=== PATIENT | male | born 1950 | race Caucasian/White ===

== ENCOUNTER 2018-12-06 09:17 | Inpatient (IN) | payer MEDICARE, OTHER ==
[~2018-12-06] VITALS: Ht 172.7 cm; Wt 72.3 kg
[2018-12-06] MEDS ORDERED: NS IV 1000 ML 1,000 ML IV ONE (09:34)
[2018-12-06 09:42] LABS: BILIRUBIN,URINE NEGATIVE (NEGATIVE); CLARITY,URINE CLEAR; COLOR,URINE YELLOW; GLUCOSE, URINE (UA) NEGATIVE (NEGATIVE); KETONES,URINE NEGATIVE (NEGATIVE); LEUKOCYTE ESTERASE ,URINE NEGATIVE (NEGATIVE); NITRITE,URINE NEGATIVE (NEGATIVE); PH,URINE 7 (5-9); PROTEIN,URINE NEGATIVE (NEGATIVE); UROBILINOGEN,URINE 1 MG/DL (NORMAL)
[2018-12-06 09:43] LABS: BASOPHILS % (AUTO) 0 % (0-10); EOSINOPHILS % (AUTO) 0 % (0-10); HEMATOCRIT 44 % (40-54); HEMOGLOBIN 15.2 G/DL (13.3-17.7); LYMPHOCYTES # (AUTO) 0.8 X 10^3 (1.0-4.0); LYMPHOCYTES % (AUTO) 10 % (12-44); MEAN CORPUSCULAR HEMOGLOBIN 30 PG (25-34); MEAN CORPUSCULAR HGB CONC 35 G/DL (32-36); MEAN CORPUSCULAR VOLUME 88 FL (80-99); MEAN PLATELET VOLUME 9.2 FL (7.4-10.4); MONOCYTES # (AUTO) 1.3 X 10^3 (0.0-1.0); MONOCYTES % (AUTO) 16 % (0-12); NEUTROPHILS # (AUTO) 5.9 X 10^3 (1.8-7.8); NEUTROPHILS % (AUTO) 74 % (42-75); PLATELET COUNT 193 10^3/uL (130-400); RED CELL DISTRIBUTION WIDTH 12.7 % (10.0-14.5); WHITE BLOOD COUNT 7.9 10^3/uL (4.3-11.0)
[2018-12-06] MEDS ORDERED: RT-ALBUTEROL/IPRATROPIUM 3 ML (DUONEB) VIAL INH ONE (09:45)
[2018-12-06 09:51] LABS: BACTERIA,URINE NEGATIVE /HPF
[2018-12-06 09:54] LABS: ALANINE AMINOTRANSFERASE 20 U/L (0-55); ALKALINE PHOSPHATASE 96 U/L (40-136); BILIRUBIN,TOTAL 0.6 MG/DL (0.1-1.0); BUN/CREATININE RATIO 8; CALCIUM 9.6 MG/DL (8.5-10.1); CARBON DIOXIDE 26 MMOL/L (21-32); CHLORIDE 99 MMOL/L (98-107); CREATININE SERUM 1.18 MG/DL (0.60-1.30); GFR ESTIMATED > 60; GLUCOSE 98 MG/DL (70-105); MAGNESIUM 2.2 MG/DL (1.8-2.4); POTASSIUM 3.8 MMOL/L (3.6-5.0); SODIUM 136 MMOL/L (135-145)
[2018-12-06 09:56] LABS: AMPHETAMINE SCREEN, URINE NEGATIVE (NEGATIVE); BARBITURATE SCREEN URINE NEGATIVE (NEGATIVE); BENZODIAZEPINES SCREEN URINE NEGATIVE (NEGATIVE); CANNABINOID SCREEN, URINE NEGATIVE (NEGATIVE); COCAINE SCREEN URINE NEGATIVE (NEGATIVE); METHADONE STAT NEGATIVE (NEGATIVE); METHAMPHETAMINE SCREEN URINE S NEGATIVE (NEGATIVE); OPIATE SCREEN URINE NEGATIVE (NEGATIVE); OXYCODONE STAT NEGATIVE (NEGATIVE); PROPOXYPHENE STAT NEGATIVE (NEGATIVE); TRICYCLIC ANTIDEPRESSANTS SCRE NEGATIVE (NEGATIVE)
[2018-12-06 10:14] LABS: TSH (THYROID ANALYZER) 1.23 UIU/ML (0.35-4.94)
[2018-12-06] MEDS ORDERED: BSS 15 ML IR PRN (10:15)
--- NOTE | 2018-12-06 10:21 | Diagnostic Imaging Report ---
INDICATION: Altered level status. Comparison made with prior examination from 10/18/14. FINDINGS: The heart size, mediastinal configuration, and pulmonary vascularity are within normal limits. There is no pleural effusion, pneumothorax, or pneumonia. The osseous structures are unremarkable. IMPRESSION: No acute cardiopulmonary abnormality. Dictated by: Dictated on workstation # [id number]
[2018-12-06] MEDS ORDERED: RSP3T (10:56)
[2018-12-06] MEDS ORDERED: [UNRECOGNIZED DRUG - CODE] (10:56)
[2018-12-06] MEDS ORDERED: CLON1TAB13 PO (11:07)
[2018-12-06] MEDS ORDERED: BUPR200T2 PO (11:07)
[2018-12-06] MEDS ORDERED: BNZT1T (11:07)
[2018-12-06] MEDS ORDERED: CLOM25CA3 PO (11:07)
[2018-12-06] MEDS ORDERED: LACTATED RINGERS 1,000 ML IV ONE (11:13)
--- NOTE | 2018-12-06 13:57 | ED General ---
General Chief Complaint: Altered Mental Status Stated Complaint: AMS Nursing Triage Note: Pt to ED via EMS for altered mental status. Pt's sister reports pt has schizophrenia and dementia and is cared for by brother and sister. Sister reports pt began not feeling well a couple of days ago. Sister reports pt is hoarse and has had a cough. Sister reported pt was eating supper last night and then didn't want to smoke or have Dr. Pepper. Sister reports pt "went out" last night and then "came to" again. Sister also reports pt became immobile last night. Pt appears very dry, nose is crusty and eyes are matted shut. Nursing Sepsis Screen: No Definite Risk Source of Information: Patient Exam Limitations: No Limitations History of Present Illness Date Seen by Provider: Dec 06, 2018 Time Seen by Provider: 09:20 Initial Comments This 68-year-old gentleman presents to the emergency room via EMS with altered mental status and weakness. He is accompanied by his brother and sister with whom he lives. They assist with his care. He has paranoid schizophrenia and probably some early dementia. They report he complained of not feeling well over the past couple of days. They passed this off as part of his paranoia. However, they also noted he has sounded coarse and congested. Last night he developed a decreased level of alertness. He did not eat supper. Patient generally smokes and drinks Dr. Pepper throughout the day. He stopped doing both of these things last night and became increasingly somnolent. Mother and sister became more concerned today and activated EMS. Patient is responsive to voice but very somnolent upon arrival. He sounds congested and has mattering of both eyes which has caused his eyes to be sealed shut. He is afebrile. His primary care providers Dr. Vitale. His psychiatrist is Dr. De León in [place]. [facility] Allergies and Home Medications Allergies Coded Allergies: No Known Drug Allergies (Unverified , 12/06/18) Home Medications Clonazepam 1 Mg Tablet, 1 tablet twice a day, (Reported) Trifluoperazine Hcl 5 Mg Tab, 1 bid, (Reported) Patient Home Medication List Home Medication List Reviewed: Yes Review of Systems Review of Systems Constitutional: see HPI, weakness EENTM: see HPI Respiratory: see HPI Cardiovascular: no symptoms reported Gastrointestinal: see HPI Genitourinary: no symptoms reported Musculoskeletal: no symptoms reported Skin: no symptoms reported Psychiatric/Neurological: See HPI Hematologic/Lymphatic: No Symptoms Reported Immunological/Allergic: no symptoms reported Past Ksjaioc-Medkug-Wehpcr Hx Past Med/Social Hx: Reviewed Nursing Past Med/Soc Hx Patient Social History Alcohol Use: Denies Use Recreational Drug Use: No Smoking Status: Current Everyday Smoker Type Used: Cigarettes 2nd Hand Smoke Exposure: Yes Recent Foreign Travel: No Contact w/Someone Who Travel: No Recent Infectious Disease Expo: No Recent Hopitalizations: No Seasonal Allergies Seasonal Allergies: No Past Medical History Surgeries: Yes (esophageal surgery for acid reflux) Tonsillectomy Respiratory: No Cardiac: No Neurological: Yes Dementia Genitourinary: No Gastrointestinal: No Musculoskeletal: No Endocrine: No HEENT: No Cancer: No Psychosocial: Yes Schizophrenia Blood Disorders: No Physical Exam Vital Signs Vital Signs - First Documented 12/06/18 12/06/18 09:18 16:47 Temp 99.6 Pulse 91 Resp 20 B/P (MAP) 148/87 (107) Pulse Ox 93 O2 Delivery Room Air FiO2 21 Capillary Refill : Less Than 3 Seconds Height, Weight, BMI Height: 5'7.00" Weight: 165lbs. oz. 74.057114bj; BMI Method:Stated General Appearance: No Apparent Distress, WD/WN, Other (Decreased level of alertness) HEENT: PERRL/EOMI, Other (Eyes were matted shut until cleaned. Thick mucus in the oropharynx. Portions of TM visualized and normal bilaterally.) Neck: Normal Inspection Respiratory: Lungs Clear, No Accessory Muscle Use, No Respiratory Distress, Decreased Breath Sounds, Other (Upper airway congestion) Cardiovascular: Regular Rate, Rhythm, No Edema, No Murmur Extremity: Normal Inspection, No Pedal Edema Neurologic/Psychiatric: No Motor/Sensory Deficits, Other (Follows commands, moves all extremities, sluggish but alert) Skin: Normal Color, Warm/Dry Focused Exam Lactate Level 12/06/18 13:55: Lactic Acid Level 1.57 Progress/Results/Core Measures Suspected Sepsis Recent Fever Within 48 Hours: No Infection Criteria Present: None New/Unexplained Altered Menta: No Sepsis Screen: No Definite Risk SIRS Temperature:99.6 Pulse: 91 Respiratory Rate: 20 Laboratory Tests 12/06/18 09:21: White Blood Count 7.9 Blood Pressure 148 /87 Mean: 107 12/06/18 13:55: Lactic Acid Level 1.57 Laboratory Tests 12/06/18 09:21: Creatinine 1.18, Platelet Count 193, Total Bilirubin 0.6 Results/Orders Lab Results Laboratory Tests Test 12/06/18 09:21 12/06/18 09:35 12/06/18 13:39 12/06/18 13:55 Range/Units White Blood Count 7.9 4.3-11.0 10^3/uL Red Blood Count 5.01 4.35-5.85 10^6/uL Hemoglobin 15.2 13.3-17.7 G/DL Hematocrit 44 40-54 % Mean Corpuscular Volume 88 80-99 FL Mean Corpuscular Hemoglobin 30 25-34 PG Mean Corpuscular Hemoglobin Concent 35 32-36 G/DL Red Cell Distribution Width 12.7 10.0-14.5 % Platelet Count 193 130-400 10^3/uL Mean Platelet Volume 9.2 7.4-10.4 FL Neutrophils (%) (Auto) 74 42-75 % Lymphocytes (%) (Auto) 10 L 12-44 % Monocytes (%) (Auto) 16 H 0-12 % Eosinophils (%) (Auto) 0 0-10 % Basophils (%) (Auto) 0 0-10 % Neutrophils # (Auto) 5.9 1.8-7.8 X 10^3 Lymphocytes # (Auto) 0.8 L 1.0-4.0 X 10^3 Monocytes # (Auto) 1.3 H 0.0-1.0 X 10^3 Eosinophils # (Auto) 0.0 0.0-0.3 10^3/uL Basophils # (Auto) 0.0 0.0-0.1 10^3/uL Sodium Level 136 135-145 MMOL/L Potassium Level 3.8 3.6-5.0 MMOL/L Chloride Level 99 98-107 MMOL/L Carbon Dioxide Level 26 21-32 MMOL/L Anion Gap 11 5-14 MMOL/L Blood Urea Nitrogen 10 7-18 MG/DL Creatinine 1.18 0.60-1.30 MG/DL Estimat Glomerular Filtration Rate > 60 BUN/Creatinine Ratio 8 Glucose Level 98 70-105 MG/DL Calcium Level 9.6 8.5-10.1 MG/DL Corrected Calcium 9.6 8.5-10.1 MG/DL Magnesium Level 2.2 1.8-2.4 MG/DL Total Bilirubin 0.6 0.1-1.0 MG/DL Aspartate Amino Transf (AST/SGOT) 32 5-34 U/L Alanine Aminotransferase (ALT/SGPT) 20 0-55 U/L Alkaline Phosphatase 96 40-136 U/L C-Reactive Protein High Sensitivity 12.28 H 0.00-0.50 MG/DL Total Protein 7.0 6.4-8.2 GM/DL Albumin 4.0 3.2-4.5 GM/DL TSH [place] Testing 1.23 0.35-4.94 UIU/ML Serum Alcohol < 10 <10 MG/DL Urine Color YELLOW Urine Clarity CLEAR Urine pH 7 5-9 Urine Specific [place] 1.010 L 1.016-1.022 Urine Protein NEGATIVE NEGATIVE Urine Glucose (UA) NEGATIVE NEGATIVE Urine Ketones NEGATIVE NEGATIVE Urine Nitrite NEGATIVE NEGATIVE Urine Bilirubin NEGATIVE NEGATIVE Urine Urobilinogen 1 NORMAL MG/DL Urine Leukocyte Esterase NEGATIVE NEGATIVE Urine RBC (Auto) NEGATIVE NEGATIVE Urine RBC NONE /HPF Urine WBC NONE /HPF Urine Squamous Epithelial Cells NONE /HPF Urine Crystals NONE /LPF Urine Bacteria NEGATIVE /HPF Urine Casts NONE /LPF Urine Mucus NEGATIVE /LPF Urine Culture Indicated NO Urine Opiates Screen NEGATIVE NEGATIVE Urine Oxycodone Screen NEGATIVE NEGATIVE Urine Methadone Screen NEGATIVE NEGATIVE Urine Propoxyphene Screen NEGATIVE NEGATIVE Urine Barbiturates Screen NEGATIVE NEGATIVE Ur Tricyclic Antidepressants Screen NEGATIVE NEGATIVE Urine Phencyclidine Screen NEGATIVE NEGATIVE Urine Amphetamines Screen NEGATIVE NEGATIVE Urine Methamphetamines Screen NEGATIVE NEGATIVE Urine Benzodiazepines Screen NEGATIVE NEGATIVE Urine Cocaine Screen NEGATIVE NEGATIVE Urine Cannabinoids Screen NEGATIVE NEGATIVE Total Creatine Kinase 804 H 30-200 U/L Lactic Acid Level 1.57 0.50-2.00 MMOL/L My Orders Orders - AXEL GRANADOS MD Alcohol (12/06/18 09:34) Cbc With Automated Diff (12/06/18 09:34) Comprehensive Metabolic Panel (12/06/18 09:34) Hs C Reactive Protein (12/06/18 09:34) Drug Screen Stat (Urine) (12/06/18 09:34) Magnesium (12/06/18 09:34) Thyroid Analyzer (12/06/18 09:34) Ua Culture If Indicated (12/06/18 09:34) Ed Iv/Invasive Line Start (12/06/18 09:34) Chest 1 View, Ap/Pa Only (12/06/18 09:34) Albuterol/Ipra Inhalation Soln (Duoneb I (12/06/18 09:45) Svn Small Volume Nebulizer (12/06/18 09:34) Ed Iv/Invasive Line Start (12/06/18 09:34) Ns Iv 1000 Ml (Sodium Chloride 0.9%) (12/06/18 09:34) Balanced Salt Irrigation Soln (Bss Irrig (12/06/18 10:15) Lactated Ringers (Lr 1000 Ml Iv Solution (12/06/18 11:13) Arterial Blood Gas (12/06/18 13:39) Creatine Kinase (12/06/18 13:39) Blood Culture (12/06/18 13:39) Lactic Acid Analyzer (12/06/18 13:39) Azithromycin Injection (Zithromax Inject (12/06/18 14:00) Medications Given in ED Current Medications Medications Dose Ordered Sig/Lisette Route Start Time Stop Time Status Last Admin Dose Admin Albuterol/ Ipratropium 3 ml ONCE ONCE INH 12/06/18 09:45 12/06/18 09:46 DC 12/06/18 09:47 3 ML Lactated Ringer's 1,000 ml @ 0 mls/hr Q0M ONCE IV 12/06/18 11:13 12/06/18 11:14 DC 12/06/18 11:25 1,000 MLS/HR Sodium Chloride 1,000 ml @ 0 mls/hr Q0M ONCE IV 12/06/18 09:34 12/06/18 09:37 DC 12/06/18 09:43 1,000 MLS/HR Vital Signs/I&O 12/06/18 12/06/18 12/06/18 12/06/18 09:18 09:47 15:32 16:00 Temp 99.6 99.6 100.0 Pulse 91 90 Resp 20 20 B/P (MAP) 148/87 (107) 134/76 (95) Pulse Ox 93 93 O2 Delivery Room Air Room Air Room Air 12/06/18 12/06/18 12/06/18 12/06/18 16:00 16:00 16:06 16:47 Pulse 94 91 91 Resp 17 B/P (MAP) 129/66 (87) Pulse Ox 95 94 95 O2 Delivery Room Air Room Air FiO2 21 12/06/18 19:09 Pulse Ox 97 O2 Delivery Room Air Capillary Refill : Less Than 3 Seconds Blood Pressure Mean: 107 Progress Note : Time: 13:54 Progress Note Patient received a DuoNeb treatment which helped loosen some of the secretions and improved aeration. He was hydrated with normal saline followed by LR. He received about 1500 mL before he asked removed his IV. Patient did gradually improve throughout his ER stay. He was able to talk in full sentences and eat some cookies. However, he still remained weak and rather somnolent. He was unable to sit up or stand independently. He was still more confused than baseline. Due to his cough and elevated CRP, blood cultures and lactic acid were obtained. Azithromycin was started empirically. The severe mattering of his eyes was cleared with warm moist cloth. He was then able to open his eyes independently and see normally. Patient's urine has been dark after placement of Silva catheter. I presume he has become dry and is not metabolizing his medications well which is contributing to his altered mental status. Diagnostic Imaging Diagonstic Imaging: Xray Plain Films/CT/US/NM/MRI: chest Comments Chest x-ray viewed by me and report reviewed. See report below: NAME: ALEYDA GUTIERREZ [facility] REC#: [id number] PT STATUS: REG ER : 1950 PHYSICIAN: AXEL GRANADOS MD ADMIT DATE: 12/06/18/ER Signed Date of Exam: 12/06/18 CHEST 1 VIEW, AP/PA ONLY INDICATION: Altered level status. Comparison made with prior examination from 10/18/14. FINDINGS: The heart size, mediastinal configuration, and pulmonary vascularity are within normal limits. There is no pleural effusion, pneumothorax, or pneumonia. The osseous structures are unremarkable. IMPRESSION: No acute cardiopulmonary abnormality. Dictated by: Dictated on workstation # [id number] Dict: 12/06/18 1000 Trans: 12/06/18 1044 Interpreted by: CHARITY SAMUEL MD Electronically signed by: CHARITY SAMUEL MD 12/06/18 1044 Departure Communication (Admissions) Time/Spoke to Admitting Phy: 13:40 Dr. James Impression Primary Impression: Altered mental status Qualified Codes: R41.82 - Altered mental status, unspecified Additional Impressions: Upper respiratory infection Qualified Codes: J06.9 - Acute upper respiratory infection, unspecified Hypovolemia Generalized weakness Schizophrenia Qualified Codes: F20.0 - Paranoid schizophrenia Disposition: 09 ADMITTED INPATIENT Condition: Improved Admissions Decision to Admit Reason: Admit from ER (General) Decision to Admit/Date: Dec 06, 2018 Time/Decision to Admit Time: 13:40 Departure-Patient Inst. Referrals: NO,LOCAL PHYSICIAN (PCP/Family) Primary Care Physician AXEL GRANADOS MD Dec 06, 2018 13:57
[2018-12-06] MEDS ORDERED: AZITHROMYCIN INJECTION 500 MG in NS (IVPB) 250 ML IV ONE (14:00)
--- NOTE | 2018-12-06 15:35 | NUR ---
see med list
[2018-12-06 16:00] VITALS: BP 129/66
[2018-12-06] MEDS ORDERED: ARTIFICAL TEARS 0.4 ML UNIT DOSE (REFRESH PLUS) OU PRN (16:00)
[2018-12-06] MEDS ORDERED: HALOPERIDOL 2 MG (HALDOL) TABLET PO PRN (16:00)
[2018-12-06] MEDS ORDERED: ACETAMINOPHEN 650 MG SUPP (TYLENOL) PR PRN (16:00)
[2018-12-06] MEDS ORDERED: ACETAMINOPHEN 500 MG TAB (TYLENOL) PO PRN ×2 (16:00→18:15)
[2018-12-06] MEDS ORDERED: ONDANSETRON 4 MG/2 ML (SDV) Z0FRAN IV PRN (16:15)
[2018-12-06] MEDS: D5 1/2 NS W/KCL 20 MEQ/L 1,000 ML IV SCH (16:24)
[2018-12-06 16:47] VITALS: BP 129/66
[2018-12-06] MEDS ORDERED: RT-ALBUTEROL/IPRATROPIUM 3 ML (DUONEB) VIAL INH PRN (17:00)
[2018-12-06] MEDS: HALOPERIDOL 0.5 MG (HALDOL) TAB PO PRN (17:54)
[2018-12-06] MEDS ORDERED: diphenhydrAMINE 25 MG TAB (BENADRYL) PO PRN (18:15)
[2018-12-06] MEDS ORDERED: ALPRAZolam 0.25 MG (XANAX) TAB PO PRN (18:15)
[2018-12-06] MEDS ORDERED: HYDROcodone/APAP 5 MG/325 MG (LORTAB) TAB PO PRN (18:15)
[2018-12-06] MEDS ORDERED: DOCUSATE SODIUM 100 MG (COLACE) CAP PO PRN (18:15)
[2018-12-06] MEDS ORDERED: fentaNYL INJECTION 100 MCG/2 ML AMP IVP PRN (18:15)
[2018-12-06] MEDS ORDERED: CALCIUM CARBONATE 500 MG (TUMS) TAB.CHEW PO PRN (18:15)
[2018-12-06] MEDS ORDERED: NICOTINE 21 MG (NICODERM) PATCH TD ONE (18:45)
[2018-12-06 19:00] VITALS: BP 125/63
[2018-12-06] MEDS ORDERED: NICOTINE 21 MG (NICODERM) PATCH ONE (19:32)
[2018-12-06 20:00] VITALS: BP 142/74
[2018-12-06] MEDS: SENNA W/DOCUSATE (SENOKOT S) TABLET PO SCH (20:57)
[2018-12-07] VITALS: BP 133/59
[2018-12-07] MEDS: D5 1/2 NS W/KCL 20 MEQ/L 1,000 ML IV SCH ×3 (01:42→21:31)
[2018-12-07] MEDS: HALOPERIDOL 5 MG/ML (HALDOL) AMP IM PRN ×2 (03:15→21:31)
[2018-12-07 04:00] VITALS: BP 149/75
[2018-12-07 04:15] LABS: BASOPHILS % (AUTO) 0 % (0-10); EOSINOPHILS % (AUTO) 0 % (0-10); HEMATOCRIT 40 % (40-54); HEMOGLOBIN 13.7 G/DL (13.3-17.7); LYMPHOCYTES % (AUTO) 15 % (12-44); MEAN CORPUSCULAR HEMOGLOBIN 30 PG (25-34); MEAN CORPUSCULAR HGB CONC 35 G/DL (32-36); MEAN CORPUSCULAR VOLUME 87 FL (80-99); MONOCYTES # (AUTO) 1.1 X 10^3 (0.0-1.0); MONOCYTES % (AUTO) 16 % (0-12); NEUTROPHILS # (AUTO) 4.6 X 10^3 (1.8-7.8); NEUTROPHILS % (AUTO) 68 % (42-75); PLATELET COUNT 195 10^3/uL (130-400); RED CELL DISTRIBUTION WIDTH 12.3 % (10.0-14.5); WHITE BLOOD COUNT 6.7 10^3/uL (4.3-11.0)
[2018-12-07 04:38] LABS: BUN/CREATININE RATIO 9; CALCIUM 8.8 MG/DL (8.5-10.1); CARBON DIOXIDE 22 MMOL/L (21-32); CHLORIDE 100 MMOL/L (98-107); CREATININE SERUM 0.85 MG/DL (0.60-1.30); GFR ESTIMATED > 60; GLUCOSE 111 MG/DL (70-105); POTASSIUM 3.5 MMOL/L (3.6-5.0); SODIUM 132 MMOL/L (135-145)
--- NOTE | 2018-12-07 06:43 | Diagnostic Imaging Report ---
Indication: Respiratory tract infection, cough. Comparison: 12/06/2018 Findings: Single view of the chest demonstrates minimal atelectasis in the left base. The right lung is clear. The heart is normal. There is no pneumothorax. Osseous structures normal. Impression: Minimal atelectasis left base, there is no significant change. Dictated by: Dictated on workstation # [id number]
--- NOTE | 2018-12-07 08:25 | History & Physicial ---
History of Present Illness History of Present Illness Reason for visit/HPI PT IS A 68 Y/O MALE WHO IS KNOWN TO ME FROM CLINIC. HE HAS HISTORY OF SCHIZOPHRENIA AND HAS BEEN WELL MAINTAINED ON HIS CURRENT REGIMEN. HE REPORTS - ALONG WITH THE HELP OF HIS BROTHER AND SISTER, THAT HE HAD BEEN FEEING POORLY FOR A FEW DAYS - THEY REPORT THAT WHEN THEY WENT TO HIS HOUSE YESTERDAY - HE HAD CRUSTING AND SWELLING OF HIS EYES, SIGNIFICANT WEAKNESS WITH THE INABILITY TO AMBULATE DUE TO THE PAIN AND WEAKNESS. THEY DO NOT REMEMBER ANY SPECIFIC INCITING EVENT - HE CANNOT APPROPRIATELY ANSWER QUESTIONS. Date of Admission Dec 06, 2018 at 13:40 Date Seen by a Provider: Dec 07, 2018 Time Seen by a Provider: 08:30 I consulted on this patient on 12/07/18 08:30 Attending Physician Fausto Vitale MD Admitting Physician FAUSTO VITALE MD Consult Allergies and Home Medications Allergies Coded Allergies: No Known Drug Allergies (Unverified , 12/06/18) Home Medications Benztropine Mesylate 1 Mg Tablet, 1 MG PO DAILY, (Reported) Benztropine Mesylate 1 Mg Tablet, 2 MG PO HS, (Reported) TAKES 2 (1MG) TABLETS Bupropion HCl 200 Mg Tablet.er, 200 MG PO DAILY, (Reported) Clomipramine HCl 25 Mg Capsule, 25 MG PO HS, (Reported) Clonazepam 1 Mg Tablet, 1 MG PO BID, (Reported) Risperidone 3 Mg Tablet, PO UD, (Reported) TAKES 3MG TWICE DAILY ON EVEN DAYS ALTERNATING EVERY OTHER DAY WITH 3MG AM AND 6MG PM ON ODD DAYS. Trifluoperazine HCl 5 Mg Tablet, 5 MG PO BID, (Reported) Patient Home Medication List Home Medication List Reviewed: Yes Past Epexddn-Hwdsky-Motjyg Hx Patient Social History Marrital Status: single Number of Children: 0 Number of living children: 0 Living Status: LIVES IN APARTMENT BY HIMSELF Employed/Student: unemployed Alcohol Use: Denies Use Recreational Drug Use: No Smoking Status: Current Everyday Smoker Type Used: Cigarettes 2nd Hand Smoke Exposure: Yes Physical Abuse Screen: No Sexual Abuse: No Recent Foreign Travel: No Contact w/other who traveled: No Recent Hopitalizations: No Recent Infectious Disease Expo: No Immunizations Up To Date Date of Pneumonia Vaccine: Dec 27, 2014 Seasonal Allergies Seasonal Allergies: No Surgeries Yes (esophageal surgery for acid reflux) Tonsillectomy Respiratory No Cardiovascular No Neurological Yes Dementia Reproductive System Hx Reproductive Disorders: No Sexually Transmitted Disease: No HIV/AIDS: No Genitourinary No Gastrointestinal No Musculoskeletal No Endocrine History of Endocrine Disorders: No HEENT History of HEENT Disorders: No Loss of Vision: Denies Hearing Impairment: Denies Cancer No Psychosocial History of Psychiatric Problem: Yes Behavioral Health Disorders: Schizophrenia Blood Transfusions History of Blood Disorders: No Reviewed Nursing Assessment Reviewed/Agree w Nursing PMH: Yes Family Medical History Significant Family History: Heart Disease, Cancer (OVARIAN CANCER - SISTER), Diabetes, Hypertension Review of Systems Constitutional: No chills, No fever; malaise, weakness EENTM: tearing (EYE DISCHARGE), other (SWELLING AROUND EYES); No throat pain Respiratory: No cough, No dyspnea on exertion, No short of breath, No wheezing Cardiovascular: No chest pain, No edema, No palpitations Gastrointestinal: No abdominal pain, No nausea, No vomiting Genitourinary: no symptoms reported Musculoskeletal: muscle pain; No muscle stiffness; muscle weakness Skin: lesions (DRYNESS AND IRRITATION ON LOWER LEGS, SCABBED) Psychiatric/Neurological: Anxiety, Depressed, Weakness All Other Systems Reviewed Negative Unless Noted: Yes Physical Exam Vital Signs Vital Signs - First Documented 12/06/18 12/06/18 09:18 16:47 Temp 99.6 Pulse 91 Resp 20 B/P (MAP) 148/87 (107) Pulse Ox 93 O2 Delivery Room Air FiO2 21 Capillary Refill : Less Than 3 Seconds Height, Weight, BMI Height: 5'8.00" Weight: 161lbs. 2.0oz. 73.479928yb; 24.2 BMI Method:Stated General Appearance: WD/WN, Mild Distress Eyes: Bilateral Eye PERRL, Bilateral Eye EOMI, Bilateral Eye Other (ERYTHEMA OF EYES, CRUSTING AND DISCHARGE - WORSE ON RIGHT THAN LEFT) HEENT: No Pharyngeal Erythema Neck: Full Range of Motion, Non Tender, Supple Respiratory: Chest Non Tender, Lungs Clear, Normal Breath Sounds, No Accessory Muscle Use, No Respiratory Distress Cardiovascular: Regular Rate, Rhythm, No Edema, Normal Peripheral Pulses Gastrointestinal: Normal Bowel Sounds, Non Tender, Soft Rectal: Deferred Back: Normal Inspection Extremity: Normal Capillary Refill, Non Tender, No Calf Tenderness, No Pedal Edema Neurologic/Psychiatric: Disoriented Skin: Warm/Dry, Other (SCRATCHES ON LOWER LEGS) Lymphatic: No Adenopathy Assessment/Plan Assessment and Plan ELEVATED CRP ELEVATED MYOGLOBIN SCHIZOPHRENIA HYPONATREMIA HYPOKALEMIA ELEVATED CRP WITH ELEVATED MYOGLOBIN - REPEAT LABS TOMORROW - CONTINUE WITH HYDRATION. SCHIZOPHRENIA - RESUME HOME REGIMEN - MONITOR SYMPTOMS - WE MAY HAVE TO ADJUST HIS MEDICATIONS DOWN SLIGHTLY SOME OF HIS MEDICATIONS MAY CAUSE HIS SYMPTOMS. HYPONATREMIA AND HYPOKALEMIA - CONTINUE WITH FLUIDS - REPEAT LABS - MAY NEED TO ADJUST MEDICATIONS FURTHER. PT WALKS OUT OF DOORS, DOES NOT DRIVE, AND DUE TO HIS CONFUSION, MENTAL STATUS CHANGES BEYOND HIS USUAL - WE WILL THEREFORE CHECK TICK PANEL AND CHECK WEST NILE VIRUS PANEL. Admission Diagnosis ELEVATED CRP ELEVATED MYOGLOBIN SCHIZOPHRENIA HYPONATREMIA HYPOKALEMIA CHECK TICK PANEL CHECK WEST NILE VIRUS PANEL. Admission Status: Inpatient Order (span 2 midnights) Reason for Inpatient Admission: ADMISSION TO HOSPITAL INPATIENT FOR SEVERE INFLAMMATION, WITH CRP OF 12 AND MYOGLOBIN OF 800, NEEDS FLUIDS AND CLOSE MONITORING Clinical Quality Measures DVT/VTE Risk/Contraindication: Risk Factor Score Per Nursin RFS Level Per Nursing on Admit: 4+=Very High FAUSTO VITALE MD Dec 07, 2018 08:25
[2018-12-07] MEDS: NICOTINE 21 MG (NICODERM) PATCH TD SCH (10:27)
[2018-12-07] MEDS: SENNA W/DOCUSATE (SENOKOT S) TABLET PO SCH ×2 (10:27→19:56)
[2018-12-07] MEDS: GENTAMICIN 0.3% OPHTH SOLN 5 ML OP SCH ×7 (10:28→21:29)
[2018-12-07] MEDS ORDERED: TRIF5TAB PO (11:05)
[2018-12-07] MEDS ORDERED: BENZ1TAB6 PO ×2 (11:05)
[2018-12-07] MEDS ORDERED: RISP3TAB3 PO (11:05)
--- NOTE | 2018-12-07 11:08 | NUR ---
FAMILY HAD A LIST OF MEDICATIONS WITH THEM IN THE ROOM. THEY VERIFIED HOW THEY GIVE THE PATIENT EACH MEDICATION. THE LIST STATES CLOMIPRAMINE DAILY HOWEVER THEY HAVE CHANGED TO TO HS. HE RECEIVES HIS MEDS THROUGH THE [facility] IN [place] SO I WAS UNABLE TO VERIFY THE LAST DATES FILLED BUT THEY STATE HE HAS BEEN ON THESE SAME MEDICATIONS FOR SOME TIME AND THE LIST IS UP TO DATE.
[2018-12-07 12:00] VITALS: BP 119/71
[2018-12-07] MEDS: AZITHROMYCIN 250 MG TAB (ZITHROMAX) PO SCH (15:06)
--- NOTE | 2018-12-07 15:22 | NUR ---
Pt is Latter-Day. Fire Regulator provided prayer and Communion.
[2018-12-07 16:00] VITALS: BP 162/85
[2018-12-07 19:45] VITALS: BP 173/94
[2018-12-07] MEDS: HALOPERIDOL 0.5 MG (HALDOL) TAB PO PRN (19:56)
[2018-12-07] MEDS: LORazepam INJ 2 MG/ML (ATIVAN) VIAL IV PRN (22:52)
--- NOTE | 2018-12-07 22:56 | NUR ---
Patient combative with staff, belligerent at this time. Attempting to climb out of bed. Ativan administered as per order. Bed rails up x 4. Bed exit alarm. Sister remains at the bedside.
[2018-12-07 23:15] VITALS: BP 126/94
[2018-12-07] MEDS ORDERED: WATER (STERILE) FOR INJECTION 10 ML ONE (23:56)
[2018-12-08] MEDS ORDERED: DIAZEPAM INJ 10 MG/2 ML (VALIUM) SYR IVP PRN
[2018-12-08] MEDS ORDERED: ZIPRASIDONE 20 MG INJ (GEODON) VIAL IM PRN
[2018-12-08] MEDS: GENTAMICIN 0.3% OPHTH SOLN 5 ML OP SCH ×12 (00:06→22:05)
--- NOTE | 2018-12-08 00:10 | NUR ---
[id number] patient continues to be combative and not cooperative with staff. Attempting to get out of the bed. Nurse Aide at the bedside. Call to Dr Vitale to update on patient condition. Order for Valium 2mg IV.
--- NOTE | 2018-12-08 00:13 | NUR ---
[id number] Vitale to inform that we do not have access to IV Valium at this time. Order for Lluvia received.
[2018-12-08 03:48] VITALS: BP 161/74
[2018-12-08 03:56] LABS: HEMOGLOBIN 14.9 G/DL (13.3-17.7); MEAN PLATELET VOLUME 9.3 FL (7.4-10.4); RED CELL DISTRIBUTION WIDTH 12.2 % (10.0-14.5); WHITE BLOOD COUNT 7.7 10^3/uL (4.3-11.0)
[2018-12-08 04:20] LABS: ALANINE AMINOTRANSFERASE 27 U/L (0-55); ALBUMIN 3.4 GM/DL (3.2-4.5); ALKALINE PHOSPHATASE 90 U/L (40-136); BILIRUBIN,TOTAL 0.4 MG/DL (0.1-1.0); BUN/CREATININE RATIO 10; CALCIUM 9.2 MG/DL (8.5-10.1); CARBON DIOXIDE 24 MMOL/L (21-32); CHLORIDE 104 MMOL/L (98-107); CREATININE SERUM 0.82 MG/DL (0.60-1.30); GFR ESTIMATED > 60; GLUCOSE 101 MG/DL (70-105); SODIUM 137 MMOL/L (135-145); TOTAL PROTEIN 6.1 GM/DL (6.4-8.2)
[2018-12-08 08:00] VITALS: BP 141/75
--- NOTE | 2018-12-08 08:43 | Progress Note ---
Focused Exam Lactate Level 12/06/18 13:55: Lactic Acid Level 1.57 Objective Exam Last Set of Vital Signs Vital Signs Date Time Temp Pulse Resp B/P (MAP) Pulse Ox O2 Delivery O2 Flow Rate FiO2 12/08/18 08:00 88 15 Room Air 12/08/18 08:00 98.4 12/08/18 03:40 95 12/06/18 16:47 21 Capillary Refill : Less Than 3 Seconds I&O Intake and Output 12/08/18 00:00 Intake Total 4595 ml Output Total 1700 ml Balance 2895 ml Intake Oral 1595 ml IV Total 3000 ml Output Urine Total 1700 ml # Voids 1 # Urine Diapers 5 Results Lab Laboratory Tests 12/07/18 10:31: Lyme Disease Screen IgG & IgM Ab 0.07, Lyme Antibody Interpretation Negative, [place] Antibody <1:20 12/07/18 21:50: Total Creatine Kinase 563H 12/08/18 03:45: White Blood Count 7.7, Red Blood Count 4.90, Hemoglobin 14.9, Hematocrit 42, Mean Corpuscular Volume 86, Mean Corpuscular Hemoglobin 30, Mean Corpuscular Hemoglobin Concent 35, Red Cell Distribution Width 12.2, Platelet Count 203, Mean Platelet Volume 9.3, Erythrocyte Sedimentation Rate 35H, Sodium Level 137, Potassium Level 4.0, Chloride Level 104, Carbon Dioxide Level 24, Anion Gap 9, Blood Urea Nitrogen 8, Creatinine 0.82, Estimat Glomerular Filtration Rate > 60, BUN/Creatinine Ratio 10, Glucose Level 101, Calcium Level 9.2, Corrected Calcium 9.7, Total Bilirubin 0.4, Aspartate Amino Transf (AST/SGOT) 40H, Alanine Aminotransferase (ALT/SGPT) 27, Alkaline Phosphatase 90, C-Reactive Protein High Sensitivity 10.74H, Total Protein 6.1L, Albumin 3.4 Microbiology 12/06/18 Blood Culture - Preliminary, Resulted No growth Clinical Quality Measures Admission Status Admission Dx ELEVATED CRP ELEVATED MYOGLOBIN SCHIZOPHRENIA HYPONATREMIA HYPOKALEMIA CHECK TICK PANEL CHECK WEST NILE VIRUS PANEL. DVT/VTE Risk/Contraindication: Risk Factor Score Per Nursin RFS Level Per Nursing on Admit: 4+=Very High FAUSTO BEACH MD Dec 08, 2018 08:43
[2018-12-08] MEDS: SENNA W/DOCUSATE (SENOKOT S) TABLET PO SCH ×2 (08:54→20:18)
[2018-12-08] MEDS: BENZTROPINE MESYLATE 1 MG (COGENTIN) TAB PO SCH ×2 (08:54→20:18)
[2018-12-08] MEDS: clonazePAM 1 MG (KlonoPIN) TAB PO SCH ×2 (08:54→20:18)
[2018-12-08] MEDS: NICOTINE 21 MG (NICODERM) PATCH TD SCH (08:55)
[2018-12-08] MEDS: buPROPion SR 100 MG (WELLBUTRIN SR) TAB PO SCH (08:55)
[2018-12-08] MEDS: D5 1/2 NS W/KCL 20 MEQ/L 1,000 ML IV SCH ×2 (08:55→17:47)
[2018-12-08] MEDS ORDERED: NON-FORMULARY MEDICATION 1 EA EA (Bupropion HCl (Wellbutrin Sr) 200 MG) PO SCH (09:00)
[2018-12-08] MEDS ORDERED: PATIENT MAY USE OWN MED,SINGLE MED PO SCH (09:00)
[2018-12-08] MEDS ORDERED: NON-FORMULARY MEDICATION 1 EA EA (Clonazepam 1 MG) PO SCH (09:00)
[2018-12-08] MEDS ORDERED: TRIFLUOPERAZINE 5 MG PO SCH (09:00)
[2018-12-08] MEDS ORDERED: NON-FORMULARY MEDICATION 1 EA EA (Benztropine Mesylate 1 MG) PO SCH (09:00)
--- NOTE | 2018-12-08 10:26 | NUR ---
Called report to LIANE Little on 4th floor. Pt to be transferred to room 414.
[2018-12-08] MEDS: TRIFLUOPERAZINE 5 MG PO SCH ×2 (10:36→20:20)
[2018-12-08] MEDS: risperiDONE 1 MG (RisperDAL) TAB PO SCH (10:37)
--- NOTE | 2018-12-08 10:45 | NUR ---
PATIENT TRANSFERRED TO ROOM 414 VIA RECLINER CHAIR. PATIENT'S BROTHER AND SISTER ACCOMPANIED PATIENT TO ROOM WITH PROJECT/PRODUCTION MANAGER IMAGING'S. PATIENT'S HOME MEDICATIONS LOCKED IN THE MEDICATION WEATHERIZATION OPERATIONS MANAGER THE ROOM. THE PATIENTS ASSIGNED SITTER PCCT BRYON ALSO ACCOMPANIED THE PATIENT FROM ICU. PATIENT AND FAMILY SETTLED IN THE ROOM AND DENY ANY CONCERNS OR NEEDS AT THIS TIME. WILL CONTINUE TO MONITOR
[2018-12-08 11:38] VITALS: BP 151/79
--- NOTE | 2018-12-08 12:24 | NUR ---
CM/SS, respond to consult for behavioral health evaluation. Staff had already made referral to [facility]. Chief Wheelage Clerk visited with patient and his two siblings Hetal Mccloud and Rubén Mccloud. They are established as patient's POAs for both healthcare and assets. There are just the three children and none ever or had children of their own. They shared that patient has had mental illness since adulthood but has been functional and managed well throughout his life. He did complete a Bachelor degree at [employer] in younger years. He was with the same psychiatrist, maribeth, from 1984 to about 2015. During that time, this psychiatrist moved from the area to [place] and then to [place]; Rubén and Hetal continued to take patient to those respective states twice a year to continue consistent care. All three believe he was the reason patient was able to remain stable and function at a maximum level of independence. Patient established in [address] Matt Pedraza at [facility]. Patient has an apartment on [address] where he resides independently. He does stay with Hetal in [place] when he is compromised in any way. Hetal and Rubén are with him for two meals a day and monitor his Rx, they both agree he is no problem regarding taking his Rx faithfully. He reportedly has a group of attorneys who have befriended him and take him to meals and special events in the community. He is concerned at this time that they may not know where he is, family plan to update them today. Rubén and Hetal describe they believe patient's mental health has not changed but that his illness is at the root of his current anxiousness and behaviors, the change in environment and people involved, everything just out of routine. [facility] came to visit patient and siblings as a follow through for referral. Inpatient admission to be determined, patient may do better with outpatient if being in his home environment and routine is more stabilizing. He has long-standing mental health care planning and the team that knows him best may be a better option. Continue to follow for new developments, assist as appropriate.
--- NOTE | 2018-12-08 13:53 | NUR ---
provided prayer and Communion.
--- NOTE | 2018-12-08 13:55 | Physical Therapy Evaluation ---
PT Evaluation-General Medical Diagnosis Admission Date Dec 06, 2018 at 13:40 Medical Diagnosis: AMS/URI/cough Onset Date: Dec 06, 2018 Therapy Diagnosis Therapy Diagnosis: generalized weakness/debility Height/Weight Height (Feet): 5 Height (Inches): 8.00 Weight (Pounds): 160 Weight (Ounces): 0.0 Precautions Precautions/Isolations: Fall Prevention, Standard Precautions Referral Physician: Iam Reason for Referral: Evaluation/Treatment Medical History Pertinent Medical History: Dementia, Smoking Additional Medical History schizophrenia Current History EMS secondary to decrease alertness Reviewed History: Yes Social History Home: Apartment Current Living Status: Alone (with close family assist) Entry Into Home: Level Entry Prior/Core FIM Prior Level of Function Therapy Code Descriptions/Definitions Functional [place] Measure: 0=Not Assessed/NA 4=Minimal Assistance 1=Total Assistance 5=Supervision or Setup 2=Maximal Assistance 6=Modified [place] 3=Moderate Assistance 7=Complete [place] Therapy Quality Codes: 6 Independent with activity with or without an assistive device 5 Patient requires set up or clean up by helper. Patient completes activity by themselves 4 Supervision or touching assist (CGA). [place] provide cues , steadying assist 3 The helper provides less than half the effort to complete the activity 2 The helper provides more than half the effort to complete the activity 1 Dependent. The helper does all the effort to complete an activity 7 Patient refused to complete or attempt activity 9 The patient did not perform the activity before the current illness or injury 88 Not attempted due to Medical conditions or safety concerns Functional Abilities and Goals: Independent: Patient completed the activities by him/herself, with or without an assistive device, with no assistance from a helper. Needed Some Help: Patient needed partial assistance from another person to complete activities. Dependent: A helper completed the activities for the patient. Unknown: Not Applicable: Bed Mobility: 6 Transfers (B,C,W/C) (FIM): 6 Gait: 6 Indoor Mobility (Ambulation): Independent Prior Devices Use: None PT Evaluation-Current Subjective Family states,"[place]." PT addressed patient and he smiled and agreed to PT. Pain Numeric Pain Scale: 0-No Pain Location: No Pain Reported Objective Patient Orientation: Confused Problem Solving: Fair Attachments: IV ROM/Strength ROM Lower Extremities bilateral LE WFL Strength Lower Extremities 4-/5 grossly bilaterally Integumentary/Posture Integumentary refer to nursing notes Bowel Incontinence: No Bladder Incontinence: Yes Posture slightly kyphotic Neuromuscular (Tone, Coordination, Reflexes) diminished coordination Sensory Vision: Functional Hearing: Impaired Sensation Right Lower Extremit: Impaired Sensation Left Lower Extremity: Impaired Transfers Therapy Code Descriptions/Definitions Functional [place] Measure: 0=Not Assessed/NA 4=Minimal Assistance 1=Total Assistance 5=Supervision or Setup 2=Maximal Assistance 6=Modified [place] 3=Moderate Assistance 7=Complete [place] Transfers (B, C, W/C) (FIM): 4 Scootin Supine to/from Sit: 5 Sit to/from Stand: 4 CGA for safety Gait Mode of Locomotion: Walk Anticipated Mode of Locomotion: Walk Gait (FIM): 4 Distance (FIM): 3=150 ft Distance: 225' Gait Level of Assist: 4 Gait Assistive Device: FWW Comments/Gait Description extended UE's with FWW use/NBOS with shuffle gait sequence Balance Sitting Static: Normal Sitting Dynamic: Normal Standing Static: Fair Standing Dynamic: Fair Assessment/Needs 68 y.o. male, will be seen short term by skilled PT to address functional mobility to ensure safe return to home with family at maximum LOF. Patient is very pleasant and cooperative with therapy on this date. Rehab Potential: Fair PT Short Term Goals Short Term Goals Time Frame: Dec 19, 2018 Transfers (B,C,W/C) (FIM): 5 Gait (FIM): 5 Distance (FIM): 3=150 ft Gait Distance Comment: 250' Gait Level of Assist: 5 Gait Assistive Device: None, FWW PT Plan Problem List Problem List: Balance, Gait Treatment/Plan Treatment Plan: Continue Plan of Care Treatment Plan: Education, Functional Activity José Manuel, Functional Strength, Gait, Safety, Therapeutic Exercise, Transfers Treatment Duration: Dec 19, 2018 Frequency: 6 times per week Estimated Hrs Per Day: .25 hour per day Patient and/or Family Agrees t: Yes Discharge Recommendations Therapy D/C Recommendations: Home w/ Family Support, Jail Placement Time/GCodes Time In: 1325 Time Out: 1340 Total Billed Treatment Time: 15 Total Billed Treatment 1 visit EVMod 15 min BRYANT SCHWARZ PT Dec 08, 2018 13:55
[2018-12-08] MEDS: AZITHROMYCIN 250 MG TAB (ZITHROMAX) PO SCH (15:41)
[2018-12-08 15:53] VITALS: BP 108/72
[2018-12-08 19:18] VITALS: BP 193/89
--- NOTE | 2018-12-08 19:54 | NUR ---
THIS RN CALLED DR BEACH IN REGARDS TO THE PT'S BLOOD PRESSURE BEING 193/89 WITH A HEART RATE OF 89 BPM. ORDERS RECEIVED FOR METOPROLOL TARTATE 25 PO BID START NOW. ORDERS READ BACK AND VERIFIED.
[2018-12-08] MEDS: meTOprolol TARTRATE 25 MG (LOPRESSOR) TABLET PO SCH ×2 (20:18→21:17)
[2018-12-08] MEDS: CLOMIPRAMINE HCL 25 MG PO SCH (20:20)
[2018-12-08] MEDS ORDERED: NON-FORMULARY MEDICATION 1 EA EA (Benztropine Mesylate 2 MG) PO SCH (21:00)
[2018-12-08] MEDS ORDERED: risperiDONE 1 MG (RisperDAL) TAB PO SCH (21:00)
[2018-12-09] MEDS: GENTAMICIN 0.3% OPHTH SOLN 5 ML OP SCH ×14 (00:11→23:39)
[2018-12-09 00:40] VITALS: BP 127/56
[2018-12-09] MEDS: LORazepam INJ 2 MG/ML (ATIVAN) VIAL IV PRN (01:47)
[2018-12-09] MEDS: D5 1/2 NS W/KCL 20 MEQ/L 1,000 ML IV SCH ×2 (04:27→14:32)
[2018-12-09 04:45] VITALS: BP 133/69
[2018-12-09 06:55] LABS: CREATINE KINASE MB 3.3 NG/ML (<6.6)
[2018-12-09 08:00] VITALS: BP 160/90
[2018-12-09] MEDS: NICOTINE 21 MG (NICODERM) PATCH TD SCH (08:50)
[2018-12-09] MEDS: BENZTROPINE MESYLATE 1 MG (COGENTIN) TAB PO SCH ×2 (08:50→21:02)
[2018-12-09] MEDS: meTOprolol TARTRATE 25 MG (LOPRESSOR) TABLET PO SCH ×2 (08:50→21:01)
[2018-12-09] MEDS: clonazePAM 1 MG (KlonoPIN) TAB PO SCH ×2 (08:50→21:01)
[2018-12-09] MEDS: TRIFLUOPERAZINE 5 MG PO SCH ×2 (08:50→21:01)
[2018-12-09] MEDS: buPROPion SR 100 MG (WELLBUTRIN SR) TAB PO SCH (08:50)
[2018-12-09] MEDS: SENNA W/DOCUSATE (SENOKOT S) TABLET PO SCH ×2 (08:50→21:01)
[2018-12-09] MEDS: risperiDONE 1 MG (RisperDAL) TAB PO SCH (09:00)
--- NOTE | 2018-12-09 09:32 | Progress Note ---
Focused Exam Lactate Level 12/06/18 13:55: Lactic Acid Level 1.57 Objective Exam Last Set of Vital Signs Vital Signs Date Time Temp Pulse Resp B/P (MAP) Pulse Ox O2 Delivery O2 Flow Rate FiO2 12/09/18 08:00 97.8 86 20 160/90 (113) 97 Room Air 12/09/18 07:01 21 Capillary Refill : Less Than 3 Seconds I&O Intake and Output 12/09/18 00:00 Intake Total 3465 ml Output Total 3150 ml Balance 315 ml Intake Oral 1465 ml IV Total 2000 ml Output Urine Total 3150 ml # Voids 2 Results Lab Laboratory Tests 12/09/18 06:20: Creatine Kinase MB 3.3, C-Reactive Protein High Sensitivity 7.58H Microbiology 12/06/18 Blood Culture - Preliminary, Resulted No growth Clinical Quality Measures Admission Status Admission Dx ELEVATED CRP ELEVATED MYOGLOBIN SCHIZOPHRENIA HYPONATREMIA HYPOKALEMIA CHECK TICK PANEL CHECK WEST NILE VIRUS PANEL. DVT/VTE Risk/Contraindication: Risk Factor Score Per Nursin RFS Level Per Nursing on Admit: 4+=Very High FAUSTO BEACH MD Dec 09, 2018 09:32
--- NOTE | 2018-12-09 09:59 | NUR ---
CM/SS, continued discharge planning. PLAN: HHC: RN and PT. Discussed agencies with siblings Brennon, they indicate preferred agency as [facility]. Referral initiated, anticipated discharge tomorrow. F/U PSYCHIATRY: Appointment scheduled with Dr. Randell Pedraza MD, [facility], for Friday, December 11, 899. Discussed with siblings, they have some reservation that patient may not be mobile enough. We will monitor him today and in a.m. for progress with PT and make a final decision tomorrow about keeping or rescheduling appointment. Contact should be Bonnie, direct line [phone]. Dr. Vitale updated.
[2018-12-09 11:51] VITALS: BP 115/66
--- NOTE | 2018-12-09 13:32 | Physical Therapy Daily Note ---
PT Daily Note-Current Subjective Pt. up in recliner fast asleep, family in room stating they hope pt, can recover some function so she can care for him at home. Pt. responds minimally when awakened. Pain Location: No Pain Reported Mental Status Patient Orientation: Confused, Eyes Open Attachments: IV Transfers Therapy Code Descriptions/Definitions Functional [place] Measure: 0=Not Assessed/NA 4=Minimal Assistance 1=Total Assistance 5=Supervision or Setup 2=Maximal Assistance 6=Modified [place] 3=Moderate Assistance 7=Complete [place] Therapy Quality Codes: 6 Independent with activity with or without an assistive device 5 Patient requires set up or clean up by helper. Patient completes activity by themselves 4 Supervision or touching assist (CGA). [place] provide cues , steadying assist 3 The helper provides less than half the effort to complete the activity 2 The helper provides more than half the effort to complete the activity 1 Dependent. The helper does all the effort to complete an activity 7 Patient refused to complete or attempt activity 9 The patient did not perform the activity before the current illness or injury 88 Not attempted due to Medical conditions or safety concerns sit to stand CGA to min Gait Training Gait Assistive Device: Handheld Assist pt. with flexed psoture, looks to floor, very narrow JED, feet sliding against each other , crossing ever 3 times reqiring mod assist to maintain balance. mod assist of 2 trialed FWW with no forward movement, [place] TESTER of 2 used to forward displace pt. to initiate gait which was awkward and laborious. pt. sometimes retropulsive, 60ft very slow Treatments up in recliner after rx Assessment Current Status: Fair Progress gait not functional at this Rx PT Short Term Goals Short Term Goals Time Frame: Dec 19, 2018 Transfers (B,C,W/C) (FIM): 5 Gait (FIM): 5 Distance (FIM): 3=150 ft Gait Distance Comment: 250' Gait Level of Assist: 5 Gait Assistive Device: None, FWW PT Plan Treatment/Plan Treatment Plan: Continue Plan of Care Treatment Plan: Education, Functional Activity José Manuel, Functional Strength, Gait, Safety, Therapeutic Exercise, Transfers Treatment Duration: Dec 19, 2018 Frequency: 6 times per week Estimated Hrs Per Day: .25 hour per day Patient and/or Family Agrees t: Yes Safety Risks/Education Patient Education: Gait Training, Transfer Techniques, Correct Positioning, Disease Process, Safety Issues Teaching Recipient: Patient Teaching Methods: Demonstration, Discussion Response to Teaching: Unable to Return Demonstration, Unable to Comprehend, Reinforcement Needed Time/GCodes Time In: 1310 Time Out: 1330 Total Billed Treatment Time: 20 Total Billed Treatment 1,GT20m G Codes Necessary: ZOILA Crockett STITCHING MACHINE SETTER Dec 09, 2018 13:32
--- NOTE | 2018-12-09 13:33 | NUR ---
provided prayer and Communion.
[2018-12-09] MEDS: AZITHROMYCIN 250 MG TAB (ZITHROMAX) PO SCH (16:00)
[2018-12-09 16:03] VITALS: BP 137/65
[2018-12-09 20:15] VITALS: BP 115/56
[2018-12-09] MEDS ORDERED: risperiDONE 1 MG (RisperDAL) TAB PO SCH (21:00)
[2018-12-09] MEDS: CLOMIPRAMINE HCL 25 MG PO SCH (21:01)
[2018-12-10 00:07] VITALS: BP 133/68
[2018-12-10] MEDS: D5 1/2 NS W/KCL 20 MEQ/L 1,000 ML IV SCH ×2 (00:40→11:02)
[2018-12-10] MEDS: GENTAMICIN 0.3% OPHTH SOLN 5 ML OP SCH ×7 (02:39→13:50)
[2018-12-10 04:02] VITALS: BP 140/69
[2018-12-10 08:00] VITALS: BP 148/79
[2018-12-10] MEDS: meTOprolol TARTRATE 25 MG (LOPRESSOR) TABLET PO SCH (08:18)
[2018-12-10] MEDS: clonazePAM 1 MG (KlonoPIN) TAB PO SCH (08:18)
[2018-12-10] MEDS: buPROPion SR 100 MG (WELLBUTRIN SR) TAB PO SCH (08:18)
[2018-12-10] MEDS: BENZTROPINE MESYLATE 1 MG (COGENTIN) TAB PO SCH (08:18)
[2018-12-10] MEDS: risperiDONE 1 MG (RisperDAL) TAB PO SCH (08:19)
[2018-12-10] MEDS: SENNA W/DOCUSATE (SENOKOT S) TABLET PO SCH (08:19)
[2018-12-10] MEDS: NICOTINE 21 MG (NICODERM) PATCH TD SCH (08:20)
[2018-12-10] MEDS: TRIFLUOPERAZINE 5 MG PO SCH (08:20)
--- NOTE | 2018-12-10 09:26 | Discharge Summary ---
Diagnosis/Chief Complaint Date of Admission Dec 06, 2018 at 13:40 Date of Discharge Reason Hospital Visit PT IS A 68 Y/O MALE WHO IS KNOWN TO ME FROM CLINIC. HE HAS HISTORY OF JEFFREY IZOPHRENIA AND HAS BEEN WELL MAINTAINED ON HIS CURRENT REGIMEN. HE REPORTS - ALONG WITH THE HELP OF HIS BROTHER AND SISTER, THAT HE HAD BEEN FEEING POORLY FOR A FEW DAYS - THEY REPORT THAT WHEN THEY WENT TO HIS HOUSE YESTERDAY - HE HAD CRUSTING AND SWELLING OF HIS EYES, SIGNIFICANT WEAKNESS WITH THE INABILITY TO AMBULATE DUE TO THE PAIN AND WEAKNESS. THEY DO NOT REMEMBER ANY SPECIFIC INCITING EVENT - HE CANNOT APPROPRIATELY ANSWER QUESTIONS. Discharge Summary Discharge Physical Examination Allergies: Coded Allergies: No Known Drug Allergies (Unverified , 12/06/18) Vitals & I&Os Vital Signs Date Time Temp Pulse Resp B/P (MAP) Pulse Ox O2 Delivery O2 Flow Rate FiO2 12/10/18 08:00 97.2 61 18 148/79 (102) 96 Room Air 12/09/18 07:01 21 Hospital Course Pending Labs Laboratory Tests 12/10/18 05:05: Total Creatine Kinase 120, C-Reactive Protein High Sensitivity 7.01 Discharge Instructions to patient/family Please see electronic discharge instructions given to patient. Discharge Medications Reviewed and agree with Discharge Medication list on patient's Discharge Instru ction sheet Clinical Quality Measures DVT/VTE Risk/Contraindication: Risk Factor Score Per Nursin RFS Level Per Nursing on Admit: 4+=Very High FAUSTO BEACH MD Dec 10, 2018 09:26
[2018-12-10] MEDS ORDERED: GENT5DRO30 OP (09:30)
[2018-12-10] MEDS ORDERED: METO-333 PO (09:30)
[2018-12-10] MEDS ORDERED: AZIT250T12 PO (09:30)
--- NOTE | 2018-12-10 09:34 | D/C HH Face to Face Order ---
D/C Face to Face Orders Instructions for Patient Via [facility], Patient Instructions/FollowUp: 1 week follow up Physician to follow Patient: umang Discharge Diet for Home: Regular Diet Patient Problems: schizophrenia hypertension generalized weakness rhabdomyolysis Goals for Patient: improved strength and ability to move back into his apartment Patient Data-Allergies,Ht & Wt Patient Allergies: Coded Allergies: No Known Drug Allergies (Unverified , 12/06/18) Height (Feet): 5 Height (Inches): 8.00 Weight (Pounds): 159 Weight (Ounces): 6.0 Home Health Need/Face to Face Date of Face to Face: Dec 10, 2018 Clinical Findings: Generalized weakness and fatigue, Muscle weakness, Unsteady gait I have seen Pt [id number]: Yes Discharged To: Other (living with sister during recovery period before safely moving back to his apartment independently) Diagnosis/Conditions: schizophrenia hypertension generalized weakness rhabdomyolysis Patient is Homebound due to: Kayla fall risk due to instabilty, Muscle weakness Homebound Status Due to the above stated illness, injury or surgical procedure (medical condition or diagnosis) and associated clinical findings, the patient is homebound because of his/her inability to leave home except with aid of a supportive device and/or person AND leaving the home requires a considerable and taxing effort or is medically contraindicated. Pt req the following assistanc: [facility] Nursing Orders Home Health Services Order: Nursing Services, Physical Therapy-Evaluate & Treat Home Health Infusion Therapy Line Start Date: Dec 06, 2018 Therapy Orders Therapy Orders: Physical Therapy, PT to assess for OT Therapy Specific Orders: Eval assistive deivces, Teach strategies/cognitive deficits, Teach enviro modifications/safety, Gait training, Increase strength/endurance Certify Stmt I certify that this patient is under my care and that I, a nurse practitioner or a physician; a litigation legal assistant working with me, had a face to face encounter that - meets the physician face to face encounter requirements with this patient as dated. FAUSTO BEACH MD Dec 10, 2018 09:34
--- NOTE | 2018-12-10 10:34 | NUR ---
CM/SS. Patient discharged today home with his sister,and brother staying to assist. HHC: Referral completed as discussed with [facility], for RN and PT. DME: Siblings stated they have a FWW at home for his use. Brother Rubén has cancelled the followup with Dr. Pedraza in [place] for Friday because they do not feel patient is strong enough for the outing. Family very responsible and will reschedule when patient better prepared to go. Rubén indicates physician recommended SNF but that Hetal wanted to attempt to care for patient at home. He will have the option to go from home to SNF if necessary, would qualify for Medicare skilled benefits.
--- NOTE | 2018-12-10 11:30 | NUR ---
Important Message from Medicare presented, reviewed, signed and placed in patient chart. Patient's brother, Rubén is Power of Plant Control Operator voiced no intention to appeal and deny any needs or further questions at this time.
[2018-12-10 14:09] VITALS: BP 148/79
[2018-12-10] MEDS ORDERED: risperiDONE 2 MG (RisperDAL) TAB PO SCH (21:00)
== END 2018-12-10 14:11 | disposition home health service (06) | DRG 558 ==
LOC: EDUNIT# 09:17 → ER 09:18 → ICU 13:40 → 4TH 12-08 10:51
PROVIDERS: ADMIT Internal Medicine; ATTEND Family Medicine
DX: M62.82 Rhabdomyolysis (principal); E87.1 Hypo-osmolality and hyponatremia; E86.1 Hypovolemia; F20.0 Paranoid schizophrenia; R53.1 Weakness; R79.82 Elevated C-reactive protein (CRP); R79.89 Other specified abnormal findings of blood chemistry; I10 Essential (primary) hypertension; Z66 Do not resuscitate; E87.6 Hypokalemia; J06.9 Acute upper respiratory infection, unspecified; F03.90 Unspecified dementia, unspecified severity, without behavioral disturbance, psychotic disturbance, mood disturbance, and anxiety; R40.0 Somnolence; F17.210 Nicotine dependence, cigarettes, uncomplicated; F41.9 Anxiety disorder, unspecified; F32.9 Major depressive disorder, single episode, unspecified; R26.81 Unsteadiness on feet; Z91.81 History of falling
CPT/HCPCS: 36415; 51702; 71045; 80048; 80053; 80306; 80320; 81000; 82550; 82553; 83605; 83735; 84443; 85025; 85027; 85652; 86141; 86618; 86666; 86668; 86757; 86788; 86789; 87040; 94640; 94664; 96361; 96365

== ENCOUNTER 2018-12-22 15:26 | Inpatient (IN) | payer MEDICARE, OTHER ==
[~2018-12-22] VITALS: Ht 152.4 cm; Wt 64.7 kg
[~2018-12-22 15:26] MED LIST: AZIT250T12 PO; BENZ1TAB6 PO; BNZT1T; BUPR200T2 PO; CLOM25CA3 PO; CLON1TAB13 PO; GENT5DRO30 OP; METO-333 PO; RISP3TAB3 PO; RSP3T; TRIF5TAB PO; [UNRECOGNIZED DRUG - CODE]
[2018-12-22] MEDS ORDERED: LACTATED RINGERS 1,000 ML IV ONE (15:31)
--- OUTSIDE RECORDS SUMMARY | 2018-12-22 15:34 | XMS REPORT | CCD ---
Author Author Loren Vitale MD, [facility] Address [address] [place] [address] Phone Care Team Providers Care Form Worker Name Role Phone PP Unavailable CCM Unavailable Summary Purpose Interface Exchange Insurance Providers Payer name Policy type / Coverage type Covered republican ID Effective Begin Date Effective End Date WPS Medicare Part B Medicare Part B [id number] Unknown [place] [employer] Medicare Part B [id number] Unknown Family history Sister Diagnosis Age At Onset No Family Disease Entered N/A First cousin Diagnosis Age At Onset No Family Disease Entered N/A Mother Diagnosis Age At Onset Dementia Unknown Social History Social History Element Codes Description Effective Dates Marital status Unknown Single 11/26/[address]: 34875727 Current every day smoker 2 packs daily 11/26/[address]: 771489450 Never drinks alcohol 11/26/2011 Has the patient ever used illegal drugs? Unknown Has never used illegal drugs 11/26/2011 Allergies, Adverse Reactions, Alerts Substance Reaction Codes Entered Date Inactivated Date Status * NO KNOWN FOOD ALLERGIES Unknown 11/26/2011 No Inactive Date Active * NO KNOWN DRUG ALLERGIES Unknown 11/26/2011 No Inactive Date Active Past Medical History Illness Codes Condition Status Onset Date Resolved Date Vitamin B12 deficiency anemia due to intrinsic factor deficiency ICD-9: 281.0 ICD-10: D51.0 Active 07/01/2016 Unknown Vitamin B12 deficiency anemia, unspecified ICD-9: 281.1 ICD-10: D51.9 Active 2015 Unknown Other vitamin B12 deficiency anemias ICD-9: 281.1 ICD-10: D51.8 Active 06/02/2016 Unknown Encounter for immunization ICD-9: V04.81 ICD-10: Z23 Active 2018 Unknown Vitamin B deficiency, unspecified ICD-9: 266.2 ICD-10: E53.9 Active 01/28/2016 Unknown Generalized anxiety disorder ICD-9: 300.00 ICD-10: F41.1 Active 11/05/2017 Unknown Major depressive disorder, single episode, unspecified ICD-9: 311 ICD-10: F32.9 Active 11/05/2017 Unknown Other schizophrenia ICD- 9: 295.90 ICD-10: F20.89 Active 11/05/2017 Unknown Encounter for immunization ICD-9: V03.9 ICD-10: Z23 Active 2017 Unknown Encounter for follow-up examination after completed treatment for conditions other than malignant neoplasm ICD-9: V67.9 ICD-10: Z09 Active 12/17/2015 Unknown Cellulitis of right lower limb ICD-9: 682.6 ICD-10: L03.115 Active 12/03/2015 Unknown Encounter for general adult medical examination without abnormal findings ICD-9: V70.0 ICD-10: Z00.00 Active 10/10/2015 Unknown Depression Unknown Active 01/16/2015 Unknown DEPRESSIVE DISORDER NEC ICD-9: 311 Active 01/15/2015 Unknown Leg pain ICD-9: 729.5 Active 01/15/2015 Unknown Medication dose changed ICD-9: V58.69 Active 11/26/2011 Unknown Schizophrenia ICD-9: 295.90 Active 01/15/2015 Unknown Dementia ICD-9: 294.20 Active 11/26/2011 Unknown Rash ICD-9: 782.1 Active 08/02/2014 Unknown B-COMPLEX DEFIC NEC ICD- 9: 266.2 Active 12/30/2013 Unknown VACCIN FOR INFLUENZA ICD- 9: V04.81 Active 05/04/2013 Unknown Myalgia ICD-9: 729.1 Active 12/17/2011 Unknown ALTERED MENTAL STATUS ICD- 9: 780.97 Active 12/10/2011 Unknown Hypokalemia ICD-9: 276.8 Active 12/10/2011 Unknown Orthostatic hypotension ICD-9: 458.0 Active 12/10/2011 Unknown schizophrenia Unknown Active 11/26/2011 Unknown Schizophrenia, chronic condition ICD-9: 295.92 Active 11/26/2011 Unknown Problems Condition Codes Effective Dates Condition Status Vitamin B12 deficiency anemia due to intrinsic factor deficiency ICD-9: 281.0 ICD-10: D51.0 07/01/2016 Active Vitamin B12 deficiency anemia, unspecified ICD-9: 281.1 ICD-10: D51.9 2015 Active Other vitamin B12 deficiency anemias ICD-9: 281.1 ICD-10: D51.8 06/02/2016 Active Encounter for immunization ICD-9: V04.81 ICD-10: Z23 2018 Active Vitamin B deficiency, unspecified ICD-9: 266.2 ICD-10: E53.9 01/28/2016 Active Generalized anxiety disorder ICD-9: 300.00 ICD-10: F41.1 11/05/2017 Active Major depressive disorder, single episode, unspecified ICD-9: 311 ICD-10: F32.9 11/05/2017 Active Other schizophrenia ICD- 9: 295.90 ICD-10: F20.89 11/05/2017 Active Encounter for immunization ICD-9: V03.9 ICD-10: Z23 2017 Active Encounter for follow-up examination after completed treatment for conditions other than malignant neoplasm ICD-9: V67.9 ICD-10: Z09 12/17/2015 Active Cellulitis of right lower limb ICD-9: 682.6 ICD-10: L03.115 12/03/2015 Active Encounter for general adult medical examination without abnormal findings ICD-9: V70.0 ICD-10: Z00.00 10/10/2015 Active Depression Unknown 01/16/2015 Active DEPRESSIVE DISORDER NEC ICD-9: 311 01/15/2015 Active Leg pain ICD-9: 729.5 01/15/2015 Active Medication dose changed ICD-9: V58.69 11/26/2011 Active Schizophrenia ICD-9: 295.90 01/15/2015 Active Dementia ICD-9: 294.20 11/26/2011 Active Rash ICD-9: 782.1 08/02/2014 Active B-COMPLEX DEFIC NEC ICD- 9: 266.2 12/30/2013 Active VACCIN FOR INFLUENZA ICD- 9: V04.81 05/04/2013 Active Myalgia ICD-9: 729.1 12/17/2011 Active ALTERED MENTAL STATUS ICD- 9: 780.97 12/10/2011 Active Hypokalemia ICD-9: 276.8 12/10/2011 Active Orthostatic hypotension ICD-9: 458.0 12/10/2011 Active schizophrenia Unknown 11/26/2011 Active Schizophrenia, chronic condition ICD-9: 295.92 11/26/2011 Active Medications Medication Codes Instructions Start Date Stop Date Status Fill Instructions cyanocobalamin (vit B-12) 1,000 mcg/mL injection solution RxNorm: 706530 Milliliter(s) Inj 11/30/2018 11/30/2018 Inactive cyanocobalamin (vit B-12) 1,000 mcg/mL injection solution RxNorm: 210574 Milliliter(s) Inj 11/02/2018 11/02/2018 Inactive cyanocobalamin (vit B-12) 1,000 mcg/mL injection solution RxNorm: 510588 Milliliter(s) Inj 09/28/2018 09/28/2018 Inactive Wellbutrin SR 100 mg tablet, 12 hr sustained-release RxNorm: 249530 Tablet(s) TAKE ONE TABLET BY MOUTH EVERY NIGHT AT BEDTIME 09/07/2018 03/05/2019 Active cyanocobalamin (vit B-12) 1,000 mcg/mL injection solution RxNorm: 708445 Milliliter(s) Inj 08/28/2018 08/28/2018 Inactive cyanocobalamin (vit B-12) 1,000 mcg/mL injection solution RxNorm: 836847 Milliliter(s) Inj 07/31/2018 07/31/2018 Inactive cyanocobalamin (vit B-12) 1,000 mcg/mL injection solution RxNorm: 938900 Milliliter(s) Inj 07/01/2018 07/01/2018 Inactive cyanocobalamin (vit B-12) 1,000 mcg/mL injection solution RxNorm: 302562 Milliliter(s) Inj 2018 2018 Inactive Wellbutrin SR 100 mg tablet, 12 hr sustained-release RxNorm: 413500 TAKE ONE TABLET BY MOUTH EVERY NIGHT AT BEDTIME 04/28/2018 10/23/2018 Inactive cyanocobalamin (vit B-12) 1,000 mcg/mL injection solution RxNorm: 648043 Milliliter(s) Inj 03/30/2018 03/30/2018 Inactive cyanocobalamin (vit B-12) 1,000 mcg/mL injection solution RxNorm: 575137 1 Milliliter(s) Inj 03/03/2018 03/03/2018 Inactive cyanocobalamin (vit B-12) 1,000 mcg/mL injection solution RxNorm: 479088 1 Milliliter(s) Inj 01/28/2018 01/28/2018 Inactive cyanocobalamin (vit B-12) 1,000 mcg/mL injection solution RxNorm: 274016 Milliliter(s) Inj 12/29/2017 12/29/2017 Inactive cyanocobalamin (vit B-12) 1,000 mcg/mL injection solution RxNorm: 944151 1 Milliliter(s) Inj 12/01/2017 12/01/2017 Inactive Wellbutrin SR 100 mg tablet, 12 hr sustained-release RxNorm: 426657 TAKE ONE TABLET BY MOUTH EVERY NIGHT AT BEDTIME 10/28/2017 04/25/2018 Inactive cyanocobalamin (vit B-12) 1,000 mcg/mL injection solution RxNorm: 514671 1 Milliliter(s) Inj 10/28/2017 10/28/2017 Inactive cyanocobalamin (vit B-12) 1,000 mcg/mL injection solution RxNorm: 163169 Milliliter(s) Inj 09/29/2017 09/29/2017 Inactive cyanocobalamin (vit B-12) 1,000 mcg/mL injection solution RxNorm: 560444 Milliliter(s) Inj 09/02/2017 09/02/2017 Inactive cyanocobalamin (vit B-12) 1,000 mcg/mL injection solution RxNorm: 869378 Milliliter(s) Inj 08/04/2017 08/04/2017 Inactive cyanocobalamin (vit B-12) 1,000 mcg/mL injection solution RxNorm: 810247 1 Milliliter(s) Inj 07/01/2017 07/01/2017 Inactive cyanocobalamin (vit B-12) 1,000 mcg/mL injection solution RxNorm: 346200 Milliliter(s) Inj 05/30/2017 05/30/2017 Inactive cyanocobalamin (vit B-12) 1,000 mcg/mL injection solution RxNorm: 842297 1 Milliliter(s) Inj 2017 2017 Inactive Wellbutrin SR 100 mg tablet, 12 hr sustained-release RxNorm: 184718 TAKE ONE TABLET BY MOUTH EVERY NIGHT AT BEDTIME 04/23/2017 10/19/2017 Inactive cyanocobalamin (vit B-12) 1,000 mcg/mL injection solution RxNorm: 416697 Milliliter(s) Inj 03/31/2017 03/31/2017 Inactive cyanocobalamin (vit B-12) 1,000 mcg/mL injection solution RxNorm: 287554 Milliliter(s) Inj 02/28/2017 02/28/2017 Inactive cyanocobalamin (vit B-12) 1,000 mcg/mL injection solution RxNorm: 848965 Milliliter(s) Inj 02/03/2017 02/03/2017 Inactive cyanocobalamin (vit B-12) 1,000 mcg/mL injection solution RxNorm: 930475 1 Milliliter(s) Inj 12/30/2016 12/30/2016 Inactive cyanocobalamin (vit B-12) 1,000 mcg/mL injection solution RxNorm: 402638 1 Milliliter(s) Inj 12/02/2016 12/02/2016 Inactive Wellbutrin SR 100 mg tablet, 12 hr sustained-release RxNorm: 959252 TAKE ONE TABLET BY MOUTH EVERY NIGHT AT BEDTIME 10/30/2016 04/22/2017 Inactive cyanocobalamin (vit B-12) 1,000 mcg/mL injection solution RxNorm: 652694 Milliliter(s) Inj 10/29/2016 10/29/2016 Inactive cyanocobalamin (vit B-12) 1,000 mcg/mL injection solution RxNorm: 027980 1 Milliliter(s) Inj 10/01/2016 10/01/2016 Inactive cyanocobalamin (vit B-12) 1,000 mcg/mL injection solution RxNorm: 242617 Milliliter(s) Inj 09/02/2016 09/02/2016 Inactive cyanocobalamin (vit B-12) 1,000 mcg/mL injection solution RxNorm: 451796 Milliliter(s) Inj 08/05/2016 08/05/2016 Inactive cyanocobalamin (vit B-12) 1,000 mcg/mL injection solution RxNorm: 421397 1 Milliliter(s) Inj 07/02/2016 07/02/2016 Inactive cyanocobalamin (vit B-12) 1,000 mcg/mL injection solution RxNorm: 819045 Milliliter(s) Inj 06/03/2016 06/03/2016 Inactive cyanocobalamin (vit B-12) 1,000 mcg/mL injection solution RxNorm: 665051 Milliliter(s) Inj 2016 2016 Inactive Wellbutrin SR 100 mg tablet,sustained-release RxNorm: 188831 1 Tablet(s) PO QHS 04/01/2016 10/27/2016 Inactive cyanocobalamin (vit B-12) 1,000 mcg/mL injection solution RxNorm: 457502 Milliliter(s) Inj 04/01/2016 04/01/2016 Inactive cyanocobalamin (vit B-12) 1,000 mcg/mL injection solution RxNorm: 096773 1 Milliliter(s) Inj 03/05/2016 03/05/2016 Inactive cyanocobalamin (vit B-12) 1,000 mcg/mL injection solution RxNorm: 307336 Milliliter(s) Inj 01/29/2016 01/29/2016 Inactive cyanocobalamin (vit B-12) 1,000 mcg/mL injection solution RxNorm: 771858 Milliliter(s) Inj 01/02/2016 01/02/2016 Inactive mupirocin 2 % topical ointment RxNorm: 702453 1 Application TOP BID 12/04/2015 No Stop Date Active doxycycline hyclate 100 mg capsule RxNorm: 1591851 1 Capsule(s) PO BID 12/04/2015 12/13/2015 Inactive cyanocobalamin (vit B-12) 1,000 mcg/mL injection solution RxNorm: 247709 Milliliter(s) Inj 10/30/2015 10/30/2015 Inactive cyanocobalamin (B12)-cobamamide 5,000 mcg-100 mcg sublingual tablet RxNorm: 220960 Tablet(s) SL 10/02/2015 10/02/2015 Inactive Wellbutrin SR 100 mg tablet,sustained-release RxNorm: 134258 1 Tablet(s) PO QHS 09/08/2015 03/31/2016 Inactive cyanocobalamin (vit B-12) 1,000 mcg/mL injection solution RxNorm: 713176 Milliliter(s) Inj 08/29/2015 08/29/2015 Inactive cyanocobalamin (vit B-12) 1,000 mcg/mL injection solution RxNorm: 618141 Milliliter(s) Inj 07/31/2015 07/31/2015 Inactive cyanocobalamin (vit B-12) 1,000 mcg/mL injection solution RxNorm: 262749 Milliliter(s) Inj 06/05/2015 06/05/2015 Inactive cyanocobalamin (vit B-12) 1,000 mcg/mL injection solution RxNorm: 207891 Milliliter(s) Inj 05/01/2015 05/01/2015 Inactive cyanocobalamin (vit B-12) 1,000 mcg/mL injection solution RxNorm: 143987 Milliliter(s) Inj 04/03/2015 04/03/2015 Inactive cyanocobalamin (vit B-12) 1,000 mcg/mL injection solution RxNorm: 751575 Milliliter(s) Inj 02/28/2015 02/28/2015 Inactive cyanocobalamin (vit B-12) 1,000 mcg/mL injection solution RxNorm: 424575 Milliliter(s) Inj 01/30/2015 01/30/2015 Inactive Wellbutrin SR 100 mg tablet,sustained-release RxNorm: 536926 1 Tablet(s) PO QHS 01/16/2015 08/13/2015 Inactive cyanocobalamin (vit B-12) 1,000 mcg/mL injection solution RxNorm: 364305 1 Milliliter(s) Inj 01/02/2015 01/02/2015 Inactive cyanocobalamin (vit B-12) 1,000 mcg/mL injection solution RxNorm: 377256 1 Milliliter(s) Inj 11/28/2014 11/28/2014 Inactive cyanocobalamin (vit B-12) 1,000 mcg/mL injection solution RxNorm: 943390 Milliliter(s) Inj 10/31/2014 10/31/2014 Inactive [SAVINGS FOR NON-COVERED DRUGS -- BIN:[id number], PCN: ASPROD1, Group: XXXXX, ID# [id number], Questions: . THIS IS NOT INSURANCE.] cyanocobalamin (vit B-12) 1,000 mcg/mL injection solution RxNorm: 001544 1 Milliliter(s) Inj daily 10/03/2014 10/03/2014 Inactive [SAVINGS FOR NON-COVERED DRUGS -- BIN:196772, PCN: ASPROD1, Group: XXXXX, ID# [id number], Questions: . THIS IS NOT INSURANCE.] cyanocobalamin (vit B-12) 1,000 mcg/mL injection solution RxNorm: 370569 Milliliter(s) Inj 08/30/2014 08/30/2014 Inactive [SAVINGS FOR NON-COVERED DRUGS -- BIN:880253, PCN: ASPROD1, Group: XXXXX, ID# [id number], Questions: . THIS IS NOT INSURANCE.] nystatin-triamcinolone 100,000 unit/g-0.1 % topical cream RxNorm: 9337892 1 Application TOP BID 08/02/2014 08/08/2014 Inactive [SAVINGS FOR UNINSURED PATIENTS -- BIN:870115, PCN: ASPROD1, Group: [id number], ID# [id number], Process claim through [employer], for questions: . THIS IS NOT INSURANCE.] cyanocobalamin (vit B-12) 1,000 mcg/mL injection solution RxNorm: 173336 Milliliter(s) Inj 08/02/2014 08/02/2014 Inactive [SAVINGS FOR UNINSURED PATIENTS -- BIN:144458, PCN: ASPROD1, Group: [id number], ID# [id number], Process claim through [employer], for questions: . THIS IS NOT INSURANCE.] cyanocobalamin (vit B-12) 1,000 mcg/mL injection kit RxNorm: 153731 Milliliter(s) Inj 07/04/2014 07/04/2014 Inactive [SAVINGS FOR UNINSURED PATIENTS -- BIN:649519, PCN: ASPROD1, Group: [id number], ID# [id number], Process claim through [employer], for questions: . THIS IS NOT INSURANCE.] cyanocobalamin (vit B-12) 1,000 mcg/mL injection solution RxNorm: 783496 Milliliter(s) Inj 05/30/2014 05/30/2014 Inactive cyanocobalamin (vit B-12) 1,000 mcg/mL injection solution RxNorm: 470544 Milliliter(s) Inj 05/02/2014 05/02/2014 Inactive cyanocobalamin (vit B-12) 1,000 mcg/mL injection solution RxNorm: 540714 Milliliter(s) Inj 04/05/2014 04/05/2014 Inactive cyanocobalamin (vit B-12) 1,000 mcg/mL injection solution RxNorm: 795692 Milliliter(s) Inj 03/07/2014 03/07/2014 Inactive cyanocobalamin (vit B-12) 1,000 mcg/mL injection solution RxNorm: 151633 1 Milliliter(s) Inj 02/01/2014 02/01/2014 Inactive cyanocobalamin (vit B-12) 1,000 mcg/mL injection solution RxNorm: 633003 1 Milliliter(s) Inj 12/30/2013 12/30/2013 Inactive [SAVINGS FOR UNINSURED PATIENTS -- BIN:813384, PCN: ASPROD1, Group: [facility], ID# [id number], Process claim through [employer]!, for questions: . THIS IS NOT INSURANCE.] cyanocobalamin (vit B-12) 1,000 mcg/mL injection solution RxNorm: 948654 Milliliter(s) Inj 11/30/2013 11/30/2013 Inactive cyanocobalamin (vit B-12) 1,000 mcg/mL injection solution RxNorm: 019814 1 Milliliter(s) Inj 11/02/2013 11/02/2013 Inactive Vitamin B-12 1,000 mcg/mL injection solution RxNorm: 984239 Milliliter(s) Inj 08/31/2013 08/31/2013 Inactive Vitamin B-12 1,000 mcg/mL injection solution RxNorm: 621342 1 Milliliter(s) Inj 08/04/2013 08/04/2013 Inactive Vitamin B-12 1,000 mcg/mL injection solution RxNorm: 736236 Milliliter(s) Inj 07/06/2013 07/06/2013 Inactive cyanocobalamin (vit B-12) 1,000 mcg/mL injection solution RxNorm: 947683 Milliliter(s) Inj 05/31/2013 05/31/2013 Inactive cyanocobalamin (vit B-12) 1,000 mcg/mL injection kit RxNorm: 752091 Milliliter(s) Inj 05/04/2013 05/04/2013 Inactive cyanocobalamin (vitamin B-12) 1,000 mcg/mL Injection RxNorm: 782213 Milliliter(s) Inj 03/30/2013 03/30/2013 Inactive cyanocobalamin (vitamin B-12) 1,000 mcg/mL Injection RxNorm: 904192 Milliliter(s) Inj 02/02/2013 02/02/2013 Inactive cyanocobalamin (vitamin B-12) 1,000 mcg/mL Injection RxNorm: 134163 Milliliter(s) Inj 12/29/2012 12/29/2012 Inactive cyanocobalamin (vitamin B-12) 1,000 mcg/mL Injection RxNorm: 636330 Milliliter(s) Inj 12/01/2012 12/01/2012 Inactive Vitamin B-12 1,000 mcg tablet RxNorm: 709066 Tablet(s) PO 11/03/2012 11/03/2012 Inactive Vitamin B-12 1,000 mcg/mL Injection RxNorm: 096867 1 Milliliter(s) Inj 09/30/2012 09/30/2012 Inactive triamcinolone acetonide 0.1 % Topical Cream RxNorm: 8230789 1 Application TOP BID 09/30/2012 10/13/2012 Inactive Vitamin B-12 1,000 mcg/mL Injection RxNorm: 682076 1 Milliliter(s) Inj 09/08/2012 09/08/2012 Inactive cyanocobalamin (vitamin B-12) 1,000 mcg/mL Injection RxNorm: 485808 1 Milliliter(s) Inj 08/25/2012 08/25/2012 Inactive cyanocobalamin (vitamin B-12) 1,000 mcg/mL Injection RxNorm: 421947 1 Milliliter(s) Inj 08/11/2012 08/11/2012 Inactive cyanocobalamin (vitamin B-12) 1,000 mcg/mL Injection RxNorm: 677350 1 Milliliter(s) Inj 07/21/2012 07/21/2012 Inactive Vitamin B-12 1,000 mcg/mL Injection RxNorm: 901214 Milliliter(s) Inj 07/07/2012 07/07/2012 Inactive cyanocobalamin (vitamin B-12) 1,000 mcg/mL Injection RxNorm: 364149 1 Milliliter(s) Inj 06/25/2012 06/25/2012 Inactive Vitamin B-12 1,000 mcg/mL Injection RxNorm: 278006 1 Milliliter(s) Inj 06/09/2012 06/09/2012 Inactive Vitamin B-12 1,000 mcg/mL Injection RxNorm: 745588 Milliliter(s) Inj 05/25/2012 05/25/2012 Inactive Vitamin B-12 1,000 mcg/mL Injection RxNorm: 418846 Milliliter(s) Inj 05/12/2012 05/12/2012 Inactive Vitamin B-12 1,000 mcg/mL Injection RxNorm: 869001 Milliliter(s) Inj 04/20/2012 04/20/2012 Inactive Vitamin B-12 1,000 mcg/mL Injection RxNorm: 295770 Milliliter(s) Inj 04/07/2012 04/07/2012 Inactive Vitamin B-12 1,000 mcg/mL Injection RxNorm: 526540 Milliliter(s) Inj 03/10/2012 03/10/2012 Inactive Vitamin B-12 1,000 mcg/mL Injection RxNorm: 844623 Milliliter(s) Inj 02/18/2012 02/18/2012 Inactive Vitamin B-12 1,000 mcg/mL Injection RxNorm: 157689 Milliliter(s) Inj 02/04/2012 02/04/2012 Inactive Vitamin B-12 1,000 mcg/mL Injection RxNorm: 085972 Milliliter(s) Inj 01/21/2012 01/21/2012 Inactive Vitamin B-12 1,000 mcg/mL Injection RxNorm: 757415 Milliliter(s) Inj 01/07/2012 01/07/2012 Inactive Vitamin B-12 1,000 mcg/mL Injection RxNorm: 921947 Milliliter(s) Inj 12/17/2011 12/17/2011 Inactive KCL 10 meq RxNorm: 1 PO daily 12/12/2011 12/16/2011 Inactive Vitamin B-12 1,000 mcg/mL Injection RxNorm: 026296 1 Milliliter(s) Inj monthly No Start Date Active Wellbutrin SR 200 mg Tab RxNorm: 217471 1 Tablet(s) PO daily No Start Date Active Anafranil 25 mg Cap RxNorm: 065985 1 Capsule(s) PO daily No Start Date Active Stelazine 5 mg Tab RxNorm: 998802 1 Tablet(s) PO BID No Start Date Active clonazepam 1 mg Tab RxNorm: 195517 1 Tablet(s) PO BID No Start Date Active risperidone 3 mg Tab RxNorm: 855716 Tablet(s) PO No Start Date Active 2 on even days 3 on odd days Cogentin 1 mg Tab RxNorm: 702063 1 Tablet(s) PO TID No Start Date Active Medication Administered Medication Codes Instructions Start Date Status cyanocobalamin (vit B-12) 1,000 mcg/mL injection solution RxNorm: 616666 Milliliter 11/30/2018 Active cyanocobalamin (vit B-12) 1,000 mcg/mL injection solution RxNorm: 231698 Milliliter 11/02/2018 No longer Active cyanocobalamin (vit B-12) 1,000 mcg/mL injection solution RxNorm: 968237 Milliliter 09/28/2018 No longer Active cyanocobalamin (vit B-12) 1,000 mcg/mL injection solution RxNorm: 314626 Milliliter 08/28/2018 No longer Active cyanocobalamin (vit B-12) 1,000 mcg/mL injection solution RxNorm: 965828 Milliliter 07/31/2018 No longer Active cyanocobalamin (vit B-12) 1,000 mcg/mL injection solution RxNorm: 257125 Milliliter 07/01/2018 No longer Active cyanocobalamin (vit B-12) 1,000 mcg/mL injection solution RxNorm: 375915 Milliliter 2018 No longer Active cyanocobalamin (vit B-12) 1,000 mcg/mL injection solution RxNorm: 142801 Milliliter 03/30/2018 No longer Active cyanocobalamin (vit B-12) 1,000 mcg/mL injection solution RxNorm: 237230 1Milliliter 03/03/2018 No longer Active cyanocobalamin (vit B-12) 1,000 mcg/mL injection solution RxNorm: 536486 1Milliliter 01/28/2018 No longer Active cyanocobalamin (vit B-12) 1,000 mcg/mL injection solution RxNorm: 078914 Milliliter 12/29/2017 No longer Active cyanocobalamin (vit B-12) 1,000 mcg/mL injection solution RxNorm: 005480 1Milliliter 12/01/2017 No longer Active cyanocobalamin (vit B-12) 1,000 mcg/mL injection solution RxNorm: 331443 1Milliliter 10/28/2017 No longer Active cyanocobalamin (vit B-12) 1,000 mcg/mL injection solution RxNorm: 915103 Milliliter 09/29/2017 No longer Active cyanocobalamin (vit B-12) 1,000 mcg/mL injection solution RxNorm: 634949 Milliliter 09/02/2017 No longer Active cyanocobalamin (vit B-12) 1,000 mcg/mL injection solution RxNorm: 132177 Milliliter 08/04/2017 No longer Active cyanocobalamin (vit B-12) 1,000 mcg/mL injection solution RxNorm: 331626 1Milliliter 07/01/2017 No longer Active cyanocobalamin (vit B-12) 1,000 mcg/mL injection solution RxNorm: 159727 Milliliter 05/30/2017 No longer Active cyanocobalamin (vit B-12) 1,000 mcg/mL injection solution RxNorm: 323356 1Milliliter 2017 No longer Active cyanocobalamin (vit B-12) 1,000 mcg/mL injection solution RxNorm: 657257 Milliliter 03/31/2017 No longer Active cyanocobalamin (vit B-12) 1,000 mcg/mL injection solution RxNorm: 450746 Milliliter 02/28/2017 No longer Active cyanocobalamin (vit B-12) 1,000 mcg/mL injection solution RxNorm: 942601 Milliliter 02/03/2017 No longer Active cyanocobalamin (vit B-12) 1,000 mcg/mL injection solution RxNorm: 505571 1Milliliter 12/30/2016 No longer Active cyanocobalamin (vit B-12) 1,000 mcg/mL injection solution RxNorm: 985723 1Milliliter 12/02/2016 No longer Active cyanocobalamin (vit B-12) 1,000 mcg/mL injection solution RxNorm: 504504 Milliliter 10/29/2016 No longer Active cyanocobalamin (vit B-12) 1,000 mcg/mL injection solution RxNorm: 240315 1Milliliter 10/01/2016 No longer Active cyanocobalamin (vit B-12) 1,000 mcg/mL injection solution RxNorm: 400429 Milliliter 09/02/2016 No longer Active cyanocobalamin (vit B-12) 1,000 mcg/mL injection solution RxNorm: 400217 Milliliter 08/05/2016 No longer Active cyanocobalamin (vit B-12) 1,000 mcg/mL injection solution RxNorm: 023309 1Milliliter 07/02/2016 No longer Active cyanocobalamin (vit B-12) 1,000 mcg/mL injection solution RxNorm: 853445 Milliliter 06/03/2016 No longer Active cyanocobalamin (vit B-12) 1,000 mcg/mL injection solution RxNorm: 423814 Milliliter 2016 No longer Active cyanocobalamin (vit B-12) 1,000 mcg/mL injection solution RxNorm: 877390 Milliliter 04/01/2016 No longer Active cyanocobalamin (vit B-12) 1,000 mcg/mL injection solution RxNorm: 093638 1Milliliter 03/05/2016 No longer Active cyanocobalamin (vit B-12) 1,000 mcg/mL injection solution RxNorm: 911694 Milliliter 01/29/2016 No longer Active cyanocobalamin (vit B-12) 1,000 mcg/mL injection solution RxNorm: 248230 Milliliter 01/02/2016 No longer Active cyanocobalamin (vit B-12) 1,000 mcg/mL injection solution RxNorm: 262423 Milliliter 10/30/2015 No longer Active cyanocobalamin (B12)-cobamamide 5,000 mcg-100 mcg sublingual tablet RxNorm: 188466 Tablet 10/02/2015 No longer Active cyanocobalamin (vit B-12) 1,000 mcg/mL injection solution RxNorm: 585357 Milliliter 08/29/2015 No longer Active cyanocobalamin (vit B-12) 1,000 mcg/mL injection solution RxNorm: 478676 Milliliter 07/31/2015 No longer Active cyanocobalamin (vit B-12) 1,000 mcg/mL injection solution RxNorm: 627718 Milliliter 06/05/2015 No longer Active cyanocobalamin (vit B-12) 1,000 mcg/mL injection solution RxNorm: 517008 Milliliter 05/01/2015 No longer Active cyanocobalamin (vit B-12) 1,000 mcg/mL injection solution RxNorm: 746237 Milliliter 04/03/2015 No longer Active cyanocobalamin (vit B-12) 1,000 mcg/mL injection solution RxNorm: 130318 Milliliter 02/28/2015 No longer Active cyanocobalamin (vit B-12) 1,000 mcg/mL injection solution RxNorm: 928094 Milliliter 01/30/2015 No longer Active cyanocobalamin (vit B-12) 1,000 mcg/mL injection solution RxNorm: 817828 1Milliliter 01/02/2015 No longer Active cyanocobalamin (vit B-12) 1,000 mcg/mL injection solution RxNorm: 337200 1Milliliter 11/28/2014 No longer Active cyanocobalamin (vit B-12) 1,000 mcg/mL injection solution RxNorm: 448265 Milliliter 10/31/2014 No longer Active cyanocobalamin (vit B-12) 1,000 mcg/mL injection solution RxNorm: 599026 1Milliliterdaily 10/03/2014 No longer Active cyanocobalamin (vit B-12) 1,000 mcg/mL injection solution RxNorm: 182650 Milliliter 08/30/2014 No longer Active cyanocobalamin (vit B-12) 1,000 mcg/mL injection solution RxNorm: 280945 Milliliter 08/02/2014 No longer Active cyanocobalamin (vit B-12) 1,000 mcg/mL injection kit RxNorm: 125276 Milliliter 07/04/2014 No longer Active cyanocobalamin (vit B-12) 1,000 mcg/mL injection solution RxNorm: 519075 Milliliter 05/30/2014 No longer Active cyanocobalamin (vit B-12) 1,000 mcg/mL injection solution RxNorm: 680525 Milliliter 05/02/2014 No longer Active cyanocobalamin (vit B-12) 1,000 mcg/mL injection solution RxNorm: 421352 Milliliter 04/05/2014 No longer Active cyanocobalamin (vit B-12) 1,000 mcg/mL injection solution RxNorm: 938623 Milliliter 03/07/2014 No longer Active cyanocobalamin (vit B-12) 1,000 mcg/mL injection solution RxNorm: 959739 1Milliliter 02/01/2014 No longer Active cyanocobalamin (vit B-12) 1,000 mcg/mL injection solution RxNorm: 701425 1Milliliter 12/30/2013 No longer Active cyanocobalamin (vit B-12) 1,000 mcg/mL injection solution RxNorm: 446683 Milliliter 11/30/2013 No longer Active cyanocobalamin (vit B-12) 1,000 mcg/mL injection solution RxNorm: 409915 1Milliliter 11/02/2013 No longer Active Vitamin B-12 1,000 mcg/mL injection solution RxNorm: 108081 Milliliter 08/31/2013 No longer Active Vitamin B-12 1,000 mcg/mL injection solution RxNorm: 192192 1Milliliter 08/04/2013 No longer Active Vitamin B-12 1,000 mcg/mL injection solution RxNorm: 824918 Milliliter 07/06/2013 No longer Active cyanocobalamin (vit B-12) 1,000 mcg/mL injection solution RxNorm: 216525 Milliliter 05/31/2013 No longer Active cyanocobalamin (vit B-12) 1,000 mcg/mL injection kit RxNorm: 767132 Milliliter 05/04/2013 No longer Active cyanocobalamin (vitamin B-12) 1,000 mcg/mL Injection RxNorm: 115665 Milliliter 03/30/2013 No longer Active cyanocobalamin (vitamin B-12) 1,000 mcg/mL Injection RxNorm: 739473 Milliliter 02/02/2013 No longer Active cyanocobalamin (vitamin B-12) 1,000 mcg/mL Injection RxNorm: 415789 Milliliter 12/29/2012 No longer Active cyanocobalamin (vitamin B-12) 1,000 mcg/mL Injection RxNorm: 688326 Milliliter 12/01/2012 No longer Active Vitamin B-12 1,000 mcg tablet RxNorm: 441927 Tablet 11/03/2012 No longer Active Vitamin B-12 1,000 mcg/mL Injection RxNorm: 046506 1Milliliter 09/30/2012 No longer Active Vitamin B-12 1,000 mcg/mL Injection RxNorm: 479404 1Milliliter 09/08/2012 No longer Active cyanocobalamin (vitamin B-12) 1,000 mcg/mL Injection RxNorm: 095224 1Milliliter 08/25/2012 No longer Active cyanocobalamin (vitamin B-12) 1,000 mcg/mL Injection RxNorm: 072349 1Milliliter 08/11/2012 No longer Active cyanocobalamin (vitamin B-12) 1,000 mcg/mL Injection RxNorm: 713111 1Milliliter 07/21/2012 No longer Active Vitamin B-12 1,000 mcg/mL Injection RxNorm: 847143 Milliliter 07/07/2012 No longer Active cyanocobalamin (vitamin B-12) 1,000 mcg/mL Injection RxNorm: 781347 1Milliliter 06/25/2012 No longer Active Vitamin B-12 1,000 mcg/mL Injection RxNorm: 496538 1Milliliter 06/09/2012 No longer Active Vitamin B-12 1,000 mcg/mL Injection RxNorm: 004187 Milliliter 05/25/2012 No longer Active Vitamin B-12 1,000 mcg/mL Injection RxNorm: 341204 Milliliter 05/12/2012 No longer Active Vitamin B-12 1,000 mcg/mL Injection RxNorm: 445515 Milliliter 04/20/2012 No longer Active Vitamin B-12 1,000 mcg/mL Injection RxNorm: 278985 Milliliter 04/07/2012 No longer Active Vitamin B-12 1,000 mcg/mL Injection RxNorm: 974533 Milliliter 03/10/2012 No longer Active Vitamin B-12 1,000 mcg/mL Injection RxNorm: 338997 Milliliter 02/18/2012 No longer Active Vitamin B-12 1,000 mcg/mL Injection RxNorm: 389592 Milliliter 02/04/2012 No longer Active Vitamin B-12 1,000 mcg/mL Injection RxNorm: 359419 Milliliter 01/21/2012 No longer Active Vitamin B-12 1,000 mcg/mL Injection RxNorm: 007534 Milliliter 01/07/2012 No longer Active Vitamin B-12 1,000 mcg/mL Injection RxNorm: 054051 Milliliter 12/17/2011 No longer Active Immunizations Vaccine Codes Date Status Influenza CVX: 141 2018 completed Influenza CVX: 141 2017 completed Influenza CVX: 141 05/01/2016 completed Pneumococcal CVX: 33 11/21/2015 completed PPD Unknown 07/31/2015 completed Influenza CVX: 141 05/04/2013 completed PPD Unknown 05/03/2013 completed Pneumococcal CVX: 33 11/04/2012 completed Tetanus/Diptheria CVX: 28 11/04/2012 completed Assessments Condition Codes Effective Dates Vitamin B12 deficiency anemia due to 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 11/30/2018 Vitamin B12 deficiency anemia, unspecified ICD-10: D51.9 ICD-9: 281.1 11/02/2018 Other vitamin B12 deficiency anemias ICD-10: D51.8 ICD-9: 281.1 09/28/2018 Encounter for immunization ICD-10: Z23 ICD-9: V04.81 2018 Vitamin B deficiency, unspecified ICD-10: E53.9 ICD-9: 266.2 12/29/2017 Major depressive disorder, single episode, moderate ICD-10: F32.1 ICD-9: 296.22 11/05/2017 Generalized anxiety disorder ICD-10: F41.1 ICD-9: 300.00 11/05/2017 Other schizophrenia ICD-10: F20.89 ICD-9: 295.90 11/05/2017 Encounter for immunization ICD-10: Z23 ICD-9: V03.9 2017 Encounter for follow-up examination after completed treatment for conditions other than malignant neoplasm ICD-10: Z09 ICD-9: V67.9 12/18/2015 Cellulitis of right lower limb ICD-10: L03.115 ICD-9: 682.6 12/04/2015 Encounter for general adult medical examination without abnormal findings ICD-10: Z00.00 ICD-9: V70.0 10/11/2015 Vitamin B 12 deficiency ICD-9: 266.2 02/28/2015 Leg pain ICD-9: 729.5 01/16/2015 Schizophrenia ICD-9: 295.90 01/16/2015 Medication dose changed ICD-9: V58.69 01/16/2015 DEPRESSIVE DISORDER NEC ICD-9: 311 01/16/2015 Dementia ICD-9: 294.20 01/02/2015 Rash ICD-9: 782.1 08/02/2014 VACCIN FOR INFLUENZA ICD-9: V04.81 05/04/2013 SCHIZO NOS, CHRN ICD-9: 295.92 05/03/2013 ALTERED MENTAL STATUS ICD-9: 780.97 12/17/2011 Myalgia ICD-9: 729.1 12/17/2011 Hypokalemia ICD-9: 276.8 12/10/2011 Orthostatic hypotension ICD-9: 458.0 12/10/2011 Reason For Visit Reason For Visit Effective Dates Notes vaccination against influenza 2018 depression 11/05/2017 vaccination against influenza 2017 sores 12/18/2015 sores 12/04/2015 Annual Medicare Wellness Exam 10/11/2015 leg pain/sciatica 01/16/2015 right side skin lesion 08/02/2014 vaccination against influenza 05/04/2013 psychosis 03/02/2013 rash 09/30/2012 memory loss 07/07/2012 memory loss 01/07/2012 memory loss 12/17/2011 mental status change 12/10/2011 memory loss 11/26/2011 Results Observation Observation Code Item Item Code Result Date B12 [id number] B12 637.00 pg/ml 07/31/2015 FOLIC ACID 7505138 FOLIC ACID >24.0 NG/ML 08/25/2012 VIT B 12 4519733 VIT B 12 1591 PG/ML 08/25/2012 HOMOCYS 3494351 HOMOCYS 6.8 UMOL/L 08/25/2012 TSH 9697791 TSH 1.386 uIU/ML 07/07/2012 CBC 5112065 WBC 6.4 10e9/L 07/07/2012 CBC 6402159 RBC 4.92 10e12/L 07/07/2012 CBC 3452059 HGB 15.0 g/dL 07/07/2012 CBC 7803452 HCT DET 43.3 % 07/07/2012 CBC 1228577 MCV 88.0 fL 07/07/2012 CBC 0804079 MCH 30.5 pg 07/07/2012 CBC 1062819 MCHC 34.6 g/dL 07/07/2012 CBC 4775937 PLT 180 10e9/L 07/07/2012 CBC 9254818 MPV 10.0 fL 07/07/2012 CBC 5455314 KENRICK % 59.0 % 07/07/2012 CBC 3565738 LY % 24.1 % 07/07/2012 CBC 5818690 MON % 12.5 % 07/07/2012 CBC 0801522 EOS % 4.1 % 07/07/2012 CBC 3214572 BASO % 0.3 % 07/07/2012 CBC 5564939 RDW 13.4 % 07/07/2012 CBC 6987684 ABS KENRICK 3.78 10e9/L 07/07/2012 CBC 0782548 ABS LYMPH 1.54 10e9/L 07/07/2012 CBC 2530405 ABS MONO 0.80 10e9/L 07/07/2012 CBC 1282824 ABS EOS 0.26 10e9/L 07/07/2012 CBC 5066102 ABS BASO 0.02 10e9/L 07/07/2012 CBC 0213822 RDW-SD 42.9 fL 07/07/2012 CHEM 14 2656607 AST 29 U/L 07/07/2012 CHEM 14 8620879 ALT 29 U/L 07/07/2012 CHEM 14 6794328 BUN 9 MG/DL 07/07/2012 CHEM 14 9143405 ALBUMIN 4.1 GM/DL 07/07/2012 CHEM 14 3363778 CHLORIDE 103 MMOL/L 07/07/2012 CHEM 14 3224105 BILI TOT 0.3 MG/DL 07/07/2012 CHEM 14 4503134 ALK PHOS 88 U/L 07/07/2012 CHEM 14 7045603 SODIUM 141 MMOL/L 07/07/2012 CHEM 14 8659277 CREATININE 1.38 MG/DL 07/07/2012 CHEM 14 1472843 CALCIUM 9.3 MG/DL 07/07/2012 CHEM 14 3560133 POTASSIUM 3.7 MMOL/L 07/07/2012 CHEM 14 9621371 PROT TOT 6.4 GM/DL 07/07/2012 CHEM 14 6880959 GLUCOSE 76 MG/DL 07/07/2012 CHEM 14 8521115 BICARB 28 MMOL/L 07/07/2012 CHEM 14 9626381 ANION GAP 10 MMOL/L 07/07/2012 GFR CALC 9857901 GFR AA >60 ML/MIN 07/07/2012 GFR CALC 7012068 GFR NON-AA 52.0L ML/MIN 07/07/2012 B12 FOLAT 6910390 VIT B 12 211 PG/ML 12/10/2011 B12 FOLAT 2245075 FOLIC ACID 3.9 NG/ML 12/10/2011 GFR CALC 8180019 GFR AA >60 ML/MIN 12/10/2011 GFR CALC 6854780 GFR NON-AA >60 ML/MIN 12/10/2011 CPK 5184601 CPK 135 U/L 12/10/2011 CHEM 14 2928904 AST 62 U/L 12/10/2011 CHEM 14 9631999 ALT 114 U/L 12/10/2011 CHEM 14 5214320 BUN 10 MG/DL 12/10/2011 CHEM 14 5061937 ALBUMIN 3.7 GM/DL 12/10/2011 CHEM 14 5976805 CHLORIDE 103 MMOL/L 12/10/2011 CHEM 14 5626213 BILI TOT 0.5 MG/DL 12/10/2011 CHEM 14 1144567 ALK PHOS 129 U/L 12/10/2011 CHEM 14 2072794 SODIUM 140 MMOL/L 12/10/2011 CHEM 14 2688811 CREATININE 1.17 MG/DL 12/10/2011 CHEM 14 0393090 CALCIUM 8.8 MG/DL 12/10/2011 CHEM 14 8141849 POTASSIUM 3.4 MMOL/L 12/10/2011 CHEM 14 5801245 PROT TOT 5.8 GM/DL 12/10/2011 CHEM 14 0654938 GLUCOSE 84 MG/DL 12/10/2011 CHEM 14 6265442 BICARB 26 MMOL/L 12/10/2011 CHEM 14 8305187 ANION GAP 11 MMOL/L 12/10/2011 URINALYSIS NONAUTO W/O SCOPE 86181 Specific [place] 1.005 DateTime(Free Text in Aprima) URINALYSIS NONAUTO W/O SCOPE 29400 PH 6 DateTime(Free Text in Aprima) URINALYSIS NONAUTO W/O SCOPE 04394 GLUCOSE neg DateTime(Free Text in Aprima) URINALYSIS NONAUTO W/O SCOPE 09291 Protein neg DateTime(Free Text in Aprima) URINALYSIS NONAUTO W/O SCOPE 24658 Blood neg DateTime(Free Text in Aprima) URINALYSIS NONAUTO W/O SCOPE 33743 Bilirubin neg DateTime(Free Text in Aprima) URINALYSIS NONAUTO W/O SCOPE 89789 Ketones neg DateTime(Free Text in Aprima) URINALYSIS NONAUTO W/O SCOPE 32843 Urobilinogen neg DateTime(Free Text in Aprima) URINALYSIS NONAUTO W/O SCOPE 93181 Nitrite neg DateTime(Free Text in Aprima) URINALYSIS NONAUTO W/O SCOPE 37517 Leukocytes neg DateTime(Free Text in Aprima) URINALYSIS NONAUTO W/O SCOPE 80821 Specific [place] 1.010 DateTime(Free Text in Aprima) URINALYSIS NONAUTO W/O SCOPE 75752 PH 6.5 DateTime(Free Text in Aprima) URINALYSIS NONAUTO W/O SCOPE 16545 GLUCOSE neg DateTime(Free Text in Aprima) URINALYSIS NONAUTO W/O SCOPE 46452 Protein neg DateTime(Free Text in Aprima) URINALYSIS NONAUTO W/O SCOPE 73679 Blood neg DateTime(Free Text in Aprima) URINALYSIS NONAUTO W/O SCOPE 91262 Bilirubin neg DateTime(Free Text in Aprima) URINALYSIS NONAUTO W/O SCOPE 47853 Ketones neg DateTime(Free Text in Aprima) URINALYSIS NONAUTO W/O SCOPE 95467 Urobilinogen neg DateTime(Free Text in Aprima) URINALYSIS NONAUTO W/O SCOPE 10697 Nitrite neg DateTime(Free Text in Aprima) URINALYSIS NONAUTO W/O SCOPE 08749 Leukocytes neg DateTime(Free Text in Aprima) Review of Systems System Result Effective Dates Constitutional No recent illness 11/05/2017 Constitutional No chills 11/05/2017 Constitutional No diaphoresis 11/05/2017 Constitutional No fever 11/05/2017 Eyes No eye discharge 11/05/2017 Eyes No eye erythema 11/05/2017 Cardiovascular No chest pain/pressure 11/05/2017 Respiratory No productive sputum 11/05/2017 Respiratory No chest congestion 11/05/2017 Gastrointestinal No abdominal pain 11/05/2017 Gastrointestinal No constipation 11/05/2017 Gastrointestinal No diarrhea 11/05/2017 Gastrointestinal No nausea 11/05/2017 Gastrointestinal No vomiting 11/05/2017 Dermatologic No rash 11/05/2017 Neurologic ataxia 11/05/2017 Neurologic No dizziness 11/05/2017 Neurologic gait abnormality 11/05/2017 Neurologic No headache 11/05/2017 Psychiatric anxiety 11/05/2017 Psychiatric depression 11/05/2017 Psychiatric No suicidality 11/05/2017 Ears/Nose/Throat/Neck No nasal allergies 11/05/2017 Neurologic No alteration of consciousness 11/05/2017 Constitutional No fever 12/18/2015 Eyes No eye discharge 12/18/2015 Eyes No eye erythema 12/18/2015 Respiratory No cough 12/18/2015 Dermatologic No scar 12/18/2015 Neurologic No alteration of consciousness 12/18/2015 Neurologic gait abnormality 12/18/2015 Neurologic memory loss 12/18/2015 Neurologic No mental status change 12/18/2015 Ears/Nose/Throat/Neck No nasal allergies 12/18/2015 Ears/Nose/Throat/Neck No nasal discharge 12/18/2015 Dermatologic No sores 12/18/2015 Eyes No eye discharge 12/04/2015 Eyes No eye erythema 12/04/2015 Dermatologic No scar 12/04/2015 Neurologic gait abnormality 12/04/2015 Neurologic No mental status change 12/04/2015 Constitutional No fever 12/04/2015 Ears/Nose/Throat/Neck No hoarseness 12/04/2015 Respiratory No cough 12/04/2015 Musculoskeletal arthralgia(s) 12/04/2015 Dermatologic sores 12/04/2015 Neurologic No alteration of consciousness 12/04/2015 Neurologic memory loss 12/04/2015 Constitutional No recent illness 10/11/2015 Constitutional No night sweats 10/11/2015 Constitutional No chills 10/11/2015 Constitutional No diaphoresis 10/11/2015 Constitutional No fever 10/11/2015 Eyes No eye discharge 10/11/2015 Eyes No eye erythema 10/11/2015 Ears/Nose/Throat/Neck No dizziness 10/11/2015 Ears/Nose/Throat/Neck No headache 10/11/2015 Ears/Nose/Throat/Neck No nasal allergies 10/11/2015 Ears/Nose/Throat/Neck No sore throat 10/11/2015 Cardiovascular No chest pain/pressure 10/11/2015 Respiratory No productive sputum 10/11/2015 Respiratory No chest congestion 10/11/2015 Gastrointestinal No abdominal pain 10/11/2015 Gastrointestinal No constipation 10/11/2015 Gastrointestinal No diarrhea 10/11/2015 Gastrointestinal No nausea 10/11/2015 Gastrointestinal No vomiting 10/11/2015 Genitourinary/Nephrology No dysuria 10/11/2015 Dermatologic No rash 10/11/2015 Dermatologic No scar 10/11/2015 Neurologic No dizziness 10/11/2015 Neurologic gait abnormality 10/11/2015 Neurologic No headache 10/11/2015 Psychiatric anxiety 10/11/2015 Psychiatric depression 10/11/2015 Psychiatric No suicidality 10/11/2015 Ears/Nose/Throat/Neck No nasal discharge 10/11/2015 Ears/Nose/Throat/Neck No otalgia 10/11/2015 Cardiovascular No dyspnea 10/11/2015 Cardiovascular No edema 10/11/2015 Gastrointestinal No gastroesophageal reflux 10/11/2015 Musculoskeletal arthralgia(s) 10/11/2015 Neurologic No mental status change 10/11/2015 Constitutional No recent illness 01/16/2015 Constitutional No night sweats 01/16/2015 Constitutional No chills 01/16/2015 Constitutional No diaphoresis 01/16/2015 Constitutional No fever 01/16/2015 Eyes No eye discharge 01/16/2015 Eyes No eye erythema 01/16/2015 Ears/Nose/Throat/Neck No dizziness 01/16/2015 Ears/Nose/Throat/Neck No headache 01/16/2015 Ears/Nose/Throat/Neck No nasal allergies 01/16/2015 Ears/Nose/Throat/Neck No sore throat 01/16/2015 Cardiovascular No chest pain/pressure 01/16/2015 Respiratory No productive sputum 01/16/2015 Respiratory No chest congestion 01/16/2015 Gastrointestinal No abdominal pain 01/16/2015 Gastrointestinal No constipation 01/16/2015 Gastrointestinal No diarrhea 01/16/2015 Gastrointestinal No nausea 01/16/2015 Gastrointestinal No vomiting 01/16/2015 Genitourinary/Nephrology No dysuria 01/16/2015 Neurologic alteration of consciousness 01/16/2015 Neurologic ataxia 01/16/2015 Neurologic No dizziness 01/16/2015 Neurologic gait abnormality 01/16/2015 Neurologic No headache 01/16/2015 Psychiatric No suicidality 01/16/2015 Musculoskeletal stiffness 01/16/2015 Musculoskeletal arthralgia(s) 01/16/2015 Musculoskeletal muscle weakness 01/16/2015 Musculoskeletal myalgias 01/16/2015 Dermatologic No rash 01/16/2015 Dermatologic No scar 01/16/2015 Psychiatric depression 01/16/2015 Psychiatric anxiety 01/16/2015 Constitutional No night sweats 08/02/2014 Constitutional No anorexia 08/02/2014 Constitutional No recent illness 08/02/2014 Constitutional No chills 08/02/2014 Constitutional No diaphoresis 08/02/2014 Constitutional No fatigue 08/02/2014 Constitutional No fever 08/02/2014 Constitutional No insomnia 08/02/2014 Constitutional No malaise 08/02/2014 Constitutional No weight loss 08/02/2014 Constitutional No weight gain 08/02/2014 Ears/Nose/Throat/Neck No nasal discharge 08/02/2014 Respiratory No cough 08/02/2014 Gastrointestinal No vomiting 08/02/2014 Gastrointestinal No nausea 08/02/2014 Neurologic ataxia 03/02/2013 Neurologic No dizziness 03/02/2013 Neurologic gait abnormality 03/02/2013 Neurologic No headache 03/02/2013 Psychiatric No suicidality 03/02/2013 Constitutional No recent illness 03/02/2013 Constitutional No night sweats 03/02/2013 Constitutional No chills 03/02/2013 Constitutional No diaphoresis 03/02/2013 Constitutional No fever 03/02/2013 Eyes No eye discharge 03/02/2013 Eyes No eye erythema 03/02/2013 Ears/Nose/Throat/Neck No dizziness 03/02/2013 Ears/Nose/Throat/Neck No headache 03/02/2013 Ears/Nose/Throat/Neck No nasal allergies 03/02/2013 Ears/Nose/Throat/Neck No sore throat 03/02/2013 Cardiovascular No chest pain/pressure 03/02/2013 Respiratory No productive sputum 03/02/2013 Respiratory No chest congestion 03/02/2013 Respiratory cough 03/02/2013 Gastrointestinal No abdominal pain 03/02/2013 Gastrointestinal No constipation 03/02/2013 Gastrointestinal No diarrhea 03/02/2013 Gastrointestinal No nausea 03/02/2013 Gastrointestinal No vomiting 03/02/2013 Genitourinary/Nephrology No dysuria 03/02/2013 Neurologic alteration of consciousness 03/02/2013 Constitutional No recent illness 09/30/2012 Constitutional No anorexia 09/30/2012 Constitutional No night sweats 09/30/2012 Constitutional No chills 09/30/2012 Constitutional No diaphoresis 09/30/2012 Constitutional No fatigue 09/30/2012 Constitutional No fever 09/30/2012 Constitutional No insomnia 09/30/2012 Constitutional No malaise 09/30/2012 Constitutional No recent illness 07/07/2012 Constitutional No night sweats 07/07/2012 Constitutional No chills 07/07/2012 Constitutional No diaphoresis 07/07/2012 Constitutional No fever 07/07/2012 Eyes No eye discharge 07/07/2012 Eyes No eye erythema 07/07/2012 Ears/Nose/Throat/Neck No dizziness 07/07/2012 Ears/Nose/Throat/Neck No headache 07/07/2012 Ears/Nose/Throat/Neck No nasal allergies 07/07/2012 Ears/Nose/Throat/Neck No sore throat 07/07/2012 Cardiovascular No chest pain/pressure 07/07/2012 Respiratory No productive sputum 07/07/2012 Respiratory No chest congestion 07/07/2012 Respiratory cough 07/07/2012 Gastrointestinal No abdominal pain 07/07/2012 Gastrointestinal No constipation 07/07/2012 Gastrointestinal No diarrhea 07/07/2012 Gastrointestinal No nausea 07/07/2012 Gastrointestinal No vomiting 07/07/2012 Genitourinary/Nephrology No dysuria 07/07/2012 Neurologic alteration of consciousness 07/07/2012 Neurologic ataxia 07/07/2012 Neurologic No dizziness 07/07/2012 Neurologic gait abnormality 07/07/2012 Neurologic No headache 07/07/2012 Psychiatric No suicidality 07/07/2012 Constitutional No recent illness 01/07/2012 Constitutional No night sweats 01/07/2012 Constitutional No chills 01/07/2012 Constitutional No diaphoresis 01/07/2012 Constitutional No fever 01/07/2012 Eyes No eye discharge 01/07/2012 Eyes No eye erythema 01/07/2012 Ears/Nose/Throat/Neck No dizziness 01/07/2012 Ears/Nose/Throat/Neck No headache 01/07/2012 Ears/Nose/Throat/Neck No nasal allergies 01/07/2012 Ears/Nose/Throat/Neck No sore throat 01/07/2012 Cardiovascular No chest pain/pressure 01/07/2012 Respiratory No productive sputum 01/07/2012 Respiratory No chest congestion 01/07/2012 Respiratory cough 01/07/2012 Gastrointestinal No abdominal pain 01/07/2012 Gastrointestinal No constipation 01/07/2012 Gastrointestinal No diarrhea 01/07/2012 Gastrointestinal No nausea 01/07/2012 Gastrointestinal No vomiting 01/07/2012 Genitourinary/Nephrology No dysuria 01/07/2012 Neurologic alteration of consciousness 01/07/2012 Neurologic ataxia 01/07/2012 Neurologic No dizziness 01/07/2012 Neurologic gait abnormality 01/07/2012 Neurologic No headache 01/07/2012 Psychiatric No suicidality 01/07/2012 Constitutional No recent illness 12/17/2011 Constitutional No night sweats 12/17/2011 Constitutional No chills 12/17/2011 Constitutional No diaphoresis 12/17/2011 Constitutional No fever 12/17/2011 Eyes No eye discharge 12/17/2011 Eyes No eye erythema 12/17/2011 Ears/Nose/Throat/Neck No dizziness 12/17/2011 Ears/Nose/Throat/Neck No headache 12/17/2011 Ears/Nose/Throat/Neck No nasal allergies 12/17/2011 Ears/Nose/Throat/Neck No sore throat 12/17/2011 Cardiovascular No chest pain/pressure 12/17/2011 Respiratory No productive sputum 12/17/2011 Respiratory No chest congestion 12/17/2011 Respiratory cough 12/17/2011 Gastrointestinal No abdominal pain 12/17/2011 Gastrointestinal No constipation 12/17/2011 Gastrointestinal No diarrhea 12/17/2011 Gastrointestinal No nausea 12/17/2011 Gastrointestinal No vomiting 12/17/2011 Genitourinary/Nephrology No dysuria 12/17/2011 Neurologic alteration of consciousness 12/17/2011 Neurologic ataxia 12/17/2011 Neurologic No dizziness 12/17/2011 Neurologic gait abnormality 12/17/2011 Neurologic No headache 12/17/2011 Psychiatric No suicidality 12/17/2011 Constitutional No recent illness 12/10/2011 Constitutional No night sweats 12/10/2011 Constitutional No chills 12/10/2011 Constitutional No diaphoresis 12/10/2011 Constitutional No fever 12/10/2011 Eyes No eye discharge 12/10/2011 Eyes No eye erythema 12/10/2011 Gastrointestinal No vomiting 12/10/2011 Gastrointestinal No nausea 12/10/2011 Gastrointestinal No abdominal pain 12/10/2011 Gastrointestinal No constipation 12/10/2011 Gastrointestinal No diarrhea 12/10/2011 Genitourinary/Nephrology No dysuria 12/10/2011 Respiratory No productive sputum 12/10/2011 Respiratory cough 12/10/2011 Respiratory No chest congestion 12/10/2011 Cardiovascular No chest pain/pressure 12/10/2011 Ears/Nose/Throat/Neck No dizziness 12/10/2011 Ears/Nose/Throat/Neck No sore throat 12/10/2011 Ears/Nose/Throat/Neck No nasal allergies 12/10/2011 Ears/Nose/Throat/Neck No headache 12/10/2011 Musculoskeletal No joint complaint 12/10/2011 Neurologic ataxia 12/10/2011 Neurologic No dizziness 12/10/2011 Neurologic gait abnormality 12/10/2011 Neurologic No headache 12/10/2011 Neurologic alteration of consciousness 12/10/2011 Psychiatric No suicidality 12/10/2011 Constitutional No recent illness 11/26/2011 Constitutional No anorexia 11/26/2011 Constitutional No night sweats 11/26/2011 Constitutional No fatigue 11/26/2011 Constitutional No fever 11/26/2011 Constitutional insomnia 11/26/2011 Eyes No blindness 11/26/2011 Eyes No vision change 11/26/2011 Ears/Nose/Throat/Neck No dizziness 11/26/2011 Ears/Nose/Throat/Neck No dysphagia 11/26/2011 Ears/Nose/Throat/Neck No headache 11/26/2011 Ears/Nose/Throat/Neck No hearing loss 11/26/2011 Cardiovascular No chest pain/pressure 11/26/2011 Cardiovascular No dyspnea 11/26/2011 Cardiovascular No edema 11/26/2011 Respiratory No cough 11/26/2011 Respiratory cigarette smoking 11/26/2011 Respiratory No chest congestion 11/26/2011 Gastrointestinal No abdominal pain 11/26/2011 Gastrointestinal No diarrhea 11/26/2011 Gastrointestinal No constipation 11/26/2011 Gastrointestinal No dyspepsia 11/26/2011 Genitourinary/Nephrology No dysuria 11/26/2011 Genitourinary/Nephrology No hematuria 11/26/2011 Genitourinary/Nephrology No nocturia 11/26/2011 Musculoskeletal No stiffness 11/26/2011 Musculoskeletal No arthralgia(s) 11/26/2011 Psychiatric anxiety 11/26/2011 Psychiatric disturbances of emotion 11/26/2011 Psychiatric disturbances of thinking 11/26/2011 Psychiatric psychosis 11/26/2011 Physical Exam Exam Name System Name Item Name Status Result Effective Dates Notes Full Exam - General 1994 Constitutional general appearance Overall: well developed 11/05/2017 None Full Exam - General 1994 Constitutional general appearance Overall: in no acute distress 11/05/2017 None Full Exam - General 1994 Constitutional general appearance Overall: well nourished 11/05/2017 None Full Exam - General 1994 Eyes conjunctiva/eyelids Overall: conjunctiva clear 11/05/2017 None Full Exam - General 1994 Eyes conjunctiva/eyelids Overall: cornea clear 11/05/2017 None Full Exam - General 1994 Eyes conjunctiva/eyelids Overall: eyelids normal 11/05/2017 None Full Exam - General 1994 Eyes pupils and irises Overall: pupils equal, round, reactive to light and accomodation 11/05/2017 None Full Exam - General 1994 Ears/Nose/Throat otoscopic exam Overall: external auditory canals clear 11/05/2017 None Full Exam - General 1994 Ears/Nose/Throat otoscopic exam Overall: tympanic membranes clear 11/05/2017 None Full Exam - General 1994 Ears/Nose/Throat oral cavity/pharynx/larynx Overall: oral mucosa clear 11/05/2017 None Full Exam - General 1994 Ears/Nose/Throat oral cavity/pharynx/larynx Overall: oropharyngeal mucosa clear 11/05/2017 None Full Exam - General 1994 Respiratory auscultation Overall: breath sounds clear bilaterally 11/05/2017 None Full Exam - General 1994 Respiratory respiratory effort/rhythm Overall: no retractions 11/05/2017 None Full Exam - General 1994 Respiratory respiratory effort/rhythm Overall: normal rate 11/05/2017 None Full Exam - General 1994 Cardiovascular extremities Overall: no clubbing 11/05/2017 None Full Exam - General 1994 Cardiovascular extremities Edema present: pitting 11/05/2017 None Full Exam - General 1994 Cardiovascular extremities Edema present: severity 1+ - 4+: _ 11/05/2017 None Full Exam - General 1994 Cardiovascular extremities Edema present: to knees 11/05/2017 None Full Exam - General 1994 Cardiovascular auscultation of heart Overall: regular rate 11/05/2017 None Full Exam - General 1994 Cardiovascular auscultation of heart Systolic murmur grade: II/ 11/05/2017 None Full Exam - General 1994 Abdomen abdominal exam Overall: no tenderness 11/05/2017 None Full Exam - General 1994 Abdomen abdominal exam Overall: normal bowel sounds 11/05/2017 None Full Exam - General 1994 Musculoskeletal spine, ribs and pelvis Posture: lordosis 11/05/2017 None Full Exam - General 1994 Musculoskeletal head and neck Overall: head atraumatic 11/05/2017 None Full Exam - General 1994 Neurologic gait Overall: no ataxia, no unsteadiness 11/05/2017 None Full Exam - General 1994 Neurologic cranial nerves Overall: crainial nerves 2 - 12 grossly intact 11/05/2017 None Full Exam - General 1994 Psychiatric orientation/consciousness Overall: oriented to person, place and time 11/05/2017 None Full Exam - General 1994 Psychiatric mood and affect Mood: happy 11/05/2017 None Full Exam - General 1994 Psychiatric mood and affect Affect: mood congruent 11/05/2017 None Full Exam - General 1994 Psychiatric cognition/memory Remote memory: poor recollection of past events 11/05/2017 None Full Exam - General 1994 Psychiatric cognition/memory Recent past memory: unable to recall recent news events 11/05/2017 None Full Exam - General 1994 Psychiatric cognition/memory Immediate memory: unable to repeat 6 digits 11/05/2017 None Full Exam - General 1994 Psychiatric cognition/memory Immediate memory: unable to recall three words at five minutes 11/05/2017 [facility] exam points Full Exam - General 1994 Ears/Nose/Throat lips/teeth/gingiva Overall: benign lips 11/05/2017 None Full Exam - General 1994 Constitutional general appearance Overall: well developed 12/18/2015 None Full Exam - General 1994 Constitutional general appearance Overall: in no acute distress 12/18/2015 None Full Exam - General 1994 Constitutional general appearance Overall: well nourished 12/18/2015 None Full Exam - General 1994 Eyes conjunctiva/eyelids Overall: conjunctiva clear 12/18/2015 None Full Exam - General 1994 Eyes conjunctiva/eyelids Overall: cornea clear 12/18/2015 None Full Exam - General 1994 Eyes conjunctiva/eyelids Overall: eyelids normal 12/18/2015 None Full Exam - General 1994 Ears/Nose/Throat lips/teeth/gingiva Overall: benign lips 12/18/2015 None Full Exam - General 1994 Respiratory respiratory effort/rhythm Overall: no retractions 12/18/2015 None Full Exam - General 1994 Respiratory respiratory effort/rhythm Overall: normal rate 12/18/2015 None Full Exam - General 1994 Musculoskeletal spine, ribs and pelvis Posture: lordosis 12/18/2015 None Full Exam - General 1994 Integument inspection of skin Location: right leg 12/18/2015 inner thigh - well healed Full Exam - General 1994 Neurologic cranial nerves Overall: crainial nerves 2 - 12 grossly intact 12/18/2015 None Full Exam - General 1994 Psychiatric orientation/consciousness Overall: oriented to person, place and time 12/18/2015 None Full Exam - General 1994 Psychiatric mood and affect Mood: flat 12/18/2015 None Full Exam - General 1994 Psychiatric mood and affect Affect: mood congruent 12/18/2015 None Full Exam - General 1994 Psychiatric appearance Grooming: well-groomed 12/18/2015 None Full Exam - General 1994 Constitutional general appearance Overall: well developed 12/04/2015 None Full Exam - General 1994 Constitutional general appearance Overall: in no acute distress 12/04/2015 None Full Exam - General 1994 Constitutional general appearance Overall: well nourished 12/04/2015 None Full Exam - General 1994 Eyes conjunctiva/eyelids Overall: conjunctiva clear 12/04/2015 None Full Exam - General 1994 Eyes conjunctiva/eyelids Overall: cornea clear 12/04/2015 None Full Exam - General 1994 Eyes conjunctiva/eyelids Overall: eyelids normal 12/04/2015 None Full Exam - General 1994 Respiratory respiratory effort/rhythm Overall: no retractions 12/04/2015 None Full Exam - General 1994 Respiratory respiratory effort/rhythm Overall: normal rate 12/04/2015 None Full Exam - General 1994 Musculoskeletal spine, ribs and pelvis Posture: lordosis 12/04/2015 None Full Exam - General 1994 Musculoskeletal head and neck Overall: head atraumatic 12/04/2015 None Full Exam - General 1994 Neurologic cranial nerves Overall: crainial nerves 2 - 12 grossly intact 12/04/2015 None Full Exam - General 1994 Psychiatric orientation/consciousness Overall: oriented to person, place and time 12/04/2015 None Full Exam - General 1994 Psychiatric mood and affect Mood: flat 12/04/2015 None Full Exam - General 1994 Psychiatric mood and affect Affect: mood congruent 12/04/2015 None Full Exam - General 1994 Psychiatric appearance Grooming: well-groomed 12/04/2015 None Full Exam - General 1994 Ears/Nose/Throat lips/teeth/gingiva Overall: benign lips 12/04/2015 None Full Exam - General 1994 Integument inspection of skin Location: right leg 12/04/2015 inner thigh Full Exam - General 1994 Integument inspection of skin Pigmentation: erythematous 12/04/2015 None Full Exam - General 1994 Integument inspection of skin Dermatitis: pustule 12/04/2015 approximately dime sized lesion, cap removed and minimal purulent drainage extruded - culture sent Full Exam - General 1994 Constitutional general appearance Overall: well developed 10/11/2015 None Full Exam - General 1994 Constitutional general appearance Overall: in no acute distress 10/11/2015 None Full Exam - General 1994 Constitutional general appearance Overall: well nourished 10/11/2015 None Full Exam - General 1994 Eyes conjunctiva/eyelids Overall: conjunctiva clear 10/11/2015 None Full Exam - General 1994 Eyes conjunctiva/eyelids Overall: cornea clear 10/11/2015 None Full Exam - General 1994 Eyes conjunctiva/eyelids Overall: eyelids normal 10/11/2015 None Full Exam - General 1994 Eyes pupils and irises Overall: pupils equal, round, reactive to light and accomodation 10/11/2015 None Full Exam - General 1994 Ears/Nose/Throat otoscopic exam Overall: external auditory canals clear 10/11/2015 None Full Exam - General 1994 Ears/Nose/Throat otoscopic exam Overall: tympanic membranes clear 10/11/2015 None Full Exam - General 1994 Ears/Nose/Throat oral cavity/pharynx/larynx Overall: oral mucosa clear 10/11/2015 None Full Exam - General 1994 Ears/Nose/Throat oral cavity/pharynx/larynx Overall: oropharyngeal mucosa clear 10/11/2015 None Full Exam - General 1994 Ears/Nose/Throat oral cavity/pharynx/larynx Overall: no masses 10/11/2015 None Full Exam - General 1994 Respiratory auscultation Overall: breath sounds clear bilaterally 10/11/2015 None Full Exam - General 1994 Respiratory respiratory effort/rhythm Overall: no retractions 10/11/2015 None Full Exam - General 1994 Respiratory respiratory effort/rhythm Overall: normal rate 10/11/2015 None Full Exam - General 1994 Cardiovascular extremities Overall: no clubbing 10/11/2015 None Full Exam - General 1994 Cardiovascular auscultation of heart Overall: regular rate 10/11/2015 None Full Exam - General 1994 Cardiovascular auscultation of heart Systolic murmur grade: II/ 10/11/2015 None Full Exam - General 1994 Abdomen abdominal exam Overall: no tenderness 10/11/2015 None Full Exam - General 1994 Abdomen abdominal exam Overall: normal bowel sounds 10/11/2015 None Full Exam - General 1994 Musculoskeletal spine, ribs and pelvis Posture: lordosis 10/11/2015 None Full Exam - General 1994 Musculoskeletal head and neck Overall: head atraumatic 10/11/2015 None Full Exam - General 1994 Musculoskeletal head and neck Overall: cervical spine benign 10/11/2015 None Full Exam - General 1994 Neurologic gait Overall: no ataxia, no unsteadiness 10/11/2015 None Full Exam - General 1994 Neurologic cranial nerves Overall: crainial nerves 2 - 12 grossly intact 10/11/2015 None Full Exam - General 1994 Psychiatric orientation/consciousness Overall: oriented to person, place and time 10/11/2015 None Full Exam - General 1994 Psychiatric mood and affect Affect: mood congruent 10/11/2015 None Full Exam - General 1994 Neurologic deep tendon reflexes Overall: deep tendon reflexes intact 10/11/2015 None Full Exam - General 1994 Psychiatric mood and affect Mood: flat 10/11/2015 None Full Exam - General 1994 Psychiatric appearance Grooming: well-groomed 10/11/2015 None Full Exam - General 1994 Constitutional general appearance Overall: well developed 01/16/2015 None Full Exam - General 1994 Constitutional general appearance Overall: in no acute distress 01/16/2015 None Full Exam - General 1994 Constitutional general appearance Overall: well nourished 01/16/2015 None Full Exam - General 1994 Eyes conjunctiva/eyelids Overall: conjunctiva clear 01/16/2015 None Full Exam - General 1994 Eyes conjunctiva/eyelids Overall: cornea clear 01/16/2015 None Full Exam - General 1994 Eyes conjunctiva/eyelids Overall: eyelids normal 01/16/2015 None Full Exam - General 1994 Eyes pupils and irises Overall: pupils equal, round, reactive to light and accomodation 01/16/2015 None Full Exam - General 1994 Ears/Nose/Throat otoscopic exam Overall: external auditory canals clear 01/16/2015 None Full Exam - General 1994 Ears/Nose/Throat otoscopic exam Overall: tympanic membranes clear 01/16/2015 None Full Exam - General 1994 Ears/Nose/Throat oral cavity/pharynx/larynx Overall: oral mucosa clear 01/16/2015 None Full Exam - General 1994 Ears/Nose/Throat oral cavity/pharynx/larynx Overall: oropharyngeal mucosa clear 01/16/2015 None Full Exam - General 1994 Ears/Nose/Throat oral cavity/pharynx/larynx Overall: no masses 01/16/2015 None Full Exam - General 1994 Respiratory auscultation Overall: breath sounds clear bilaterally 01/16/2015 None Full Exam - General 1994 Respiratory respiratory effort/rhythm Overall: no retractions 01/16/2015 None Full Exam - General 1994 Respiratory respiratory effort/rhythm Overall: normal rate 01/16/2015 None Full Exam - General 1994 Cardiovascular extremities Overall: no clubbing 01/16/2015 None Full Exam - General 1994 Cardiovascular extremities Edema present: pitting 01/16/2015 None Full Exam - General 1994 Cardiovascular extremities Edema present: severity 1+ - 4+: _ 01/16/2015 None Full Exam - General 1994 Cardiovascular extremities Edema present: to knees 01/16/2015 None Full Exam - General 1994 Cardiovascular auscultation of heart Overall: regular rate 01/16/2015 None Full Exam - General 1994 Cardiovascular auscultation of heart Systolic murmur grade: II/ 01/16/2015 None Full Exam - General 1994 Abdomen abdominal exam Overall: no tenderness 01/16/2015 None Full Exam - General 1994 Abdomen abdominal exam Overall: normal bowel sounds 01/16/2015 None Full Exam - General 1994 Abdomen liver and spleen exam Overall: no hepatosplenomegaly 01/16/2015 None Full Exam - General 1994 Abdomen liver and spleen exam Overall: no stigmata of chronic liver disease 01/16/2015 None Full Exam - General 1994 Musculoskeletal spine, ribs and pelvis Posture: lordosis 01/16/2015 None Full Exam - General 1994 Musculoskeletal head and neck Overall: head atraumatic 01/16/2015 None Full Exam - General 1994 Musculoskeletal head and neck Overall: cervical spine benign 01/16/2015 None Full Exam - General 1994 Neurologic deep tendon reflexes Overall: deep tendon reflexes intact 01/16/2015 None Full Exam - General 1994 Neurologic gait Overall: no ataxia, no unsteadiness 01/16/2015 None Full Exam - General 1994 Neurologic cranial nerves Overall: crainial nerves 2 - 12 grossly intact 01/16/2015 None Full Exam - General 1994 Psychiatric orientation/consciousness Overall: oriented to person, place and time 01/16/2015 None Full Exam - General 1994 Psychiatric mood and affect Mood: happy 01/16/2015 None Full Exam - General 1994 Psychiatric mood and affect Affect: mood congruent 01/16/2015 None Full Exam - General 1994 Psychiatric cognition/memory Remote memory: poor recollection of past events 01/16/2015 None Full Exam - General 1994 Psychiatric cognition/memory Recent past memory: unable to recall recent news events 01/16/2015 None Full Exam - General 1994 Psychiatric cognition/memory Immediate memory: unable to repeat 6 digits 01/16/2015 None Full Exam - General 1994 Psychiatric cognition/memory Immediate memory: unable to recall three words at five minutes 01/16/2015 [facility] exam points Full Exam - General 1995 Constitutional general appearance Overall: well developed 08/02/2014 None Full Exam - General 1994 Constitutional general appearance Overall: in no acute distress 08/02/2014 None Full Exam - General 1994 Constitutional general appearance Overall: well nourished 08/02/2014 None Full Exam - General 1994 Respiratory auscultation Overall: breath sounds clear bilaterally 08/02/2014 None Full Exam - General 1994 Cardiovascular auscultation of heart Overall: regular rate 08/02/2014 None Full Exam - General 1994 Cardiovascular auscultation of heart Systolic murmur grade: II/ 08/02/2014 None Full Exam - General 1994 Psychiatric orientation/consciousness Overall: oriented to person, place and time 08/02/2014 None Full Exam - General 1994 Integument inspection of skin Rash/Lesions: patch 08/02/2014 dry erythematous patch middle forehead Full Exam - General 1995 Ears/Nose/Throat otoscopic exam Overall: external auditory canals clear 03/02/2013 None Full Exam - General 1995 Ears/Nose/Throat otoscopic exam Overall: tympanic membranes clear 03/02/2013 None Full Exam - General 1995 Ears/Nose/Throat oral cavity/pharynx/larynx Overall: oral mucosa clear 03/02/2013 None Full Exam - General 1995 Ears/Nose/Throat oral cavity/pharynx/larynx Overall: oropharyngeal mucosa clear 03/02/2013 None Full Exam - General 1995 Ears/Nose/Throat oral cavity/pharynx/larynx Overall: no masses 03/02/2013 None Full Exam - General 1994 Respiratory auscultation Overall: breath sounds clear bilaterally 03/02/2013 None Full Exam - General 1994 Respiratory respiratory effort/rhythm Overall: no retractions 03/02/2013 None Full Exam - General 1994 Respiratory respiratory effort/rhythm Overall: normal rate 03/02/2013 None Full Exam - General 1994 Cardiovascular extremities Overall: no clubbing 03/02/2013 None Full Exam - General 1994 Cardiovascular extremities Edema present: pitting 03/02/2013 None Full Exam - General 1994 Cardiovascular extremities Edema present: severity 1+ - 4+: _ 03/02/2013 None Full Exam - General 1994 Cardiovascular extremities Edema present: to knees 03/02/2013 None Full Exam - General 1994 Cardiovascular auscultation of heart Overall: regular rate 03/02/2013 None Full Exam - General 1995 Constitutional general appearance Overall: well developed 03/02/2013 None Full Exam - General 1995 Constitutional general appearance Overall: in no acute distress 03/02/2013 None Full Exam - General 1995 Constitutional general appearance Overall: well nourished 03/02/2013 None Full Exam - General 1995 Eyes conjunctiva/eyelids Overall: conjunctiva clear 03/02/2013 None Full Exam - General 1995 Eyes conjunctiva/eyelids Overall: cornea clear 03/02/2013 None Full Exam - General 1995 Eyes conjunctiva/eyelids Overall: eyelids normal 03/02/2013 None Full Exam - General 1995 Eyes pupils and irises Overall: pupils equal, round, reactive to light and accomodation 03/02/2013 None Full Exam - General 1995 Cardiovascular auscultation of heart Systolic murmur grade: II/ 03/02/2013 None Full Exam - General 1995 Abdomen abdominal exam Overall: no tenderness 03/02/2013 None Full Exam - General 1995 Abdomen abdominal exam Overall: normal bowel sounds 03/02/2013 None Full Exam - General 1995 Abdomen liver and spleen exam Overall: no hepatosplenomegaly 03/02/2013 None Full Exam - General 1995 Abdomen liver and spleen exam Overall: no stigmata of chronic liver disease 03/02/2013 None Full Exam - General 1995 Musculoskeletal spine, ribs and pelvis Posture: lordosis 03/02/2013 None Full Exam - General 1995 Musculoskeletal head and neck Overall: head atraumatic 03/02/2013 None Full Exam - General 1995 Musculoskeletal head and neck Overall: cervical spine benign 03/02/2013 None Full Exam - General 1994 Neurologic deep tendon reflexes Overall: deep tendon reflexes intact 03/02/2013 None Full Exam - General 1994 Neurologic gait Overall: no ataxia, no unsteadiness 03/02/2013 None Full Exam - General 1995 Neurologic cranial nerves Overall: crainial nerves 2 - 12 grossly intact 03/02/2013 None Full Exam - General 1994 Psychiatric orientation/consciousness Overall: oriented to person, place and time 03/02/2013 None Full Exam - General 1995 Psychiatric mood and affect Mood: happy 03/02/2013 None Full Exam - General 1995 Psychiatric mood and affect Affect: mood congruent 03/02/2013 None Full Exam - General 1994 Psychiatric cognition/memory Remote memory: poor recollection of past events 03/02/2013 None Full Exam - General 1995 Psychiatric cognition/memory Recent past memory: unable to recall recent news events 03/02/2013 None Full Exam - General 1995 Psychiatric cognition/memory Immediate memory: unable to repeat 6 digits 03/02/2013 None Full Exam - General 1995 Psychiatric cognition/memory Immediate memory: unable to recall three words at five minutes 03/02/2013 [facility] exam points Full Exam - Dermatology Constitutional general appearance Overall: well nourished 09/30/2012 None Full Exam - Dermatology Constitutional general appearance Overall: well developed 09/30/2012 None Full Exam - Dermatology Constitutional general appearance Overall: in no acute distress 09/30/2012 None Full Exam - Dermatology Psychiatric orientation Overall: oriented to person, place and time 09/30/2012 None Full Exam - Dermatology Integument insp & palp - right lower extremity Distribution: localized 09/30/2012 None Full Exam - Dermatology Integument insp & palp - right lower extremity Location: on the knee 09/30/2012 behind right knee-erythematous scaly plaque Full Exam - Dermatology Integument insp & palp - right lower extremity Color: erythematous 09/30/2012 None Full Exam - Dermatology Integument insp & palp - right lower extremity Appearance: scaly 09/30/2012 None Full Exam - General 1994 Constitutional general appearance Overall: well developed 07/07/2012 None Full Exam - General 1994 Constitutional general appearance Overall: in no acute distress 07/07/2012 None Full Exam - General 1994 Constitutional general appearance Overall: well nourished 07/07/2012 None Full Exam - General 1994 Eyes conjunctiva/eyelids Overall: conjunctiva clear 07/07/2012 None Full Exam - General 1994 Eyes conjunctiva/eyelids Overall: cornea clear 07/07/2012 None Full Exam - General 1994 Eyes conjunctiva/eyelids Overall: eyelids normal 07/07/2012 None Full Exam - General 1994 Eyes pupils and irises Overall: pupils equal, round, reactive to light and accomodation 07/07/2012 None Full Exam - General 1994 Respiratory auscultation Overall: breath sounds clear bilaterally 07/07/2012 None Full Exam - General 1994 Respiratory respiratory effort/rhythm Overall: no retractions 07/07/2012 None Full Exam - General 1994 Respiratory respiratory effort/rhythm Overall: normal rate 07/07/2012 None Full Exam - General 1994 Cardiovascular extremities Overall: no clubbing 07/07/2012 None Full Exam - General 1995 Cardiovascular extremities Edema present: pitting 07/07/2012 None Full Exam - General 1995 Cardiovascular extremities Edema present: severity 1+ - 4+: _ 07/07/2012 None Full Exam - General 1995 Cardiovascular extremities Edema present: to knees 07/07/2012 None Full Exam - General 1995 Cardiovascular auscultation of heart Overall: regular rate 07/07/2012 None Full Exam - General 1995 Cardiovascular auscultation of heart Systolic murmur grade: II/ 07/07/2012 None Full Exam - General 1995 Abdomen abdominal exam Overall: no tenderness 07/07/2012 None Full Exam - General 1995 Abdomen abdominal exam Overall: normal bowel sounds 07/07/2012 None Full Exam - General 1995 Abdomen liver and spleen exam Overall: no hepatosplenomegaly 07/07/2012 None Full Exam - General 1995 Abdomen liver and spleen exam Overall: no stigmata of chronic liver disease 07/07/2012 None Full Exam - General 1995 Musculoskeletal spine, ribs and pelvis Posture: lordosis 07/07/2012 None Full Exam - General 1995 Musculoskeletal head and neck Overall: head atraumatic 07/07/2012 None Full Exam - General 1995 Musculoskeletal head and neck Overall: cervical spine benign 07/07/2012 None Full Exam - General 1995 Neurologic deep tendon reflexes Overall: deep tendon reflexes intact 07/07/2012 None Full Exam - General 1995 Neurologic gait Overall: no ataxia, no unsteadiness 07/07/2012 None Full Exam - General 1995 Neurologic cranial nerves Overall: crainial nerves 2 - 12 grossly intact 07/07/2012 None Full Exam - General 1994 Psychiatric orientation/consciousness Overall: oriented to person, place and time 07/07/2012 None Full Exam - General 1995 Psychiatric mood and affect Mood: happy 07/07/2012 None Full Exam - General 1995 Psychiatric mood and affect Affect: mood congruent 07/07/2012 None Full Exam - General 1995 Psychiatric cognition/memory Remote memory: poor recollection of past events 07/07/2012 None Full Exam - General 1995 Psychiatric cognition/memory Recent past memory: unable to recall recent news events 07/07/2012 None Full Exam - General 1995 Psychiatric cognition/memory Immediate memory: unable to repeat 6 digits 07/07/2012 None Full Exam - General 1995 Psychiatric cognition/memory Immediate memory: unable to recall three words at five minutes 07/07/2012 [facility] exam points Full Exam - General 1995 Ears/Nose/Throat otoscopic exam Overall: tympanic membranes clear 07/07/2012 None Full Exam - General 1995 Ears/Nose/Throat otoscopic exam Overall: external auditory canals clear 07/07/2012 None Full Exam - General 1995 Ears/Nose/Throat oral cavity/pharynx/larynx Overall: oropharyngeal mucosa clear 07/07/2012 None Full Exam - General 1995 Ears/Nose/Throat oral cavity/pharynx/larynx Overall: no masses 07/07/2012 None Full Exam - General 1995 Ears/Nose/Throat oral cavity/pharynx/larynx Overall: oral mucosa clear 07/07/2012 None Full Exam - General 1995 Constitutional general appearance Overall: well developed 01/07/2012 None Full Exam - General 1994 Constitutional general appearance Overall: in no acute distress 01/07/2012 None Full Exam - General 1994 Constitutional general appearance Overall: well nourished 01/07/2012 None Full Exam - General 1994 Eyes conjunctiva/eyelids Overall: conjunctiva clear 01/07/2012 None Full Exam - General 1994 Eyes conjunctiva/eyelids Overall: cornea clear 01/07/2012 None Full Exam - General 1994 Eyes conjunctiva/eyelids Overall: eyelids normal 01/07/2012 None Full Exam - General 1994 Eyes pupils and irises Overall: pupils equal, round, reactive to light and accomodation 01/07/2012 None Full Exam - General 1994 Respiratory auscultation Overall: breath sounds clear bilaterally 01/07/2012 None Full Exam - General 1994 Respiratory respiratory effort/rhythm Overall: no retractions 01/07/2012 None Full Exam - General 1994 Respiratory respiratory effort/rhythm Overall: normal rate 01/07/2012 None Full Exam - General 1994 Cardiovascular extremities Overall: no clubbing 01/07/2012 None Full Exam - General 1994 Cardiovascular extremities Edema present: pitting 01/07/2012 None Full Exam - General 1994 Cardiovascular extremities Edema present: severity 1+ - 4+: _ 01/07/2012 None Full Exam - General 1994 Cardiovascular extremities Edema present: to knees 01/07/2012 None Full Exam - General 1994 Cardiovascular auscultation of heart Overall: regular rate 01/07/2012 None Full Exam - General 1994 Cardiovascular auscultation of heart Systolic murmur grade: II/ 01/07/2012 None Full Exam - General 1994 Abdomen abdominal exam Overall: no tenderness 01/07/2012 None Full Exam - General 1995 Abdomen abdominal exam Overall: normal bowel sounds 01/07/2012 None Full Exam - General 1995 Abdomen liver and spleen exam Overall: no hepatosplenomegaly 01/07/2012 None Full Exam - General 1995 Abdomen liver and spleen exam Overall: no stigmata of chronic liver disease 01/07/2012 None Full Exam - General 1995 Musculoskeletal spine, ribs and pelvis Posture: lordosis 01/07/2012 None Full Exam - General 1995 Musculoskeletal head and neck Overall: head atraumatic 01/07/2012 None Full Exam - General 1995 Musculoskeletal head and neck Overall: cervical spine benign 01/07/2012 None Full Exam - General 1995 Neurologic deep tendon reflexes Overall: deep tendon reflexes intact 01/07/2012 None Full Exam - General 1995 Neurologic gait Overall: no ataxia, no unsteadiness 01/07/2012 None Full Exam - General 1995 Neurologic cranial nerves Overall: crainial nerves 2 - 12 grossly intact 01/07/2012 None Full Exam - General 1994 Psychiatric orientation/consciousness Overall: oriented to person, place and time 01/07/2012 None Full Exam - General 1994 Psychiatric mood and affect Mood: happy 01/07/2012 None Full Exam - General 1994 Psychiatric mood and affect Affect: mood congruent 01/07/2012 None Full Exam - General 1994 Psychiatric cognition/memory Remote memory: poor recollection of past events 01/07/2012 None Full Exam - General 1994 Psychiatric cognition/memory Recent past memory: unable to recall recent news events 01/07/2012 None Full Exam - General 1994 Psychiatric cognition/memory Immediate memory: unable to repeat 6 digits 01/07/2012 None Full Exam - General 1994 Psychiatric cognition/memory Immediate memory: unable to recall three words at five minutes 01/07/2012 [facility] exam points Full Exam - General 1994 Constitutional general appearance Overall: well developed 12/17/2011 None Full Exam - General 1994 Constitutional general appearance Overall: in no acute distress 12/17/2011 None Full Exam - General 1994 Constitutional general appearance Overall: well nourished 12/17/2011 None Full Exam - General 1994 Eyes conjunctiva/eyelids Overall: conjunctiva clear 12/17/2011 None Full Exam - General 1994 Eyes conjunctiva/eyelids Overall: cornea clear 12/17/2011 None Full Exam - General 1994 Eyes conjunctiva/eyelids Overall: eyelids normal 12/17/2011 None Full Exam - General 1994 Eyes pupils and irises Overall: pupils equal, round, reactive to light and accomodation 12/17/2011 None Full Exam - General 1994 Respiratory auscultation Overall: breath sounds clear bilaterally 12/17/2011 None Full Exam - General 1994 Respiratory respiratory effort/rhythm Overall: no retractions 12/17/2011 None Full Exam - General 1994 Respiratory respiratory effort/rhythm Overall: normal rate 12/17/2011 None Full Exam - General 1994 Cardiovascular extremities Overall: no clubbing 12/17/2011 None Full Exam - General 1994 Cardiovascular extremities Edema present: pitting 12/17/2011 None Full Exam - General 1994 Cardiovascular extremities Edema present: severity 1+ - 4+: 1 12/17/2011 None Full Exam - General 1994 Cardiovascular extremities Edema present: to knees 12/17/2011 None Full Exam - General 1994 Cardiovascular auscultation of heart Overall: regular rate 12/17/2011 None Full Exam - General 1994 Cardiovascular auscultation of heart Systolic murmur grade: II/ 12/17/2011 None Full Exam - General 1994 Abdomen abdominal exam Overall: no tenderness 12/17/2011 None Full Exam - General 1994 Abdomen abdominal exam Overall: normal bowel sounds 12/17/2011 None Full Exam - General 1994 Abdomen liver and spleen exam Overall: no hepatosplenomegaly 12/17/2011 None Full Exam - General 1994 Abdomen liver and spleen exam Overall: no stigmata of chronic liver disease 12/17/2011 None Full Exam - General 1994 Musculoskeletal spine, ribs and pelvis Posture: lordosis 12/17/2011 None Full Exam - General 1994 Musculoskeletal head and neck Overall: head atraumatic 12/17/2011 None Full Exam - General 1994 Musculoskeletal head and neck Overall: cervical spine benign 12/17/2011 None Full Exam - General 1994 Neurologic deep tendon reflexes Overall: deep tendon reflexes intact 12/17/2011 None Full Exam - General 1994 Neurologic gait Overall: no ataxia, no unsteadiness 12/17/2011 None Full Exam - General 1994 Neurologic cranial nerves Overall: crainial nerves 2 - 12 grossly intact 12/17/2011 None Full Exam - General 1994 Psychiatric orientation/consciousness Overall: oriented to person, place and time 12/17/2011 None Full Exam - General 1994 Psychiatric mood and affect Mood: happy 12/17/2011 None Full Exam - General 1994 Psychiatric mood and affect Affect: mood congruent 12/17/2011 None Full Exam - General 1994 Psychiatric cognition/memory Remote memory: poor recollection of past events 12/17/2011 None Full Exam - General 1994 Psychiatric cognition/memory Recent past memory: unable to recall recent news events 12/17/2011 None Full Exam - General 1994 Psychiatric cognition/memory Immediate memory: unable to repeat 6 digits 12/17/2011 None Full Exam - General 1994 Psychiatric cognition/memory Immediate memory: unable to recall three words at five minutes 12/17/2011 [facility] exam points Full Exam - General 1994 Constitutional general appearance Overall: well developed 12/10/2011 None Full Exam - General 1994 Constitutional general appearance Overall: in no acute distress 12/10/2011 None Full Exam - General 1994 Constitutional general appearance Overall: well nourished 12/10/2011 None Full Exam - General 1994 Eyes conjunctiva/eyelids Overall: conjunctiva clear 12/10/2011 None Full Exam - General 1994 Eyes conjunctiva/eyelids Overall: cornea clear 12/10/2011 None Full Exam - General 1994 Eyes conjunctiva/eyelids Overall: eyelids normal 12/10/2011 None Full Exam - General 1994 Eyes pupils and irises Overall: pupils equal, round, reactive to light and accomodation 12/10/2011 None Full Exam - General 1994 Ears/Nose/Throat otoscopic exam Overall: external auditory canals clear 12/10/2011 None Full Exam - General 1994 Ears/Nose/Throat otoscopic exam Overall: tympanic membranes clear 12/10/2011 None Full Exam - General 1994 Ears/Nose/Throat lips/teeth/gingiva Overall: benign lips 12/10/2011 None Full Exam - General 1994 Ears/Nose/Throat lips/teeth/gingiva Overall: normal dentition 12/10/2011 None Full Exam - General 1995 Ears/Nose/Throat lips/teeth/gingiva Overall: benign gingiva 12/10/2011 None Full Exam - General 1994 Ears/Nose/Throat lips/teeth/gingiva Overall: no masses 12/10/2011 None Full Exam - General 1994 Ears/Nose/Throat oral cavity/pharynx/larynx Overall: oral mucosa clear 12/10/2011 None Full Exam - General 1994 Ears/Nose/Throat oral cavity/pharynx/larynx Posterior Pharynx: a normal exam 12/10/2011 None Full Exam - General 1994 Ears/Nose/Throat oral cavity/pharynx/larynx Oral mucosa: moist 12/10/2011 None Full Exam - General 1994 Ears/Nose/Throat oral cavity/pharynx/larynx Mobile tongue: large 12/10/2011 None Full Exam - General 1994 Ears/Nose/Throat oral cavity/pharynx/larynx Hard palate: a normal exam 12/10/2011 None Full Exam - General 1994 Ears/Nose/Throat oral cavity/pharynx/larynx Hypopharynx: a normal exam 12/10/2011 None Full Exam - General 1994 Neck thyroid Overall: normal size 12/10/2011 None Full Exam - General 1994 Neck thyroid Overall: normal consistency 12/10/2011 None Full Exam - General 1994 Neck thyroid Overall: nontender 12/10/2011 None Full Exam - General 1994 Neck thyroid Overall: no mass lesions 12/10/2011 None Full Exam - General 1994 Respiratory auscultation Overall: breath sounds clear bilaterally 12/10/2011 None Full Exam - General 1994 Respiratory respiratory effort/rhythm Overall: no retractions 12/10/2011 None Full Exam - General 1994 Respiratory respiratory effort/rhythm Overall: normal rate 12/10/2011 None Full Exam - General 1994 Cardiovascular extremities Overall: no clubbing 12/10/2011 None Full Exam - General 1994 Cardiovascular extremities Edema present: pitting 12/10/2011 None Full Exam - General 1994 Cardiovascular extremities Edema present: severity 1+ - 4+: 1 12/10/2011 None Full Exam - General 1994 Cardiovascular extremities Edema present: to knees 12/10/2011 None Full Exam - General 1994 Cardiovascular auscultation of heart Overall: regular rate 12/10/2011 None Full Exam - General 1994 Cardiovascular auscultation of heart Systolic murmur grade: II/ 12/10/2011 None Full Exam - General 1994 Abdomen abdominal exam Overall: no tenderness 12/10/2011 None Full Exam - General 1994 Abdomen abdominal exam Overall: normal bowel sounds 12/10/2011 None Full Exam - General 1994 Abdomen liver and spleen exam Overall: no hepatosplenomegaly 12/10/2011 None Full Exam - General 1994 Abdomen liver and spleen exam Overall: no stigmata of chronic liver disease 12/10/2011 None Full Exam - General 1994 Lymphatic neck nodes Overall: posterior cervical chain benign 12/10/2011 None Full Exam - General 1994 Lymphatic neck nodes Anterior cervical chain: soft 12/10/2011 None Full Exam - General 1994 Lymphatic neck nodes Anterior cervical chain: non-tender 12/10/2011 None Full Exam - General 1995 Musculoskeletal spine, ribs and pelvis Posture: lordosis 12/10/2011 None Full Exam - General 1995 Musculoskeletal head and neck Overall: head atraumatic 12/10/2011 None Full Exam - General 1995 Musculoskeletal head and neck Overall: cervical spine benign 12/10/2011 None Full Exam - General 1995 Neurologic deep tendon reflexes Overall: deep tendon reflexes intact 12/10/2011 None Full Exam - General 1995 Neurologic gait Overall: no ataxia, no unsteadiness 12/10/2011 None Full Exam - General 1995 Neurologic cranial nerves Overall: crainial nerves 2 - 12 grossly intact 12/10/2011 None Full Exam - General 1995 Psychiatric orientation/consciousness Overall: oriented to person, place and time 12/10/2011 None Full Exam - General 1995 Psychiatric mood and affect Mood: happy 12/10/2011 None Full Exam - General 1994 Psychiatric mood and affect Affect: mood congruent 12/10/2011 None Full Exam - General 1995 Psychiatric cognition/memory Remote memory: poor recollection of past events 12/10/2011 None Full Exam - General 1994 Psychiatric cognition/memory Recent past memory: unable to recall recent news events 12/10/2011 None Full Exam - General 1994 Psychiatric cognition/memory Immediate memory: unable to repeat 6 digits 12/10/2011 None Full Exam - General 1994 Psychiatric cognition/memory Immediate memory: unable to recall three words at five minutes 12/10/2011 [facility] exam points Full Exam - General 1994 Integument inspection of skin Location: right leg 12/10/2011 abrasion right knee-approx 2cm x 2 cm Full Exam - General 1994 Constitutional general appearance Overall: well nourished 11/26/2011 None Full Exam - General 1994 Constitutional general appearance Overall: well developed 11/26/2011 None Full Exam - General 1994 Constitutional general appearance Overall: in no acute distress 11/26/2011 None Full Exam - General 1994 Eyes pupils and irises Overall: pupils equal, round, reactive to light and accomodation 11/26/2011 None Full Exam - General 1994 Eyes conjunctiva/eyelids Overall: conjunctiva clear 11/26/2011 None Full Exam - General 1994 Eyes conjunctiva/eyelids Overall: eyelids normal 11/26/2011 None Full Exam - General 1994 Eyes conjunctiva/eyelids Overall: cornea clear 11/26/2011 None Full Exam - General 1994 Ears/Nose/Throat otoscopic exam Overall: tympanic membranes clear 11/26/2011 None Full Exam - General 1994 Ears/Nose/Throat otoscopic exam Overall: external auditory canals clear 11/26/2011 None Full Exam - General 1994 Ears/Nose/Throat lips/teeth/gingiva Overall: benign gingiva 11/26/2011 None Full Exam - General 1995 Ears/Nose/Throat lips/teeth/gingiva Overall: no masses 11/26/2011 None Full Exam - General 1994 Ears/Nose/Throat lips/teeth/gingiva Overall: normal dentition 11/26/2011 None Full Exam - General 1995 Ears/Nose/Throat lips/teeth/gingiva Overall: benign lips 11/26/2011 None Full Exam - General 1995 Ears/Nose/Throat oral cavity/pharynx/larynx Overall: oral mucosa clear 11/26/2011 None Full Exam - General 1994 Ears/Nose/Throat oral cavity/pharynx/larynx Posterior Pharynx: a normal exam 11/26/2011 None Full Exam - General 1994 Ears/Nose/Throat oral cavity/pharynx/larynx Oral mucosa: moist 11/26/2011 None Full Exam - General 1994 Ears/Nose/Throat oral cavity/pharynx/larynx Mobile tongue: large 11/26/2011 None Full Exam - General 1994 Ears/Nose/Throat oral cavity/pharynx/larynx Hard palate: a normal exam 11/26/2011 None Full Exam - General 1995 Ears/Nose/Throat oral cavity/pharynx/larynx Hypopharynx: a normal exam 11/26/2011 None Full Exam - General 1994 Neck thyroid Overall: nontender 11/26/2011 None Full Exam - General 1994 Neck thyroid Overall: normal size 11/26/2011 None Full Exam - General 1994 Neck thyroid Overall: no mass lesions 11/26/2011 None Full Exam - General 1994 Neck thyroid Overall: normal consistency 11/26/2011 None Full Exam - General 1994 Respiratory auscultation Overall: breath sounds clear bilaterally 11/26/2011 None Full Exam - General 1994 Respiratory respiratory effort/rhythm Overall: normal rate 11/26/2011 None Full Exam - General 1994 Respiratory respiratory effort/rhythm Overall: no retractions 11/26/2011 None Full Exam - General 1994 Cardiovascular extremities Overall: no clubbing 11/26/2011 None Full Exam - General 1994 Cardiovascular extremities Edema present: pitting 11/26/2011 None Full Exam - General 1994 Cardiovascular extremities Edema present: severity 1+ - 4+: 1 11/26/2011 None Full Exam - General 1994 Cardiovascular extremities Edema present: to knees 11/26/2011 None Full Exam - General 1994 Cardiovascular auscultation of heart Overall: regular rate 11/26/2011 None Full Exam - General 1994 Cardiovascular auscultation of heart Systolic murmur grade: II/ 11/26/2011 None Full Exam - General 1994 Abdomen abdominal exam Overall: no tenderness 11/26/2011 None Full Exam - General 1994 Abdomen abdominal exam Overall: normal bowel sounds 11/26/2011 None Full Exam - General 1994 Abdomen liver and spleen exam Overall: no hepatosplenomegaly 11/26/2011 None Full Exam - General 1994 Abdomen liver and spleen exam Overall: no stigmata of chronic liver disease 11/26/2011 None Full Exam - General 1994 Lymphatic neck nodes Overall: posterior cervical chain benign 11/26/2011 None Full Exam - General 1994 Lymphatic neck nodes Anterior cervical chain: soft 11/26/2011 None Full Exam - General 1994 Lymphatic neck nodes Anterior cervical chain: non-tender 11/26/2011 None Full Exam - General 1994 Musculoskeletal spine, ribs and pelvis Posture: lordosis 11/26/2011 None Full Exam - General 1994 Musculoskeletal head and neck Overall: cervical spine benign 11/26/2011 None Full Exam - General 1994 Musculoskeletal head and neck Overall: head atraumatic 11/26/2011 None Full Exam - General 1994 Neurologic gait Overall: no ataxia, no unsteadiness 11/26/2011 None Full Exam - General 1994 Neurologic deep tendon reflexes Overall: deep tendon reflexes intact 11/26/2011 None Full Exam - General 1994 Neurologic cranial nerves Overall: crainial nerves 2 - 12 grossly intact 11/26/2011 None Full Exam - General 1994 Psychiatric orientation/consciousness Overall: oriented to person, place and time 11/26/2011 None Full Exam - General 1994 Psychiatric mood and affect Mood: happy 11/26/2011 None Full Exam - General 1994 Psychiatric mood and affect Affect: mood congruent 11/26/2011 None Full Exam - General 1994 Psychiatric cognition/memory Remote memory: poor recollection of past events 11/26/2011 None Full Exam - General 1994 Psychiatric cognition/memory Recent past memory: unable to recall recent news events 11/26/2011 None Full Exam - General 1994 Psychiatric cognition/memory Immediate memory: unable to repeat 6 digits 11/26/2011 None Full Exam - General 1994 Psychiatric cognition/memory Immediate memory: unable to recall three words at five minutes 11/26/2011 [facility] exam points Procedures Procedure Codes Date THER/PROPH/DIAG INJ SC/IM CPT-4: 14717 11/30/2018 VITAMIN B12 INJECTION CPT- 4: J3420 11/30/2018 THER/PROPH/DIAG INJ SC/IM CPT-4: 78763 11/02/2018 VITAMIN B12 INJECTION CPT- 4: J3420 11/02/2018 THER/PROPH/DIAG INJ SC/IM CPT-4: 42612 09/28/2018 VITAMIN B12 INJECTION CPT- 4: J3420 09/28/2018 THER/PROPH/DIAG INJ SC/IM CPT-4: 86330 08/28/2018 VITAMIN B12 INJECTION CPT- 4: J3420 08/28/2018 THER/PROPH/DIAG INJ SC/IM CPT-4: 45976 07/31/2018 VITAMIN B12 INJECTION CPT- 4: J3420 07/31/2018 THER/PROPH/DIAG INJ SC/IM CPT-4: 20807 07/01/2018 VITAMIN B12 INJECTION CPT- 4: J3420 07/01/2018 ADMIN INFLUENZA VIRUS VAC CPT-4: G0008 2018 FLU VACC PRSV FREE INC ANTIG CPT-4: 83916 2018 THER/PROPH/DIAG INJ SC/IM CPT-4: 68858 2018 VITAMIN B12 INJECTION CPT- 4: J3420 2018 THER/PROPH/DIAG INJ SC/IM CPT-4: 74030 03/30/2018 VITAMIN B12 INJECTION CPT- 4: J3420 03/30/2018 THER/PROPH/DIAG INJ SC/IM CPT-4: 22918 03/03/2018 VITAMIN B12 INJECTION CPT- 4: J3420 03/03/2018 THER/PROPH/DIAG INJ SC/IM CPT-4: 51746 01/28/2018 VITAMIN B12 INJECTION CPT- 4: J3420 01/28/2018 THER/PROPH/DIAG INJ SC/IM CPT-4: 86252 12/29/2017 VITAMIN B12 INJECTION CPT- 4: J3420 12/29/2017 THER/PROPH/DIAG INJ SC/IM CPT-4: 38956 12/01/2017 VITAMIN B12 INJECTION CPT- 4: J3420 12/01/2017 VITAMIN B12 INJECTION CPT- 4: J3420 10/28/2017 THER/PROPH/DIAG INJ SC/IM CPT-4: 09230 10/28/2017 THER/PROPH/DIAG INJ SC/IM CPT-4: 45753 09/29/2017 VITAMIN B12 INJECTION CPT- 4: J3420 09/29/2017 THER/PROPH/DIAG INJ SC/IM CPT-4: 31750 09/02/2017 VITAMIN B12 INJECTION CPT- 4: J3420 09/02/2017 THER/PROPH/DIAG INJ SC/IM CPT-4: 25720 08/04/2017 VITAMIN B12 INJECTION CPT- 4: J3420 08/04/2017 THER/PROPH/DIAG INJ SC/IM CPT-4: 77986 07/01/2017 VITAMIN B12 INJECTION CPT- 4: J3420 07/01/2017 THER/PROPH/DIAG INJ SC/IM CPT-4: 32276 05/30/2017 VITAMIN B12 INJECTION CPT- 4: J3420 05/30/2017 THER/PROPH/DIAG INJ SC/IM CPT-4: 77326 2017 ADMIN INFLUENZA VIRUS VAC CPT-4: G0008 2017 [employer]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 3-[address]: 970464188 CPT-4: G0436 2017 VITAMIN B12 INJECTION CPT- 4: J3420 2017 FLU VACC PRSV FREE INC ANTIG CPT-4: 46722 2017 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 3-[address]: 163652871 CPT-4: G0436 03/31/2017 VITAMIN B12 INJECTION CPT- 4: J3420 03/31/2017 THER/PROPH/DIAG INJ SC/IM CPT-4: 20549 02/28/2017 VITAMIN B12 INJECTION CPT- 4: J3420 02/28/2017 THER/PROPH/DIAG INJ SC/IM CPT-4: 62839 02/03/2017 VITAMIN B12 INJECTION CPT- 4: J3420 02/03/2017 [employer]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 3-[address]: 529318132 CPT-4: G0436 12/30/2016 THER/PROPH/DIAG INJ SC/IM CPT-4: 26574 12/30/2016 VITAMIN B12 INJECTION CPT- 4: J3420 12/30/2016 THER/PROPH/DIAG INJ SC/IM CPT-4: 81658 12/02/2016 VITAMIN B12 INJECTION CPT- 4: J3420 12/02/2016 THER/PROPH/DIAG INJ SC/IM CPT-4: 85890 10/29/2016 VITAMIN B12 INJECTION CPT- 4: J3420 10/29/2016 THER/PROPH/DIAG INJ SC/IM CPT-4: 72520 10/01/2016 VITAMIN B12 INJECTION CPT- 4: J3420 10/01/2016 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 3-[address]: 109266520 CPT-4: G0436 09/02/2016 VITAMIN B12 INJECTION CPT- 4: J3420 09/02/2016 THER/PROPH/DIAG INJ SC/IM CPT-4: 24813 09/02/2016 THER/PROPH/DIAG INJ SC/IM CPT-4: 86141 08/05/2016 VITAMIN B12 INJECTION CPT- 4: J3420 08/05/2016 THER/PROPH/DIAG INJ SC/IM CPT-4: 72741 07/02/2016 VITAMIN B12 INJECTION CPT- 4: J3420 07/02/2016 VITAMIN B12 INJECTION CPT- 4: J3420 06/03/2016 THER/PROPH/DIAG INJ SC/IM CPT-4: 02262 06/03/2016 THER/PROPH/DIAG INJ SC/IM CPT-4: 70281 2016 VITAMIN B12 INJECTION CPT- 4: J3420 2016 THER/PROPH/DIAG INJ SC/IM CPT-4: 32628 04/01/2016 VITAMIN B12 INJECTION CPT- 4: J3420 04/01/2016 VITAMIN B12 INJECTION CPT- 4: J3420 03/05/2016 THER/PROPH/DIAG INJ SC/IM CPT-4: 26528 03/05/2016 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 3-[address]: 350966208 CPT-4: G0436 01/29/2016 THER/PROPH/DIAG INJ SC/IM CPT-4: 23747 01/29/2016 VITAMIN B12 INJECTION CPT- 4: J3420 01/29/2016 THER/PROPH/DIAG INJ SC/IM CPT-4: 79503 01/02/2016 VITAMIN B12 INJECTION CPT- 4: J3420 01/02/2016 VITAMIN B12 INJECTION CPT- 4: J3420 12/04/2015 THER/PROPH/DIAG INJ SC/IM CPT-4: 96339 12/04/2015 THER/PROPH/DIAG INJ SC/IM CPT-4: 43613 10/30/2015 VITAMIN B12 INJECTION CPT- 4: J3420 10/30/2015 PPPS, SUBSEQ VISIT CPT- 4: G0439 10/11/2015 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 3-[address]: 744217879 CPT-4: G0436 10/11/2015 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 3-[address]: 878323173 CPT-4: G0436 10/02/2015 THER/PROPH/DIAG INJ SC/IM CPT-4: 65741 10/02/2015 VITAMIN B12 INJECTION CPT- 4: J3420 10/02/2015 THER/PROPH/DIAG INJ SC/IM CPT-4: 48517 08/29/2015 VITAMIN B12 INJECTION CPT- 4: J3420 08/29/2015 THER/PROPH/DIAG INJ SC/IM CPT-4: 58350 07/31/2015 VITAMIN B12 INJECTION CPT- 4: J3420 07/31/2015 THER/PROPH/DIAG INJ SC/IM CPT-4: 74067 07/03/2015 VITAMIN B12 INJECTION CPT- 4: J3420 07/03/2015 THER/PROPH/DIAG INJ SC/IM CPT-4: 38925 06/05/2015 VITAMIN B12 INJECTION CPT- 4: J3420 06/05/2015 VITAMIN B12 INJECTION CPT- 4: J3420 05/01/2015 THER/PROPH/DIAG INJ SC/IM CPT-4: 16132 05/01/2015 THER/PROPH/DIAG INJ SC/IM CPT-4: 69904 04/03/2015 VITAMIN B12 INJECTION CPT- 4: J3420 04/03/2015 THER/PROPH/DIAG INJ SC/IM CPT-4: 27349 02/28/2015 VITAMIN B12 INJECTION CPT- 4: J3420 02/28/2015 THER/PROPH/DIAG INJ SC/IM CPT-4: 26959 01/30/2015 VITAMIN B12 INJECTION CPT- 4: J3420 01/30/2015 VITAMIN B12 INJECTION CPT- 4: J3420 01/02/2015 THER/PROPH/DIAG INJ SC/IM CPT-4: 50034 01/02/2015 THER/PROPH/DIAG INJ SC/IM CPT-4: 11785 11/28/2014 VITAMIN B12 INJECTION CPT- 4: J3420 11/28/2014 THER/PROPH/DIAG INJ SC/IM CPT-4: 95908 10/31/2014 VITAMIN B12 INJECTION CPT- 4: J3420 10/31/2014 THER/PROPH/DIAG INJ SC/IM CPT-4: 70477 10/03/2014 VITAMIN B12 INJECTION CPT- 4: J3420 10/03/2014 THER/PROPH/DIAG INJ SC/IM CPT-4: 07452 08/30/2014 VITAMIN B12 INJECTION CPT- 4: J3420 08/30/2014 THER/PROPH/DIAG INJ SC/IM CPT-4: 65158 08/02/2014 VITAMIN B12 INJECTION CPT- 4: J3420 08/02/2014 THER/PROPH/DIAG INJ SC/IM CPT-4: 81530 07/04/2014 VITAMIN B12 INJECTION CPT- 4: J3420 07/04/2014 THER/PROPH/DIAG INJ SC/IM CPT-4: 08930 05/30/2014 VITAMIN B12 INJECTION CPT- 4: J3420 05/30/2014 THER/PROPH/DIAG INJ SC/IM CPT-4: 07484 05/02/2014 VITAMIN B12 INJECTION CPT- 4: J3420 05/02/2014 THER/PROPH/DIAG INJ SC/IM CPT-4: 77392 04/05/2014 THER/PROPH/DIAG INJ SC/IM CPT-4: 28598 03/07/2014 VITAMIN B12 INJECTION CPT- 4: J3420 03/07/2014 THER/PROPH/DIAG INJ SC/IM CPT-4: 22811 02/01/2014 VITAMIN B12 INJECTION CPT- 4: J3420 02/01/2014 VITAMIN B12 INJECTION CPT- 4: J3420 12/30/2013 THER/PROPH/DIAG INJ SC/IM CPT-4: 27453 12/30/2013 THER/PROPH/DIAG INJ SC/IM CPT-4: 80653 11/30/2013 VITAMIN B12 INJECTION CPT- 4: J3420 11/30/2013 THER/PROPH/DIAG INJ SC/IM CPT-4: 86740 11/02/2013 VITAMIN B12 INJECTION CPT- 4: J3420 11/02/2013 THER/PROPH/DIAG INJ SC/IM CPT-4: 40295 08/31/2013 VITAMIN B12 INJECTION CPT- 4: J3420 08/31/2013 THER/PROPH/DIAG INJ SC/IM CPT-4: 91690 08/04/2013 VITAMIN B12 INJECTION CPT- 4: J3420 08/04/2013 VITAMIN B12 INJECTION CPT- 4: J3420 07/06/2013 THER/PROPH/DIAG INJ SC/IM CPT-4: 87820 07/06/2013 THER/PROPH/DIAG INJ SC/IM CPT-4: 74986 05/31/2013 VITAMIN B12 INJECTION CPT- 4: J3420 05/31/2013 ADMIN INFLUENZA VIRUS VAC CPT-4: G0008 05/04/2013 FLULAVAL VACC, 3 YRS & >, IM CPT-4: Q2036 05/04/2013 THER/PROPH/DIAG INJ SC/IM CPT-4: 02050 05/04/2013 VITAMIN B12 INJECTION CPT- 4: J3420 05/04/2013 THER/PROPH/DIAG INJ SC/IM CPT-4: 17270 03/30/2013 VITAMIN B12 INJECTION CPT- 4: J3420 03/30/2013 THER/PROPH/DIAG INJ SC/IM CPT-4: 86302 03/02/2013 VITAMIN B12 INJECTION CPT- 4: J3420 03/02/2013 [id number] EST. PATIENT, LEVEL IV CPT-4: 74867 03/02/2013 THER/PROPH/DIAG INJ SC/IM CPT-4: 13641 02/02/2013 VITAMIN B12 INJECTION CPT- 4: J3420 02/02/2013 THER/PROPH/DIAG INJ SC/IM CPT-4: 03028 12/29/2012 VITAMIN B12 INJECTION CPT- 4: J3420 12/29/2012 TRIAMCINOLONE ACET INJ NOS CPT-4: J3301 12/01/2012 VITAMIN B12 INJECTION CPT- 4: J3420 12/01/2012 VITAMIN B12 INJECTION CPT- 4: J3420 11/03/2012 THER/PROPH/DIAG INJ SC/IM CPT-4: 55506 11/03/2012 THER/PROPH/DIAG INJ SC/IM CPT-4: 74520 09/30/2012 VITAMIN B12 INJECTION CPT- 4: J3420 09/30/2012 PRESCRIP TRANSMIT VIA ERX SY CPT-4: G8553 09/30/2012 VITAMIN B12 INJECTION CPT- 4: J3420 09/08/2012 THER/PROPH/DIAG INJ SC/IM CPT-4: 49693 09/08/2012 THER/PROPH/DIAG INJ SC/IM CPT-4: 40414 08/25/2012 ROUTINE VENIPUNCTURE CPT- 4: 18687 08/25/2012 VITAMIN B12 INJECTION CPT- 4: J3420 08/25/2012 THER/PROPH/DIAG INJ SC/IM CPT-4: 39394 08/11/2012 VITAMIN B12 INJECTION CPT- 4: J3420 08/11/2012 VITAMIN B12 INJECTION CPT- 4: J3420 07/21/2012 THER/PROPH/DIAG INJ SC/IM CPT-4: 90529 07/21/2012 THER/PROPH/DIAG INJ SC/IM CPT-4: 35561 07/07/2012 VITAMIN B12 INJECTION CPT- 4: J3420 07/07/2012 ROUTINE VENIPUNCTURE CPT- 4: 64628 07/07/2012 VITAMIN B12 INJECTION CPT- 4: J3420 06/25/2012 THER/PROPH/DIAG INJ SC/IM CPT-4: 97081 06/25/2012 VITAMIN B12 INJECTION CPT- 4: J3420 06/09/2012 THER/PROPH/DIAG INJ SC/IM CPT-4: 06153 06/09/2012 VITAMIN B12 INJECTION CPT- 4: J3420 05/25/2012 THER/PROPH/DIAG INJ SC/IM CPT-4: 55621 05/25/2012 VITAMIN B12 INJECTION CPT- 4: J3420 05/12/2012 THER/PROPH/DIAG INJ SC/IM CPT-4: 09094 05/12/2012 VITAMIN B12 INJECTION CPT- 4: J3420 04/20/2012 THER/PROPH/DIAG INJ SC/IM CPT-4: 92781 04/20/2012 THER/PROPH/DIAG INJ SC/IM CPT-4: 84675 04/07/2012 VITAMIN B12 INJECTION CPT- 4: J3420 04/07/2012 VITAMIN B12 INJECTION CPT- 4: J3420 03/10/2012 THER/PROPH/DIAG INJ SC/IM CPT-4: 58099 03/10/2012 VITAMIN B12 INJECTION CPT- 4: J3420 02/18/2012 THER/PROPH/DIAG INJ SC/IM CPT-4: 84297 02/18/2012 THER/PROPH/DIAG INJ SC/IM CPT-4: 31199 02/04/2012 VITAMIN B12 INJECTION CPT- 4: J3420 02/04/2012 THER/PROPH/DIAG INJ SC/IM CPT-4: 83890 01/21/2012 VITAMIN B12 INJECTION CPT- 4: J3420 01/21/2012 VITAMIN B12 INJECTION CPT- 4: J3420 01/07/2012 VITAMIN B12 INJECTION CPT- 4: J3420 12/17/2011 URINALYSIS NONAUTO W/O SCOPE CPT-4: 45128 12/10/2011 ROUTINE VENIPUNCTURE CPT- 4: 78510 12/10/2011 URINALYSIS NONAUTO W/O SCOPE CPT-4: 53146 11/26/2011 Vital Signs Date Vital 11/05/2017 Blood Pressure 1: 136/82 Code: 8480-6 BMI: 25.7 Code: 84519-4 Heart Rate 1: 78 bpm Height: 5'7" SpO2: 97% Weight: 164 lbs 10/28/2017 Height: 5'7" 12/18/2015 Blood Pressure 1: 140/68 Code: 8480-6 BMI: 25.7 Code: 51879-4 Heart Rate 1: 83 bpm Height: 5'7" SpO2: 95% Weight: 164 lbs 10/11/2015 Blood Pressure 1: 128/80 Code: 8480-6 BMI: 26.0 Code: 45725-1 Heart Rate 1: 80 bpm Height: 5'7" SpO2: 97% Waist Measure (cm): 89 cm Weight: 166 lbs 01/16/2015 Blood Pressure 1: 122/84 Code: 8480-6 BMI: 25.7 Code: 01835-6 Heart Rate 1: 68 bpm Height: 5'7" SpO2: 95% Weight: 164 lbs 08/02/2014 Blood Pressure 1: 140/86 Code: 8480-6 BMI: 25.1 Code: 40982-4 Heart Rate 1: 64 bpm Height: 5'7" Weight: 160 lbs 03/02/2013 Blood Pressure 1: 108/74 Code: 8480-6 BMI: 28.3 Code: 76006-3 Heart Rate 1: 80 bpm Height: 5'7" Weight: 181 lbs 09/30/2012 Blood Pressure 1: 126/74 Code: 8480-6 Heart Rate 1: 64 bpm Weight: 07/07/2012 Blood Pressure 1: 130/84 Code: 8480-6 BMI: 26.6 Code: 22549-2 Heart Rate 1: 80 bpm Height: 5'7" Weight: 170 lbs 01/07/2012 Blood Pressure 1: 100/62 Code: 8480-6 Heart Rate 1: 76 bpm Respiratory Rate: 18 bpm Weight: 166 lbs 12/17/2011 Blood Pressure 1: 94/58 Code: 8480-6 Heart Rate 1: 76 bpm Weight: 166 lbs 12/10/2011 Blood Pressure 1: 90/60 Code: 8480-6 Heart Rate 1: 80 bpm SpO2: 97% Weight: 163 lbs 11/26/2011 Blood Pressure 1: 110/68 Code: 8480-6 BMI: 25.7 Code: 21188-1 Heart Rate 1: 68 bpm Height: 5'7" Weight: 164 lbs Functional Status No Functional Status data History of Present Illness Symptom Name Status Result Effective Date Notes depression Quality worsening 11/05/2017 None depression Pertinent Findings depressed mood 11/05/2017 None vaccination against influenza Location deltoid- Lt 2017 None sores Quality acute 12/18/2015 None sores Quality new 12/18/2015 None sores Quality erythematous 12/18/2015 None sores Onset and Resolution sudden in onset 12/18/2015 None sores Onset of Symptom 2 weeks ago 12/18/2015 None sores Pertinent Findings Denies pain 12/18/2015 None sores Pertinent Findings Denies tenderness 12/18/2015 None sores Location-Major on the lower body 12/04/2015 None sores Location-Major on the legs 12/04/2015 None sores Location-Extremities on the right leg 12/04/2015 None sores Quality acute 12/04/2015 None sores Quality new 12/04/2015 None sores Quality erythematous 12/04/2015 None sores Color red 12/04/2015 None sores Onset and Resolution sudden in onset 12/04/2015 None sores Onset of Symptom 2 weeks ago 12/04/2015 None sores Pertinent Findings Denies pain 12/04/2015 None sores Pertinent Findings Denies tenderness 12/04/2015 None Annual Medicare Wellness Exam Alcohol Use does not drink any alcohol 10/11/2015 None Annual Medicare Wellness Exam Aspirin Use yes 10/11/2015 None Annual Medicare Wellness Exam Blood Glucose (self reported) desireable (below 100) 10/11/2015 None Annual Medicare Wellness Exam Blood Pressure (self reported) borderline (120/80 - 139/89) 10/11/2015 None Annual Medicare Wellness Exam Cholesterol (self reported) desireable (below 200) 10/11/2015 None Annual Medicare Wellness Exam Depression (last 6 months) some of the time 10/11/2015 None Annual Medicare Wellness Exam Depression or Hopelessness some of the time 10/11/2015 None Annual Medicare Wellness Exam Describe Your Health good 10/11/2015 None Annual Medicare Wellness Exam Exercise Habits exercises 7 days per week 10/11/2015 None Annual Medicare Wellness Exam Exercise Habits exercises 120 minutes per day 10/11/2015 None Annual Medicare Wellness Exam Handling Stress usually [place] effectively 10/11/2015 None Annual Medicare Wellness Exam Hemaglobin A-1C (self reported) don't know 10/11/2015 None Annual Medicare Wellness Exam Hours of Sleep 6 10/11/2015 None Annual Medicare Wellness Exam Interaction with Friends yes 10/11/2015 None Annual Medicare Wellness Exam Interests & Pleasure almost all of the time 10/11/2015 None Annual Medicare Wellness Exam Life Satisfaction satisfied 10/11/2015 None Annual Medicare Wellness Exam Motor Vehicle Safety always fastens seat belt: _ 10/11/2015 None Annual Medicare Wellness Exam Motor Vehicle Safety drives after drinking: n 10/11/2015 None Annual Medicare Wellness Exam Motor Vehicle Safety rides with someone who has been drinking: n 10/11/2015 None Annual Medicare Wellness Exam Nutrition servings of fried food / high fat foods per day: 2 10/11/2015 None Annual Medicare Wellness Exam Nutrition servings of high fiber / whole grain per day: 1 10/11/2015 None Annual Medicare Wellness Exam Nutrition servings of vegetables / fruit per day: 2 10/11/2015 None Annual Medicare Wellness Exam Smoking and Tobacco Use cigarette smoker 10/11/2015 None Annual Medicare Wellness Exam Social & Emotional Support always 10/11/2015 None Annual Medicare Wellness Exam Stress some of the time 10/11/2015 None Annual Medicare Wellness Exam Sun Exposure protects skin when outdoors: y 10/11/2015 None leg pain/sciatica Location right leg sciatica 01/16/2015 None leg pain/sciatica Quality intermittent 01/16/2015 None leg pain/sciatica Pertinent Findings male 01/16/2015 None depression Quality worsening 01/16/2015 None depression Pertinent Findings depressed mood 01/16/2015 None skin lesion Location on the forehead 08/02/2014 None skin lesion Onset of Symptom 2 weeks ago 08/02/2014 None skin lesion Pertinent Findings Denies fever 08/02/2014 None skin lesion Severity mild 08/02/2014 None skin lesion Frequency of Episodes unchanged 08/02/2014 None skin lesion Onset and Resolution ongoing 08/02/2014 None skin lesion Quality acute 08/02/2014 None skin lesion Triggers no known associated factors 08/02/2014 None skin lesion Alleviating Factors no alleviating factors 08/02/2014 None psychosis Quality chronic 03/02/2013 None psychosis Onset and Resolution ongoing 03/02/2013 None psychosis Onset of Symptom during adulthood 03/02/2013 None psychosis Pertinent Findings Denies dizziness 03/02/2013 None psychosis Pertinent Findings Denies weakness 03/02/2013 None psychosis Alleviating Factors medication 03/02/2013 None rash Location-Extremities on the left leg 09/30/2012 behind his knee rash Color red 09/30/2012 None rash Quality dry 09/30/2012 None rash Onset of Symptom as an adult 09/30/2012 unknown-brother noticed it last week when he was trying on clothes for a rash Severity mild 09/30/2012 None rash Prior Treatments previously untreated 09/30/2012 None rash Triggers no known triggers 09/30/2012 None rash Pertinent Findings Denies itching 09/30/2012 None memory loss Onset and Resolution sudden in onset 07/07/2012 None memory loss Onset of Symptom _ months ago 07/07/2012 None memory loss Onset of Symptom during adulthood 07/07/2012 None memory loss Limitation on Activities moderately limits activities 07/07/2012 None memory loss Frequency of Episodes daily 07/07/2012 None memory loss Significant Medical Conditions other neurologic symptoms 07/07/2012 None memory loss Triggers no known associated factors 07/07/2012 None memory loss Pertinent Findings ataxia 07/07/2012 None memory loss Pertinent Findings motor deficits 07/07/2012 None memory loss Pertinent Findings sensory deficits 07/07/2012 None memory loss Quality chronic 07/07/2012 None muscle weakness Location diffusely 07/07/2012 still having weak spells muscle weakness Onset and Resolution gradual in onset 07/07/2012 None muscle weakness Onset and Resolution worse during the day 07/07/2012 None muscle weakness Limitation on Activities moderately limits activities 07/07/2012 None muscle weakness Frequency of Episodes daily 07/07/2012 None muscle weakness Pertinent Findings anxiety 07/07/2012 None muscle weakness Pertinent Findings lethargy 07/07/2012 None muscle weakness Pertinent Findings Denies neck stiffness 07/07/2012 None muscle weakness Pertinent Findings Denies pain 07/07/2012 None muscle weakness Pertinent Findings Denies respiratory difficulties 07/07/2012 None muscle weakness Pertinent Findings Denies weight loss 07/07/2012 None memory loss Pertinent Findings motor deficits 01/07/2012 None memory loss Pertinent Findings sensory deficits 01/07/2012 None memory loss Quality chronic 01/07/2012 None muscle weakness Location diffusely 01/07/2012 still having weak spells muscle weakness Onset and Resolution gradual in onset 01/07/2012 None muscle weakness Onset and Resolution worse during the day 01/07/2012 None muscle weakness Limitation on Activities moderately limits activities 01/07/2012 None muscle weakness Frequency of Episodes daily 01/07/2012 None muscle weakness Pertinent Findings anxiety 01/07/2012 None muscle weakness Pertinent Findings lethargy 01/07/2012 None muscle weakness Pertinent Findings Denies neck stiffness 01/07/2012 None muscle weakness Pertinent Findings Denies pain 01/07/2012 None muscle weakness Pertinent Findings Denies respiratory difficulties 01/07/2012 None muscle weakness Pertinent Findings Denies weight loss 01/07/2012 None memory loss Onset and Resolution sudden in onset 01/07/2012 None memory loss Onset of Symptom _ months ago 01/07/2012 None memory loss Onset of Symptom during adulthood 01/07/2012 None memory loss Limitation on Activities moderately limits activities 01/07/2012 None memory loss Frequency of Episodes daily 01/07/2012 None memory loss Significant Medical Conditions other neurologic symptoms 01/07/2012 None memory loss Triggers no known associated factors 01/07/2012 None memory loss Pertinent Findings ataxia 01/07/2012 None memory loss Onset and Resolution sudden in onset 12/17/2011 None muscle weakness Location diffusely 12/17/2011 still having weak spells memory loss Limitation on Activities moderately limits activities 12/17/2011 None memory loss Onset of Symptom during adulthood 12/17/2011 None memory loss Onset of Symptom 2-3+ months ago 12/17/2011 None memory loss Frequency of Episodes daily 12/17/2011 None memory loss Significant Medical Conditions other neurologic symptoms 12/17/2011 None memory loss Triggers no known associated factors 12/17/2011 None memory loss Pertinent Findings ataxia 12/17/2011 None memory loss Pertinent Findings motor deficits 12/17/2011 None memory loss Pertinent Findings sensory deficits 12/17/2011 None memory loss Quality chronic 12/17/2011 None muscle weakness Onset and Resolution gradual in onset 12/17/2011 None muscle weakness Onset and Resolution worse during the day 12/17/2011 None muscle weakness Limitation on Activities moderately limits activities 12/17/2011 None muscle weakness Frequency of Episodes daily 12/17/2011 None muscle weakness Pertinent Findings anxiety 12/17/2011 None muscle weakness Pertinent Findings lethargy 12/17/2011 None muscle weakness Pertinent Findings Denies neck stiffness 12/17/2011 None muscle weakness Pertinent Findings Denies pain 12/17/2011 None muscle weakness Pertinent Findings Denies respiratory difficulties 12/17/2011 None muscle weakness Pertinent Findings Denies weight loss 12/17/2011 None mental status change Quality acute 12/10/2011 None mental status change Onset and Resolution sudden in onset 12/10/2011 brother states either he or the sister monitor his meds. they feel this is not a problem mental status change Quality confusion 12/10/2011 brother reports he is talking to people who have been for many years mental status change Quality disorientation 12/10/2011 mixing days up mental status change Quality lethargy 12/10/2011 sleeping a lot, not eating mental status change Onset of Symptom 1 weeks ago 12/10/2011 started falling, fell last night and brother reports speech has been slurred since then. States he has been falling for the past several weeks. mental status change Limitation on Activities moderately limits activities 12/10/2011 None mental status change Frequency of Episodes increasing 12/10/2011 None mental status change Significant Medical Conditions other neurologic symptoms 12/10/2011 None mental status change Triggers no known associated factors 12/10/2011 None memory loss Onset and Resolution gradual in onset 11/26/2011 None memory loss Onset of Symptom 1 years ago 11/26/2011 but more problems since june memory loss Limitation on Activities moderately limits activities 11/26/2011 None memory loss Frequency of Episodes daily 11/26/2011 None memory loss Significant Medical Conditions other neurologic symptoms 11/26/2011 None memory loss Triggers stress 11/26/2011 None memory loss Alleviating Factors rest 11/26/2011 None memory loss Pertinent Findings Denies ataxia 11/26/2011 None memory loss Pertinent Findings Denies hypersexuality 11/26/2011 None memory loss Pertinent Findings motor deficits 11/26/2011 None memory loss Pertinent Findings Denies personality changes 11/26/2011 None memory loss Quality chronic 11/26/2011 None memory loss Quality difficulty remembering names 11/26/2011 None memory loss Quality difficulty with calculations 11/26/2011 None memory loss Quality intermittent 11/26/2011 None Advance Directives No Advance Directive data Encounters Encounter Performer Location Codes Date 47747 EST. PATIENT, LEVEL III Diagnosis: Other schizophrenia[ICD10: F20.89] Diagnosis: Generalized anxiety disorder[ICD10: F41.1] Diagnosis: Major depressive disorder, single episode, moderate[ICD10: F32.1] Susan Vitale MD, [facility] CPT-4: 98624 11/05/2017 [id number] EST. PATIENT, LEVEL III Diagnosis: Encounter for follow-up examination after completed treatment for conditions other than malignant neoplasm[ICD10: Z09] Susan Vitale MD, [facility] CPT-4: 40107 12/18/2015 37409 EST. PATIENT, LEVEL IV Diagnosis: Cellulitis of right lower limb[ICD10: L03.115] Diagnosis: Vitamin B12 deficiency anemia due to intrinsic factor deficiency[ICD10: D51.0] Loren Vitale MD, [facility] CPT-4: 49220 12/04/2015 ([id number]) Miscellaneous no charge Diagnosis: Vitamin B deficiency, unspecified[ICD10: E53.9] Loren Vitale MD, [facility] CPT-4: 13641 07/31/2015 ([id number]) 15107 EST. PATIENT, LEVEL IV Diagnosis: Schizophrenia[ICD9: 295.90] Diagnosis: DEPRESSIVE DISORDER NEC[ICD9: 311] Diagnosis: Medication dose changed[ICD9: V58.69] Diagnosis: Leg pain[ICD9: 729.5] Loren Vitale MD, [facility] CPT-4: 67078 01/16/2015 ([id number]) 39512 EST. PATIENT, LEVEL III Diagnosis: Rash[ICD9: 782.1] Camille Vitale MD, [facility] CPT-4: 38481 08/02/2014 ([id number]) Miscellaneous no charge Diagnosis: SCHIZO NOS, CHRN[ICD9: 295.92] Loren Vitale MD, [facility] CPT-4: 64372 05/03/2013 ([id number]) 43425 EST. PATIENT, LEVEL III Diagnosis: Rash[ICD9: 782.1] Diagnosis: B-COMPLEX DEFIC NEC[ICD9: 266.2] Loren Vitale MD, [facility] CPT-4: 76392 09/30/2012 ([id number]) 76776 EST. PATIENT, LEVEL IV Diagnosis: SCHIZO NOS, CHRN[ICD9: 295.92] Diagnosis: DEMEN NOS W/O BEHV DSTRB[ICD9: 294.20] Loren Vitale MD, [facility] CPT-4: 95955 07/07/2012 ([id number]) 87472 EST. PATIENT, LEVEL IV Diagnosis: DEMEN NOS W/O BEHV DSTRB[ICD9: 294.20] Diagnosis: SCHIZO NOS, CHRN[ICD9: 295.92] Diagnosis: Vitamin B 12 deficiency[ICD9: 266.2] Loren Vitale MD, [facility] CPT- 4: 53872 01/07/2012 ([id number]) 40038 EST. PATIENT, LEVEL IV Diagnosis: DEMEN NOS W/O BEHV DSTRB[ICD9: 294.20] Diagnosis: ALTERED MENTAL STATUS[ICD9: 780.97] Diagnosis: Myalgia[ICD9: 729.1] Loren Vitale MD, [facility] CPT-4: 42099 12/17/2011 ([id number]) 28910 EST. PATIENT, LEVEL IV Diagnosis: Orthostatic hypotension[ICD9: 458.0] Diagnosis: Hypokalemia[ICD9: 276.8] Diagnosis: DEMEN NOS W/O BEHV DSTRB[ICD9: 294.20] Diagnosis: SCHIZO NOS, CHRN[ICD9: 295.92] Diagnosis: ALTERED MENTAL STATUS[ICD9: 780.97] Camille Vitale MD, [facility] CPT-4: 63241 12/10/2011 OFFICE/OUTPATIENT VISIT NEW Diagnosis: Schizophrenia, chronic condition[ICD9: 295.92] Diagnosis: Encounter for long-term (current) use of other high-risk medications[ICD9: V58.69] [facility] CPT-4: 47218 11/26/2011 Plan of Care Planned Activity Notes Codes Status Date Patient Education: Patient Medication Summary Completed 11/30/2018 Appointment: Injection 11/02/2018 Patient Education: Patient Medication Summary Completed 11/02/2018 Appointment: Injection 09/28/2018 Patient Education: Patient Medication Summary Completed 09/28/2018 Appointment: Injection 08/28/2018 Patient Education: Patient Medication Summary Completed 08/28/2018 Appointment: Injection 07/31/2018 Patient Education: Patient Medication Summary Completed 07/31/2018 Appointment: Injection 07/01/2018 Patient Education: Patient Medication Summary Completed 07/01/2018 Appointment: Injection 2018 Patient Education: Patient Medication Summary Completed 2018 Appointment: Injection 03/30/2018 Patient Education: Patient Medication Summary Completed 03/30/2018 Appointment: Injection 03/03/2018 Patient Education: Patient Medication Summary Completed 03/03/2018 Appointment: Injection 01/28/2018 Patient Education: Patient Medication Summary Completed 01/28/2018 Appointment: Injection 12/29/2017 Patient Education: Patient Medication Summary Completed 12/29/2017 Appointment: Injection 12/01/2017 Patient Education: Patient Medication Summary Completed 12/01/2017 Appointment: Injection 11/28/2017 Visit Plan: Schizophrenia - continue with chronic home medications - pt/brother is to notify clinic with any changes to current treatment plan. Chronic Depression and anxiety - the pt has symptoms of chronic anxiety and depression that have been fairly well controlled since the last office visit. The pt has expected periods of exacerbation with abatement of the symptoms with change in situational exposure. No change in current medications. 11/05/2017 App[facility]ment: [phone] [id number] [facility] 11/05/2017 Patient Education: Patient Medication Summary Completed 11/05/2017 Appointment: Injection 10/28/2017 Patient Education: Patient Medication Summary Completed 10/28/2017 Appointment: Injection 09/29/2017 Patient Education: Patient Medication Summary Completed 09/29/2017 Appointment: Injection 09/02/2017 Patient Education: Patient Medication Summary Completed 09/02/2017 Appointment: Injection 08/04/2017 Patient Education: Patient Medication Summary Completed 08/04/2017 Appointment: Injection 07/01/2017 Patient Education: Patient Medication Summary Completed 07/01/2017 Appointment: Injection 05/30/2017 Patient Education: Patient Medication Summary Completed 05/30/2017 Patient Education: Smoking and Tobacco Addiction Completed 05/30/2017 Appointment: Injection 2017 Patient Education: Patient Medication Summary Completed 2017 Patient Education: Smoking and Tobacco Addiction Completed 2017 Appointment: Injection 03/31/2017 Patient Education: Patient Medication Summary Completed 03/31/2017 Patient Education: Smoking and Tobacco Addiction Completed 03/31/2017 Appointment: Injection 02/28/2017 Patient Education: Patient Medication Summary Completed 02/28/2017 Patient Education: Smoking and Tobacco Addiction Completed 02/28/2017 Appointment: Injection 02/03/2017 Patient Education: Patient Medication Summary Completed 02/03/2017 Patient Education: Smoking and Tobacco Addiction Completed 02/03/2017 Appointment: Injection 12/30/2016 Patient Education: Patient Medication Summary Completed 12/30/2016 Patient Education: Smoking and Tobacco Addiction Completed 12/30/2016 Appointment: Injection 12/02/2016 Patient Education: Patient Medication Summary Completed 12/02/2016 Patient Education: Smoking and Tobacco Addiction Completed 12/02/2016 Appointment: Injection 10/29/2016 Patient Education: Patient Medication Summary Completed 10/29/2016 Patient Education: Smoking and Tobacco Addiction Completed 10/29/2016 Appointment: Injection 10/01/2016 Patient Education: Patient Medication Summary Completed 10/01/2016 Patient Education: Smoking and Tobacco Addiction Completed 10/01/2016 Appointment: Injection 09/02/2016 Patient Education: Patient Medication Summary Completed 09/02/2016 Patient Education: Smoking and Tobacco Addiction Completed 09/02/2016 Appointment: Injection 08/05/2016 Patient Education: Patient Medication Summary Completed 08/05/2016 Patient Education: Smoking and Tobacco Addiction Completed 08/05/2016 Appointment: Injection 07/02/2016 Patient Education: Patient Medication Summary Completed 07/02/2016 Patient Education: Smoking and Tobacco Addiction Completed 07/02/2016 Appointment: Injection 06/03/2016 Patient Education: Patient Medication Summary Completed 06/03/2016 Patient Education: Smoking and Tobacco Addiction Completed 06/03/2016 Appointment: Injection 2016 Patient Education: Patient Medication Summary Completed 2016 Patient Education: Smoking and Tobacco Addiction Completed 2016 Appointment: Injection 04/01/2016 Patient Education: Patient Medication Summary Completed 04/01/2016 Patient Education: Smoking and Tobacco Addiction Completed 04/01/2016 Appointment: Injection 03/05/2016 Patient Education: Patient Medication Summary Completed 03/05/2016 Patient Education: Smoking and Tobacco Addiction Completed 03/05/2016 Appointment: Injection 01/29/2016 Patient Education: Patient Medication Summary Completed 01/29/2016 Patient Education: Smoking and Tobacco Addiction Completed 01/29/2016 Appointment: Injection 01/02/2016 Patient Education: Patient Medication Summary Completed 01/02/2016 Patient Education: Smoking and Tobacco Addiction Completed 01/02/2016 Visit Plan: Abscess/Cellulitis - right inner thigh lesion resolved - The patient is to call for any change in symptoms, increase in size of the lesion, increase in pain. 12/18/2015 App[facility]ment: [phone] [id number] (30 min) [facility] 12/18/2015 Patient Education: Patient Medication Summary Completed 12/18/2015 Patient Education: Smoking and Tobacco Addiction Completed 12/18/2015 Visit Plan: Abscess/Cellulitis - The patient was instructed in appropriate wound care. The patient was instructed to use the antibiotic ointment as per RX. The patient is to call for any change in symptoms, increase in size of the lesion, increase in pain. 12/04/2015 Appointment: Susan Rudd [facility] [phone] [id number] [place] (10 min) Simple 12/04/2015 Patient Education: Patient Medication Summary Completed 12/04/2015 Patient Education: Smoking and Tobacco Addiction Completed 12/04/2015 Appointment: Injection 10/30/2015 Patient Education: Patient Medication Summary Completed 10/30/2015 Patient Education: Smoking and Tobacco Addiction Completed 10/30/2015 Visit Plan: Medicare Exam - today we discussed the patients past history, immunizations, preventative exams/evaluations - colonoscopy, fecal occult blood testing, routine labs for renal function, glucose, cholesterol, osteoporosis evaluations, cardiovascular testing and cancer screenings. We have also discussed mental health and the signs/symptoms of depression. The patient was advised of home safety evaluations and the need to make sure that as the aging process continues, we need to be aware of different ways to make the home a safer place to reside. The patient has also been counseled that exercise is necessary - and of utmost importance as we age to help decrease fall risk and to maintain independece in the home. Today we discussed the need for the patient to create paperwork for Advanced directives as well as for the patient to provide this office with a copy of her DOPA paperwork for health care surrogate. 10/11/2015 Appointment: [facility] - Annual Wellness Visit 10/11/2015 Patient Education: Patient Medication Summary Completed 10/11/2015 Patient Education: Smoking and Tobacco Addiction Completed 10/11/2015 Appointment: Injection 10/02/2015 Patient Education: Patient Medication Summary Completed 10/02/2015 Patient Education: Smoking and Tobacco Addiction Completed 10/02/2015 Appointment: Injection 08/29/2015 Patient Education: Patient Medication Summary Completed 08/29/2015 Appointment: Injection 07/31/2015 Patient Education: Patient Medication Summary Completed 07/31/2015 Patient Education: Patient Medication Summary Completed 07/31/2015 Appointment: Injection 07/03/2015 Patient Education: Patient Medication Summary Completed 07/03/2015 Appointment: Nurse Visit 06/05/2015 Patient Education: Patient Medication Summary Completed 06/05/2015 Appointment: Injection 05/01/2015 Patient Education: Patient Medication Summary Completed 05/01/2015 Patient Education: Patient Medication Summary Completed 04/03/2015 Patient Education: Patient Medication Summary Completed 02/28/2015 Patient Education: Patient Medication Summary Completed 01/30/2015 Visit Plan: Schizophrenia - continue with chronic home medications - the pt's anaframil, clonazepam, cogentin, rispherdone, stelazine. Depression - uncontrolled - recommended increase of Wellbutrin to 100mg at bedtime and 200mg in the morning. Leg pain - need to check labs. 01/16/2015 Appointment: Loren Vitale WPtel: [facility] (15 min) Moderate 01/16/2015 Patient Education: Patient Medication Summary Completed 01/16/2015 Appointment: Injection 01/02/2015 Patient Education: Patient Medication Summary Completed 01/02/2015 Patient Education: Patient Medication Summary Completed 11/28/2014 Patient Education: Patient Medication Summary Completed 10/31/2014 Patient Education: Patient Medication Summary Completed 10/03/2014 Patient Education: Patient Medication Summary Completed 08/30/2014 Visit Plan: Ulou-rmktnhqk-vuvbcdhepmava cream to affected area twice daily as directed-call if rash does not completely resolve B12 deficiency-B12 injection today in the office 08/02/2014 Appointment: [facility] [phone] [facility] [place] Sick 08/02/2014 Patient Education: Patient Medication Summary Completed 08/02/2014 Patient Education: Patient Medication Summary Completed 07/04/2014 Patient Education: Patient Medication Summary Completed 05/30/2014 Appointment: [facility]el[facility] [phone] [facility] [place] Injection 05/02/2014 Patient Education: Patient Medication Summary Completed 05/02/2014 Patient Education: Patient Medication Summary Completed 04/05/2014 Appointment: Camille Devi WPtel: [phone] [facility] [place] Injection 03/07/2014 Patient Education: Patient Medication Summary Completed 03/07/2014 Appointment: [facility]Ptel[facility] [phone] [facility] [place] Injection 02/01/2014 Patient Education: Patient Medication Summary Completed 02/01/2014 Appointment: [facility]Ptel[facility] [phone] [facility] [place] Injection 12/30/2013 Patient Education: Patient Medication Summary Completed 12/30/2013 Appointment: Loren [facility]ale [facility]Ptel: [phone] [facility] [place] Injection 11/30/2013 Patient Education: Patient Medication Summary Completed 11/30/2013 Appointment: Camille Devi WPtel: [phone] [facility] [place] Injection 11/02/2013 Patient Education: Patient Medication Summary Completed 11/02/2013 Appointment: [facility]Ptel[facility] [phone] [facility] [place] Injection 09/28/2013 Appointment: Loren [facility]ale [facility]Ptel[facility] [phone] [facility] [place] Injection 08/31/2013 Patient Education: Patient Medication Summary Completed 08/31/2013 Patient Education: Patient Medication Summary Completed 08/04/2013 Appointment: [facility]Ptel[facility] [phone] [facility] [place] Injection 08/03/2013 Appointment: Loren [facility]ale [facility]Ptel: [phone] [facility] [place] Injection 07/06/2013 Patient Education: Patient Medication Summary Completed 07/06/2013 Appointment: [phone] [facility] [place] Injection 05/31/2013 Patient Education: Patient Medication Summary Completed 05/31/2013 Appointment: [phone] [facility] [place] Injection 05/04/2013 Patient Education: Patient Medication Summary Completed 05/04/2013 Visit Plan: Discussed with Rubén that Juan does indeed need a new psychiatrist. From the list that Rubén has reviewed, he has requested that Dr. Randell Pedraza be contacted to see if there is room in Dr. Pedraza's practice for a new patient. Since Juan is extremely stable on his medications and is quite high functioning for a schizophrenic patient, I am hopeful that finding a new physician for Juan will not be a difficult task. We will call Rubén or his sister when Juan's appointment has been made with his new psychiatrist. 05/03/2013 Appointment: Loren Vitale [facility]Ptel: [phone] [facility] [place] Other 05/03/2013 Patient Education: Patient Medication Summary Completed 05/03/2013 Appointment: [facility] [phone] [facility] [place] Injection 03/30/2013 Patient Education: Patient Medication Summary Completed 03/30/2013 Visit Plan: Vascular Dementia - Pt with slowly progressive pattern. I have discussed with pt and family the prognosis of this disease state and the need for the family to anticipate further decline with behavior changes. Continue with current plan of treatment. Schizophrenia - pt to continue with his current medications. He is to see Dr. Trevi[facility] at [facility]. 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 03/02/2013 Appointment: Loren Vitale [facility]Ptel: [phone] [facility] Follow up 03/02/2013 Patient Education: Patient Medication Summary Completed 03/02/2013 Appointment: Loren Vitale [facility]Ptel: [phone] [facility] [place] Injection 02/02/2013 Patient Education: Patient Medication Summary Completed 02/02/2013 Patient Education: Patient Medication Summary Completed 12/29/2012 Appointment: Cam[facility]el[facility] [phone] [facility] [place] Injection 12/01/2012 Patient Education: Patient Medication Summary Completed 12/01/2012 Appointment: Loren Vitale [facility]Ptel: [phone] [facility] [place] Injection 11/03/2012 Patient Education: Patient Medication Summary Completed 11/03/2012 Visit Plan: Rash-discussed natural and expected course of this diagnosis and to alert me if symptoms do not follow expected course, or if any worse. RX sent to patient's pharmacy and instructed on use. B12 def-injection today in the office 09/30/2012 Appointment: Loren Vitale [facility]Ptel: [phone] [facility] [place] Other 09/30/2012 Patient Education: Patient Medication Summary Completed 09/30/2012 Patient Education: Patient Medication Summary Completed 09/08/2012 Appointment: [facility]el[facility] [phone] [facility] [place] Injection 08/25/2012 Patient Education: Patient Medication Summary Completed 08/25/2012 Appointment: Loren Vitale [facility]Ptel: [phone] [facility] [place] Injection 08/11/2012 Patient Education: Patient Medication Summary Completed 08/11/2012 Appointment: Loren Vitale [facility]Ptel: [phone] [facility] [place] Injection 07/21/2012 Patient Education: Patient Medication Summary Completed 07/21/2012 Visit Plan: Vascular Dementia - Pt with slowly progressive pattern. I have discussed with pt and family the prognosis of this disease state and the need for the family to anticipate further decline with behavior changes. Continue with current plan of treatment. Schizophrenia - pt to continue with his current medications. He is to see Dr. Trevi[facility] at [facility]. 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 07/07/2012 Appointment: Loren Vitale [facility]Ptel: [phone] [facility] [place] Follow up 07/07/2012 Patient Education: Patient Medication Summary Completed 07/07/2012 Patient Education: Patient Medication Summary Completed 06/25/2012 Patient Education: Patient Medication Summary Completed 06/09/2012 Patient Education: Patient Medication Summary Completed 05/25/2012 Appointment: Loren Vitale [facility]Ptel: [phone] [facility] [place] Injection 05/12/2012 Patient Education: Patient Medication Summary Completed 05/12/2012 Patient Education: Patient Medication Summary Completed 04/20/2012 Appointment: Camille Devi [facility]el[facility] [phone] [facility] [place] Injection 04/07/2012 Patient Education: Patient Medication Summary Completed 04/07/2012 Appointment: Cam[facility] Devi [facility]el[facility] [phone] [facility] [place] Injection 03/24/2012 Appointment: Camille Devi [facility]Ptel[facility] [phone] [phone] [place] Injection 03/10/2012 Patient Education: Patient Medication Summary Completed 03/10/2012 Appointment: Loren Vitale [facility]Ptel: [phone] [facility] [place] Injection 02/18/2012 Patient Education: Patient Medication Summary Completed 02/18/2012 Appointment: Iam Loren [facility]Ptel: [phone] [facility] [place] Injection 02/04/2012 Patient Education: Patient Medication Summary Completed 02/04/2012 Appointment: Veronica Vitaley [facility]Ptel: [phone] [facility] [place] Injection 01/21/2012 Patient Education: Patient Medication Summary Completed 01/21/2012 Visit Plan: Vascular Dementia - Pt with slowly progressive pattern. I have discussed with pt and family the prognosis of this disease state and the need for the family to anticipate further decline with behavior changes. Continue with current plan of treatment. Schisophrenia - pt to continue with his current medications. He is need of a new psychiatrist, his brother has been given information about different options in this region. B 12 deficiency and folate deficiency - pt is to continue with IM injections for another 2 months while taking oral supplementation, then will see if only oral supplementation will be enough for Juan, or if he will need the IM injections to keep his B12 levels at normal. 01/07/2012 Appointment: Loren Vitale [facility]Ptel: [phone] [facility] [place] Other 01/07/2012 Patient Education: Patient Medication Summary Completed 01/07/2012 Visit Plan: Pt's brother was explained to that his medications may be building up to levels that are causing Juan to have more muscle weakness, sleepiness, and cause him to fall more due to grogginess. I have rec ommended to not take his largest dose of the risperdone in the morning, but to take the largest dose in the evening. Vitamin B deficiency with peripheral neuropathy symptoms - I have recommended pt to start on oral b12, but to also start on b12 shots twice monthly. Memory loss - mri of the brain to be scheduled. I will attempt to get ahold of Juan's psychiatrist who is in [place], but he is apparently on vacation to the [facility] and may not respond until he gets back in December. I think that Juan's medications need adjusted and that is the largest part of his new symptoms. 12/17/2011 Appointment: Loren Vitale WPtel: [phone] [facility] [place] Other 12/17/2011 Patient Education: Patient Medication Summary Completed 12/17/2011 Visit Plan: Hypotension-discussed natural and expected course of this diagnosis and to alert me if symptoms do not follow expected course, or if any worse. Change positions slowly-pump legs for 1 minute before getting out of bed or a chair. Low potassium-check labs-if continues to be low, recommend potassium supplementation. Dementia with Behaviors-schizophrenia -altered mental status- I have discussed this patient's case with the pt and available family. The patient is on medication which appears to be controlling the worst of the symptoms. However, he is on several medications and is taking them all at one ti me per day-several of the medications are to be dosed 2 or 3 times daily-I suspect that part of his issues are that he is taking these medications inappropriately. I have discussed with his brother that he is to at a minimum, he is to take the medications in 2 divided doses. Plan to also check a B12 level and proceed as indicated. Discussed with patient's brother that patient needs some in home assistance to ensure that he is getting his medications twice daily and also to assist with other activities as needed. Instructed brother to call [employer] and speak with them about assistance. Doctor's eval of the patient - I, Dr. Vitale, personally evaluated the patient with the nurse practicioner. I have reviewed the patient's chart, I have reviewed the patient's past medical history, problem list, medication list, and personal history. I agree with the documentation by the nurse practicioner in the HPI, physical exam, and the assessment and plan. 12/10/2011 Visit Plan: Hypotension-discussed natural and expected course of this diagnosis and to alert me if symptoms do not follow expected course, or if any worse. Change positions slowly-pump legs for 1 minute before getting out of bed or a chair. Low potassium-check labs-if continues to be low, recommend potassium supplementation. Dementia with Behaviors-schizophrenia -altered mental status- I have discussed this patient's case with the pt and available family. The patient is on medication which appears to be controlling the worst of the symptoms. However, he is on several medications and is taking them all at one ti me per day-several of the medications are to be dosed 2 or 3 times daily-I suspect that part of his issues are that he is taking these medications inappropriately. I have discussed with his brother that he is to at a minimum, he is to take the medications in 2 divided doses. Plan to also check a B12 level and proceed as indicated. Discussed with patient's brother that patient needs some in home assistance to ensure that he is getting his medications twice daily and also to assist with other activities as needed. Instructed brother to call [employer] and speak with them about assistance. 12/10/2011 Appointment: Camille Devi [facility]Ptel[facility] [phone] [facility] [facility]-in 12/10/2011 Patient Education: Patient Medication Summary Completed 12/10/2011 Visit Plan: Dementia with Behaviors - I have discussed this patient's case with the pt and available family. The patient is on medication which appears to be controlling the worst of the symptoms. I have not recomm ended a change to the regimen at this time, but will continue to closely monitor the medications for effecitveness. Pt has Schixophrenia - he is on several medications for treatment of his problems. I have run an interaction tracker and NAMENDA does NOT interact with any of his psychiatric medications. I would therefore recommend starting on the namenda, with the understanding that this medication may initially cause some nightmares, but the current medications he is taking should hopefully prevent the nightmares. However, I would [facility] namenda. His UA was negative. Time based documentation -I spent over 60 minutes with the patient in discussion of the disease process, expected course, and overall prognosis for the patient's disease state. The patient/family expressed understanding. 11/26/2011 Appointment: Loren Vitale [facility]Ptel[facility] [phone] [facility] [facility] Patient 11/26/2011 Patient Education: Patient Medication Summary Completed 11/26/2011 Instructions Comment . Vascular Dementia - Pt with slowly progressive pattern. I have discussed with pt and family the prognosis of this disease state and the need for the family to anticipate further decline with behavior changes. Continue with current plan of treatment. Schizophrenia - pt to continue with his current medications. He is to see Dr. Trevi[facility] at [facility]. 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 . Dementia with Behaviors - I have discussed this patient's case with the pt and available family. The patient is on medication which appears to be controlling the worst of the symptoms. I have not recommended a change to the regimen at this time, but will continue to closely monitor the medications for effecitveness. Pt has Schixophrenia - he is on several medications for treatment of his problems. I have run an interaction tracker and NAMENDA does NOT interact with any of his psychiatric medications. I would therefore recommend starting on the namenda, with the understanding that this medication may initially cause some nightmares, but the current medications he is taking should hopefully prevent the nightmares. However, I would prefer to first [facility] to starting on the namenda. His UA was negative. Time based documentation -I spent over 60 minutes with the patient in discussion of the disease process, expected course, and overall prognosis for the patient's disease state. The patient/family expressed understanding. . Pt's brother was explained to that his medications may be building up to levels that are causing Juan to have more muscle weakness, sleepiness, and cause him to fall more due to grogginess. I have recommended to not take his largest dose of the risperdone in the morning, but to take the largest dose in the evening. Vitamin B deficiency with peripheral neuropathy symptoms - I have recommended pt to start on oral b12, but to also start on b12 shots twice monthly. Memory loss - mri of the brain to be scheduled. I will attempt to get rosa of Juan's psychiatrist who is in [place], but he is apparently on vacation to the [facility] and may not respond until he gets back in December. I think that Juan's medications need adjusted and that is the largest part of his new symptoms. . Urhu-bpbbuojq-iurqxtrnqckyt cream to affected area twice daily as directed-call if rash does not completely resolve B12 deficiency-B12 injection today in the office . Rash-discussed natural and expected course of this diagnosis and to alert me if symptoms do not follow expected course, or if any worse. RX sent to patient's pharmacy and instructed on use. B12 def-injection today in the office . Schizophrenia - continue with chronic home medications - pt/brother is to notify clinic with any changes to current treatment plan. Chronic Depression and anxiety - the pt has symptoms of chronic anxiety and depression that have been fairly well controlled since the last office visit. The pt has expected periods of exacerbation with abatement of the symptoms with change in situational exposure. No change in current medications. . Hypotension-discussed natural and expected course of this diagnosis and to alert me if symptoms do not follow expected course, or if any worse. Change positions slowly-pump legs for 1 minute before getting out of bed or a chair. Low potassium-check labs-if continues to be low, recommend potassium supplementation. Dementia with Behaviors-schizophrenia -altered mental status- I have discussed this patient's case with the pt and available family. The patient is on medication which appears to be controlling the worst of the symptoms. However, he is on several medications and is taking them all at one time per day-several of the medications are to be dosed 2 or 3 times daily-I suspect that part of his issues are that he is taking these medications inappropriately. I have discussed with his brother that he is to at a minimum, he is to take the medications in 2 divided doses. Plan to also check a B12 level and proceed as indicated. Discussed with patient's brother that patient needs some in home assistance to ensure that he is getting his medications twice daily and also to assist with other activities as needed. Instructed brother to call [employer] and speak with them about assistance. Doctor's eval of the patient - I, Dr. Vitale, personally evaluated the patient with the nurse practicioner. I have reviewed the patient's chart, I have reviewed the patient's past medical history, problem list, medication list, and personal history. I agree with the documentation by the nurse practicioner in the HPI, physical exam, and the assessment and plan. Recommend [employer] worker to assist with daily activities. Recommend taking medications at a minimal twice daily-it is unsafe to take all the medications at once. Potassium low in October-recheck labs-chem panel, cpk, b12 level. . Hypotension-discussed natural and expected course of this diagnosis and to alert me if symptoms do not follow expected course, or if any worse. Change positions slowly-pump legs for 1 minute before getting out of bed or a chair. Low potassium-check labs-if continues to be low, recommend potassium supplementation. Dementia with Behaviors-schizophrenia -altered mental status- I have discussed this patient's case with the pt and available family. The patient is on medication which appears to be controlling the worst of the symptoms. However, he is on several medications and is taking them all at one time per day-several of the medications are to be dosed 2 or 3 times daily-I suspect that part of his issues are that he is taking these medications inappropriately. I have discussed with his brother that he is to at a minimum, he is to take the medications in 2 divided doses. Plan to also check a B12 level and proceed as indicated. Discussed with patient's brother that patient needs some in home assistance to ensure that he is getting his medications twice daily and also to assist with other activities as needed. Instructed brother to call [employer] and speak with them about assistance. . Abscess/Cellulitis - right inner thigh lesion resolved - The patient is to call for any change in symptoms, increase in size of the lesion, increase in pain. . Vascular Dementia - Pt with slowly progressive pattern. I have discussed with pt and family the prognosis of this disease state and the need for the family to anticipate further decline with behavior changes. Continue with current plan of treatment. Schisophrenia - pt to continue with his current medications. He is need of a new psychiatrist, his brother has been given information about different options in this region. B 12 deficiency and folate deficiency - pt is to continue with IM injections for another 2 months while taking oral supplementation, then will see if only oral supplementation will be enough for Juan, or if he will need the IM injections to keep his B12 levels at normal. . Abscess/Cellulitis - The patient was instructed in appropriate wound care. The patient was instructed to use the antibiotic ointment as per RX. The patient is to call for any change in symptoms, increase in size of the lesion, increase in pain. . Vascular Dementia - Pt with slowly progressive pattern. I have discussed with pt and family the prognosis of this disease state and the need for the family to anticipate further decline with behavior changes. Continue with current plan of treatment. Schizophrenia - pt to continue with his current medications. He is to see Dr. Treviño at [facility]. 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 . Medicare Exam - today we discussed the patients past history, immunizations, preventative exams/evaluations - colonoscopy, fecal occult blood testing, routine labs for renal function, glucose, cholesterol, osteoporosis evaluations, cardiovascular testing and cancer screenings. We have also discussed mental health and the signs/symptoms of depression. The patient was advised of home safety evaluations and the need to make sure that as the aging process continues, we need to be aware of different ways to make the home a safer place to reside. The patient has also been counseled that exercise is necessary - and of utmost importance as we age to help decrease fall risk and to maintain independece in the home. Today we discussed the need for the patient to create paperwork for Advanced directives as well as for the patient to provide this office with a copy of her [employer] paperwork for health care surrogate. . Discussed with Rubén that Juan does indeed need a new psychiatrist. From the list that Rubén has reviewed, he has requested that Dr. Randell Pedraza be contacted to see if there is room in Dr. Pedraza's practice for a new patient. Since Juan is extremely stable on his medications and is quite high functioning for a schizophrenic patient, I am hopeful that finding a new physician for Juan will not be a difficult task. We will call Rubén or his sister when Juan's appointment has been made with his new psychiatrist. . Schizophrenia - continue with chronic home medications - the pt's anaframil, clonazepam, cogentin, rispherdone, stelazine. Depression - uncontrolled - recommended increase of Wellbutrin to 100mg at bedtime and 200mg in the morning. Leg pain - need to check labs.
--- OUTSIDE RECORDS SUMMARY | 2018-12-22 15:39 | XMS REPORT | CCD ---
Author Author Loren Vitale MD, [facility] Address [address] [place] [address] Phone Care Team Providers Care Complementary Health Therapists Name Role Phone PP Unavailable CCM Unavailable Summary Purpose Interface Exchange Insurance Providers Payer name Policy type / Coverage type Covered republican ID Effective Begin Date Effective End Date WPS Medicare Part B Medicare Part B [id number] Unknown [place] [employer] Medicare Part B [id number] Unknown Family history Sister Diagnosis Age At Onset No Family Disease Entered N/A First cousin Diagnosis Age At Onset No Family Disease Entered N/A Mother Diagnosis Age At Onset Dementia Unknown Social History Social History Element Codes Description Effective Dates Marital status Unknown Single 11/26/[address]: 95496233 Current every day smoker 2 packs daily 11/26/[address]: 150432930 Never drinks alcohol 11/26/2011 Has the patient [...] Onset Date Resolved Date Vitamin B12 deficiency anemia, unspecified ICD-9: 281.1 ICD-10: D51.9 Active 2015 Unknown Other vitamin B12 deficiency anemias ICD-9: 281.1 ICD-10: D51.8 Active 06/02/2016 Unknown Vitamin B12 deficiency anemia due to intrinsic factor deficiency ICD-9: 281.0 ICD-10: D51.0 Active 07/01/2016 Unknown Encounter for immunization ICD-9: V04.81 ICD-10: [...] Effective Dates Condition Status Vitamin B12 deficiency anemia, unspecified ICD-9: 281.1 ICD-10: D51.9 2015 Active Other vitamin B12 deficiency anemias ICD-9: 281.1 ICD-10: D51.8 06/02/2016 Active Vitamin B12 deficiency anemia due to intrinsic factor deficiency ICD-9: 281.0 ICD-10: D51.0 07/01/2016 Active Encounter for immunization ICD-9: V04.81 ICD-10: [...] (vit B-12) 1,000 mcg/mL injection solution RxNorm: 285612 Milliliter(s) Inj 11/02/2018 11/02/2018 Inactive cyanocobalamin (vit B-12) 1,000 mcg/mL injection solution RxNorm: 356041 Milliliter(s) Inj 09/28/2018 09/28/2018 Inactive Wellbutrin SR 100 mg tablet, 12 hr sustained-release RxNorm: 004531 Tablet(s) TAKE ONE TABLET BY MOUTH EVERY NIGHT AT BEDTIME 09/07/2018 03/05/2019 Active cyanocobalamin (vit B-12) 1,000 mcg/mL injection solution RxNorm: 220336 Milliliter(s) Inj 08/28/2018 08/28/2018 Inactive cyanocobalamin (vit B-12) 1,000 mcg/mL injection solution RxNorm: 578288 Milliliter(s) Inj 07/31/2018 07/31/2018 Inactive cyanocobalamin (vit B-12) 1,000 mcg/mL injection solution RxNorm: 785871 Milliliter(s) Inj 07/01/2018 07/01/2018 Inactive cyanocobalamin (vit B-12) 1,000 mcg/mL injection solution RxNorm: 340585 Milliliter(s) Inj 2018 2018 Inactive Wellbutrin SR 100 mg tablet, 12 hr sustained-release RxNorm: 828674 TAKE ONE TABLET BY MOUTH EVERY NIGHT AT BEDTIME 04/28/2018 10/23/2018 Inactive cyanocobalamin (vit B-12) 1,000 mcg/mL injection solution RxNorm: 566619 Milliliter(s) Inj 03/30/2018 03/30/2018 Inactive cyanocobalamin (vit B-12) 1,000 mcg/mL injection solution RxNorm: 254669 1 Milliliter(s) Inj 03/03/2018 03/03/2018 Inactive cyanocobalamin (vit B-12) 1,000 mcg/mL injection solution RxNorm: 681521 1 Milliliter(s) Inj 01/28/2018 01/28/2018 Inactive cyanocobalamin (vit B-12) 1,000 mcg/mL injection solution RxNorm: 279332 Milliliter(s) Inj 12/29/2017 12/29/2017 Inactive cyanocobalamin (vit B-12) 1,000 mcg/mL injection solution RxNorm: 299140 1 Milliliter(s) Inj 12/01/2017 12/01/2017 Inactive Wellbutrin SR 100 mg tablet, 12 hr sustained-release RxNorm: 204409 TAKE ONE TABLET BY MOUTH EVERY NIGHT AT BEDTIME 10/28/2017 04/25/2018 Inactive cyanocobalamin (vit B-12) 1,000 mcg/mL injection solution RxNorm: 898475 1 Milliliter(s) Inj 10/28/2017 10/28/2017 Inactive cyanocobalamin (vit B-12) 1,000 mcg/mL injection solution RxNorm: 285774 Milliliter(s) Inj 09/29/2017 09/29/2017 Inactive cyanocobalamin (vit B-12) 1,000 mcg/mL injection solution RxNorm: 280281 Milliliter(s) Inj 09/02/2017 09/02/2017 Inactive cyanocobalamin (vit B-12) 1,000 mcg/mL injection solution RxNorm: 557206 Milliliter(s) Inj 08/04/2017 08/04/2017 Inactive cyanocobalamin (vit B-12) 1,000 mcg/mL injection solution RxNorm: 666806 1 Milliliter(s) Inj 07/01/2017 07/01/2017 Inactive cyanocobalamin (vit B-12) 1,000 mcg/mL injection solution RxNorm: 292503 Milliliter(s) Inj 05/30/2017 05/30/2017 Inactive cyanocobalamin (vit B-12) 1,000 mcg/mL injection solution RxNorm: 375824 1 Milliliter(s) Inj 2017 2017 Inactive Wellbutrin SR 100 mg tablet, 12 hr sustained-release RxNorm: 248414 TAKE ONE TABLET BY MOUTH EVERY NIGHT AT BEDTIME 04/23/2017 10/19/2017 Inactive cyanocobalamin (vit B-12) 1,000 mcg/mL injection solution RxNorm: 607416 Milliliter(s) Inj 03/31/2017 03/31/2017 Inactive cyanocobalamin (vit B-12) 1,000 mcg/mL injection solution RxNorm: 119701 Milliliter(s) Inj 02/28/2017 02/28/2017 Inactive cyanocobalamin (vit B-12) 1,000 mcg/mL injection solution RxNorm: 115567 Milliliter(s) Inj 02/03/2017 02/03/2017 Inactive cyanocobalamin (vit B-12) 1,000 mcg/mL injection solution RxNorm: 673599 1 Milliliter(s) Inj 12/30/2016 12/30/2016 Inactive cyanocobalamin (vit B-12) 1,000 mcg/mL injection solution RxNorm: 245659 1 Milliliter(s) Inj 12/02/2016 12/02/2016 Inactive Wellbutrin SR 100 mg tablet, 12 hr sustained-release RxNorm: 742343 TAKE ONE TABLET BY MOUTH EVERY NIGHT AT BEDTIME 10/30/2016 04/22/2017 Inactive cyanocobalamin (vit B-12) 1,000 mcg/mL injection solution RxNorm: 433370 Milliliter(s) Inj 10/29/2016 10/29/2016 Inactive cyanocobalamin (vit B-12) 1,000 mcg/mL injection solution RxNorm: 819988 1 Milliliter(s) Inj 10/01/2016 10/01/2016 Inactive cyanocobalamin (vit B-12) 1,000 mcg/mL injection solution RxNorm: 128177 Milliliter(s) Inj 09/02/2016 09/02/2016 Inactive cyanocobalamin (vit B-12) 1,000 mcg/mL injection solution RxNorm: 327961 Milliliter(s) Inj 08/05/2016 08/05/2016 Inactive cyanocobalamin (vit B-12) 1,000 mcg/mL injection solution RxNorm: 056032 1 Milliliter(s) Inj 07/02/2016 07/02/2016 Inactive cyanocobalamin (vit B-12) 1,000 mcg/mL injection solution RxNorm: 844249 Milliliter(s) Inj 06/03/2016 06/03/2016 Inactive cyanocobalamin (vit B-12) 1,000 mcg/mL injection solution RxNorm: 091313 Milliliter(s) Inj 2016 2016 Inactive Wellbutrin SR 100 mg tablet,sustained-release RxNorm: 193727 1 Tablet(s) PO QHS 04/01/2016 10/27/2016 Inactive cyanocobalamin (vit B-12) 1,000 mcg/mL injection solution RxNorm: 685460 Milliliter(s) Inj 04/01/2016 04/01/2016 Inactive cyanocobalamin (vit B-12) 1,000 mcg/mL injection solution RxNorm: 907129 1 Milliliter(s) Inj 03/05/2016 03/05/2016 Inactive cyanocobalamin (vit B-12) 1,000 mcg/mL injection solution RxNorm: 033574 Milliliter(s) Inj 01/29/2016 01/29/2016 Inactive cyanocobalamin (vit B-12) 1,000 mcg/mL injection solution RxNorm: 450377 Milliliter(s) Inj 01/02/2016 01/02/2016 Inactive mupirocin 2 % topical ointment RxNorm: 784423 1 Application TOP BID 12/04/2015 No Stop Date Active doxycycline hyclate 100 mg capsule RxNorm: 0275939 1 Capsule(s) PO BID 12/04/2015 12/13/2015 Inactive cyanocobalamin (vit B-12) 1,000 mcg/mL injection solution RxNorm: 029110 Milliliter(s) Inj 10/30/2015 10/30/2015 Inactive cyanocobalamin (B12)-cobamamide 5,000 mcg-100 mcg sublingual tablet RxNorm: 454372 Tablet(s) SL 10/02/2015 10/02/2015 Inactive Wellbutrin SR 100 mg tablet,sustained-release RxNorm: 783205 1 Tablet(s) PO QHS 09/08/2015 03/31/2016 Inactive cyanocobalamin (vit B-12) 1,000 mcg/mL injection solution RxNorm: 089188 Milliliter(s) Inj 08/29/2015 08/29/2015 Inactive cyanocobalamin (vit B-12) 1,000 mcg/mL injection solution RxNorm: 700912 Milliliter(s) Inj 07/31/2015 07/31/2015 Inactive cyanocobalamin (vit B-12) 1,000 mcg/mL injection solution RxNorm: 508193 Milliliter(s) Inj 06/05/2015 06/05/2015 Inactive cyanocobalamin (vit B-12) 1,000 mcg/mL injection solution RxNorm: 303699 Milliliter(s) Inj 05/01/2015 05/01/2015 Inactive cyanocobalamin (vit B-12) 1,000 mcg/mL injection solution RxNorm: 732535 Milliliter(s) Inj 04/03/2015 04/03/2015 Inactive cyanocobalamin (vit B-12) 1,000 mcg/mL injection solution RxNorm: 485475 Milliliter(s) Inj 02/28/2015 02/28/2015 Inactive cyanocobalamin (vit B-12) 1,000 mcg/mL injection solution RxNorm: 608744 Milliliter(s) Inj 01/30/2015 01/30/2015 Inactive Wellbutrin SR 100 mg tablet,sustained-release RxNorm: 125916 1 Tablet(s) PO QHS 01/16/2015 08/13/2015 Inactive cyanocobalamin (vit B-12) 1,000 mcg/mL injection solution RxNorm: 365567 1 Milliliter(s) Inj 01/02/2015 01/02/2015 Inactive cyanocobalamin (vit B-12) 1,000 mcg/mL injection solution RxNorm: 043363 1 Milliliter(s) Inj 11/28/2014 11/28/2014 Inactive cyanocobalamin (vit B-12) 1,000 mcg/mL injection solution RxNorm: 171349 Milliliter(s) Inj 10/31/2014 10/31/2014 Inactive [SAVINGS FOR NON-COVERED DRUGS -- BIN:202547, PCN: [id number], Group: XXXXX, ID# [id number], Questions: . THIS IS NOT INSURANCE.] cyanocobalamin (vit B-12) 1,000 mcg/mL injection solution RxNorm: 609798 1 Milliliter(s) Inj daily 10/03/2014 10/03/2014 Inactive [SAVINGS FOR NON-COVERED DRUGS -- BIN:127892, PCN: ASPROD1, Group: XXXXX, ID# [id number], Questions: . THIS IS NOT INSURANCE.] cyanocobalamin (vit B-12) 1,000 mcg/mL injection solution RxNorm: 975695 Milliliter(s) Inj 08/30/2014 08/30/2014 Inactive [SAVINGS FOR NON-COVERED DRUGS -- BIN:523412, PCN: ASPROD1, Group: XXXXX, ID# [id number], Questions: . THIS IS NOT INSURANCE.] nystatin-triamcinolone 100,000 unit/g-0.1 % topical cream RxNorm: 0207267 1 Application TOP BID 08/02/2014 08/08/2014 Inactive [SAVINGS FOR UNINSURED PATIENTS -- BIN:160647, PCN: ASPROD1, Group: [id number], ID# [id number], Process claim through [employer], for questions: . THIS IS NOT INSURANCE.] cyanocobalamin (vit B-12) 1,000 mcg/mL injection solution RxNorm: 989767 Milliliter(s) Inj 08/02/2014 08/02/2014 Inactive [SAVINGS FOR UNINSURED PATIENTS -- BIN:087126, PCN: ASPROD1, Group: [id number], ID# [id number], Process claim through [employer], for questions: . THIS IS NOT INSURANCE.] cyanocobalamin (vit B-12) 1,000 mcg/mL injection kit RxNorm: 569892 Milliliter(s) Inj 07/04/2014 07/04/2014 Inactive [SAVINGS FOR UNINSURED PATIENTS -- BIN:588433, PCN: ASPROD1, Group: [id number], ID# [id number], Process claim through [employer], for questions: . THIS IS NOT INSURANCE.] cyanocobalamin (vit B-12) 1,000 mcg/mL injection solution RxNorm: 565806 Milliliter(s) Inj 05/30/2014 05/30/2014 Inactive cyanocobalamin (vit B-12) 1,000 mcg/mL injection solution RxNorm: 516398 Milliliter(s) Inj 05/02/2014 05/02/2014 Inactive cyanocobalamin (vit B-12) 1,000 mcg/mL injection solution RxNorm: 342215 Milliliter(s) Inj 04/05/2014 04/05/2014 Inactive cyanocobalamin (vit B-12) 1,000 mcg/mL injection solution RxNorm: 758359 Milliliter(s) Inj 03/07/2014 03/07/2014 Inactive cyanocobalamin (vit B-12) 1,000 mcg/mL injection solution RxNorm: 836857 1 Milliliter(s) Inj 02/01/2014 02/01/2014 Inactive cyanocobalamin (vit B-12) 1,000 mcg/mL injection solution RxNorm: 780055 1 Milliliter(s) Inj 12/30/2013 12/30/2013 Inactive [SAVINGS FOR UNINSURED PATIENTS -- BIN:501820, PCN: ASPROD1, Group: [id number], ID# [id number], Process claim through [employer] for questions: . THIS IS NOT INSURANCE.] cyanocobalamin (vit B-12) 1,000 mcg/mL injection solution RxNorm: 405861 Milliliter(s) Inj 11/30/2013 11/30/2013 Inactive cyanocobalamin (vit B-12) 1,000 mcg/mL injection solution RxNorm: 864904 1 Milliliter(s) Inj 11/02/2013 11/02/2013 Inactive Vitamin B-12 1,000 mcg/mL injection solution RxNorm: 013346 Milliliter(s) Inj 08/31/2013 08/31/2013 Inactive Vitamin B-12 1,000 mcg/mL injection solution RxNorm: 434235 1 Milliliter(s) Inj 08/04/2013 08/04/2013 Inactive Vitamin B-12 1,000 mcg/mL injection solution RxNorm: 912974 Milliliter(s) Inj 07/06/2013 07/06/2013 Inactive cyanocobalamin (vit B-12) 1,000 mcg/mL injection solution RxNorm: 879086 Milliliter(s) Inj 05/31/2013 05/31/2013 Inactive cyanocobalamin (vit B-12) 1,000 mcg/mL injection kit RxNorm: 967742 Milliliter(s) Inj 05/04/2013 05/04/2013 Inactive cyanocobalamin (vitamin B-12) 1,000 mcg/mL Injection RxNorm: 685905 Milliliter(s) Inj 03/30/2013 03/30/2013 Inactive cyanocobalamin (vitamin B-12) 1,000 mcg/mL Injection RxNorm: 320737 Milliliter(s) Inj 02/02/2013 02/02/2013 Inactive cyanocobalamin (vitamin B-12) 1,000 mcg/mL Injection RxNorm: 769421 Milliliter(s) Inj 12/29/2012 12/29/2012 Inactive cyanocobalamin (vitamin B-12) 1,000 mcg/mL Injection RxNorm: 807988 Milliliter(s) Inj 12/01/2012 12/01/2012 Inactive Vitamin B-12 1,000 mcg tablet RxNorm: 385170 Tablet(s) PO 11/03/2012 11/03/2012 Inactive Vitamin B-12 1,000 mcg/mL Injection RxNorm: 359459 1 Milliliter(s) Inj 09/30/2012 09/30/2012 Inactive triamcinolone acetonide 0.1 % Topical Cream RxNorm: 6538530 1 Application TOP BID 09/30/2012 10/13/2012 Inactive Vitamin B-12 1,000 mcg/mL Injection RxNorm: 038698 1 Milliliter(s) Inj 09/08/2012 09/08/2012 Inactive cyanocobalamin (vitamin B-12) 1,000 mcg/mL Injection RxNorm: 378708 1 Milliliter(s) Inj 08/25/2012 08/25/2012 Inactive cyanocobalamin (vitamin B-12) 1,000 mcg/mL Injection RxNorm: 543467 1 Milliliter(s) Inj 08/11/2012 08/11/2012 Inactive cyanocobalamin (vitamin B-12) 1,000 mcg/mL Injection RxNorm: 685305 1 Milliliter(s) Inj 07/21/2012 07/21/2012 Inactive Vitamin B-12 1,000 mcg/mL Injection RxNorm: 695394 Milliliter(s) Inj 07/07/2012 07/07/2012 Inactive cyanocobalamin (vitamin B-12) 1,000 mcg/mL Injection RxNorm: 922326 1 Milliliter(s) Inj 06/25/2012 06/25/2012 Inactive Vitamin B-12 1,000 mcg/mL Injection RxNorm: 453297 1 Milliliter(s) Inj 06/09/2012 06/09/2012 Inactive Vitamin B-12 1,000 mcg/mL Injection RxNorm: 107334 Milliliter(s) Inj 05/25/2012 05/25/2012 Inactive Vitamin B-12 1,000 mcg/mL Injection RxNorm: 426042 Milliliter(s) Inj 05/12/2012 05/12/2012 Inactive Vitamin B-12 1,000 mcg/mL Injection RxNorm: 719691 Milliliter(s) Inj 04/20/2012 04/20/2012 Inactive Vitamin B-12 1,000 mcg/mL Injection RxNorm: 333970 Milliliter(s) Inj 04/07/2012 04/07/2012 Inactive Vitamin B-12 1,000 mcg/mL Injection RxNorm: 857735 Milliliter(s) Inj 03/10/2012 03/10/2012 Inactive Vitamin B-12 1,000 mcg/mL Injection RxNorm: 307172 Milliliter(s) Inj 02/18/2012 02/18/2012 Inactive Vitamin B-12 1,000 mcg/mL Injection RxNorm: 788938 Milliliter(s) Inj 02/04/2012 02/04/2012 Inactive Vitamin B-12 1,000 mcg/mL Injection RxNorm: 085739 Milliliter(s) Inj 01/21/2012 01/21/2012 Inactive Vitamin B-12 1,000 mcg/mL Injection RxNorm: 505294 Milliliter(s) Inj 01/07/2012 01/07/2012 Inactive Vitamin B-12 1,000 mcg/mL Injection RxNorm: 365016 Milliliter(s) Inj 12/17/2011 12/17/2011 Inactive KCL 10 meq RxNorm: 1 PO daily 12/12/2011 12/16/2011 Inactive Vitamin B-12 1,000 mcg/mL Injection RxNorm: 111389 1 Milliliter(s) Inj monthly No Start Date Active Wellbutrin SR 200 mg Tab RxNorm: 859679 1 Tablet(s) PO daily No Start Date Active Anafranil 25 mg Cap RxNorm: 114219 1 Capsule(s) PO daily No Start Date Active Stelazine 5 mg Tab RxNorm: 779159 1 Tablet(s) PO BID No Start Date Active clonazepam 1 mg Tab RxNorm: 660542 1 Tablet(s) PO BID No Start Date Active risperidone 3 mg Tab RxNorm: 454016 Tablet(s) PO No Start Date Active 2 on even days 3 on odd days Cogentin 1 mg Tab RxNorm: 930376 1 Tablet(s) PO TID No Start Date Active Medication Administered Medication Codes Instructions Start Date Status cyanocobalamin (vit B-12) 1,000 mcg/mL injection solution RxNorm: 926647 Milliliter 11/02/2018 Active cyanocobalamin (vit B-12) 1,000 mcg/mL injection solution RxNorm: 027517 Milliliter 09/28/2018 No longer Active cyanocobalamin (vit B-12) 1,000 mcg/mL injection solution RxNorm: 351611 Milliliter 08/28/2018 No longer Active cyanocobalamin (vit B-12) 1,000 mcg/mL injection solution RxNorm: 918421 Milliliter 07/31/2018 No longer Active cyanocobalamin (vit B-12) 1,000 mcg/mL injection solution RxNorm: 594867 Milliliter 07/01/2018 No longer Active cyanocobalamin (vit B-12) 1,000 mcg/mL injection solution RxNorm: 926836 Milliliter 2018 No longer Active cyanocobalamin (vit B-12) 1,000 mcg/mL injection solution RxNorm: 766622 Milliliter 03/30/2018 No longer Active cyanocobalamin (vit B-12) 1,000 mcg/mL injection solution RxNorm: 496829 1Milliliter 03/03/2018 No longer Active cyanocobalamin (vit B-12) 1,000 mcg/mL injection solution RxNorm: 743113 1Milliliter 01/28/2018 No longer Active cyanocobalamin (vit B-12) 1,000 mcg/mL injection solution RxNorm: 672108 Milliliter 12/29/2017 No longer Active cyanocobalamin (vit B-12) 1,000 mcg/mL injection solution RxNorm: 648891 1Milliliter 12/01/2017 No longer Active cyanocobalamin (vit B-12) 1,000 mcg/mL injection solution RxNorm: 350250 1Milliliter 10/28/2017 No longer Active cyanocobalamin (vit B-12) 1,000 mcg/mL injection solution RxNorm: 913251 Milliliter 09/29/2017 No longer Active cyanocobalamin (vit B-12) 1,000 mcg/mL injection solution RxNorm: 185459 Milliliter 09/02/2017 No longer Active cyanocobalamin (vit B-12) 1,000 mcg/mL injection solution RxNorm: 235164 Milliliter 08/04/2017 No longer Active cyanocobalamin (vit B-12) 1,000 mcg/mL injection solution RxNorm: 743105 1Milliliter 07/01/2017 No longer Active cyanocobalamin (vit B-12) 1,000 mcg/mL injection solution RxNorm: 937515 Milliliter 05/30/2017 No longer Active cyanocobalamin (vit B-12) 1,000 mcg/mL injection solution RxNorm: 028523 1Milliliter 2017 No longer Active cyanocobalamin (vit B-12) 1,000 mcg/mL injection solution RxNorm: 392490 Milliliter 03/31/2017 No longer Active cyanocobalamin (vit B-12) 1,000 mcg/mL injection solution RxNorm: 672545 Milliliter 02/28/2017 No longer Active cyanocobalamin (vit B-12) 1,000 mcg/mL injection solution RxNorm: 380889 Milliliter 02/03/2017 No longer Active cyanocobalamin (vit B-12) 1,000 mcg/mL injection solution RxNorm: 742955 1Milliliter 12/30/2016 No longer Active cyanocobalamin (vit B-12) 1,000 mcg/mL injection solution RxNorm: 841041 1Milliliter 12/02/2016 No longer Active cyanocobalamin (vit B-12) 1,000 mcg/mL injection solution RxNorm: 552470 Milliliter 10/29/2016 No longer Active cyanocobalamin (vit B-12) 1,000 mcg/mL injection solution RxNorm: 848185 1Milliliter 10/01/2016 No longer Active cyanocobalamin (vit B-12) 1,000 mcg/mL injection solution RxNorm: 765968 Milliliter 09/02/2016 No longer Active cyanocobalamin (vit B-12) 1,000 mcg/mL injection solution RxNorm: 735215 Milliliter 08/05/2016 No longer Active cyanocobalamin (vit B-12) 1,000 mcg/mL injection solution RxNorm: 059157 1Milliliter 07/02/2016 No longer Active cyanocobalamin (vit B-12) 1,000 mcg/mL injection solution RxNorm: 146446 Milliliter 06/03/2016 No longer Active cyanocobalamin (vit B-12) 1,000 mcg/mL injection solution RxNorm: 777288 Milliliter 2016 No longer Active cyanocobalamin (vit B-12) 1,000 mcg/mL injection solution RxNorm: 362595 Milliliter 04/01/2016 No longer Active cyanocobalamin (vit B-12) 1,000 mcg/mL injection solution RxNorm: 992034 1Milliliter 03/05/2016 No longer Active cyanocobalamin (vit B-12) 1,000 mcg/mL injection solution RxNorm: 523619 Milliliter 01/29/2016 No longer Active cyanocobalamin (vit B-12) 1,000 mcg/mL injection solution RxNorm: 030834 Milliliter 01/02/2016 No longer Active cyanocobalamin (vit B-12) 1,000 mcg/mL injection solution RxNorm: 077179 Milliliter 10/30/2015 No longer Active cyanocobalamin (B12)-cobamamide 5,000 mcg-100 mcg sublingual tablet RxNorm: 648599 Tablet 10/02/2015 No longer Active cyanocobalamin (vit B-12) 1,000 mcg/mL injection solution RxNorm: 287484 Milliliter 08/29/2015 No longer Active cyanocobalamin (vit B-12) 1,000 mcg/mL injection solution RxNorm: 837113 Milliliter 07/31/2015 No longer Active cyanocobalamin (vit B-12) 1,000 mcg/mL injection solution RxNorm: 634475 Milliliter 06/05/2015 No longer Active cyanocobalamin (vit B-12) 1,000 mcg/mL injection solution RxNorm: 862406 Milliliter 05/01/2015 No longer Active cyanocobalamin (vit B-12) 1,000 mcg/mL injection solution RxNorm: 116334 Milliliter 04/03/2015 No longer Active cyanocobalamin (vit B-12) 1,000 mcg/mL injection solution RxNorm: 810131 Milliliter 02/28/2015 No longer Active cyanocobalamin (vit B-12) 1,000 mcg/mL injection solution RxNorm: 643711 Milliliter 01/30/2015 No longer Active cyanocobalamin (vit B-12) 1,000 mcg/mL injection solution RxNorm: 260255 1Milliliter 01/02/2015 No longer Active cyanocobalamin (vit B-12) 1,000 mcg/mL injection solution RxNorm: 468174 1Milliliter 11/28/2014 No longer Active cyanocobalamin (vit B-12) 1,000 mcg/mL injection solution RxNorm: 163599 Milliliter 10/31/2014 No longer Active cyanocobalamin (vit B-12) 1,000 mcg/mL injection solution RxNorm: 330001 1Milliliterdaily 10/03/2014 No longer Active cyanocobalamin (vit B-12) 1,000 mcg/mL injection solution RxNorm: 796272 Milliliter 08/30/2014 No longer Active cyanocobalamin (vit B-12) 1,000 mcg/mL injection solution RxNorm: 000627 Milliliter 08/02/2014 No longer Active cyanocobalamin (vit B-12) 1,000 mcg/mL injection kit RxNorm: 219932 Milliliter 07/04/2014 No longer Active cyanocobalamin (vit B-12) 1,000 mcg/mL injection solution RxNorm: 047945 Milliliter 05/30/2014 No longer Active cyanocobalamin (vit B-12) 1,000 mcg/mL injection solution RxNorm: 819872 Milliliter 05/02/2014 No longer Active cyanocobalamin (vit B-12) 1,000 mcg/mL injection solution RxNorm: 958005 Milliliter 04/05/2014 No longer Active cyanocobalamin (vit B-12) 1,000 mcg/mL injection solution RxNorm: 191847 Milliliter 03/07/2014 No longer Active cyanocobalamin (vit B-12) 1,000 mcg/mL injection solution RxNorm: 183524 1Milliliter 02/01/2014 No longer Active cyanocobalamin (vit B-12) 1,000 mcg/mL injection solution RxNorm: 712594 1Milliliter 12/30/2013 No longer Active cyanocobalamin (vit B-12) 1,000 mcg/mL injection solution RxNorm: 936276 Milliliter 11/30/2013 No longer Active cyanocobalamin (vit B-12) 1,000 mcg/mL injection solution RxNorm: 251100 1Milliliter 11/02/2013 No longer Active Vitamin B-12 1,000 mcg/mL injection solution RxNorm: 637877 Milliliter 08/31/2013 No longer Active Vitamin B-12 1,000 mcg/mL injection solution RxNorm: 800373 1Milliliter 08/04/2013 No longer Active Vitamin B-12 1,000 mcg/mL injection solution RxNorm: 035903 Milliliter 07/06/2013 No longer Active cyanocobalamin (vit B-12) 1,000 mcg/mL injection solution RxNorm: 296957 Milliliter 05/31/2013 No longer Active cyanocobalamin (vit B-12) 1,000 mcg/mL injection kit RxNorm: 520029 Milliliter 05/04/2013 No longer Active cyanocobalamin (vitamin B-12) 1,000 mcg/mL Injection RxNorm: 135886 Milliliter 03/30/2013 No longer Active cyanocobalamin (vitamin B-12) 1,000 mcg/mL Injection RxNorm: 888473 Milliliter 02/02/2013 No longer Active cyanocobalamin (vitamin B-12) 1,000 mcg/mL Injection RxNorm: 326477 Milliliter 12/29/2012 No longer Active cyanocobalamin (vitamin B-12) 1,000 mcg/mL Injection RxNorm: 207808 Milliliter 12/01/2012 No longer Active Vitamin B-12 1,000 mcg tablet RxNorm: 862078 Tablet 11/03/2012 No longer Active Vitamin B-12 1,000 mcg/mL Injection RxNorm: 319279 1Milliliter 09/30/2012 No longer Active Vitamin B-12 1,000 mcg/mL Injection RxNorm: 979429 1Milliliter 09/08/2012 No longer Active cyanocobalamin (vitamin B-12) 1,000 mcg/mL Injection RxNorm: 055166 1Milliliter 08/25/2012 No longer Active cyanocobalamin (vitamin B-12) 1,000 mcg/mL Injection RxNorm: 320547 1Milliliter 08/11/2012 No longer Active cyanocobalamin (vitamin B-12) 1,000 mcg/mL Injection RxNorm: 078889 1Milliliter 07/21/2012 No longer Active Vitamin B-12 1,000 mcg/mL Injection RxNorm: 881529 Milliliter 07/07/2012 No longer Active cyanocobalamin (vitamin B-12) 1,000 mcg/mL Injection RxNorm: 857260 1Milliliter 06/25/2012 No longer Active Vitamin B-12 1,000 mcg/mL Injection RxNorm: 924345 1Milliliter 06/09/2012 No longer Active Vitamin B-12 1,000 mcg/mL Injection RxNorm: 158839 Milliliter 05/25/2012 No longer Active Vitamin B-12 1,000 mcg/mL Injection RxNorm: 610109 Milliliter 05/12/2012 No longer Active Vitamin B-12 1,000 mcg/mL Injection RxNorm: 036042 [facility] 04/20/2012 No longer Active Vitamin B-12 1,000 mcg/mL Injection RxNorm: 165149 [facility] 04/07/2012 No longer Active Vitamin B-12 1,000 mcg/mL Injection RxNorm: 978257 [facility] 03/10/2012 No longer Active Vitamin B-12 1,000 mcg/mL Injection RxNorm: 069342 [facility] 02/18/2012 No longer Active Vitamin B-12 1,000 mcg/mL Injection RxNorm: 392466 [facility] 02/04/2012 No longer Active Vitamin B-12 1,000 mcg/mL Injection RxNorm: 729566 [facility] 01/21/2012 No longer Active Vitamin B-12 1,000 mcg/mL Injection RxNorm: 818204 [facility] 01/07/2012 No longer Active Vitamin B-12 1,000 mcg/mL Injection RxNorm: 270616 [facility] 12/17/2011 No longer Active Immunizations Vaccine Codes Date Status Influenza CVX: 141 2018 completed Influenza CVX: 141 2017 completed Influenza CVX: 141 05/01/2016 completed Pneumococcal CVX: 33 11/21/2015 completed PPD Unknown 07/31/2015 completed Influenza CVX: 141 05/04/2013 completed PPD Unknown 05/03/2013 completed Pneumococcal CVX: 33 11/04/2012 completed Tetanus/Diptheria CVX: 28 11/04/2012 completed Assessments Condition Codes Effective Dates Vitamin B12 deficiency anemia, unspecified ICD-10: D51.9 ICD-9: 281.1 11/02/2018 Other vitamin B12 deficiency anemias ICD-10: D51.8 ICD-9: 281.1 09/28/2018 Vitamin B12 deficiency anemia due to 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 07/31/2018 Encounter for immunization ICD-10: Z23 ICD-9: V04.81 [...] Code Item Item Code Result Date B12 [id number] B12 637.00 pg/ml 07/31/2015 FOLIC ACID 2750073 FOLIC ACID >24.0 NG/ML 08/25/2012 VIT B 12 0997121 VIT B 12 1591 PG/ML 08/25/2012 HOMOCYS 6129985 HOMOCYS 6.8 UMOL/L 08/25/2012 TSH 4787679 TSH 1.386 uIU/ML 07/07/2012 CBC 0598191 WBC 6.4 10e9/L 07/07/2012 CBC 7926821 RBC 4.92 10e12/L 07/07/2012 CBC 0808835 HGB 15.0 g/dL 07/07/2012 CBC 9643946 HCT DET 43.3 % 07/07/2012 CBC 8451064 MCV 88.0 fL 07/07/2012 CBC 4396012 MCH 30.5 pg 07/07/2012 CBC 3975111 MCHC 34.6 g/dL 07/07/2012 CBC 3967708 PLT 180 10e9/L 07/07/2012 CBC 1487385 MPV 10.0 fL 07/07/2012 CBC 9581614 KENRICK % 59.0 % 07/07/2012 CBC 4422035 LY % 24.1 % 07/07/2012 CBC 1173633 MON % 12.5 % 07/07/2012 CBC 6036199 EOS % 4.1 % 07/07/2012 CBC 9901799 BASO % 0.3 % 07/07/2012 CBC 5839824 RDW 13.4 % 07/07/2012 CBC 9465261 ABS KENRICK 3.78 10e9/L 07/07/2012 CBC 8253576 ABS LYMPH 1.54 10e9/L 07/07/2012 CBC 6396844 ABS MONO 0.80 10e9/L 07/07/2012 CBC 0205399 ABS EOS 0.26 10e9/L 07/07/2012 CBC 0863335 ABS BASO 0.02 10e9/L 07/07/2012 CBC 2753310 RDW-SD 42.9 fL 07/07/2012 CHEM 14 5872458 AST 29 U/L 07/07/2012 CHEM 14 1823407 ALT 29 U/L 07/07/2012 CHEM 14 8654970 BUN 9 MG/DL 07/07/2012 CHEM 14 6138868 ALBUMIN 4.1 GM/DL 07/07/2012 CHEM 14 3070699 CHLORIDE 103 MMOL/L 07/07/2012 CHEM 14 4829242 BILI TOT 0.3 MG/DL 07/07/2012 CHEM 14 7222159 ALK PHOS 88 U/L 07/07/2012 CHEM 14 8040832 SODIUM 141 MMOL/L 07/07/2012 CHEM 14 6664611 CREATININE 1.38 MG/DL 07/07/2012 CHEM 14 8910904 CALCIUM 9.3 MG/DL 07/07/2012 CHEM 14 9084435 POTASSIUM 3.7 MMOL/L 07/07/2012 CHEM 14 0004982 PROT TOT 6.4 GM/DL 07/07/2012 CHEM 14 2721493 GLUCOSE 76 MG/DL 07/07/2012 CHEM 14 7755382 BICARB 28 MMOL/L 07/07/2012 CHEM 14 1014677 ANION GAP 10 MMOL/L 07/07/2012 GFR CALC 3451067 GFR AA >60 ML/MIN 07/07/2012 GFR CALC 4337379 GFR NON-AA 52.0L ML/MIN 07/07/2012 B12 FOLAT 1598274 VIT B 12 211 PG/ML 12/10/2011 B12 FOLAT 5550714 FOLIC ACID 3.9 NG/ML 12/10/2011 GFR CALC 0668253 GFR AA >60 ML/MIN 12/10/2011 GFR CALC 3144860 GFR NON-AA >60 ML/MIN 12/10/2011 CPK 4466516 CPK 135 U/L 12/10/2011 CHEM 14 8837637 AST 62 U/L 12/10/2011 CHEM 14 5352394 ALT 114 U/L 12/10/2011 CHEM 14 7058032 BUN 10 MG/DL 12/10/2011 CHEM 14 7717848 ALBUMIN 3.7 GM/DL 12/10/2011 CHEM 14 1503276 CHLORIDE 103 MMOL/L 12/10/2011 CHEM 14 0322424 BILI TOT 0.5 MG/DL 12/10/2011 CHEM 14 2851286 ALK PHOS 129 U/L 12/10/2011 CHEM 14 5142966 SODIUM 140 MMOL/L 12/10/2011 CHEM 14 2978786 CREATININE 1.17 MG/DL 12/10/2011 CHEM 14 7964693 CALCIUM 8.8 MG/DL 12/10/2011 CHEM 14 2139221 POTASSIUM 3.4 MMOL/L 12/10/2011 CHEM 14 7197806 PROT TOT 5.8 GM/DL 12/10/2011 CHEM 14 0927596 GLUCOSE 84 MG/DL 12/10/2011 CHEM 14 0684464 BICARB 26 MMOL/L 12/10/2011 CHEM 14 8802985 ANION GAP 11 MMOL/L 12/10/2011 URINALYSIS NONAUTO W/O SCOPE 94011 Specific Dolphin 1.005 DateTime(Free Text in Aprima) URINALYSIS NONAUTO W/O SCOPE 30870 PH 6 DateTime(Free Text in Aprima) URINALYSIS NONAUTO W/O SCOPE 49753 GLUCOSE neg DateTime(Free Text in Aprima) URINALYSIS NONAUTO W/O SCOPE 10125 Protein neg DateTime(Free Text in Aprima) URINALYSIS NONAUTO W/O SCOPE 11827 Blood neg DateTime(Free Text in Aprima) URINALYSIS NONAUTO W/O SCOPE 83180 Bilirubin neg DateTime(Free Text in Aprima) URINALYSIS NONAUTO W/O SCOPE 64044 Ketones neg DateTime(Free Text in Aprima) URINALYSIS NONAUTO W/O SCOPE 84153 Urobilinogen neg DateTime(Free Text in Aprima) URINALYSIS NONAUTO W/O SCOPE 30151 Nitrite neg DateTime(Free Text in Aprima) URINALYSIS NONAUTO W/O SCOPE 16180 Leukocytes neg DateTime(Free Text in Aprima) URINALYSIS NONAUTO W/O SCOPE 56507 Specific Dolphin 1.010 DateTime(Free Text in Aprima) URINALYSIS NONAUTO W/O SCOPE 71295 PH 6.5 DateTime(Free Text in Aprima) URINALYSIS NONAUTO W/O SCOPE 59949 GLUCOSE neg DateTime(Free Text in Aprima) URINALYSIS NONAUTO W/O SCOPE 61063 Protein neg DateTime(Free Text in Aprima) URINALYSIS NONAUTO W/O SCOPE 66950 Blood neg DateTime(Free Text in Aprima) URINALYSIS NONAUTO W/O SCOPE 90284 Bilirubin neg DateTime(Free Text in Aprima) URINALYSIS NONAUTO W/O SCOPE 36489 Ketones neg DateTime(Free Text in Aprima) URINALYSIS NONAUTO W/O SCOPE 46783 Urobilinogen neg DateTime(Free Text in Aprima) URINALYSIS NONAUTO W/O SCOPE 17206 Nitrite neg DateTime(Free Text in Aprima) URINALYSIS NONAUTO W/O SCOPE 12852 Leukocytes neg DateTime(Free Text in Apr) Review of Systems System Result Effective Dates [...] recall three words at five minutes 11/05/[address] [facility] exam points Full Exam - General 1994 [...] recall three words at five minutes 01/16/[address] [facility] exam points Full Exam - General 1994 Constitutional general appearance Overall: well developed 08/02/2014 None Full Exam - General 1994 Constitutional general appearance Overall: in no acute distress 08/02/2014 None Full Exam - General 1994 Constitutional general appearance Overall: well nourished 08/02/2014 None Full Exam - General 1995 Respiratory auscultation Overall: breath sounds clear bilaterally 08/02/2014 None Full Exam - General 1995 Cardiovascular auscultation of heart Overall: regular rate 08/02/2014 None Full Exam - General 1995 Cardiovascular auscultation of heart Systolic murmur grade: II/ 08/02/2014 None Full Exam - General 1995 Psychiatric orientation/consciousness Overall: oriented to person, place and time 08/02/2014 None Full Exam - General 1995 Integument inspection of skin Rash/Lesions: patch 08/02/2014 [...] bilaterally 03/02/2013 None Full Exam - General 1995 Respiratory respiratory effort/rhythm Overall: no retractions 03/02/2013 None Full Exam - General 1995 Respiratory respiratory effort/rhythm Overall: normal rate 03/02/2013 [...] 03/02/2013 None Full Exam - General 1994 Constitutional general appearance Overall: well developed 03/02/2013 None Full Exam - General 1994 Constitutional general appearance Overall: in no acute distress 03/02/2013 None Full Exam - General 1994 Constitutional general appearance Overall: well nourished 03/02/2013 [...] disease 03/02/2013 None Full Exam - General 1994 Musculoskeletal spine, ribs and pelvis Posture: lordosis 03/02/2013 None Full Exam - General 1995 Musculoskeletal head and neck Overall: head atraumatic 03/02/2013 None Full Exam - General 1995 Musculoskeletal head and neck Overall: cervical spine benign 03/02/2013 None Full Exam - General 1995 Neurologic deep tendon reflexes Overall: deep tendon reflexes intact 03/02/2013 None Full Exam - General 1995 Neurologic gait Overall: no ataxia, no unsteadiness 03/02/2013 None Full Exam - General 1995 Neurologic cranial nerves Overall: crainial nerves 2 - 12 grossly intact 03/02/2013 None Full Exam - General 1994 Psychiatric orientation/consciousness Overall: oriented to person, place and time 03/02/2013 None Full Exam - General 1994 Psychiatric mood and affect Mood: happy 03/02/2013 None Full Exam - General 1994 [...] digits 03/02/2013 None Full Exam - General 1994 Psychiatric cognition/memory Immediate memory: unable to recall three words at five minutes 03/02/2013 [facility] exam points Full Exam - Dermatology [...] scaly 09/30/2012 None Full Exam - General 1995 Constitutional general appearance Overall: well developed 07/07/2012 [...] clubbing 07/07/2012 None Full Exam - General 1994 Cardiovascular extremities Edema present: pitting 07/07/2012 None Full Exam - General 1994 Cardiovascular extremities Edema present: severity 1+ - 4+: _ 07/07/2012 None Full Exam - General 1994 Cardiovascular extremities Edema present: to knees 07/07/2012 None Full Exam - General 1994 [...] events 07/07/2012 None Full Exam - General 1994 Psychiatric cognition/memory Recent past memory: unable to recall recent news events 07/07/2012 None Full Exam - General 1994 Psychiatric cognition/memory Immediate memory: unable to repeat 6 digits 07/07/2012 None Full Exam - General 1995 Psychiatric cognition/memory Immediate memory: unable to recall three words at five minutes 07/07/[address] [facility] exam points Full Exam - General 1995 [...] 1994 Constitutional general appearance Overall: well developed 01/07/2012 [...] tenderness 01/07/2012 None Full Exam - General 1994 Abdomen abdominal exam Overall: normal bowel sounds 01/07/2012 None Full Exam - General 1994 Abdomen liver and spleen exam Overall: no hepatosplenomegaly 01/07/2012 None Full Exam - General 1994 Abdomen liver and spleen exam Overall: no stigmata of chronic liver disease 01/07/2012 None Full Exam - General 1994 Musculoskeletal [...] recall three words at five minutes 01/07/[address] [facility] exam points Full Exam - General 1994 [...] rate 12/17/2011 None Full Exam - General 1995 Cardiovascular extremities Overall: no clubbing 12/17/2011 None Full Exam - General 1994 Cardiovascular extremities Edema present: pitting 12/17/2011 None Full Exam - General 1995 Cardiovascular extremities Edema present: severity 1+ - 4+: 1 12/17/2011 None Full Exam - General 1995 Cardiovascular extremities Edema present: to knees 12/17/2011 None Full Exam - General 1994 Cardiovascular auscultation of heart Overall: regular rate 12/17/2011 None Full Exam - General 1994 Cardiovascular auscultation of heart Systolic murmur grade: II/ 12/17/2011 None Full Exam - General 1995 Abdomen abdominal exam Overall: no tenderness 12/17/2011 [...] recall three words at five minutes 12/17/2011 [facility] exam points Full Exam - General [...] dentition 12/10/2011 None Full Exam - General 1994 Ears/Nose/Throat lips/teeth/gingiva Overall: benign gingiva 12/10/2011 None [...] non-tender 12/10/2011 None Full Exam - General 1994 Musculoskeletal spine, ribs and pelvis Posture: lordosis 12/10/2011 None Full Exam - General 1994 Musculoskeletal head and neck Overall: head atraumatic 12/10/2011 None Full Exam - General 1994 Musculoskeletal head and neck Overall: cervical spine benign 12/10/2011 None Full Exam - General 1994 Neurologic [...] happy 12/10/2011 None Full Exam - General 1995 Psychiatric mood and affect Affect: mood congruent 12/10/2011 None Full Exam - General 1995 Psychiatric cognition/memory Remote memory: poor recollection of past events 12/10/2011 None Full Exam - General 1995 Psychiatric cognition/memory Recent past memory: unable to recall recent news events 12/10/2011 None Full Exam - General 1995 Psychiatric cognition/memory Immediate memory: unable to repeat 6 digits 12/10/2011 None Full Exam - General 1994 Psychiatric cognition/memory Immediate memory: unable to recall three words at five minutes 12/10/[address] [facility] exam points Full Exam - General 1994 [...] clear 11/26/2011 None Full Exam - General 1995 Ears/Nose/Throat otoscopic exam Overall: external auditory canals clear 11/26/2011 None Full Exam - General 1995 Ears/Nose/Throat lips/teeth/gingiva Overall: benign gingiva 11/26/2011 None Full Exam - General 1995 Ears/Nose/Throat lips/teeth/gingiva Overall: no masses 11/26/2011 None Full Exam - General 1994 Ears/Nose/Throat lips/teeth/gingiva Overall: normal dentition 11/26/2011 None Full Exam - General 1995 Ears/Nose/Throat lips/teeth/gingiva Overall: benign lips 11/26/2011 None Full Exam - General 1995 Ears/Nose/Throat oral cavity/pharynx/larynx Overall: oral mucosa clear 11/26/2011 None Full Exam - General 1995 Ears/Nose/Throat oral cavity/pharynx/larynx Posterior Pharynx: a normal exam 11/26/2011 None Full Exam - General 1995 Ears/Nose/Throat oral cavity/pharynx/larynx Oral mucosa: moist 11/26/2011 None Full Exam - General 1995 Ears/Nose/Throat oral cavity/pharynx/larynx Mobile tongue: large 11/26/2011 [...] recall three words at five minutes 11/26/[address] [facility] exam points Procedures Procedure Codes Date THER/PROPH/DIAG INJ SC/IM CPT-4: 81545 11/02/2018 VITAMIN B12 INJECTION CPT- 4: J3420 11/02/2018 THER/PROPH/DIAG INJ SC/IM CPT-4: 18119 09/28/2018 VITAMIN B12 INJECTION CPT- 4: J3420 09/28/2018 THER/PROPH/DIAG INJ SC/IM CPT-4: 91195 08/28/2018 VITAMIN B12 INJECTION CPT- 4: J3420 08/28/2018 THER/PROPH/DIAG INJ SC/IM CPT-4: 88240 07/31/2018 VITAMIN B12 INJECTION CPT- 4: J3420 07/31/2018 THER/PROPH/DIAG INJ SC/IM CPT-4: 23131 07/01/2018 VITAMIN B12 INJECTION CPT- 4: J3420 07/01/2018 ADMIN INFLUENZA VIRUS VAC CPT-4: G0008 2018 FLU VACC PRSV FREE INC ANTIG CPT-4: 61557 2018 THER/PROPH/DIAG INJ SC/IM CPT-4: 40574 2018 VITAMIN B12 INJECTION CPT- 4: J3420 2018 THER/PROPH/DIAG INJ SC/IM CPT-4: 38483 03/30/2018 VITAMIN B12 INJECTION CPT- 4: J3420 03/30/2018 THER/PROPH/DIAG INJ SC/IM CPT-4: 83247 03/03/2018 VITAMIN B12 INJECTION CPT- 4: J3420 03/03/2018 THER/PROPH/DIAG INJ SC/IM CPT-4: 55044 01/28/2018 VITAMIN B12 INJECTION CPT- 4: J3420 01/28/2018 THER/PROPH/DIAG INJ SC/IM CPT-4: 75494 12/29/2017 VITAMIN B12 INJECTION CPT- 4: J3420 12/29/2017 THER/PROPH/DIAG INJ SC/IM CPT-4: 42550 12/01/2017 VITAMIN B12 INJECTION CPT- 4: J3420 12/01/2017 VITAMIN B12 INJECTION CPT- 4: J3420 10/28/2017 THER/PROPH/DIAG INJ SC/IM CPT-4: 87899 10/28/2017 THER/PROPH/DIAG INJ SC/IM CPT-4: 69441 09/29/2017 VITAMIN B12 INJECTION CPT- 4: J3420 09/29/2017 THER/PROPH/DIAG INJ SC/IM CPT-4: 89079 09/02/2017 VITAMIN B12 INJECTION CPT- 4: J3420 09/02/2017 THER/PROPH/DIAG INJ SC/IM CPT-4: 98682 08/04/2017 VITAMIN B12 INJECTION CPT- 4: J3420 08/04/2017 THER/PROPH/DIAG INJ SC/IM CPT-4: 25639 07/01/2017 VITAMIN B12 INJECTION CPT- 4: J3420 07/01/2017 THER/PROPH/DIAG INJ SC/IM CPT-4: 55775 05/30/2017 VITAMIN B12 INJECTION CPT- 4: J3420 05/30/2017 THER/PROPH/DIAG INJ SC/IM CPT-4: 29321 2017 ADMIN INFLUENZA VIRUS VAC CPT-4: G0008 2017 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-[address]: 813851385 CPT-4: G0436 2017 VITAMIN B12 INJECTION CPT- 4: J3420 2017 FLU VACC PRSV FREE INC ANTIG CPT-4: 50340 2017 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-[address]: 314535951 CPT-4: G0436 03/31/2017 VITAMIN B12 INJECTION CPT- 4: J3420 03/31/2017 THER/PROPH/DIAG INJ SC/IM CPT-4: 32548 02/28/2017 VITAMIN B12 INJECTION CPT- 4: J3420 02/28/2017 THER/PROPH/DIAG INJ SC/IM CPT-4: 94635 02/03/2017 VITAMIN B12 INJECTION CPT- 4: J3420 02/03/2017 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-[address]: 025113685 CPT-4: G0436 12/30/2016 THER/PROPH/DIAG INJ SC/IM CPT-4: 03319 12/30/2016 VITAMIN B12 INJECTION CPT- 4: J3420 12/30/2016 THER/PROPH/DIAG INJ SC/IM CPT-4: 07995 12/02/2016 VITAMIN B12 INJECTION CPT- 4: J3420 12/02/2016 THER/PROPH/DIAG INJ SC/IM CPT-4: 17564 10/29/2016 VITAMIN B12 INJECTION CPT- 4: J3420 10/29/2016 THER/PROPH/DIAG INJ SC/IM CPT-4: 80968 10/01/2016 VITAMIN B12 INJECTION CPT- 4: J3420 10/01/2016 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-[address]: 562659786 CPT-4: G0436 09/02/2016 VITAMIN B12 INJECTION CPT- 4: J3420 09/02/2016 THER/PROPH/DIAG INJ SC/IM CPT-4: 70136 09/02/2016 THER/PROPH/DIAG INJ SC/IM CPT-4: 60528 08/05/2016 VITAMIN B12 INJECTION CPT- 4: J3420 08/05/2016 THER/PROPH/DIAG INJ SC/IM CPT-4: 37923 07/02/2016 VITAMIN B12 INJECTION CPT- 4: J3420 07/02/2016 VITAMIN B12 INJECTION CPT- 4: J3420 06/03/2016 THER/PROPH/DIAG INJ SC/IM CPT-4: 88423 06/03/2016 THER/PROPH/DIAG INJ SC/IM CPT-4: 64329 2016 VITAMIN B12 INJECTION CPT- 4: J3420 2016 THER/PROPH/DIAG INJ SC/IM CPT-4: 37649 04/01/2016 VITAMIN B12 INJECTION CPT- 4: J3420 04/01/2016 VITAMIN B12 INJECTION CPT- 4: J3420 03/05/2016 THER/PROPH/DIAG INJ SC/IM CPT-4: 53383 03/05/2016 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-[address]: 478220993 CPT-4: G0436 01/29/2016 THER/PROPH/DIAG INJ SC/IM CPT-4: 12326 01/29/2016 VITAMIN B12 INJECTION CPT- 4: J3420 01/29/2016 THER/PROPH/DIAG INJ SC/IM CPT-4: 26073 01/02/2016 VITAMIN B12 INJECTION CPT- 4: J3420 01/02/2016 VITAMIN B12 INJECTION CPT- 4: J3420 12/04/2015 THER/PROPH/DIAG INJ SC/IM CPT-4: 21687 12/04/2015 THER/PROPH/DIAG INJ SC/IM CPT-4: 11642 10/30/2015 VITAMIN B12 INJECTION CPT- 4: J3420 10/30/2015 PPPS, SUBSEQ VISIT CPT- 4: G0439 10/11/2015 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-[address]: 535359036 CPT-4: G0436 10/11/2015 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-[address]: 339930453 CPT-4: G0436 10/02/2015 THER/PROPH/DIAG INJ SC/IM CPT-4: 95075 10/02/2015 VITAMIN B12 INJECTION CPT- 4: J3420 10/02/2015 THER/PROPH/DIAG INJ SC/IM CPT-4: 76987 08/29/2015 VITAMIN B12 INJECTION CPT- 4: J3420 08/29/2015 THER/PROPH/DIAG INJ SC/IM CPT-4: 46534 07/31/2015 VITAMIN B12 INJECTION CPT- 4: J3420 07/31/2015 THER/PROPH/DIAG INJ SC/IM CPT-4: 98362 07/03/2015 VITAMIN B12 INJECTION CPT- 4: J3420 07/03/2015 THER/PROPH/DIAG INJ SC/IM CPT-4: 83447 06/05/2015 VITAMIN B12 INJECTION CPT- 4: J3420 06/05/2015 VITAMIN B12 INJECTION CPT- 4: J3420 05/01/2015 THER/PROPH/DIAG INJ SC/IM CPT-4: 47800 05/01/2015 THER/PROPH/DIAG INJ SC/IM CPT-4: 02073 04/03/2015 VITAMIN B12 INJECTION CPT- 4: J3420 04/03/2015 THER/PROPH/DIAG INJ SC/IM CPT-4: 35499 02/28/2015 VITAMIN B12 INJECTION CPT- 4: J3420 02/28/2015 THER/PROPH/DIAG INJ SC/IM CPT-4: 42077 01/30/2015 VITAMIN B12 INJECTION CPT- 4: J3420 01/30/2015 VITAMIN B12 INJECTION CPT- 4: J3420 01/02/2015 THER/PROPH/DIAG INJ SC/IM CPT-4: 79050 01/02/2015 THER/PROPH/DIAG INJ SC/IM CPT-4: 07251 11/28/2014 VITAMIN B12 INJECTION CPT- 4: J3420 11/28/2014 THER/PROPH/DIAG INJ SC/IM CPT-4: 37895 10/31/2014 VITAMIN B12 INJECTION CPT- 4: J3420 10/31/2014 THER/PROPH/DIAG INJ SC/IM CPT-4: 45109 10/03/2014 VITAMIN B12 INJECTION CPT- 4: J3420 10/03/2014 THER/PROPH/DIAG INJ SC/IM CPT-4: 06935 08/30/2014 VITAMIN B12 INJECTION CPT- 4: J3420 08/30/2014 THER/PROPH/DIAG INJ SC/IM CPT-4: 83200 08/02/2014 VITAMIN B12 INJECTION CPT- 4: J3420 08/02/2014 THER/PROPH/DIAG INJ SC/IM CPT-4: 10723 07/04/2014 VITAMIN B12 INJECTION CPT- 4: J3420 07/04/2014 THER/PROPH/DIAG INJ SC/IM CPT-4: 34150 05/30/2014 VITAMIN B12 INJECTION CPT- 4: J3420 05/30/2014 THER/PROPH/DIAG INJ SC/IM CPT-4: 55871 05/02/2014 VITAMIN B12 INJECTION CPT- 4: J3420 05/02/2014 THER/PROPH/DIAG INJ SC/IM CPT-4: 44601 04/05/2014 THER/PROPH/DIAG INJ SC/IM CPT-4: 69824 03/07/2014 VITAMIN B12 INJECTION CPT- 4: J3420 03/07/2014 THER/PROPH/DIAG INJ SC/IM CPT-4: 04166 02/01/2014 VITAMIN B12 INJECTION CPT- 4: J3420 02/01/2014 VITAMIN B12 INJECTION CPT- 4: J3420 12/30/2013 THER/PROPH/DIAG INJ SC/IM CPT-4: 83282 12/30/2013 THER/PROPH/DIAG INJ SC/IM CPT-4: 31083 11/30/2013 VITAMIN B12 INJECTION CPT- 4: J3420 11/30/2013 THER/PROPH/DIAG INJ SC/IM CPT-4: 21897 11/02/2013 VITAMIN B12 INJECTION CPT- 4: J3420 11/02/2013 THER/PROPH/DIAG INJ SC/IM CPT-4: 56040 08/31/2013 VITAMIN B12 INJECTION CPT- 4: J3420 08/31/2013 THER/PROPH/DIAG INJ SC/IM CPT-4: 47957 08/04/2013 VITAMIN B12 INJECTION CPT- 4: J3420 08/04/2013 VITAMIN B12 INJECTION CPT- 4: J3420 07/06/2013 THER/PROPH/DIAG INJ SC/IM CPT-4: 72714 07/06/2013 THER/PROPH/DIAG INJ SC/IM CPT-4: 81413 05/31/2013 VITAMIN B12 INJECTION CPT- 4: J3420 05/31/2013 ADMIN INFLUENZA VIRUS VAC CPT-4: G0008 05/04/2013 FLULAVAL VACC, 3 YRS & >, IM CPT-4: Q2036 05/04/2013 THER/PROPH/DIAG INJ SC/IM CPT-4: 90489 05/04/2013 VITAMIN B12 INJECTION CPT- 4: J3420 05/04/2013 THER/PROPH/DIAG INJ SC/IM CPT-4: 33437 03/30/2013 VITAMIN B12 INJECTION CPT- 4: J3420 03/30/2013 THER/PROPH/DIAG INJ SC/IM CPT-4: 37188 03/02/2013 VITAMIN B12 INJECTION CPT- 4: J3420 03/02/2013 [id number] EST. PATIENT, LEVEL IV CPT-4: 97739 03/02/2013 THER/PROPH/DIAG INJ SC/IM CPT-4: 54619 02/02/2013 VITAMIN B12 INJECTION CPT- 4: J3420 02/02/2013 THER/PROPH/DIAG INJ SC/IM CPT-4: 10286 12/29/2012 VITAMIN B12 INJECTION CPT- 4: J3420 12/29/2012 TRIAMCINOLONE ACET INJ NOS CPT-4: J3301 12/01/2012 VITAMIN B12 INJECTION CPT- 4: J3420 12/01/2012 VITAMIN B12 INJECTION CPT- 4: J3420 11/03/2012 THER/PROPH/DIAG INJ SC/IM CPT-4: 14744 11/03/2012 THER/PROPH/DIAG INJ SC/IM CPT-4: 55524 09/30/2012 VITAMIN B12 INJECTION CPT- 4: J3420 09/30/2012 PRESCRIP TRANSMIT VIA ERX SY CPT-4: G8553 09/30/2012 VITAMIN B12 INJECTION CPT- 4: J3420 09/08/2012 THER/PROPH/DIAG INJ SC/IM CPT-4: 01804 09/08/2012 THER/PROPH/DIAG INJ SC/IM CPT-4: 11527 08/25/2012 ROUTINE VENIPUNCTURE CPT- 4: 96062 08/25/2012 VITAMIN B12 INJECTION CPT- 4: J3420 08/25/2012 THER/PROPH/DIAG INJ SC/IM CPT-4: 91294 08/11/2012 VITAMIN B12 INJECTION CPT- 4: J3420 08/11/2012 VITAMIN B12 INJECTION CPT- 4: J3420 07/21/2012 THER/PROPH/DIAG INJ SC/IM CPT-4: 78552 07/21/2012 THER/PROPH/DIAG INJ SC/IM CPT-4: 15593 07/07/2012 VITAMIN B12 INJECTION CPT- 4: J3420 07/07/2012 ROUTINE VENIPUNCTURE CPT- 4: 55497 07/07/2012 VITAMIN B12 INJECTION CPT- 4: J3420 06/25/2012 THER/PROPH/DIAG INJ SC/IM CPT-4: 12730 06/25/2012 VITAMIN B12 INJECTION CPT- 4: J3420 06/09/2012 THER/PROPH/DIAG INJ SC/IM CPT-4: 32620 06/09/2012 VITAMIN B12 INJECTION CPT- 4: J3420 05/25/2012 THER/PROPH/DIAG INJ SC/IM CPT-4: 84222 05/25/2012 VITAMIN B12 INJECTION CPT- 4: J3420 05/12/2012 THER/PROPH/DIAG INJ SC/IM CPT-4: 06421 05/12/2012 VITAMIN B12 INJECTION CPT- 4: J3420 04/20/2012 THER/PROPH/DIAG INJ SC/IM CPT-4: 82631 04/20/2012 THER/PROPH/DIAG INJ SC/IM CPT-4: 93246 04/07/2012 VITAMIN B12 INJECTION CPT- 4: J3420 04/07/2012 VITAMIN B12 INJECTION CPT- 4: J3420 03/10/2012 THER/PROPH/DIAG INJ SC/IM CPT-4: 68050 03/10/2012 VITAMIN B12 INJECTION CPT- 4: J3420 02/18/2012 THER/PROPH/DIAG INJ SC/IM CPT-4: 40936 02/18/2012 THER/PROPH/DIAG INJ SC/IM CPT-4: 13438 02/04/2012 VITAMIN B12 INJECTION CPT- 4: J3420 02/04/2012 THER/PROPH/DIAG INJ SC/IM CPT-4: 76064 01/21/2012 VITAMIN B12 INJECTION CPT- 4: J3420 01/21/2012 VITAMIN B12 INJECTION CPT- 4: J3420 01/07/2012 VITAMIN B12 INJECTION CPT- 4: J3420 12/17/2011 URINALYSIS NONAUTO W/O SCOPE CPT-4: 67026 12/10/2011 ROUTINE VENIPUNCTURE CPT- 4: 93255 12/10/2011 URINALYSIS NONAUTO W/O SCOPE CPT-4: 60465 11/26/2011 Vital Signs Date Vital 11/05/2017 Blood Pressure 1: 136/82 Code: 8480-6 BMI: 25.7 Code: 55508-6 Heart Rate 1: 78 bpm Height: 5'7" SpO2: 97% Weight: 164 lbs 10/28/2017 Height: 5'7" 12/18/2015 Blood Pressure 1: 140/68 Code: 8480-6 BMI: 25.7 Code: 35198-6 Heart Rate 1: 83 bpm Height: 5'7" SpO2: 95% Weight: 164 lbs 10/11/2015 Blood Pressure 1: 128/80 Code: 8480-6 BMI: 26.0 Code: 92838-3 Heart Rate 1: 80 bpm Height: 5'7" SpO2: 97% Waist Measure (cm): 89 cm Weight: 166 lbs 01/16/2015 Blood Pressure 1: 122/84 Code: 8480-6 BMI: 25.7 Code: 16232-1 Heart Rate 1: 68 bpm Height: 5'7" SpO2: 95% Weight: 164 lbs 08/02/2014 Blood Pressure 1: 140/86 Code: 8480-6 BMI: 25.1 Code: 44876-5 Heart Rate 1: 64 bpm Height: 5'7" Weight: 160 lbs 03/02/2013 Blood Pressure 1: 108/74 Code: 8480-6 BMI: 28.3 Code: 51696-6 Heart Rate 1: 80 bpm Height: 5'7" Weight: 181 lbs 09/30/2012 Blood Pressure 1: 126/74 Code: 8480-6 Heart Rate 1: 64 bpm Weight: 07/07/2012 Blood Pressure 1: 130/84 Code: 8480-6 BMI: 26.6 Code: 90819-6 Heart Rate 1: 80 bpm Height: 5'7" [...] 1: 110/68 Code: 8480-6 BMI: 25.7 Code: 40732-4 Heart Rate 1: 68 bpm Height: 5'7" [...] data Encounters Encounter Performer Location Codes Date [id number] EST. PATIENT, LEVEL III Diagnosis: Other schizophrenia[ICD10: F20.89] Diagnosis: Generalized anxiety disorder[ICD10: F41.1] Diagnosis: Major depressive disorder, single episode, moderate[ICD10: F32.1] Susan Vitale MD, [facility] CPT-4: 79487 11/05/2017 [id number] EST. PATIENT, LEVEL III Diagnosis: Encounter for follow-up examination after completed treatment for conditions other than malignant neoplasm[ICD10: Z09] Susan Vitale MD, [facility] CPT-4: 12118 12/18/2015 [id number] EST. PATIENT, LEVEL IV Diagnosis: Cellulitis of right lower limb[ICD10: L03.115] Diagnosis: Vitamin B12 deficiency anemia due to intrinsic factor deficiency[ICD10: D51.0] Loren Vitale MD, [facility] CPT-4: 12844 12/04/2015 ([id number]) Miscellaneous no charge Diagnosis: Vitamin B deficiency, unspecified[ICD10: E53.9] Loren Vitale MD, [facility] CPT-4: 85606 07/31/2015 ([id number]) 33854 EST. PATIENT, LEVEL IV Diagnosis: Schizophrenia[ICD9: 295.90] Diagnosis: DEPRESSIVE DISORDER NEC[ICD9: 311] Diagnosis: Medication dose changed[ICD9: V58.69] Diagnosis: Leg pain[ICD9: 729.5] Loren Vitale MD, [facility] CPT-4: 40396 01/16/2015 ([id number]) 23080 EST. PATIENT, LEVEL III Diagnosis: Rash[ICD9: 782.1] Camille Vitale MD, [facility] CPT-4: 84627 08/02/2014 ([id number]) Miscellaneous no charge Diagnosis: SCHIZO NOS, CHRN[ICD9: 295.92] Loren Vitale MD, [facility] CPT-4: 26160 05/03/2013 ([id number]) 97857 EST. PATIENT, LEVEL III Diagnosis: Rash[ICD9: 782.1] Diagnosis: B-COMPLEX DEFIC NEC[ICD9: 266.2] Loren Vitale MD, [facility] CPT-4: 10194 09/30/2012 [id number]) [id number] EST. PATIENT, LEVEL IV Diagnosis: SCHIZO NOS, CHRN[ICD9: 295.92] Diagnosis: DEMEN NOS W/O BEHV DSTRB[ICD9: 294.20] Loren Vitale MD, [facility] CPT-4: 85596 07/07/2012 [id number]) 17182 EST. PATIENT, LEVEL IV Diagnosis: DEMEN NOS W/O BEHV DSTRB[ICD9: 294.20] Diagnosis: SCHIZO NOS, CHRN[ICD9: 295.92] Diagnosis: Vitamin B 12 deficiency[ICD9: 266.2] Loren Vitale MD, [facility] CPT- 4: 52505 01/07/2012 ([id number]) 38059 EST. PATIENT, LEVEL IV Diagnosis: DEMEN NOS W/O BEHV DSTRB[ICD9: 294.20] Diagnosis: ALTERED MENTAL STATUS[ICD9: 780.97] Diagnosis: Myalgia[ICD9: 729.1] Loren Vitale MD, [facility] CPT-4: 89236 12/17/2011 [id number]) 57763 EST. PATIENT, LEVEL IV Diagnosis: Orthostatic hypotension[ICD9: 458.0] Diagnosis: Hypokalemia[ICD9: 276.8] Diagnosis: DEMEN NOS W/O BEHV DSTRB[ICD9: 294.20] Diagnosis: SCHIZO NOS, CHRN[ICD9: 295.92] Diagnosis: ALTERED MENTAL STATUS[ICD9: 780.97] Camille Vitale MD, [facility] CPT-4: 62233 12/10/2011 OFFICE/OUTPATIENT VISIT NEW Diagnosis: Schizophrenia, chronic condition[ICD9: 295.92] Diagnosis: Encounter for long-term (current) use of other high-risk medications[ICD9: V58.69] [facility] CPT-4: 89327 11/26/2011 Plan of Care Planned Activity Notes Codes Status Date Patient Education: Patient Medication Summary Completed 11/02/2018 [...] medications. 11/05/2017 [phone] [id number] ([facility] 11/05/2017 Patient Education: Patient Medication Summary Completed [...] pain. 12/18/2015 Appointment: [facility] [phone] [id number] ([facility] min) Complex 12/18/2015 Patient Education: Patient Medication Summary Completed [...] pain. 12/04/2015 Appointment: [facility] [phone] [id number] (10 min) Simple 12/04/2015 Patient Education: Patient [...] paperwork for health care surrogate. 10/11/2015 Appointment: [facility] - Annual Wellness Visit 10/11/2015 Patient [...] check labs. 01/16/2015 Appointment: Loren Vitale [facility]el[facility] ([facility] min) Moderate 01/16/2015 Patient Education: Patient Medication Summary Completed 01/16/2015 Appointment: Injection 01/02/2015 Patient Education: Patient Medication Summary Completed 01/02/2015 Patient Education: Patient Medication Summary Completed 11/28/2014 Patient Education: Patient Medication Summary Completed 10/31/2014 Patient Education: Patient Medication Summary Completed 10/03/2014 Patient Education: Patient Medication Summary Completed 08/30/2014 Visit Plan: Vzpk-rakecjac-gdxxddbajaqsq cream to affected area twice daily as directed-call if rash does not completely resolve B12 deficiency-B12 injection today in the office 08/02/2014 Appointment: [facility] [phone] [phone] [facility] 08/02/2014 Patient Education: Patient Medication Summary Completed 08/02/2014 Patient Education: Patient Medication Summary Completed 07/04/2014 Patient Education: Patient Medication Summary Completed 05/30/2014 Appointment: [facility] [phone] [id number] [place] Injection 05/02/2014 Patient Education: Patient Medication Summary Completed 05/02/2014 Patient Education: Patient Medication Summary Completed 04/05/2014 Appointment: [facility] [phone] [phone] [place] Injection 03/07/2014 Patient Education: Patient Medication Summary Completed 03/07/2014 Appointment: [facility] [phone] [id number] [place] [facility] 02/01/2014 Patient Education: Patient Medication Summary Completed 02/01/2014 Appointment: Loren Vitale WPtel: [id number] [place] 12/30/2013 Patient Education: Patient Medication Summary Completed 12/30/2013 Appointment: Loren Vitale WPtel: [id number] [place] 11/30/2013 Patient Education: Patient Medication Summary Completed 11/30/2013 Appointment: Camille Devi WPtel: [phone] [place] In[facility] 11/02/2013 Patient Education: Patient Medication Summary Completed 11/02/2013 Appointment: Loren Vitale WPtel: [id number] [place] 09/28/2013 Appointment: Loren Vitale WPtel: [id number] [place] 08/31/2013 Patient Education: Patient Medication Summary Completed 08/31/2013 Patient Education: Patient Medication Summary Completed 08/04/2013 Appointment: Loren Vitale WPtel: [id number] [place] 08/03/2013 Appointment: Loren Vitale WPtel: [id number] [place] 07/06/2013 Patient Education: Patient Medication Summary Completed 07/06/2013 Appointment: Cam[facility] Devi [facility] [phone] [phone] [place] Injection 05/31/2013 Patient Education: Patient Medication Summary Completed 05/31/2013 Appointment: [facility] [phone] [phone] [place] Injection 05/04/2013 Patient Education: Patient [...] psychiatrist. 05/03/2013 Appointment: [facility]el: [phone] [facility] [place] Other 05/03/2013 Patient Education: Patient Medication Summary Completed 05/03/2013 Appointment: [facility] [phone] [phone] [place] Injection 03/30/2013 Patient Education: Patient [...] is to see Dr. Treviño at [facility]. 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 03/02/2013 Appointment: Loren Vitale [facility]Ptel: [phone] [id number] [place] Follow up 03/02/2013 Patient Education: Patient Medication Summary Completed 03/02/2013 Appointment: [facility] Vitale [facility]Ptel: [phone] [id number] [place] Injection 02/02/2013 Patient Education: Patient Medication Summary Completed 02/02/2013 Patient Education: Patient Medication Summary Completed 12/29/2012 Appointment: [facility] [phone] [phone] [place] Injection 12/01/2012 Patient Education: Patient Medication Summary Completed 12/01/2012 Appointment: [facility]el: [phone] [id number] [place] [facility] 11/03/2012 Patient Education: Patient Medication Summary Completed 11/03/2012 Visit Plan: Rash-discussed natural and expected course of this diagnosis and to alert me if symptoms do not follow expected course, or if any worse. RX sent to patient's pharmacy and instructed on use. B12 def-injection today in the office 09/30/2012 Appointment: Loren Vitale [facility]Ptel: [phone] [id number] [place] Other 09/30/2012 Patient Education: Patient Medication Summary Completed 09/30/2012 Patient Education: Patient Medication Summary Completed 09/08/2012 Appointment: [facility] Dev[facility] [phone] [phone] [place] Injection 08/25/2012 Patient Education: Patient Medication Summary Completed 08/25/2012 Appointment: [facility] Vitale [facility]Ptel: [phone] [id number] [place] [facility] 08/11/2012 Patient Education: Patient Medication Summary Completed 08/11/2012 Appointment: Loren Vitale [facility]Ptel: [phone] [id number] [place] 07/21/2012 Patient Education: Patient Medication [...] is to see Dr. Treviño at [facility]. 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 07/07/2012 Appointment: Loren Vitale [facility]Ptel: [phone] [id number] [place] Follow up 07/07/2012 Patient Education: Patient Medication Summary Completed 07/07/2012 Patient Education: Patient Medication Summary Completed 06/25/2012 Patient Education: Patient Medication Summary Completed 06/09/2012 Patient Education: Patient Medication Summary Completed 05/25/2012 Appointment: Loren Vitale WPtel: [phone] [id number] [place] 05/12/2012 Patient Education: Patient Medication Summary Completed 05/12/2012 Patient Education: Patient Medication Summary Completed 04/20/2012 Appointment: Cam[facility] Devi [facility] [phone] [phone] [place] Injection 04/07/2012 Patient Education: Patient Medication Summary Completed 04/07/2012 Appointment: Cam[facility] Dev[facility] [phone] [phone] [place] Injection 03/24/2012 Appointment: Cam[facility] Devi [facility]el[facility] [phone] [phone] [place] Injection 03/10/2012 Patient Education: Patient Medication Summary Completed 03/10/2012 Appointment: Loren Vitale [facility]Ptel: [phone] [id number] [place] 02/18/2012 Patient Education: Patient Medication Summary Completed 02/18/2012 Appointment: Loren Vitale [facility]Ptel: [phone] [id number] [place] Injection 02/04/2012 Patient Education: Patient Medication Summary Completed 02/04/2012 Appointment: Loren Vitale [facility]Ptel: [phone] [id number] [place] 01/21/2012 Patient Education: Patient Medication [...] normal. 01/07/2012 Appointment: Loren Vitale WPtel: [phone] [facility] Other 01/07/2012 Patient Education: Patient Medication Summary [...] ahold of Juan's psychiatrist who is in [place], but he is apparently on vacation to the [facility] and may not respond until he gets back in December. I think that Juan's medications need adjusted and that is the largest part of his new symptoms. 12/17/2011 Appointment: [facility] Vit[facility]el[facility] [phone] [id number] [place] 12/17/2011 Patient Education: Patient Medication Summary [...] assistance. 12/10/2011 Appointment: [facility] [phone] [phone] [facility]-in 12/10/2011 Patient Education: Patient Medication [...] expressed understanding. 11/26/2011 Appointment: Loren Vitale [facility]Ptel: [phone] [id number] [place] New Patient 11/26/2011 Patient Education: Patient Medication Summary Completed 11/26/2011 Instructions Comment . Dementia with Behaviors - I have [...] disease state. The patient/family expressed understanding. . Vascular Dementia - Pt with slowly progressive pattern. I have discussed with pt and family the prognosis of this disease state and the need for the family to anticipate further decline with behavior changes. Continue with current plan of treatment. Schizophrenia - pt to continue with his current medications. He is to see Dr. Treviño at [facility]. 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 . Pt's brother was explained to that [...] ahold of Juan's psychiatrist who is in [place], but he is apparently on vacation to the [facility] and may not respond until he gets back in December. I think that Juan's medications need adjusted and that is the largest part of his new symptoms. . Lyhj-ngwagpmm-upinaqfxqvbre cream to affected area twice daily as directed-call if rash does not completely resolve B12 deficiency-B12 injection today in the office . Rash-discussed natural and expected course of this diagnosis and to alert me if symptoms do not follow expected course, or if any worse. RX sent to patient's pharmacy and instructed on use. B12 def-injection today in the office . Abscess/Cellulitis - right inner thigh lesion [...] keep his B12 levels at normal. . Schizophrenia - continue with chronic home [...] with them about assistance. . Abscess/Cellulitis - The patient was instructed [...] is to see Dr. Treviño at [facility]. 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 . Discussed with Rubén that Juan does [...] Leg pain - need to check labs. . Medicare Exam - today we discussed [...]
--- OUTSIDE RECORDS SUMMARY | 2018-12-22 15:42 | XMS REPORT | CCD ---
Author Author Loren Vitale MD, [facility] Address [address] [place] [address] Phone Care Team Providers Care Nib Inspector Name Role Phone PP Unavailable CCM Unavailable Summary Purpose Interface Exchange Insurance Providers Payer name Policy type / Coverage type Covered democrat ID Effective Begin Date Effective End Date WPS Medicare Part B Medicare Part B [id number] 2013 Unknown [place] [employer] Medicare Part B [id number] Unknown Family history Sister Diagnosis Age At Onset No Family Disease Entered N/A First cousin Diagnosis Age At Onset No Family Disease Entered N/A Mother Diagnosis Age At Onset Dementia Unknown Social History Social History Element Codes Description Effective Dates Marital status Unknown Single 11/26/[address]: 76529391 Current every day smoker 2 packs daily 11/26/[address]: 388473625 Never drinks alcohol 11/26/2011 Has the patient ever used illegal drugs? Unknown Has never used illegal drugs 11/26/2011 Allergies, Adverse Reactions, Alerts Allergies, Adverse Reactions, Alerts data not found Past Medical History Illness Codes Condition Status Onset Date Resolved Date Vitamin B deficiency, unspecified ICD-9: 266.2 ICD-10: E53.9 Active 01/28/2016 Unknown Vitamin B12 deficiency anemia due to intrinsic factor deficiency ICD-9: 281.0 ICD-10: D51.0 Active 07/01/2016 Unknown Other vitamin B12 deficiency anemias ICD-9: 281.1 ICD-10: D51.8 Active 06/02/2016 Unknown Encounter for follow-up examination after completed treatment for conditions other than malignant neoplasm ICD-9: V67.9 ICD-10: Z09 Active 12/17/2015 Unknown Cellulitis of right lower limb ICD-9: 682.6 ICD-10: L03.115 Active 12/03/2015 Unknown Encounter for general adult medical examination without abnormal findings ICD-9: V70.0 ICD-10: Z00.00 Active 10/10/2015 Unknown Vitamin B12 deficiency anemia, unspecified ICD-9: 281.1 ICD-10: D51.9 Active 2015 Unknown Depression Unknown Active 01/16/2015 Unknown DEPRESSIVE [...] Condition Codes Effective Dates Condition Status Vitamin B deficiency, unspecified ICD-9: 266.2 ICD-10: E53.9 01/28/2016 Active Vitamin B12 deficiency anemia due to intrinsic factor deficiency ICD-9: 281.0 ICD-10: D51.0 07/01/2016 Active Other vitamin B12 deficiency anemias ICD-9: 281.1 ICD-10: D51.8 06/02/2016 Active Encounter for follow-up examination after completed treatment for conditions other than malignant neoplasm ICD-9: V67.9 ICD-10: Z09 12/17/2015 Active Cellulitis of right lower limb ICD-9: 682.6 ICD-10: L03.115 12/03/2015 Active Encounter for general adult medical examination without abnormal findings ICD-9: V70.0 ICD-10: Z00.00 10/10/2015 Active Vitamin B12 deficiency anemia, unspecified ICD-9: 281.1 ICD-10: D51.9 2015 Active Depression Unknown 01/16/2015 Active DEPRESSIVE DISORDER [...] (vit B-12) 1,000 mcg/mL injection solution RxNorm: 320257 1 Milliliter(s) Inj 12/30/2016 12/30/2016 Inactive cyanocobalamin (vit B-12) 1,000 mcg/mL injection solution RxNorm: 550279 1 Milliliter(s) Inj 12/02/2016 12/02/2016 Inactive Wellbutrin SR 100 mg tablet,sustained-release RxNorm: 973923 TAKE ONE TABLET BY MOUTH EVERY NIGHT AT BEDTIME 10/30/2016 04/27/2017 Active cyanocobalamin (vit B-12) 1,000 mcg/mL injection solution RxNorm: 770323 Milliliter(s) Inj 10/29/2016 10/29/2016 Inactive cyanocobalamin (vit B-12) 1,000 mcg/mL injection solution RxNorm: 280905 1 Milliliter(s) Inj 10/01/2016 10/01/2016 Inactive cyanocobalamin (vit B-12) 1,000 mcg/mL injection solution RxNorm: 921159 Milliliter(s) Inj 09/02/2016 09/02/2016 Inactive cyanocobalamin (vit B-12) 1,000 mcg/mL injection solution RxNorm: 983770 Milliliter(s) Inj 08/05/2016 08/05/2016 Inactive cyanocobalamin (vit B-12) 1,000 mcg/mL injection solution RxNorm: 786804 1 Milliliter(s) Inj 07/02/2016 07/02/2016 Inactive cyanocobalamin (vit B-12) 1,000 mcg/mL injection solution RxNorm: 594002 Milliliter(s) Inj 06/03/2016 06/03/2016 Inactive cyanocobalamin (vit B-12) 1,000 mcg/mL injection solution RxNorm: 612539 Milliliter(s) Inj 2016 2016 Inactive Wellbutrin SR 100 mg tablet,sustained-release RxNorm: 548984 1 Tablet(s) PO QHS 04/01/2016 10/27/2016 Inactive cyanocobalamin (vit B-12) 1,000 mcg/mL injection solution RxNorm: 142530 Milliliter(s) Inj 04/01/2016 04/01/2016 Inactive cyanocobalamin (vit B-12) 1,000 mcg/mL injection solution RxNorm: 319514 1 Milliliter(s) Inj 03/05/2016 03/05/2016 Inactive cyanocobalamin (vit B-12) 1,000 mcg/mL injection solution RxNorm: 885590 Milliliter(s) Inj 01/29/2016 01/29/2016 Inactive cyanocobalamin (vit B-12) 1,000 mcg/mL injection solution RxNorm: 318057 Milliliter(s) Inj 01/02/2016 01/02/2016 Inactive mupirocin 2 % topical ointment RxNorm: 061721 1 Application TOP BID 12/04/2015 No Stop Date Active doxycycline hyclate 100 mg capsule RxNorm: 2872573 1 Capsule(s) PO BID 12/04/2015 12/13/2015 Inactive cyanocobalamin (vit B-12) 1,000 mcg/mL injection solution RxNorm: 017107 Milliliter(s) Inj 10/30/2015 10/30/2015 Inactive cyanocobalamin (B12)-cobamamide 5,000 mcg-100 mcg sublingual tablet RxNorm: 580294 Tablet(s) SL 10/02/2015 10/02/2015 Inactive Wellbutrin SR 100 mg tablet,sustained-release RxNorm: 296926 1 Tablet(s) PO QHS 09/08/2015 03/31/2016 Inactive cyanocobalamin (vit B-12) 1,000 mcg/mL injection solution RxNorm: 248223 Milliliter(s) Inj 08/29/2015 08/29/2015 Inactive cyanocobalamin (vit B-12) 1,000 mcg/mL injection solution RxNorm: 476726 Milliliter(s) Inj 07/31/2015 07/31/2015 Inactive cyanocobalamin (vit B-12) 1,000 mcg/mL injection solution RxNorm: 381371 Milliliter(s) Inj 06/05/2015 06/05/2015 Inactive cyanocobalamin (vit B-12) 1,000 mcg/mL injection solution RxNorm: 110794 Milliliter(s) Inj 05/01/2015 05/01/2015 Inactive cyanocobalamin (vit B-12) 1,000 mcg/mL injection solution RxNorm: 024627 Milliliter(s) Inj 04/03/2015 04/03/2015 Inactive cyanocobalamin (vit B-12) 1,000 mcg/mL injection solution RxNorm: 404730 Milliliter(s) Inj 02/28/2015 02/28/2015 Inactive cyanocobalamin (vit B-12) 1,000 mcg/mL injection solution RxNorm: 274358 Milliliter(s) Inj 01/30/2015 01/30/2015 Inactive Wellbutrin SR 100 mg tablet,sustained-release RxNorm: 212981 1 Tablet(s) PO QHS 01/16/2015 08/13/2015 Inactive cyanocobalamin (vit B-12) 1,000 mcg/mL injection solution RxNorm: 625525 1 Milliliter(s) Inj 01/02/2015 01/02/2015 Inactive cyanocobalamin (vit B-12) 1,000 mcg/mL injection solution RxNorm: 812712 1 Milliliter(s) Inj 11/28/2014 11/28/2014 Inactive cyanocobalamin (vit B-12) 1,000 mcg/mL injection solution RxNorm: 630953 Milliliter(s) Inj 10/31/2014 10/31/2014 Inactive [SAVINGS FOR NON-COVERED DRUGS -- BIN:618086, PCN: ASPROD1, Group: XXXXX, ID# [id number], Questions: . THIS IS NOT INSURANCE.] cyanocobalamin (vit B-12) 1,000 mcg/mL injection solution RxNorm: 311072 1 Milliliter(s) Inj daily 10/03/2014 10/03/2014 Inactive [SAVINGS FOR NON-COVERED DRUGS -- BIN:478367, PCN: ASPROD1, Group: XXXXX, ID# [id number], Questions: . THIS IS NOT INSURANCE.] cyanocobalamin (vit B-12) 1,000 mcg/mL injection solution RxNorm: 600678 Milliliter(s) Inj 08/30/2014 08/30/2014 Inactive [SAVINGS FOR NON-COVERED DRUGS -- BIN:386016, PCN: ASPROD1, Group: XXXXX, ID# [id number], Questions: . THIS IS NOT INSURANCE.] nystatin-triamcinolone 100,000 unit/g-0.1 % topical cream RxNorm: 8170638 1 Application TOP BID 08/02/2014 08/08/2014 Inactive [SAVINGS FOR UNINSURED PATIENTS -- BIN:801501, PCN: ASPROD1, Group: [id number], ID# [id number], Process claim through MedImpact, for questions: . THIS IS NOT INSURANCE.] cyanocobalamin (vit B-12) 1,000 mcg/mL injection solution RxNorm: 013868 Milliliter(s) Inj 08/02/2014 08/02/2014 Inactive [SAVINGS FOR UNINSURED PATIENTS -- BIN:417454, PCN: ASPROD1, Group: [id number], ID# [id number], Process claim through MedImp[employer], for questions: . THIS IS NOT INSURANCE.] cyanocobalamin (vit B-12) 1,000 mcg/mL injection kit RxNorm: 553633 Milliliter(s) Inj 07/04/2014 07/04/2014 Inactive [SAVINGS FOR UNINSURED PATIENTS -- BIN:199124, PCN: ASPROD1, Group: [id number], ID# [id number], Process claim through Foursquare, for questions: . THIS IS NOT INSURANCE.] cyanocobalamin (vit B-12) 1,000 mcg/mL injection solution RxNorm: 398585 Milliliter(s) Inj 05/30/2014 05/30/2014 Inactive cyanocobalamin (vit B-12) 1,000 mcg/mL injection solution RxNorm: 559160 Milliliter(s) Inj 05/02/2014 05/02/2014 Inactive cyanocobalamin (vit B-12) 1,000 mcg/mL injection solution RxNorm: 294889 Milliliter(s) Inj 04/05/2014 04/05/2014 Inactive cyanocobalamin (vit B-12) 1,000 mcg/mL injection solution RxNorm: 352480 Milliliter(s) Inj 03/07/2014 03/07/2014 Inactive cyanocobalamin (vit B-12) 1,000 mcg/mL injection solution RxNorm: 413923 1 Milliliter(s) Inj 02/01/2014 02/01/2014 Inactive cyanocobalamin (vit B-12) 1,000 mcg/mL injection solution RxNorm: 342123 1 Milliliter(s) Inj 12/30/2013 12/30/2013 Inactive [SAVINGS FOR UNINSURED PATIENTS -- BIN:287557, PCN: ASPROD1, Group: [id number], ID# [id number], Process claim through Foursquare, for questions: . THIS IS NOT INSURANCE.] cyanocobalamin (vit B-12) 1,000 mcg/mL injection solution RxNorm: 257574 Milliliter(s) Inj 11/30/2013 11/30/2013 Inactive cyanocobalamin (vit B-12) 1,000 mcg/mL injection solution RxNorm: 196508 1 Milliliter(s) Inj 11/02/2013 11/02/2013 Inactive Vitamin B-12 1,000 mcg/mL injection solution RxNorm: 679237 Milliliter(s) Inj 08/31/2013 08/31/2013 Inactive Vitamin B-12 1,000 mcg/mL injection solution RxNorm: 380359 1 Milliliter(s) Inj 08/04/2013 08/04/2013 Inactive Vitamin B-12 1,000 mcg/mL injection solution RxNorm: 056833 Milliliter(s) Inj 07/06/2013 07/06/2013 Inactive cyanocobalamin (vit B-12) 1,000 mcg/mL injection solution RxNorm: 604668 Milliliter(s) Inj 05/31/2013 05/31/2013 Inactive cyanocobalamin (vit B-12) 1,000 mcg/mL injection kit RxNorm: 098111 Milliliter(s) Inj 05/04/2013 05/04/2013 Inactive cyanocobalamin (vitamin B-12) 1,000 mcg/mL Injection RxNorm: 811765 Milliliter(s) Inj 03/30/2013 03/30/2013 Inactive cyanocobalamin (vitamin B-12) 1,000 mcg/mL Injection RxNorm: 550381 Milliliter(s) Inj 02/02/2013 02/02/2013 Inactive cyanocobalamin (vitamin B-12) 1,000 mcg/mL Injection RxNorm: 530997 Milliliter(s) Inj 12/29/2012 12/29/2012 Inactive cyanocobalamin (vitamin B-12) 1,000 mcg/mL Injection RxNorm: 062350 Milliliter(s) Inj 12/01/2012 12/01/2012 Inactive Vitamin B-12 1,000 mcg tablet RxNorm: 163383 Tablet(s) PO 11/03/2012 11/03/2012 Inactive Vitamin B-12 1,000 mcg/mL Injection RxNorm: 005607 1 Milliliter(s) Inj 09/30/2012 09/30/2012 Inactive triamcinolone acetonide 0.1 % Topical Cream RxNorm: 9356083 1 Application TOP BID 09/30/2012 10/13/2012 Inactive Vitamin B-12 1,000 mcg/mL Injection RxNorm: 028468 1 Milliliter(s) Inj 09/08/2012 09/08/2012 Inactive cyanocobalamin (vitamin B-12) 1,000 mcg/mL Injection RxNorm: 388431 1 Milliliter(s) Inj 08/25/2012 08/25/2012 Inactive cyanocobalamin (vitamin B-12) 1,000 mcg/mL Injection RxNorm: 482564 1 Milliliter(s) Inj 08/11/2012 08/11/2012 Inactive cyanocobalamin (vitamin B-12) 1,000 mcg/mL Injection RxNorm: 393723 1 Milliliter(s) Inj 07/21/2012 07/21/2012 Inactive Vitamin B-12 1,000 mcg/mL Injection RxNorm: 457162 Milliliter(s) Inj 07/07/2012 07/07/2012 Inactive cyanocobalamin (vitamin B-12) 1,000 mcg/mL Injection RxNorm: 446555 1 Milliliter(s) Inj 06/25/2012 06/25/2012 Inactive Vitamin B-12 1,000 mcg/mL Injection RxNorm: 107872 1 Milliliter(s) Inj 06/09/2012 06/09/2012 Inactive Vitamin B-12 1,000 mcg/mL Injection RxNorm: 272938 Milliliter(s) Inj 05/25/2012 05/25/2012 Inactive Vitamin B-12 1,000 mcg/mL Injection RxNorm: 411522 Milliliter(s) Inj 05/12/2012 05/12/2012 Inactive Vitamin B-12 1,000 mcg/mL Injection RxNorm: 901131 Milliliter(s) Inj 04/20/2012 04/20/2012 Inactive Vitamin B-12 1,000 mcg/mL Injection RxNorm: 083668 Milliliter(s) Inj 04/07/2012 04/07/2012 Inactive Vitamin B-12 1,000 mcg/mL Injection RxNorm: 573542 Milliliter(s) Inj 03/10/2012 03/10/2012 Inactive Vitamin B-12 1,000 mcg/mL Injection RxNorm: 009943 Milliliter(s) Inj 02/18/2012 02/18/2012 Inactive Vitamin B-12 1,000 mcg/mL Injection RxNorm: 066464 Milliliter(s) Inj 02/04/2012 02/04/2012 Inactive Vitamin B-12 1,000 mcg/mL Injection RxNorm: 206503 Milliliter(s) Inj 01/21/2012 01/21/2012 Inactive Vitamin B-12 1,000 mcg/mL Injection RxNorm: 660122 Milliliter(s) Inj 01/07/2012 01/07/2012 Inactive Vitamin B-12 1,000 mcg/mL Injection RxNorm: 922066 Milliliter(s) Inj 12/17/2011 12/17/2011 Inactive KCL 10 meq RxNorm: 1 PO daily 12/12/2011 12/16/2011 Inactive Vitamin B-12 1,000 mcg/mL Injection RxNorm: 784094 1 Milliliter(s) Inj monthly No Start Date Active Wellbutrin SR 200 mg Tab RxNorm: 910516 1 Tablet(s) PO daily No Start Date Active Anafranil 25 mg Cap RxNorm: 267770 1 Capsule(s) PO daily No Start Date Active Stelazine 5 mg Tab RxNorm: 050080 1 Tablet(s) PO BID No Start Date Active clonazepam 1 mg Tab RxNorm: 191604 1 Tablet(s) PO BID No Start Date Active risperidone 3 mg Tab RxNorm: 271446 Tablet(s) PO No Start Date Active 2 on even days 3 on odd days Cogentin 1 mg Tab RxNorm: 120557 1 Tablet(s) PO TID No Start Date Active Medication Administered Medication Codes Instructions Start Date Status cyanocobalamin (vit B-12) 1,000 mcg/mL injection solution RxNorm: 349534 1Milliliter 12/30/2016 Active cyanocobalamin (vit B-12) 1,000 mcg/mL injection solution RxNorm: 778887 1Milliliter 12/02/2016 No longer Active cyanocobalamin (vit B-12) 1,000 mcg/mL injection solution RxNorm: 150092 Milliliter 10/29/2016 No longer Active cyanocobalamin (vit B-12) 1,000 mcg/mL injection solution RxNorm: 797599 1Milliliter 10/01/2016 No longer Active cyanocobalamin (vit B-12) 1,000 mcg/mL injection solution RxNorm: 693382 Milliliter 09/02/2016 No longer Active cyanocobalamin (vit B-12) 1,000 mcg/mL injection solution RxNorm: 869080 Milliliter 08/05/2016 No longer Active cyanocobalamin (vit B-12) 1,000 mcg/mL injection solution RxNorm: 377952 1Milliliter 07/02/2016 No longer Active cyanocobalamin (vit B-12) 1,000 mcg/mL injection solution RxNorm: 024697 Milliliter 06/03/2016 No longer Active cyanocobalamin (vit B-12) 1,000 mcg/mL injection solution RxNorm: 688201 Milliliter 2016 No longer Active cyanocobalamin (vit B-12) 1,000 mcg/mL injection solution RxNorm: 841024 Milliliter 04/01/2016 No longer Active cyanocobalamin (vit B-12) 1,000 mcg/mL injection solution RxNorm: 142981 1Milliliter 03/05/2016 No longer Active cyanocobalamin (vit B-12) 1,000 mcg/mL injection solution RxNorm: 759513 Milliliter 01/29/2016 No longer Active cyanocobalamin (vit B-12) 1,000 mcg/mL injection solution RxNorm: 081678 Milliliter 01/02/2016 No longer Active cyanocobalamin (vit B-12) 1,000 mcg/mL injection solution RxNorm: 905705 Milliliter 10/30/2015 No longer Active cyanocobalamin (B12)-cobamamide 5,000 mcg-100 mcg sublingual tablet RxNorm: 199465 Tablet 10/02/2015 No longer Active cyanocobalamin (vit B-12) 1,000 mcg/mL injection solution RxNorm: 232636 Milliliter 08/29/2015 No longer Active cyanocobalamin (vit B-12) 1,000 mcg/mL injection solution RxNorm: 407770 Milliliter 07/31/2015 No longer Active cyanocobalamin (vit B-12) 1,000 mcg/mL injection solution RxNorm: 914774 Milliliter 06/05/2015 No longer Active cyanocobalamin (vit B-12) 1,000 mcg/mL injection solution RxNorm: 745211 Milliliter 05/01/2015 No longer Active cyanocobalamin (vit B-12) 1,000 mcg/mL injection solution RxNorm: 384526 Milliliter 04/03/2015 No longer Active cyanocobalamin (vit B-12) 1,000 mcg/mL injection solution RxNorm: 831657 Milliliter 02/28/2015 No longer Active cyanocobalamin (vit B-12) 1,000 mcg/mL injection solution RxNorm: 766596 Milliliter 01/30/2015 No longer Active cyanocobalamin (vit B-12) 1,000 mcg/mL injection solution RxNorm: 346576 1Milliliter 01/02/2015 No longer Active cyanocobalamin (vit B-12) 1,000 mcg/mL injection solution RxNorm: 779298 1Milliliter 11/28/2014 No longer Active cyanocobalamin (vit B-12) 1,000 mcg/mL injection solution RxNorm: 469457 Milliliter 10/31/2014 No longer Active cyanocobalamin (vit B-12) 1,000 mcg/mL injection solution RxNorm: 677340 1Milliliterdaily 10/03/2014 No longer Active cyanocobalamin (vit B-12) 1,000 mcg/mL injection solution RxNorm: 064690 Milliliter 08/30/2014 No longer Active cyanocobalamin (vit B-12) 1,000 mcg/mL injection solution RxNorm: 587355 Milliliter 08/02/2014 No longer Active cyanocobalamin (vit B-12) 1,000 mcg/mL injection kit RxNorm: 461478 Milliliter 07/04/2014 No longer Active cyanocobalamin (vit B-12) 1,000 mcg/mL injection solution RxNorm: 939140 Milliliter 05/30/2014 No longer Active cyanocobalamin (vit B-12) 1,000 mcg/mL injection solution RxNorm: 776206 Milliliter 05/02/2014 No longer Active cyanocobalamin (vit B-12) 1,000 mcg/mL injection solution RxNorm: 589323 Milliliter 04/05/2014 No longer Active cyanocobalamin (vit B-12) 1,000 mcg/mL injection solution RxNorm: 757172 Milliliter 03/07/2014 No longer Active cyanocobalamin (vit B-12) 1,000 mcg/mL injection solution RxNorm: 912797 1Milliliter 02/01/2014 No longer Active cyanocobalamin (vit B-12) 1,000 mcg/mL injection solution RxNorm: 025334 1Milliliter 12/30/2013 No longer Active cyanocobalamin (vit B-12) 1,000 mcg/mL injection solution RxNorm: 482260 Milliliter 11/30/2013 No longer Active cyanocobalamin (vit B-12) 1,000 mcg/mL injection solution RxNorm: 924554 1Milliliter 11/02/2013 No longer Active Vitamin B-12 1,000 mcg/mL injection solution RxNorm: 728940 Milliliter 08/31/2013 No longer Active Vitamin B-12 1,000 mcg/mL injection solution RxNorm: 756879 1Milliliter 08/04/2013 No longer Active Vitamin B-12 1,000 mcg/mL injection solution RxNorm: 389665 Milliliter 07/06/2013 No longer Active cyanocobalamin (vit B-12) 1,000 mcg/mL injection solution RxNorm: 711663 Milliliter 05/31/2013 No longer Active cyanocobalamin (vit B-12) 1,000 mcg/mL injection kit RxNorm: 351651 Milliliter 05/04/2013 No longer Active cyanocobalamin (vitamin B-12) 1,000 mcg/mL Injection RxNorm: 942403 Milliliter 03/30/2013 No longer Active cyanocobalamin (vitamin B-12) 1,000 mcg/mL Injection RxNorm: 264459 Milliliter 02/02/2013 No longer Active cyanocobalamin (vitamin B-12) 1,000 mcg/mL Injection RxNorm: 803707 Milliliter 12/29/2012 No longer Active cyanocobalamin (vitamin B-12) 1,000 mcg/mL Injection RxNorm: 774793 Milliliter 12/01/2012 No longer Active Vitamin B-12 1,000 mcg tablet RxNorm: 396611 Tablet 11/03/2012 No longer Active Vitamin B-12 1,000 mcg/mL Injection RxNorm: 216888 1Milliliter 09/30/2012 No longer Active Vitamin B-12 1,000 mcg/mL Injection RxNorm: 575489 1Milliliter 09/08/2012 No longer Active cyanocobalamin (vitamin B-12) 1,000 mcg/mL Injection RxNorm: 745345 1Milliliter 08/25/2012 No longer Active cyanocobalamin (vitamin B-12) 1,000 mcg/mL Injection RxNorm: 461900 1Milliliter 08/11/2012 No longer Active cyanocobalamin (vitamin B-12) 1,000 mcg/mL Injection RxNorm: 194728 1Milliliter 07/21/2012 No longer Active Vitamin B-12 1,000 mcg/mL Injection RxNorm: 536986 Milliliter 07/07/2012 No longer Active cyanocobalamin (vitamin B-12) 1,000 mcg/mL Injection RxNorm: 798726 1Milliliter 06/25/2012 No longer Active Vitamin B-12 1,000 mcg/mL Injection RxNorm: 313023 1Milliliter 06/09/2012 No longer Active Vitamin B-12 1,000 mcg/mL Injection RxNorm: 583938 Milliliter 05/25/2012 No longer Active Vitamin B-12 1,000 mcg/mL Injection RxNorm: 796553 Milliliter 05/12/2012 No longer Active Vitamin B-12 1,000 mcg/mL Injection RxNorm: 987739 Milliliter 04/20/2012 No longer Active Vitamin B-12 1,000 mcg/mL Injection RxNorm: 855673 Milliliter 04/07/2012 No longer Active Vitamin B-12 1,000 mcg/mL Injection RxNorm: 705942 Milliliter 03/10/2012 No longer Active Vitamin B-12 1,000 mcg/mL Injection RxNorm: 871048 Milliliter 02/18/2012 No longer Active Vitamin B-12 1,000 mcg/mL Injection RxNorm: 958319 Milliliter 02/04/2012 No longer Active Vitamin B-12 1,000 mcg/mL Injection RxNorm: 150975 Milliliter 01/21/2012 No longer Active Vitamin B-12 1,000 mcg/mL Injection RxNorm: 471908 Milliliter 01/07/2012 No longer Active Vitamin B-12 1,000 mcg/mL Injection RxNorm: 320903 Milliliter 12/17/2011 No longer Active Immunizations Vaccine Codes Date Status Influenza CVX: 141 05/01/2016 completed PPD Unknown 07/31/2015 completed Influenza CVX: 141 05/04/2013 completed PPD Unknown 05/03/2013 completed Pneumococcal CVX: 33 11/04/2012 completed Tetanus/Diptheria CVX: 28 11/04/2012 completed Assessments Condition Codes Effective Dates Vitamin B deficiency, unspecified ICD-10: E53.9 ICD-9: 266.2 12/30/2016 Vitamin B12 deficiency anemia due to 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 12/02/2016 Other vitamin B12 deficiency anemias ICD-10: D51.8 ICD-9: 281.1 09/02/2016 Encounter for follow-up examination after completed treatment for conditions other than malignant neoplasm ICD-10: Z09 ICD-9: V67.9 12/18/2015 Cellulitis of right lower limb ICD-10: L03.115 ICD-9: 682.6 12/04/2015 Encounter for general adult medical examination without abnormal findings ICD-10: Z00.00 ICD-9: V70.0 10/11/2015 Vitamin B12 deficiency anemia, unspecified ICD-10: D51.9 ICD-9: 281.1 05/01/2015 Vitamin B 12 deficiency ICD-9: 266.2 02/28/2015 [...] Visit Reason For Visit Effective Dates Notes sores 12/18/2015 sores 12/04/2015 Annual Medicare Wellness Exam 10/11/2015 leg pain/sciatica 01/16/2015 right side skin lesion 08/02/2014 vaccination against influenza 05/04/2013 psychosis 03/02/2013 rash 09/30/2012 memory loss 07/07/2012 memory loss 01/07/2012 memory loss 12/17/2011 mental status change 12/10/2011 memory loss 11/26/2011 Results Observation Observation Code Item Item Code Result Date B12 [id number] B12 637.00 pg/ml 07/31/2015 FOLIC ACID 5963056 FOLIC ACID >24.0 NG/ML 08/25/2012 VIT B 12 1673203 VIT B 12 1591 PG/ML 08/25/2012 HOMOCYS 3481626 HOMOCYS 6.8 UMOL/L 08/25/2012 TSH 2447621 TSH 1.386 uIU/ML 07/07/2012 CBC 2644393 WBC 6.4 10e9/L 07/07/2012 CBC 3963334 RBC 4.92 10e12/L 07/07/2012 CBC 0139971 HGB 15.0 g/dL 07/07/2012 CBC 9831994 HCT DET 43.3 % 07/07/2012 CBC 8913058 MCV 88.0 fL 07/07/2012 CBC 4387120 MCH 30.5 pg 07/07/2012 CBC 2545220 MCHC 34.6 g/dL 07/07/2012 CBC 7098962 PLT 180 10e9/L 07/07/2012 CBC 5070202 MPV 10.0 fL 07/07/2012 CBC 0876006 KENRICK % 59.0 % 07/07/2012 CBC 5981581 LY % 24.1 % 07/07/2012 CBC 5191401 MON % 12.5 % 07/07/2012 CBC 4038069 EOS % 4.1 % 07/07/2012 CBC 4778344 BASO % 0.3 % 07/07/2012 CBC 3715066 RDW 13.4 % 07/07/2012 CBC 2034618 ABS KENRICK 3.78 10e9/L 07/07/2012 CBC 8296445 ABS LYMPH 1.54 10e9/L 07/07/2012 CBC 7842151 ABS MONO 0.80 10e9/L 07/07/2012 CBC 4222305 ABS EOS 0.26 10e9/L 07/07/2012 CBC 4600841 ABS BASO 0.02 10e9/L 07/07/2012 CBC 1406883 RDW-SD 42.9 fL 07/07/2012 CHEM 14 2054685 AST 29 U/L 07/07/2012 CHEM 14 9844161 ALT 29 U/L 07/07/2012 CHEM 14 4099583 BUN 9 MG/DL 07/07/2012 CHEM 14 6438309 ALBUMIN 4.1 GM/DL 07/07/2012 CHEM 14 8867971 CHLORIDE 103 MMOL/L 07/07/2012 CHEM 14 4255881 BILI TOT 0.3 MG/DL 07/07/2012 CHEM 14 3741922 ALK PHOS 88 U/L 07/07/2012 CHEM 14 1123029 SODIUM 141 MMOL/L 07/07/2012 CHEM 14 5719691 CREATININE 1.38 MG/DL 07/07/2012 CHEM 14 1321323 CALCIUM 9.3 MG/DL 07/07/2012 CHEM 14 6805599 POTASSIUM 3.7 MMOL/L 07/07/2012 CHEM 14 9469338 PROT TOT 6.4 GM/DL 07/07/2012 CHEM 14 4265686 GLUCOSE 76 MG/DL 07/07/2012 CHEM 14 8574868 BICARB 28 MMOL/L 07/07/2012 CHEM 14 1771071 ANION GAP 10 MMOL/L 07/07/2012 GFR CALC 8387918 GFR AA >60 ML/MIN 07/07/2012 GFR CALC 9344908 GFR NON-AA 52.0L ML/MIN 07/07/2012 B12 FOLAT 3715572 VIT B 12 211 PG/ML 12/10/2011 B12 FOLAT 3836460 FOLIC ACID 3.9 NG/ML 12/10/2011 GFR CALC 7163728 GFR AA >60 ML/MIN 12/10/2011 GFR CALC 1331970 GFR NON-AA >60 ML/MIN 12/10/2011 CPK [id number] CPK 135 U/L 12/10/2011 CHEM 14 5579494 AST 62 U/L 12/10/2011 CHEM 14 6656657 ALT 114 U/L 12/10/2011 CHEM 14 6995259 BUN 10 MG/DL 12/10/2011 CHEM 14 2163536 ALBUMIN 3.7 GM/DL 12/10/2011 CHEM 14 7840566 CHLORIDE 103 MMOL/L 12/10/2011 CHEM 14 0877059 BILI TOT 0.5 MG/DL 12/10/2011 CHEM 14 4116148 ALK PHOS 129 U/L 12/10/2011 CHEM 14 3399319 SODIUM 140 MMOL/L 12/10/2011 CHEM 14 5109948 CREATININE 1.17 MG/DL 12/10/2011 CHEM 14 3186362 CALCIUM 8.8 MG/DL 12/10/2011 CHEM 14 0364269 POTASSIUM 3.4 MMOL/L 12/10/2011 CHEM 14 6941965 PROT TOT 5.8 GM/DL 12/10/2011 CHEM 14 1319676 GLUCOSE 84 MG/DL 12/10/2011 CHEM 14 9509465 BICARB 26 MMOL/L 12/10/2011 CHEM 14 [id number] ANION GAP 11 MMOL/L 12/10/2011 URINALYSIS NONAUTO W/O SCOPE 51877 Specific [place] 1.005 DateTime(Free Text in Aprima) URINALYSIS NONAUTO W/O SCOPE 27335 PH 6 DateTime(Free Text in Aprima) URINALYSIS NONAUTO W/O SCOPE 56491 GLUCOSE neg DateTime(Free Text in Aprima) URINALYSIS NONAUTO W/O SCOPE 53456 Protein neg DateTime(Free Text in Aprima) URINALYSIS NONAUTO W/O SCOPE 11409 Blood neg DateTime(Free Text in Aprima) URINALYSIS NONAUTO W/O SCOPE 66759 Bilirubin neg DateTime(Free Text in Aprima) URINALYSIS NONAUTO W/O SCOPE 13159 Ketones neg DateTime(Free Text in Aprima) URINALYSIS NONAUTO W/O SCOPE 72239 Urobilinogen neg DateTime(Free Text in Aprima) URINALYSIS NONAUTO W/O SCOPE 46745 Nitrite neg DateTime(Free Text in Aprima) URINALYSIS NONAUTO W/O SCOPE 70980 Leukocytes neg DateTime(Free Text in Aprima) URINALYSIS NONAUTO W/O SCOPE 97672 Specific [place] 1.010 DateTime(Free Text in Aprima) URINALYSIS NONAUTO W/O SCOPE 85148 PH 6.5 DateTime(Free Text in Aprima) URINALYSIS NONAUTO W/O SCOPE 93304 GLUCOSE neg DateTime(Free Text in Aprima) URINALYSIS NONAUTO W/O SCOPE 32556 Protein neg DateTime(Free Text in Aprima) URINALYSIS NONAUTO W/O SCOPE 26577 Blood neg DateTime(Free Text in Aprima) URINALYSIS NONAUTO W/O SCOPE 44346 Bilirubin neg DateTime(Free Text in Aprima) URINALYSIS NONAUTO W/O SCOPE 40333 Ketones neg DateTime(Free Text in Aprima) URINALYSIS NONAUTO W/O SCOPE 66258 Urobilinogen neg DateTime(Free Text in Aprima) URINALYSIS NONAUTO W/O SCOPE 40068 Nitrite neg DateTime(Free Text in Aprima) URINALYSIS NONAUTO W/O SCOPE 06305 Leukocytes neg DateTime(Free Text in Apr) Review of Systems System Result Effective Dates Constitutional No fever 12/18/2015 Eyes No eye [...] recall three words at five minutes 01/16/2015 [facility] exam points Full Exam - General 1994 [...] patch middle forehead Full Exam - General 1994 Ears/Nose/Throat otoscopic exam Overall: external auditory canals clear 03/02/2013 None Full Exam - General 1994 Ears/Nose/Throat otoscopic exam Overall: tympanic membranes clear 03/02/2013 None Full Exam - General 1995 Ears/Nose/Throat oral cavity/pharynx/larynx Overall: oral mucosa clear 03/02/2013 None Full Exam - General 1994 Ears/Nose/Throat oral cavity/pharynx/larynx Overall: oropharyngeal mucosa clear 03/02/2013 None Full Exam - General 1995 Ears/Nose/Throat oral cavity/pharynx/larynx Overall: no masses 03/02/2013 None Full Exam - General 1995 Respiratory auscultation Overall: breath sounds clear bilaterally 03/02/2013 None Full Exam - General 1995 Respiratory respiratory effort/rhythm Overall: no retractions 03/02/2013 None Full Exam - General 1995 Respiratory respiratory effort/rhythm Overall: normal rate 03/02/2013 None Full Exam - General 1995 Cardiovascular extremities Overall: no clubbing 03/02/2013 None Full Exam - General 1995 Cardiovascular extremities Edema present: pitting 03/02/2013 None Full Exam - General 1995 Cardiovascular extremities Edema present: severity 1+ - 4+: _ 03/02/2013 None Full Exam - General 1995 Cardiovascular extremities Edema present: to knees 03/02/2013 None Full Exam - General 1995 [...] accomodation 03/02/2013 None Full Exam - General 1994 [...] lordosis 03/02/2013 None Full Exam - General 1994 [...] unsteadiness 03/02/2013 None Full Exam - General 1994 [...] events 03/02/2013 None Full Exam - General 1994 Psychiatric cognition/memory Recent past memory: unable to recall recent news events 03/02/2013 None Full Exam - General 1994 Psychiatric cognition/memory Immediate memory: unable to repeat 6 digits 03/02/2013 None Full Exam - General 1994 Psychiatric cognition/memory Immediate memory: unable to recall three words at five minutes 03/02/2013 [facility] exam points Full Exam - Dermatology Constitutional [...] nourished 07/07/2012 None Full Exam - General 1995 Eyes conjunctiva/eyelids Overall: conjunctiva clear 07/07/2012 None Full Exam - General 1995 Eyes conjunctiva/eyelids Overall: cornea clear 07/07/2012 None Full Exam - General 1995 Eyes conjunctiva/eyelids Overall: eyelids normal 07/07/2012 None Full Exam - General 1995 Eyes pupils and irises Overall: pupils equal, round, reactive to light and accomodation 07/07/2012 None Full Exam - General 1995 Respiratory auscultation Overall: breath sounds clear bilaterally 07/07/2012 None Full Exam - General 1995 Respiratory respiratory effort/rhythm Overall: no retractions 07/07/2012 None Full Exam - General 1995 Respiratory respiratory effort/rhythm Overall: normal rate 07/07/2012 None Full Exam - General 1995 Cardiovascular extremities Overall: no clubbing 07/07/2012 None [...] II/ 07/07/2012 None Full Exam - General 1994 Abdomen abdominal exam Overall: no tenderness 07/07/2012 None Full Exam - General 1994 Abdomen abdominal exam Overall: normal bowel sounds 07/07/2012 None Full Exam - General 1994 Abdomen liver and spleen exam Overall: no hepatosplenomegaly 07/07/2012 None Full Exam - General 1994 Abdomen liver and spleen exam Overall: no stigmata of chronic liver disease 07/07/2012 None Full Exam - General 1994 Musculoskeletal spine, ribs and pelvis Posture: lordosis 07/07/2012 None Full Exam - General 1994 Musculoskeletal head and neck Overall: head atraumatic 07/07/2012 None Full Exam - General 1994 Musculoskeletal head and neck Overall: cervical spine benign 07/07/2012 None Full Exam - General 1994 Neurologic deep tendon reflexes Overall: deep tendon reflexes intact 07/07/2012 None Full Exam - General 1994 Neurologic gait Overall: no ataxia, no unsteadiness 07/07/2012 None Full Exam - General 1994 Neurologic [...] recall three words at five minutes 07/07/2012 [facility] exam points Full Exam - General 1995 [...] retractions 01/07/2012 None Full Exam - General 1995 Respiratory respiratory effort/rhythm Overall: normal rate 01/07/2012 None Full Exam - General 1995 Cardiovascular extremities Overall: no clubbing 01/07/2012 None Full Exam - General 1995 Cardiovascular extremities Edema present: pitting 01/07/2012 None Full Exam - General 1995 Cardiovascular extremities Edema present: severity 1+ - 4+: _ 01/07/2012 None Full Exam - General 1995 Cardiovascular extremities Edema present: to knees 01/07/2012 None Full Exam - General 1995 Cardiovascular auscultation of heart Overall: regular rate 01/07/2012 None Full Exam - General 1994 Cardiovascular auscultation of heart Systolic murmur grade: II/ 01/07/2012 None Full Exam - General 1995 Abdomen abdominal exam Overall: no tenderness 01/07/2012 [...] lordosis 01/07/2012 None Full Exam - General 1994 Musculoskeletal head and neck Overall: head atraumatic 01/07/2012 None Full Exam - General 1994 Musculoskeletal head and neck Overall: cervical spine benign 01/07/2012 None Full Exam - General 1994 Neurologic deep tendon reflexes Overall: deep tendon reflexes intact 01/07/2012 None Full Exam - General 1994 Neurologic gait Overall: no ataxia, no unsteadiness 01/07/2012 None Full Exam - General 1994 Neurologic [...] recall three words at five minutes 01/07/2012 [facility] exam points Full Exam - General 1994 [...] lordosis 12/17/2011 None Full Exam - General 1995 Musculoskeletal head and neck Overall: head atraumatic 12/17/2011 None Full Exam - General 1994 Musculoskeletal head and neck Overall: cervical spine benign 12/17/2011 None Full Exam - General 1994 Neurologic deep tendon reflexes Overall: deep tendon reflexes intact 12/17/2011 None Full Exam - General 1995 Neurologic gait Overall: no ataxia, no unsteadiness 12/17/2011 None Full Exam - General 1994 Neurologic cranial nerves Overall: crainial nerves 2 - 12 grossly intact 12/17/2011 None Full Exam - General 1994 Psychiatric orientation/consciousness Overall: oriented to person, place and time 12/17/2011 None Full Exam - General 1995 Psychiatric mood and affect Mood: happy 12/17/2011 [...] recall three words at five minutes 12/17/2011 [facility] exam points Full Exam - General 1994 [...] gingiva 12/10/2011 None Full Exam - General 1995 Ears/Nose/Throat lips/teeth/gingiva Overall: no masses 12/10/2011 None Full Exam - General 1994 Ears/Nose/Throat oral cavity/pharynx/larynx Overall: oral mucosa clear 12/10/2011 None Full Exam - General 1995 [...] rate 12/10/2011 None Full Exam - General 1995 Cardiovascular auscultation of heart Systolic murmur grade: II/ 12/10/2011 None Full Exam - General 1995 Abdomen abdominal exam Overall: no tenderness 12/10/2011 None Full Exam - General 1995 Abdomen abdominal exam Overall: normal bowel sounds 12/10/2011 None Full Exam - General 1995 Abdomen liver and spleen exam Overall: no hepatosplenomegaly 12/10/2011 None Full Exam - General 1995 Abdomen liver and spleen exam Overall: no stigmata of chronic liver disease 12/10/2011 None Full Exam - General 1995 Lymphatic neck nodes Overall: posterior cervical chain benign 12/10/2011 None Full Exam - General 1995 Lymphatic neck nodes Anterior cervical chain: soft 12/10/2011 None Full Exam - General 1995 Lymphatic neck nodes Anterior cervical chain: non-tender [...] intact 12/10/2011 None Full Exam - General 1994 Neurologic gait Overall: no ataxia, no unsteadiness 12/10/2011 None Full Exam - General 1995 Neurologic cranial nerves Overall: crainial nerves 2 - 12 grossly intact 12/10/2011 None Full Exam - General 1994 Psychiatric orientation/consciousness Overall: oriented to person, place and time 12/10/2011 None Full Exam - General 1994 Psychiatric mood and affect Mood: happy 12/10/2011 None Full Exam - General 1994 Psychiatric mood and affect Affect: mood congruent 12/10/2011 None Full Exam - General 1994 [...] recall three words at five minutes 12/10/2011 [facility] exam points Full Exam - General 1994 [...] gingiva 11/26/2011 None Full Exam - General 1994 Ears/Nose/Throat lips/teeth/gingiva Overall: no masses 11/26/2011 None Full Exam - General 1994 Ears/Nose/Throat lips/teeth/gingiva Overall: normal dentition 11/26/2011 None Full Exam - General 1994 Ears/Nose/Throat lips/teeth/gingiva Overall: benign lips 11/26/2011 None Full Exam - General 1994 [...] recall three words at five minutes 11/26/2011 [facility] exam points Procedures Procedure Codes Date TOBACCO-USE EMERGENCY MANAGEMENT COORDINATOR 3-[address]: 825675909 CPT-4: M7843Gxjpsek 12/30/2016 THER/PROPH/DIAG INJ SC/IM CPT-4: 59006Aozjdvg 12/30/2016 VITAMIN B12 INJECTION CPT-4: M9829Icafrij 12/30/2016 THER/PROPH/DIAG INJ SC/IM CPT-4: 95145Cdmpobr 12/02/2016 VITAMIN B12 INJECTION CPT-4: K2818Iwuprfh 12/02/2016 THER/PROPH/DIAG INJ SC/IM CPT-4: 06025Lpjovpp 10/29/2016 VITAMIN B12 INJECTION CPT-4: O8693Klytvwq 10/29/2016 THER/PROPH/DIAG INJ SC/IM CPT-4: 16270Baebxyp 10/01/2016 VITAMIN B12 INJECTION CPT-4: E2452Xrivogt 10/01/2016 TOBACCO-USE EMERGENCY MANAGEMENT COORDINATOR 3-[address]: 651565694 CPT-4: W7612Ohfmfkb 09/02/2016 VITAMIN B12 INJECTION CPT-4: K2058Hwrgccg 09/02/2016 THER/PROPH/DIAG INJ SC/IM CPT-4: 85906Gkhuhsq 09/02/2016 THER/PROPH/DIAG INJ SC/IM CPT-4: 40929Whiuucs 08/05/2016 VITAMIN B12 INJECTION CPT-4: O8498Edvjrsl 08/05/2016 THER/PROPH/DIAG INJ SC/IM CPT-4: 07080Tjcjsle 07/02/2016 VITAMIN B12 INJECTION CPT-4: T4059Iyhyloo 07/02/2016 VITAMIN B12 INJECTION CPT-4: F0254Zftjwag 06/03/2016 THER/PROPH/DIAG INJ SC/IM CPT-4: 58227Cidqbwx 06/03/2016 THER/PROPH/DIAG INJ SC/IM CPT-4: 92152Qcswhul 2016 VITAMIN B12 INJECTION CPT-4: A7959Xtapntr 2016 THER/PROPH/DIAG INJ SC/IM CPT-4: 52912Ukvkmuy 04/01/2016 VITAMIN B12 INJECTION CPT-4: Q4519Pgsvyqw 04/01/2016 VITAMIN B12 INJECTION CPT-4: A1534Lqlledp 03/05/2016 THER/PROPH/DIAG INJ SC/IM CPT-4: 24136Iktmdxd 03/05/2016 TOBACCO-USE EMERGENCY MANAGEMENT COORDINATOR 3-[address]: 087748111 CPT-4: W2512Geuxqzk 01/29/2016 THER/PROPH/DIAG INJ SC/IM CPT-4: 56958Hywmexy 01/29/2016 VITAMIN B12 INJECTION CPT-4: M8293Vpoctys 01/29/2016 THER/PROPH/DIAG INJ SC/IM CPT-4: 57074Mlxczlb 01/02/2016 VITAMIN B12 INJECTION CPT-4: B0621Agagpid 01/02/2016 VITAMIN B12 INJECTION CPT-4: Y5532Itzappd 12/04/2015 THER/PROPH/DIAG INJ SC/IM CPT-4: 31098Nxqpiot 12/04/2015 THER/PROPH/DIAG INJ SC/IM CPT-4: 76100Dgidqof 10/30/2015 VITAMIN B12 INJECTION CPT-4: S3637Qkluwii 10/30/2015 PPPS, SUBSEQ VISIT CPT-4: K4130Nmtorup 10/11/2015 TOBACCO-USE EMERGENCY MANAGEMENT COORDINATOR 3-[address]: 770047579 CPT-4: J5828Rnndciv 10/11/2015 TOBACCO-USE EMERGENCY MANAGEMENT COORDINATOR 3-[address]: 962186227 CPT-4: H2805Dpazrir 10/02/2015 THER/PROPH/DIAG INJ SC/IM CPT-4: 94482Osmhrqi 10/02/2015 VITAMIN B12 INJECTION CPT-4: W9180Ruudime 10/02/2015 THER/PROPH/DIAG INJ SC/IM CPT-4: 41968Achjmvg 08/29/2015 VITAMIN B12 INJECTION CPT-4: Q5413Yfqihjw 08/29/2015 THER/PROPH/DIAG INJ SC/IM CPT-4: 67551Pitunhe 07/31/2015 VITAMIN B12 INJECTION CPT-4: C2422Dnwfpfa 07/31/2015 THER/PROPH/DIAG INJ SC/IM CPT-4: 76239Ywjhepk 07/03/2015 VITAMIN B12 INJECTION CPT-4: D9836Sckuqio 07/03/2015 THER/PROPH/DIAG INJ SC/IM CPT-4: 54279Vowaasr 06/05/2015 VITAMIN B12 INJECTION CPT-4: N5344Htesbmw 06/05/2015 VITAMIN B12 INJECTION CPT-4: Y5757Wdpbawb 05/01/2015 THER/PROPH/DIAG INJ SC/IM CPT-4: 84280Qnmwvgj 05/01/2015 THER/PROPH/DIAG INJ SC/IM CPT-4: 68216Shnoexa 04/03/2015 VITAMIN B12 INJECTION CPT-4: U5707Sbuwtbl 04/03/2015 THER/PROPH/DIAG INJ SC/IM CPT-4: 01965Upuykuk 02/28/2015 VITAMIN B12 INJECTION CPT-4: M8082Ogisoxo 02/28/2015 THER/PROPH/DIAG INJ SC/IM CPT-4: 05968Bucddpg 01/30/2015 VITAMIN B12 INJECTION CPT-4: X7082Sdmpktm 01/30/2015 VITAMIN B12 INJECTION CPT-4: O3481Hoharwz 01/02/2015 THER/PROPH/DIAG INJ SC/IM CPT-4: 87751Rwycbag 01/02/2015 THER/PROPH/DIAG INJ SC/IM CPT-4: 93008Vylwcqo 11/28/2014 VITAMIN B12 INJECTION CPT-4: S4768Eedxrbm 11/28/2014 THER/PROPH/DIAG INJ SC/IM CPT-4: 06401Vcjtvto 10/31/2014 VITAMIN B12 INJECTION CPT-4: F3671Tqzgeue 10/31/2014 THER/PROPH/DIAG INJ SC/IM CPT-4: 63964Fhtidaw 10/03/2014 VITAMIN B12 INJECTION CPT-4: G4584Wqytbmr 10/03/2014 THER/PROPH/DIAG INJ SC/IM CPT-4: 64362Zjwhqwk 08/30/2014 VITAMIN B12 INJECTION CPT-4: H2126Wggwfrd 08/30/2014 THER/PROPH/DIAG INJ SC/IM CPT-4: 42871Ebdubvi 08/02/2014 VITAMIN B12 INJECTION CPT-4: Z2671Zghnqus 08/02/2014 THER/PROPH/DIAG INJ SC/IM CPT-4: 07521Fwytisp 07/04/2014 VITAMIN B12 INJECTION CPT-4: U9905Mcenuxy 07/04/2014 THER/PROPH/DIAG INJ SC/IM CPT-4: 01887Kxkvshr 05/30/2014 VITAMIN B12 INJECTION CPT-4: L1124Suwdcdq 05/30/2014 THER/PROPH/DIAG INJ SC/IM CPT-4: 29510Cirhnea 05/02/2014 VITAMIN B12 INJECTION CPT-4: R6470Mgskosp 05/02/2014 THER/PROPH/DIAG INJ SC/IM CPT-4: 36571Mcujpua 04/05/2014 THER/PROPH/DIAG INJ SC/IM CPT-4: 01980Zyriaha 03/07/2014 VITAMIN B12 INJECTION CPT-4: Q5456Cpmwutw 03/07/2014 THER/PROPH/DIAG INJ SC/IM CPT-4: 49100Ofhrfpy 02/01/2014 VITAMIN B12 INJECTION CPT-4: L9361Tojkojc 02/01/2014 VITAMIN B12 INJECTION CPT-4: U0695Bybheja 12/30/2013 THER/PROPH/DIAG INJ SC/IM CPT-4: 85748Rlynoab 12/30/2013 THER/PROPH/DIAG INJ SC/IM CPT-4: 55917Xjhlzuw 11/30/2013 VITAMIN B12 INJECTION CPT-4: R2628Lxuhbzs 11/30/2013 THER/PROPH/DIAG INJ SC/IM CPT-4: 55098Uztikmh 11/02/2013 VITAMIN B12 INJECTION CPT-4: J5157Tfhbzsr 11/02/2013 THER/PROPH/DIAG INJ SC/IM CPT-4: 00412Fbahwum 08/31/2013 VITAMIN B12 INJECTION CPT-4: A8095Bbiehlq 08/31/2013 THER/PROPH/DIAG INJ SC/IM CPT-4: 84924Fsvohbl 08/04/2013 VITAMIN B12 INJECTION CPT-4: J1822Usvdudt 08/04/2013 VITAMIN B12 INJECTION CPT-4: D6270Plltkze 07/06/2013 THER/PROPH/DIAG INJ SC/IM CPT-4: 50348Ymmlnxp 07/06/2013 THER/PROPH/DIAG INJ SC/IM CPT-4: 74454Spnpgit 05/31/2013 VITAMIN B12 INJECTION CPT-4: W5932Dpvqxss 05/31/2013 ADMIN INFLUENZA VIRUS VAC CPT-4: W2871Aluvwct 05/04/2013 FLULAVAL VACC, 3 YRS & >, IM CPT-4: X8642Pfhqbmv 05/04/2013 THER/PROPH/DIAG INJ SC/IM CPT-4: 26288Hpxawez 05/04/2013 VITAMIN B12 INJECTION CPT-4: J0583Dctciev 05/04/2013 THER/PROPH/DIAG INJ SC/IM CPT-4: 61448Nhdqyew 03/30/2013 VITAMIN B12 INJECTION CPT-4: A1216Ufghovn 03/30/2013 THER/PROPH/DIAG INJ SC/IM CPT-4: 71684Maezavm 03/02/2013 VITAMIN B12 INJECTION CPT-4: R5550Boxqbav 03/02/2013 [id number] EST. PATIENT, LEVEL IV CPT-4: 98055Blblgek 03/02/2013 THER/PROPH/DIAG INJ SC/IM CPT-4: 29269Lyicder 02/02/2013 VITAMIN B12 INJECTION CPT-4: C3486Zocryng 02/02/2013 THER/PROPH/DIAG INJ SC/IM CPT-4: 07320Nanaiua 12/29/2012 VITAMIN B12 INJECTION CPT-4: D9805Dgpzczo 12/29/2012 TRIAMCINOLONE ACET INJ NOS CPT-4: T0259Efprwbj 12/01/2012 VITAMIN B12 INJECTION CPT-4: G4150Askgpkg 12/01/2012 VITAMIN B12 INJECTION CPT-4: V4266Viqlaaw 11/03/2012 THER/PROPH/DIAG INJ SC/IM CPT-4: 15810Uqzfgma 11/03/2012 THER/PROPH/DIAG INJ SC/IM CPT-4: 57925Uxwnpmi 09/30/2012 VITAMIN B12 INJECTION CPT-4: J3737Svnjodt 09/30/2012 PRESCRIP TRANSMIT VIA ERX SY CPT-4: Z6624Deyeazs 09/30/2012 VITAMIN B12 INJECTION CPT-4: P2406Btftudx 09/08/2012 THER/PROPH/DIAG INJ SC/IM CPT-4: 54397Tbealdt 09/08/2012 THER/PROPH/DIAG INJ SC/IM CPT-4: 72248Sqxmnok 08/25/2012 ROUTINE VENIPUNCTURE CPT-4: 96174Hgyegip 08/25/2012 VITAMIN B12 INJECTION CPT-4: P5502Hkhjxrg 08/25/2012 THER/PROPH/DIAG INJ SC/IM CPT-4: 75281Jhosglo 08/11/2012 VITAMIN B12 INJECTION CPT-4: Q2001Zhjmgze 08/11/2012 VITAMIN B12 INJECTION CPT-4: Z1533Selecwz 07/21/2012 THER/PROPH/DIAG INJ SC/IM CPT-4: 10205Zzsierp 07/21/2012 THER/PROPH/DIAG INJ SC/IM CPT-4: 33397Zzvakqh 07/07/2012 VITAMIN B12 INJECTION CPT-4: Q2945Bnzgrnx 07/07/2012 ROUTINE VENIPUNCTURE CPT-4: 26230Ovltlas 07/07/2012 VITAMIN B12 INJECTION CPT-4: I6787Hqhuxbi 06/25/2012 THER/PROPH/DIAG INJ SC/IM CPT-4: 47642Tldklxu 06/25/2012 VITAMIN B12 INJECTION CPT-4: Y7476Sahrjtt 06/09/2012 THER/PROPH/DIAG INJ SC/IM CPT-4: 52126Jhsyrlj 06/09/2012 VITAMIN B12 INJECTION CPT-4: J7788Jhbrmms 05/25/2012 THER/PROPH/DIAG INJ SC/IM CPT-4: 07913Celruyx 05/25/2012 VITAMIN B12 INJECTION CPT-4: P6694Loqnlle 05/12/2012 THER/PROPH/DIAG INJ SC/IM CPT-4: 94737Kbqxlzb 05/12/2012 VITAMIN B12 INJECTION CPT-4: F6558Uknkapv 04/20/2012 THER/PROPH/DIAG INJ SC/IM CPT-4: 40880Xlepxnn 04/20/2012 THER/PROPH/DIAG INJ SC/IM CPT-4: 54837Truonzn 04/07/2012 VITAMIN B12 INJECTION CPT-4: S3587Jwibrlt 04/07/2012 VITAMIN B12 INJECTION CPT-4: R0448Yrhstod 03/10/2012 THER/PROPH/DIAG INJ SC/IM CPT-4: 15037Hkewomj 03/10/2012 VITAMIN B12 INJECTION CPT-4: T8598Xxkrtss 02/18/2012 THER/PROPH/DIAG INJ SC/IM CPT-4: 24698Tdsqwjl 02/18/2012 THER/PROPH/DIAG INJ SC/IM CPT-4: 64232Pojjzsh 02/04/2012 VITAMIN B12 INJECTION CPT-4: A3584Kfkvmtr 02/04/2012 THER/PROPH/DIAG INJ SC/IM CPT-4: 16878Zsozyuh 01/21/2012 VITAMIN B12 INJECTION CPT-4: B8019Rrvptkx 01/21/2012 VITAMIN B12 INJECTION CPT-4: B5051Zgpfzsy 01/07/2012 VITAMIN B12 INJECTION CPT-4: Y6786Ulwijhc 12/17/2011 URINALYSIS NONAUTO W/O SCOPE CPT-4: 03139Apaokoz 12/10/2011 ROUTINE VENIPUNCTURE CPT-4: 67852Fmqmdlz 12/10/2011 URINALYSIS NONAUTO W/O SCOPE CPT-4: 36809Zjibuih 11/26/2011 Vital Signs Date Vital 12/18/2015 Blood Pressure 1: 140/68 Code: 8480-6 BMI: 25.7 Code: 49997-8 Heart Rate 1: 83 bpm Height: 5'7" SpO2: 95% Weight: 164 lbs 10/11/2015 Blood Pressure 1: 128/80 Code: 8480-6 BMI: 26.0 Code: 96440-7 Heart Rate 1: 80 bpm Height: 5'7" SpO2: 97% Waist Measure (cm): 89 cm Weight: 166 lbs 01/16/2015 Blood Pressure 1: 122/84 Code: 8480-6 BMI: 25.7 Code: 07439-6 Heart Rate 1: 68 bpm Height: 5'7" SpO2: 95% Weight: 164 lbs 08/02/2014 Blood Pressure 1: 140/86 Code: 8480-6 BMI: 25.1 Code: 11612-9 Heart Rate 1: 64 bpm Height: 5'7" Weight: 160 lbs 03/02/2013 Blood Pressure 1: 108/74 Code: 8480-6 BMI: 28.3 Code: 90384-3 Heart Rate 1: 80 bpm Height: 5'7" Weight: 181 lbs 09/30/2012 Blood Pressure 1: 126/74 Code: 8480-6 Heart Rate 1: 64 bpm Weight: 07/07/2012 Blood Pressure 1: 130/84 Code: 8480-6 BMI: 26.6 Code: 09605-3 Heart Rate 1: 80 bpm Height: 5'7" [...] 1: 110/68 Code: 8480-6 BMI: 25.7 Code: 01125-6 Heart Rate 1: 68 bpm Height: 5'7" Weight: 164 lbs Functional Status No Functional Status data History of Present Illness Symptom Name Status Result Effective Date Notes sores Quality acute 12/18/2015 None sores Quality [...] data Encounters Encounter Performer Location Codes Date 31822 EST. PATIENT, LEVEL III Diagnosis: Encounter for follow-up examination after completed treatment for conditions other than malignant neoplasm[ICD10: Z09] [facility] CPT-4: 04187 12/18/2015 [id number] EST. PATIENT, LEVEL IV Diagnosis: Cellulitis of right lower limb[ICD10: L03.115] Diagnosis: Vitamin B12 deficiency anemia due to intrinsic factor deficiency[ICD10: D51.0] [facility] CPT-4: 90833 12/04/2015 ([id number]) Miscellaneous no charge Diagnosis: Vitamin B deficiency, unspecified[ICD10: E53.9] Loren Vitale MD, [facility] CPT-4: 71735 07/31/2015 ([id number]) 45396 EST. PATIENT, LEVEL IV Diagnosis: Schizophrenia[ICD9: 295.90] Diagnosis: DEPRESSIVE DISORDER NEC[ICD9: 311] Diagnosis: Medication dose changed[ICD9: V58.69] Diagnosis: Leg pain[ICD9: 729.5] Loren Vitale MD, [facility] CPT-4: 56872 01/16/2015 ([id number]) 66735 EST. PATIENT, LEVEL III Diagnosis: Rash[ICD9: 782.1] Camille Vitale MD, [facility] CPT-4: 76776 08/02/2014 ([id number]) Miscellaneous no charge Diagnosis: SCHIZO NOS, CHRN[ICD9: 295.92] Loren Vitale MD, [facility] CPT-4: 85086 05/03/2013 ([id number]) 88404 EST. PATIENT, LEVEL III Diagnosis: Rash[ICD9: 782.1] Diagnosis: B-COMPLEX DEFIC NEC[ICD9: 266.2] Loren Vitale MD, [facility] CPT-4: 56064 09/30/2012 ([id number]) 01626 EST. PATIENT, LEVEL IV Diagnosis: SCHIZO NOS, CHRN[ICD9: 295.92] Diagnosis: DEMEN NOS W/O BEHV DSTRB[ICD9: 294.20] Loren Vitale MD, [facility] CPT-4: 76482 07/07/2012 ([id number]) 59953 EST. PATIENT, LEVEL IV Diagnosis: DEMEN NOS W/O BEHV DSTRB[ICD9: 294.20] Diagnosis: SCHIZO NOS, CHRN[ICD9: 295.92] Diagnosis: Vitamin B 12 deficiency[ICD9: 266.2] Loren Vitale MD, [facility] CPT- 4: 34413 01/07/2012 ([id number]) 21579 EST. PATIENT, LEVEL IV Diagnosis: DEMEN NOS W/O BEHV DSTRB[ICD9: 294.20] Diagnosis: ALTERED MENTAL STATUS[ICD9: 780.97] Diagnosis: Myalgia[ICD9: 729.1] [facility] CPT-4: 83989 12/17/2011 ([id number]) [id number] EST. PATIENT, LEVEL IV Diagnosis: Orthostatic hypotension[ICD9: 458.0] Diagnosis: Hypokalemia[ICD9: 276.8] Diagnosis: DEMEN NOS W/O BEHV DSTRB[ICD9: 294.20] Diagnosis: SCHIZO NOS, CHRN[ICD9: 295.92] Diagnosis: ALTERED MENTAL STATUS[ICD9: 780.97] [facility] CPT-4: 62027 12/10/2011 OFFICE/OUTPATIENT VISIT NEW Diagnosis: Schizophrenia, chronic condition[ICD9: 295.92] Diagnosis: Encounter for long-term (current) use of other high-risk medications[ICD9: V58.69] [facility] CPT-4: 11269 11/26/2011 Plan of Care Planned Activity Notes Codes Status Date Patient Education: Patient Medication Summary Completed 12/30/2016 [...] pain. 12/18/2015 Appointment: [facility] [phone] [id number] (30 min) [facility] 12/18/2015 Patient Education: Patient Medication Summary [...] pain. 12/04/2015 Appointment: [facility]udd [phone] [facility] [id number] (10 min) Simple 12/04/2015 Patient Education: Patient [...] risk and to maintain independece in the home.Today we discussed the need for the patient to create paperwork for Advanced directives as well as for the patient to provide this office with a copy of her DOPA paperwork for health care surrogate. 10/11/2015 Appointment: [facility] - Annual Wellness Visit 10/11/2015 Patient [...] - the pt's anaframil, clonazepam, cogentin, rispherdone, stelazine.Depression - uncontrolled - recommended increase of Wellbutrin to 100mg at bedtime and 200mg in the morning. Leg pain - need to check labs. 01/16/2015 Appointment: Loren Vit[facility]el[id number] (15 min) Moderate 01/16/2015 Patient Education: Patient Medication Summary Completed 01/16/2015 Appointment: Injection 01/02/2015 Patient Education: Patient Medication Summary Completed 01/02/2015 Patient Education: Patient Medication Summary Completed 11/28/2014 Patient Education: Patient Medication Summary Completed 10/31/2014 Patient Education: Patient Medication Summary Completed 10/03/2014 Patient Education: Patient Medication Summary Completed 08/30/2014 Visit Plan: [id number] cream to affected area twice daily as directed- call if rash does not completely resolve B12 deficiency-B12 injection today in the office 08/02/2014 Appointment: [phone] [facility] [place] S[place] 08/02/2014 Patient Education: Patient Medication Summary Completed 08/02/2014 Patient Education: Patient Medication Summary Completed 07/04/2014 Patient Education: Patient Medication Summary Completed 05/30/2014 [facility]ment: [facility] [place] [facility] 05/02/2014 Patient Education: Patient Medication Summary Completed 05/02/2014 Patient Education: Patient Medication Summary Completed 04/05/2014 Appointment: [facility] [phone] [facility] [place] Injection 03/07/2014 Patient Education: Patient Medication Summary Completed 03/07/2014 [facility]ment: [phone] [facility] [place] [facility] 02/01/2014 Patient Education: Patient Medication Summary Completed 02/01/2014 [facility]ment: [phone] [facility] [place] [facility] 12/30/2013 Patient Education: Patient Medication Summary Completed 12/30/2013 [facility]ment: [phone] [facility] [place] [facility] 11/30/2013 Patient Education: Patient Medication Summary Completed 11/30/2013 Appointment: [facility] Dev[facility] [phone] [facility] [place] In[place] 11/02/2013 Patient Education: Patient Medication Summary Completed 11/02/2013 [facility]ment: [facility] [facility] [place] [facility] 09/28/2013 [facility]ment: [facility] [facility] [place] [facility] 08/31/2013 Patient Education: Patient Medication Summary Completed 08/31/2013 Patient Education: Patient Medication Summary Completed 08/04/2013 [facility]ment: [phone] [facility] [place] [facility] 08/03/2013 Appointment: [phone] [place] [facility] 07/06/2013 Patient Education: Patient Medication Summary Completed 07/06/2013 Appointment: [facility] [phone] [facility] [place] In[place] 05/31/2013 Patient Education: Patient Medication Summary Completed 05/31/2013 Appointment: [facility] [phone] [facility] [place] 05/04/2013 Patient Education: Patient Medication Summary Completed 05/04/2013 Visit Plan: Discussed with Rubén that Juan does indeed need a new psychiatrist. From the list that Rubén has reviewed, he has requested that Dr. Randell Pedraza be contacted to see if there is room in Dr. Pedraza's practice for a new patient.Since Juan is extremely stable on his medications and is quite high functioning for a schizophrenic patient, I am hopeful that finding a new physician for Juan will not be a difficult task. We will call Rubén or his sister when Juan's appointment has been made with his new psychiatrist. 05/03/2013 Appointment: [phone] [facility] [place] Other 05/03/2013 Patient Education: Patient Medication Summary Completed 05/03/2013 Appointment: [facility] [phone] [facility] [place] Injection 03/30/2013 Patient Education: Patient Medication Summary Completed 03/30/2013 Visit Plan: Vascular Dementia - Pt with slowly progressive pattern. I have discussed with pt and family the prognosis of this disease state and the need for the family to anticipate further decline with behavior changes. Continue with current plan of treatment.Schizophrenia - pt to continue with his current medications. He is to see Dr. Treviño at [facility].B 12 deficiency and folate deficiency - pt is to continue with IM injections for b12 deficiency. 03/02/2013 Appointment: [phone] [facility] [place] Follow up 03/02/2013 Patient Education: Patient Medication Summary Completed 03/02/2013 App[facility]ment: [phone] [facility] [place] [facility] 02/02/2013 Patient Education: Patient Medication Summary Completed 02/02/2013 Patient Education: Patient Medication Summary Completed 12/29/2012 Appointment: [facility] Dev[facility]el[facility] [phone] [facility] [place] In[place] 12/01/2012 Patient Education: Patient Medication Summary Completed 12/01/2012 Appointment: [phone] [facility] [place] [facility] 11/03/2012 Patient Education: Patient Medication Summary Completed 11/03/2012 Visit Plan: Rash-discussed natural and expected course of this diagnosis and to alert me if symptoms do not follow expected course, or if any worse. RX sent to patient's pharmacy and instructed on use. B12 def-injection today in the office 09/30/2012 Appointment: [phone] [facility] [place] Other 09/30/2012 Patient Education: Patient Medication Summary Completed 09/30/2012 Patient Education: Patient Medication Summary Completed 09/08/2012 Appointment: Cam[facility] Devi [facility]el[facility] [phone] [facility] [place] Injection 08/25/2012 Patient Education: Patient Medication Summary Completed 08/25/2012 Appointment: [facility] [address] [facility] [place] [facility] 08/11/2012 Patient Education: Patient Medication Summary Completed 08/11/2012 Appointment: [facility] [phone] [facility] [place] [facility] 07/21/2012 Patient Education: Patient Medication Summary Completed 07/21/2012 Visit Plan: Vascular Dementia - Pt with slowly progressive pattern. I have discussed with pt and family the prognosis of this disease state and the need for the family to anticipate further decline with behavior changes. Continue with current plan of treatment.Schizophrenia - pt to continue with his current medications. He is to see Dr. Treviño at [facility].B 12 deficiency and folate deficiency - pt is to continue with IM injections for b12 deficiency. 07/07/2012 Appointment: [phone] [facility] [place] [facility] 07/07/2012 Patient Education: Patient Medication Summary Completed 07/07/2012 Patient Education: Patient Medication Summary Completed 06/25/2012 Patient Education: Patient Medication Summary Completed 06/09/2012 Patient Education: Patient Medication Summary Completed 05/25/2012 Appointment: Loren Vitale WPtel: [address] [place], [place] [address] [place] Injection 05/12/2012 Patient Education: Patient Medication Summary Completed 05/12/2012 Patient Education: Patient Medication Summary Completed 04/20/2012 Appointment: Camille Devi WPtel: [facility] [place] Injection 04/07/2012 Patient Education: Patient Medication Summary Completed 04/07/2012 Appointment: Camille Devi [facility]Ptel: [phone] [facility] [place] In[place] 03/24/2012 Appointment: Camille Devi WPtel: [facility] [place] Injection 03/10/2012 Patient Education: Patient Medication Summary Completed 03/10/2012 Appointment: Loren Vitale WPtel: [address] [place] [address] [place]jection 02/18/2012 Patient Education: Patient Medication Summary Completed 02/18/2012 Appointment: [facility] [facility] [place] [facility] 02/04/2012 Patient Education: Patient Medication Summary Completed 02/04/2012 Appointment: Loren Vitale WPtel: [address] [facility] [place] Injection 01/21/2012 Patient Education: Patient Medication Summary Completed 01/21/2012 Visit Plan: Vascular Dementia - Pt with slowly progressive pattern. I have discussed with pt and family the prognosis of this disease state and the need for the family to anticipate further decline with behavior changes. Continue with current plan of treatment.Schisophrenia - pt to continue with his current medications. He is need of a new psychiatrist, his brother has been given information about different options in this region.B 12 deficiency and folate deficiency - pt is to continue with IM injections for another 2 months while taking oral supplementation, then will see if only oral supplementation will be enough for Juan, or if he will need the IM injections to keep his B12 levels at normal. 01/07/2012 Appointment: IamVeronicay [facility]el[facility] [facility] [place] Other 01/07/2012 Patient Education: Patient [...] to take the largest dose in the evening.Vitamin B deficiency with peripheral neuropathy symptoms - I have recommended pt to start on oral b12, but to also start on b12 shots twice monthly.Memory loss - mri of the brain to be scheduled.I will attempt to get ahold of Juan's psychiatrist who is in [place], but he is apparently on vacation to the [facility] and may not respond until he gets back in December. I think that Juan's medications need adjusted and that is the largest part of his new symptoms. 12/17/2011 Appointment: Loren Vitale WPtel[facility] [facility] 12/17/2011 Patient Education: Patient Medication Summary [...] assistance. 12/10/2011 Appointment: Camille Devi [facility]Ptel[facility] [address] [facility] [place]-in 12/10/2011 Patient Education: Patient Medication Summary Completed 12/10/2011 Visit Plan: Dementia with Behaviors - I have discussed this patient's case with the pt and available family. The patient is on medication which appears to be controlling the worst of the symptoms. I have not recommended a change to the regimen at this time, but will continue to closely monitor the medications for effecitveness.Pt has Schixophrenia - he is on several medications for treatment of his problems. I have run an interaction tracker and NAMENDA does NOT interact with any of his psychiatric medications. I would therefore recommend starting on the namenda, with the understanding that this medication may initially cause some nightmares, but the current medications he is taking should hopefully prevent the nightmares.However, I would [facility] namenda.His UA was negative. Time based documentation -I spent over 60 minutes with the patient in discussion of the disease process, expected course, and overall prognosis for the patient's disease state. The patient/family expressed understanding. 11/26/2011 Appointment: Loren Vit[facility] [facility] [place] [facility] 11/26/2011 Patient Education: Patient [...] He is to see Dr. Treviño at [facility]. B 12 deficiency and folate deficiency - [...] ahold of Juan's psychiatrist who is in [place], but he is apparently on vacation to the [facility] and may not respond until he gets back in December. I think that Juan's medications need adjusted and that is the largest part of his new symptoms. . Rnur-heqolidk-pseqhlfrqotoc cream to affected area twice daily as [...] keep his B12 levels at normal. . Hypotension-discussed natural and expected course of [...] He is to see Dr. Treviño at [facility]. B 12 deficiency and folate deficiency - [...]
--- OUTSIDE RECORDS SUMMARY | 2018-12-22 15:44 | XMS REPORT | CCD ---
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 Name Role Phone PP Unavailable CCM Unavailable Summary Purpose Interface Exchange Insurance Providers Payer name Policy type / Coverage type Covered libertarian ID Effective Begin Date Effective End Date WPS Medicare Part B Medicare Part B [id number] 2013 Unknown [place] [employer] Medicare Part B [id number] Unknown Family history Sister Diagnosis Age At Onset No Family Disease Entered N/A First cousin Diagnosis Age At Onset No Family Disease Entered N/A Mother Diagnosis Age At Onset Dementia Unknown Social History Social History Element Codes Description Effective Dates Marital status Unknown Single 11/26/[address]: 56524739 Current every day smoker 2 packs daily 11/26/[address]: 277581925 Never drinks alcohol 11/26/2011 Has the patient [...] (vit B-12) 1,000 mcg/mL injection solution RxNorm: 107514 1 Milliliter(s) Inj 12/30/2016 12/30/2016 Inactive cyanocobalamin (vit B-12) 1,000 mcg/mL injection solution RxNorm: 598880 1 Milliliter(s) Inj 12/02/2016 12/02/2016 Inactive Wellbutrin SR 100 mg tablet,sustained-release RxNorm: 866753 TAKE ONE TABLET BY MOUTH EVERY NIGHT AT BEDTIME 10/30/2016 04/27/2017 Active cyanocobalamin (vit B-12) 1,000 mcg/mL injection solution RxNorm: 712015 Milliliter(s) Inj 10/29/2016 10/29/2016 Inactive cyanocobalamin (vit B-12) 1,000 mcg/mL injection solution RxNorm: 786109 1 Milliliter(s) Inj 10/01/2016 10/01/2016 Inactive cyanocobalamin (vit B-12) 1,000 mcg/mL injection solution RxNorm: 789543 Milliliter(s) Inj 09/02/2016 09/02/2016 Inactive cyanocobalamin (vit B-12) 1,000 mcg/mL injection solution RxNorm: 279744 Milliliter(s) Inj 08/05/2016 08/05/2016 Inactive cyanocobalamin (vit B-12) 1,000 mcg/mL injection solution RxNorm: 713746 1 Milliliter(s) Inj 07/02/2016 07/02/2016 Inactive cyanocobalamin (vit B-12) 1,000 mcg/mL injection solution RxNorm: 233842 Milliliter(s) Inj 06/03/2016 06/03/2016 Inactive cyanocobalamin (vit B-12) 1,000 mcg/mL injection solution RxNorm: 610744 Milliliter(s) Inj 2016 2016 Inactive Wellbutrin SR 100 mg tablet,sustained-release RxNorm: 502718 1 Tablet(s) PO QHS 04/01/2016 10/27/2016 Inactive cyanocobalamin (vit B-12) 1,000 mcg/mL injection solution RxNorm: 919904 Milliliter(s) Inj 04/01/2016 04/01/2016 Inactive cyanocobalamin (vit B-12) 1,000 mcg/mL injection solution RxNorm: 000439 1 Milliliter(s) Inj 03/05/2016 03/05/2016 Inactive cyanocobalamin (vit B-12) 1,000 mcg/mL injection solution RxNorm: 171370 Milliliter(s) Inj 01/29/2016 01/29/2016 Inactive cyanocobalamin (vit B-12) 1,000 mcg/mL injection solution RxNorm: 907262 Milliliter(s) Inj 01/02/2016 01/02/2016 Inactive mupirocin 2 % topical ointment RxNorm: 670360 1 Application TOP BID 12/04/2015 No Stop Date Active doxycycline hyclate 100 mg capsule RxNorm: 5370498 1 Capsule(s) PO BID 12/04/2015 12/13/2015 Inactive cyanocobalamin (vit B-12) 1,000 mcg/mL injection solution RxNorm: 431990 Milliliter(s) Inj 10/30/2015 10/30/2015 Inactive cyanocobalamin (B12)-cobamamide 5,000 mcg-100 mcg sublingual tablet RxNorm: 713134 Tablet(s) SL 10/02/2015 10/02/2015 Inactive Wellbutrin SR 100 mg tablet,sustained-release RxNorm: 093931 1 Tablet(s) PO QHS 09/08/2015 03/31/2016 Inactive cyanocobalamin (vit B-12) 1,000 mcg/mL injection solution RxNorm: 579390 Milliliter(s) Inj 08/29/2015 08/29/2015 Inactive cyanocobalamin (vit B-12) 1,000 mcg/mL injection solution RxNorm: 879108 Milliliter(s) Inj 07/31/2015 07/31/2015 Inactive cyanocobalamin (vit B-12) 1,000 mcg/mL injection solution RxNorm: 611980 Milliliter(s) Inj 06/05/2015 06/05/2015 Inactive cyanocobalamin (vit B-12) 1,000 mcg/mL injection solution RxNorm: 871490 Milliliter(s) Inj 05/01/2015 05/01/2015 Inactive cyanocobalamin (vit B-12) 1,000 mcg/mL injection solution RxNorm: 741236 Milliliter(s) Inj 04/03/2015 04/03/2015 Inactive cyanocobalamin (vit B-12) 1,000 mcg/mL injection solution RxNorm: 052292 Milliliter(s) Inj 02/28/2015 02/28/2015 Inactive cyanocobalamin (vit B-12) 1,000 mcg/mL injection solution RxNorm: 366506 Milliliter(s) Inj 01/30/2015 01/30/2015 Inactive Wellbutrin SR 100 mg tablet,sustained-release RxNorm: 927225 1 Tablet(s) PO QHS 01/16/2015 08/13/2015 Inactive cyanocobalamin (vit B-12) 1,000 mcg/mL injection solution RxNorm: 482460 1 Milliliter(s) Inj 01/02/2015 01/02/2015 Inactive cyanocobalamin (vit B-12) 1,000 mcg/mL injection solution RxNorm: 684829 1 Milliliter(s) Inj 11/28/2014 11/28/2014 Inactive cyanocobalamin (vit B-12) 1,000 mcg/mL injection solution RxNorm: 865690 Milliliter(s) Inj 10/31/2014 10/31/2014 Inactive [SAVINGS FOR NON-COVERED DRUGS -- BIN:[id number], PCN: ASPROD1, Group: XXXXX, ID# [id number], Questions: . THIS IS NOT INSURANCE.] cyanocobalamin (vit B-12) 1,000 mcg/mL injection solution RxNorm: 381887 1 Milliliter(s) Inj daily 10/03/2014 10/03/2014 Inactive [SAVINGS FOR NON-COVERED DRUGS -- BIN:[id number], PCN: ASPROD1, Group: XXXXX, ID# [id number], Questions: . THIS IS NOT INSURANCE.] cyanocobalamin (vit B-12) 1,000 mcg/mL injection solution RxNorm: 611663 Milliliter(s) Inj 08/30/2014 08/30/2014 Inactive [SAVINGS FOR NON-COVERED DRUGS -- BIN:453641, PCN: ASPROD1, Group: XXXXX, ID# [id number], Questions: . THIS IS NOT INSURANCE.] nystatin-triamcinolone 100,000 unit/g-0.1 % topical cream RxNorm: 5141399 1 Application TOP BID 08/02/2014 08/08/2014 Inactive [SAVINGS FOR UNINSURED PATIENTS -- BIN:008799, PCN: ASPROD1, Group: [id number], ID# [id number], Process claim through [employer], for questions: . THIS IS NOT INSURANCE.] cyanocobalamin (vit B-12) 1,000 mcg/mL injection solution RxNorm: 306029 Milliliter(s) Inj 08/02/2014 08/02/2014 Inactive [SAVINGS FOR UNINSURED PATIENTS -- BIN:258936, PCN: ASPROD1, Group: [id number], ID# [id number], Process claim through [employer], for questions: . THIS IS NOT INSURANCE.] cyanocobalamin (vit B-12) 1,000 mcg/mL injection kit RxNorm: 748104 Milliliter(s) Inj 07/04/2014 07/04/2014 Inactive [SAVINGS FOR UNINSURED PATIENTS -- BIN:541785, PCN: ASPROD1, Group: [id number], ID# [id number], Process claim through [employer], for questions: . THIS IS NOT INSURANCE.] cyanocobalamin (vit B-12) 1,000 mcg/mL injection solution RxNorm: 264717 Milliliter(s) Inj 05/30/2014 05/30/2014 Inactive cyanocobalamin (vit B-12) 1,000 mcg/mL injection solution RxNorm: 284629 Milliliter(s) Inj 05/02/2014 05/02/2014 Inactive cyanocobalamin (vit B-12) 1,000 mcg/mL injection solution RxNorm: 770097 Milliliter(s) Inj 04/05/2014 04/05/2014 Inactive cyanocobalamin (vit B-12) 1,000 mcg/mL injection solution RxNorm: 094823 Milliliter(s) Inj 03/07/2014 03/07/2014 Inactive cyanocobalamin (vit B-12) 1,000 mcg/mL injection solution RxNorm: 991219 1 Milliliter(s) Inj 02/01/2014 02/01/2014 Inactive cyanocobalamin (vit B-12) 1,000 mcg/mL injection solution RxNorm: 378280 1 Milliliter(s) Inj 12/30/2013 12/30/2013 Inactive [SAVINGS FOR UNINSURED PATIENTS -- BIN:985017, PCN: ASPROD1, Group: [id number], ID# [id number], Process claim through [employer], for questions: . THIS IS NOT INSURANCE.] cyanocobalamin (vit B-12) 1,000 mcg/mL injection solution RxNorm: 858545 Milliliter(s) Inj 11/30/2013 11/30/2013 Inactive cyanocobalamin (vit B-12) 1,000 mcg/mL injection solution RxNorm: 066574 1 Milliliter(s) Inj 11/02/2013 11/02/2013 Inactive Vitamin B-12 1,000 mcg/mL injection solution RxNorm: 993031 Milliliter(s) Inj 08/31/2013 08/31/2013 Inactive Vitamin B-12 1,000 mcg/mL injection solution RxNorm: 861741 1 Milliliter(s) Inj 08/04/2013 08/04/2013 Inactive Vitamin B-12 1,000 mcg/mL injection solution RxNorm: 071757 Milliliter(s) Inj 07/06/2013 07/06/2013 Inactive cyanocobalamin (vit B-12) 1,000 mcg/mL injection solution RxNorm: 137204 Milliliter(s) Inj 05/31/2013 05/31/2013 Inactive cyanocobalamin (vit B-12) 1,000 mcg/mL injection kit RxNorm: 049693 Milliliter(s) Inj 05/04/2013 05/04/2013 Inactive cyanocobalamin (vitamin B-12) 1,000 mcg/mL Injection RxNorm: 597838 Milliliter(s) Inj 03/30/2013 03/30/2013 Inactive cyanocobalamin (vitamin B-12) 1,000 mcg/mL Injection RxNorm: 595037 Milliliter(s) Inj 02/02/2013 02/02/2013 Inactive cyanocobalamin (vitamin B-12) 1,000 mcg/mL Injection RxNorm: 590484 Milliliter(s) Inj 12/29/2012 12/29/2012 Inactive cyanocobalamin (vitamin B-12) 1,000 mcg/mL Injection RxNorm: 555216 Milliliter(s) Inj 12/01/2012 12/01/2012 Inactive Vitamin B-12 1,000 mcg tablet RxNorm: 800702 Tablet(s) PO 11/03/2012 11/03/2012 Inactive Vitamin B-12 1,000 mcg/mL Injection RxNorm: 442965 1 Milliliter(s) Inj 09/30/2012 09/30/2012 Inactive triamcinolone acetonide 0.1 % Topical Cream RxNorm: 3996881 1 Application TOP BID 09/30/2012 10/13/2012 Inactive Vitamin B-12 1,000 mcg/mL Injection RxNorm: 524187 1 Milliliter(s) Inj 09/08/2012 09/08/2012 Inactive cyanocobalamin (vitamin B-12) 1,000 mcg/mL Injection RxNorm: 006322 1 Milliliter(s) Inj 08/25/2012 08/25/2012 Inactive cyanocobalamin (vitamin B-12) 1,000 mcg/mL Injection RxNorm: 713460 1 Milliliter(s) Inj 08/11/2012 08/11/2012 Inactive cyanocobalamin (vitamin B-12) 1,000 mcg/mL Injection RxNorm: 957954 1 Milliliter(s) Inj 07/21/2012 07/21/2012 Inactive Vitamin B-12 1,000 mcg/mL Injection RxNorm: 728651 Milliliter(s) Inj 07/07/2012 07/07/2012 Inactive cyanocobalamin (vitamin B-12) 1,000 mcg/mL Injection RxNorm: 372751 1 Milliliter(s) Inj 06/25/2012 06/25/2012 Inactive Vitamin B-12 1,000 mcg/mL Injection RxNorm: 419338 1 Milliliter(s) Inj 06/09/2012 06/09/2012 Inactive Vitamin B-12 1,000 mcg/mL Injection RxNorm: 454516 Milliliter(s) Inj 05/25/2012 05/25/2012 Inactive Vitamin B-12 1,000 mcg/mL Injection RxNorm: 710926 Milliliter(s) Inj 05/12/2012 05/12/2012 Inactive Vitamin B-12 1,000 mcg/mL Injection RxNorm: 050853 Milliliter(s) Inj 04/20/2012 04/20/2012 Inactive Vitamin B-12 1,000 mcg/mL Injection RxNorm: 137563 Milliliter(s) Inj 04/07/2012 04/07/2012 Inactive Vitamin B-12 1,000 mcg/mL Injection RxNorm: 011948 Milliliter(s) Inj 03/10/2012 03/10/2012 Inactive Vitamin B-12 1,000 mcg/mL Injection RxNorm: 994282 Milliliter(s) Inj 02/18/2012 02/18/2012 Inactive Vitamin B-12 1,000 mcg/mL Injection RxNorm: 614085 Milliliter(s) Inj 02/04/2012 02/04/2012 Inactive Vitamin B-12 1,000 mcg/mL Injection RxNorm: 688465 Milliliter(s) Inj 01/21/2012 01/21/2012 Inactive Vitamin B-12 1,000 mcg/mL Injection RxNorm: 783709 Milliliter(s) Inj 01/07/2012 01/07/2012 Inactive Vitamin B-12 1,000 mcg/mL Injection RxNorm: 855304 Milliliter(s) Inj 12/17/2011 12/17/2011 Inactive KCL 10 meq RxNorm: 1 PO daily 12/12/2011 12/16/2011 Inactive Vitamin B-12 1,000 mcg/mL Injection RxNorm: 215244 1 Milliliter(s) Inj monthly No Start Date Active Wellbutrin SR 200 mg Tab RxNorm: 451344 1 Tablet(s) PO daily No Start Date Active Anafranil 25 mg Cap RxNorm: 517275 1 Capsule(s) PO daily No Start Date Active Stelazine 5 mg Tab RxNorm: 994090 1 Tablet(s) PO BID No Start Date Active clonazepam 1 mg Tab RxNorm: 506963 1 Tablet(s) PO BID No Start Date Active risperidone 3 mg Tab RxNorm: 140806 Tablet(s) PO No Start Date Active 2 on even days 3 on odd days Cogentin 1 mg Tab RxNorm: 989275 1 Tablet(s) PO TID No Start Date Active Medication Administered Medication Codes Instructions Start Date Status cyanocobalamin (vit B-12) 1,000 mcg/mL injection solution RxNorm: 592330 1Milliliter 12/30/2016 Active cyanocobalamin (vit B-12) 1,000 mcg/mL injection solution RxNorm: 732156 1Milliliter 12/02/2016 No longer Active cyanocobalamin (vit B-12) 1,000 mcg/mL injection solution RxNorm: 068827 Milliliter 10/29/2016 No longer Active cyanocobalamin (vit B-12) 1,000 mcg/mL injection solution RxNorm: 365402 1Milliliter 10/01/2016 No longer Active cyanocobalamin (vit B-12) 1,000 mcg/mL injection solution RxNorm: 248647 Milliliter 09/02/2016 No longer Active cyanocobalamin (vit B-12) 1,000 mcg/mL injection solution RxNorm: 746954 Milliliter 08/05/2016 No longer Active cyanocobalamin (vit B-12) 1,000 mcg/mL injection solution RxNorm: 084133 1Milliliter 07/02/2016 No longer Active cyanocobalamin (vit B-12) 1,000 mcg/mL injection solution RxNorm: 519180 Milliliter 06/03/2016 No longer Active cyanocobalamin (vit B-12) 1,000 mcg/mL injection solution RxNorm: 271457 Milliliter 2016 No longer Active cyanocobalamin (vit B-12) 1,000 mcg/mL injection solution RxNorm: 769176 Milliliter 04/01/2016 No longer Active cyanocobalamin (vit B-12) 1,000 mcg/mL injection solution RxNorm: 644119 1Milliliter 03/05/2016 No longer Active cyanocobalamin (vit B-12) 1,000 mcg/mL injection solution RxNorm: 230863 Milliliter 01/29/2016 No longer Active cyanocobalamin (vit B-12) 1,000 mcg/mL injection solution RxNorm: 385904 Milliliter 01/02/2016 No longer Active cyanocobalamin (vit B-12) 1,000 mcg/mL injection solution RxNorm: 172250 Milliliter 10/30/2015 No longer Active cyanocobalamin (B12)-cobamamide 5,000 mcg-100 mcg sublingual tablet RxNorm: 699912 Tablet 10/02/2015 No longer Active cyanocobalamin (vit B-12) 1,000 mcg/mL injection solution RxNorm: 491838 Milliliter 08/29/2015 No longer Active cyanocobalamin (vit B-12) 1,000 mcg/mL injection solution RxNorm: 929795 Milliliter 07/31/2015 No longer Active cyanocobalamin (vit B-12) 1,000 mcg/mL injection solution RxNorm: 386130 Milliliter 06/05/2015 No longer Active cyanocobalamin (vit B-12) 1,000 mcg/mL injection solution RxNorm: 443693 Milliliter 05/01/2015 No longer Active cyanocobalamin (vit B-12) 1,000 mcg/mL injection solution RxNorm: 831936 Milliliter 04/03/2015 No longer Active cyanocobalamin (vit B-12) 1,000 mcg/mL injection solution RxNorm: 843587 Milliliter 02/28/2015 No longer Active cyanocobalamin (vit B-12) 1,000 mcg/mL injection solution RxNorm: 598064 Milliliter 01/30/2015 No longer Active cyanocobalamin (vit B-12) 1,000 mcg/mL injection solution RxNorm: 283847 1Milliliter 01/02/2015 No longer Active cyanocobalamin (vit B-12) 1,000 mcg/mL injection solution RxNorm: 556326 1Milliliter 11/28/2014 No longer Active cyanocobalamin (vit B-12) 1,000 mcg/mL injection solution RxNorm: 499367 Milliliter 10/31/2014 No longer Active cyanocobalamin (vit B-12) 1,000 mcg/mL injection solution RxNorm: 114483 1Milliliterdaily 10/03/2014 No longer Active cyanocobalamin (vit B-12) 1,000 mcg/mL injection solution RxNorm: 534321 Milliliter 08/30/2014 No longer Active cyanocobalamin (vit B-12) 1,000 mcg/mL injection solution RxNorm: 756636 Milliliter 08/02/2014 No longer Active cyanocobalamin (vit B-12) 1,000 mcg/mL injection kit RxNorm: 870221 Milliliter 07/04/2014 No longer Active cyanocobalamin (vit B-12) 1,000 mcg/mL injection solution RxNorm: 443298 Milliliter 05/30/2014 No longer Active cyanocobalamin (vit B-12) 1,000 mcg/mL injection solution RxNorm: 888016 Milliliter 05/02/2014 No longer Active cyanocobalamin (vit B-12) 1,000 mcg/mL injection solution RxNorm: 605695 Milliliter 04/05/2014 No longer Active cyanocobalamin (vit B-12) 1,000 mcg/mL injection solution RxNorm: 536268 Milliliter 03/07/2014 No longer Active cyanocobalamin (vit B-12) 1,000 mcg/mL injection solution RxNorm: 009292 1Milliliter 02/01/2014 No longer Active cyanocobalamin (vit B-12) 1,000 mcg/mL injection solution RxNorm: 743843 1Milliliter 12/30/2013 No longer Active cyanocobalamin (vit B-12) 1,000 mcg/mL injection solution RxNorm: 822642 Milliliter 11/30/2013 No longer Active cyanocobalamin (vit B-12) 1,000 mcg/mL injection solution RxNorm: 602874 1Milliliter 11/02/2013 No longer Active Vitamin B-12 1,000 mcg/mL injection solution RxNorm: 784626 Milliliter 08/31/2013 No longer Active Vitamin B-12 1,000 mcg/mL injection solution RxNorm: 932218 1Milliliter 08/04/2013 No longer Active Vitamin B-12 1,000 mcg/mL injection solution RxNorm: 954264 Milliliter 07/06/2013 No longer Active cyanocobalamin (vit B-12) 1,000 mcg/mL injection solution RxNorm: 587429 Milliliter 05/31/2013 No longer Active cyanocobalamin (vit B-12) 1,000 mcg/mL injection kit RxNorm: 689401 Milliliter 05/04/2013 No longer Active cyanocobalamin (vitamin B-12) 1,000 mcg/mL Injection RxNorm: 905805 Milliliter 03/30/2013 No longer Active cyanocobalamin (vitamin B-12) 1,000 mcg/mL Injection RxNorm: 708750 Milliliter 02/02/2013 No longer Active cyanocobalamin (vitamin B-12) 1,000 mcg/mL Injection RxNorm: 926154 Milliliter 12/29/2012 No longer Active cyanocobalamin (vitamin B-12) 1,000 mcg/mL Injection RxNorm: 058335 Milliliter 12/01/2012 No longer Active Vitamin B-12 1,000 mcg tablet RxNorm: 869502 Tablet 11/03/2012 No longer Active Vitamin B-12 1,000 mcg/mL Injection RxNorm: 688094 1Milliliter 09/30/2012 No longer Active Vitamin B-12 1,000 mcg/mL Injection RxNorm: 826187 1Milliliter 09/08/2012 No longer Active cyanocobalamin (vitamin B-12) 1,000 mcg/mL Injection RxNorm: 566584 1Milliliter 08/25/2012 No longer Active cyanocobalamin (vitamin B-12) 1,000 mcg/mL Injection RxNorm: 861898 1Milliliter 08/11/2012 No longer Active cyanocobalamin (vitamin B-12) 1,000 mcg/mL Injection RxNorm: 927066 1Milliliter 07/21/2012 No longer Active Vitamin B-12 1,000 mcg/mL Injection RxNorm: 968095 Milliliter 07/07/2012 No longer Active cyanocobalamin (vitamin B-12) 1,000 mcg/mL Injection RxNorm: 596869 1Milliliter 06/25/2012 No longer Active Vitamin B-12 1,000 mcg/mL Injection RxNorm: 956612 1Milliliter 06/09/2012 No longer Active Vitamin B-12 1,000 mcg/mL Injection RxNorm: 516435 Milliliter 05/25/2012 No longer Active Vitamin B-12 1,000 mcg/mL Injection RxNorm: 937566 Milliliter 05/12/2012 No longer Active Vitamin B-12 1,000 mcg/mL Injection RxNorm: 390943 Milliliter 04/20/2012 No longer Active Vitamin B-12 1,000 mcg/mL Injection RxNorm: 922125 Milliliter 04/07/2012 No longer Active Vitamin B-12 1,000 mcg/mL Injection RxNorm: 644486 Milliliter 03/10/2012 No longer Active Vitamin B-12 1,000 mcg/mL Injection RxNorm: 610475 Milliliter 02/18/2012 No longer Active Vitamin B-12 1,000 mcg/mL Injection RxNorm: 869480 Milliliter 02/04/2012 No longer Active Vitamin B-12 1,000 mcg/mL Injection RxNorm: 300901 Milliliter 01/21/2012 No longer Active Vitamin B-12 1,000 mcg/mL Injection RxNorm: 795242 Milliliter 01/07/2012 No longer Active Vitamin B-12 1,000 mcg/mL Injection RxNorm: 126409 Milliliter 12/17/2011 No longer Active Immunizations Vaccine [...] Code Item Item Code Result Date B12 [id number] B12 637.00 pg/ml 07/31/2015 FOLIC ACID 6217196 FOLIC ACID >24.0 NG/ML 08/25/2012 VIT B 12 3385780 VIT B 12 1591 PG/ML 08/25/2012 HOMOCYS 2685857 HOMOCYS 6.8 UMOL/L 08/25/2012 TSH 5098276 TSH 1.386 uIU/ML 07/07/2012 CBC 5529664 WBC 6.4 10e9/L 07/07/2012 CBC 8021419 RBC 4.92 10e12/L 07/07/2012 CBC 7667483 HGB 15.0 g/dL 07/07/2012 CBC 4281674 HCT DET 43.3 % 07/07/2012 CBC 9411676 MCV 88.0 fL 07/07/2012 CBC 7249255 MCH 30.5 pg 07/07/2012 CBC 1678360 MCHC 34.6 g/dL 07/07/2012 CBC 3041149 PLT 180 10e9/L 07/07/2012 CBC 6771837 MPV 10.0 fL 07/07/2012 CBC 7403006 KENRICK % 59.0 % 07/07/2012 CBC 0669253 LY % 24.1 % 07/07/2012 CBC 4763945 MON % 12.5 % 07/07/2012 CBC 4326326 EOS % 4.1 % 07/07/2012 CBC 6232575 BASO % 0.3 % 07/07/2012 CBC 9674402 RDW 13.4 % 07/07/2012 CBC 1540857 ABS KENRICK 3.78 10e9/L 07/07/2012 CBC 0677927 ABS LYMPH 1.54 10e9/L 07/07/2012 CBC 4357422 ABS MONO 0.80 10e9/L 07/07/2012 CBC 5507496 ABS EOS 0.26 10e9/L 07/07/2012 CBC 6811054 ABS BASO 0.02 10e9/L 07/07/2012 CBC 6674678 RDW-SD 42.9 fL 07/07/2012 CHEM 14 9923048 AST 29 U/L 07/07/2012 CHEM 14 6938222 ALT 29 U/L 07/07/2012 CHEM 14 6854971 BUN 9 MG/DL 07/07/2012 CHEM 14 3966843 ALBUMIN 4.1 GM/DL 07/07/2012 CHEM 14 5519582 CHLORIDE 103 MMOL/L 07/07/2012 CHEM 14 0339622 BILI TOT 0.3 MG/DL 07/07/2012 CHEM 14 2696734 ALK PHOS 88 U/L 07/07/2012 CHEM 14 5710890 SODIUM 141 MMOL/L 07/07/2012 CHEM 14 6791623 CREATININE 1.38 MG/DL 07/07/2012 CHEM 14 2807200 CALCIUM 9.3 MG/DL 07/07/2012 CHEM 14 1956216 POTASSIUM 3.7 MMOL/L 07/07/2012 CHEM 14 7928613 PROT TOT 6.4 GM/DL 07/07/2012 CHEM 14 4256653 GLUCOSE 76 MG/DL 07/07/2012 CHEM 14 4814106 BICARB 28 MMOL/L 07/07/2012 CHEM 14 3616510 ANION GAP 10 MMOL/L 07/07/2012 GFR CALC 1428769 GFR AA >60 ML/MIN 07/07/2012 GFR CALC 0563783 GFR NON-AA 52.0L ML/MIN 07/07/2012 B12 FOLAT 2879816 VIT B 12 211 PG/ML 12/10/2011 B12 FOLAT 7723852 FOLIC ACID 3.9 NG/ML 12/10/2011 GFR CALC 2583421 GFR AA >60 ML/MIN 12/10/2011 GFR CALC 1415699 GFR NON-AA >60 ML/MIN 12/10/2011 CPK 7736991 CPK 135 U/L 12/10/2011 CHEM 14 5071925 AST 62 U/L 12/10/2011 CHEM 14 8746998 ALT 114 U/L 12/10/2011 CHEM 14 1365234 BUN 10 MG/DL 12/10/2011 CHEM 14 8892879 ALBUMIN 3.7 GM/DL 12/10/2011 CHEM 14 5684883 CHLORIDE 103 MMOL/L 12/10/2011 CHEM 14 7631265 BILI TOT 0.5 MG/DL 12/10/2011 CHEM 14 3024828 ALK PHOS 129 U/L 12/10/2011 CHEM 14 5284027 SODIUM 140 MMOL/L 12/10/2011 CHEM 14 1559726 CREATININE 1.17 MG/DL 12/10/2011 CHEM 14 3909667 CALCIUM 8.8 MG/DL 12/10/2011 CHEM 14 3144201 POTASSIUM 3.4 MMOL/L 12/10/2011 CHEM 14 3504017 PROT TOT 5.8 GM/DL 12/10/2011 CHEM 14 1869605 GLUCOSE 84 MG/DL 12/10/2011 CHEM 14 0006903 BICARB 26 MMOL/L 12/10/2011 CHEM 14 8682412 ANION GAP 11 MMOL/L 12/10/2011 URINALYSIS NONAUTO W/O SCOPE 06255 Specific [place] 1.005 DateTime(Free Text in Aprima) URINALYSIS NONAUTO W/O SCOPE 82353 PH 6 DateTime(Free Text in Aprima) URINALYSIS NONAUTO W/O SCOPE 38035 GLUCOSE neg DateTime(Free Text in Aprima) URINALYSIS NONAUTO W/O SCOPE 47370 Protein neg DateTime(Free Text in Aprima) URINALYSIS NONAUTO W/O SCOPE 06239 Blood neg DateTime(Free Text in Aprima) URINALYSIS NONAUTO W/O SCOPE 33082 Bilirubin neg DateTime(Free Text in Aprima) URINALYSIS NONAUTO W/O SCOPE 23263 Ketones neg DateTime(Free Text in Aprima) URINALYSIS NONAUTO W/O SCOPE 64054 Urobilinogen neg DateTime(Free Text in Aprima) URINALYSIS NONAUTO W/O SCOPE 82997 Nitrite neg DateTime(Free Text in Aprima) URINALYSIS NONAUTO W/O SCOPE 81782 Leukocytes neg DateTime(Free Text in Aprima) URINALYSIS NONAUTO W/O SCOPE 59084 Specific [place] 1.010 DateTime(Free Text in Aprima) URINALYSIS NONAUTO W/O SCOPE 13021 PH 6.5 DateTime(Free Text in Aprima) URINALYSIS NONAUTO W/O SCOPE 04820 GLUCOSE neg DateTime(Free Text in Aprima) URINALYSIS NONAUTO W/O SCOPE 88855 Protein neg DateTime(Free Text in Aprima) URINALYSIS NONAUTO W/O SCOPE 99511 Blood neg DateTime(Free Text in Aprima) URINALYSIS NONAUTO W/O SCOPE 68943 Bilirubin neg DateTime(Free Text in Aprima) URINALYSIS NONAUTO W/O SCOPE 72228 Ketones neg DateTime(Free Text in Aprima) URINALYSIS NONAUTO W/O SCOPE 54703 Urobilinogen neg DateTime(Free Text in Aprima) URINALYSIS NONAUTO W/O SCOPE 90648 Nitrite neg DateTime(Free Text in Aprima) URINALYSIS NONAUTO W/O SCOPE 39745 Leukocytes neg DateTime(Free Text in Apr) Review [...] recall three words at five minutes 01/16/2015 [facility] exam points Full Exam - [...] recall three words at five minutes 03/02/2013 [facility] exam points Full Exam - [...] recall three words at five minutes 07/07/2012 [facility] exam points Full Exam - [...] recall three words at five minutes 01/07/2012 [facility] exam points Full Exam - [...] recall three words at five minutes 12/17/2011 [facility] Sat exam points Full Exam - General [...] recall three words at five minutes 12/10/2011 [facility] exam points Full Exam - [...] recall three words at five minutes 11/26/2011 [facility] exam points Procedures Procedure Codes Date TOBACCO-USE RN TELEHEALTH 3-[address]: [id number] CPT-4: Z8545Zfrucye 12/30/2016 THER/PROPH/DIAG INJ SC/IM CPT-4: 75458Whpfbur 12/30/2016 VITAMIN B12 INJECTION CPT-4: E8603Qvnqaht 12/30/2016 THER/PROPH/DIAG INJ SC/IM CPT-4: 66205Joeegcp 12/02/2016 VITAMIN B12 INJECTION CPT-4: T5841Cbqtbwr 12/02/2016 THER/PROPH/DIAG INJ SC/IM CPT-4: 05913Cnzcmlt 10/29/2016 VITAMIN B12 INJECTION CPT-4: T6482Asnzpbz 10/29/2016 THER/PROPH/DIAG INJ SC/IM CPT-4: 85745Ecvoojk 10/01/2016 VITAMIN B12 INJECTION CPT-4: E7908Krzuupc 10/01/2016 TOBACCO-USE RN TELEHEALTH 3-[address]: [id number] CPT-4: Y4784Mwaakzv 09/02/2016 VITAMIN B12 INJECTION CPT-4: L8342Onoptje 09/02/2016 THER/PROPH/DIAG INJ SC/IM CPT-4: 12308Rdovoqi 09/02/2016 THER/PROPH/DIAG INJ SC/IM CPT-4: 30727Fftjmat 08/05/2016 VITAMIN B12 INJECTION CPT-4: N2402Qszsmxy 08/05/2016 THER/PROPH/DIAG INJ SC/IM CPT-4: 88104Ladrtut 07/02/2016 VITAMIN B12 INJECTION CPT-4: J9571Vupebno 07/02/2016 VITAMIN B12 INJECTION CPT-4: C2252Swplbve 06/03/2016 THER/PROPH/DIAG INJ SC/IM CPT-4: 78654Vdbcbwr 06/03/2016 THER/PROPH/DIAG INJ SC/IM CPT-4: 55094Jdnakov 2016 VITAMIN B12 INJECTION CPT-4: I1837Whrnkxj 2016 THER/PROPH/DIAG INJ SC/IM CPT-4: 97154Jgcxrzn 04/01/2016 VITAMIN B12 INJECTION CPT-4: T8982Xkjfvqf 04/01/2016 VITAMIN B12 INJECTION CPT-4: Y5772Vyohmin 03/05/2016 THER/PROPH/DIAG INJ SC/IM CPT-4: 95423Hxwrljc 03/05/2016 TOBACCO-USE RN TELEHEALTH 3-[address]: 520239165 CPT-4: C2839Ixlmwhn 01/29/2016 THER/PROPH/DIAG INJ SC/IM CPT-4: 96276Yoouunh 01/29/2016 VITAMIN B12 INJECTION CPT-4: L7962Enecbua 01/29/2016 THER/PROPH/DIAG INJ SC/IM CPT-4: 13738Ndozgad 01/02/2016 VITAMIN B12 INJECTION CPT-4: Q2224Pyegxfi 01/02/2016 VITAMIN B12 INJECTION CPT-4: K0346Dxzatrv 12/04/2015 THER/PROPH/DIAG INJ SC/IM CPT-4: 06950Jmqzlzs 12/04/2015 THER/PROPH/DIAG INJ SC/IM CPT-4: 22340Zvpxanw 10/30/2015 VITAMIN B12 INJECTION CPT-4: G6268Xqfcemi 10/30/2015 PPPS, SUBSEQ VISIT CPT-4: O3036Yiiigoc 10/11/2015 TOBACCO-USE RN TELEHEALTH 3-[address]: 502620843 CPT-4: Y3119Npnomwk 10/11/2015 TOBACCO-USE RN TELEHEALTH 3-[address]: 186319916 CPT-4: P6461Pjnzccf 10/02/2015 THER/PROPH/DIAG INJ SC/IM CPT-4: 32394Icsrvro 10/02/2015 VITAMIN B12 INJECTION CPT-4: Z1295Jwrbpcm 10/02/2015 THER/PROPH/DIAG INJ SC/IM CPT-4: 20294Gxtagoo 08/29/2015 VITAMIN B12 INJECTION CPT-4: I8373Gfpklkb 08/29/2015 THER/PROPH/DIAG INJ SC/IM CPT-4: 69196Hhaccpl 07/31/2015 VITAMIN B12 INJECTION CPT-4: M1292Miqqydk 07/31/2015 THER/PROPH/DIAG INJ SC/IM CPT-4: 18526Twjabcs 07/03/2015 VITAMIN B12 INJECTION CPT-4: H9590Bmqlpgh 07/03/2015 THER/PROPH/DIAG INJ SC/IM CPT-4: 68052Hubroeo 06/05/2015 VITAMIN B12 INJECTION CPT-4: S2318Afluwqi 06/05/2015 VITAMIN B12 INJECTION CPT-4: P0831Tvyfzth 05/01/2015 THER/PROPH/DIAG INJ SC/IM CPT-4: 57405Eyletvo 05/01/2015 THER/PROPH/DIAG INJ SC/IM CPT-4: 33661Isttgvt 04/03/2015 VITAMIN B12 INJECTION CPT-4: F1466Qqqknsn 04/03/2015 THER/PROPH/DIAG INJ SC/IM CPT-4: 77775Mlfrtdt 02/28/2015 VITAMIN B12 INJECTION CPT-4: E8962Zpngzqg 02/28/2015 THER/PROPH/DIAG INJ SC/IM CPT-4: 27390Sbagcjm 01/30/2015 VITAMIN B12 INJECTION CPT-4: D0588Ooatalu 01/30/2015 VITAMIN B12 INJECTION CPT-4: J7888Tfnsmbt 01/02/2015 THER/PROPH/DIAG INJ SC/IM CPT-4: 98358Arpdvpx 01/02/2015 THER/PROPH/DIAG INJ SC/IM CPT-4: 28015Lggzitm 11/28/2014 VITAMIN B12 INJECTION CPT-4: P0615Lflqqju 11/28/2014 THER/PROPH/DIAG INJ SC/IM CPT-4: 67732Ebwbfim 10/31/2014 VITAMIN B12 INJECTION CPT-4: F9574Gwdnqfn 10/31/2014 THER/PROPH/DIAG INJ SC/IM CPT-4: 33781Whwajhq 10/03/2014 VITAMIN B12 INJECTION CPT-4: N5300Ocigpuh 10/03/2014 THER/PROPH/DIAG INJ SC/IM CPT-4: 58478Xlejkgm 08/30/2014 VITAMIN B12 INJECTION CPT-4: T9205Rtuezfx 08/30/2014 THER/PROPH/DIAG INJ SC/IM CPT-4: 66058Hkqtqtg 08/02/2014 VITAMIN B12 INJECTION CPT-4: V4085Anujkhh 08/02/2014 THER/PROPH/DIAG INJ SC/IM CPT-4: 68615Fohhuet 07/04/2014 VITAMIN B12 INJECTION CPT-4: U5338Efmktki 07/04/2014 THER/PROPH/DIAG INJ SC/IM CPT-4: 78038Jihtkgi 05/30/2014 VITAMIN B12 INJECTION CPT-4: D3106Qdiddbc 05/30/2014 THER/PROPH/DIAG INJ SC/IM CPT-4: 70992Sqlwloe 05/02/2014 VITAMIN B12 INJECTION CPT-4: L7122Qtfnmgs 05/02/2014 THER/PROPH/DIAG INJ SC/IM CPT-4: 79785Ulfoujv 04/05/2014 THER/PROPH/DIAG INJ SC/IM CPT-4: 37713Qzcegtj 03/07/2014 VITAMIN B12 INJECTION CPT-4: Z9649Pcmzogy 03/07/2014 THER/PROPH/DIAG INJ SC/IM CPT-4: 87957Rougbng 02/01/2014 VITAMIN B12 INJECTION CPT-4: W5450Lnqdnrp 02/01/2014 VITAMIN B12 INJECTION CPT-4: J5721Rrfgxlh 12/30/2013 THER/PROPH/DIAG INJ SC/IM CPT-4: 28920Wgduegt 12/30/2013 THER/PROPH/DIAG INJ SC/IM CPT-4: 19735Tzzmxsc 11/30/2013 VITAMIN B12 INJECTION CPT-4: B6531Mqdoleg 11/30/2013 THER/PROPH/DIAG INJ SC/IM CPT-4: 69496Ctwpygz 11/02/2013 VITAMIN B12 INJECTION CPT-4: S2225Vsnunwx 11/02/2013 THER/PROPH/DIAG INJ SC/IM CPT-4: 13693Tamaelz 08/31/2013 VITAMIN B12 INJECTION CPT-4: P0760Txkjtqu 08/31/2013 THER/PROPH/DIAG INJ SC/IM CPT-4: 03823Jkwrtiy 08/04/2013 VITAMIN B12 INJECTION CPT-4: P5556Cofcwka 08/04/2013 VITAMIN B12 INJECTION CPT-4: O7446Qtmzomu 07/06/2013 THER/PROPH/DIAG INJ SC/IM CPT-4: 57862Qaclnfc 07/06/2013 THER/PROPH/DIAG INJ SC/IM CPT-4: 99852Dcnhafy 05/31/2013 VITAMIN B12 INJECTION CPT-4: W7904Mejpufe 05/31/2013 ADMIN INFLUENZA VIRUS VAC CPT-4: V9061Qyvaeiu 05/04/2013 FLULAVAL VACC, 3 YRS & >, IM CPT-4: K7723Vwaptrn 05/04/2013 THER/PROPH/DIAG INJ SC/IM CPT-4: 23236Vlvwqtu 05/04/2013 VITAMIN B12 INJECTION CPT-4: I4184Dxhjgtx 05/04/2013 THER/PROPH/DIAG INJ SC/IM CPT-4: 89154Cnaazhi 03/30/2013 VITAMIN B12 INJECTION CPT-4: M5963Ufxsgmu 03/30/2013 THER/PROPH/DIAG INJ SC/IM CPT-4: 33465Rqrekng 03/02/2013 VITAMIN B12 INJECTION CPT-4: X9642Tvqeoxl 03/02/2013 [id number] EST. PATIENT, LEVEL IV CPT-4: 44070Zftjafc 03/02/2013 THER/PROPH/DIAG INJ SC/IM CPT-4: 63257Fbzfspo 02/02/2013 VITAMIN B12 INJECTION CPT-4: J2053Dzzldko 02/02/2013 THER/PROPH/DIAG INJ SC/IM CPT-4: 64381Gaahbtt 12/29/2012 VITAMIN B12 INJECTION CPT-4: S5705Zyzatoa 12/29/2012 TRIAMCINOLONE ACET INJ NOS CPT-4: B8945Dnxmbwv 12/01/2012 VITAMIN B12 INJECTION CPT-4: L8521Zgdxjxe 12/01/2012 VITAMIN B12 INJECTION CPT-4: N0601Bfvkfyk 11/03/2012 THER/PROPH/DIAG INJ SC/IM CPT-4: 58273Clpjyjq 11/03/2012 THER/PROPH/DIAG INJ SC/IM CPT-4: 88554Bohgwdw 09/30/2012 VITAMIN B12 INJECTION CPT-4: H0468Jtwhoow 09/30/2012 PRESCRIP TRANSMIT VIA ERX SY CPT-4: S7773Ghicbtf 09/30/2012 VITAMIN B12 INJECTION CPT-4: W5649Jisollt 09/08/2012 THER/PROPH/DIAG INJ SC/IM CPT-4: 57246Eonyups 09/08/2012 THER/PROPH/DIAG INJ SC/IM CPT-4: 32210Nbmkqkq 08/25/2012 ROUTINE VENIPUNCTURE CPT-4: 69221Hlwvfda 08/25/2012 VITAMIN B12 INJECTION CPT-4: X9657Xssjnmj 08/25/2012 THER/PROPH/DIAG INJ SC/IM CPT-4: 90337Cuctssj 08/11/2012 VITAMIN B12 INJECTION CPT-4: T7660Enmmich 08/11/2012 VITAMIN B12 INJECTION CPT-4: G9806Whmjpzi 07/21/2012 THER/PROPH/DIAG INJ SC/IM CPT-4: 59636Extqvep 07/21/2012 THER/PROPH/DIAG INJ SC/IM CPT-4: 59581Imwmxbc 07/07/2012 VITAMIN B12 INJECTION CPT-4: H1918Vkzwgrd 07/07/2012 ROUTINE VENIPUNCTURE CPT-4: 43837Cgnvrjp 07/07/2012 VITAMIN B12 INJECTION CPT-4: W2633Taxvafh 06/25/2012 THER/PROPH/DIAG INJ SC/IM CPT-4: 01363Tdoljmc 06/25/2012 VITAMIN B12 INJECTION CPT-4: E6156Aruttrp 06/09/2012 THER/PROPH/DIAG INJ SC/IM CPT-4: 41805Gpejldw 06/09/2012 VITAMIN B12 INJECTION CPT-4: Z0456Hesluww 05/25/2012 THER/PROPH/DIAG INJ SC/IM CPT-4: 54389Iqswxdk 05/25/2012 VITAMIN B12 INJECTION CPT-4: I0771Cxjjeer 05/12/2012 THER/PROPH/DIAG INJ SC/IM CPT-4: 19712Htrmouu 05/12/2012 VITAMIN B12 INJECTION CPT-4: A9883Mdjhlvt 04/20/2012 THER/PROPH/DIAG INJ SC/IM CPT-4: 86650Gdxnhnp 04/20/2012 THER/PROPH/DIAG INJ SC/IM CPT-4: 29068Qmonagt 04/07/2012 VITAMIN B12 INJECTION CPT-4: J6074Yklcwcb 04/07/2012 VITAMIN B12 INJECTION CPT-4: A8090Bwzoruw 03/10/2012 THER/PROPH/DIAG INJ SC/IM CPT-4: 94398Tzsfzin 03/10/2012 VITAMIN B12 INJECTION CPT-4: D0253Xgaobht 02/18/2012 THER/PROPH/DIAG INJ SC/IM CPT-4: 61237Wolgjnb 02/18/2012 THER/PROPH/DIAG INJ SC/IM CPT-4: 31496Euidyba 02/04/2012 VITAMIN B12 INJECTION CPT-4: M9872Limnmja 02/04/2012 THER/PROPH/DIAG INJ SC/IM CPT-4: 02770Aanklvf 01/21/2012 VITAMIN B12 INJECTION CPT-4: J7688Bntrson 01/21/2012 VITAMIN B12 INJECTION CPT-4: U6843Pawvove 01/07/2012 VITAMIN B12 INJECTION CPT-4: Z3257Mabjwfe 12/17/2011 URINALYSIS NONAUTO W/O SCOPE CPT-4: 19132Fkbospf 12/10/2011 ROUTINE VENIPUNCTURE CPT-4: 34201Gvybwmm 12/10/2011 URINALYSIS NONAUTO W/O SCOPE CPT-4: 16083Kjjrgsv 11/26/2011 Vital Signs Date Vital 12/18/2015 Blood Pressure 1: 140/68 Code: 8480-6 BMI: 25.7 Code: 32290-3 Heart Rate 1: 83 bpm Height: 5'7" SpO2: 95% Weight: 164 lbs 10/11/2015 Blood Pressure 1: 128/80 Code: 8480-6 BMI: 26.0 Code: 89311-9 Heart Rate 1: 80 bpm Height: 5'7" SpO2: 97% Waist Measure (cm): 89 cm Weight: 166 lbs 01/16/2015 Blood Pressure 1: 122/84 Code: 8480-6 BMI: 25.7 Code: 32792-9 Heart Rate 1: 68 bpm Height: 5'7" SpO2: 95% Weight: 164 lbs 08/02/2014 Blood Pressure 1: 140/86 Code: 8480-6 BMI: 25.1 Code: 91372-2 Heart Rate 1: 64 bpm Height: 5'7" Weight: 160 lbs 03/02/2013 Blood Pressure 1: 108/74 Code: 8480-6 BMI: 28.3 Code: 75153-3 Heart Rate 1: 80 bpm Height: 5'7" Weight: 181 lbs 09/30/2012 Blood Pressure 1: 126/74 Code: 8480-6 Heart Rate 1: 64 bpm Weight: 07/07/2012 Blood Pressure 1: 130/84 Code: 8480-6 BMI: 26.6 Code: 46604-9 Heart Rate 1: 80 bpm Height: 5'7" [...] 1: 110/68 Code: 8480-6 BMI: 25.7 Code: 21438-3 Heart Rate 1: 68 bpm Height: 5'7" [...] data Encounters Encounter Performer Location Codes Date [id number] EST. PATIENT, LEVEL III Diagnosis: Encounter for follow-up examination after completed treatment for conditions other than malignant neoplasm[ICD10: Z09] [facility] CPT-4: 31885 12/18/2015 81611 EST. PATIENT, LEVEL IV Diagnosis: Cellulitis of right lower limb[ICD10: L03.115] Diagnosis: Vitamin B12 deficiency anemia due to intrinsic factor deficiency[ICD10: D51.0] [facility] CPT-4: 17352 12/04/2015 ([id number]) Miscellaneous no charge Diagnosis: Vitamin B deficiency, unspecified[ICD10: E53.9] Loren Vitale MD, [facility] CPT-4: 70438 07/31/2015 ([id number]) 53293 EST. PATIENT, LEVEL IV Diagnosis: Schizophrenia[ICD9: 295.90] Diagnosis: DEPRESSIVE DISORDER NEC[ICD9: 311] Diagnosis: Medication dose changed[ICD9: V58.69] Diagnosis: Leg pain[ICD9: 729.5] Loren Vitale MD, [facility] CPT-4: 48215 01/16/2015 ([id number]) 19311 EST. PATIENT, LEVEL III Diagnosis: Rash[ICD9: 782.1] Camille Vitale MD, [facility] CPT-4: 33504 08/02/2014 ([id number]) Miscellaneous no charge Diagnosis: SCHIZO NOS, CHRN[ICD9: 295.92] Loren Vitale MD, [facility] CPT-4: 70433 05/03/2013 ([id number]) 84400 EST. PATIENT, LEVEL III Diagnosis: Rash[ICD9: 782.1] Diagnosis: B-COMPLEX DEFIC NEC[ICD9: 266.2] Loren Vitale MD, [facility] CPT-4: 62876 09/30/2012 ([id number]) 05174 EST. PATIENT, LEVEL IV Diagnosis: SCHIZO NOS, CHRN[ICD9: 295.92] Diagnosis: DEMEN NOS W/O BEHV DSTRB[ICD9: 294.20] Loren Vitale MD, [facility] CPT-4: 85453 07/07/2012 ([id number]) 43418 EST. PATIENT, LEVEL IV Diagnosis: DEMEN NOS W/O BEHV DSTRB[ICD9: 294.20] Diagnosis: SCHIZO NOS, CHRN[ICD9: 295.92] Diagnosis: Vitamin B 12 deficiency[ICD9: 266.2] Loren Vitale MD, [facility] CPT- 4: 85101 01/07/2012 ([id number]) 35513 EST. PATIENT, LEVEL IV Diagnosis: DEMEN NOS W/O BEHV DSTRB[ICD9: 294.20] Diagnosis: ALTERED MENTAL STATUS[ICD9: 780.97] Diagnosis: Myalgia[ICD9: 729.1] [facility] CPT-4: 02064 12/17/2011 ([id number]) 23733 EST. PATIENT, LEVEL IV Diagnosis: Orthostatic hypotension[ICD9: 458.0] Diagnosis: Hypokalemia[ICD9: 276.8] Diagnosis: DEMEN NOS W/O BEHV DSTRB[ICD9: 294.20] Diagnosis: SCHIZO NOS, CHRN[ICD9: 295.92] Diagnosis: ALTERED MENTAL STATUS[ICD9: 780.97] [facility] CPT-4: 81106 12/10/2011 OFFICE/OUTPATIENT VISIT NEW Diagnosis: Schizophrenia, chronic condition[ICD9: 295.92] Diagnosis: Encounter for long-term (current) use of other high-risk medications[ICD9: V58.69] [facility] CPT-4: 64793 11/26/2011 Plan of Care Planned Activity Notes [...] pain. 12/18/2015 [facility] [phone] [facility] ([facility] 12/18/2015 Patient Education: Patient Medication Summary Completed [...] pain. 12/04/2015 [facility]ment: [facility] [phone] [facility] ([facility] min) Simple 12/04/2015 Patient Education: Patient [...] paperwork for health care surrogate. 10/11/2015 Appointment: [facility] - Annual Wellness Visit 10/11/2015 Patient [...] check labs. 01/16/2015 Appointment: Loren Vitale W[facility]el[facility] [address] [facility] (15 min) Moderate 01/16/2015 Patient Education: Patient Medication Summary Completed 01/16/2015 Appointment: Injection 01/02/2015 Patient Education: Patient Medication Summary Completed 01/02/2015 Patient Education: Patient Medication Summary Completed 11/28/2014 Patient Education: Patient Medication Summary Completed 10/31/2014 Patient Education: Patient Medication Summary Completed 10/03/2014 Patient Education: Patient Medication Summary Completed 08/30/2014 Visit Plan: Lfty-qyyjmujk-ecsmootytxynf cream to affected area twice daily as directed- call if rash does not completely resolve B12 deficiency-B12 injection today in the office 08/02/2014 [facility]: [facility] [phone] [phone] [place] Sick 08/02/2014 Patient Education: Patient Medication Summary Completed 08/02/2014 Patient Education: Patient Medication Summary Completed 07/04/2014 Patient Education: Patient Medication Summary Completed 05/30/2014 Appointment: [facility] [phone] [facility] [place] Injection 05/02/2014 Patient Education: Patient Medication Summary Completed 05/02/2014 Patient Education: Patient Medication Summary Completed 04/05/2014 [facility] [phone] [phone] [place] Injection 03/07/2014 Patient Education: Patient Medication Summary Completed 03/07/2014 Appointment: [facility] [phone] [facility] [place] In[facility] 02/01/2014 Patient Education: Patient Medication Summary Completed 02/01/2014 Appointment: [facility]el[facility] [phone] [facility] [place] Injection 12/30/2013 Patient Education: Patient Medication Summary Completed 12/30/2013 Appointment: [facility]Ptel[facility] [phone] [facility] [place] Injection 11/30/2013 Patient Education: Patient Medication Summary Completed 11/30/2013 [facility]ment: [facility] [phone] [phone] [place] Injection 11/02/2013 Patient Education: Patient Medication Summary Completed 11/02/2013 Appointment: [facility]el[facility] [phone] [facility] [place] In[facility] 09/28/2013 Appointment: Loren [facility]Ptel[facility] [phone] [facility] [place] Injection 08/31/2013 Patient Education: Patient Medication Summary Completed 08/31/2013 Patient Education: Patient Medication Summary Completed 08/04/2013 Appointment: Loren [facility]ale [facility]Ptel[facility] [phone] [facility] [place] Injection 08/03/2013 Appointment: Loren Vitale [facility]Ptel[facility] [phone] [facility] [place] Injection 07/06/2013 Patient Education: Patient Medication Summary Completed 07/06/2013 App[facility]ment: [facility] [phone] [phone] [place] Injection 05/31/2013 Patient Education: Patient Medication Summary Completed 05/31/2013 App[facility]ment: [facility] [phone] [phone] [place] Injection 05/04/2013 Patient Education: Patient Medication [...] psychiatrist. 05/03/2013 Appointment: [facility]Ptel[facility] [phone] [facility] [place] Other 05/03/2013 Patient Education: Patient Medication Summary Completed 05/03/2013 App[facility]ment: [facility] [phone] [phone] [place] Injection 03/30/2013 Patient Education: Patient Medication [...] He is to see Dr. Treviño at [facility].B 12 deficiency and folate deficiency - pt is to continue with IM injections for b12 deficiency. 03/02/2013 Appointment: Loren [facility]Ptel[facility] [phone] [facility] [place] Follow up 03/02/2013 Patient Education: Patient Medication Summary Completed 03/02/2013 Appointment: Loren Vitale WPtel[facility] [phone] [facility] [place] Injection 02/02/2013 Patient Education: Patient Medication Summary Completed 02/02/2013 Patient Education: Patient Medication Summary Completed 12/29/2012 App[facility]ment: [facility] [phone] [phone] [place] Injection 12/01/2012 Patient Education: Patient Medication Summary Completed 12/01/2012 Appointment: [facility]Ptel[facility] [phone] [facility] [place] Injection 11/03/2012 Patient Education: Patient Medication Summary Completed 11/03/2012 Visit Plan: Rash-discussed natural and expected course of this diagnosis and to alert me if symptoms do not follow expected course, or if any worse. RX sent to patient's pharmacy and instructed on use. B12 def-injection today in the office 09/30/2012 Appointment: Loren [facility]Ptel[facility] [phone] [facility] [place] Other 09/30/2012 Patient Education: Patient Medication Summary Completed 09/30/2012 Patient Education: Patient Medication Summary Completed 09/08/2012 App[facility]ment: [facility] [phone] [phone] [place] Injection 08/25/2012 Patient Education: Patient Medication Summary Completed 08/25/2012 Appointment: [facility]Ptel[facility] [phone] [facility] [place] Injection 08/11/2012 Patient Education: Patient Medication Summary Completed 08/11/2012 Appointment: [facility]Ptel[facility] [phone] [facility] [place] Injection 07/21/2012 Patient Education: Patient Medication [...] He is to see Dr. Treviño at [facility].B 12 deficiency and folate deficiency - pt is to continue with IM injections for b12 deficiency. 07/07/2012 Appointment: Loren [facility]Ptel[facility] [phone] [facility] [place] Follow up 07/07/2012 Patient Education: Patient Medication Summary Completed 07/07/2012 Patient Education: Patient Medication Summary Completed 06/25/2012 Patient Education: Patient Medication Summary Completed 06/09/2012 Patient Education: Patient Medication Summary Completed 05/25/2012 Appointment: Loren Vitale WPtel: [address] [place], [place] [id number] [place] Injection 05/12/2012 Patient Education: Patient Medication Summary Completed 05/12/2012 Patient Education: Patient Medication Summary Completed 04/20/2012 Appointment: Camille Devi WPtel[facility] [phone] [phone] [place] Injection 04/07/2012 Patient Education: Patient Medication Summary Completed 04/07/2012 Appointment: [facility] [phone] [phone] [place] Injection 03/24/2012 Appointment: Camille Devi WPtel[facility] [phone] [phone] [place] Injection 03/10/2012 Patient Education: Patient Medication Summary Completed 03/10/2012 Appointment: Loren Vitale WPtel: [address] [place] [address] [place] Injection 02/18/2012 Patient Education: Patient Medication Summary Completed 02/18/2012 Appointment: [facility]Ptel[facility] [phone] [facility] [place] Injection 02/04/2012 Patient Education: Patient Medication Summary Completed 02/04/2012 Appointment: Loren Vitale WPtel: [phone] [facility] [place] Injection 01/21/2012 Patient Education: Patient Medication [...] at normal. 01/07/2012 Appointment: IamVeronicay WPtel[facility] [phone] [facility] [place] Other 01/07/2012 Patient Education: Patient Medication [...] he is apparently on vacation to the [facility] and may not respond until he gets back in December. I think that Juan's medications need adjusted and that is the largest part of his new symptoms. 12/17/2011 Appointment: Loren Vitale WPtel: [facility] [address] [facility] Other 12/17/2011 Patient Education: Patient Medication Summary [...] assistance. 12/10/2011 App[facility]ment: [facility] [phone] [phone] [facility]-in 12/10/2011 Patient Education: Patient Medication Summary [...] understanding. 11/26/2011 Appointment: Loren Vit[facility]Ptel[facility] [phone] [facility] New Patient 11/26/2011 Patient Education: Patient Medication [...] He is to see Dr. Treviño at [facility]. B 12 deficiency and folate deficiency - [...] he is apparently on vacation to the [facility] and may not respond until he gets back in December. I think that Juan's medications need adjusted and that is the largest part of his new symptoms. . Udcw-rfweyzaq-yogxbilytfyaf cream to affected area twice daily as [...] He is to see Dr. Treviño at [facility]. B 12 deficiency and folate deficiency - [...]
--- OUTSIDE RECORDS SUMMARY | 2018-12-22 15:47 | XMS REPORT | CCD ---
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 Name Role Phone PP Unavailable CCM Unavailable Summary Purpose Interface Exchange Insurance Providers Payer name Policy type / Coverage type Covered democrat ID Effective Begin Date Effective End Date WPS Medicare Part B Medicare Part B [id number] 2013 Unknown [place] [employer] Medicare Part B [id number] Unknown Family history Sister Diagnosis Age At Onset No Family Disease Entered N/A First cousin Diagnosis Age At Onset No Family Disease Entered N/A Mother Diagnosis Age At Onset Dementia Unknown Social History Social History Element Codes Description Effective Dates Marital status Unknown Single 11/26/[address]: 75193244 Current every day smoker 2 packs daily 11/26/[address]: 573670984 Never drinks alcohol 11/26/2011 Has the patient [...] 281.1 ICD-10: D51.8 Active 06/02/2016 Unknown Vitamin B deficiency, unspecified ICD-9: 266.2 ICD-10: E53.9 Active 01/28/2016 Unknown Encounter for follow-up examination after completed [...] ICD-9: 281.1 ICD-10: D51.8 06/02/2016 Active Vitamin B deficiency, unspecified ICD-9: 266.2 ICD-10: E53.9 01/28/2016 Active Encounter for follow-up examination after completed [...] (vit B-12) 1,000 mcg/mL injection solution RxNorm: 886187 1 Milliliter(s) Inj 12/02/2016 12/02/2016 Inactive Wellbutrin SR 100 mg tablet,sustained-release RxNorm: 193545 TAKE ONE TABLET BY MOUTH EVERY NIGHT AT BEDTIME 10/30/2016 04/27/2017 Active cyanocobalamin (vit B-12) 1,000 mcg/mL injection solution RxNorm: 865820 Milliliter(s) Inj 10/29/2016 10/29/2016 Inactive cyanocobalamin (vit B-12) 1,000 mcg/mL injection solution RxNorm: 053407 1 Milliliter(s) Inj 10/01/2016 10/01/2016 Inactive cyanocobalamin (vit B-12) 1,000 mcg/mL injection solution RxNorm: 263656 Milliliter(s) Inj 09/02/2016 09/02/2016 Inactive cyanocobalamin (vit B-12) 1,000 mcg/mL injection solution RxNorm: 470474 Milliliter(s) Inj 08/05/2016 08/05/2016 Inactive cyanocobalamin (vit B-12) 1,000 mcg/mL injection solution RxNorm: 421720 1 Milliliter(s) Inj 07/02/2016 07/02/2016 Inactive cyanocobalamin (vit B-12) 1,000 mcg/mL injection solution RxNorm: 279301 Milliliter(s) Inj 06/03/2016 06/03/2016 Inactive cyanocobalamin (vit B-12) 1,000 mcg/mL injection solution RxNorm: 415017 Milliliter(s) Inj 2016 2016 Inactive Wellbutrin SR 100 mg tablet,sustained-release RxNorm: 270768 1 Tablet(s) PO QHS 04/01/2016 10/27/2016 Inactive cyanocobalamin (vit B-12) 1,000 mcg/mL injection solution RxNorm: 817671 Milliliter(s) Inj 04/01/2016 04/01/2016 Inactive cyanocobalamin (vit B-12) 1,000 mcg/mL injection solution RxNorm: 024631 1 Milliliter(s) Inj 03/05/2016 03/05/2016 Inactive cyanocobalamin (vit B-12) 1,000 mcg/mL injection solution RxNorm: 719681 Milliliter(s) Inj 01/29/2016 01/29/2016 Inactive cyanocobalamin (vit B-12) 1,000 mcg/mL injection solution RxNorm: 455599 Milliliter(s) Inj 01/02/2016 01/02/2016 Inactive mupirocin 2 % topical ointment RxNorm: 508087 1 Application TOP BID 12/04/2015 No Stop Date Active doxycycline hyclate 100 mg capsule RxNorm: 8548545 1 Capsule(s) PO BID 12/04/2015 12/13/2015 Inactive cyanocobalamin (vit B-12) 1,000 mcg/mL injection solution RxNorm: 155512 Milliliter(s) Inj 10/30/2015 10/30/2015 Inactive cyanocobalamin (B12)-cobamamide 5,000 mcg-100 mcg sublingual tablet RxNorm: 171461 Tablet(s) SL 10/02/2015 10/02/2015 Inactive Wellbutrin SR 100 mg tablet,sustained-release RxNorm: 410080 1 Tablet(s) PO QHS 09/08/2015 03/31/2016 Inactive cyanocobalamin (vit B-12) 1,000 mcg/mL injection solution RxNorm: 492420 Milliliter(s) Inj 08/29/2015 08/29/2015 Inactive cyanocobalamin (vit B-12) 1,000 mcg/mL injection solution RxNorm: 785206 Milliliter(s) Inj 07/31/2015 07/31/2015 Inactive cyanocobalamin (vit B-12) 1,000 mcg/mL injection solution RxNorm: 891034 Milliliter(s) Inj 06/05/2015 06/05/2015 Inactive cyanocobalamin (vit B-12) 1,000 mcg/mL injection solution RxNorm: 650549 Milliliter(s) Inj 05/01/2015 05/01/2015 Inactive cyanocobalamin (vit B-12) 1,000 mcg/mL injection solution RxNorm: 451266 Milliliter(s) Inj 04/03/2015 04/03/2015 Inactive cyanocobalamin (vit B-12) 1,000 mcg/mL injection solution RxNorm: 054608 Milliliter(s) Inj 02/28/2015 02/28/2015 Inactive cyanocobalamin (vit B-12) 1,000 mcg/mL injection solution RxNorm: 793954 Milliliter(s) Inj 01/30/2015 01/30/2015 Inactive Wellbutrin SR 100 mg tablet,sustained-release RxNorm: 609446 1 Tablet(s) PO QHS 01/16/2015 08/13/2015 Inactive cyanocobalamin (vit B-12) 1,000 mcg/mL injection solution RxNorm: 985208 1 Milliliter(s) Inj 01/02/2015 01/02/2015 Inactive cyanocobalamin (vit B-12) 1,000 mcg/mL injection solution RxNorm: 507982 1 Milliliter(s) Inj 11/28/2014 11/28/2014 Inactive cyanocobalamin (vit B-12) 1,000 mcg/mL injection solution RxNorm: 878600 Milliliter(s) Inj 10/31/2014 10/31/2014 Inactive [SAVINGS FOR NON-COVERED DRUGS -- BIN:300567, PCN: [id number], Group: XXXXX, ID# [id number], Questions: . THIS IS NOT INSURANCE.] cyanocobalamin (vit B-12) 1,000 mcg/mL injection solution RxNorm: 392822 1 Milliliter(s) Inj daily 10/03/2014 10/03/2014 Inactive [SAVINGS FOR NON-COVERED DRUGS -- BIN:394415, PCN: [id number], Group: XXXXX, ID# [id number], Questions: . THIS IS NOT INSURANCE.] cyanocobalamin (vit B-12) 1,000 mcg/mL injection solution RxNorm: 816254 Milliliter(s) Inj 08/30/2014 08/30/2014 Inactive [SAVINGS FOR NON-COVERED DRUGS -- BIN:033248, PCN: ASPROD1, Group: XXXXX, ID# [id number], Questions: . THIS IS NOT INSURANCE.] nystatin-triamcinolone 100,000 unit/g-0.1 % topical cream RxNorm: 9256129 1 Application TOP BID 08/02/2014 08/08/2014 Inactive [SAVINGS FOR UNINSURED PATIENTS -- BIN:737353, PCN: ASPROD1, Group: [id number], ID# [id number], Process claim through [employer], for questions: . THIS IS NOT INSURANCE.] cyanocobalamin (vit B-12) 1,000 mcg/mL injection solution RxNorm: 988915 Milliliter(s) Inj 08/02/2014 08/02/2014 Inactive [SAVINGS FOR UNINSURED PATIENTS -- BIN:881940, PCN: ASPROD1, Group: [id number], ID# [id number], Process claim through [employer], for questions: . THIS IS NOT INSURANCE.] cyanocobalamin (vit B-12) 1,000 mcg/mL injection kit RxNorm: 277375 Milliliter(s) Inj 07/04/2014 07/04/2014 Inactive [SAVINGS FOR UNINSURED PATIENTS -- BIN:878221, PCN: ASPROD1, Group: [id number], ID# [id number], Process claim through [employer], for questions: . THIS IS NOT INSURANCE.] cyanocobalamin (vit B-12) 1,000 mcg/mL injection solution RxNorm: 601367 Milliliter(s) Inj 05/30/2014 05/30/2014 Inactive cyanocobalamin (vit B-12) 1,000 mcg/mL injection solution RxNorm: 890759 Milliliter(s) Inj 05/02/2014 05/02/2014 Inactive cyanocobalamin (vit B-12) 1,000 mcg/mL injection solution RxNorm: 231931 Milliliter(s) Inj 04/05/2014 04/05/2014 Inactive cyanocobalamin (vit B-12) 1,000 mcg/mL injection solution RxNorm: 799533 Milliliter(s) Inj 03/07/2014 03/07/2014 Inactive cyanocobalamin (vit B-12) 1,000 mcg/mL injection solution RxNorm: 068090 1 Milliliter(s) Inj 02/01/2014 02/01/2014 Inactive cyanocobalamin (vit B-12) 1,000 mcg/mL injection solution RxNorm: 440216 1 Milliliter(s) Inj 12/30/2013 12/30/2013 Inactive [SAVINGS FOR UNINSURED PATIENTS -- BIN:901010, PCN: ASPROD1, Group: [id number], ID# [id number], Process claim through [employer], for questions: . THIS IS NOT INSURANCE.] cyanocobalamin (vit B-12) 1,000 mcg/mL injection solution RxNorm: 416689 Milliliter(s) Inj 11/30/2013 11/30/2013 Inactive cyanocobalamin (vit B-12) 1,000 mcg/mL injection solution RxNorm: 971744 1 Milliliter(s) Inj 11/02/2013 11/02/2013 Inactive Vitamin B-12 1,000 mcg/mL injection solution RxNorm: 573035 Milliliter(s) Inj 08/31/2013 08/31/2013 Inactive Vitamin B-12 1,000 mcg/mL injection solution RxNorm: 419406 1 Milliliter(s) Inj 08/04/2013 08/04/2013 Inactive Vitamin B-12 1,000 mcg/mL injection solution RxNorm: 548778 Milliliter(s) Inj 07/06/2013 07/06/2013 Inactive cyanocobalamin (vit B-12) 1,000 mcg/mL injection solution RxNorm: 692569 Milliliter(s) Inj 05/31/2013 05/31/2013 Inactive cyanocobalamin (vit B-12) 1,000 mcg/mL injection kit RxNorm: 332125 Milliliter(s) Inj 05/04/2013 05/04/2013 Inactive cyanocobalamin (vitamin B-12) 1,000 mcg/mL Injection RxNorm: 514259 Milliliter(s) Inj 03/30/2013 03/30/2013 Inactive cyanocobalamin (vitamin B-12) 1,000 mcg/mL Injection RxNorm: 433758 Milliliter(s) Inj 02/02/2013 02/02/2013 Inactive cyanocobalamin (vitamin B-12) 1,000 mcg/mL Injection RxNorm: 228270 Milliliter(s) Inj 12/29/2012 12/29/2012 Inactive cyanocobalamin (vitamin B-12) 1,000 mcg/mL Injection RxNorm: 928701 Milliliter(s) Inj 12/01/2012 12/01/2012 Inactive Vitamin B-12 1,000 mcg tablet RxNorm: 724881 Tablet(s) PO 11/03/2012 11/03/2012 Inactive Vitamin B-12 1,000 mcg/mL Injection RxNorm: 131369 1 Milliliter(s) Inj 09/30/2012 09/30/2012 Inactive triamcinolone acetonide 0.1 % Topical Cream RxNorm: 0813440 1 Application TOP BID 09/30/2012 10/13/2012 Inactive Vitamin B-12 1,000 mcg/mL Injection RxNorm: 620846 1 Milliliter(s) Inj 09/08/2012 09/08/2012 Inactive cyanocobalamin (vitamin B-12) 1,000 mcg/mL Injection RxNorm: 012283 1 Milliliter(s) Inj 08/25/2012 08/25/2012 Inactive cyanocobalamin (vitamin B-12) 1,000 mcg/mL Injection RxNorm: 244171 1 Milliliter(s) Inj 08/11/2012 08/11/2012 Inactive cyanocobalamin (vitamin B-12) 1,000 mcg/mL Injection RxNorm: 965644 1 Milliliter(s) Inj 07/21/2012 07/21/2012 Inactive Vitamin B-12 1,000 mcg/mL Injection RxNorm: 727779 Milliliter(s) Inj 07/07/2012 07/07/2012 Inactive cyanocobalamin (vitamin B-12) 1,000 mcg/mL Injection RxNorm: 488217 1 Milliliter(s) Inj 06/25/2012 06/25/2012 Inactive Vitamin B-12 1,000 mcg/mL Injection RxNorm: 818811 1 Milliliter(s) Inj 06/09/2012 06/09/2012 Inactive Vitamin B-12 1,000 mcg/mL Injection RxNorm: 833935 Milliliter(s) Inj 05/25/2012 05/25/2012 Inactive Vitamin B-12 1,000 mcg/mL Injection RxNorm: 178695 Milliliter(s) Inj 05/12/2012 05/12/2012 Inactive Vitamin B-12 1,000 mcg/mL Injection RxNorm: 199471 Milliliter(s) Inj 04/20/2012 04/20/2012 Inactive Vitamin B-12 1,000 mcg/mL Injection RxNorm: 221839 Milliliter(s) Inj 04/07/2012 04/07/2012 Inactive Vitamin B-12 1,000 mcg/mL Injection RxNorm: 668297 Milliliter(s) Inj 03/10/2012 03/10/2012 Inactive Vitamin B-12 1,000 mcg/mL Injection RxNorm: 387393 Milliliter(s) Inj 02/18/2012 02/18/2012 Inactive Vitamin B-12 1,000 mcg/mL Injection RxNorm: 386098 Milliliter(s) Inj 02/04/2012 02/04/2012 Inactive Vitamin B-12 1,000 mcg/mL Injection RxNorm: 627962 Milliliter(s) Inj 01/21/2012 01/21/2012 Inactive Vitamin B-12 1,000 mcg/mL Injection RxNorm: 624797 Milliliter(s) Inj 01/07/2012 01/07/2012 Inactive Vitamin B-12 1,000 mcg/mL Injection RxNorm: 297484 Milliliter(s) Inj 12/17/2011 12/17/2011 Inactive KCL 10 meq RxNorm: 1 PO daily 12/12/2011 12/16/2011 Inactive Vitamin B-12 1,000 mcg/mL Injection RxNorm: 533350 1 Milliliter(s) Inj monthly No Start Date Active Wellbutrin SR 200 mg Tab RxNorm: 888368 1 Tablet(s) PO daily No Start Date Active Anafranil 25 mg Cap RxNorm: 377859 1 Capsule(s) PO daily No Start Date Active Stelazine 5 mg Tab RxNorm: 975470 1 Tablet(s) PO BID No Start Date Active clonazepam 1 mg Tab RxNorm: 408404 1 Tablet(s) PO BID No Start Date Active risperidone 3 mg Tab RxNorm: 867080 Tablet(s) PO No Start Date Active 2 on even days 3 on odd days Cogentin 1 mg Tab RxNorm: 473879 1 Tablet(s) PO TID No Start Date Active Medication Administered Medication Codes Instructions Start Date Status cyanocobalamin (vit B-12) 1,000 mcg/mL injection solution RxNorm: 114599 1Milliliter 12/02/2016 No longer Active cyanocobalamin (vit B-12) 1,000 mcg/mL injection solution RxNorm: 372552 Milliliter 10/29/2016 No longer Active cyanocobalamin (vit B-12) 1,000 mcg/mL injection solution RxNorm: 138194 1Milliliter 10/01/2016 No longer Active cyanocobalamin (vit B-12) 1,000 mcg/mL injection solution RxNorm: 437509 Milliliter 09/02/2016 No longer Active cyanocobalamin (vit B-12) 1,000 mcg/mL injection solution RxNorm: 853395 Milliliter 08/05/2016 No longer Active cyanocobalamin (vit B-12) 1,000 mcg/mL injection solution RxNorm: 791394 1Milliliter 07/02/2016 No longer Active cyanocobalamin (vit B-12) 1,000 mcg/mL injection solution RxNorm: 973924 Milliliter 06/03/2016 No longer Active cyanocobalamin (vit B-12) 1,000 mcg/mL injection solution RxNorm: 502700 Milliliter 2016 No longer Active cyanocobalamin (vit B-12) 1,000 mcg/mL injection solution RxNorm: 823148 Milliliter 04/01/2016 No longer Active cyanocobalamin (vit B-12) 1,000 mcg/mL injection solution RxNorm: 627976 1Milliliter 03/05/2016 No longer Active cyanocobalamin (vit B-12) 1,000 mcg/mL injection solution RxNorm: 035832 Milliliter 01/29/2016 No longer Active cyanocobalamin (vit B-12) 1,000 mcg/mL injection solution RxNorm: 459742 Milliliter 01/02/2016 No longer Active cyanocobalamin (vit B-12) 1,000 mcg/mL injection solution RxNorm: 426471 Milliliter 10/30/2015 No longer Active cyanocobalamin (B12)-cobamamide 5,000 mcg-100 mcg sublingual tablet RxNorm: 964825 Tablet 10/02/2015 No longer Active cyanocobalamin (vit B-12) 1,000 mcg/mL injection solution RxNorm: 663341 Milliliter 08/29/2015 No longer Active cyanocobalamin (vit B-12) 1,000 mcg/mL injection solution RxNorm: 993965 Milliliter 07/31/2015 No longer Active cyanocobalamin (vit B-12) 1,000 mcg/mL injection solution RxNorm: 750282 Milliliter 06/05/2015 No longer Active cyanocobalamin (vit B-12) 1,000 mcg/mL injection solution RxNorm: 418521 Milliliter 05/01/2015 No longer Active cyanocobalamin (vit B-12) 1,000 mcg/mL injection solution RxNorm: 888210 Milliliter 04/03/2015 No longer Active cyanocobalamin (vit B-12) 1,000 mcg/mL injection solution RxNorm: 701192 Milliliter 02/28/2015 No longer Active cyanocobalamin (vit B-12) 1,000 mcg/mL injection solution RxNorm: 592856 Milliliter 01/30/2015 No longer Active cyanocobalamin (vit B-12) 1,000 mcg/mL injection solution RxNorm: 481655 1Milliliter 01/02/2015 No longer Active cyanocobalamin (vit B-12) 1,000 mcg/mL injection solution RxNorm: 837387 1Milliliter 11/28/2014 No longer Active cyanocobalamin (vit B-12) 1,000 mcg/mL injection solution RxNorm: 220408 Milliliter 10/31/2014 No longer Active cyanocobalamin (vit B-12) 1,000 mcg/mL injection solution RxNorm: 062159 1Milliliterdaily 10/03/2014 No longer Active cyanocobalamin (vit B-12) 1,000 mcg/mL injection solution RxNorm: 379737 Milliliter 08/30/2014 No longer Active cyanocobalamin (vit B-12) 1,000 mcg/mL injection solution RxNorm: 160811 Milliliter 08/02/2014 No longer Active cyanocobalamin (vit B-12) 1,000 mcg/mL injection kit RxNorm: 849880 Milliliter 07/04/2014 No longer Active cyanocobalamin (vit B-12) 1,000 mcg/mL injection solution RxNorm: 023018 Milliliter 05/30/2014 No longer Active cyanocobalamin (vit B-12) 1,000 mcg/mL injection solution RxNorm: 438607 Milliliter 05/02/2014 No longer Active cyanocobalamin (vit B-12) 1,000 mcg/mL injection solution RxNorm: 506206 Milliliter 04/05/2014 No longer Active cyanocobalamin (vit B-12) 1,000 mcg/mL injection solution RxNorm: 959836 Milliliter 03/07/2014 No longer Active cyanocobalamin (vit B-12) 1,000 mcg/mL injection solution RxNorm: 132971 1Milliliter 02/01/2014 No longer Active cyanocobalamin (vit B-12) 1,000 mcg/mL injection solution RxNorm: 960743 1Milliliter 12/30/2013 No longer Active cyanocobalamin (vit B-12) 1,000 mcg/mL injection solution RxNorm: 936812 Milliliter 11/30/2013 No longer Active cyanocobalamin (vit B-12) 1,000 mcg/mL injection solution RxNorm: 012634 1Milliliter 11/02/2013 No longer Active Vitamin B-12 1,000 mcg/mL injection solution RxNorm: 355960 Milliliter 08/31/2013 No longer Active Vitamin B-12 1,000 mcg/mL injection solution RxNorm: 749179 1Milliliter 08/04/2013 No longer Active Vitamin B-12 1,000 mcg/mL injection solution RxNorm: 347372 Milliliter 07/06/2013 No longer Active cyanocobalamin (vit B-12) 1,000 mcg/mL injection solution RxNorm: 244083 Milliliter 05/31/2013 No longer Active cyanocobalamin (vit B-12) 1,000 mcg/mL injection kit RxNorm: 075794 Milliliter 05/04/2013 No longer Active cyanocobalamin (vitamin B-12) 1,000 mcg/mL Injection RxNorm: 930576 Milliliter 03/30/2013 No longer Active cyanocobalamin (vitamin B-12) 1,000 mcg/mL Injection RxNorm: 550106 Milliliter 02/02/2013 No longer Active cyanocobalamin (vitamin B-12) 1,000 mcg/mL Injection RxNorm: 469368 Milliliter 12/29/2012 No longer Active cyanocobalamin (vitamin B-12) 1,000 mcg/mL Injection RxNorm: 541956 Milliliter 12/01/2012 No longer Active Vitamin B-12 1,000 mcg tablet RxNorm: 781116 Tablet 11/03/2012 No longer Active Vitamin B-12 1,000 mcg/mL Injection RxNorm: 749340 1Milliliter 09/30/2012 No longer Active Vitamin B-12 1,000 mcg/mL Injection RxNorm: 816285 1Milliliter 09/08/2012 No longer Active cyanocobalamin (vitamin B-12) 1,000 mcg/mL Injection RxNorm: 201480 1Milliliter 08/25/2012 No longer Active cyanocobalamin (vitamin B-12) 1,000 mcg/mL Injection RxNorm: 310700 1Milliliter 08/11/2012 No longer Active cyanocobalamin (vitamin B-12) 1,000 mcg/mL Injection RxNorm: 546207 1Milliliter 07/21/2012 No longer Active Vitamin B-12 1,000 mcg/mL Injection RxNorm: 617460 Milliliter 07/07/2012 No longer Active cyanocobalamin (vitamin B-12) 1,000 mcg/mL Injection RxNorm: 885331 1Milliliter 06/25/2012 No longer Active Vitamin B-12 1,000 mcg/mL Injection RxNorm: 678440 1Milliliter 06/09/2012 No longer Active Vitamin B-12 1,000 mcg/mL Injection RxNorm: 702628 Milliliter 05/25/2012 No longer Active Vitamin B-12 1,000 mcg/mL Injection RxNorm: 289676 Milliliter 05/12/2012 No longer Active Vitamin B-12 1,000 mcg/mL Injection RxNorm: 351582 Milliliter 04/20/2012 No longer Active Vitamin B-12 1,000 mcg/mL Injection RxNorm: 931622 Milliliter 04/07/2012 No longer Active Vitamin B-12 1,000 mcg/mL Injection RxNorm: 227479 Milliliter 03/10/2012 No longer Active Vitamin B-12 1,000 mcg/mL Injection RxNorm: 329052 Milliliter 02/18/2012 No longer Active Vitamin B-12 1,000 mcg/mL Injection RxNorm: 051872 Milliliter 02/04/2012 No longer Active Vitamin B-12 1,000 mcg/mL Injection RxNorm: 880795 Milliliter 01/21/2012 No longer Active Vitamin B-12 1,000 mcg/mL Injection RxNorm: 350605 Milliliter 01/07/2012 No longer Active Vitamin B-12 1,000 mcg/mL Injection RxNorm: 476140 Milliliter 12/17/2011 No longer Active Immunizations Vaccine [...] deficiency anemias ICD-10: D51.8 ICD-9: 281.1 09/02/2016 Vitamin B deficiency, unspecified ICD-10: E53.9 ICD-9: 266.2 01/29/2016 Encounter for follow-up examination after completed treatment [...] Code Item Item Code Result Date B12 Kdf329 B12 637.00 pg/ml 07/31/2015 FOLIC ACID 1598508 FOLIC ACID >24.0 NG/ML 08/25/2012 VIT B 12 6896923 VIT B 12 1591 PG/ML 08/25/2012 HOMOCYS 3759848 HOMOCYS 6.8 UMOL/L 08/25/2012 TSH 2070761 TSH 1.386 uIU/ML 07/07/2012 CBC 1484851 WBC 6.4 10e9/L 07/07/2012 CBC 1599094 RBC 4.92 10e12/L 07/07/2012 CBC 9947560 HGB 15.0 g/dL 07/07/2012 CBC 6900477 HCT DET 43.3 % 07/07/2012 CBC 9916725 MCV 88.0 fL 07/07/2012 CBC 8341449 MCH 30.5 pg 07/07/2012 CBC 5167081 MCHC 34.6 g/dL 07/07/2012 CBC 0607376 PLT 180 10e9/L 07/07/2012 CBC 3824299 MPV 10.0 fL 07/07/2012 CBC 9951752 KENRICK % 59.0 % 07/07/2012 CBC 7155748 LY % 24.1 % 07/07/2012 CBC 5979429 MON % 12.5 % 07/07/2012 CBC 7280411 EOS % 4.1 % 07/07/2012 CBC 7091820 BASO % 0.3 % 07/07/2012 CBC 3688091 RDW 13.4 % 07/07/2012 CBC 6170887 ABS KENRICK 3.78 10e9/L 07/07/2012 CBC 2510569 ABS LYMPH 1.54 10e9/L 07/07/2012 CBC 9760754 ABS MONO 0.80 10e9/L 07/07/2012 CBC 4030423 ABS EOS 0.26 10e9/L 07/07/2012 CBC 5308584 ABS BASO 0.02 10e9/L 07/07/2012 CBC 8711839 RDW-SD 42.9 fL 07/07/2012 CHEM 14 4472400 AST 29 U/L 07/07/2012 CHEM 14 8931473 ALT 29 U/L 07/07/2012 CHEM 14 8639887 BUN 9 MG/DL 07/07/2012 CHEM 14 7025507 ALBUMIN 4.1 GM/DL 07/07/2012 CHEM 14 4284979 CHLORIDE 103 MMOL/L 07/07/2012 CHEM 14 6741065 BILI TOT 0.3 MG/DL 07/07/2012 CHEM 14 0111263 ALK PHOS 88 U/L 07/07/2012 CHEM 14 1558255 SODIUM 141 MMOL/L 07/07/2012 CHEM 14 9246279 CREATININE 1.38 MG/DL 07/07/2012 CHEM 14 9116123 CALCIUM 9.3 MG/DL 07/07/2012 CHEM 14 4843611 POTASSIUM 3.7 MMOL/L 07/07/2012 CHEM 14 0130465 PROT TOT 6.4 GM/DL 07/07/2012 CHEM 14 3622591 GLUCOSE 76 MG/DL 07/07/2012 CHEM 14 2609390 BICARB 28 MMOL/L 07/07/2012 CHEM 14 6202352 ANION GAP 10 MMOL/L 07/07/2012 GFR CALC 7552032 GFR AA >60 ML/MIN 07/07/2012 GFR CALC 5711869 GFR NON-AA 52.0L ML/MIN 07/07/2012 B12 FOLAT 8701478 VIT B 12 211 PG/ML 12/10/2011 B12 FOLAT 7034097 FOLIC ACID 3.9 NG/ML 12/10/2011 GFR CALC 8529010 GFR AA >60 ML/MIN 12/10/2011 GFR CALC 3903086 GFR NON-AA >60 ML/MIN 12/10/2011 CPK 0952765 CPK 135 U/L 12/10/2011 CHEM 14 5856814 AST 62 U/L 12/10/2011 CHEM 14 9448737 ALT 114 U/L 12/10/2011 CHEM 14 1178854 BUN 10 MG/DL 12/10/2011 CHEM 14 2204610 ALBUMIN 3.7 GM/DL 12/10/2011 CHEM 14 1748563 CHLORIDE 103 MMOL/L 12/10/2011 CHEM 14 3651243 BILI TOT 0.5 MG/DL 12/10/2011 CHEM 14 7568465 ALK PHOS 129 U/L 12/10/2011 CHEM 14 9927551 SODIUM 140 MMOL/L 12/10/2011 CHEM 14 2892349 CREATININE 1.17 MG/DL 12/10/2011 CHEM 14 0968804 CALCIUM 8.8 MG/DL 12/10/2011 CHEM 14 6099082 POTASSIUM 3.4 MMOL/L 12/10/2011 CHEM 14 7788359 PROT TOT 5.8 GM/DL 12/10/2011 CHEM 14 6388620 GLUCOSE 84 MG/DL 12/10/2011 CHEM 14 2985397 BICARB 26 MMOL/L 12/10/2011 CHEM 14 5988031 ANION GAP 11 MMOL/L 12/10/2011 URINALYSIS NONAUTO W/O SCOPE 60816 Specific Gordon 1.005 DateTime(Free Text in Aprima) URINALYSIS NONAUTO W/O SCOPE 84515 PH 6 DateTime(Free Text in Aprima) URINALYSIS NONAUTO W/O SCOPE 47537 GLUCOSE neg DateTime(Free Text in Aprima) URINALYSIS NONAUTO W/O SCOPE 13788 Protein neg DateTime(Free Text in Aprima) URINALYSIS NONAUTO W/O SCOPE 19398 Blood neg DateTime(Free Text in Aprima) URINALYSIS NONAUTO W/O SCOPE 83512 Bilirubin neg DateTime(Free Text in Aprima) URINALYSIS NONAUTO W/O SCOPE 43438 Ketones neg DateTime(Free Text in Aprima) URINALYSIS NONAUTO W/O SCOPE 00174 Urobilinogen neg DateTime(Free Text in Aprima) URINALYSIS NONAUTO W/O SCOPE 15976 Nitrite neg DateTime(Free Text in Aprima) URINALYSIS NONAUTO W/O SCOPE 91076 Leukocytes neg DateTime(Free Text in Aprima) URINALYSIS NONAUTO W/O SCOPE 07797 Specific Gordon 1.010 DateTime(Free Text in Aprima) URINALYSIS NONAUTO W/O SCOPE 87463 PH 6.5 DateTime(Free Text in Aprima) URINALYSIS NONAUTO W/O SCOPE 34073 GLUCOSE neg DateTime(Free Text in Aprima) URINALYSIS NONAUTO W/O SCOPE 66701 Protein neg DateTime(Free Text in Aprima) URINALYSIS NONAUTO W/O SCOPE 97013 Blood neg DateTime(Free Text in Aprima) URINALYSIS NONAUTO W/O SCOPE 14146 Bilirubin neg DateTime(Free Text in Aprima) URINALYSIS NONAUTO W/O SCOPE 79284 Ketones neg DateTime(Free Text in Aprima) URINALYSIS NONAUTO W/O SCOPE 21399 Urobilinogen neg DateTime(Free Text in Aprima) URINALYSIS NONAUTO W/O SCOPE 12530 Nitrite neg DateTime(Free Text in Aprima) URINALYSIS NONAUTO W/O SCOPE 00676 Leukocytes neg DateTime(Free Text in Aprima) Review [...] recall three words at five minutes 01/16/2015 [facility] [place] exam points Full Exam - General [...] 1994 Ears/Nose/Throat oral cavity/pharynx/larynx Overall: no masses 03/02/2013 [...] 03/02/2013 None Full Exam - General 1994 Eyes conjunctiva/eyelids Overall: eyelids normal 03/02/2013 None Full Exam - General 1994 Eyes pupils and irises Overall: pupils equal, round, reactive to light and accomodation 03/02/2013 None Full Exam - General 1994 Cardiovascular auscultation of heart Systolic murmur grade: II/ 03/02/2013 None Full Exam - General 1994 Abdomen abdominal exam Overall: no tenderness 03/02/2013 None Full Exam - General 1994 Abdomen abdominal exam Overall: normal bowel sounds 03/02/2013 None Full Exam - General 1994 Abdomen liver and spleen exam Overall: no hepatosplenomegaly 03/02/2013 None Full Exam - General 1994 Abdomen liver and spleen exam Overall: no stigmata of chronic liver disease 03/02/2013 None Full Exam - General 1994 Musculoskeletal spine, ribs and pelvis Posture: lordosis 03/02/2013 None Full Exam - General 1994 Musculoskeletal head and neck Overall: head atraumatic 03/02/2013 None Full Exam - General 1994 [...] congruent 03/02/2013 None Full Exam - General 1995 [...] recall three words at five minutes 03/02/2013 [place] [facility] exam [facility] Full Exam - Dermatology Constitutional [...] time 07/07/2012 None Full Exam - General 1994 Psychiatric mood and affect Mood: happy 07/07/2012 None Full Exam - General 1994 Psychiatric mood and affect Affect: mood congruent 07/07/2012 None Full Exam - General 1994 [...] recall three words at five minutes 07/07/2012 [facility] exam points Full Exam - General [...] recall three words at five minutes 01/07/2012 [facility] exam points Full Exam - General [...] unsteadiness 12/17/2011 None Full Exam - General 1995 Neurologic cranial nerves Overall: crainial nerves 2 - 12 grossly intact 12/17/2011 None Full Exam - General 1994 Psychiatric orientation/consciousness Overall: oriented to person, place and time 12/17/2011 None Full Exam - General 1995 Psychiatric mood and affect Mood: happy 12/17/2011 None Full Exam - General 1995 Psychiatric mood and affect Affect: mood congruent 12/17/2011 None Full Exam - General 1995 Psychiatric cognition/memory Remote memory: poor recollection of past events 12/17/2011 None Full Exam - General 1995 Psychiatric cognition/memory Recent past memory: unable to recall recent news events 12/17/2011 None Full Exam - General 1995 Psychiatric cognition/memory Immediate memory: unable to repeat 6 digits 12/17/2011 None Full Exam - General 1995 Psychiatric cognition/memory Immediate memory: unable to recall three words at five minutes 12/17/2011 [facility] exam points Full Exam - General [...] General 1995 Ears/Nose/Throat lips/teeth/gingiva Overall: benign lips 12/10/2011 None Full Exam - General 1995 Ears/Nose/Throat lips/teeth/gingiva Overall: normal dentition 12/10/2011 None [...] unsteadiness 12/10/2011 None Full Exam - General 1994 [...] recall three words at five minutes 12/10/2011 [facility] Sat exam points Full Exam [...] recall three words at five minutes 11/26/2011 [facility] exam points Procedures Procedure Codes Date THER/PROPH/DIAG INJ SC/IM CPT-4: 14819Bmxcwkl 12/02/2016 VITAMIN B12 INJECTION CPT-4: U0911Hbsbmay 12/02/2016 THER/PROPH/DIAG INJ SC/IM CPT-4: 46206Fppuvlx 10/29/2016 VITAMIN B12 INJECTION CPT-4: Y9013Idobuzd 10/29/2016 THER/PROPH/DIAG INJ SC/IM CPT-4: 35153Purozcm 10/01/2016 VITAMIN B12 INJECTION CPT-4: W7582Sgydvle 10/01/2016 TOBACCO-USE HIGH RISK OB 3-[address]: 997056541 CPT-4: M6689Ocrxiks 09/02/2016 VITAMIN B12 INJECTION CPT-4: J2384Rqpueew 09/02/2016 THER/PROPH/DIAG INJ SC/IM CPT-4: 18427Zbowbnv 09/02/2016 THER/PROPH/DIAG INJ SC/IM CPT-4: 54194Tvruwqc 08/05/2016 VITAMIN B12 INJECTION CPT-4: E7554Cjpmilr 08/05/2016 THER/PROPH/DIAG INJ SC/IM CPT-4: 32495Zvmsmee 07/02/2016 VITAMIN B12 INJECTION CPT-4: K5910Bvcghes 07/02/2016 VITAMIN B12 INJECTION CPT-4: C3480Bkkabwp 06/03/2016 THER/PROPH/DIAG INJ SC/IM CPT-4: 34591Rkidbmv 06/03/2016 THER/PROPH/DIAG INJ SC/IM CPT-4: 80463Wbxtkyy 2016 VITAMIN B12 INJECTION CPT-4: L3557Neytnhn 2016 THER/PROPH/DIAG INJ SC/IM CPT-4: 14321Ycplhyh 04/01/2016 VITAMIN B12 INJECTION CPT-4: V6301Pqfzwgf 04/01/2016 VITAMIN B12 INJECTION CPT-4: Q3415Dnpgsqu 03/05/2016 THER/PROPH/DIAG INJ SC/IM CPT-4: 29830Nkwmtpt 03/05/2016 TOBACCO-USE HIGH RISK OB 3-[address]: 147325886 CPT-4: X2401Hqckuls 01/29/2016 THER/PROPH/DIAG INJ SC/IM CPT-4: 77754Zhkxvav 01/29/2016 VITAMIN B12 INJECTION CPT-4: D4041Ohmxmzt 01/29/2016 THER/PROPH/DIAG INJ SC/IM CPT-4: 66952Abchzzi 01/02/2016 VITAMIN B12 INJECTION CPT-4: W5635Bpmytzn 01/02/2016 VITAMIN B12 INJECTION CPT-4: R8113Ygpxdig 12/04/2015 THER/PROPH/DIAG INJ SC/IM CPT-4: 64104Estxhxq 12/04/2015 THER/PROPH/DIAG INJ SC/IM CPT-4: 95528Ubmsopg 10/30/2015 VITAMIN B12 INJECTION CPT-4: Y4046Ddvgiaq 10/30/2015 PPPS, SUBSEQ VISIT CPT-4: Z9394Gvfblgx 10/11/2015 TOBACCO-USE HIGH RISK OB 3-[address]: 376405846 CPT-4: A5084Lthinrr 10/11/2015 TOBACCO-USE HIGH RISK OB 3-[address]: 366378099 CPT-4: J3619Lkehkgk 10/02/2015 THER/PROPH/DIAG INJ SC/IM CPT-4: 45955Kksyuqb 10/02/2015 VITAMIN B12 INJECTION CPT-4: Y2579Jgjhqbq 10/02/2015 THER/PROPH/DIAG INJ SC/IM CPT-4: 43890Zwxpepf 08/29/2015 VITAMIN B12 INJECTION CPT-4: K0766Dfomrum 08/29/2015 THER/PROPH/DIAG INJ SC/IM CPT-4: 40123Rgpixen 07/31/2015 VITAMIN B12 INJECTION CPT-4: E4436Khgeuat 07/31/2015 THER/PROPH/DIAG INJ SC/IM CPT-4: 03212Nxbboex 07/03/2015 VITAMIN B12 INJECTION CPT-4: M2534Pdwdmcw 07/03/2015 THER/PROPH/DIAG INJ SC/IM CPT-4: 96063Bzbphyr 06/05/2015 VITAMIN B12 INJECTION CPT-4: R8793Sullfow 06/05/2015 VITAMIN B12 INJECTION CPT-4: E5302Zjkkdpu 05/01/2015 THER/PROPH/DIAG INJ SC/IM CPT-4: 34662Ekvvszx 05/01/2015 THER/PROPH/DIAG INJ SC/IM CPT-4: 64035Iblmosq 04/03/2015 VITAMIN B12 INJECTION CPT-4: S5325Fdrnslq 04/03/2015 THER/PROPH/DIAG INJ SC/IM CPT-4: 52187Bdqiuwl 02/28/2015 VITAMIN B12 INJECTION CPT-4: Z8292Hmwkopb 02/28/2015 THER/PROPH/DIAG INJ SC/IM CPT-4: 47599Lgtlfkl 01/30/2015 VITAMIN B12 INJECTION CPT-4: M0741Rphmuaf 01/30/2015 VITAMIN B12 INJECTION CPT-4: J9052Mmymcyh 01/02/2015 THER/PROPH/DIAG INJ SC/IM CPT-4: 72327Mgseczz 01/02/2015 THER/PROPH/DIAG INJ SC/IM CPT-4: 76920Vysllkl 11/28/2014 VITAMIN B12 INJECTION CPT-4: J5177Jawxhoc 11/28/2014 THER/PROPH/DIAG INJ SC/IM CPT-4: 03612Patftlu 10/31/2014 VITAMIN B12 INJECTION CPT-4: C3632Ievbath 10/31/2014 THER/PROPH/DIAG INJ SC/IM CPT-4: 91067Hblirxc 10/03/2014 VITAMIN B12 INJECTION CPT-4: I6940Yhatxab 10/03/2014 THER/PROPH/DIAG INJ SC/IM CPT-4: 10517Tygijhk 08/30/2014 VITAMIN B12 INJECTION CPT-4: S8549Qapwhnw 08/30/2014 THER/PROPH/DIAG INJ SC/IM CPT-4: 65882Dbrymoa 08/02/2014 VITAMIN B12 INJECTION CPT-4: P0949Tqknbvw 08/02/2014 THER/PROPH/DIAG INJ SC/IM CPT-4: 72904Hcyiizf 07/04/2014 VITAMIN B12 INJECTION CPT-4: B3374Djegdsc 07/04/2014 THER/PROPH/DIAG INJ SC/IM CPT-4: 08449Mkbkqou 05/30/2014 VITAMIN B12 INJECTION CPT-4: F6447Qkzvuvk 05/30/2014 THER/PROPH/DIAG INJ SC/IM CPT-4: 09759Efhvhmi 05/02/2014 VITAMIN B12 INJECTION CPT-4: M2060Vnxdals 05/02/2014 THER/PROPH/DIAG INJ SC/IM CPT-4: 10020Kyazqdf 04/05/2014 THER/PROPH/DIAG INJ SC/IM CPT-4: 95445Tusjoty 03/07/2014 VITAMIN B12 INJECTION CPT-4: K8527Kapbzoi 03/07/2014 THER/PROPH/DIAG INJ SC/IM CPT-4: 48931Vsetgzf 02/01/2014 VITAMIN B12 INJECTION CPT-4: X1320Sbfnctq 02/01/2014 VITAMIN B12 INJECTION CPT-4: F8280Yviydld 12/30/2013 THER/PROPH/DIAG INJ SC/IM CPT-4: 35301Llhjtpx 12/30/2013 THER/PROPH/DIAG INJ SC/IM CPT-4: 07640Jelcvjo 11/30/2013 VITAMIN B12 INJECTION CPT-4: H9973Gbatsqe 11/30/2013 THER/PROPH/DIAG INJ SC/IM CPT-4: 49046Kgrjxrk 11/02/2013 VITAMIN B12 INJECTION CPT-4: W9112Ajxlarn 11/02/2013 THER/PROPH/DIAG INJ SC/IM CPT-4: 92042Ojolboa 08/31/2013 VITAMIN B12 INJECTION CPT-4: I2534Jkvxast 08/31/2013 THER/PROPH/DIAG INJ SC/IM CPT-4: 11394Uvezams 08/04/2013 VITAMIN B12 INJECTION CPT-4: G8130Cdginak 08/04/2013 VITAMIN B12 INJECTION CPT-4: U6415Ljjfmqd 07/06/2013 THER/PROPH/DIAG INJ SC/IM CPT-4: 00387Vinferf 07/06/2013 THER/PROPH/DIAG INJ SC/IM CPT-4: 77549Mxfotal 05/31/2013 VITAMIN B12 INJECTION CPT-4: V0501Btspkqy 05/31/2013 ADMIN INFLUENZA VIRUS VAC CPT-4: Y1847Fmmwfsc 05/04/2013 FLULAVAL VACC, 3 YRS & >, IM CPT-4: T9322Fwhejcu 05/04/2013 THER/PROPH/DIAG INJ SC/IM CPT-4: 76418Icaryny 05/04/2013 VITAMIN B12 INJECTION CPT-4: G9326Ckctgjb 05/04/2013 THER/PROPH/DIAG INJ SC/IM CPT-4: 05047Oyimhmg 03/30/2013 VITAMIN B12 INJECTION CPT-4: N1431Vscmjns 03/30/2013 THER/PROPH/DIAG INJ SC/IM CPT-4: 75897Ionkppi 03/02/2013 VITAMIN B12 INJECTION CPT-4: K9141Aedbyrn 03/02/2013 07094 EST. PATIENT, LEVEL IV CPT-4: 31340Gzthzci 03/02/2013 THER/PROPH/DIAG INJ SC/IM CPT-4: 00719Plqzjgi 02/02/2013 VITAMIN B12 INJECTION CPT-4: F3760Wdrzywl 02/02/2013 THER/PROPH/DIAG INJ SC/IM CPT-4: 34452Ybcujpr 12/29/2012 VITAMIN B12 INJECTION CPT-4: T9731Juwprya 12/29/2012 TRIAMCINOLONE ACET INJ NOS CPT-4: G5668Ekmjywc 12/01/2012 VITAMIN B12 INJECTION CPT-4: R0424Gnnqsja 12/01/2012 VITAMIN B12 INJECTION CPT-4: D0778Ijzhctf 11/03/2012 THER/PROPH/DIAG INJ SC/IM CPT-4: 75025Cdnnegq 11/03/2012 THER/PROPH/DIAG INJ SC/IM CPT-4: 46957Apnqnpm 09/30/2012 VITAMIN B12 INJECTION CPT-4: P7562Fnxvvat 09/30/2012 PRESCRIP TRANSMIT VIA ERX SY CPT-4: G0687Lcwmxlq 09/30/2012 VITAMIN B12 INJECTION CPT-4: N2661Nzcjiwe 09/08/2012 THER/PROPH/DIAG INJ SC/IM CPT-4: 81938Gtajyan 09/08/2012 THER/PROPH/DIAG INJ SC/IM CPT-4: 38737Vinhelf 08/25/2012 ROUTINE VENIPUNCTURE CPT-4: 98594Isgzjtn 08/25/2012 VITAMIN B12 INJECTION CPT-4: X1969Oqzgbqu 08/25/2012 THER/PROPH/DIAG INJ SC/IM CPT-4: 53763Hlrqfgv 08/11/2012 VITAMIN B12 INJECTION CPT-4: S2166Lkzsamm 08/11/2012 VITAMIN B12 INJECTION CPT-4: V4262Jhpxhyx 07/21/2012 THER/PROPH/DIAG INJ SC/IM CPT-4: 56346Tzjhgmc 07/21/2012 THER/PROPH/DIAG INJ SC/IM CPT-4: 99898Xmxfztn 07/07/2012 VITAMIN B12 INJECTION CPT-4: W5631Ncfffys 07/07/2012 ROUTINE VENIPUNCTURE CPT-4: 04160Iugjbvv 07/07/2012 VITAMIN B12 INJECTION CPT-4: A4322Peazimo 06/25/2012 THER/PROPH/DIAG INJ SC/IM CPT-4: 90006Bcylbux 06/25/2012 VITAMIN B12 INJECTION CPT-4: I4169Mxqrqen 06/09/2012 THER/PROPH/DIAG INJ SC/IM CPT-4: 90017Vaiglrh 06/09/2012 VITAMIN B12 INJECTION CPT-4: F2921Widmczc 05/25/2012 THER/PROPH/DIAG INJ SC/IM CPT-4: 00094Hgplxdu 05/25/2012 VITAMIN B12 INJECTION CPT-4: M3150Ilzmuix 05/12/2012 THER/PROPH/DIAG INJ SC/IM CPT-4: 47641Zralvnc 05/12/2012 VITAMIN B12 INJECTION CPT-4: S6903Bdqmlbn 04/20/2012 THER/PROPH/DIAG INJ SC/IM CPT-4: 68600Zakyltf 04/20/2012 THER/PROPH/DIAG INJ SC/IM CPT-4: 79556Wadmerv 04/07/2012 VITAMIN B12 INJECTION CPT-4: Q2808Cupmwmb 04/07/2012 VITAMIN B12 INJECTION CPT-4: V0495Fyiymeb 03/10/2012 THER/PROPH/DIAG INJ SC/IM CPT-4: 88367Jakmsal 03/10/2012 VITAMIN B12 INJECTION CPT-4: O1574Crjuvdg 02/18/2012 THER/PROPH/DIAG INJ SC/IM CPT-4: 48167Uugzrau 02/18/2012 THER/PROPH/DIAG INJ SC/IM CPT-4: 41607Lrpolfw 02/04/2012 VITAMIN B12 INJECTION CPT-4: K3927Xphvwli 02/04/2012 THER/PROPH/DIAG INJ SC/IM CPT-4: 38699Ptyazws 01/21/2012 VITAMIN B12 INJECTION CPT-4: M0633Eemtxwq 01/21/2012 VITAMIN B12 INJECTION CPT-4: H1358Ecnrovc 01/07/2012 VITAMIN B12 INJECTION CPT-4: U6239Paiipie 12/17/2011 URINALYSIS NONAUTO W/O SCOPE CPT-4: 63672Mhbwkvg 12/10/2011 ROUTINE VENIPUNCTURE CPT-4: 49693Ogukppe 12/10/2011 URINALYSIS NONAUTO W/O SCOPE CPT-4: 13103Nodnpky 11/26/2011 Vital Signs Date Vital 12/18/2015 Blood Pressure 1: 140/68 Code: 8480-6 BMI: 25.7 Code: 46388-9 Heart Rate 1: 83 bpm Height: 5'7" SpO2: 95% Weight: 164 lbs 10/11/2015 Blood Pressure 1: 128/80 Code: 8480-6 BMI: 26.0 Code: 60472-2 Heart Rate 1: 80 bpm Height: 5'7" SpO2: 97% Waist Measure (cm): 89 cm Weight: 166 lbs 01/16/2015 Blood Pressure 1: 122/84 Code: 8480-6 BMI: 25.7 Code: 62379-8 Heart Rate 1: 68 bpm Height: 5'7" SpO2: 95% Weight: 164 lbs 08/02/2014 Blood Pressure 1: 140/86 Code: 8480-6 BMI: 25.1 Code: 24552-8 Heart Rate 1: 64 bpm Height: 5'7" Weight: 160 lbs 03/02/2013 Blood Pressure 1: 108/74 Code: 8480-6 BMI: 28.3 Code: 00828-3 Heart Rate 1: 80 bpm Height: 5'7" Weight: 181 lbs 09/30/2012 Blood Pressure 1: 126/74 Code: 8480-6 Heart Rate 1: 64 bpm Weight: 07/07/2012 Blood Pressure 1: 130/84 Code: 8480-6 BMI: 26.6 Code: 26885-1 Heart Rate 1: 80 bpm Height: 5'7" [...] 1: 110/68 Code: 8480-6 BMI: 25.7 Code: 84749-6 Heart Rate 1: 68 bpm Height: 5'7" [...] data Encounters Encounter Performer Location Codes Date EST. PATIENT, LEVEL III Diagnosis: Encounter for follow-up examination after completed treatment for conditions other than malignant neoplasm[ICD10: Z09] Susan Vitale MD, [facility] CPT-4: 08722 12/18/2015 05812 EST. PATIENT, LEVEL IV Diagnosis: Cellulitis of right lower limb[ICD10: L03.115] Diagnosis: Vitamin B12 deficiency anemia due to intrinsic factor deficiency[ICD10: D51.0] Loren Vitale MD, [facility] CPT-4: 20232 12/04/2015 ([id number]) Miscellaneous no charge Diagnosis: Vitamin B deficiency, unspecified[ICD10: E53.9] Loren Vitale MD, [facility] CPT-4: 83806 07/31/2015 ([id number]) 33572 EST. PATIENT, LEVEL IV Diagnosis: Schizophrenia[ICD9: 295.90] Diagnosis: DEPRESSIVE DISORDER NEC[ICD9: 311] Diagnosis: Medication dose changed[ICD9: V58.69] Diagnosis: Leg pain[ICD9: 729.5] Loren Vitale MD, [facility] CPT-4: 85938 01/16/2015 ([id number]) 38688 EST. PATIENT, LEVEL III Diagnosis: Rash[ICD9: 782.1] Camille Vitale MD, [facility] CPT-4: 01507 08/02/2014 ([id number]) Miscellaneous no charge Diagnosis: SCHIZO NOS, CHRN[ICD9: 295.92] Loren Vitale MD, [facility] CPT-4: 54513 05/03/2013 ([id number]) 02651 EST. PATIENT, LEVEL III Diagnosis: Rash[ICD9: 782.1] Diagnosis: B-COMPLEX DEFIC NEC[ICD9: 266.2] Loren Vitale MD, [facility] CPT-4: 39277 09/30/2012 ([id number]) 11270 EST. PATIENT, LEVEL IV Diagnosis: SCHIZO NOS, CHRN[ICD9: 295.92] Diagnosis: DEMEN NOS W/O BEHV DSTRB[ICD9: 294.20] Loren Vitale MD, [facility] CPT-4: 08160 07/07/2012 ([id number]) 93162 EST. PATIENT, LEVEL IV Diagnosis: DEMEN NOS W/O BEHV DSTRB[ICD9: 294.20] Diagnosis: SCHIZO NOS, CHRN[ICD9: 295.92] Diagnosis: Vitamin B 12 deficiency[ICD9: 266.2] Loren Vitale MD, [facility] CPT- 4: 39011 01/07/2012 ([id number]) 02786 EST. PATIENT, LEVEL IV Diagnosis: DEMEN NOS W/O BEHV DSTRB[ICD9: 294.20] Diagnosis: ALTERED MENTAL STATUS[ICD9: 780.97] Diagnosis: Myalgia[ICD9: 729.1] Loren Vitale MD, [facility] CPT-4: 24980 12/17/2011 ([id number]) 03607 EST. PATIENT, LEVEL IV Diagnosis: Orthostatic hypotension[ICD9: 458.0] Diagnosis: Hypokalemia[ICD9: 276.8] Diagnosis: DEMEN NOS W/O BEHV DSTRB[ICD9: 294.20] Diagnosis: SCHIZO NOS, CHRN[ICD9: 295.92] Diagnosis: ALTERED MENTAL STATUS[ICD9: 780.97] [facility] CPT-4: 27660 12/10/2011 OFFICE/OUTPATIENT VISIT NEW Diagnosis: Schizophrenia, chronic condition[ICD9: 295.92] Diagnosis: Encounter for long-term (current) use of other high-risk medications[ICD9: V58.69] [facility] CPT-4: 73825 11/26/2011 Plan of Care Planned Activity Notes Codes Status Date Appointment: Injection 12/02/2016 Patient Education: Patient Medication [...] paperwork for health care surrogate. 10/11/2015 Appointment: [facility] - Annual Wellness Visit 10/11/2015 Patient Education: [...] check labs. 01/16/2015 Appointment: Loren Vitale WPtel: [facility] (15 min) Moderate 01/16/2015 Patient Education: Patient Medication Summary Completed 01/16/2015 Appointment: Injection 01/02/2015 Patient Education: Patient Medication Summary Completed 01/02/2015 Patient Education: Patient Medication Summary Completed 11/28/2014 Patient Education: Patient Medication Summary Completed 10/31/2014 Patient Education: Patient Medication Summary Completed 10/03/2014 Patient Education: Patient Medication Summary Completed 08/30/2014 Visit Plan: Svrg-rgpzsvxu-rllxplcubrbgs cream to affected area twice daily as directed- call if rash does not completely resolve B12 deficiency-B12 injection today in the office 08/02/2014 Appointment: [phone] [facility] 08/02/2014 Patient Education: Patient Medication Summary Completed 08/02/2014 Patient Education: Patient Medication Summary Completed 07/04/2014 Patient Education: Patient Medication Summary Completed 05/30/2014 Appointment: Loren Vitale WPtel: [facility] [place] Injection 05/02/2014 Patient Education: Patient Medication Summary Completed 05/02/2014 Patient Education: Patient Medication Summary Completed 04/05/2014 Appointment: [facility] [phone] [facility] [place] Injection 03/07/2014 Patient Education: Patient Medication Summary Completed 03/07/2014 [phone] [place] [facility] 02/01/2014 Patient Education: Patient Medication Summary Completed 02/01/2014 App[facility]ment[phone] [facility] [place] In[facility] 12/30/2013 Patient Education: Patient Medication Summary Completed 12/30/2013 App[facility]ment: [facility] [phone] [facility] [place] [facility] 11/30/2013 Patient Education: Patient Medication Summary Completed 11/30/2013 Appointment: [facility] [phone] [facility] [place] Injection 11/02/2013 Patient Education: Patient Medication Summary Completed 11/02/2013 App[facility]ment: [facility] [phone] [facility] [place] In[facility] 09/28/2013 Appointment: [facility] [phone] [facility] [place] [facility] 08/31/2013 Patient Education: Patient Medication Summary Completed 08/31/2013 Patient Education: Patient Medication Summary Completed 08/04/2013 Appointment: [facility] [phone] [facility] [place] Injection 08/03/2013 Appointment: [facility]Ptel[facility] [phone] [facility] [place] [facility] 07/06/2013 Patient Education: Patient [...] psychiatrist. 05/03/2013 Appointment: [facility]el[facility] [phone] [facility] [place] Other 05/03/2013 Patient Education: Patient [...] is to see Dr. Treviño at [facility].B 12 deficiency and folate deficiency - pt is to continue with IM injections for b12 deficiency. 03/02/2013 Appointment: [facility]Ptel[facility] [phone] [facility] [place] Follow up 03/02/2013 Patient Education: Patient Medication Summary Completed 03/02/2013 Appointment: [facility]Ptel[facility] [phone] [facility] [place] Injection 02/02/2013 Patient Education: Patient Medication Summary Completed 02/02/2013 Patient Education: Patient Medication Summary Completed 12/29/2012 Appointment: [facility]el[facility] [phone] [facility] [place] Injection 12/01/2012 Patient Education: Patient Medication Summary Completed 12/01/2012 Appointment: Loren Vitale WPtel: [phone] [facility] [place] Injection 11/03/2012 Patient Education: Patient Medication Summary Completed 11/03/2012 Visit Plan: Rash-discussed natural and expected course of this diagnosis and to alert me if symptoms do not follow expected course, or if any worse. RX sent to patient's pharmacy and instructed on use. B12 def-injection today in the office 09/30/2012 Appointment: [facility]Ptel[facility] [phone] [facility] [place] Other 09/30/2012 Patient Education: Patient Medication Summary Completed 09/30/2012 Patient Education: Patient Medication Summary Completed 09/08/2012 Appointment: [facility]el[facility] [phone] [facility] [place] Injection 08/25/2012 Patient Education: Patient Medication Summary Completed 08/25/2012 Appointment: [facility]el[facility] [phone] [facility] [place] Injection 08/11/2012 Patient Education: Patient Medication Summary Completed 08/11/2012 Appointment: [facility]el[facility] [phone] [facility] [place] Injection 07/21/2012 Patient Education: Patient [...] is to see Dr. Treviño at [facility].B 12 deficiency and folate deficiency - pt is to continue with IM injections for b12 deficiency. 07/07/2012 Appointment: [facility]el[facility] [phone] [facility] [place] Follow up 07/07/2012 Patient Education: Patient Medication Summary Completed 07/07/2012 Patient Education: Patient Medication Summary Completed 06/25/2012 Patient Education: Patient Medication Summary Completed 06/09/2012 Patient Education: Patient Medication Summary Completed 05/25/2012 Appointment: [facility]Ptel[facility] [phone] [facility] [place] Injection 05/12/2012 Patient Education: Patient Medication Summary Completed 05/12/2012 Patient Education: Patient Medication Summary Completed 04/20/2012 Appointment: Camille Devi WPtel: [phone] [facility] [place] Injection 04/07/2012 Patient Education: Patient Medication Summary Completed 04/07/2012 Appointment: [facility] Dev[facility]Ptel[facility] [phone] [facility] [place] Injection 03/24/2012 Appointment: [facility]Ptel[facility] [phone] [facility] [place] Injection 03/10/2012 Patient Education: Patient Medication Summary Completed 03/10/2012 Appointment: [facility]Ptel[facility] [phone] [facility] [place] Injection 02/18/2012 Patient Education: Patient Medication Summary Completed 02/18/2012 Appointment: [facility]el[facility] [phone] [facility] [place] Injection 02/04/2012 Patient Education: Patient Medication Summary Completed 02/04/2012 Appointment: [facility]Ptel[facility] [phone] [facility] [place] Injection 01/21/2012 Patient Education: Patient [...] at normal. 01/07/2012 Appointment: Loren Vitale WPtel: [phone] Other 01/07/2012 Patient Education: Patient Medication Summary [...] ahold of Juan's psychiatrist who is in [place], but he is apparently on vacation to the [facility] and may not respond until he gets back in December. I think that Juan's medications need adjusted and that is the largest part of his new symptoms. 12/17/2011 Appointment: Loren Vitale WPtel: [phone] [place] [phone] Other 12/17/2011 Patient Education: Patient Medication Summary [...] understanding. 11/26/2011 Appointment: [facility]Ptel[phone] [facility] New Patient 11/26/2011 Patient Education: Patient [...] is to see Dr. Treviño at [facility]. B 12 deficiency and folate deficiency - [...] ahold of Juan's psychiatrist who is in [place], but he is apparently on vacation to the [facility] and may not respond until he gets back in December. I think that Juan's medications need adjusted and that is the largest part of his new symptoms. . Gjej-bzquqhlr-oafdkomquqoap cream to affected area twice daily as [...] keep his B12 levels at normal. . Discussed with Rubén that Juan does [...] been made with his new psychiatrist. . Hypotension-discussed natural and expected course of [...] is to see Dr. Treviño at [facility]. B 12 deficiency and folate deficiency - [...] [employer] paperwork for health care surrogate. . Schizophrenia - continue with chronic home medications - the pt's anaframil, clonazepam, cogentin, rispherdone, stelazine. Depression - uncontrolled - recommended increase of Wellbutrin to 100mg at bedtime and 200mg in the morning. Leg pain - need to check labs.
[2018-12-22 15:49] LABS: BASOPHILS % (AUTO) 0 % (0-10); EOSINOPHILS % (AUTO) 0 % (0-10); HEMATOCRIT 42 % (40-54); HEMOGLOBIN 14.4 G/DL (13.3-17.7); LYMPHOCYTES # (AUTO) 0.6 X 10^3 (1.0-4.0); LYMPHOCYTES % (AUTO) 4 % (12-44); MEAN CORPUSCULAR HEMOGLOBIN 30 PG (25-34); MEAN CORPUSCULAR HGB CONC 34 G/DL (32-36); MEAN CORPUSCULAR VOLUME 88 FL (80-99); MEAN PLATELET VOLUME 8.9 FL (7.4-10.4); MONOCYTES # (AUTO) 1.4 X 10^3 (0.0-1.0); MONOCYTES % (AUTO) 9 % (0-12); NEUTROPHILS # (AUTO) 13.6 X 10^3 (1.8-7.8); NEUTROPHILS % (AUTO) 87 % (42-75); PLATELET COUNT 228 10^3/uL (130-400); RED CELL DISTRIBUTION WIDTH 12.4 % (10.0-14.5); WHITE BLOOD COUNT 15.6 10^3/uL (4.3-11.0)
--- OUTSIDE RECORDS SUMMARY | 2018-12-22 15:49 | XMS REPORT | CCD ---
Author Author Loren Vitale MD, [facility] Address [address] [place] [address] Phone Care Team Providers Care Manager Grant Name Role Phone PP Unavailable CCM Unavailable Summary Purpose Interface Exchange Insurance Providers Payer name Policy type / Coverage type Covered alliance party ID Effective Begin Date Effective End Date WPS Medicare Part B Medicare Part B [id number] 2013 Unknown [place] [employer] Medicare Part B [id number] Unknown Family history Sister Diagnosis Age At Onset No Family Disease Entered N/A First cousin Diagnosis Age At Onset No Family Disease Entered N/A Mother Diagnosis Age At Onset Dementia Unknown Social History Social History Element Codes Description Effective Dates Marital status Unknown Single 11/26/[address]: 74000253 Current every day smoker 2 packs daily 11/26/[address]: 415543088 Never drinks alcohol 11/26/2011 Has the patient [...] (vit B-12) 1,000 mcg/mL injection solution RxNorm: 180672 1 Milliliter(s) Inj 12/02/2016 12/02/2016 Inactive Wellbutrin SR 100 mg tablet,sustained-release RxNorm: 469767 TAKE ONE TABLET BY MOUTH EVERY NIGHT AT BEDTIME 10/30/2016 04/27/2017 Active cyanocobalamin (vit B-12) 1,000 mcg/mL injection solution RxNorm: 759420 Milliliter(s) Inj 10/29/2016 10/29/2016 Inactive cyanocobalamin (vit B-12) 1,000 mcg/mL injection solution RxNorm: 557025 1 Milliliter(s) Inj 10/01/2016 10/01/2016 Inactive cyanocobalamin (vit B-12) 1,000 mcg/mL injection solution RxNorm: 192401 Milliliter(s) Inj 09/02/2016 09/02/2016 Inactive cyanocobalamin (vit B-12) 1,000 mcg/mL injection solution RxNorm: 907396 Milliliter(s) Inj 08/05/2016 08/05/2016 Inactive cyanocobalamin (vit B-12) 1,000 mcg/mL injection solution RxNorm: 210416 1 Milliliter(s) Inj 07/02/2016 07/02/2016 Inactive cyanocobalamin (vit B-12) 1,000 mcg/mL injection solution RxNorm: 916520 Milliliter(s) Inj 06/03/2016 06/03/2016 Inactive cyanocobalamin (vit B-12) 1,000 mcg/mL injection solution RxNorm: 064360 Milliliter(s) Inj 2016 2016 Inactive Wellbutrin SR 100 mg tablet,sustained-release RxNorm: 837311 1 Tablet(s) PO QHS 04/01/2016 10/27/2016 Inactive cyanocobalamin (vit B-12) 1,000 mcg/mL injection solution RxNorm: 399498 Milliliter(s) Inj 04/01/2016 04/01/2016 Inactive cyanocobalamin (vit B-12) 1,000 mcg/mL injection solution RxNorm: 337959 1 Milliliter(s) Inj 03/05/2016 03/05/2016 Inactive cyanocobalamin (vit B-12) 1,000 mcg/mL injection solution RxNorm: 375252 Milliliter(s) Inj 01/29/2016 01/29/2016 Inactive cyanocobalamin (vit B-12) 1,000 mcg/mL injection solution RxNorm: 360971 Milliliter(s) Inj 01/02/2016 01/02/2016 Inactive mupirocin 2 % topical ointment RxNorm: 314067 1 Application TOP BID 12/04/2015 No Stop Date Active doxycycline hyclate 100 mg capsule RxNorm: 4316808 1 Capsule(s) PO BID 12/04/2015 12/13/2015 Inactive cyanocobalamin (vit B-12) 1,000 mcg/mL injection solution RxNorm: 050530 Milliliter(s) Inj 10/30/2015 10/30/2015 Inactive cyanocobalamin (B12)-cobamamide 5,000 mcg-100 mcg sublingual tablet RxNorm: 353374 Tablet(s) SL 10/02/2015 10/02/2015 Inactive Wellbutrin SR 100 mg tablet,sustained-release RxNorm: 863491 1 Tablet(s) PO QHS 09/08/2015 03/31/2016 Inactive cyanocobalamin (vit B-12) 1,000 mcg/mL injection solution RxNorm: 261535 Milliliter(s) Inj 08/29/2015 08/29/2015 Inactive cyanocobalamin (vit B-12) 1,000 mcg/mL injection solution RxNorm: 678959 Milliliter(s) Inj 07/31/2015 07/31/2015 Inactive cyanocobalamin (vit B-12) 1,000 mcg/mL injection solution RxNorm: 045252 Milliliter(s) Inj 06/05/2015 06/05/2015 Inactive cyanocobalamin (vit B-12) 1,000 mcg/mL injection solution RxNorm: 438624 Milliliter(s) Inj 05/01/2015 05/01/2015 Inactive cyanocobalamin (vit B-12) 1,000 mcg/mL injection solution RxNorm: 888295 Milliliter(s) Inj 04/03/2015 04/03/2015 Inactive cyanocobalamin (vit B-12) 1,000 mcg/mL injection solution RxNorm: 236515 Milliliter(s) Inj 02/28/2015 02/28/2015 Inactive cyanocobalamin (vit B-12) 1,000 mcg/mL injection solution RxNorm: 217814 Milliliter(s) Inj 01/30/2015 01/30/2015 Inactive Wellbutrin SR 100 mg tablet,sustained-release RxNorm: 309694 1 Tablet(s) PO QHS 01/16/2015 08/13/2015 Inactive cyanocobalamin (vit B-12) 1,000 mcg/mL injection solution RxNorm: 507019 1 Milliliter(s) Inj 01/02/2015 01/02/2015 Inactive cyanocobalamin (vit B-12) 1,000 mcg/mL injection solution RxNorm: 127981 1 Milliliter(s) Inj 11/28/2014 11/28/2014 Inactive cyanocobalamin (vit B-12) 1,000 mcg/mL injection solution RxNorm: 505231 Milliliter(s) Inj 10/31/2014 10/31/2014 Inactive [SAVINGS FOR NON-COVERED DRUGS -- BIN:[id number], PCN: [id number], Group: XXXXX, ID# [id number], Questions: . THIS IS NOT INSURANCE.] cyanocobalamin (vit B-12) 1,000 mcg/mL injection solution RxNorm: 792302 1 Milliliter(s) Inj daily 10/03/2014 10/03/2014 Inactive [SAVINGS FOR NON-COVERED DRUGS -- BIN:[id number], PCN: [id number], Group: XXXXX, ID# [id number], Questions: . THIS IS NOT INSURANCE.] cyanocobalamin (vit B-12) 1,000 mcg/mL injection solution RxNorm: 467990 Milliliter(s) Inj 08/30/2014 08/30/2014 Inactive [SAVINGS FOR NON-COVERED DRUGS -- BIN:890283, PCN: ASPROD1, Group: XXXXX, ID# [id number], Questions: . THIS IS NOT INSURANCE.] nystatin-triamcinolone 100,000 unit/g-0.1 % topical cream RxNorm: 4089851 1 Application TOP BID 08/02/2014 08/08/2014 Inactive [SAVINGS FOR UNINSURED PATIENTS -- BIN:791046, PCN: ASPROD1, Group: [id number], ID# [id number], Process claim through MedImpact, for questions: . THIS IS NOT INSURANCE.] cyanocobalamin (vit B-12) 1,000 mcg/mL injection solution RxNorm: 592693 Milliliter(s) Inj 08/02/2014 08/02/2014 Inactive [SAVINGS FOR UNINSURED PATIENTS -- BIN:701358, PCN: ASPROD1, Group: [id number], ID# [id number], Process claim through MedImpact, for questions: . THIS IS NOT INSURANCE.] cyanocobalamin (vit B-12) 1,000 mcg/mL injection kit RxNorm: 809065 Milliliter(s) Inj 07/04/2014 07/04/2014 Inactive [SAVINGS FOR UNINSURED PATIENTS -- BIN:897945, PCN: ASPROD1, Group: [id number], ID# [id number], Process claim through MedImpact, for questions: . THIS IS NOT INSURANCE.] cyanocobalamin (vit B-12) 1,000 mcg/mL injection solution RxNorm: 748570 Milliliter(s) Inj 05/30/2014 05/30/2014 Inactive cyanocobalamin (vit B-12) 1,000 mcg/mL injection solution RxNorm: 149504 Milliliter(s) Inj 05/02/2014 05/02/2014 Inactive cyanocobalamin (vit B-12) 1,000 mcg/mL injection solution RxNorm: 767940 Milliliter(s) Inj 04/05/2014 04/05/2014 Inactive cyanocobalamin (vit B-12) 1,000 mcg/mL injection solution RxNorm: 263262 Milliliter(s) Inj 03/07/2014 03/07/2014 Inactive cyanocobalamin (vit B-12) 1,000 mcg/mL injection solution RxNorm: 847170 1 Milliliter(s) Inj 02/01/2014 02/01/2014 Inactive cyanocobalamin (vit B-12) 1,000 mcg/mL injection solution RxNorm: 070727 1 Milliliter(s) Inj 12/30/2013 12/30/2013 Inactive [SAVINGS FOR UNINSURED PATIENTS -- BIN:489621, PCN: ASPROD1, Group: [id number], ID# [id number], Process claim through Appercode, for questions: . THIS IS NOT INSURANCE.] cyanocobalamin (vit B-12) 1,000 mcg/mL injection solution RxNorm: 708729 Milliliter(s) Inj 11/30/2013 11/30/2013 Inactive cyanocobalamin (vit B-12) 1,000 mcg/mL injection solution RxNorm: 367560 1 Milliliter(s) Inj 11/02/2013 11/02/2013 Inactive Vitamin B-12 1,000 mcg/mL injection solution RxNorm: 317952 Milliliter(s) Inj 08/31/2013 08/31/2013 Inactive Vitamin B-12 1,000 mcg/mL injection solution RxNorm: 133765 1 Milliliter(s) Inj 08/04/2013 08/04/2013 Inactive Vitamin B-12 1,000 mcg/mL injection solution RxNorm: 503837 Milliliter(s) Inj 07/06/2013 07/06/2013 Inactive cyanocobalamin (vit B-12) 1,000 mcg/mL injection solution RxNorm: 237240 Milliliter(s) Inj 05/31/2013 05/31/2013 Inactive cyanocobalamin (vit B-12) 1,000 mcg/mL injection kit RxNorm: 854931 Milliliter(s) Inj 05/04/2013 05/04/2013 Inactive cyanocobalamin (vitamin B-12) 1,000 mcg/mL Injection RxNorm: 728542 Milliliter(s) Inj 03/30/2013 03/30/2013 Inactive cyanocobalamin (vitamin B-12) 1,000 mcg/mL Injection RxNorm: 608172 Milliliter(s) Inj 02/02/2013 02/02/2013 Inactive cyanocobalamin (vitamin B-12) 1,000 mcg/mL Injection RxNorm: 861589 Milliliter(s) Inj 12/29/2012 12/29/2012 Inactive cyanocobalamin (vitamin B-12) 1,000 mcg/mL Injection RxNorm: 855189 Milliliter(s) Inj 12/01/2012 12/01/2012 Inactive Vitamin B-12 1,000 mcg tablet RxNorm: 536158 Tablet(s) PO 11/03/2012 11/03/2012 Inactive Vitamin B-12 1,000 mcg/mL Injection RxNorm: 759487 1 Milliliter(s) Inj 09/30/2012 09/30/2012 Inactive triamcinolone acetonide 0.1 % Topical Cream RxNorm: 0379324 1 Application TOP BID 09/30/2012 10/13/2012 Inactive Vitamin B-12 1,000 mcg/mL Injection RxNorm: 990815 1 Milliliter(s) Inj 09/08/2012 09/08/2012 Inactive cyanocobalamin (vitamin B-12) 1,000 mcg/mL Injection RxNorm: 767709 1 Milliliter(s) Inj 08/25/2012 08/25/2012 Inactive cyanocobalamin (vitamin B-12) 1,000 mcg/mL Injection RxNorm: 009638 1 Milliliter(s) Inj 08/11/2012 08/11/2012 Inactive cyanocobalamin (vitamin B-12) 1,000 mcg/mL Injection RxNorm: 078089 1 Milliliter(s) Inj 07/21/2012 07/21/2012 Inactive Vitamin B-12 1,000 mcg/mL Injection RxNorm: 548535 Milliliter(s) Inj 07/07/2012 07/07/2012 Inactive cyanocobalamin (vitamin B-12) 1,000 mcg/mL Injection RxNorm: 498940 1 Milliliter(s) Inj 06/25/2012 06/25/2012 Inactive Vitamin B-12 1,000 mcg/mL Injection RxNorm: 662881 1 Milliliter(s) Inj 06/09/2012 06/09/2012 Inactive Vitamin B-12 1,000 mcg/mL Injection RxNorm: 914805 Milliliter(s) Inj 05/25/2012 05/25/2012 Inactive Vitamin B-12 1,000 mcg/mL Injection RxNorm: 405034 Milliliter(s) Inj 05/12/2012 05/12/2012 Inactive Vitamin B-12 1,000 mcg/mL Injection RxNorm: 932381 Milliliter(s) Inj 04/20/2012 04/20/2012 Inactive Vitamin B-12 1,000 mcg/mL Injection RxNorm: 852722 Milliliter(s) Inj 04/07/2012 04/07/2012 Inactive Vitamin B-12 1,000 mcg/mL Injection RxNorm: 455282 Milliliter(s) Inj 03/10/2012 03/10/2012 Inactive Vitamin B-12 1,000 mcg/mL Injection RxNorm: 367356 Milliliter(s) Inj 02/18/2012 02/18/2012 Inactive Vitamin B-12 1,000 mcg/mL Injection RxNorm: 846923 Milliliter(s) Inj 02/04/2012 02/04/2012 Inactive Vitamin B-12 1,000 mcg/mL Injection RxNorm: 676289 Milliliter(s) Inj 01/21/2012 01/21/2012 Inactive Vitamin B-12 1,000 mcg/mL Injection RxNorm: 956581 Milliliter(s) Inj 01/07/2012 01/07/2012 Inactive Vitamin B-12 1,000 mcg/mL Injection RxNorm: 461389 Milliliter(s) Inj 12/17/2011 12/17/2011 Inactive KCL 10 meq RxNorm: 1 PO daily 12/12/2011 12/16/2011 Inactive Vitamin B-12 1,000 mcg/mL Injection RxNorm: 390299 1 Milliliter(s) Inj monthly No Start Date Active Wellbutrin SR 200 mg Tab RxNorm: 417175 1 Tablet(s) PO daily No Start Date Active Anafranil 25 mg Cap RxNorm: 494090 1 Capsule(s) PO daily No Start Date Active Stelazine 5 mg Tab RxNorm: 783647 1 Tablet(s) PO BID No Start Date Active clonazepam 1 mg Tab RxNorm: 902475 1 Tablet(s) PO BID No Start Date Active risperidone 3 mg Tab RxNorm: 216362 Tablet(s) PO No Start Date Active 2 on even days 3 on odd days Cogentin 1 mg Tab RxNorm: 268237 1 Tablet(s) PO TID No Start Date Active Medication Administered Medication Codes Instructions Start Date Status cyanocobalamin (vit B-12) 1,000 mcg/mL injection solution RxNorm: 322048 1Milliliter 12/02/2016 Active cyanocobalamin (vit B-12) 1,000 mcg/mL injection solution RxNorm: 772291 Milliliter 10/29/2016 No longer Active cyanocobalamin (vit B-12) 1,000 mcg/mL injection solution RxNorm: 437814 1Milliliter 10/01/2016 No longer Active cyanocobalamin (vit B-12) 1,000 mcg/mL injection solution RxNorm: 704415 Milliliter 09/02/2016 No longer Active cyanocobalamin (vit B-12) 1,000 mcg/mL injection solution RxNorm: 367145 Milliliter 08/05/2016 No longer Active cyanocobalamin (vit B-12) 1,000 mcg/mL injection solution RxNorm: 204840 1Milliliter 07/02/2016 No longer Active cyanocobalamin (vit B-12) 1,000 mcg/mL injection solution RxNorm: 959927 Milliliter 06/03/2016 No longer Active cyanocobalamin (vit B-12) 1,000 mcg/mL injection solution RxNorm: 195422 Milliliter 2016 No longer Active cyanocobalamin (vit B-12) 1,000 mcg/mL injection solution RxNorm: 686064 Milliliter 04/01/2016 No longer Active cyanocobalamin (vit B-12) 1,000 mcg/mL injection solution RxNorm: 586992 1Milliliter 03/05/2016 No longer Active cyanocobalamin (vit B-12) 1,000 mcg/mL injection solution RxNorm: 647876 Milliliter 01/29/2016 No longer Active cyanocobalamin (vit B-12) 1,000 mcg/mL injection solution RxNorm: 264461 Milliliter 01/02/2016 No longer Active cyanocobalamin (vit B-12) 1,000 mcg/mL injection solution RxNorm: 091870 Milliliter 10/30/2015 No longer Active cyanocobalamin (B12)-cobamamide 5,000 mcg-100 mcg sublingual tablet RxNorm: 602880 Tablet 10/02/2015 No longer Active cyanocobalamin (vit B-12) 1,000 mcg/mL injection solution RxNorm: 450257 Milliliter 08/29/2015 No longer Active cyanocobalamin (vit B-12) 1,000 mcg/mL injection solution RxNorm: 777504 Milliliter 07/31/2015 No longer Active cyanocobalamin (vit B-12) 1,000 mcg/mL injection solution RxNorm: 867376 Milliliter 06/05/2015 No longer Active cyanocobalamin (vit B-12) 1,000 mcg/mL injection solution RxNorm: 399280 Milliliter 05/01/2015 No longer Active cyanocobalamin (vit B-12) 1,000 mcg/mL injection solution RxNorm: 363916 Milliliter 04/03/2015 No longer Active cyanocobalamin (vit B-12) 1,000 mcg/mL injection solution RxNorm: 452139 Milliliter 02/28/2015 No longer Active cyanocobalamin (vit B-12) 1,000 mcg/mL injection solution RxNorm: 130625 Milliliter 01/30/2015 No longer Active cyanocobalamin (vit B-12) 1,000 mcg/mL injection solution RxNorm: 988594 1Milliliter 01/02/2015 No longer Active cyanocobalamin (vit B-12) 1,000 mcg/mL injection solution RxNorm: 824093 1Milliliter 11/28/2014 No longer Active cyanocobalamin (vit B-12) 1,000 mcg/mL injection solution RxNorm: 145724 Milliliter 10/31/2014 No longer Active cyanocobalamin (vit B-12) 1,000 mcg/mL injection solution RxNorm: 542536 1Milliliterdaily 10/03/2014 No longer Active cyanocobalamin (vit B-12) 1,000 mcg/mL injection solution RxNorm: 757007 Milliliter 08/30/2014 No longer Active cyanocobalamin (vit B-12) 1,000 mcg/mL injection solution RxNorm: 636894 Milliliter 08/02/2014 No longer Active cyanocobalamin (vit B-12) 1,000 mcg/mL injection kit RxNorm: 569078 Milliliter 07/04/2014 No longer Active cyanocobalamin (vit B-12) 1,000 mcg/mL injection solution RxNorm: 746751 Milliliter 05/30/2014 No longer Active cyanocobalamin (vit B-12) 1,000 mcg/mL injection solution RxNorm: 290426 Milliliter 05/02/2014 No longer Active cyanocobalamin (vit B-12) 1,000 mcg/mL injection solution RxNorm: 404102 Milliliter 04/05/2014 No longer Active cyanocobalamin (vit B-12) 1,000 mcg/mL injection solution RxNorm: 878916 Milliliter 03/07/2014 No longer Active cyanocobalamin (vit B-12) 1,000 mcg/mL injection solution RxNorm: 118699 1Milliliter 02/01/2014 No longer Active cyanocobalamin (vit B-12) 1,000 mcg/mL injection solution RxNorm: 910998 1Milliliter 12/30/2013 No longer Active cyanocobalamin (vit B-12) 1,000 mcg/mL injection solution RxNorm: 368493 Milliliter 11/30/2013 No longer Active cyanocobalamin (vit B-12) 1,000 mcg/mL injection solution RxNorm: 184792 1Milliliter 11/02/2013 No longer Active Vitamin B-12 1,000 mcg/mL injection solution RxNorm: 974235 Milliliter 08/31/2013 No longer Active Vitamin B-12 1,000 mcg/mL injection solution RxNorm: 998696 1Milliliter 08/04/2013 No longer Active Vitamin B-12 1,000 mcg/mL injection solution RxNorm: 373206 Milliliter 07/06/2013 No longer Active cyanocobalamin (vit B-12) 1,000 mcg/mL injection solution RxNorm: 775358 Milliliter 05/31/2013 No longer Active cyanocobalamin (vit B-12) 1,000 mcg/mL injection kit RxNorm: 802767 Milliliter 05/04/2013 No longer Active cyanocobalamin (vitamin B-12) 1,000 mcg/mL Injection RxNorm: 633350 Milliliter 03/30/2013 No longer Active cyanocobalamin (vitamin B-12) 1,000 mcg/mL Injection RxNorm: 136662 Milliliter 02/02/2013 No longer Active cyanocobalamin (vitamin B-12) 1,000 mcg/mL Injection RxNorm: 232759 Milliliter 12/29/2012 No longer Active cyanocobalamin (vitamin B-12) 1,000 mcg/mL Injection RxNorm: 434554 Milliliter 12/01/2012 No longer Active Vitamin B-12 1,000 mcg tablet RxNorm: 601565 Tablet 11/03/2012 No longer Active Vitamin B-12 1,000 mcg/mL Injection RxNorm: 888942 1Milliliter 09/30/2012 No longer Active Vitamin B-12 1,000 mcg/mL Injection RxNorm: 551305 1Milliliter 09/08/2012 No longer Active cyanocobalamin (vitamin B-12) 1,000 mcg/mL Injection RxNorm: 461103 1Milliliter 08/25/2012 No longer Active cyanocobalamin (vitamin B-12) 1,000 mcg/mL Injection RxNorm: 541337 1Milliliter 08/11/2012 No longer Active cyanocobalamin (vitamin B-12) 1,000 mcg/mL Injection RxNorm: 424115 1Milliliter 07/21/2012 No longer Active Vitamin B-12 1,000 mcg/mL Injection RxNorm: 182575 Milliliter 07/07/2012 No longer Active cyanocobalamin (vitamin B-12) 1,000 mcg/mL Injection RxNorm: 457514 1Milliliter 06/25/2012 No longer Active Vitamin B-12 1,000 mcg/mL Injection RxNorm: 443627 1Milliliter 06/09/2012 No longer Active Vitamin B-12 1,000 mcg/mL Injection RxNorm: 994429 Milliliter 05/25/2012 No longer Active Vitamin B-12 1,000 mcg/mL Injection RxNorm: 891213 Milliliter 05/12/2012 No longer Active Vitamin B-12 1,000 mcg/mL Injection RxNorm: 946379 Milliliter 04/20/2012 No longer Active Vitamin B-12 1,000 mcg/mL Injection RxNorm: 103727 Milliliter 04/07/2012 No longer Active Vitamin B-12 1,000 mcg/mL Injection RxNorm: 512456 Milliliter 03/10/2012 No longer Active Vitamin B-12 1,000 mcg/mL Injection RxNorm: 090740 Milliliter 02/18/2012 No longer Active Vitamin B-12 1,000 mcg/mL Injection RxNorm: 378861 Milliliter 02/04/2012 No longer Active Vitamin B-12 1,000 mcg/mL Injection RxNorm: 409446 Milliliter 01/21/2012 No longer Active Vitamin B-12 1,000 mcg/mL Injection RxNorm: 248741 Milliliter 01/07/2012 No longer Active Vitamin B-12 1,000 mcg/mL Injection RxNorm: 152792 Milliliter 12/17/2011 No longer Active Immunizations Vaccine [...] Code Item Item Code Result Date B12 [id number] B12 637.00 pg/ml 07/31/2015 FOLIC ACID 7355237 FOLIC ACID >24.0 NG/ML 08/25/2012 VIT B 12 6348488 VIT B 12 1591 PG/ML 08/25/2012 HOMOCYS 7086615 HOMOCYS 6.8 UMOL/L 08/25/2012 TSH 0260611 TSH 1.386 uIU/ML 07/07/2012 CBC 1695626 WBC 6.4 10e9/L 07/07/2012 CBC 0515226 RBC 4.92 10e12/L 07/07/2012 CBC 4493847 HGB 15.0 g/dL 07/07/2012 CBC 1569970 HCT DET 43.3 % 07/07/2012 CBC 4042033 MCV 88.0 fL 07/07/2012 CBC 5954590 MCH 30.5 pg 07/07/2012 CBC 4412376 MCHC 34.6 g/dL 07/07/2012 CBC 9738628 PLT 180 10e9/L 07/07/2012 CBC 9119910 MPV 10.0 fL 07/07/2012 CBC 4610650 KENRICK % 59.0 % 07/07/2012 CBC 6259499 LY % 24.1 % 07/07/2012 CBC 7138148 MON % 12.5 % 07/07/2012 CBC 8131722 EOS % 4.1 % 07/07/2012 CBC 9726410 BASO % 0.3 % 07/07/2012 CBC 9101588 RDW 13.4 % 07/07/2012 CBC 0202300 ABS KENRICK 3.78 10e9/L 07/07/2012 CBC 3812734 ABS LYMPH 1.54 10e9/L 07/07/2012 CBC 4764341 ABS MONO 0.80 10e9/L 07/07/2012 CBC 5940017 ABS EOS 0.26 10e9/L 07/07/2012 CBC 7980922 ABS BASO 0.02 10e9/L 07/07/2012 CBC 8814468 RDW-SD 42.9 fL 07/07/2012 CHEM 14 3805051 AST 29 U/L 07/07/2012 CHEM 14 1430866 ALT 29 U/L 07/07/2012 CHEM 14 6197578 BUN 9 MG/DL 07/07/2012 CHEM 14 1426158 ALBUMIN 4.1 GM/DL 07/07/2012 CHEM 14 5594582 CHLORIDE 103 MMOL/L 07/07/2012 CHEM 14 4889895 BILI TOT 0.3 MG/DL 07/07/2012 CHEM 14 0465369 ALK PHOS 88 U/L 07/07/2012 CHEM 14 9413014 SODIUM 141 MMOL/L 07/07/2012 CHEM 14 9978364 CREATININE 1.38 MG/DL 07/07/2012 CHEM 14 0409231 CALCIUM 9.3 MG/DL 07/07/2012 CHEM 14 0283343 POTASSIUM 3.7 MMOL/L 07/07/2012 CHEM 14 9250824 PROT TOT 6.4 GM/DL 07/07/2012 CHEM 14 7033268 GLUCOSE 76 MG/DL 07/07/2012 CHEM 14 4313639 BICARB 28 MMOL/L 07/07/2012 CHEM 14 2667298 ANION GAP 10 MMOL/L 07/07/2012 GFR CALC 5647061 GFR AA >60 ML/MIN 07/07/2012 GFR CALC 5358417 GFR NON-AA 52.0L ML/MIN 07/07/2012 B12 FOLAT 1290736 VIT B 12 211 PG/ML 12/10/2011 B12 FOLAT 5447181 FOLIC ACID 3.9 NG/ML 12/10/2011 GFR CALC 3953244 GFR AA >60 ML/MIN 12/10/2011 GFR CALC 7925881 GFR NON-AA >60 ML/MIN 12/10/2011 CPK 8483821 CPK 135 U/L 12/10/2011 CHEM 14 2927821 AST 62 U/L 12/10/2011 CHEM 14 1896540 ALT 114 U/L 12/10/2011 CHEM 14 8161008 BUN 10 MG/DL 12/10/2011 CHEM 14 3219321 ALBUMIN 3.7 GM/DL 12/10/2011 CHEM 14 5922465 CHLORIDE 103 MMOL/L 12/10/2011 CHEM 14 0932338 BILI TOT 0.5 MG/DL 12/10/2011 CHEM 14 0885442 ALK PHOS 129 U/L 12/10/2011 CHEM 14 0554641 SODIUM 140 MMOL/L 12/10/2011 CHEM 14 5844194 CREATININE 1.17 MG/DL 12/10/2011 CHEM 14 1403130 CALCIUM 8.8 MG/DL 12/10/2011 CHEM 14 0801236 POTASSIUM 3.4 MMOL/L 12/10/2011 CHEM 14 5005370 PROT TOT 5.8 GM/DL 12/10/2011 CHEM 14 6175247 GLUCOSE 84 MG/DL 12/10/2011 CHEM 14 6816101 BICARB 26 MMOL/L 12/10/2011 CHEM 14 8443590 ANION GAP 11 MMOL/L 12/10/2011 URINALYSIS NONAUTO W/O SCOPE 08824 Specific [place] 1.005 DateTime(Free Text in Aprima) URINALYSIS NONAUTO W/O SCOPE 19411 PH 6 DateTime(Free Text in Aprima) URINALYSIS NONAUTO W/O SCOPE 73951 GLUCOSE neg DateTime(Free Text in Aprima) URINALYSIS NONAUTO W/O SCOPE 07116 Protein neg DateTime(Free Text in Aprima) URINALYSIS NONAUTO W/O SCOPE 49527 Blood neg DateTime(Free Text in Aprima) URINALYSIS NONAUTO W/O SCOPE 07439 Bilirubin neg DateTime(Free Text in Aprima) URINALYSIS NONAUTO W/O SCOPE 60108 Ketones neg DateTime(Free Text in Aprima) URINALYSIS NONAUTO W/O SCOPE 09326 Urobilinogen neg DateTime(Free Text in Aprima) URINALYSIS NONAUTO W/O SCOPE 65342 Nitrite neg DateTime(Free Text in Aprima) URINALYSIS NONAUTO W/O SCOPE 25879 Leukocytes neg DateTime(Free Text in Aprima) URINALYSIS NONAUTO W/O SCOPE 08861 Specific [place] 1.010 DateTime(Free Text in Aprima) URINALYSIS NONAUTO W/O SCOPE 17646 PH 6.5 DateTime(Free Text in Aprima) URINALYSIS NONAUTO W/O SCOPE 40984 GLUCOSE neg DateTime(Free Text in Aprima) URINALYSIS NONAUTO W/O SCOPE 62195 Protein neg DateTime(Free Text in Aprima) URINALYSIS NONAUTO W/O SCOPE 42276 Blood neg DateTime(Free Text in Aprima) URINALYSIS NONAUTO W/O SCOPE 28858 Bilirubin neg DateTime(Free Text in Aprima) URINALYSIS NONAUTO W/O SCOPE 69286 Ketones neg DateTime(Free Text in Aprima) URINALYSIS NONAUTO W/O SCOPE 40080 Urobilinogen neg DateTime(Free Text in Aprima) URINALYSIS NONAUTO W/O SCOPE 75924 Nitrite neg DateTime(Free Text in Aprima) URINALYSIS NONAUTO W/O SCOPE 34699 Leukocytes neg DateTime(Free Text in Aprima) Review [...] recall three words at five minutes 01/16/2015 [facility] exam points Full Exam [...] recall three words at five minutes 03/02/2013 [facility] exam points Full Exam - Dermatology Constitutional [...] recall three words at five minutes 07/07/2012 [facility] [place] exam points Full Exam [...] recall three words at five minutes 01/07/2012 [facility] exam points Full Exam - General 1994 Constitutional general appearance Overall: well developed 12/17/2011 None Full Exam - General 1994 Constitutional general appearance Overall: in no acute distress 12/17/2011 None Full Exam - General 1995 Constitutional general appearance Overall: well nourished 12/17/2011 [...] recall three words at five minutes 12/17/2011 [facility] exam points Full Exam - General 1994 [...] recall three words at five minutes 12/10/2011 [facility] exam points Full Exam - General 1994 [...] recall three words at five minutes 11/26/2011 [facility] exam points Procedures Procedure Codes Date THER/PROPH/DIAG INJ SC/IM CPT-4: 90117Pcbmzwb 12/02/2016 VITAMIN B12 INJECTION CPT-4: Z3110Ciicusj 12/02/2016 THER/PROPH/DIAG INJ SC/IM CPT-4: 87473Xbbcupa 10/29/2016 VITAMIN B12 INJECTION CPT-4: J8349Osbrzzm 10/29/2016 THER/PROPH/DIAG INJ SC/IM CPT-4: 99195Xbtttnd 10/01/2016 VITAMIN B12 INJECTION CPT-4: U4694Eodpndl 10/01/2016 TOBACCO-USE CURATOR HORTICULTURAL MUSEUM 3-[address]: [id number] CPT-4: Q5121Nxtudhc 09/02/2016 VITAMIN B12 INJECTION CPT-4: T3644Qkbduzb 09/02/2016 THER/PROPH/DIAG INJ SC/IM CPT-4: 28626Ljfgmvs 09/02/2016 THER/PROPH/DIAG INJ SC/IM CPT-4: 07519Qkykxqt 08/05/2016 VITAMIN B12 INJECTION CPT-4: I1075Cvgpynk 08/05/2016 THER/PROPH/DIAG INJ SC/IM CPT-4: 09332Hcgzitm 07/02/2016 VITAMIN B12 INJECTION CPT-4: I8616Pmdkwsj 07/02/2016 VITAMIN B12 INJECTION CPT-4: O6211Ivptmey 06/03/2016 THER/PROPH/DIAG INJ SC/IM CPT-4: 16602Jdtxjtq 06/03/2016 THER/PROPH/DIAG INJ SC/IM CPT-4: 79771Ukefbdg 2016 VITAMIN B12 INJECTION CPT-4: Y6853Zhvzrdo 2016 THER/PROPH/DIAG INJ SC/IM CPT-4: 56342Udhnqwi 04/01/2016 VITAMIN B12 INJECTION CPT-4: T2640Vgwnbyr 04/01/2016 VITAMIN B12 INJECTION CPT-4: K1948Uvjjzbz 03/05/2016 THER/PROPH/DIAG INJ SC/IM CPT-4: 07595Synipna 03/05/2016 TOBACCO-USE CURATOR HORTICULTURAL MUSEUM 3-[address]: 295483829 CPT-4: H3486Ohmfppa 01/29/2016 THER/PROPH/DIAG INJ SC/IM CPT-4: 41395Jaadodv 01/29/2016 VITAMIN B12 INJECTION CPT-4: S6072Fldtcxv 01/29/2016 THER/PROPH/DIAG INJ SC/IM CPT-4: 63332Eqadzps 01/02/2016 VITAMIN B12 INJECTION CPT-4: M7767Dsdqxwt 01/02/2016 VITAMIN B12 INJECTION CPT-4: I5798Lugjhzc 12/04/2015 THER/PROPH/DIAG INJ SC/IM CPT-4: 65956Akzgeml 12/04/2015 THER/PROPH/DIAG INJ SC/IM CPT-4: 09196Hlhouyy 10/30/2015 VITAMIN B12 INJECTION CPT-4: N8656Gvvlvom 10/30/2015 PPPS, SUBSEQ VISIT CPT-4: X3623Cadpnlt 10/11/2015 TOBACCO-USE CURATOR HORTICULTURAL MUSEUM 3-[address]: 761311259 CPT-4: K6359Jzfbpdm 10/11/2015 TOBACCO-USE CURATOR HORTICULTURAL MUSEUM 3-[address]: 351857814 CPT-4: Y2399Bpqbsop 10/02/2015 THER/PROPH/DIAG INJ SC/IM CPT-4: 32266Lnleuuk 10/02/2015 VITAMIN B12 INJECTION CPT-4: W1509Ltlvzjv 10/02/2015 THER/PROPH/DIAG INJ SC/IM CPT-4: 77374Cizmsjw 08/29/2015 VITAMIN B12 INJECTION CPT-4: B8021Fwstkxt 08/29/2015 THER/PROPH/DIAG INJ SC/IM CPT-4: 60826Tzscgxq 07/31/2015 VITAMIN B12 INJECTION CPT-4: K3018Zwnmtwf 07/31/2015 THER/PROPH/DIAG INJ SC/IM CPT-4: 86558Lswgblb 07/03/2015 VITAMIN B12 INJECTION CPT-4: X9847Dypbcxe 07/03/2015 THER/PROPH/DIAG INJ SC/IM CPT-4: 72948Rylxdoh 06/05/2015 VITAMIN B12 INJECTION CPT-4: U0309Ccwiltr 06/05/2015 VITAMIN B12 INJECTION CPT-4: W0988Lvqoxye 05/01/2015 THER/PROPH/DIAG INJ SC/IM CPT-4: 17979Hblxyvs 05/01/2015 THER/PROPH/DIAG INJ SC/IM CPT-4: 25824Daijqcp 04/03/2015 VITAMIN B12 INJECTION CPT-4: W7269Ncoorqp 04/03/2015 THER/PROPH/DIAG INJ SC/IM CPT-4: 69951Pmpnvna 02/28/2015 VITAMIN B12 INJECTION CPT-4: P1718Galanvk 02/28/2015 THER/PROPH/DIAG INJ SC/IM CPT-4: 43604Qcxbwqh 01/30/2015 VITAMIN B12 INJECTION CPT-4: C0465Ogleqea 01/30/2015 VITAMIN B12 INJECTION CPT-4: F6668Bqwynku 01/02/2015 THER/PROPH/DIAG INJ SC/IM CPT-4: 33920Idrdond 01/02/2015 THER/PROPH/DIAG INJ SC/IM CPT-4: 44485Ajigkru 11/28/2014 VITAMIN B12 INJECTION CPT-4: K4012Hcbngum 11/28/2014 THER/PROPH/DIAG INJ SC/IM CPT-4: 40702Uvzzkaj 10/31/2014 VITAMIN B12 INJECTION CPT-4: E3064Rivhbir 10/31/2014 THER/PROPH/DIAG INJ SC/IM CPT-4: 87275Fwzonzi 10/03/2014 VITAMIN B12 INJECTION CPT-4: Q4360Etbzvfa 10/03/2014 THER/PROPH/DIAG INJ SC/IM CPT-4: 75770Vsjrchc 08/30/2014 VITAMIN B12 INJECTION CPT-4: F6925Xarldjz 08/30/2014 THER/PROPH/DIAG INJ SC/IM CPT-4: 20504Qxtvlxk 08/02/2014 VITAMIN B12 INJECTION CPT-4: E2768Jyvbxnd 08/02/2014 THER/PROPH/DIAG INJ SC/IM CPT-4: 98508Nutifqe 07/04/2014 VITAMIN B12 INJECTION CPT-4: L4963Cqrvwco 07/04/2014 THER/PROPH/DIAG INJ SC/IM CPT-4: 32785Xroskwa 05/30/2014 VITAMIN B12 INJECTION CPT-4: J8237Lfgnpvt 05/30/2014 THER/PROPH/DIAG INJ SC/IM CPT-4: 41296Yhzgssx 05/02/2014 VITAMIN B12 INJECTION CPT-4: H0947Afavafo 05/02/2014 THER/PROPH/DIAG INJ SC/IM CPT-4: 59574Gwpffih 04/05/2014 THER/PROPH/DIAG INJ SC/IM CPT-4: 65989Olbcopr 03/07/2014 VITAMIN B12 INJECTION CPT-4: T0865Zzqctnt 03/07/2014 THER/PROPH/DIAG INJ SC/IM CPT-4: 07579Amrpceh 02/01/2014 VITAMIN B12 INJECTION CPT-4: O2832Khofkfu 02/01/2014 VITAMIN B12 INJECTION CPT-4: Z0294Oczvexm 12/30/2013 THER/PROPH/DIAG INJ SC/IM CPT-4: 49241Tndaogm 12/30/2013 THER/PROPH/DIAG INJ SC/IM CPT-4: 72126Jvbaomh 11/30/2013 VITAMIN B12 INJECTION CPT-4: A6463Ngkrwdu 11/30/2013 THER/PROPH/DIAG INJ SC/IM CPT-4: 45405Qrblsse 11/02/2013 VITAMIN B12 INJECTION CPT-4: T8992Bkpslbo 11/02/2013 THER/PROPH/DIAG INJ SC/IM CPT-4: 62812Uanursr 08/31/2013 VITAMIN B12 INJECTION CPT-4: L3895Kpertsj 08/31/2013 THER/PROPH/DIAG INJ SC/IM CPT-4: 75387Ztdtgyb 08/04/2013 VITAMIN B12 INJECTION CPT-4: N8524Tphdzov 08/04/2013 VITAMIN B12 INJECTION CPT-4: Z2552Ufpzchy 07/06/2013 THER/PROPH/DIAG INJ SC/IM CPT-4: 35140Djifsix 07/06/2013 THER/PROPH/DIAG INJ SC/IM CPT-4: 24590Sbrsvyi 05/31/2013 VITAMIN B12 INJECTION CPT-4: S7125Proggwj 05/31/2013 ADMIN INFLUENZA VIRUS VAC CPT-4: E7817Fjskcdk 05/04/2013 FLULAVAL VACC, 3 YRS & >, IM CPT-4: N4245Lohpjub 05/04/2013 THER/PROPH/DIAG INJ SC/IM CPT-4: 83132Kttfvpe 05/04/2013 VITAMIN B12 INJECTION CPT-4: D1196Ltxcmff 05/04/2013 THER/PROPH/DIAG INJ SC/IM CPT-4: 38509Eavzwin 03/30/2013 VITAMIN B12 INJECTION CPT-4: E3413Zuwlkjq 03/30/2013 THER/PROPH/DIAG INJ SC/IM CPT-4: 11292Zyjzscp 03/02/2013 VITAMIN B12 INJECTION CPT-4: B3838Afzyycq 03/02/2013 [id number] EST. PATIENT, LEVEL IV CPT-4: 13666Hpawkxt 03/02/2013 THER/PROPH/DIAG INJ SC/IM CPT-4: 72407Dfniyqm 02/02/2013 VITAMIN B12 INJECTION CPT-4: B7431Astmrbf 02/02/2013 THER/PROPH/DIAG INJ SC/IM CPT-4: 56608Yewwgfl 12/29/2012 VITAMIN B12 INJECTION CPT-4: J1824Tqgysyr 12/29/2012 TRIAMCINOLONE ACET INJ NOS CPT-4: J8315Fcqwjxf 12/01/2012 VITAMIN B12 INJECTION CPT-4: T7226Nrhzlha 12/01/2012 VITAMIN B12 INJECTION CPT-4: F3046Wlhmryk 11/03/2012 THER/PROPH/DIAG INJ SC/IM CPT-4: 34533Kprstyv 11/03/2012 THER/PROPH/DIAG INJ SC/IM CPT-4: 67182Yashmmx 09/30/2012 VITAMIN B12 INJECTION CPT-4: D6484Vlryyij 09/30/2012 PRESCRIP TRANSMIT VIA ERX SY CPT-4: E2589Wmuagzn 09/30/2012 VITAMIN B12 INJECTION CPT-4: B3607Womudvl 09/08/2012 THER/PROPH/DIAG INJ SC/IM CPT-4: 95744Mpzpfpx 09/08/2012 THER/PROPH/DIAG INJ SC/IM CPT-4: 72571Dhejtsw 08/25/2012 ROUTINE VENIPUNCTURE CPT-4: 10194Vgazgvf 08/25/2012 VITAMIN B12 INJECTION CPT-4: T7317Bonyspv 08/25/2012 THER/PROPH/DIAG INJ SC/IM CPT-4: 81447Lvcluut 08/11/2012 VITAMIN B12 INJECTION CPT-4: B0865Jvzemlb 08/11/2012 VITAMIN B12 INJECTION CPT-4: Q3934Mugunbm 07/21/2012 THER/PROPH/DIAG INJ SC/IM CPT-4: 79874Ucmnovk 07/21/2012 THER/PROPH/DIAG INJ SC/IM CPT-4: 50165Gzogrra 07/07/2012 VITAMIN B12 INJECTION CPT-4: O3122Dzwosgg 07/07/2012 ROUTINE VENIPUNCTURE CPT-4: 67923Isuzxfg 07/07/2012 VITAMIN B12 INJECTION CPT-4: Y9484Wgaobtg 06/25/2012 THER/PROPH/DIAG INJ SC/IM CPT-4: 49845Lzgjtkv 06/25/2012 VITAMIN B12 INJECTION CPT-4: Z1406Nwxbdfk 06/09/2012 THER/PROPH/DIAG INJ SC/IM CPT-4: 02824Hboselm 06/09/2012 VITAMIN B12 INJECTION CPT-4: B1053Hhnwtqf 05/25/2012 THER/PROPH/DIAG INJ SC/IM CPT-4: 84578Aqytbwv 05/25/2012 VITAMIN B12 INJECTION CPT-4: Q2981Faftujn 05/12/2012 THER/PROPH/DIAG INJ SC/IM CPT-4: 08793Eutffzw 05/12/2012 VITAMIN B12 INJECTION CPT-4: K1409Vzzcuph 04/20/2012 THER/PROPH/DIAG INJ SC/IM CPT-4: 27250Umfzggn 04/20/2012 THER/PROPH/DIAG INJ SC/IM CPT-4: 19182Rywhzcp 04/07/2012 VITAMIN B12 INJECTION CPT-4: B6922Tdlqpao 04/07/2012 VITAMIN B12 INJECTION CPT-4: A4666Iprkowr 03/10/2012 THER/PROPH/DIAG INJ SC/IM CPT-4: 12024Aezpfgm 03/10/2012 VITAMIN B12 INJECTION CPT-4: Z8969Ogewgup 02/18/2012 THER/PROPH/DIAG INJ SC/IM CPT-4: 18152Awjyfvi 02/18/2012 THER/PROPH/DIAG INJ SC/IM CPT-4: 93350Aroetio 02/04/2012 VITAMIN B12 INJECTION CPT-4: H7407Tufrzpd 02/04/2012 THER/PROPH/DIAG INJ SC/IM CPT-4: 53905Eqhbruj 01/21/2012 VITAMIN B12 INJECTION CPT-4: F4282Xsgyktu 01/21/2012 VITAMIN B12 INJECTION CPT-4: E2013Focumnk 01/07/2012 VITAMIN B12 INJECTION CPT-4: M5229Jwjktwe 12/17/2011 URINALYSIS NONAUTO W/O SCOPE CPT-4: 02276Qvietkq 12/10/2011 ROUTINE VENIPUNCTURE CPT-4: 66241Rdiyapb 12/10/2011 URINALYSIS NONAUTO W/O SCOPE CPT-4: 94637Pgpewfx 11/26/2011 Vital Signs Date Vital 12/18/2015 Blood Pressure 1: 140/68 Code: 8480-6 BMI: 25.7 Code: 55478-3 Heart Rate 1: 83 bpm Height: 5'7" SpO2: 95% Weight: 164 lbs 10/11/2015 Blood Pressure 1: 128/80 Code: 8480-6 BMI: 26.0 Code: 15487-6 Heart Rate 1: 80 bpm Height: 5'7" SpO2: 97% Waist Measure (cm): 89 cm Weight: 166 lbs 01/16/2015 Blood Pressure 1: 122/84 Code: 8480-6 BMI: 25.7 Code: 89865-7 Heart Rate 1: 68 bpm Height: 5'7" SpO2: 95% Weight: 164 lbs 08/02/2014 Blood Pressure 1: 140/86 Code: 8480-6 BMI: 25.1 Code: 85893-8 Heart Rate 1: 64 bpm Height: 5'7" Weight: 160 lbs 03/02/2013 Blood Pressure 1: 108/74 Code: 8480-6 BMI: 28.3 Code: 38708-4 Heart Rate 1: 80 bpm Height: 5'7" Weight: 181 lbs 09/30/2012 Blood Pressure 1: 126/74 Code: 8480-6 Heart Rate 1: 64 bpm Weight: 07/07/2012 Blood Pressure 1: 130/84 Code: 8480-6 BMI: 26.6 Code: 45705-2 Heart Rate 1: 80 bpm Height: 5'7" [...] 1: 110/68 Code: 8480-6 BMI: 25.7 Code: 41787-2 Heart Rate 1: 68 bpm Height: 5'7" [...] than malignant neoplasm[ICD10: Z09] Susan Vitale MD, [facility] CPT-4: 86468 12/18/2015 [id number] EST. PATIENT, LEVEL IV Diagnosis: Cellulitis of right lower limb[ICD10: L03.115] Diagnosis: Vitamin B12 deficiency anemia due to intrinsic factor deficiency[ICD10: D51.0] Loren Vitale MD, [facility] CPT-4: 38551 12/04/2015 ([id number]) Miscellaneous no charge Diagnosis: Vitamin B deficiency, unspecified[ICD10: E53.9] Loren Vitale MD, [facility] CPT-4: 36812 07/31/2015 ([id number]) 28851 EST. PATIENT, LEVEL IV Diagnosis: Schizophrenia[ICD9: 295.90] Diagnosis: DEPRESSIVE DISORDER NEC[ICD9: 311] Diagnosis: Medication dose changed[ICD9: V58.69] Diagnosis: Leg pain[ICD9: 729.5] [facility] CPT-4: 69328 01/16/2015 ([id number]) 68319 EST. PATIENT, LEVEL III Diagnosis: Rash[ICD9: 782.1] Camille Vitale MD, [facility] CPT-4: 43516 08/02/2014 ([id number]) Miscellaneous no charge Diagnosis: SCHIZO NOS, CHRN[ICD9: 295.92] Loren Vitale MD, [facility] CPT-4: 83647 05/03/2013 ([id number]) 24011 EST. PATIENT, LEVEL III Diagnosis: Rash[ICD9: 782.1] Diagnosis: B-COMPLEX DEFIC NEC[ICD9: 266.2] Loren Vitale MD, [facility] CPT-4: 51435 09/30/2012 ([id number]) 36874 EST. PATIENT, LEVEL IV Diagnosis: SCHIZO NOS, CHRN[ICD9: 295.92] Diagnosis: DEMEN NOS W/O BEHV DSTRB[ICD9: 294.20] Loren Vitale MD, [facility] CPT-4: 81113 07/07/2012 ([id number]) 47656 EST. PATIENT, LEVEL IV Diagnosis: DEMEN NOS W/O BEHV DSTRB[ICD9: 294.20] Diagnosis: SCHIZO NOS, CHRN[ICD9: 295.92] Diagnosis: Vitamin B 12 deficiency[ICD9: 266.2] Loren Vitale MD, [facility] CPT- 4: 72049 01/07/2012 ([id number]) 45250 EST. PATIENT, LEVEL IV Diagnosis: DEMEN NOS W/O BEHV DSTRB[ICD9: 294.20] Diagnosis: ALTERED MENTAL STATUS[ICD9: 780.97] Diagnosis: Myalgia[ICD9: 729.1] Loren Vitale MD, [facility] CPT-4: 52281 12/17/2011 ([id number]) 16607 EST. PATIENT, LEVEL IV Diagnosis: Orthostatic hypotension[ICD9: 458.0] Diagnosis: Hypokalemia[ICD9: 276.8] Diagnosis: DEMEN NOS W/O BEHV DSTRB[ICD9: 294.20] Diagnosis: SCHIZO NOS, CHRN[ICD9: 295.92] Diagnosis: ALTERED MENTAL STATUS[ICD9: 780.97] Camille Vitale MD, [facility] CPT-4: 71752 12/10/2011 OFFICE/OUTPATIENT VISIT NEW Diagnosis: Schizophrenia, chronic condition[ICD9: 295.92] Diagnosis: Encounter for long-term (current) use of other high-risk medications[ICD9: V58.69] Loren Vitale MD, [facility] CPT-4: 56917 11/26/2011 Plan of Care Planned Activity Notes Codes Status Date Patient Education: Patient Medication Summary Completed 12/02/2016 [...] pain. 12/18/2015 Appointment: [facility] [phone] [phone] (30 min) Complex 12/18/2015 Patient Education: Patient [...] pain. 12/04/2015 Appointment: [facility]udd [facility] [phone] [facility] (10 min) Simple 12/04/2015 Patient Education: Patient [...] paperwork for health care surrogate. 10/11/2015 Appointment: [facility] - Annual Wellness Visit 10/11/2015 [...] Appointment: [facility] (15 min) Moderate 01/16/2015 Patient Education: Patient Medication Summary Completed 01/16/2015 Appointment: Injection 01/02/2015 Patient Education: Patient Medication Summary Completed 01/02/2015 Patient Education: Patient Medication Summary Completed 11/28/2014 Patient Education: Patient Medication Summary Completed 10/31/2014 Patient Education: Patient Medication Summary Completed 10/03/2014 Patient Education: Patient Medication Summary Completed 08/30/2014 Visit Plan: Ggqt-kgwdkgmm-inongcjlxvdqy cream to affected area twice daily as directed- call if rash does not completely resolve B12 deficiency-B12 injection today in the office 08/02/2014 Appointment: Cam[facility] Dev[facility] [phone] [phone] [place] Sick 08/02/2014 Patient Education: Patient Medication Summary Completed 08/02/2014 Patient Education: Patient Medication Summary Completed 07/04/2014 Patient Education: Patient Medication Summary Completed 05/30/2014 Appointment: [facility] [phone] [facility] [place] Injection 05/02/2014 Patient Education: Patient Medication Summary Completed 05/02/2014 Patient Education: Patient Medication Summary Completed 04/05/2014 Appointment: Cam[facility] Dev[facility] [phone] [phone] [place] Injection 03/07/2014 Patient Education: Patient Medication Summary Completed 03/07/2014 Appointment: [facility] [phone] [facility] [place] Injection 02/01/2014 Patient Education: Patient Medication Summary Completed 02/01/2014 Appointment: [facility] [phone] [facility] [place] Injection 12/30/2013 Patient Education: Patient Medication Summary Completed 12/30/2013 Appointment: [facility]el: [phone] [facility] [place] Injection 11/30/2013 Patient Education: Patient Medication Summary Completed 11/30/2013 Appointment: Camille Dev[facility] [phone] [phone] [place] Injection 11/02/2013 Patient Education: Patient Medication Summary Completed 11/02/2013 Appointment: [facility] [phone] [facility] [place] Injection 09/28/2013 Appointment: [facility] [phone] [facility] [place] Injection 08/31/2013 Patient Education: Patient Medication Summary Completed 08/31/2013 Patient Education: Patient Medication Summary Completed 08/04/2013 Appointment: Loren [facility]el: [phone] [facility] [place] Injection 08/03/2013 Appointment: Loren [facility]el: [phone] [facility] [place] Injection 07/06/2013 Patient Education: Patient Medication Summary Completed 07/06/2013 Appointment: Camille Devi [facility]Ptel: [phone] [phone] [place] Injection 05/31/2013 Patient Education: Patient Medication Summary Completed 05/31/2013 Appointment: Camille Devi [facility]Ptel: [phone] [phone] [place] Injection 05/04/2013 Patient Education: Patient Medication [...] psychiatrist. 05/03/2013 Appointment: Loren [facility]el: [phone] [facility] [place] Other 05/03/2013 Patient Education: Patient Medication Summary Completed 05/03/2013 Appointment: Cam[facility] Devi [facility]el[facility] [phone] [phone] [place] Injection 03/30/2013 Patient Education: Patient Medication [...] He is to see Dr. Treviño at [facility].B 12 deficiency and folate deficiency - pt is to continue with IM injections for b12 deficiency. 03/02/2013 Appointment: Loren [facility]el[facility] [phone] [facility] Follow up 03/02/2013 Patient Education: Patient Medication Summary Completed 03/02/2013 Appointment: Loren [facility]el: [phone] [facility] [place] Injection 02/02/2013 Patient Education: Patient Medication Summary Completed 02/02/2013 Patient Education: Patient Medication Summary Completed 12/29/2012 Appointment: Camille Dev[facility]el: [phone] [phone] [place] Injection 12/01/2012 Patient Education: Patient Medication Summary Completed 12/01/2012 Appointment: Loren Vit[facility]el: [phone] [facility] [place] Injection 11/03/2012 Patient Education: Patient Medication Summary Completed 11/03/2012 Visit Plan: Rash-discussed natural and expected course of this diagnosis and to alert me if symptoms do not follow expected course, or if any worse. RX sent to patient's pharmacy and instructed on use. B12 def-injection today in the office 09/30/2012 Appointment: Loren Vit[facility]el: [phone] [facility] [place] Other 09/30/2012 Patient Education: Patient Medication Summary Completed 09/30/2012 Patient Education: Patient Medication Summary Completed 09/08/2012 Appointment: Camille Devi [facility]el: [phone] [phone] [place] Injection 08/25/2012 Patient Education: Patient Medication Summary Completed 08/25/2012 Appointment: Loren Vit[facility]el: [phone] [facility] [place] Injection 08/11/2012 Patient Education: Patient Medication Summary Completed 08/11/2012 Appointment: Loren [facility]el: [phone] [facility] [place] Injection 07/21/2012 Patient Education: Patient [...] He is to see Dr. Treviño at [facility].B 12 deficiency and folate deficiency - pt is to continue with IM injections for b12 deficiency. 07/07/2012 Appointment: Loren Vit[facility]el: [phone] [facility] [place] Follow up 07/07/2012 Patient Education: Patient Medication Summary Completed 07/07/2012 Patient Education: Patient Medication Summary Completed 06/25/2012 Patient Education: Patient Medication Summary Completed 06/09/2012 Patient Education: Patient Medication Summary Completed 05/25/2012 Appointment: Loren [facility]el: [phone] [facility] [place] Injection 05/12/2012 Patient Education: Patient Medication Summary Completed 05/12/2012 Patient Education: Patient Medication Summary Completed 04/20/2012 Appointment: Cam[facility] Dev[facility]el: [phone] [phone] [place] Injection 04/07/2012 Patient Education: Patient Medication Summary Completed 04/07/2012 Appointment: Camille Devi [facility]Ptel: [phone] [phone] [place] Injection 03/24/2012 Appointment: Camille Devi [facility]Ptel: [phone] [phone] [place] Injection 03/10/2012 Patient Education: Patient Medication Summary Completed 03/10/2012 Appointment: Loren Vit[facility]el: [phone] [facility] [place] Injection 02/18/2012 Patient Education: Patient Medication Summary Completed 02/18/2012 Appointment: [facility]el: [phone] [facility] [place] Injection 02/04/2012 Patient Education: Patient Medication Summary Completed 02/04/2012 Appointment: [facility]el: [phone] [facility] [place] Injection 01/21/2012 Patient Education: Patient [...] at normal. 01/07/2012 Appointment: Loren Vitale WPtel: [phone] Other 01/07/2012 Patient Education: Patient Medication [...] ahold of Juan's psychiatrist who is in [place], but he is apparently on vacation to the [facility] and may not respond until he gets back in December. I think that Juan's medications need adjusted and that is the largest part of his new symptoms. 12/17/2011 Appointment: Loren Vitale WPtel: [phone] [facility] Other 12/17/2011 Patient Education: Patient Medication Summary [...] about assistance. 12/10/2011 Appointment: Camille Devi WPtel: [phone] Work-in 12/10/2011 Patient Education: Patient Medication Summary [...] expressed understanding. 11/26/2011 Appointment: Loren Vitale WPtel: [facility] New Patient 11/26/2011 Patient Education: Patient [...] He is to see Dr. Treviño at [facility]. B 12 deficiency and folate deficiency - [...] ahold of Juan's psychiatrist who is in [place], but he is apparently on vacation to the [facility] and may not respond until he gets back in December. I think that Juan's medications need adjusted and that is the largest part of his new symptoms. . Okzc-zjgesgqx-avhltfougfdhs cream to affected area twice daily as [...] He is to see Dr. Treviño at [facility]. B 12 deficiency and folate deficiency - [...]
--- OUTSIDE RECORDS SUMMARY | 2018-12-22 15:53 | XMS REPORT | CCD ---
Author Author Loren Vitale MD, [facility] Address [address] [place] [address] Phone Care Team Providers Care Virtual Assistant For Advertisers Name Role Phone PP Unavailable CCM Unavailable Summary Purpose Interface Exchange Insurance Providers Payer name Policy type / Coverage type Covered alliance party ID Effective Begin Date Effective End Date WPS Medicare Part B Medicare Part B [id number] Unknown [place] [employer] Medicare Part B [id number] Unknown Family history Sister Diagnosis Age At Onset No Family Disease Entered N/A First cousin Diagnosis Age At Onset No Family Disease Entered N/A Mother Diagnosis Age At Onset Dementia Unknown Social History Social History Element Codes Description Effective Dates Marital status Unknown Single 11/26/[address]: 06283553 Current every day smoker 2 packs daily 11/26/[address]: 823657108 Never drinks alcohol 11/26/2011 Has the patient ever used illegal drugs? Unknown Has never used illegal drugs 11/26/2011 Allergies, Adverse Reactions, Alerts Substance Reaction Codes Entered Date Inactivated Date Status * NO KNOWN FOOD ALLERGIES Unknown 11/26/2011 No Inactive Date Active * NO KNOWN DRUG ALLERGIES Unknown 11/26/2011 No Inactive Date Active Past Medical History Illness Codes Condition Status Onset Date Resolved Date Other vitamin B12 deficiency anemias ICD-9: 281.1 ICD-10: D51.8 Active 06/02/2016 Unknown Vitamin B12 deficiency anemia, unspecified ICD-9: 281.1 ICD-10: D51.9 Active 2015 Unknown Vitamin B12 deficiency anemia due to [...] Problems Condition Codes Effective Dates Condition Status Other vitamin B12 deficiency anemias ICD-9: 281.1 ICD-10: D51.8 06/02/2016 Active Vitamin B12 deficiency anemia, unspecified ICD-9: 281.1 ICD-10: D51.9 2015 Active Vitamin B12 deficiency anemia due to [...] (vit B-12) 1,000 mcg/mL injection solution RxNorm: 137260 Milliliter(s) Inj 09/28/2018 09/28/2018 Inactive Wellbutrin SR 100 mg tablet, 12 hr sustained-release RxNorm: 292969 Tablet(s) TAKE ONE TABLET BY MOUTH EVERY NIGHT AT BEDTIME 09/07/2018 03/05/2019 Active cyanocobalamin (vit B-12) 1,000 mcg/mL injection solution RxNorm: 411573 Milliliter(s) Inj 08/28/2018 08/28/2018 Inactive cyanocobalamin (vit B-12) 1,000 mcg/mL injection solution RxNorm: 197379 Milliliter(s) Inj 07/31/2018 07/31/2018 Inactive cyanocobalamin (vit B-12) 1,000 mcg/mL injection solution RxNorm: 522417 Milliliter(s) Inj 07/01/2018 07/01/2018 Inactive cyanocobalamin (vit B-12) 1,000 mcg/mL injection solution RxNorm: 567388 Milliliter(s) Inj 2018 2018 Inactive Wellbutrin SR 100 mg tablet, 12 hr sustained-release RxNorm: 954000 TAKE ONE TABLET BY MOUTH EVERY NIGHT AT BEDTIME 04/28/2018 10/23/2018 Active cyanocobalamin (vit B-12) 1,000 mcg/mL injection solution RxNorm: 193466 Milliliter(s) Inj 03/30/2018 03/30/2018 Inactive cyanocobalamin (vit B-12) 1,000 mcg/mL injection solution RxNorm: 981820 1 Milliliter(s) Inj 03/03/2018 03/03/2018 Inactive cyanocobalamin (vit B-12) 1,000 mcg/mL injection solution RxNorm: 522397 1 Milliliter(s) Inj 01/28/2018 01/28/2018 Inactive cyanocobalamin (vit B-12) 1,000 mcg/mL injection solution RxNorm: 005026 Milliliter(s) Inj 12/29/2017 12/29/2017 Inactive cyanocobalamin (vit B-12) 1,000 mcg/mL injection solution RxNorm: 604615 1 Milliliter(s) Inj 12/01/2017 12/01/2017 Inactive Wellbutrin SR 100 mg tablet, 12 hr sustained-release RxNorm: 226180 TAKE ONE TABLET BY MOUTH EVERY NIGHT AT BEDTIME 10/28/2017 04/25/2018 Inactive cyanocobalamin (vit B-12) 1,000 mcg/mL injection solution RxNorm: 759207 1 Milliliter(s) Inj 10/28/2017 10/28/2017 Inactive cyanocobalamin (vit B-12) 1,000 mcg/mL injection solution RxNorm: 009465 Milliliter(s) Inj 09/29/2017 09/29/2017 Inactive cyanocobalamin (vit B-12) 1,000 mcg/mL injection solution RxNorm: 507378 Milliliter(s) Inj 09/02/2017 09/02/2017 Inactive cyanocobalamin (vit B-12) 1,000 mcg/mL injection solution RxNorm: 583826 Milliliter(s) Inj 08/04/2017 08/04/2017 Inactive cyanocobalamin (vit B-12) 1,000 mcg/mL injection solution RxNorm: 367387 1 Milliliter(s) Inj 07/01/2017 07/01/2017 Inactive cyanocobalamin (vit B-12) 1,000 mcg/mL injection solution RxNorm: 700368 Milliliter(s) Inj 05/30/2017 05/30/2017 Inactive cyanocobalamin (vit B-12) 1,000 mcg/mL injection solution RxNorm: 527485 1 Milliliter(s) Inj 2017 2017 Inactive Wellbutrin SR 100 mg tablet, 12 hr sustained-release RxNorm: 301311 TAKE ONE TABLET BY MOUTH EVERY NIGHT AT BEDTIME 04/23/2017 10/19/2017 Inactive cyanocobalamin (vit B-12) 1,000 mcg/mL injection solution RxNorm: 891264 Milliliter(s) Inj 03/31/2017 03/31/2017 Inactive cyanocobalamin (vit B-12) 1,000 mcg/mL injection solution RxNorm: 144721 Milliliter(s) Inj 02/28/2017 02/28/2017 Inactive cyanocobalamin (vit B-12) 1,000 mcg/mL injection solution RxNorm: 091098 Milliliter(s) Inj 02/03/2017 02/03/2017 Inactive cyanocobalamin (vit B-12) 1,000 mcg/mL injection solution RxNorm: 277305 1 Milliliter(s) Inj 12/30/2016 12/30/2016 Inactive cyanocobalamin (vit B-12) 1,000 mcg/mL injection solution RxNorm: 676521 1 Milliliter(s) Inj 12/02/2016 12/02/2016 Inactive Wellbutrin SR 100 mg tablet, 12 hr sustained-release RxNorm: 416370 TAKE ONE TABLET BY MOUTH EVERY NIGHT AT BEDTIME 10/30/2016 04/22/2017 Inactive cyanocobalamin (vit B-12) 1,000 mcg/mL injection solution RxNorm: 641492 Milliliter(s) Inj 10/29/2016 10/29/2016 Inactive cyanocobalamin (vit B-12) 1,000 mcg/mL injection solution RxNorm: 021092 1 Milliliter(s) Inj 10/01/2016 10/01/2016 Inactive cyanocobalamin (vit B-12) 1,000 mcg/mL injection solution RxNorm: 454350 Milliliter(s) Inj 09/02/2016 09/02/2016 Inactive cyanocobalamin (vit B-12) 1,000 mcg/mL injection solution RxNorm: 736528 Milliliter(s) Inj 08/05/2016 08/05/2016 Inactive cyanocobalamin (vit B-12) 1,000 mcg/mL injection solution RxNorm: 838648 1 Milliliter(s) Inj 07/02/2016 07/02/2016 Inactive cyanocobalamin (vit B-12) 1,000 mcg/mL injection solution RxNorm: 903358 Milliliter(s) Inj 06/03/2016 06/03/2016 Inactive cyanocobalamin (vit B-12) 1,000 mcg/mL injection solution RxNorm: 745745 Milliliter(s) Inj 2016 2016 Inactive Wellbutrin SR 100 mg tablet,sustained-release RxNorm: 231244 1 Tablet(s) PO QHS 04/01/2016 10/27/2016 Inactive cyanocobalamin (vit B-12) 1,000 mcg/mL injection solution RxNorm: 992481 Milliliter(s) Inj 04/01/2016 04/01/2016 Inactive cyanocobalamin (vit B-12) 1,000 mcg/mL injection solution RxNorm: 802171 1 Milliliter(s) Inj 03/05/2016 03/05/2016 Inactive cyanocobalamin (vit B-12) 1,000 mcg/mL injection solution RxNorm: 517463 Milliliter(s) Inj 01/29/2016 01/29/2016 Inactive cyanocobalamin (vit B-12) 1,000 mcg/mL injection solution RxNorm: 847300 Milliliter(s) Inj 01/02/2016 01/02/2016 Inactive mupirocin 2 % topical ointment RxNorm: 966592 1 Application TOP BID 12/04/2015 No Stop Date Active doxycycline hyclate 100 mg capsule RxNorm: 6676505 1 Capsule(s) PO BID 12/04/2015 12/13/2015 Inactive cyanocobalamin (vit B-12) 1,000 mcg/mL injection solution RxNorm: 891591 Milliliter(s) Inj 10/30/2015 10/30/2015 Inactive cyanocobalamin (B12)-cobamamide 5,000 mcg-100 mcg sublingual tablet RxNorm: 312120 Tablet(s) SL 10/02/2015 10/02/2015 Inactive Wellbutrin SR 100 mg tablet,sustained-release RxNorm: 156395 1 Tablet(s) PO QHS 09/08/2015 03/31/2016 Inactive cyanocobalamin (vit B-12) 1,000 mcg/mL injection solution RxNorm: 437493 Milliliter(s) Inj 08/29/2015 08/29/2015 Inactive cyanocobalamin (vit B-12) 1,000 mcg/mL injection solution RxNorm: 879633 Milliliter(s) Inj 07/31/2015 07/31/2015 Inactive cyanocobalamin (vit B-12) 1,000 mcg/mL injection solution RxNorm: 131838 Milliliter(s) Inj 06/05/2015 06/05/2015 Inactive cyanocobalamin (vit B-12) 1,000 mcg/mL injection solution RxNorm: 504203 Milliliter(s) Inj 05/01/2015 05/01/2015 Inactive cyanocobalamin (vit B-12) 1,000 mcg/mL injection solution RxNorm: 313615 Milliliter(s) Inj 04/03/2015 04/03/2015 Inactive cyanocobalamin (vit B-12) 1,000 mcg/mL injection solution RxNorm: 110914 Milliliter(s) Inj 02/28/2015 02/28/2015 Inactive cyanocobalamin (vit B-12) 1,000 mcg/mL injection solution RxNorm: 390315 Milliliter(s) Inj 01/30/2015 01/30/2015 Inactive Wellbutrin SR 100 mg tablet,sustained-release RxNorm: 717632 1 Tablet(s) PO QHS 01/16/2015 08/13/2015 Inactive cyanocobalamin (vit B-12) 1,000 mcg/mL injection solution RxNorm: 674028 1 Milliliter(s) Inj 01/02/2015 01/02/2015 Inactive cyanocobalamin (vit B-12) 1,000 mcg/mL injection solution RxNorm: 193531 1 Milliliter(s) Inj 11/28/2014 11/28/2014 Inactive cyanocobalamin (vit B-12) 1,000 mcg/mL injection solution RxNorm: 200414 Milliliter(s) Inj 10/31/2014 10/31/2014 Inactive [SAVINGS FOR NON-COVERED DRUGS -- BIN:[id number], PCN: [id number], Group: XXXXX, ID# [id number], Questions: . THIS IS NOT INSURANCE.] cyanocobalamin (vit B-12) 1,000 mcg/mL injection solution RxNorm: 002326 1 Milliliter(s) Inj daily 10/03/2014 10/03/2014 Inactive [SAVINGS FOR NON-COVERED DRUGS -- BIN:070102, PCN: [id number], Group: XXXXX, ID# [id number], Questions: . THIS IS NOT INSURANCE.] cyanocobalamin (vit B-12) 1,000 mcg/mL injection solution RxNorm: 164537 Milliliter(s) Inj 08/30/2014 08/30/2014 Inactive [SAVINGS FOR NON-COVERED DRUGS -- BIN:647905, PCN: ASPROD1, Group: XXXXX, ID# [id number], Questions: . THIS IS NOT INSURANCE.] nystatin-triamcinolone 100,000 unit/g-0.1 % topical cream RxNorm: 6240749 1 Application TOP BID 08/02/2014 08/08/2014 Inactive [SAVINGS FOR UNINSURED PATIENTS -- BIN:673179, PCN: ASPROD1, Group: [id number], ID# [id number], Process claim through [employer], for questions: . THIS IS NOT INSURANCE.] cyanocobalamin (vit B-12) 1,000 mcg/mL injection solution RxNorm: 939215 Milliliter(s) Inj 08/02/2014 08/02/2014 Inactive [SAVINGS FOR UNINSURED PATIENTS -- BIN:736832, PCN: ASPROD1, Group: [id number], ID# [id number], Process claim through [employer], for questions: . THIS IS NOT INSURANCE.] cyanocobalamin (vit B-12) 1,000 mcg/mL injection kit RxNorm: 640573 Milliliter(s) Inj 07/04/2014 07/04/2014 Inactive [SAVINGS FOR UNINSURED PATIENTS -- BIN:800407, PCN: ASPROD1, Group: [id number], ID# [id number], Process claim through [employer], for questions: . THIS IS NOT INSURANCE.] cyanocobalamin (vit B-12) 1,000 mcg/mL injection solution RxNorm: 423069 Milliliter(s) Inj 05/30/2014 05/30/2014 Inactive cyanocobalamin (vit B-12) 1,000 mcg/mL injection solution RxNorm: 132446 Milliliter(s) Inj 05/02/2014 05/02/2014 Inactive cyanocobalamin (vit B-12) 1,000 mcg/mL injection solution RxNorm: 970121 Milliliter(s) Inj 04/05/2014 04/05/2014 Inactive cyanocobalamin (vit B-12) 1,000 mcg/mL injection solution RxNorm: 984005 Milliliter(s) Inj 03/07/2014 03/07/2014 Inactive cyanocobalamin (vit B-12) 1,000 mcg/mL injection solution RxNorm: 385434 1 Milliliter(s) Inj 02/01/2014 02/01/2014 Inactive cyanocobalamin (vit B-12) 1,000 mcg/mL injection solution RxNorm: 224910 1 Milliliter(s) Inj 12/30/2013 12/30/2013 Inactive [SAVINGS FOR UNINSURED PATIENTS -- BIN:342983, PCN: ASPROD1, Group: [id number], ID# [id number], Process claim through [employer], for questions: . THIS IS NOT INSURANCE.] cyanocobalamin (vit B-12) 1,000 mcg/mL injection solution RxNorm: 020943 Milliliter(s) Inj 11/30/2013 11/30/2013 Inactive cyanocobalamin (vit B-12) 1,000 mcg/mL injection solution RxNorm: 108281 1 Milliliter(s) Inj 11/02/2013 11/02/2013 Inactive Vitamin B-12 1,000 mcg/mL injection solution RxNorm: 783725 Milliliter(s) Inj 08/31/2013 08/31/2013 Inactive Vitamin B-12 1,000 mcg/mL injection solution RxNorm: 273540 1 Milliliter(s) Inj 08/04/2013 08/04/2013 Inactive Vitamin B-12 1,000 mcg/mL injection solution RxNorm: 856675 Milliliter(s) Inj 07/06/2013 07/06/2013 Inactive cyanocobalamin (vit B-12) 1,000 mcg/mL injection solution RxNorm: 758581 Milliliter(s) Inj 05/31/2013 05/31/2013 Inactive cyanocobalamin (vit B-12) 1,000 mcg/mL injection kit RxNorm: 188229 Milliliter(s) Inj 05/04/2013 05/04/2013 Inactive cyanocobalamin (vitamin B-12) 1,000 mcg/mL Injection RxNorm: 833225 Milliliter(s) Inj 03/30/2013 03/30/2013 Inactive cyanocobalamin (vitamin B-12) 1,000 mcg/mL Injection RxNorm: 152622 Milliliter(s) Inj 02/02/2013 02/02/2013 Inactive cyanocobalamin (vitamin B-12) 1,000 mcg/mL Injection RxNorm: 712586 Milliliter(s) Inj 12/29/2012 12/29/2012 Inactive cyanocobalamin (vitamin B-12) 1,000 mcg/mL Injection RxNorm: 225317 Milliliter(s) Inj 12/01/2012 12/01/2012 Inactive Vitamin B-12 1,000 mcg tablet RxNorm: 893959 Tablet(s) PO 11/03/2012 11/03/2012 Inactive Vitamin B-12 1,000 mcg/mL Injection RxNorm: 153983 1 Milliliter(s) Inj 09/30/2012 09/30/2012 Inactive triamcinolone acetonide 0.1 % Topical Cream RxNorm: 4982476 1 Application TOP BID 09/30/2012 10/13/2012 Inactive Vitamin B-12 1,000 mcg/mL Injection RxNorm: 592819 1 Milliliter(s) Inj 09/08/2012 09/08/2012 Inactive cyanocobalamin (vitamin B-12) 1,000 mcg/mL Injection RxNorm: 282055 1 Milliliter(s) Inj 08/25/2012 08/25/2012 Inactive cyanocobalamin (vitamin B-12) 1,000 mcg/mL Injection RxNorm: 746240 1 Milliliter(s) Inj 08/11/2012 08/11/2012 Inactive cyanocobalamin (vitamin B-12) 1,000 mcg/mL Injection RxNorm: 978033 1 Milliliter(s) Inj 07/21/2012 07/21/2012 Inactive Vitamin B-12 1,000 mcg/mL Injection RxNorm: 614973 Milliliter(s) Inj 07/07/2012 07/07/2012 Inactive cyanocobalamin (vitamin B-12) 1,000 mcg/mL Injection RxNorm: 879756 1 Milliliter(s) Inj 06/25/2012 06/25/2012 Inactive Vitamin B-12 1,000 mcg/mL Injection RxNorm: 882078 1 Milliliter(s) Inj 06/09/2012 06/09/2012 Inactive Vitamin B-12 1,000 mcg/mL Injection RxNorm: 760733 Milliliter(s) Inj 05/25/2012 05/25/2012 Inactive Vitamin B-12 1,000 mcg/mL Injection RxNorm: 275497 Milliliter(s) Inj 05/12/2012 05/12/2012 Inactive Vitamin B-12 1,000 mcg/mL Injection RxNorm: 107025 Milliliter(s) Inj 04/20/2012 04/20/2012 Inactive Vitamin B-12 1,000 mcg/mL Injection RxNorm: 239586 Milliliter(s) Inj 04/07/2012 04/07/2012 Inactive Vitamin B-12 1,000 mcg/mL Injection RxNorm: 051719 Milliliter(s) Inj 03/10/2012 03/10/2012 Inactive Vitamin B-12 1,000 mcg/mL Injection RxNorm: 006859 Milliliter(s) Inj 02/18/2012 02/18/2012 Inactive Vitamin B-12 1,000 mcg/mL Injection RxNorm: 156409 Milliliter(s) Inj 02/04/2012 02/04/2012 Inactive Vitamin B-12 1,000 mcg/mL Injection RxNorm: 646098 Milliliter(s) Inj 01/21/2012 01/21/2012 Inactive Vitamin B-12 1,000 mcg/mL Injection RxNorm: 919010 Milliliter(s) Inj 01/07/2012 01/07/2012 Inactive Vitamin B-12 1,000 mcg/mL Injection RxNorm: 349258 Milliliter(s) Inj 12/17/2011 12/17/2011 Inactive KCL 10 meq RxNorm: 1 PO daily 12/12/2011 12/16/2011 Inactive Vitamin B-12 1,000 mcg/mL Injection RxNorm: 801940 1 Milliliter(s) Inj monthly No Start Date Active Wellbutrin SR 200 mg Tab RxNorm: 634164 1 Tablet(s) PO daily No Start Date Active Anafranil 25 mg Cap RxNorm: 797206 1 Capsule(s) PO daily No Start Date Active Stelazine 5 mg Tab RxNorm: 246171 1 Tablet(s) PO BID No Start Date Active clonazepam 1 mg Tab RxNorm: 524045 1 Tablet(s) PO BID No Start Date Active risperidone 3 mg Tab RxNorm: 130098 Tablet(s) PO No Start Date Active 2 on even days 3 on odd days Cogentin 1 mg Tab RxNorm: 608085 1 Tablet(s) PO TID No Start Date Active Medication Administered Medication Codes Instructions Start Date Status cyanocobalamin (vit B-12) 1,000 mcg/mL injection solution RxNorm: 157532 Milliliter 09/28/2018 Active cyanocobalamin (vit B-12) 1,000 mcg/mL injection solution RxNorm: 080389 Milliliter 08/28/2018 No longer Active cyanocobalamin (vit B-12) 1,000 mcg/mL injection solution RxNorm: 487047 Milliliter 07/31/2018 No longer Active cyanocobalamin (vit B-12) 1,000 mcg/mL injection solution RxNorm: 990408 Milliliter 07/01/2018 No longer Active cyanocobalamin (vit B-12) 1,000 mcg/mL injection solution RxNorm: 473436 Milliliter 2018 No longer Active cyanocobalamin (vit B-12) 1,000 mcg/mL injection solution RxNorm: 733841 Milliliter 03/30/2018 No longer Active cyanocobalamin (vit B-12) 1,000 mcg/mL injection solution RxNorm: 125020 1Milliliter 03/03/2018 No longer Active cyanocobalamin (vit B-12) 1,000 mcg/mL injection solution RxNorm: 604628 1Milliliter 01/28/2018 No longer Active cyanocobalamin (vit B-12) 1,000 mcg/mL injection solution RxNorm: 180522 Milliliter 12/29/2017 No longer Active cyanocobalamin (vit B-12) 1,000 mcg/mL injection solution RxNorm: 293380 1Milliliter 12/01/2017 No longer Active cyanocobalamin (vit B-12) 1,000 mcg/mL injection solution RxNorm: 994300 1Milliliter 10/28/2017 No longer Active cyanocobalamin (vit B-12) 1,000 mcg/mL injection solution RxNorm: 455582 Milliliter 09/29/2017 No longer Active cyanocobalamin (vit B-12) 1,000 mcg/mL injection solution RxNorm: 826571 Milliliter 09/02/2017 No longer Active cyanocobalamin (vit B-12) 1,000 mcg/mL injection solution RxNorm: 145578 Milliliter 08/04/2017 No longer Active cyanocobalamin (vit B-12) 1,000 mcg/mL injection solution RxNorm: 983657 1Milliliter 07/01/2017 No longer Active cyanocobalamin (vit B-12) 1,000 mcg/mL injection solution RxNorm: 403502 Milliliter 05/30/2017 No longer Active cyanocobalamin (vit B-12) 1,000 mcg/mL injection solution RxNorm: 796110 1Milliliter 2017 No longer Active cyanocobalamin (vit B-12) 1,000 mcg/mL injection solution RxNorm: 014565 Milliliter 03/31/2017 No longer Active cyanocobalamin (vit B-12) 1,000 mcg/mL injection solution RxNorm: 390845 Milliliter 02/28/2017 No longer Active cyanocobalamin (vit B-12) 1,000 mcg/mL injection solution RxNorm: 780637 Milliliter 02/03/2017 No longer Active cyanocobalamin (vit B-12) 1,000 mcg/mL injection solution RxNorm: 433762 1Milliliter 12/30/2016 No longer Active cyanocobalamin (vit B-12) 1,000 mcg/mL injection solution RxNorm: 664757 1Milliliter 12/02/2016 No longer Active cyanocobalamin (vit B-12) 1,000 mcg/mL injection solution RxNorm: 425364 Milliliter 10/29/2016 No longer Active cyanocobalamin (vit B-12) 1,000 mcg/mL injection solution RxNorm: 022160 1Milliliter 10/01/2016 No longer Active cyanocobalamin (vit B-12) 1,000 mcg/mL injection solution RxNorm: 291825 Milliliter 09/02/2016 No longer Active cyanocobalamin (vit B-12) 1,000 mcg/mL injection solution RxNorm: 679592 Milliliter 08/05/2016 No longer Active cyanocobalamin (vit B-12) 1,000 mcg/mL injection solution RxNorm: 524595 1Milliliter 07/02/2016 No longer Active cyanocobalamin (vit B-12) 1,000 mcg/mL injection solution RxNorm: 313976 Milliliter 06/03/2016 No longer Active cyanocobalamin (vit B-12) 1,000 mcg/mL injection solution RxNorm: 385615 Milliliter 2016 No longer Active cyanocobalamin (vit B-12) 1,000 mcg/mL injection solution RxNorm: 554832 Milliliter 04/01/2016 No longer Active cyanocobalamin (vit B-12) 1,000 mcg/mL injection solution RxNorm: 852567 1Milliliter 03/05/2016 No longer Active cyanocobalamin (vit B-12) 1,000 mcg/mL injection solution RxNorm: 406130 Milliliter 01/29/2016 No longer Active cyanocobalamin (vit B-12) 1,000 mcg/mL injection solution RxNorm: 264335 Milliliter 01/02/2016 No longer Active cyanocobalamin (vit B-12) 1,000 mcg/mL injection solution RxNorm: 707545 Milliliter 10/30/2015 No longer Active cyanocobalamin (B12)-cobamamide 5,000 mcg-100 mcg sublingual tablet RxNorm: 726101 Tablet 10/02/2015 No longer Active cyanocobalamin (vit B-12) 1,000 mcg/mL injection solution RxNorm: 659272 Milliliter 08/29/2015 No longer Active cyanocobalamin (vit B-12) 1,000 mcg/mL injection solution RxNorm: 509235 Milliliter 07/31/2015 No longer Active cyanocobalamin (vit B-12) 1,000 mcg/mL injection solution RxNorm: 955188 Milliliter 06/05/2015 No longer Active cyanocobalamin (vit B-12) 1,000 mcg/mL injection solution RxNorm: 976665 Milliliter 05/01/2015 No longer Active cyanocobalamin (vit B-12) 1,000 mcg/mL injection solution RxNorm: 181708 Milliliter 04/03/2015 No longer Active cyanocobalamin (vit B-12) 1,000 mcg/mL injection solution RxNorm: 420612 Milliliter 02/28/2015 No longer Active cyanocobalamin (vit B-12) 1,000 mcg/mL injection solution RxNorm: 337952 Milliliter 01/30/2015 No longer Active cyanocobalamin (vit B-12) 1,000 mcg/mL injection solution RxNorm: 202264 1Milliliter 01/02/2015 No longer Active cyanocobalamin (vit B-12) 1,000 mcg/mL injection solution RxNorm: 660371 1Milliliter 11/28/2014 No longer Active cyanocobalamin (vit B-12) 1,000 mcg/mL injection solution RxNorm: 819027 Milliliter 10/31/2014 No longer Active cyanocobalamin (vit B-12) 1,000 mcg/mL injection solution RxNorm: 247019 1Milliliterdaily 10/03/2014 No longer Active cyanocobalamin (vit B-12) 1,000 mcg/mL injection solution RxNorm: 866444 Milliliter 08/30/2014 No longer Active cyanocobalamin (vit B-12) 1,000 mcg/mL injection solution RxNorm: 044307 Milliliter 08/02/2014 No longer Active cyanocobalamin (vit B-12) 1,000 mcg/mL injection kit RxNorm: 657299 Milliliter 07/04/2014 No longer Active cyanocobalamin (vit B-12) 1,000 mcg/mL injection solution RxNorm: 981134 Milliliter 05/30/2014 No longer Active cyanocobalamin (vit B-12) 1,000 mcg/mL injection solution RxNorm: 349623 Milliliter 05/02/2014 No longer Active cyanocobalamin (vit B-12) 1,000 mcg/mL injection solution RxNorm: 164084 Milliliter 04/05/2014 No longer Active cyanocobalamin (vit B-12) 1,000 mcg/mL injection solution RxNorm: 193058 Milliliter 03/07/2014 No longer Active cyanocobalamin (vit B-12) 1,000 mcg/mL injection solution RxNorm: 657836 1Milliliter 02/01/2014 No longer Active cyanocobalamin (vit B-12) 1,000 mcg/mL injection solution RxNorm: 239421 1Milliliter 12/30/2013 No longer Active cyanocobalamin (vit B-12) 1,000 mcg/mL injection solution RxNorm: 505582 Milliliter 11/30/2013 No longer Active cyanocobalamin (vit B-12) 1,000 mcg/mL injection solution RxNorm: 181606 1Milliliter 11/02/2013 No longer Active Vitamin B-12 1,000 mcg/mL injection solution RxNorm: 936345 Milliliter 08/31/2013 No longer Active Vitamin B-12 1,000 mcg/mL injection solution RxNorm: 259730 1Milliliter 08/04/2013 No longer Active Vitamin B-12 1,000 mcg/mL injection solution RxNorm: 399940 Milliliter 07/06/2013 No longer Active cyanocobalamin (vit B-12) 1,000 mcg/mL injection solution RxNorm: 097888 Milliliter 05/31/2013 No longer Active cyanocobalamin (vit B-12) 1,000 mcg/mL injection kit RxNorm: 056585 Milliliter 05/04/2013 No longer Active cyanocobalamin (vitamin B-12) 1,000 mcg/mL Injection RxNorm: 563711 Milliliter 03/30/2013 No longer Active cyanocobalamin (vitamin B-12) 1,000 mcg/mL Injection RxNorm: 274981 Milliliter 02/02/2013 No longer Active cyanocobalamin (vitamin B-12) 1,000 mcg/mL Injection RxNorm: 371306 Milliliter 12/29/2012 No longer Active cyanocobalamin (vitamin B-12) 1,000 mcg/mL Injection RxNorm: 804938 Milliliter 12/01/2012 No longer Active Vitamin B-12 1,000 mcg tablet RxNorm: 648547 Tablet 11/03/2012 No longer Active Vitamin B-12 1,000 mcg/mL Injection RxNorm: 486767 1Milliliter 09/30/2012 No longer Active Vitamin B-12 1,000 mcg/mL Injection RxNorm: 919015 1Milliliter 09/08/2012 No longer Active cyanocobalamin (vitamin B-12) 1,000 mcg/mL Injection RxNorm: 346308 1Milliliter 08/25/2012 No longer Active cyanocobalamin (vitamin B-12) 1,000 mcg/mL Injection RxNorm: 724458 1Milliliter 08/11/2012 No longer Active cyanocobalamin (vitamin B-12) 1,000 mcg/mL Injection RxNorm: 108154 1Milliliter 07/21/2012 No longer Active Vitamin B-12 1,000 mcg/mL Injection RxNorm: 831346 Milliliter 07/07/2012 No longer Active cyanocobalamin (vitamin B-12) 1,000 mcg/mL Injection RxNorm: 861919 1Milliliter 06/25/2012 No longer Active Vitamin B-12 1,000 mcg/mL Injection RxNorm: 059514 1Milliliter 06/09/2012 No longer Active Vitamin B-12 1,000 mcg/mL Injection RxNorm: 344180 Milliliter 05/25/2012 No longer Active Vitamin B-12 1,000 mcg/mL Injection RxNorm: 204713 Milliliter 05/12/2012 No longer Active Vitamin B-12 1,000 mcg/mL Injection RxNorm: 151256 Milliliter 04/20/2012 No longer Active Vitamin B-12 1,000 mcg/mL Injection RxNorm: 395882 Milliliter 04/07/2012 No longer Active Vitamin B-12 1,000 mcg/mL Injection RxNorm: 873761 Milliliter 03/10/2012 No longer Active Vitamin B-12 1,000 mcg/mL Injection RxNorm: 579434 Milliliter 02/18/2012 No longer Active Vitamin B-12 1,000 mcg/mL Injection RxNorm: 346308 Milliliter 02/04/2012 No longer Active Vitamin B-12 1,000 mcg/mL Injection RxNorm: 167861 Milliliter 01/21/2012 No longer Active Vitamin B-12 1,000 mcg/mL Injection RxNorm: 305702 Milliliter 01/07/2012 No longer Active Vitamin B-12 1,000 mcg/mL Injection RxNorm: 468939 Milliliter 12/17/2011 No longer Active Immunizations Vaccine Codes Date Status Influenza CVX: 141 2018 completed Influenza CVX: 141 2017 completed Influenza CVX: 141 05/01/2016 completed Pneumococcal CVX: 33 11/21/2015 completed PPD Unknown 07/31/2015 completed Influenza CVX: 141 05/04/2013 completed PPD Unknown 05/03/2013 completed Pneumococcal CVX: 33 11/04/2012 completed Tetanus/Diptheria CVX: 28 11/04/2012 completed Assessments Condition Codes Effective Dates Other vitamin B12 deficiency anemias ICD-10: D51.8 ICD-9: 281.1 09/28/2018 Vitamin B12 deficiency anemia, unspecified ICD-10: D51.9 ICD-9: 281.1 08/28/2018 Vitamin B12 deficiency anemia due to intrinsic [...] Code Item Item Code Result Date B12 Nah412 B12 637.00 pg/ml 07/31/2015 FOLIC ACID 1829327 FOLIC ACID >24.0 NG/ML 08/25/2012 VIT B 12 0926833 VIT B 12 1591 PG/ML 08/25/2012 HOMOCYS 9054099 HOMOCYS 6.8 UMOL/L 08/25/2012 TSH 7791255 TSH 1.386 uIU/ML 07/07/2012 CBC 3132124 WBC 6.4 10e9/L 07/07/2012 CBC 2291965 RBC 4.92 10e12/L 07/07/2012 CBC 5972091 HGB 15.0 g/dL 07/07/2012 CBC 4786963 HCT DET 43.3 % 07/07/2012 CBC 7454282 MCV 88.0 fL 07/07/2012 CBC 0276726 MCH 30.5 pg 07/07/2012 CBC 0339974 MCHC 34.6 g/dL 07/07/2012 CBC 8466981 PLT 180 10e9/L 07/07/2012 CBC 8770750 MPV 10.0 fL 07/07/2012 CBC 4041271 KENRICK % 59.0 % 07/07/2012 CBC 4843149 LY % 24.1 % 07/07/2012 CBC 5811444 MON % 12.5 % 07/07/2012 CBC 1851395 EOS % 4.1 % 07/07/2012 CBC 8599733 BASO % 0.3 % 07/07/2012 CBC 1580233 RDW 13.4 % 07/07/2012 CBC 6290289 ABS KENRICK 3.78 10e9/L 07/07/2012 CBC 7839826 ABS LYMPH 1.54 10e9/L 07/07/2012 CBC 5886718 ABS MONO 0.80 10e9/L 07/07/2012 CBC 8566085 ABS EOS 0.26 10e9/L 07/07/2012 CBC 7935022 ABS BASO 0.02 10e9/L 07/07/2012 CBC 2922070 RDW-SD 42.9 fL 07/07/2012 CHEM 14 2757390 AST 29 U/L 07/07/2012 CHEM 14 0672680 ALT 29 U/L 07/07/2012 CHEM 14 6921645 BUN 9 MG/DL 07/07/2012 CHEM 14 1893351 ALBUMIN 4.1 GM/DL 07/07/2012 CHEM 14 8294026 CHLORIDE 103 MMOL/L 07/07/2012 CHEM 14 8401738 BILI TOT 0.3 MG/DL 07/07/2012 CHEM 14 4620683 ALK PHOS 88 U/L 07/07/2012 CHEM 14 8984083 SODIUM 141 MMOL/L 07/07/2012 CHEM 14 7146913 CREATININE 1.38 MG/DL 07/07/2012 CHEM 14 6271617 CALCIUM 9.3 MG/DL 07/07/2012 CHEM 14 5219153 POTASSIUM 3.7 MMOL/L 07/07/2012 CHEM 14 3104882 PROT TOT 6.4 GM/DL 07/07/2012 CHEM 14 6540172 GLUCOSE 76 MG/DL 07/07/2012 CHEM 14 6332637 BICARB 28 MMOL/L 07/07/2012 CHEM 14 8824902 ANION GAP 10 MMOL/L 07/07/2012 GFR CALC 4345933 GFR AA >60 ML/MIN 07/07/2012 GFR CALC 5559094 GFR NON-AA 52.0L ML/MIN 07/07/2012 B12 FOLAT 5458666 VIT B 12 211 PG/ML 12/10/2011 B12 FOLAT 4687132 FOLIC ACID 3.9 NG/ML 12/10/2011 GFR CALC 6624555 GFR AA >60 ML/MIN 12/10/2011 GFR CALC 8387597 GFR NON-AA >60 ML/MIN 12/10/2011 CPK 2965929 CPK 135 U/L 12/10/2011 CHEM 14 4294902 AST 62 U/L 12/10/2011 CHEM 14 5568328 ALT 114 U/L 12/10/2011 CHEM 14 2318451 BUN 10 MG/DL 12/10/2011 CHEM 14 1267341 ALBUMIN 3.7 GM/DL 12/10/2011 CHEM 14 5907214 CHLORIDE 103 MMOL/L 12/10/2011 CHEM 14 5551435 BILI TOT 0.5 MG/DL 12/10/2011 CHEM 14 7709662 ALK PHOS 129 U/L 12/10/2011 CHEM 14 8502449 SODIUM 140 MMOL/L 12/10/2011 CHEM 14 2130362 CREATININE 1.17 MG/DL 12/10/2011 CHEM 14 4674731 CALCIUM 8.8 MG/DL 12/10/2011 CHEM 14 7879771 POTASSIUM 3.4 MMOL/L 12/10/2011 CHEM 14 1649650 PROT TOT 5.8 GM/DL 12/10/2011 CHEM 14 0405777 GLUCOSE 84 MG/DL 12/10/2011 CHEM 14 6644250 BICARB 26 MMOL/L 12/10/2011 CHEM 14 3626020 ANION GAP 11 MMOL/L 12/10/2011 URINALYSIS NONAUTO W/O SCOPE 32139 Specific [place] 1.005 DateTime(Free Text in Aprima) URINALYSIS NONAUTO W/O SCOPE 37483 PH 6 DateTime(Free Text in Aprima) URINALYSIS NONAUTO W/O SCOPE 35707 GLUCOSE neg DateTime(Free Text in Aprima) URINALYSIS NONAUTO W/O SCOPE 83934 Protein neg DateTime(Free Text in Aprima) URINALYSIS NONAUTO W/O SCOPE 39245 Blood neg DateTime(Free Text in Aprima) URINALYSIS NONAUTO W/O SCOPE 26986 Bilirubin neg DateTime(Free Text in Aprima) URINALYSIS NONAUTO W/O SCOPE 48604 Ketones neg DateTime(Free Text in Aprima) URINALYSIS NONAUTO W/O SCOPE 94378 Urobilinogen neg DateTime(Free Text in Aprima) URINALYSIS NONAUTO W/O SCOPE 66251 Nitrite neg DateTime(Free Text in Aprima) URINALYSIS NONAUTO W/O SCOPE 87472 Leukocytes neg DateTime(Free Text in Aprima) URINALYSIS NONAUTO W/O SCOPE 07591 Specific [place] 1.010 DateTime(Free Text in Aprima) URINALYSIS NONAUTO W/O SCOPE 05015 PH 6.5 DateTime(Free Text in Apr) URINALYSIS NONAUTO W/O SCOPE 65114 GLUCOSE neg DateTime(Free Text in Apr) URINALYSIS NONAUTO W/O SCOPE 00011 Protein neg DateTime(Free Text in Aprima) URINALYSIS NONAUTO W/O SCOPE 46989 Blood neg DateTime(Free Text in Aprima) URINALYSIS NONAUTO W/O SCOPE 47962 Bilirubin neg DateTime(Free Text in Aprima) URINALYSIS NONAUTO W/O SCOPE 65991 Ketones neg DateTime(Free Text in Apr) URINALYSIS NONAUTO W/O SCOPE 44603 Urobilinogen neg DateTime(Free Text in Apr) URINALYSIS NONAUTO W/O SCOPE 61904 Nitrite neg DateTime(Free Text in ) URINALYSIS NONAUTO W/O SCOPE 72540 Leukocytes neg DateTime(Free Text in ) Review of Systems System Result Effective Dates [...] recall three words at five minutes 11/05/2017 [facility] [place] exam points Full Exam - [...] recall three words at five minutes 01/16/2015 [facility] exam points Full Exam [...] nourished 03/02/2013 None Full Exam - General 1994 Eyes conjunctiva/eyelids Overall: conjunctiva clear 03/02/2013 None Full Exam - General 1994 Eyes conjunctiva/eyelids Overall: cornea clear 03/02/2013 None [...] recall three words at five minutes 03/02/2013 [facility] exam points Full Exam - Dermatology [...] developed 07/07/2012 None Full Exam - General 1995 Constitutional general appearance Overall: in no acute distress 07/07/2012 None Full Exam - General 1995 Constitutional general appearance Overall: well nourished 07/07/2012 [...] recall three words at five minutes 07/07/2012 [facility] exam points Full Exam [...] developed 01/07/2012 None Full Exam - General 1995 Constitutional [...] time 01/07/2012 None Full Exam - General 1995 Psychiatric mood and affect Mood: happy 01/07/2012 None Full Exam - General 1994 Psychiatric mood and affect Affect: mood congruent 01/07/2012 None Full Exam - General 1994 Psychiatric cognition/memory Remote memory: poor recollection of past events 01/07/2012 None Full Exam - General 1995 Psychiatric cognition/memory Recent past memory: unable to recall recent news events 01/07/2012 None Full Exam - General 1994 Psychiatric cognition/memory Immediate memory: unable to repeat 6 digits 01/07/2012 None Full Exam - General 1994 Psychiatric cognition/memory Immediate memory: unable to recall three words at five minutes 01/07/2012 [facility] exam points 13 Full Exam - General 1994 Constitutional general [...] knees 12/17/2011 None Full Exam - General 1995 Cardiovascular auscultation of heart Overall: regular rate 12/17/2011 None Full Exam - General 1994 Cardiovascular auscultation of heart Systolic murmur grade: II/ 12/17/2011 None Full Exam - General 1995 Abdomen abdominal exam Overall: no tenderness 12/17/2011 None Full Exam - General 1995 Abdomen abdominal exam Overall: normal bowel sounds 12/17/2011 None Full Exam - General 1995 Abdomen liver and spleen exam Overall: no hepatosplenomegaly 12/17/2011 None Full Exam - General 1995 [...] recall three words at five minutes 12/17/2011 [facility] exam points Full Exam [...] lesions 12/10/2011 None Full Exam - General 1995 Respiratory auscultation Overall: breath sounds clear bilaterally 12/10/2011 None Full Exam - General 1994 Respiratory respiratory effort/rhythm Overall: no retractions 12/10/2011 None Full Exam - General 1994 Respiratory respiratory effort/rhythm Overall: normal rate 12/10/2011 None Full Exam - General 1995 Cardiovascular extremities Overall: no clubbing 12/10/2011 None [...] digits 12/10/2011 None Full Exam - General 1995 Psychiatric cognition/memory Immediate memory: unable to recall three words at five minutes 12/10/2011 [facility] [place] exam points Full Exam - [...] masses 11/26/2011 None Full Exam - General 1995 Ears/Nose/Throat lips/teeth/gingiva Overall: normal dentition 11/26/2011 None [...] recall three words at five minutes 11/26/2011 [facility] exam points Procedures Procedure Codes Date THER/PROPH/DIAG INJ SC/IM CPT-4: 66067 09/28/2018 VITAMIN B12 INJECTION CPT- 4: J3420 09/28/2018 THER/PROPH/DIAG INJ SC/IM CPT-4: 38526 08/28/2018 VITAMIN B12 INJECTION CPT- 4: J3420 08/28/2018 THER/PROPH/DIAG INJ SC/IM CPT-4: 52998 07/31/2018 VITAMIN B12 INJECTION CPT- 4: J3420 07/31/2018 THER/PROPH/DIAG INJ SC/IM CPT-4: 53446 07/01/2018 VITAMIN B12 INJECTION CPT- 4: J3420 07/01/2018 ADMIN INFLUENZA VIRUS VAC CPT-4: G0008 2018 FLU VACC PRSV FREE INC ANTIG CPT-4: 35104 2018 THER/PROPH/DIAG INJ SC/IM CPT-4: 89067 2018 VITAMIN B12 INJECTION CPT- 4: J3420 2018 THER/PROPH/DIAG INJ SC/IM CPT-4: 62652 03/30/2018 VITAMIN B12 INJECTION CPT- 4: J3420 03/30/2018 THER/PROPH/DIAG INJ SC/IM CPT-4: 59167 03/03/2018 VITAMIN B12 INJECTION CPT- 4: J3420 03/03/2018 THER/PROPH/DIAG INJ SC/IM CPT-4: 82026 01/28/2018 VITAMIN B12 INJECTION CPT- 4: J3420 01/28/2018 THER/PROPH/DIAG INJ SC/IM CPT-4: 40527 12/29/2017 VITAMIN B12 INJECTION CPT- 4: J3420 12/29/2017 THER/PROPH/DIAG INJ SC/IM CPT-4: 49887 12/01/2017 VITAMIN B12 INJECTION CPT- 4: J3420 12/01/2017 VITAMIN B12 INJECTION CPT- 4: J3420 10/28/2017 THER/PROPH/DIAG INJ SC/IM CPT-4: 02011 10/28/2017 THER/PROPH/DIAG INJ SC/IM CPT-4: 78175 09/29/2017 VITAMIN B12 INJECTION CPT- 4: J3420 09/29/2017 THER/PROPH/DIAG INJ SC/IM CPT-4: 55650 09/02/2017 VITAMIN B12 INJECTION CPT- 4: J3420 09/02/2017 THER/PROPH/DIAG INJ SC/IM CPT-4: 06800 08/04/2017 VITAMIN B12 INJECTION CPT- 4: J3420 08/04/2017 THER/PROPH/DIAG INJ SC/IM CPT-4: 83010 07/01/2017 VITAMIN B12 INJECTION CPT- 4: J3420 07/01/2017 THER/PROPH/DIAG INJ SC/IM CPT-4: 21656 05/30/2017 VITAMIN B12 INJECTION CPT- 4: J3420 05/30/2017 THER/PROPH/DIAG INJ SC/IM CPT-4: 25053 2017 ADMIN INFLUENZA VIRUS VAC CPT-4: G0008 2017 TOBACCO-USE TANK BUILDER 3-[address]: 929944970 CPT-4: G0436 2017 VITAMIN B12 INJECTION CPT- 4: J3420 2017 FLU VACC PRSV FREE INC ANTIG CPT-4: 68931 2017 TOBACCO-USE TANK BUILDER 3-[address]: 165141912 CPT-4: G0436 03/31/2017 VITAMIN B12 INJECTION CPT- 4: J3420 03/31/2017 THER/PROPH/DIAG INJ SC/IM CPT-4: 96005 02/28/2017 VITAMIN B12 INJECTION CPT- 4: J3420 02/28/2017 THER/PROPH/DIAG INJ SC/IM CPT-4: 76707 02/03/2017 VITAMIN B12 INJECTION CPT- 4: J3420 02/03/2017 TOBACCO-USE TANK BUILDER 3-[address]: 561244531 CPT-4: G0436 12/30/2016 THER/PROPH/DIAG INJ SC/IM CPT-4: 74453 12/30/2016 VITAMIN B12 INJECTION CPT- 4: J3420 12/30/2016 THER/PROPH/DIAG INJ SC/IM CPT-4: 37317 12/02/2016 VITAMIN B12 INJECTION CPT- 4: J3420 12/02/2016 THER/PROPH/DIAG INJ SC/IM CPT-4: 98422 10/29/2016 VITAMIN B12 INJECTION CPT- 4: J3420 10/29/2016 THER/PROPH/DIAG INJ SC/IM CPT-4: 74827 10/01/2016 VITAMIN B12 INJECTION CPT- 4: J3420 10/01/2016 TOBACCO-USE TANK BUILDER 3-[address]: 029034120 CPT-4: G0436 09/02/2016 VITAMIN B12 INJECTION CPT- 4: J3420 09/02/2016 THER/PROPH/DIAG INJ SC/IM CPT-4: 68588 09/02/2016 THER/PROPH/DIAG INJ SC/IM CPT-4: 54404 08/05/2016 VITAMIN B12 INJECTION CPT- 4: J3420 08/05/2016 THER/PROPH/DIAG INJ SC/IM CPT-4: 85630 07/02/2016 VITAMIN B12 INJECTION CPT- 4: J3420 07/02/2016 VITAMIN B12 INJECTION CPT- 4: J3420 06/03/2016 THER/PROPH/DIAG INJ SC/IM CPT-4: 60322 06/03/2016 THER/PROPH/DIAG INJ SC/IM CPT-4: 31212 2016 VITAMIN B12 INJECTION CPT- 4: J3420 2016 THER/PROPH/DIAG INJ SC/IM CPT-4: 23564 04/01/2016 VITAMIN B12 INJECTION CPT- 4: J3420 04/01/2016 VITAMIN B12 INJECTION CPT- 4: J3420 03/05/2016 THER/PROPH/DIAG INJ SC/IM CPT-4: 44186 03/05/2016 TOBACCO-USE TANK BUILDER 3-[address]: 110229622 CPT-4: G0436 01/29/2016 THER/PROPH/DIAG INJ SC/IM CPT-4: 37878 01/29/2016 VITAMIN B12 INJECTION CPT- 4: J3420 01/29/2016 THER/PROPH/DIAG INJ SC/IM CPT-4: 16474 01/02/2016 VITAMIN B12 INJECTION CPT- 4: J3420 01/02/2016 VITAMIN B12 INJECTION CPT- 4: J3420 12/04/2015 THER/PROPH/DIAG INJ SC/IM CPT-4: 98797 12/04/2015 THER/PROPH/DIAG INJ SC/IM CPT-4: 75841 10/30/2015 VITAMIN B12 INJECTION CPT- 4: J3420 10/30/2015 PPPS, SUBSEQ VISIT CPT- 4: G0439 10/11/2015 TOBACCO-USE TANK BUILDER 3-[address]: 366699037 CPT-4: G0436 10/11/2015 TOBACCO-USE TANK BUILDER 3-[address]: 701687015 CPT-4: G0436 10/02/2015 THER/PROPH/DIAG INJ SC/IM CPT-4: 30412 10/02/2015 VITAMIN B12 INJECTION CPT- 4: J3420 10/02/2015 THER/PROPH/DIAG INJ SC/IM CPT-4: 07056 08/29/2015 VITAMIN B12 INJECTION CPT- 4: J3420 08/29/2015 THER/PROPH/DIAG INJ SC/IM CPT-4: 08508 07/31/2015 VITAMIN B12 INJECTION CPT- 4: J3420 07/31/2015 THER/PROPH/DIAG INJ SC/IM CPT-4: 88888 07/03/2015 VITAMIN B12 INJECTION CPT- 4: J3420 07/03/2015 THER/PROPH/DIAG INJ SC/IM CPT-4: 41002 06/05/2015 VITAMIN B12 INJECTION CPT- 4: J3420 06/05/2015 VITAMIN B12 INJECTION CPT- 4: J3420 05/01/2015 THER/PROPH/DIAG INJ SC/IM CPT-4: 73171 05/01/2015 THER/PROPH/DIAG INJ SC/IM CPT-4: 94818 04/03/2015 VITAMIN B12 INJECTION CPT- 4: J3420 04/03/2015 THER/PROPH/DIAG INJ SC/IM CPT-4: 10094 02/28/2015 VITAMIN B12 INJECTION CPT- 4: J3420 02/28/2015 THER/PROPH/DIAG INJ SC/IM CPT-4: 13929 01/30/2015 VITAMIN B12 INJECTION CPT- 4: J3420 01/30/2015 VITAMIN B12 INJECTION CPT- 4: J3420 01/02/2015 THER/PROPH/DIAG INJ SC/IM CPT-4: 63468 01/02/2015 THER/PROPH/DIAG INJ SC/IM CPT-4: 84252 11/28/2014 VITAMIN B12 INJECTION CPT- 4: J3420 11/28/2014 THER/PROPH/DIAG INJ SC/IM CPT-4: 89080 10/31/2014 VITAMIN B12 INJECTION CPT- 4: J3420 10/31/2014 THER/PROPH/DIAG INJ SC/IM CPT-4: 20389 10/03/2014 VITAMIN B12 INJECTION CPT- 4: J3420 10/03/2014 THER/PROPH/DIAG INJ SC/IM CPT-4: 72594 08/30/2014 VITAMIN B12 INJECTION CPT- 4: J3420 08/30/2014 THER/PROPH/DIAG INJ SC/IM CPT-4: 51987 08/02/2014 VITAMIN B12 INJECTION CPT- 4: J3420 08/02/2014 THER/PROPH/DIAG INJ SC/IM CPT-4: 84712 07/04/2014 VITAMIN B12 INJECTION CPT- 4: J3420 07/04/2014 THER/PROPH/DIAG INJ SC/IM CPT-4: 86322 05/30/2014 VITAMIN B12 INJECTION CPT- 4: J3420 05/30/2014 THER/PROPH/DIAG INJ SC/IM CPT-4: 81051 05/02/2014 VITAMIN B12 INJECTION CPT- 4: J3420 05/02/2014 THER/PROPH/DIAG INJ SC/IM CPT-4: 71322 04/05/2014 THER/PROPH/DIAG INJ SC/IM CPT-4: 48464 03/07/2014 VITAMIN B12 INJECTION CPT- 4: J3420 03/07/2014 THER/PROPH/DIAG INJ SC/IM CPT-4: 34516 02/01/2014 VITAMIN B12 INJECTION CPT- 4: J3420 02/01/2014 VITAMIN B12 INJECTION CPT- 4: J3420 12/30/2013 THER/PROPH/DIAG INJ SC/IM CPT-4: 19009 12/30/2013 THER/PROPH/DIAG INJ SC/IM CPT-4: 58558 11/30/2013 VITAMIN B12 INJECTION CPT- 4: J3420 11/30/2013 THER/PROPH/DIAG INJ SC/IM CPT-4: 17769 11/02/2013 VITAMIN B12 INJECTION CPT- 4: J3420 11/02/2013 THER/PROPH/DIAG INJ SC/IM CPT-4: 20840 08/31/2013 VITAMIN B12 INJECTION CPT- 4: J3420 08/31/2013 THER/PROPH/DIAG INJ SC/IM CPT-4: 73549 08/04/2013 VITAMIN B12 INJECTION CPT- 4: J3420 08/04/2013 VITAMIN B12 INJECTION CPT- 4: J3420 07/06/2013 THER/PROPH/DIAG INJ SC/IM CPT-4: 05595 07/06/2013 THER/PROPH/DIAG INJ SC/IM CPT-4: 86106 05/31/2013 VITAMIN B12 INJECTION CPT- 4: J3420 05/31/2013 ADMIN INFLUENZA VIRUS VAC CPT-4: G0008 05/04/2013 FLULAVAL VACC, 3 YRS & >, IM CPT-4: Q2036 05/04/2013 THER/PROPH/DIAG INJ SC/IM CPT-4: 15518 05/04/2013 VITAMIN B12 INJECTION CPT- 4: J3420 05/04/2013 THER/PROPH/DIAG INJ SC/IM CPT-4: 57821 03/30/2013 VITAMIN B12 INJECTION CPT- 4: J3420 03/30/2013 THER/PROPH/DIAG INJ SC/IM CPT-4: 22431 03/02/2013 VITAMIN B12 INJECTION CPT- 4: J3420 03/02/2013 [id number] EST. PATIENT, LEVEL IV CPT-4: 57290 03/02/2013 THER/PROPH/DIAG INJ SC/IM CPT-4: 88101 02/02/2013 VITAMIN B12 INJECTION CPT- 4: J3420 02/02/2013 THER/PROPH/DIAG INJ SC/IM CPT-4: 88621 12/29/2012 VITAMIN B12 INJECTION CPT- 4: J3420 12/29/2012 TRIAMCINOLONE ACET INJ NOS CPT-4: J3301 12/01/2012 VITAMIN B12 INJECTION CPT- 4: J3420 12/01/2012 VITAMIN B12 INJECTION CPT- 4: J3420 11/03/2012 THER/PROPH/DIAG INJ SC/IM CPT-4: 25518 11/03/2012 THER/PROPH/DIAG INJ SC/IM CPT-4: 16057 09/30/2012 VITAMIN B12 INJECTION CPT- 4: J3420 09/30/2012 PRESCRIP TRANSMIT VIA ERX SY CPT-4: G8553 09/30/2012 VITAMIN B12 INJECTION CPT- 4: J3420 09/08/2012 THER/PROPH/DIAG INJ SC/IM CPT-4: 16865 09/08/2012 THER/PROPH/DIAG INJ SC/IM CPT-4: 22820 08/25/2012 ROUTINE VENIPUNCTURE CPT- 4: 43559 08/25/2012 VITAMIN B12 INJECTION CPT- 4: J3420 08/25/2012 THER/PROPH/DIAG INJ SC/IM CPT-4: 67815 08/11/2012 VITAMIN B12 INJECTION CPT- 4: J3420 08/11/2012 VITAMIN B12 INJECTION CPT- 4: J3420 07/21/2012 THER/PROPH/DIAG INJ SC/IM CPT-4: 15645 07/21/2012 THER/PROPH/DIAG INJ SC/IM CPT-4: 08826 07/07/2012 VITAMIN B12 INJECTION CPT- 4: J3420 07/07/2012 ROUTINE VENIPUNCTURE CPT- 4: 03607 07/07/2012 VITAMIN B12 INJECTION CPT- 4: J3420 06/25/2012 THER/PROPH/DIAG INJ SC/IM CPT-4: 34177 06/25/2012 VITAMIN B12 INJECTION CPT- 4: J3420 06/09/2012 THER/PROPH/DIAG INJ SC/IM CPT-4: 76071 06/09/2012 VITAMIN B12 INJECTION CPT- 4: J3420 05/25/2012 THER/PROPH/DIAG INJ SC/IM CPT-4: 94904 05/25/2012 VITAMIN B12 INJECTION CPT- 4: J3420 05/12/2012 THER/PROPH/DIAG INJ SC/IM CPT-4: 69168 05/12/2012 VITAMIN B12 INJECTION CPT- 4: J3420 04/20/2012 THER/PROPH/DIAG INJ SC/IM CPT-4: 18580 04/20/2012 THER/PROPH/DIAG INJ SC/IM CPT-4: 92683 04/07/2012 VITAMIN B12 INJECTION CPT- 4: J3420 04/07/2012 VITAMIN B12 INJECTION CPT- 4: J3420 03/10/2012 THER/PROPH/DIAG INJ SC/IM CPT-4: 30893 03/10/2012 VITAMIN B12 INJECTION CPT- 4: J3420 02/18/2012 THER/PROPH/DIAG INJ SC/IM CPT-4: 99724 02/18/2012 THER/PROPH/DIAG INJ SC/IM CPT-4: 47982 02/04/2012 VITAMIN B12 INJECTION CPT- 4: J3420 02/04/2012 THER/PROPH/DIAG INJ SC/IM CPT-4: 43685 01/21/2012 VITAMIN B12 INJECTION CPT- 4: J3420 01/21/2012 VITAMIN B12 INJECTION CPT- 4: J3420 01/07/2012 VITAMIN B12 INJECTION CPT- 4: J3420 12/17/2011 URINALYSIS NONAUTO W/O SCOPE CPT-4: 24786 12/10/2011 ROUTINE VENIPUNCTURE CPT- 4: 92711 12/10/2011 URINALYSIS NONAUTO W/O SCOPE CPT-4: 35602 11/26/2011 Vital Signs Date Vital 11/05/2017 Blood Pressure 1: 136/82 Code: 8480-6 BMI: 25.7 Code: 15516-6 Heart Rate 1: 78 bpm Height: 5'7" SpO2: 97% Weight: 164 lbs 10/28/2017 Height: 5'7" 12/18/2015 Blood Pressure 1: 140/68 Code: 8480-6 BMI: 25.7 Code: 40485-9 Heart Rate 1: 83 bpm Height: 5'7" SpO2: 95% Weight: 164 lbs 10/11/2015 Blood Pressure 1: 128/80 Code: 8480-6 BMI: 26.0 Code: 66114-9 Heart Rate 1: 80 bpm Height: 5'7" SpO2: 97% Waist Measure (cm): 89 cm Weight: 166 lbs 01/16/2015 Blood Pressure 1: 122/84 Code: 8480-6 BMI: 25.7 Code: 62214-9 Heart Rate 1: 68 bpm Height: 5'7" SpO2: 95% Weight: 164 lbs 08/02/2014 Blood Pressure 1: 140/86 Code: 8480-6 BMI: 25.1 Code: 64499-0 Heart Rate 1: 64 bpm Height: 5'7" Weight: 160 lbs 03/02/2013 Blood Pressure 1: 108/74 Code: 8480-6 BMI: 28.3 Code: 03886-7 Heart Rate 1: 80 bpm Height: 5'7" Weight: 181 lbs 09/30/2012 Blood Pressure 1: 126/74 Code: 8480-6 Heart Rate 1: 64 bpm Weight: 07/07/2012 Blood Pressure 1: 130/84 Code: 8480-6 BMI: 26.6 Code: 99726-3 Heart Rate 1: 80 bpm Height: 5'7" [...] 1: 110/68 Code: 8480-6 BMI: 25.7 Code: 92799-0 Heart Rate 1: 68 bpm Height: 5'7" [...] Codes Date EST. PATIENT, LEVEL III Diagnosis: Other schizophrenia[ICD10: F20.89] Diagnosis: Generalized anxiety disorder[ICD10: F41.1] Diagnosis: Major depressive disorder, single episode, moderate[ICD10: F32.1] [facility] CPT-4: 53609 11/05/2017 [id number] EST. PATIENT, LEVEL III Diagnosis: Encounter for follow-up examination after completed treatment for conditions other than malignant neoplasm[ICD10: Z09] Susan Vitale MD, [facility] CPT-4: 96005 12/18/2015 [id number] EST. PATIENT, LEVEL IV Diagnosis: Cellulitis of right lower limb[ICD10: L03.115] Diagnosis: Vitamin B12 deficiency anemia due to intrinsic factor deficiency[ICD10: D51.0] Loren Vitale MD, [facility] CPT-4: 07403 12/04/2015 ([id number]) Miscellaneous no charge Diagnosis: Vitamin B deficiency, unspecified[ICD10: E53.9] Loren Vitale MD, [facility] CPT-4: 23424 07/31/2015 ([id number]) 80005 EST. PATIENT, LEVEL IV Diagnosis: Schizophrenia[ICD9: 295.90] Diagnosis: DEPRESSIVE DISORDER NEC[ICD9: 311] Diagnosis: Medication dose changed[ICD9: V58.69] Diagnosis: Leg pain[ICD9: 729.5] Loren Vitale MD, [facility] CPT-4: 14345 01/16/2015 ([id number]) 44356 EST. PATIENT, LEVEL III Diagnosis: Rash[ICD9: 782.1] Camille Vitale MD, [facility] CPT-4: 68427 08/02/2014 ([id number]) Miscellaneous no charge Diagnosis: SCHIZO NOS, CHRN[ICD9: 295.92] Loren Vitale MD, [facility] CPT-4: 33870 05/03/2013 ([id number]) 20845 EST. PATIENT, LEVEL III Diagnosis: Rash[ICD9: 782.1] Diagnosis: B-COMPLEX DEFIC NEC[ICD9: 266.2] Loren Vitale MD, [facility] CPT-4: 21968 09/30/2012 ([id number]) 84566 EST. PATIENT, LEVEL IV Diagnosis: SCHIZO NOS, CHRN[ICD9: 295.92] Diagnosis: DEMEN NOS W/O BEHV DSTRB[ICD9: 294.20] Loren Vitale MD, [facility] CPT-4: 61081 07/07/2012 ([id number]) 70044 EST. PATIENT, LEVEL IV Diagnosis: DEMEN NOS W/O BEHV DSTRB[ICD9: 294.20] Diagnosis: SCHIZO NOS, CHRN[ICD9: 295.92] Diagnosis: Vitamin B 12 deficiency[ICD9: 266.2] Loren Vitale MD, [facility] CPT- 4: 13991 01/07/2012 [id number] [id number] EST. PATIENT, LEVEL IV Diagnosis: DEMEN NOS W/O BEHV DSTRB[ICD9: 294.20] Diagnosis: ALTERED MENTAL STATUS[ICD9: 780.97] Diagnosis: Myalgia[ICD9: 729.1] Loren Vitale MD, [facility] CPT-4: 10516 12/17/2011 [id number] [id number] EST. PATIENT, LEVEL IV Diagnosis: Orthostatic hypotension[ICD9: 458.0] Diagnosis: Hypokalemia[ICD9: 276.8] Diagnosis: DEMEN NOS W/O BEHV DSTRB[ICD9: 294.20] Diagnosis: SCHIZO NOS, CHRN[ICD9: 295.92] Diagnosis: ALTERED MENTAL STATUS[ICD9: 780.97] Camille Vitale MD, [facility] CPT-4: 69989 12/10/2011 OFFICE/OUTPATIENT VISIT NEW Diagnosis: Schizophrenia, chronic condition[ICD9: 295.92] Diagnosis: Encounter for long-term (current) use of other high-risk medications[ICD9: V58.69] Loren Vitale MD, [facility] CPT-4: 06236 11/26/2011 Plan of Care Planned Activity Notes Codes Status Date Patient Education: Patient Medication Summary Completed 09/28/2018 [...] current medications. 11/05/2017 Appointment: [facility] Rudd [id number] ([facility] min) [facility] 11/05/2017 Patient Education: Patient Medication Summary Completed [...] in pain. 12/18/2015 Appointment: Susan Rudd WPtel: [address] [place], [place] [id number] (30 min) [facility] 12/18/2015 Patient Education: Patient Medication Summary Completed [...] pain. 12/04/2015 Appointment: [facility]udd [facility]el[facility] [phone] [facility] (10 min) Simple 12/04/2015 Patient Education: [...] paperwork for health care surrogate. 10/11/2015 Appointment: [facility] - Annual Wellness Visit 10/11/2015 [...] check labs. 01/16/2015 App[facility]ment: [facility] [phone] [id number] [place] (15 min) Moderate 01/16/2015 Patient Education: Patient Medication Summary Completed 01/16/2015 Appointment: Injection 01/02/2015 Patient Education: Patient Medication Summary Completed 01/02/2015 Patient Education: Patient Medication Summary Completed 11/28/2014 Patient Education: Patient Medication Summary Completed 10/31/2014 Patient Education: Patient Medication Summary Completed 10/03/2014 Patient Education: Patient Medication Summary Completed 08/30/2014 Visit Plan: Hftj-uoquhjxy-pmmnbfoyhapvw cream to affected area twice daily as directed-call if rash does not completely resolve B12 deficiency-B12 injection today in the office 08/02/2014 Appointment: Camille Devi WPtel: [phone] [place] S[place] 08/02/2014 Patient Education: Patient Medication Summary Completed 08/02/2014 Patient Education: Patient Medication Summary Completed 07/04/2014 Patient Education: Patient Medication Summary Completed 05/30/2014 Appointment: [facility] [phone] [id number] [place] Injection 05/02/2014 Patient Education: Patient Medication Summary Completed 05/02/2014 Patient Education: Patient Medication Summary Completed 04/05/2014 Appointment: aCmille Devi [phone] [phone] [place] Injection 03/07/2014 Patient Education: Patient Medication Summary Completed 03/07/2014 [phone] [id number] [place] [facility] 02/01/2014 Patient Education: Patient Medication Summary Completed 02/01/2014 App[facility]ment: [phone] [id number] [place] [facility] 12/30/2013 Patient Education: Patient Medication Summary Completed 12/30/2013 Appointment: [facility] [phone] [id number] [place] [facility] 11/30/2013 Patient Education: Patient Medication Summary Completed 11/30/2013 Appointment: Camille Devi [facility]el[facility] [phone] [phone] [place] Injection 11/02/2013 Patient Education: Patient Medication Summary Completed 11/02/2013 App[facility]ment: [facility] [phone] [id number] [place] [facility] 09/28/2013 Appointment: [facility]el[facility] [phone] [id number] [place] [facility] 08/31/2013 Patient Education: Patient Medication Summary Completed 08/31/2013 Patient Education: Patient Medication Summary Completed 08/04/2013 App[facility]ment: [facility] [phone] [id number] [place] [facility] 08/03/2013 Appointment: Loren [facility]Ptel[facility] [phone] [id number] [place] 07/06/2013 Patient Education: Patient Medication Summary Completed 07/06/2013 Appointment: Camille Devi [facility]el[facility] [phone] [phone] [place] Injection 05/31/2013 Patient Education: Patient Medication Summary Completed 05/31/2013 Appointment: Cam[facility]el[facility] [phone] [phone] [place] Injection 05/04/2013 Patient Education: Patient [...] psychiatrist. 05/03/2013 Appointment: [facility]Ptel[facility] [phone] [id number] [place] Other 05/03/2013 Patient Education: Patient Medication Summary Completed 05/03/2013 Appointment: Camille Devi [facility]Ptel[facility] [phone] [phone] [place] Injection 03/30/2013 Patient Education: Patient [...] He is to see Dr. Treviño at [facility]. 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 03/02/2013 Appointment: Loren [facility]Ptel[facility] [phone] [id number] [place] Follow up 03/02/2013 Patient Education: Patient Medication Summary Completed 03/02/2013 Appointment: [facility]Ptel[facility] [phone] [id number] [place] [facility] 02/02/2013 Patient Education: Patient Medication Summary Completed 02/02/2013 Patient Education: Patient Medication Summary Completed 12/29/2012 Appointment: Camille Devi [facility]Ptel[facility] [phone] [phone] [place] In[place] 12/01/2012 Patient Education: Patient Medication Summary Completed 12/01/2012 Appointment: [facility]Ptel[facility] [phone] [id number] [place] 11/03/2012 Patient Education: Patient Medication Summary Completed 11/03/2012 Visit Plan: Rash-discussed natural and expected course of this diagnosis and to alert me if symptoms do not follow expected course, or if any worse. RX sent to patient's pharmacy and instructed on use. B12 def-injection today in the office 09/30/2012 Appointment: Loren [facility]Ptel[facility] [phone] [id number] [place] Other 09/30/2012 Patient Education: Patient Medication Summary Completed 09/30/2012 Patient Education: Patient Medication Summary Completed 09/08/2012 Appointment: Camille Devi [facility]Ptel[facility] [phone] [phone] [place] Injection 08/25/2012 Patient Education: Patient Medication Summary Completed 08/25/2012 Appointment: [facility]Ptel[facility] [phone] [id number] [place] 08/11/2012 Patient Education: Patient Medication Summary Completed 08/11/2012 Appointment: [facility]Ptel[facility] [phone] [id number] [place] [facility] 07/21/2012 Patient Education: Patient [...] He is to see Dr. Treviño at [facility]. 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 07/07/2012 Appointment: Loren Vitale WPtel[facility] [phone] [facility] Follow up 07/07/2012 Patient Education: Patient Medication Summary Completed 07/07/2012 Patient Education: Patient Medication Summary Completed 06/25/2012 Patient Education: Patient Medication Summary Completed 06/09/2012 Patient Education: Patient Medication Summary Completed 05/25/2012 Appointment: Loren Vitale WPtel[facility] [phone] [id number] [place] 05/12/2012 Patient Education: Patient Medication Summary Completed 05/12/2012 Patient Education: Patient Medication Summary Completed 04/20/2012 Appointment: Camille Devi [facility]Ptel[facility] [phone] [phone] [place] Injection 04/07/2012 Patient Education: Patient Medication Summary Completed 04/07/2012 Appointment: Camille Devi [facility]Ptel: [phone] [phone] [place] Injection 03/24/2012 Appointment: Camille Devi [facility]Ptel: [phone] [facility] [place] Injection 03/10/2012 Patient Education: Patient Medication Summary Completed 03/10/2012 Appointment: Loren [facility]Ptel: [phone] [facility] [place] [facility] 02/18/2012 Patient Education: Patient Medication Summary Completed 02/18/2012 Appointment: Loren [facility]Ptel[facility] [phone] [facility] [place] 02/04/2012 Patient Education: Patient Medication Summary Completed 02/04/2012 Appointment: Loren [facility]Ptel: [phone] [facility] [place] 01/21/2012 Patient Education: Patient [...] normal. 01/07/2012 Appointment: [facility]Ptel[facility] [phone] [facility] [facility] 01/07/2012 Patient Education: Patient Medication Summary [...] ahold of Juan's psychiatrist who is in [place], but he is apparently on vacation to the [facility] and may not respond until he gets back in December. I think that Juan's medications need adjusted and that is the largest part of his new symptoms. 12/17/2011 Appointment: Loren Vitale WPtel: [phone] [facility] Other 12/17/2011 Patient Education: Patient Medication [...] about assistance. 12/10/2011 Appointment: Camille Devi WPtel: [address] [place] [id number] Work-in 12/10/2011 Patient Education: Patient Medication Summary [...] expressed understanding. 11/26/2011 Appointment: Loren Vitale WPtel: [facility] [place] Patient 11/26/2011 Patient Education: Patient [...] He is to see Dr. Treviño at [facility]. B 12 deficiency and folate [...] disease state. The patient/family expressed understanding. . Gfix-hichuogt-pibzdihqupcde cream to affected area twice daily as directed-call if rash does not completely resolve B12 deficiency-B12 injection today in the office . Vascular Dementia - Pt with slowly [...] keep his B12 levels at normal. . Rash-discussed natural and expected course of this diagnosis and to alert me if symptoms do not follow expected course, or if any worse. RX sent to patient's pharmacy and instructed on use. B12 def-injection today in the office . Pt's brother was explained to that [...] ahold of Juan's psychiatrist who is in [place], but he is apparently on vacation to the [facility] and may not respond until he gets back in December. I think that Juan's medications need adjusted and that is the largest part of his new symptoms. . Abscess/Cellulitis - right inner thigh lesion resolved - The patient is to call for any change in symptoms, increase in size of the lesion, increase in pain. . Hypotension-discussed natural and expected course of [...] the medications at once. Potassium low in May-recheck labs-chem panel, cpk, b12 level. . Hypotension-discussed [...] He is to see Dr. Treviño at [facility]. B 12 deficiency and folate [...] exposure. No change in current medications. . Discussed with Rubén that Juan does [...]
--- OUTSIDE RECORDS SUMMARY | 2018-12-22 15:56 | XMS REPORT | CCD ---
Author Author Loren Vitale MD, [facility] Address [address] [place] [address] Phone Care Team Providers Care Design Supervisor Name Role Phone PP Unavailable CCM Unavailable Summary Purpose Interface Exchange Insurance Providers Payer name Policy type / Coverage type Covered green party ID Effective Begin Date Effective End Date WPS Medicare Part B Medicare Part B [id number] Unknown [place] [employer] Medicare Part B [id number] Unknown Family history Sister Diagnosis Age At Onset No Family Disease Entered N/A First cousin Diagnosis Age At Onset No Family Disease Entered N/A Mother Diagnosis Age At Onset Dementia Unknown Social History Social History Element Codes Description Effective Dates Marital status Unknown Single 11/26/[address]: 11556666 Current every day smoker 2 packs daily 11/26/[address]: 223538967 Never drinks alcohol 11/26/2011 Has the patient [...] Start Date Stop Date Status Fill Instructions Wellbutrin SR 100 mg tablet, 12 hr sustained-release RxNorm: 140454 Tablet(s) TAKE ONE TABLET BY MOUTH EVERY NIGHT AT BEDTIME 09/07/2018 03/05/2019 Active cyanocobalamin (vit B-12) 1,000 mcg/mL injection solution RxNorm: 947029 Milliliter(s) Inj 08/28/2018 08/28/2018 Inactive cyanocobalamin (vit B-12) 1,000 mcg/mL injection solution RxNorm: 037270 Milliliter(s) Inj 07/31/2018 07/31/2018 Inactive cyanocobalamin (vit B-12) 1,000 mcg/mL injection solution RxNorm: 701628 Milliliter(s) Inj 07/01/2018 07/01/2018 Inactive cyanocobalamin (vit B-12) 1,000 mcg/mL injection solution RxNorm: 758607 Milliliter(s) Inj 2018 2018 Inactive Wellbutrin SR 100 mg tablet, 12 hr sustained-release RxNorm: 299023 TAKE ONE TABLET BY MOUTH EVERY NIGHT AT BEDTIME 04/28/2018 10/23/2018 Active cyanocobalamin (vit B-12) 1,000 mcg/mL injection solution RxNorm: 697759 Milliliter(s) Inj 03/30/2018 03/30/2018 Inactive cyanocobalamin (vit B-12) 1,000 mcg/mL injection solution RxNorm: 347187 1 Milliliter(s) Inj 03/03/2018 03/03/2018 Inactive cyanocobalamin (vit B-12) 1,000 mcg/mL injection solution RxNorm: 403816 1 Milliliter(s) Inj 01/28/2018 01/28/2018 Inactive cyanocobalamin (vit B-12) 1,000 mcg/mL injection solution RxNorm: 876367 Milliliter(s) Inj 12/29/2017 12/29/2017 Inactive cyanocobalamin (vit B-12) 1,000 mcg/mL injection solution RxNorm: 614737 1 Milliliter(s) Inj 12/01/2017 12/01/2017 Inactive Wellbutrin SR 100 mg tablet, 12 hr sustained-release RxNorm: 847394 TAKE ONE TABLET BY MOUTH EVERY NIGHT AT BEDTIME 10/28/2017 04/25/2018 Inactive cyanocobalamin (vit B-12) 1,000 mcg/mL injection solution RxNorm: 482409 1 Milliliter(s) Inj 10/28/2017 10/28/2017 Inactive cyanocobalamin (vit B-12) 1,000 mcg/mL injection solution RxNorm: 107471 Milliliter(s) Inj 09/29/2017 09/29/2017 Inactive cyanocobalamin (vit B-12) 1,000 mcg/mL injection solution RxNorm: 497985 Milliliter(s) Inj 09/02/2017 09/02/2017 Inactive cyanocobalamin (vit B-12) 1,000 mcg/mL injection solution RxNorm: 579698 Milliliter(s) Inj 08/04/2017 08/04/2017 Inactive cyanocobalamin (vit B-12) 1,000 mcg/mL injection solution RxNorm: 938831 1 Milliliter(s) Inj 07/01/2017 07/01/2017 Inactive cyanocobalamin (vit B-12) 1,000 mcg/mL injection solution RxNorm: 775772 Milliliter(s) Inj 05/30/2017 05/30/2017 Inactive cyanocobalamin (vit B-12) 1,000 mcg/mL injection solution RxNorm: 730753 1 Milliliter(s) Inj 2017 2017 Inactive Wellbutrin SR 100 mg tablet, 12 hr sustained-release RxNorm: 529160 TAKE ONE TABLET BY MOUTH EVERY NIGHT AT BEDTIME 04/23/2017 10/19/2017 Inactive cyanocobalamin (vit B-12) 1,000 mcg/mL injection solution RxNorm: 077598 Milliliter(s) Inj 03/31/2017 03/31/2017 Inactive cyanocobalamin (vit B-12) 1,000 mcg/mL injection solution RxNorm: 878671 Milliliter(s) Inj 02/28/2017 02/28/2017 Inactive cyanocobalamin (vit B-12) 1,000 mcg/mL injection solution RxNorm: 805947 Milliliter(s) Inj 02/03/2017 02/03/2017 Inactive cyanocobalamin (vit B-12) 1,000 mcg/mL injection solution RxNorm: 806115 1 Milliliter(s) Inj 12/30/2016 12/30/2016 Inactive cyanocobalamin (vit B-12) 1,000 mcg/mL injection solution RxNorm: 580290 1 Milliliter(s) Inj 12/02/2016 12/02/2016 Inactive Wellbutrin SR 100 mg tablet, 12 hr sustained-release RxNorm: 220033 TAKE ONE TABLET BY MOUTH EVERY NIGHT AT BEDTIME 10/30/2016 04/22/2017 Inactive cyanocobalamin (vit B-12) 1,000 mcg/mL injection solution RxNorm: 233593 Milliliter(s) Inj 10/29/2016 10/29/2016 Inactive cyanocobalamin (vit B-12) 1,000 mcg/mL injection solution RxNorm: 786300 1 Milliliter(s) Inj 10/01/2016 10/01/2016 Inactive cyanocobalamin (vit B-12) 1,000 mcg/mL injection solution RxNorm: 196081 Milliliter(s) Inj 09/02/2016 09/02/2016 Inactive cyanocobalamin (vit B-12) 1,000 mcg/mL injection solution RxNorm: 728975 Milliliter(s) Inj 08/05/2016 08/05/2016 Inactive cyanocobalamin (vit B-12) 1,000 mcg/mL injection solution RxNorm: 707192 1 Milliliter(s) Inj 07/02/2016 07/02/2016 Inactive cyanocobalamin (vit B-12) 1,000 mcg/mL injection solution RxNorm: 585172 Milliliter(s) Inj 06/03/2016 06/03/2016 Inactive cyanocobalamin (vit B-12) 1,000 mcg/mL injection solution RxNorm: 358529 Milliliter(s) Inj 2016 2016 Inactive Wellbutrin SR 100 mg tablet,sustained-release RxNorm: 414174 1 Tablet(s) PO QHS 04/01/2016 10/27/2016 Inactive cyanocobalamin (vit B-12) 1,000 mcg/mL injection solution RxNorm: 215290 Milliliter(s) Inj 04/01/2016 04/01/2016 Inactive cyanocobalamin (vit B-12) 1,000 mcg/mL injection solution RxNorm: 663129 1 Milliliter(s) Inj 03/05/2016 03/05/2016 Inactive cyanocobalamin (vit B-12) 1,000 mcg/mL injection solution RxNorm: 773866 Milliliter(s) Inj 01/29/2016 01/29/2016 Inactive cyanocobalamin (vit B-12) 1,000 mcg/mL injection solution RxNorm: 208651 Milliliter(s) Inj 01/02/2016 01/02/2016 Inactive mupirocin 2 % topical ointment RxNorm: 179091 1 Application TOP BID 12/04/2015 No Stop Date Active doxycycline hyclate 100 mg capsule RxNorm: 4707855 1 Capsule(s) PO BID 12/04/2015 12/13/2015 Inactive cyanocobalamin (vit B-12) 1,000 mcg/mL injection solution RxNorm: 575752 Milliliter(s) Inj 10/30/2015 10/30/2015 Inactive cyanocobalamin (B12)-cobamamide 5,000 mcg-100 mcg sublingual tablet RxNorm: 948611 Tablet(s) SL 10/02/2015 10/02/2015 Inactive Wellbutrin SR 100 mg tablet,sustained-release RxNorm: 473019 1 Tablet(s) PO QHS 09/08/2015 03/31/2016 Inactive cyanocobalamin (vit B-12) 1,000 mcg/mL injection solution RxNorm: 217224 Milliliter(s) Inj 08/29/2015 08/29/2015 Inactive cyanocobalamin (vit B-12) 1,000 mcg/mL injection solution RxNorm: 995024 Milliliter(s) Inj 07/31/2015 07/31/2015 Inactive cyanocobalamin (vit B-12) 1,000 mcg/mL injection solution RxNorm: 047634 Milliliter(s) Inj 06/05/2015 06/05/2015 Inactive cyanocobalamin (vit B-12) 1,000 mcg/mL injection solution RxNorm: 678517 Milliliter(s) Inj 05/01/2015 05/01/2015 Inactive cyanocobalamin (vit B-12) 1,000 mcg/mL injection solution RxNorm: 378549 Milliliter(s) Inj 04/03/2015 04/03/2015 Inactive cyanocobalamin (vit B-12) 1,000 mcg/mL injection solution RxNorm: 555805 Milliliter(s) Inj 02/28/2015 02/28/2015 Inactive cyanocobalamin (vit B-12) 1,000 mcg/mL injection solution RxNorm: 946508 Milliliter(s) Inj 01/30/2015 01/30/2015 Inactive Wellbutrin SR 100 mg tablet,sustained-release RxNorm: 193120 1 Tablet(s) PO QHS 01/16/2015 08/13/2015 Inactive cyanocobalamin (vit B-12) 1,000 mcg/mL injection solution RxNorm: 292180 1 Milliliter(s) Inj 01/02/2015 01/02/2015 Inactive cyanocobalamin (vit B-12) 1,000 mcg/mL injection solution RxNorm: 376741 1 Milliliter(s) Inj 11/28/2014 11/28/2014 Inactive cyanocobalamin (vit B-12) 1,000 mcg/mL injection solution RxNorm: 937366 Milliliter(s) Inj 10/31/2014 10/31/2014 Inactive [SAVINGS FOR NON-COVERED DRUGS -- BIN:[id number], PCN: [id number], Group: XXXXX, ID# [id number], Questions: . THIS IS NOT INSURANCE.] cyanocobalamin (vit B-12) 1,000 mcg/mL injection solution RxNorm: 042083 1 Milliliter(s) Inj daily 10/03/2014 10/03/2014 Inactive [SAVINGS FOR NON-COVERED DRUGS -- BIN:777184, PCN: ASPROD1, Group: XXXXX, ID# [id number], Questions: . THIS IS NOT INSURANCE.] cyanocobalamin (vit B-12) 1,000 mcg/mL injection solution RxNorm: 975390 Milliliter(s) Inj 08/30/2014 08/30/2014 Inactive [SAVINGS FOR NON-COVERED DRUGS -- BIN:601112, PCN: ASPROD1, Group: XXXXX, ID# [id number], Questions: . THIS IS NOT INSURANCE.] nystatin-triamcinolone 100,000 unit/g-0.1 % topical cream RxNorm: 7005469 1 Application TOP BID 08/02/2014 08/08/2014 Inactive [SAVINGS FOR UNINSURED PATIENTS -- BIN:205527, PCN: ASPROD1, Group: [id number], ID# [id number], Process claim through [employer], for questions: . THIS IS NOT INSURANCE.] cyanocobalamin (vit B-12) 1,000 mcg/mL injection solution RxNorm: 726741 Milliliter(s) Inj 08/02/2014 08/02/2014 Inactive [SAVINGS FOR UNINSURED PATIENTS -- BIN:628829, PCN: ASPROD1, Group: [id number], ID# [id number], Process claim through [employer], for questions: . THIS IS NOT INSURANCE.] cyanocobalamin (vit B-12) 1,000 mcg/mL injection kit RxNorm: 613172 Milliliter(s) Inj 07/04/2014 07/04/2014 Inactive [SAVINGS FOR UNINSURED PATIENTS -- BIN:352076, PCN: ASPROD1, Group: [id number], ID# [id number], Process claim through [employer], for questions: . THIS IS NOT INSURANCE.] cyanocobalamin (vit B-12) 1,000 mcg/mL injection solution RxNorm: 330933 Milliliter(s) Inj 05/30/2014 05/30/2014 Inactive cyanocobalamin (vit B-12) 1,000 mcg/mL injection solution RxNorm: 450722 Milliliter(s) Inj 05/02/2014 05/02/2014 Inactive cyanocobalamin (vit B-12) 1,000 mcg/mL injection solution RxNorm: 314325 Milliliter(s) Inj 04/05/2014 04/05/2014 Inactive cyanocobalamin (vit B-12) 1,000 mcg/mL injection solution RxNorm: 710346 Milliliter(s) Inj 03/07/2014 03/07/2014 Inactive cyanocobalamin (vit B-12) 1,000 mcg/mL injection solution RxNorm: 776183 1 Milliliter(s) Inj 02/01/2014 02/01/2014 Inactive cyanocobalamin (vit B-12) 1,000 mcg/mL injection solution RxNorm: 947173 1 Milliliter(s) Inj 12/30/2013 12/30/2013 Inactive [SAVINGS FOR UNINSURED PATIENTS -- BIN:354883, PCN: ASPROD1, Group: [id number], ID# [id number], Process claim through [employer], for questions: . THIS IS NOT INSURANCE.] cyanocobalamin (vit B-12) 1,000 mcg/mL injection solution RxNorm: 749044 Milliliter(s) Inj 11/30/2013 11/30/2013 Inactive cyanocobalamin (vit B-12) 1,000 mcg/mL injection solution RxNorm: 440798 1 Milliliter(s) Inj 11/02/2013 11/02/2013 Inactive Vitamin B-12 1,000 mcg/mL injection solution RxNorm: 390623 Milliliter(s) Inj 08/31/2013 08/31/2013 Inactive Vitamin B-12 1,000 mcg/mL injection solution RxNorm: 219504 1 Milliliter(s) Inj 08/04/2013 08/04/2013 Inactive Vitamin B-12 1,000 mcg/mL injection solution RxNorm: 164009 Milliliter(s) Inj 07/06/2013 07/06/2013 Inactive cyanocobalamin (vit B-12) 1,000 mcg/mL injection solution RxNorm: 320858 Milliliter(s) Inj 05/31/2013 05/31/2013 Inactive cyanocobalamin (vit B-12) 1,000 mcg/mL injection kit RxNorm: 894003 Milliliter(s) Inj 05/04/2013 05/04/2013 Inactive cyanocobalamin (vitamin B-12) 1,000 mcg/mL Injection RxNorm: 680163 Milliliter(s) Inj 03/30/2013 03/30/2013 Inactive cyanocobalamin (vitamin B-12) 1,000 mcg/mL Injection RxNorm: 388110 Milliliter(s) Inj 02/02/2013 02/02/2013 Inactive cyanocobalamin (vitamin B-12) 1,000 mcg/mL Injection RxNorm: 456589 Milliliter(s) Inj 12/29/2012 12/29/2012 Inactive cyanocobalamin (vitamin B-12) 1,000 mcg/mL Injection RxNorm: 690305 Milliliter(s) Inj 12/01/2012 12/01/2012 Inactive Vitamin B-12 1,000 mcg tablet RxNorm: 815412 Tablet(s) PO 11/03/2012 11/03/2012 Inactive Vitamin B-12 1,000 mcg/mL Injection RxNorm: 214789 1 Milliliter(s) Inj 09/30/2012 09/30/2012 Inactive triamcinolone acetonide 0.1 % Topical Cream RxNorm: 6739676 1 Application TOP BID 09/30/2012 10/13/2012 Inactive Vitamin B-12 1,000 mcg/mL Injection RxNorm: 027533 1 Milliliter(s) Inj 09/08/2012 09/08/2012 Inactive cyanocobalamin (vitamin B-12) 1,000 mcg/mL Injection RxNorm: 734883 1 Milliliter(s) Inj 08/25/2012 08/25/2012 Inactive cyanocobalamin (vitamin B-12) 1,000 mcg/mL Injection RxNorm: 734640 1 Milliliter(s) Inj 08/11/2012 08/11/2012 Inactive cyanocobalamin (vitamin B-12) 1,000 mcg/mL Injection RxNorm: 927326 1 Milliliter(s) Inj 07/21/2012 07/21/2012 Inactive Vitamin B-12 1,000 mcg/mL Injection RxNorm: 802618 Milliliter(s) Inj 07/07/2012 07/07/2012 Inactive cyanocobalamin (vitamin B-12) 1,000 mcg/mL Injection RxNorm: 704234 1 Milliliter(s) Inj 06/25/2012 06/25/2012 Inactive Vitamin B-12 1,000 mcg/mL Injection RxNorm: 764853 1 Milliliter(s) Inj 06/09/2012 06/09/2012 Inactive Vitamin B-12 1,000 mcg/mL Injection RxNorm: 691423 Milliliter(s) Inj 05/25/2012 05/25/2012 Inactive Vitamin B-12 1,000 mcg/mL Injection RxNorm: 662659 Milliliter(s) Inj 05/12/2012 05/12/2012 Inactive Vitamin B-12 1,000 mcg/mL Injection RxNorm: 540833 Milliliter(s) Inj 04/20/2012 04/20/2012 Inactive Vitamin B-12 1,000 mcg/mL Injection RxNorm: 077425 Milliliter(s) Inj 04/07/2012 04/07/2012 Inactive Vitamin B-12 1,000 mcg/mL Injection RxNorm: 898980 Milliliter(s) Inj 03/10/2012 03/10/2012 Inactive Vitamin B-12 1,000 mcg/mL Injection RxNorm: 878187 Milliliter(s) Inj 02/18/2012 02/18/2012 Inactive Vitamin B-12 1,000 mcg/mL Injection RxNorm: 291582 Milliliter(s) Inj 02/04/2012 02/04/2012 Inactive Vitamin B-12 1,000 mcg/mL Injection RxNorm: 734356 Milliliter(s) Inj 01/21/2012 01/21/2012 Inactive Vitamin B-12 1,000 mcg/mL Injection RxNorm: 196173 Milliliter(s) Inj 01/07/2012 01/07/2012 Inactive Vitamin B-12 1,000 mcg/mL Injection RxNorm: 914351 Milliliter(s) Inj 12/17/2011 12/17/2011 Inactive KCL 10 meq RxNorm: 1 PO daily 12/12/2011 12/16/2011 Inactive Vitamin B-12 1,000 mcg/mL Injection RxNorm: 675257 1 Milliliter(s) Inj monthly No Start Date Active Wellbutrin SR 200 mg Tab RxNorm: 287314 1 Tablet(s) PO daily No Start Date Active Anafranil 25 mg Cap RxNorm: 922411 1 Capsule(s) PO daily No Start Date Active Stelazine 5 mg Tab RxNorm: 463196 1 Tablet(s) PO BID No Start Date Active clonazepam 1 mg Tab RxNorm: 648767 1 Tablet(s) PO BID No Start Date Active risperidone 3 mg Tab RxNorm: 617587 Tablet(s) PO No Start Date Active 2 on even days 3 on odd days Cogentin 1 mg Tab RxNorm: 659745 1 Tablet(s) PO TID No Start Date Active Medication Administered Medication Codes Instructions Start Date Status cyanocobalamin (vit B-12) 1,000 mcg/mL injection solution RxNorm: 178164 Milliliter 08/28/2018 No longer Active cyanocobalamin (vit B-12) 1,000 mcg/mL injection solution RxNorm: 015122 Milliliter 07/31/2018 No longer Active cyanocobalamin (vit B-12) 1,000 mcg/mL injection solution RxNorm: 471624 Milliliter 07/01/2018 No longer Active cyanocobalamin (vit B-12) 1,000 mcg/mL injection solution RxNorm: 202616 Milliliter 2018 No longer Active cyanocobalamin (vit B-12) 1,000 mcg/mL injection solution RxNorm: 990564 Milliliter 03/30/2018 No longer Active cyanocobalamin (vit B-12) 1,000 mcg/mL injection solution RxNorm: 558189 1Milliliter 03/03/2018 No longer Active cyanocobalamin (vit B-12) 1,000 mcg/mL injection solution RxNorm: 790420 1Milliliter 01/28/2018 No longer Active cyanocobalamin (vit B-12) 1,000 mcg/mL injection solution RxNorm: 645968 Milliliter 12/29/2017 No longer Active cyanocobalamin (vit B-12) 1,000 mcg/mL injection solution RxNorm: 102163 1Milliliter 12/01/2017 No longer Active cyanocobalamin (vit B-12) 1,000 mcg/mL injection solution RxNorm: 592099 1Milliliter 10/28/2017 No longer Active cyanocobalamin (vit B-12) 1,000 mcg/mL injection solution RxNorm: 367780 Milliliter 09/29/2017 No longer Active cyanocobalamin (vit B-12) 1,000 mcg/mL injection solution RxNorm: 171043 Milliliter 09/02/2017 No longer Active cyanocobalamin (vit B-12) 1,000 mcg/mL injection solution RxNorm: 645902 Milliliter 08/04/2017 No longer Active cyanocobalamin (vit B-12) 1,000 mcg/mL injection solution RxNorm: 941553 1Milliliter 07/01/2017 No longer Active cyanocobalamin (vit B-12) 1,000 mcg/mL injection solution RxNorm: 396139 Milliliter 05/30/2017 No longer Active cyanocobalamin (vit B-12) 1,000 mcg/mL injection solution RxNorm: 660697 1Milliliter 2017 No longer Active cyanocobalamin (vit B-12) 1,000 mcg/mL injection solution RxNorm: 546234 Milliliter 03/31/2017 No longer Active cyanocobalamin (vit B-12) 1,000 mcg/mL injection solution RxNorm: 977138 Milliliter 02/28/2017 No longer Active cyanocobalamin (vit B-12) 1,000 mcg/mL injection solution RxNorm: 159952 Milliliter 02/03/2017 No longer Active cyanocobalamin (vit B-12) 1,000 mcg/mL injection solution RxNorm: 329561 1Milliliter 12/30/2016 No longer Active cyanocobalamin (vit B-12) 1,000 mcg/mL injection solution RxNorm: 373993 1Milliliter 12/02/2016 No longer Active cyanocobalamin (vit B-12) 1,000 mcg/mL injection solution RxNorm: 101992 Milliliter 10/29/2016 No longer Active cyanocobalamin (vit B-12) 1,000 mcg/mL injection solution RxNorm: 928983 1Milliliter 10/01/2016 No longer Active cyanocobalamin (vit B-12) 1,000 mcg/mL injection solution RxNorm: 084596 Milliliter 09/02/2016 No longer Active cyanocobalamin (vit B-12) 1,000 mcg/mL injection solution RxNorm: 664009 Milliliter 08/05/2016 No longer Active cyanocobalamin (vit B-12) 1,000 mcg/mL injection solution RxNorm: 803794 1Milliliter 07/02/2016 No longer Active cyanocobalamin (vit B-12) 1,000 mcg/mL injection solution RxNorm: 349453 Milliliter 06/03/2016 No longer Active cyanocobalamin (vit B-12) 1,000 mcg/mL injection solution RxNorm: 949223 Milliliter 2016 No longer Active cyanocobalamin (vit B-12) 1,000 mcg/mL injection solution RxNorm: 734534 Milliliter 04/01/2016 No longer Active cyanocobalamin (vit B-12) 1,000 mcg/mL injection solution RxNorm: 747915 1Milliliter 03/05/2016 No longer Active cyanocobalamin (vit B-12) 1,000 mcg/mL injection solution RxNorm: 357342 Milliliter 01/29/2016 No longer Active cyanocobalamin (vit B-12) 1,000 mcg/mL injection solution RxNorm: 098528 Milliliter 01/02/2016 No longer Active cyanocobalamin (vit B-12) 1,000 mcg/mL injection solution RxNorm: 430886 Milliliter 10/30/2015 No longer Active cyanocobalamin (B12)-cobamamide 5,000 mcg-100 mcg sublingual tablet RxNorm: 789251 Tablet 10/02/2015 No longer Active cyanocobalamin (vit B-12) 1,000 mcg/mL injection solution RxNorm: 925965 Milliliter 08/29/2015 No longer Active cyanocobalamin (vit B-12) 1,000 mcg/mL injection solution RxNorm: 657747 Milliliter 07/31/2015 No longer Active cyanocobalamin (vit B-12) 1,000 mcg/mL injection solution RxNorm: 795148 Milliliter 06/05/2015 No longer Active cyanocobalamin (vit B-12) 1,000 mcg/mL injection solution RxNorm: 413212 Milliliter 05/01/2015 No longer Active cyanocobalamin (vit B-12) 1,000 mcg/mL injection solution RxNorm: 509795 Milliliter 04/03/2015 No longer Active cyanocobalamin (vit B-12) 1,000 mcg/mL injection solution RxNorm: 249217 Milliliter 02/28/2015 No longer Active cyanocobalamin (vit B-12) 1,000 mcg/mL injection solution RxNorm: 646141 Milliliter 01/30/2015 No longer Active cyanocobalamin (vit B-12) 1,000 mcg/mL injection solution RxNorm: 617315 1Milliliter 01/02/2015 No longer Active cyanocobalamin (vit B-12) 1,000 mcg/mL injection solution RxNorm: 201358 1Milliliter 11/28/2014 No longer Active cyanocobalamin (vit B-12) 1,000 mcg/mL injection solution RxNorm: 271997 Milliliter 10/31/2014 No longer Active cyanocobalamin (vit B-12) 1,000 mcg/mL injection solution RxNorm: 127343 1Milliliterdaily 10/03/2014 No longer Active cyanocobalamin (vit B-12) 1,000 mcg/mL injection solution RxNorm: 736297 Milliliter 08/30/2014 No longer Active cyanocobalamin (vit B-12) 1,000 mcg/mL injection solution RxNorm: 353411 Milliliter 08/02/2014 No longer Active cyanocobalamin (vit B-12) 1,000 mcg/mL injection kit RxNorm: 930734 Milliliter 07/04/2014 No longer Active cyanocobalamin (vit B-12) 1,000 mcg/mL injection solution RxNorm: 827925 Milliliter 05/30/2014 No longer Active cyanocobalamin (vit B-12) 1,000 mcg/mL injection solution RxNorm: 238630 Milliliter 05/02/2014 No longer Active cyanocobalamin (vit B-12) 1,000 mcg/mL injection solution RxNorm: 107433 Milliliter 04/05/2014 No longer Active cyanocobalamin (vit B-12) 1,000 mcg/mL injection solution RxNorm: 154144 Milliliter 03/07/2014 No longer Active cyanocobalamin (vit B-12) 1,000 mcg/mL injection solution RxNorm: 966215 1Milliliter 02/01/2014 No longer Active cyanocobalamin (vit B-12) 1,000 mcg/mL injection solution RxNorm: 641399 1Milliliter 12/30/2013 No longer Active cyanocobalamin (vit B-12) 1,000 mcg/mL injection solution RxNorm: 140261 Milliliter 11/30/2013 No longer Active cyanocobalamin (vit B-12) 1,000 mcg/mL injection solution RxNorm: 112862 1Milliliter 11/02/2013 No longer Active Vitamin B-12 1,000 mcg/mL injection solution RxNorm: 572924 Milliliter 08/31/2013 No longer Active Vitamin B-12 1,000 mcg/mL injection solution RxNorm: 354128 1Milliliter 08/04/2013 No longer Active Vitamin B-12 1,000 mcg/mL injection solution RxNorm: 734109 Milliliter 07/06/2013 No longer Active cyanocobalamin (vit B-12) 1,000 mcg/mL injection solution RxNorm: 007695 Milliliter 05/31/2013 No longer Active cyanocobalamin (vit B-12) 1,000 mcg/mL injection kit RxNorm: 193210 Milliliter 05/04/2013 No longer Active cyanocobalamin (vitamin B-12) 1,000 mcg/mL Injection RxNorm: 716451 Milliliter 03/30/2013 No longer Active cyanocobalamin (vitamin B-12) 1,000 mcg/mL Injection RxNorm: 641268 Milliliter 02/02/2013 No longer Active cyanocobalamin (vitamin B-12) 1,000 mcg/mL Injection RxNorm: 670905 Milliliter 12/29/2012 No longer Active cyanocobalamin (vitamin B-12) 1,000 mcg/mL Injection RxNorm: 363930 Milliliter 12/01/2012 No longer Active Vitamin B-12 1,000 mcg tablet RxNorm: 950418 Tablet 11/03/2012 No longer Active Vitamin B-12 1,000 mcg/mL Injection RxNorm: 563880 1Milliliter 09/30/2012 No longer Active Vitamin B-12 1,000 mcg/mL Injection RxNorm: 799799 1Milliliter 09/08/2012 No longer Active cyanocobalamin (vitamin B-12) 1,000 mcg/mL Injection RxNorm: 199696 1Milliliter 08/25/2012 No longer Active cyanocobalamin (vitamin B-12) 1,000 mcg/mL Injection RxNorm: 288183 1Milliliter 08/11/2012 No longer Active cyanocobalamin (vitamin B-12) 1,000 mcg/mL Injection RxNorm: 341549 1Milliliter 07/21/2012 No longer Active Vitamin B-12 1,000 mcg/mL Injection RxNorm: 462464 Milliliter 07/07/2012 No longer Active cyanocobalamin (vitamin B-12) 1,000 mcg/mL Injection RxNorm: 689303 1Milliliter 06/25/2012 No longer Active Vitamin B-12 1,000 mcg/mL Injection RxNorm: 264251 1Milliliter 06/09/2012 No longer Active Vitamin B-12 1,000 mcg/mL Injection RxNorm: 505676 Milliliter 05/25/2012 No longer Active Vitamin B-12 1,000 mcg/mL Injection RxNorm: 105530 Milliliter 05/12/2012 No longer Active Vitamin B-12 1,000 mcg/mL Injection RxNorm: 535700 Milliliter 04/20/2012 No longer Active Vitamin B-12 1,000 mcg/mL Injection RxNorm: 687882 Milliliter 04/07/2012 No longer Active Vitamin B-12 1,000 mcg/mL Injection RxNorm: 881915 Milliliter 03/10/2012 No longer Active Vitamin B-12 1,000 mcg/mL Injection RxNorm: 912564 Milliliter 02/18/2012 No longer Active Vitamin B-12 1,000 mcg/mL Injection RxNorm: 150960 Milliliter 02/04/2012 No longer Active Vitamin B-12 1,000 mcg/mL Injection RxNorm: 619775 Milliliter 01/21/2012 No longer Active Vitamin B-12 1,000 mcg/mL Injection RxNorm: 690939 Milliliter 01/07/2012 No longer Active Vitamin B-12 1,000 mcg/mL Injection RxNorm: 096874 Milliliter 12/17/2011 No longer Active Immunizations Vaccine [...] 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 ICD-9: 281.0 07/31/2018 Other vitamin B12 deficiency anemias ICD-10: D51.8 ICD-9: 281.1 07/01/2018 Encounter for immunization ICD-10: Z23 ICD-9: V04.81 [...] Code Item Item Code Result Date B12 [id number] B12 637.00 pg/ml 07/31/2015 FOLIC ACID 5311292 FOLIC ACID >24.0 NG/ML 08/25/2012 VIT B 12 7142103 VIT B 12 1591 PG/ML 08/25/2012 HOMOCYS 3782292 HOMOCYS 6.8 UMOL/L 08/25/2012 TSH 1320745 TSH 1.386 uIU/ML 07/07/2012 CBC 6143613 WBC 6.4 10e9/L 07/07/2012 CBC 4621697 RBC 4.92 10e12/L 07/07/2012 CBC 3997856 HGB 15.0 g/dL 07/07/2012 CBC 6504234 HCT DET 43.3 % 07/07/2012 CBC 7048644 MCV 88.0 fL 07/07/2012 CBC 9274272 MCH 30.5 pg 07/07/2012 CBC 2772211 MCHC 34.6 g/dL 07/07/2012 CBC 3007367 PLT 180 10e9/L 07/07/2012 CBC 5288784 MPV 10.0 fL 07/07/2012 CBC 1246774 KENRICK % 59.0 % 07/07/2012 CBC [id number] LY % 24.1 % 07/07/2012 CBC 4816770 MON % 12.5 % 07/07/2012 CBC 3843702 EOS % 4.1 % 07/07/2012 CBC 1138031 BASO % 0.3 % 07/07/2012 CBC 3919444 RDW 13.4 % 07/07/2012 CBC 9322659 ABS KENRICK 3.78 10e9/L 07/07/2012 CBC 4150797 ABS LYMPH 1.54 10e9/L 07/07/2012 CBC 7669631 ABS MONO 0.80 10e9/L 07/07/2012 CBC 8763321 ABS EOS 0.26 10e9/L 07/07/2012 CBC 6749928 ABS BASO 0.02 10e9/L 07/07/2012 CBC 9705550 RDW-SD 42.9 fL 07/07/2012 CHEM 14 6797306 AST 29 U/L 07/07/2012 CHEM 14 5420033 ALT 29 U/L 07/07/2012 CHEM 14 0662864 BUN 9 MG/DL 07/07/2012 CHEM 14 2469192 ALBUMIN 4.1 GM/DL 07/07/2012 CHEM 14 0867207 CHLORIDE 103 MMOL/L 07/07/2012 CHEM 14 7458210 BILI TOT 0.3 MG/DL 07/07/2012 CHEM 14 2059218 ALK PHOS 88 U/L 07/07/2012 CHEM 14 2806153 SODIUM 141 MMOL/L 07/07/2012 CHEM 14 7778556 CREATININE 1.38 MG/DL 07/07/2012 CHEM 14 3671897 CALCIUM 9.3 MG/DL 07/07/2012 CHEM 14 8913833 POTASSIUM 3.7 MMOL/L 07/07/2012 CHEM 14 4860259 PROT TOT 6.4 GM/DL 07/07/2012 CHEM 14 4427111 GLUCOSE 76 MG/DL 07/07/2012 CHEM 14 8575071 BICARB 28 MMOL/L 07/07/2012 CHEM 14 3467870 ANION GAP 10 MMOL/L 07/07/2012 GFR CALC 5637242 GFR AA >60 ML/MIN 07/07/2012 GFR CALC 0697107 GFR NON-AA 52.0L ML/MIN 07/07/2012 B12 FOLAT 4655172 VIT B 12 211 PG/ML 12/10/2011 B12 FOLAT 3824844 FOLIC ACID 3.9 NG/ML 12/10/2011 GFR CALC 1735049 GFR AA >60 ML/MIN 12/10/2011 GFR CALC 7666866 GFR NON-AA >60 ML/MIN 12/10/2011 CPK 5943193 CPK 135 U/L 12/10/2011 CHEM 14 4679804 AST 62 U/L 12/10/2011 CHEM 14 3562473 ALT 114 U/L 12/10/2011 CHEM 14 5591731 BUN 10 MG/DL 12/10/2011 CHEM 14 4401851 ALBUMIN 3.7 GM/DL 12/10/2011 CHEM 14 5987711 CHLORIDE 103 MMOL/L 12/10/2011 CHEM 14 0951633 BILI TOT 0.5 MG/DL 12/10/2011 CHEM 14 0069115 ALK PHOS 129 U/L 12/10/2011 CHEM 14 0240770 SODIUM 140 MMOL/L 12/10/2011 CHEM 14 3807392 CREATININE 1.17 MG/DL 12/10/2011 CHEM 14 8861121 CALCIUM 8.8 MG/DL 12/10/2011 CHEM 14 1666843 POTASSIUM 3.4 MMOL/L 12/10/2011 CHEM 14 1038625 PROT TOT 5.8 GM/DL 12/10/2011 CHEM 14 8363333 GLUCOSE 84 MG/DL 12/10/2011 CHEM 14 7563892 BICARB 26 MMOL/L 12/10/2011 CHEM 14 8192018 ANION GAP 11 MMOL/L 12/10/2011 URINALYSIS NONAUTO W/O SCOPE 86957 Specific [place] 1.005 DateTime(Free Text in Aprima) URINALYSIS NONAUTO W/O SCOPE 08531 PH 6 DateTime(Free Text in Aprima) URINALYSIS NONAUTO W/O SCOPE 26693 GLUCOSE neg DateTime(Free Text in Aprima) URINALYSIS NONAUTO W/O SCOPE 18740 Protein neg DateTime(Free Text in Aprima) URINALYSIS NONAUTO W/O SCOPE 40750 Blood neg DateTime(Free Text in Aprima) URINALYSIS NONAUTO W/O SCOPE 53086 Bilirubin neg DateTime(Free Text in Aprima) URINALYSIS NONAUTO W/O SCOPE 25494 Ketones neg DateTime(Free Text in Aprima) URINALYSIS NONAUTO W/O SCOPE 17845 Urobilinogen neg DateTime(Free Text in Aprima) URINALYSIS NONAUTO W/O SCOPE 09067 Nitrite neg DateTime(Free Text in Aprima) URINALYSIS NONAUTO W/O SCOPE 80172 Leukocytes neg DateTime(Free Text in Aprima) URINALYSIS NONAUTO W/O SCOPE 51121 Specific [place] 1.010 DateTime(Free Text in Aprima) URINALYSIS NONAUTO W/O SCOPE 62312 PH 6.5 DateTime(Free Text in Aprima) URINALYSIS NONAUTO W/O SCOPE 61613 GLUCOSE neg DateTime(Free Text in Aprima) URINALYSIS NONAUTO W/O SCOPE 94351 Protein neg DateTime(Free Text in Aprima) URINALYSIS NONAUTO W/O SCOPE 36562 Blood neg DateTime(Free Text in ) URINALYSIS NONAUTO W/O SCOPE 61098 Bilirubin neg DateTime(Free Text in ) URINALYSIS NONAUTO W/O SCOPE 84756 Ketones neg DateTime(Free Text in Apr) URINALYSIS NONAUTO W/O SCOPE 42061 Urobilinogen neg DateTime(Free Text in Apr) URINALYSIS NONAUTO W/O SCOPE 08525 Nitrite neg DateTime(Free Text in ) URINALYSIS NONAUTO W/O SCOPE 41942 Leukocytes neg DateTime(Free Text in ) Review [...] recall three words at five minutes 11/05/2017 [facility] exam points Full Exam - General [...] recall three words at five minutes 01/16/2015 [facility] exam points Full Exam - General [...] recall three words at five minutes 03/02/2013 [facility] exam points Full Exam - Dermatology [...] recall three words at five minutes 07/07/2012 [facility] Sat exam points Full Exam - General 1995 [...] recall three words at five minutes 01/07/2012 [facility] exam points Full Exam [...] disease 12/17/2011 None Full Exam - General 1995 Musculoskeletal spine, ribs and pelvis Posture: lordosis 12/17/2011 None Full Exam - General 1995 Musculoskeletal head and neck Overall: head atraumatic 12/17/2011 None Full Exam - General 1994 Musculoskeletal head and neck Overall: cervical spine benign 12/17/2011 None Full Exam - General 1995 [...] recall three words at five minutes 12/17/2011 [facility] exam points Full Exam - General [...] clubbing 12/10/2011 None Full Exam - General 1995 Cardiovascular extremities Edema present: pitting 12/10/2011 None Full Exam - General 1994 Cardiovascular extremities Edema present: severity 1+ - 4+: 1 12/10/2011 None Full Exam - General 1995 Cardiovascular extremities Edema present: to knees 12/10/2011 None Full Exam - General 1995 [...] recall three words at five minutes 12/10/2011 [facility] exam points Full Exam [...] recall three words at five minutes 11/26/2011 [facility] exam points Procedures Procedure Codes Date THER/PROPH/DIAG INJ SC/IM CPT-4: 10261 08/28/2018 VITAMIN B12 INJECTION CPT- 4: J3420 08/28/2018 THER/PROPH/DIAG INJ SC/IM CPT-4: 57829 07/31/2018 VITAMIN B12 INJECTION CPT- 4: J3420 07/31/2018 THER/PROPH/DIAG INJ SC/IM CPT-4: 55263 07/01/2018 VITAMIN B12 INJECTION CPT- 4: J3420 07/01/2018 ADMIN INFLUENZA VIRUS VAC CPT-4: G0008 2018 FLU VACC PRSV FREE INC ANTIG CPT-4: 03826 2018 THER/PROPH/DIAG INJ SC/IM CPT-4: 32064 2018 VITAMIN B12 INJECTION CPT- 4: J3420 2018 THER/PROPH/DIAG INJ SC/IM CPT-4: 28209 03/30/2018 VITAMIN B12 INJECTION CPT- 4: J3420 03/30/2018 THER/PROPH/DIAG INJ SC/IM CPT-4: 80709 03/03/2018 VITAMIN B12 INJECTION CPT- 4: J3420 03/03/2018 THER/PROPH/DIAG INJ SC/IM CPT-4: 10656 01/28/2018 VITAMIN B12 INJECTION CPT- 4: J3420 01/28/2018 THER/PROPH/DIAG INJ SC/IM CPT-4: 19927 12/29/2017 VITAMIN B12 INJECTION CPT- 4: J3420 12/29/2017 THER/PROPH/DIAG INJ SC/IM CPT-4: 46194 12/01/2017 VITAMIN B12 INJECTION CPT- 4: J3420 12/01/2017 VITAMIN B12 INJECTION CPT- 4: J3420 10/28/2017 THER/PROPH/DIAG INJ SC/IM CPT-4: 60439 10/28/2017 THER/PROPH/DIAG INJ SC/IM CPT-4: 61764 09/29/2017 VITAMIN B12 INJECTION CPT- 4: J3420 09/29/2017 THER/PROPH/DIAG INJ SC/IM CPT-4: 51447 09/02/2017 VITAMIN B12 INJECTION CPT- 4: J3420 09/02/2017 THER/PROPH/DIAG INJ SC/IM CPT-4: 07265 08/04/2017 VITAMIN B12 INJECTION CPT- 4: J3420 08/04/2017 THER/PROPH/DIAG INJ SC/IM CPT-4: 29706 07/01/2017 VITAMIN B12 INJECTION CPT- 4: J3420 07/01/2017 THER/PROPH/DIAG INJ SC/IM CPT-4: 43002 05/30/2017 VITAMIN B12 INJECTION CPT- 4: J3420 05/30/2017 THER/PROPH/DIAG INJ SC/IM CPT-4: 64439 2017 ADMIN INFLUENZA VIRUS VAC CPT-4: G0008 2017 TOBACCO-USE WATER [employer]OURCES PROJECT MANAGER 3-[address]: 813598803 CPT-4: G0436 2017 VITAMIN B12 INJECTION CPT- 4: J3420 2017 FLU VACC PRSV FREE INC ANTIG CPT-4: 13246 2017 TOBACCO-USE WATER RESOURCES PROJECT MANAGER 3-[address]: 373678332 CPT-4: G0436 03/31/2017 VITAMIN B12 INJECTION CPT- 4: J3420 03/31/2017 THER/PROPH/DIAG INJ SC/IM CPT-4: 67087 02/28/2017 VITAMIN B12 INJECTION CPT- 4: J3420 02/28/2017 THER/PROPH/DIAG INJ SC/IM CPT-4: 33405 02/03/2017 VITAMIN B12 INJECTION CPT- 4: J3420 02/03/2017 TOBACCO-USE WATER RESOURCES PROJECT MANAGER 3-[address]: 848339223 CPT-4: G0436 12/30/2016 THER/PROPH/DIAG INJ SC/IM CPT-4: 22080 12/30/2016 VITAMIN B12 INJECTION CPT- 4: J3420 12/30/2016 THER/PROPH/DIAG INJ SC/IM CPT-4: 61833 12/02/2016 VITAMIN B12 INJECTION CPT- 4: J3420 12/02/2016 THER/PROPH/DIAG INJ SC/IM CPT-4: 81948 10/29/2016 VITAMIN B12 INJECTION CPT- 4: J3420 10/29/2016 THER/PROPH/DIAG INJ SC/IM CPT-4: 34834 10/01/2016 VITAMIN B12 INJECTION CPT- 4: J3420 10/01/2016 TOBACCO-USE WATER RESOURCES PROJECT MANAGER 3-[address]: 193045801 CPT-4: G0436 09/02/2016 VITAMIN B12 INJECTION CPT- 4: J3420 09/02/2016 THER/PROPH/DIAG INJ SC/IM CPT-4: 02651 09/02/2016 THER/PROPH/DIAG INJ SC/IM CPT-4: 27727 08/05/2016 VITAMIN B12 INJECTION CPT- 4: J3420 08/05/2016 THER/PROPH/DIAG INJ SC/IM CPT-4: 35439 07/02/2016 VITAMIN B12 INJECTION CPT- 4: J3420 07/02/2016 VITAMIN B12 INJECTION CPT- 4: J3420 06/03/2016 THER/PROPH/DIAG INJ SC/IM CPT-4: 43354 06/03/2016 THER/PROPH/DIAG INJ SC/IM CPT-4: 53546 2016 VITAMIN B12 INJECTION CPT- 4: J3420 2016 THER/PROPH/DIAG INJ SC/IM CPT-4: 69273 04/01/2016 VITAMIN B12 INJECTION CPT- 4: J3420 04/01/2016 VITAMIN B12 INJECTION CPT- 4: J3420 03/05/2016 THER/PROPH/DIAG INJ SC/IM CPT-4: 14012 03/05/2016 TOBACCO-USE WATER RESOURCES PROJECT MANAGER 3-[address]: 318196386 CPT-4: G0436 01/29/2016 THER/PROPH/DIAG INJ SC/IM CPT-4: 07390 01/29/2016 VITAMIN B12 INJECTION CPT- 4: J3420 01/29/2016 THER/PROPH/DIAG INJ SC/IM CPT-4: 42654 01/02/2016 VITAMIN B12 INJECTION CPT- 4: J3420 01/02/2016 VITAMIN B12 INJECTION CPT- 4: J3420 12/04/2015 THER/PROPH/DIAG INJ SC/IM CPT-4: 67075 12/04/2015 THER/PROPH/DIAG INJ SC/IM CPT-4: 22106 10/30/2015 VITAMIN B12 INJECTION CPT- 4: J3420 10/30/2015 PPPS, SUBSEQ VISIT CPT- 4: G0439 10/11/2015 TOBACCO-USE WATER RESOURCES PROJECT MANAGER 3-[address]: 539605558 CPT-4: G0436 10/11/2015 TOBACCO-USE WATER RESOURCES PROJECT MANAGER 3-[address]: 264164696 CPT-4: G0436 10/02/2015 THER/PROPH/DIAG INJ SC/IM CPT-4: 49571 10/02/2015 VITAMIN B12 INJECTION CPT- 4: J3420 10/02/2015 THER/PROPH/DIAG INJ SC/IM CPT-4: 04848 08/29/2015 VITAMIN B12 INJECTION CPT- 4: J3420 08/29/2015 THER/PROPH/DIAG INJ SC/IM CPT-4: 32602 07/31/2015 VITAMIN B12 INJECTION CPT- 4: J3420 07/31/2015 THER/PROPH/DIAG INJ SC/IM CPT-4: 82300 07/03/2015 VITAMIN B12 INJECTION CPT- 4: J3420 07/03/2015 THER/PROPH/DIAG INJ SC/IM CPT-4: 59112 06/05/2015 VITAMIN B12 INJECTION CPT- 4: J3420 06/05/2015 VITAMIN B12 INJECTION CPT- 4: J3420 05/01/2015 THER/PROPH/DIAG INJ SC/IM CPT-4: 75461 05/01/2015 THER/PROPH/DIAG INJ SC/IM CPT-4: 48842 04/03/2015 VITAMIN B12 INJECTION CPT- 4: J3420 04/03/2015 THER/PROPH/DIAG INJ SC/IM CPT-4: 79483 02/28/2015 VITAMIN B12 INJECTION CPT- 4: J3420 02/28/2015 THER/PROPH/DIAG INJ SC/IM CPT-4: 09587 01/30/2015 VITAMIN B12 INJECTION CPT- 4: J3420 01/30/2015 VITAMIN B12 INJECTION CPT- 4: J3420 01/02/2015 THER/PROPH/DIAG INJ SC/IM CPT-4: 12229 01/02/2015 THER/PROPH/DIAG INJ SC/IM CPT-4: 27530 11/28/2014 VITAMIN B12 INJECTION CPT- 4: J3420 11/28/2014 THER/PROPH/DIAG INJ SC/IM CPT-4: 04923 10/31/2014 VITAMIN B12 INJECTION CPT- 4: J3420 10/31/2014 THER/PROPH/DIAG INJ SC/IM CPT-4: 02496 10/03/2014 VITAMIN B12 INJECTION CPT- 4: J3420 10/03/2014 THER/PROPH/DIAG INJ SC/IM CPT-4: 74989 08/30/2014 VITAMIN B12 INJECTION CPT- 4: J3420 08/30/2014 THER/PROPH/DIAG INJ SC/IM CPT-4: 61833 08/02/2014 VITAMIN B12 INJECTION CPT- 4: J3420 08/02/2014 THER/PROPH/DIAG INJ SC/IM CPT-4: 35277 07/04/2014 VITAMIN B12 INJECTION CPT- 4: J3420 07/04/2014 THER/PROPH/DIAG INJ SC/IM CPT-4: 47909 05/30/2014 VITAMIN B12 INJECTION CPT- 4: J3420 05/30/2014 THER/PROPH/DIAG INJ SC/IM CPT-4: 15670 05/02/2014 VITAMIN B12 INJECTION CPT- 4: J3420 05/02/2014 THER/PROPH/DIAG INJ SC/IM CPT-4: 45257 04/05/2014 THER/PROPH/DIAG INJ SC/IM CPT-4: 01026 03/07/2014 VITAMIN B12 INJECTION CPT- 4: J3420 03/07/2014 THER/PROPH/DIAG INJ SC/IM CPT-4: 84948 02/01/2014 VITAMIN B12 INJECTION CPT- 4: J3420 02/01/2014 VITAMIN B12 INJECTION CPT- 4: J3420 12/30/2013 THER/PROPH/DIAG INJ SC/IM CPT-4: 53285 12/30/2013 THER/PROPH/DIAG INJ SC/IM CPT-4: 08285 11/30/2013 VITAMIN B12 INJECTION CPT- 4: J3420 11/30/2013 THER/PROPH/DIAG INJ SC/IM CPT-4: 40958 11/02/2013 VITAMIN B12 INJECTION CPT- 4: J3420 11/02/2013 THER/PROPH/DIAG INJ SC/IM CPT-4: 47760 08/31/2013 VITAMIN B12 INJECTION CPT- 4: J3420 08/31/2013 THER/PROPH/DIAG INJ SC/IM CPT-4: 53047 08/04/2013 VITAMIN B12 INJECTION CPT- 4: J3420 08/04/2013 VITAMIN B12 INJECTION CPT- 4: J3420 07/06/2013 THER/PROPH/DIAG INJ SC/IM CPT-4: 91283 07/06/2013 THER/PROPH/DIAG INJ SC/IM CPT-4: 88502 05/31/2013 VITAMIN B12 INJECTION CPT- 4: J3420 05/31/2013 ADMIN INFLUENZA VIRUS VAC CPT-4: G0008 05/04/2013 FLULAVAL VACC, 3 YRS & >, IM CPT-4: Q2036 05/04/2013 THER/PROPH/DIAG INJ SC/IM CPT-4: 84118 05/04/2013 VITAMIN B12 INJECTION CPT- 4: J3420 05/04/2013 THER/PROPH/DIAG INJ SC/IM CPT-4: 23693 03/30/2013 VITAMIN B12 INJECTION CPT- 4: J3420 03/30/2013 THER/PROPH/DIAG INJ SC/IM CPT-4: 86089 03/02/2013 VITAMIN B12 INJECTION CPT- 4: J3420 03/02/2013 [id number] EST. PATIENT, LEVEL IV CPT-4: 54225 03/02/2013 THER/PROPH/DIAG INJ SC/IM CPT-4: 76336 02/02/2013 VITAMIN B12 INJECTION CPT- 4: J3420 02/02/2013 THER/PROPH/DIAG INJ SC/IM CPT-4: 91725 12/29/2012 VITAMIN B12 INJECTION CPT- 4: J3420 12/29/2012 TRIAMCINOLONE ACET INJ NOS CPT-4: J3301 12/01/2012 VITAMIN B12 INJECTION CPT- 4: J3420 12/01/2012 VITAMIN B12 INJECTION CPT- 4: J3420 11/03/2012 THER/PROPH/DIAG INJ SC/IM CPT-4: 20717 11/03/2012 THER/PROPH/DIAG INJ SC/IM CPT-4: 72244 09/30/2012 VITAMIN B12 INJECTION CPT- 4: J3420 09/30/2012 PRESCRIP TRANSMIT VIA ERX SY CPT-4: G8553 09/30/2012 VITAMIN B12 INJECTION CPT- 4: J3420 09/08/2012 THER/PROPH/DIAG INJ SC/IM CPT-4: 31230 09/08/2012 THER/PROPH/DIAG INJ SC/IM CPT-4: 83177 08/25/2012 ROUTINE VENIPUNCTURE CPT- 4: 60150 08/25/2012 VITAMIN B12 INJECTION CPT- 4: J3420 08/25/2012 THER/PROPH/DIAG INJ SC/IM CPT-4: 94709 08/11/2012 VITAMIN B12 INJECTION CPT- 4: J3420 08/11/2012 VITAMIN B12 INJECTION CPT- 4: J3420 07/21/2012 THER/PROPH/DIAG INJ SC/IM CPT-4: 40490 07/21/2012 THER/PROPH/DIAG INJ SC/IM CPT-4: 88972 07/07/2012 VITAMIN B12 INJECTION CPT- 4: J3420 07/07/2012 ROUTINE VENIPUNCTURE CPT- 4: 57141 07/07/2012 VITAMIN B12 INJECTION CPT- 4: J3420 06/25/2012 THER/PROPH/DIAG INJ SC/IM CPT-4: 82514 06/25/2012 VITAMIN B12 INJECTION CPT- 4: J3420 06/09/2012 THER/PROPH/DIAG INJ SC/IM CPT-4: 67478 06/09/2012 VITAMIN B12 INJECTION CPT- 4: J3420 05/25/2012 THER/PROPH/DIAG INJ SC/IM CPT-4: 00402 05/25/2012 VITAMIN B12 INJECTION CPT- 4: J3420 05/12/2012 THER/PROPH/DIAG INJ SC/IM CPT-4: 19853 05/12/2012 VITAMIN B12 INJECTION CPT- 4: J3420 04/20/2012 THER/PROPH/DIAG INJ SC/IM CPT-4: 89766 04/20/2012 THER/PROPH/DIAG INJ SC/IM CPT-4: 06444 04/07/2012 VITAMIN B12 INJECTION CPT- 4: J3420 04/07/2012 VITAMIN B12 INJECTION CPT- 4: J3420 03/10/2012 THER/PROPH/DIAG INJ SC/IM CPT-4: 44523 03/10/2012 VITAMIN B12 INJECTION CPT- 4: J3420 02/18/2012 THER/PROPH/DIAG INJ SC/IM CPT-4: 77306 02/18/2012 THER/PROPH/DIAG INJ SC/IM CPT-4: 98629 02/04/2012 VITAMIN B12 INJECTION CPT- 4: J3420 02/04/2012 THER/PROPH/DIAG INJ SC/IM CPT-4: 48700 01/21/2012 VITAMIN B12 INJECTION CPT- 4: J3420 01/21/2012 VITAMIN B12 INJECTION CPT- 4: J3420 01/07/2012 VITAMIN B12 INJECTION CPT- 4: J3420 12/17/2011 URINALYSIS NONAUTO W/O SCOPE CPT-4: 14188 12/10/2011 ROUTINE VENIPUNCTURE CPT- 4: 80843 12/10/2011 URINALYSIS NONAUTO W/O SCOPE CPT-4: 86145 11/26/2011 Vital Signs Date Vital 11/05/2017 Blood Pressure 1: 136/82 Code: 8480-6 BMI: 25.7 Code: 29603-1 Heart Rate 1: 78 bpm Height: 5'7" SpO2: 97% Weight: 164 lbs 10/28/2017 Height: 5'7" 12/18/2015 Blood Pressure 1: 140/68 Code: 8480-6 BMI: 25.7 Code: 33811-7 Heart Rate 1: 83 bpm Height: 5'7" SpO2: 95% Weight: 164 lbs 10/11/2015 Blood Pressure 1: 128/80 Code: 8480-6 BMI: 26.0 Code: 28594-4 Heart Rate 1: 80 bpm Height: 5'7" SpO2: 97% Waist Measure (cm): 89 cm Weight: 166 lbs 01/16/2015 Blood Pressure 1: 122/84 Code: 8480-6 BMI: 25.7 Code: 66358-0 Heart Rate 1: 68 bpm Height: 5'7" SpO2: 95% Weight: 164 lbs 08/02/2014 Blood Pressure 1: 140/86 Code: 8480-6 BMI: 25.1 Code: 08253-9 Heart Rate 1: 64 bpm Height: 5'7" Weight: 160 lbs 03/02/2013 Blood Pressure 1: 108/74 Code: 8480-6 BMI: 28.3 Code: 98250-3 Heart Rate 1: 80 bpm Height: 5'7" Weight: 181 lbs 09/30/2012 Blood Pressure 1: 126/74 Code: 8480-6 Heart Rate 1: 64 bpm Weight: 07/07/2012 Blood Pressure 1: 130/84 Code: 8480-6 BMI: 26.6 Code: 52007-7 Heart Rate 1: 80 bpm Height: 5'7" [...] 1: 110/68 Code: 8480-6 BMI: 25.7 Code: 52766-3 Heart Rate 1: 68 bpm Height: 5'7" [...] data Encounters Encounter Performer Location Codes Date 90010 EST. PATIENT, LEVEL III Diagnosis: Other schizophrenia[ICD10: F20.89] Diagnosis: Generalized anxiety disorder[ICD10: F41.1] Diagnosis: Major depressive disorder, single episode, moderate[ICD10: F32.1] Susan Vitale MD, [facility] CPT-4: 91742 11/05/2017 22851 EST. PATIENT, LEVEL III Diagnosis: Encounter for follow-up examination after completed treatment for conditions other than malignant neoplasm[ICD10: Z09] [facility] CPT-4: 13694 12/18/2015 11778 EST. PATIENT, LEVEL IV Diagnosis: Cellulitis of right lower limb[ICD10: L03.115] Diagnosis: Vitamin B12 deficiency anemia due to intrinsic factor deficiency[ICD10: D51.0] Loren Vitale MD, [facility] CPT-4: 61935 12/04/2015 ([id number]) Miscellaneous no charge Diagnosis: Vitamin B deficiency, unspecified[ICD10: E53.9] Loren Vitale MD, [facility] CPT-4: 61828 07/31/2015 ([id number]) 15838 EST. PATIENT, LEVEL IV Diagnosis: Schizophrenia[ICD9: 295.90] Diagnosis: DEPRESSIVE DISORDER NEC[ICD9: 311] Diagnosis: Medication dose changed[ICD9: V58.69] Diagnosis: Leg pain[ICD9: 729.5] Loren Vitale MD, [facility] CPT-4: 23996 01/16/2015 ([id number]) 49749 EST. PATIENT, LEVEL III Diagnosis: Rash[ICD9: 782.1] Camille Vitale MD, [facility] CPT-4: 69874 08/02/2014 ([id number]) Miscellaneous no charge Diagnosis: SCHIZO NOS, CHRN[ICD9: 295.92] Loren Vitale MD, [facility] CPT-4: 78833 05/03/2013 ([id number]) 81100 EST. PATIENT, LEVEL III Diagnosis: Rash[ICD9: 782.1] Diagnosis: B-COMPLEX DEFIC NEC[ICD9: 266.2] Loren Vitale MD, [facility] CPT-4: 98991 09/30/2012 ([id number]) 89035 EST. PATIENT, LEVEL IV Diagnosis: SCHIZO NOS, CHRN[ICD9: 295.92] Diagnosis: DEMEN NOS W/O BEHV DSTRB[ICD9: 294.20] Loren Vitale MD, [facility] CPT-4: 11526 07/07/2012 ([id number]) 13942 EST. PATIENT, LEVEL IV Diagnosis: DEMEN NOS W/O BEHV DSTRB[ICD9: 294.20] Diagnosis: SCHIZO NOS, CHRN[ICD9: 295.92] Diagnosis: Vitamin B 12 deficiency[ICD9: 266.2] Loren Vitale MD, [facility] CPT- 4: 34224 01/07/2012 ([id number]) 37869 EST. PATIENT, LEVEL IV Diagnosis: DEMEN NOS W/O BEHV DSTRB[ICD9: 294.20] Diagnosis: ALTERED MENTAL STATUS[ICD9: 780.97] Diagnosis: Myalgia[ICD9: 729.1] [facility] CPT-4: 69874 12/17/2011 ([id number]) 65106 EST. PATIENT, LEVEL IV Diagnosis: Orthostatic hypotension[ICD9: 458.0] Diagnosis: Hypokalemia[ICD9: 276.8] Diagnosis: DEMEN NOS W/O BEHV DSTRB[ICD9: 294.20] Diagnosis: SCHIZO NOS, CHRN[ICD9: 295.92] Diagnosis: ALTERED MENTAL STATUS[ICD9: 780.97] [facility] CPT-4: 29159 12/10/2011 OFFICE/OUTPATIENT VISIT NEW Diagnosis: Schizophrenia, chronic condition[ICD9: 295.92] Diagnosis: Encounter for long-term (current) use of other high-risk medications[ICD9: V58.69] [facility] CPT-4: 97401 11/26/2011 Plan of Care Planned Activity Notes Codes Status Date Appointment: Injection 08/28/2018 Patient Education: Patient Medication [...] change in current medications. 11/05/2017 [phone] [id number] [facility] 11/05/2017 Patient Education: Patient Medication Summary Completed [...] pain. 12/18/2015 Appointment: [facility] [phone] [id number] ([facility] 12/18/2015 Patient Education: Patient Medication Summary Completed 12/18/2015 Patient Education: Smoking and Tobacco Addiction Completed 12/18/2015 Visit Plan: Abscess/Cellulitis - The patient was instructed in appropriate wound care. The patient was instructed to use the antibiotic ointment as per RX. The patient is to call for any change in symptoms, increase in size of the lesion, increase in pain. 12/04/2015 Appointment: [facility]el[facility] [phone] [facility] (10 min) [facility] 12/04/2015 Patient Education: Patient Medication Summary Completed [...] paperwork for health care surrogate. 10/11/2015 Appointment: [facility] - Annual Wellness Visit 10/11/2015 Patient [...] labs. 01/16/2015 Appointment: [facility]el[facility] [phone] [facility] [place] (15 min) Moderate 01/16/2015 Patient Education: Patient Medication Summary Completed 01/16/2015 Appointment: Injection 01/02/2015 Patient Education: Patient Medication Summary Completed 01/02/2015 Patient Education: Patient Medication Summary Completed 11/28/2014 Patient Education: Patient Medication Summary Completed 10/31/2014 Patient Education: Patient Medication Summary Completed 10/03/2014 Patient Education: Patient Medication Summary Completed 08/30/2014 Visit Plan: Kxmb-cvpezjfn-oxblxjnuqnuuo cream to affected area twice daily as directed-call if rash does not completely resolve B12 deficiency-B12 injection today in the office 08/02/2014 Appointment: Camille Devi [facility]el[facility] [phone] [facility] [place] Sick 08/02/2014 Patient Education: Patient Medication Summary Completed 08/02/2014 Patient Education: Patient Medication Summary Completed 07/04/2014 Patient Education: Patient Medication Summary Completed 05/30/2014 Appointment: Loren Vitale WPtel: [facility] [place] Injection 05/02/2014 Patient Education: Patient Medication Summary Completed 05/02/2014 Patient Education: Patient Medication Summary Completed 04/05/2014 Appointment: Cam[facility]el[facility] [phone] [facility] [place] Injection 03/07/2014 Patient Education: Patient Medication Summary Completed 03/07/2014 Appointment: [facility] WPtel[facility] [phone] [facility] [place] [facility] 02/01/2014 Patient Education: Patient Medication Summary Completed 02/01/2014 Appointment: [facility] WPtel[facility] [phone] [facility] [place] [facility] 12/30/2013 Patient Education: Patient Medication Summary Completed 12/30/2013 Appointment: Loren Vitale WPtel: [facility] [place] [facility] 11/30/2013 Patient Education: Patient Medication Summary Completed 11/30/2013 Appointment: [facility]ille Devil: [phone] [phone] [place] Injection 11/02/2013 Patient Education: Patient Medication Summary Completed 11/02/2013 Appointment: [facility] WPtel: [phone] [facility] [place] [facility] 09/28/2013 Appointment: [facility] WPtel: [phone] [facility] [place] [facility] 08/31/2013 Patient Education: Patient Medication Summary Completed 08/31/2013 Patient Education: Patient Medication Summary Completed 08/04/2013 Appointment: [facility] WPtel: [phone] [facility] [place] [facility] 08/03/2013 Appointment: Loren Vitale WPtel: [phone] [facility] [place] 07/06/2013 Patient Education: Patient Medication Summary Completed 07/06/2013 Appointment: [facility] Devi [facility]el[facility] [phone] [facility] [place] Injection 05/31/2013 Patient Education: Patient Medication Summary Completed 05/31/2013 Appointment: Cam[facility] Devi [facility]Ptel: [phone] [facility] [place] Injection 05/04/2013 Patient Education: [...] psychiatrist. 05/03/2013 Appointment: [facility]Ptel[facility] [phone] [facility] [place] Other 05/03/2013 Patient Education: Patient Medication Summary Completed 05/03/2013 Appointment: Cam[facility] Devi [facility]el[facility] [phone] [facility] [place] Injection 03/30/2013 Patient Education: [...] to see Dr[facility] at [facility]. 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 03/02/2013 Appointment: Loren Vitale WPtel[facility] [phone] [facility] [place] Follow up 03/02/2013 Patient Education: Patient Medication Summary Completed 03/02/2013 Appointment: [facility] Vitale WPtel: [phone] [facility] [place] Injection 02/02/2013 Patient Education: Patient Medication Summary Completed 02/02/2013 Patient Education: Patient Medication Summary Completed 12/29/2012 App[facility]ment[phone] [phone] [place] Injection 12/01/2012 Patient Education: Patient Medication Summary Completed 12/01/2012 [facility]ment[facility] [phone] [id number] [place] [facility] 11/03/2012 Patient Education: Patient Medication Summary Completed 11/03/2012 Visit Plan: Rash-discussed natural and expected course of this diagnosis and to alert me if symptoms do not follow expected course, or if any worse. RX sent to patient's pharmacy and instructed on use. B12 def-injection today in the office 09/30/2012 Appointment: [facility]el[facility] [phone] [id number] [place] Other 09/30/2012 Patient Education: Patient Medication Summary Completed 09/30/2012 Patient Education: Patient Medication Summary Completed 09/08/2012 App[facility]ment: [facility] [phone] [phone] [place] Injection 08/25/2012 Patient Education: Patient Medication Summary Completed 08/25/2012 Appointment: [facility]el[facility] [phone] [id number] [place] [facility] 08/11/2012 Patient Education: Patient Medication Summary Completed 08/11/2012 Appointment: [facility]Ptel[facility] [phone] [id number] [place] [facility] 07/21/2012 Patient Education: Patient [...] to see Dr. Treviño at [facility]. 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 07/07/2012 Appointment: Loren Vitale WPtel: [id number] [place] Follow up 07/07/2012 Patient Education: Patient Medication Summary Completed 07/07/2012 Patient Education: Patient Medication Summary Completed 06/25/2012 Patient Education: Patient Medication Summary Completed 06/09/2012 Patient Education: Patient Medication Summary Completed 05/25/2012 Appointment: Loren Vitale WPtel: [facility] [place] [facility] 05/12/2012 Patient Education: Patient Medication Summary Completed 05/12/2012 Patient Education: Patient Medication Summary Completed 04/20/2012 App[facility]ment: [facility] [phone] [phone] [place] Injection 04/07/2012 Patient Education: Patient Medication Summary Completed 04/07/2012 Appointment: [facility] [phone] [phone] [place] Injection 03/24/2012 Appointment: [facility] [phone] [phone] [place] Injection 03/10/2012 Patient Education: Patient Medication Summary Completed 03/10/2012 Appointment: [facility]Ptel[facility] [phone] [id number] [place] [facility] 02/18/2012 Patient Education: Patient Medication Summary Completed 02/18/2012 Appointment: Loren [facility]Ptel: [phone] [id number] [place] [facility]jection 02/04/2012 Patient Education: Patient Medication Summary Completed 02/04/2012 Appointment: Loren Vit[facility] WPtel: [phone] [id number] [place] 01/21/2012 Patient Education: Patient [...] normal. 01/07/2012 Appointment: Loren Vitale WPtel[facility] [phone] [id number] [place] Other 01/07/2012 Patient Education: Patient [...] ahold of Juan's psychiatrist who is in [place], but he is apparently on vacation to the [facility] and may not respond until he gets back in December. I think that Juan's medications need adjusted and that is the largest part of his new symptoms. 12/17/2011 Appointment: Loren Vitale WPtel: [facility] [facility] 12/17/2011 Patient Education: Patient Medication [...] with them about assistance. 12/10/2011 Appointment: Camille Deviteeran: [address] [place] [id number] [employer] 12/10/2011 Patient Education: Patient Medication Summary [...] The patient/family expressed understanding. 11/26/2011 Appointment: Loren Vitaletel: [phone] [id number] [place] New Patient 11/26/2011 Patient Education: Patient [...] to see Dr. Treviño at [facility]. B 12 deficiency and folate deficiency [...] first get his [place] back from the [place] prior to starting on the [place]. His [...] ahold of Juan's psychiatrist who is in [place], but he is apparently on vacation to the [facility] and may not respond until he gets back in December. I think that Juan's medications need adjusted and that is the largest part of his new symptoms. . Agsb-[id number] cream to affected area twice daily as [...] to see Dr. Treviño at [facility]. B 12 deficiency and folate deficiency [...]
--- OUTSIDE RECORDS SUMMARY | 2018-12-22 16:00 | XMS REPORT | CCD ---
Author Author Loren Vitale MD, [facility] Address [address] [place] [address] Phone Care Team Providers [facility] Custodian Name Role Phone PP Unavailable CCM Unavailable Summary Purpose Interface Exchange Insurance Providers Payer name Policy type / Coverage type Covered alliance party ID Effective Begin Date Effective End Date WPS Medicare Part B Medicare Part B [id number] Unknown [place] [employer] Medicare Part B [id number] Unknown Family history Sister Diagnosis Age At Onset No Family Disease Entered N/A First cousin Diagnosis Age At Onset No Family Disease Entered N/A Mother Diagnosis Age At Onset Dementia Unknown Social History Social History Element Codes Description Effective Dates Marital status Unknown Single 11/26/[address]: 94762143 Current every day smoker 2 packs daily 11/26/[address]: 890740501 Never drinks alcohol 11/26/2011 Has the patient [...] (vit B-12) 1,000 mcg/mL injection solution RxNorm: 490444 Milliliter(s) Inj 08/28/2018 08/28/2018 Inactive cyanocobalamin (vit B-12) 1,000 mcg/mL injection solution RxNorm: 780019 Milliliter(s) Inj 07/31/2018 07/31/2018 Inactive cyanocobalamin (vit B-12) 1,000 mcg/mL injection solution RxNorm: 641146 Milliliter(s) Inj 07/01/2018 07/01/2018 Inactive cyanocobalamin (vit B-12) 1,000 mcg/mL injection solution RxNorm: 101517 Milliliter(s) Inj 2018 2018 Inactive Wellbutrin SR 100 mg tablet, 12 hr sustained-release RxNorm: 382200 TAKE ONE TABLET BY MOUTH EVERY NIGHT AT BEDTIME 04/28/2018 10/24/2018 Active cyanocobalamin (vit B-12) 1,000 mcg/mL injection solution RxNorm: 230704 Milliliter(s) Inj 03/30/2018 03/30/2018 Inactive cyanocobalamin (vit B-12) 1,000 mcg/mL injection solution RxNorm: 677407 1 Milliliter(s) Inj 03/03/2018 03/03/2018 Inactive cyanocobalamin (vit B-12) 1,000 mcg/mL injection solution RxNorm: 133920 1 Milliliter(s) Inj 01/28/2018 01/28/2018 Inactive cyanocobalamin (vit B-12) 1,000 mcg/mL injection solution RxNorm: 552101 Milliliter(s) Inj 12/29/2017 12/29/2017 Inactive cyanocobalamin (vit B-12) 1,000 mcg/mL injection solution RxNorm: 878917 1 Milliliter(s) Inj 12/01/2017 12/01/2017 Inactive Wellbutrin SR 100 mg tablet, 12 hr sustained-release RxNorm: 890128 TAKE ONE TABLET BY MOUTH EVERY NIGHT AT BEDTIME 10/28/2017 04/25/2018 Inactive cyanocobalamin (vit B-12) 1,000 mcg/mL injection solution RxNorm: 779441 1 Milliliter(s) Inj 10/28/2017 10/28/2017 Inactive cyanocobalamin (vit B-12) 1,000 mcg/mL injection solution RxNorm: 966977 Milliliter(s) Inj 09/29/2017 09/29/2017 Inactive cyanocobalamin (vit B-12) 1,000 mcg/mL injection solution RxNorm: 049987 Milliliter(s) Inj 09/02/2017 09/02/2017 Inactive cyanocobalamin (vit B-12) 1,000 mcg/mL injection solution RxNorm: 999833 Milliliter(s) Inj 08/04/2017 08/04/2017 Inactive cyanocobalamin (vit B-12) 1,000 mcg/mL injection solution RxNorm: 720303 1 Milliliter(s) Inj 07/01/2017 07/01/2017 Inactive cyanocobalamin (vit B-12) 1,000 mcg/mL injection solution RxNorm: 441269 Milliliter(s) Inj 05/30/2017 05/30/2017 Inactive cyanocobalamin (vit B-12) 1,000 mcg/mL injection solution RxNorm: 285637 1 Milliliter(s) Inj 2017 2017 Inactive Wellbutrin SR 100 mg tablet, 12 hr sustained-release RxNorm: 654910 TAKE ONE TABLET BY MOUTH EVERY NIGHT AT BEDTIME 04/23/2017 10/19/2017 Inactive cyanocobalamin (vit B-12) 1,000 mcg/mL injection solution RxNorm: 680914 Milliliter(s) Inj 03/31/2017 03/31/2017 Inactive cyanocobalamin (vit B-12) 1,000 mcg/mL injection solution RxNorm: 585789 Milliliter(s) Inj 02/28/2017 02/28/2017 Inactive cyanocobalamin (vit B-12) 1,000 mcg/mL injection solution RxNorm: 809760 Milliliter(s) Inj 02/03/2017 02/03/2017 Inactive cyanocobalamin (vit B-12) 1,000 mcg/mL injection solution RxNorm: 813238 1 Milliliter(s) Inj 12/30/2016 12/30/2016 Inactive cyanocobalamin (vit B-12) 1,000 mcg/mL injection solution RxNorm: 594717 1 Milliliter(s) Inj 12/02/2016 12/02/2016 Inactive Wellbutrin SR 100 mg tablet, 12 hr sustained-release RxNorm: 682157 TAKE ONE TABLET BY MOUTH EVERY NIGHT AT BEDTIME 10/30/2016 04/22/2017 Inactive cyanocobalamin (vit B-12) 1,000 mcg/mL injection solution RxNorm: 916401 Milliliter(s) Inj 10/29/2016 10/29/2016 Inactive cyanocobalamin (vit B-12) 1,000 mcg/mL injection solution RxNorm: 272576 1 Milliliter(s) Inj 10/01/2016 10/01/2016 Inactive cyanocobalamin (vit B-12) 1,000 mcg/mL injection solution RxNorm: 585841 Milliliter(s) Inj 09/02/2016 09/02/2016 Inactive cyanocobalamin (vit B-12) 1,000 mcg/mL injection solution RxNorm: 562081 Milliliter(s) Inj 08/05/2016 08/05/2016 Inactive cyanocobalamin (vit B-12) 1,000 mcg/mL injection solution RxNorm: 599118 1 Milliliter(s) Inj 07/02/2016 07/02/2016 Inactive cyanocobalamin (vit B-12) 1,000 mcg/mL injection solution RxNorm: 618333 Milliliter(s) Inj 06/03/2016 06/03/2016 Inactive cyanocobalamin (vit B-12) 1,000 mcg/mL injection solution RxNorm: 464090 Milliliter(s) Inj 2016 2016 Inactive Wellbutrin SR 100 mg tablet,sustained-release RxNorm: 251369 1 Tablet(s) PO QHS 04/01/2016 10/27/2016 Inactive cyanocobalamin (vit B-12) 1,000 mcg/mL injection solution RxNorm: 895665 Milliliter(s) Inj 04/01/2016 04/01/2016 Inactive cyanocobalamin (vit B-12) 1,000 mcg/mL injection solution RxNorm: 742095 1 Milliliter(s) Inj 03/05/2016 03/05/2016 Inactive cyanocobalamin (vit B-12) 1,000 mcg/mL injection solution RxNorm: 232050 Milliliter(s) Inj 01/29/2016 01/29/2016 Inactive cyanocobalamin (vit B-12) 1,000 mcg/mL injection solution RxNorm: 405370 Milliliter(s) Inj 01/02/2016 01/02/2016 Inactive mupirocin 2 % topical ointment RxNorm: 330022 1 Application TOP BID 12/04/2015 No Stop Date Active doxycycline hyclate 100 mg capsule RxNorm: 8940328 1 Capsule(s) PO BID 12/04/2015 12/13/2015 Inactive cyanocobalamin (vit B-12) 1,000 mcg/mL injection solution RxNorm: 277683 Milliliter(s) Inj 10/30/2015 10/30/2015 Inactive cyanocobalamin (B12)-cobamamide 5,000 mcg-100 mcg sublingual tablet RxNorm: 256528 Tablet(s) SL 10/02/2015 10/02/2015 Inactive Wellbutrin SR 100 mg tablet,sustained-release RxNorm: 909903 1 Tablet(s) PO QHS 09/08/2015 03/31/2016 Inactive cyanocobalamin (vit B-12) 1,000 mcg/mL injection solution RxNorm: 199981 Milliliter(s) Inj 08/29/2015 08/29/2015 Inactive cyanocobalamin (vit B-12) 1,000 mcg/mL injection solution RxNorm: 963580 Milliliter(s) Inj 07/31/2015 07/31/2015 Inactive cyanocobalamin (vit B-12) 1,000 mcg/mL injection solution RxNorm: 044974 Milliliter(s) Inj 06/05/2015 06/05/2015 Inactive cyanocobalamin (vit B-12) 1,000 mcg/mL injection solution RxNorm: 892122 Milliliter(s) Inj 05/01/2015 05/01/2015 Inactive cyanocobalamin (vit B-12) 1,000 mcg/mL injection solution RxNorm: 490065 Milliliter(s) Inj 04/03/2015 04/03/2015 Inactive cyanocobalamin (vit B-12) 1,000 mcg/mL injection solution RxNorm: 613891 Milliliter(s) Inj 02/28/2015 02/28/2015 Inactive cyanocobalamin (vit B-12) 1,000 mcg/mL injection solution RxNorm: 451710 Milliliter(s) Inj 01/30/2015 01/30/2015 Inactive Wellbutrin SR 100 mg tablet,sustained-release RxNorm: 023395 1 Tablet(s) PO QHS 01/16/2015 08/13/2015 Inactive cyanocobalamin (vit B-12) 1,000 mcg/mL injection solution RxNorm: 363719 1 Milliliter(s) Inj 01/02/2015 01/02/2015 Inactive cyanocobalamin (vit B-12) 1,000 mcg/mL injection solution RxNorm: 843713 1 Milliliter(s) Inj 11/28/2014 11/28/2014 Inactive cyanocobalamin (vit B-12) 1,000 mcg/mL injection solution RxNorm: 921575 Milliliter(s) Inj 10/31/2014 10/31/2014 Inactive [SAVINGS FOR NON-COVERED DRUGS -- BIN:[id number], PCN: ASPROD1, Group: XXXXX, ID# [id number], Questions: . THIS IS NOT INSURANCE.] cyanocobalamin (vit B-12) 1,000 mcg/mL injection solution RxNorm: 014591 1 Milliliter(s) Inj daily 10/03/2014 10/03/2014 Inactive [SAVINGS FOR NON-COVERED DRUGS -- BIN:838557, PCN: ASPROD1, Group: XXXXX, ID# [id number], Questions: . THIS IS NOT INSURANCE.] cyanocobalamin (vit B-12) 1,000 mcg/mL injection solution RxNorm: 658974 Milliliter(s) Inj 08/30/2014 08/30/2014 Inactive [SAVINGS FOR NON-COVERED DRUGS -- BIN:974701, PCN: ASPROD1, Group: XXXXX, ID# [id number], Questions: . THIS IS NOT INSURANCE.] nystatin-triamcinolone 100,000 unit/g-0.1 % topical cream RxNorm: 8223239 1 Application TOP BID 08/02/2014 08/08/2014 Inactive [SAVINGS FOR UNINSURED PATIENTS -- BIN:599463, PCN: ASPROD1, Group: [id number], ID# [id number], Process claim through [employer], for questions: . THIS IS NOT INSURANCE.] cyanocobalamin (vit B-12) 1,000 mcg/mL injection solution RxNorm: 363224 Milliliter(s) Inj 08/02/2014 08/02/2014 Inactive [SAVINGS FOR UNINSURED PATIENTS -- BIN:071877, PCN: ASPROD1, Group: [id number], ID# [id number], Process claim through [employer], for questions: . THIS IS NOT INSURANCE.] cyanocobalamin (vit B-12) 1,000 mcg/mL injection kit RxNorm: 497912 Milliliter(s) Inj 07/04/2014 07/04/2014 Inactive [SAVINGS FOR UNINSURED PATIENTS -- BIN:021664, PCN: ASPROD1, Group: [id number], ID# [id number], Process claim through [employer], for questions: . THIS IS NOT INSURANCE.] cyanocobalamin (vit B-12) 1,000 mcg/mL injection solution RxNorm: 579297 Milliliter(s) Inj 05/30/2014 05/30/2014 Inactive cyanocobalamin (vit B-12) 1,000 mcg/mL injection solution RxNorm: 749732 Milliliter(s) Inj 05/02/2014 05/02/2014 Inactive cyanocobalamin (vit B-12) 1,000 mcg/mL injection solution RxNorm: 211573 Milliliter(s) Inj 04/05/2014 04/05/2014 Inactive cyanocobalamin (vit B-12) 1,000 mcg/mL injection solution RxNorm: 894660 Milliliter(s) Inj 03/07/2014 03/07/2014 Inactive cyanocobalamin (vit B-12) 1,000 mcg/mL injection solution RxNorm: 818410 1 Milliliter(s) Inj 02/01/2014 02/01/2014 Inactive cyanocobalamin (vit B-12) 1,000 mcg/mL injection solution RxNorm: 668565 1 Milliliter(s) Inj 12/30/2013 12/30/2013 Inactive [SAVINGS FOR UNINSURED PATIENTS -- BIN:133844, PCN: ASPROD1, Group: [id number], ID# [id number], Process claim through [email or web address], for questions: . THIS IS NOT INSURANCE.] cyanocobalamin (vit B-12) 1,000 mcg/mL injection solution RxNorm: 367769 Milliliter(s) Inj 11/30/2013 11/30/2013 Inactive cyanocobalamin (vit B-12) 1,000 mcg/mL injection solution RxNorm: 224274 1 Milliliter(s) Inj 11/02/2013 11/02/2013 Inactive Vitamin B-12 1,000 mcg/mL injection solution RxNorm: 683288 Milliliter(s) Inj 08/31/2013 08/31/2013 Inactive Vitamin B-12 1,000 mcg/mL injection solution RxNorm: 412169 1 Milliliter(s) Inj 08/04/2013 08/04/2013 Inactive Vitamin B-12 1,000 mcg/mL injection solution RxNorm: 926890 Milliliter(s) Inj 07/06/2013 07/06/2013 Inactive cyanocobalamin (vit B-12) 1,000 mcg/mL injection solution RxNorm: 596171 Milliliter(s) Inj 05/31/2013 05/31/2013 Inactive cyanocobalamin (vit B-12) 1,000 mcg/mL injection kit RxNorm: 854758 Milliliter(s) Inj 05/04/2013 05/04/2013 Inactive cyanocobalamin (vitamin B-12) 1,000 mcg/mL Injection RxNorm: 101314 Milliliter(s) Inj 03/30/2013 03/30/2013 Inactive cyanocobalamin (vitamin B-12) 1,000 mcg/mL Injection RxNorm: 525746 Milliliter(s) Inj 02/02/2013 02/02/2013 Inactive cyanocobalamin (vitamin B-12) 1,000 mcg/mL Injection RxNorm: 015621 Milliliter(s) Inj 12/29/2012 12/29/2012 Inactive cyanocobalamin (vitamin B-12) 1,000 mcg/mL Injection RxNorm: 361353 Milliliter(s) Inj 12/01/2012 12/01/2012 Inactive Vitamin B-12 1,000 mcg tablet RxNorm: 302091 Tablet(s) PO 11/03/2012 11/03/2012 Inactive Vitamin B-12 1,000 mcg/mL Injection RxNorm: 317329 1 Milliliter(s) Inj 09/30/2012 09/30/2012 Inactive triamcinolone acetonide 0.1 % Topical Cream RxNorm: 9210168 1 Application TOP BID 09/30/2012 10/13/2012 Inactive Vitamin B-12 1,000 mcg/mL Injection RxNorm: 261734 1 Milliliter(s) Inj 09/08/2012 09/08/2012 Inactive cyanocobalamin (vitamin B-12) 1,000 mcg/mL Injection RxNorm: 365982 1 Milliliter(s) Inj 08/25/2012 08/25/2012 Inactive cyanocobalamin (vitamin B-12) 1,000 mcg/mL Injection RxNorm: 996899 1 Milliliter(s) Inj 08/11/2012 08/11/2012 Inactive cyanocobalamin (vitamin B-12) 1,000 mcg/mL Injection RxNorm: 840763 1 Milliliter(s) Inj 07/21/2012 07/21/2012 Inactive Vitamin B-12 1,000 mcg/mL Injection RxNorm: 657136 Milliliter(s) Inj 07/07/2012 07/07/2012 Inactive cyanocobalamin (vitamin B-12) 1,000 mcg/mL Injection RxNorm: 829077 1 Milliliter(s) Inj 06/25/2012 06/25/2012 Inactive Vitamin B-12 1,000 mcg/mL Injection RxNorm: 654074 1 Milliliter(s) Inj 06/09/2012 06/09/2012 Inactive Vitamin B-12 1,000 mcg/mL Injection RxNorm: 874777 Milliliter(s) Inj 05/25/2012 05/25/2012 Inactive Vitamin B-12 1,000 mcg/mL Injection RxNorm: 943224 Milliliter(s) Inj 05/12/2012 05/12/2012 Inactive Vitamin B-12 1,000 mcg/mL Injection RxNorm: 054925 Milliliter(s) Inj 04/20/2012 04/20/2012 Inactive Vitamin B-12 1,000 mcg/mL Injection RxNorm: 648287 Milliliter(s) Inj 04/07/2012 04/07/2012 Inactive Vitamin B-12 1,000 mcg/mL Injection RxNorm: 668940 Milliliter(s) Inj 03/10/2012 03/10/2012 Inactive Vitamin B-12 1,000 mcg/mL Injection RxNorm: 236583 Milliliter(s) Inj 02/18/2012 02/18/2012 Inactive Vitamin B-12 1,000 mcg/mL Injection RxNorm: 143380 Milliliter(s) Inj 02/04/2012 02/04/2012 Inactive Vitamin B-12 1,000 mcg/mL Injection RxNorm: 702716 Milliliter(s) Inj 01/21/2012 01/21/2012 Inactive Vitamin B-12 1,000 mcg/mL Injection RxNorm: 034853 Milliliter(s) Inj 01/07/2012 01/07/2012 Inactive Vitamin B-12 1,000 mcg/mL Injection RxNorm: 710244 Milliliter(s) Inj 12/17/2011 12/17/2011 Inactive KCL 10 meq RxNorm: 1 PO daily 12/12/2011 12/16/2011 Inactive Vitamin B-12 1,000 mcg/mL Injection RxNorm: 193336 1 Milliliter(s) Inj monthly No Start Date Active Wellbutrin SR 200 mg Tab RxNorm: 750907 1 Tablet(s) PO daily No Start Date Active Anafranil 25 mg Cap RxNorm: 239827 1 Capsule(s) PO daily No Start Date Active Stelazine 5 mg Tab RxNorm: 875828 1 Tablet(s) PO BID No Start Date Active clonazepam 1 mg Tab RxNorm: 214666 1 Tablet(s) PO BID No Start Date Active risperidone 3 mg Tab RxNorm: 317792 Tablet(s) PO No Start Date Active 2 on even days 3 on odd days Cogentin 1 mg Tab RxNorm: 326910 1 Tablet(s) PO TID No Start Date Active Medication Administered Medication Codes Instructions Start Date Status cyanocobalamin (vit B-12) 1,000 mcg/mL injection solution RxNorm: 752324 Milliliter 08/28/2018 Active cyanocobalamin (vit B-12) 1,000 mcg/mL injection solution RxNorm: 701098 Milliliter 07/31/2018 No longer Active cyanocobalamin (vit B-12) 1,000 mcg/mL injection solution RxNorm: 846525 Milliliter 07/01/2018 No longer Active cyanocobalamin (vit B-12) 1,000 mcg/mL injection solution RxNorm: 848953 Milliliter 2018 No longer Active cyanocobalamin (vit B-12) 1,000 mcg/mL injection solution RxNorm: 354823 Milliliter 03/30/2018 No longer Active cyanocobalamin (vit B-12) 1,000 mcg/mL injection solution RxNorm: 148640 1Milliliter 03/03/2018 No longer Active cyanocobalamin (vit B-12) 1,000 mcg/mL injection solution RxNorm: 315209 1Milliliter 01/28/2018 No longer Active cyanocobalamin (vit B-12) 1,000 mcg/mL injection solution RxNorm: 919626 Milliliter 12/29/2017 No longer Active cyanocobalamin (vit B-12) 1,000 mcg/mL injection solution RxNorm: 477635 1Milliliter 12/01/2017 No longer Active cyanocobalamin (vit B-12) 1,000 mcg/mL injection solution RxNorm: 824703 1Milliliter 10/28/2017 No longer Active cyanocobalamin (vit B-12) 1,000 mcg/mL injection solution RxNorm: 039233 Milliliter 09/29/2017 No longer Active cyanocobalamin (vit B-12) 1,000 mcg/mL injection solution RxNorm: 540094 Milliliter 09/02/2017 No longer Active cyanocobalamin (vit B-12) 1,000 mcg/mL injection solution RxNorm: 502479 Milliliter 08/04/2017 No longer Active cyanocobalamin (vit B-12) 1,000 mcg/mL injection solution RxNorm: 758381 1Milliliter 07/01/2017 No longer Active cyanocobalamin (vit B-12) 1,000 mcg/mL injection solution RxNorm: 395151 Milliliter 05/30/2017 No longer Active cyanocobalamin (vit B-12) 1,000 mcg/mL injection solution RxNorm: 358467 1Milliliter 2017 No longer Active cyanocobalamin (vit B-12) 1,000 mcg/mL injection solution RxNorm: 183669 Milliliter 03/31/2017 No longer Active cyanocobalamin (vit B-12) 1,000 mcg/mL injection solution RxNorm: 189312 Milliliter 02/28/2017 No longer Active cyanocobalamin (vit B-12) 1,000 mcg/mL injection solution RxNorm: 008023 Milliliter 02/03/2017 No longer Active cyanocobalamin (vit B-12) 1,000 mcg/mL injection solution RxNorm: 878042 1Milliliter 12/30/2016 No longer Active cyanocobalamin (vit B-12) 1,000 mcg/mL injection solution RxNorm: 720197 1Milliliter 12/02/2016 No longer Active cyanocobalamin (vit B-12) 1,000 mcg/mL injection solution RxNorm: 110248 Milliliter 10/29/2016 No longer Active cyanocobalamin (vit B-12) 1,000 mcg/mL injection solution RxNorm: 492710 1Milliliter 10/01/2016 No longer Active cyanocobalamin (vit B-12) 1,000 mcg/mL injection solution RxNorm: 332038 Milliliter 09/02/2016 No longer Active cyanocobalamin (vit B-12) 1,000 mcg/mL injection solution RxNorm: 260943 Milliliter 08/05/2016 No longer Active cyanocobalamin (vit B-12) 1,000 mcg/mL injection solution RxNorm: 454694 1Milliliter 07/02/2016 No longer Active cyanocobalamin (vit B-12) 1,000 mcg/mL injection solution RxNorm: 112004 Milliliter 06/03/2016 No longer Active cyanocobalamin (vit B-12) 1,000 mcg/mL injection solution RxNorm: 251140 Milliliter 2016 No longer Active cyanocobalamin (vit B-12) 1,000 mcg/mL injection solution RxNorm: 015654 Milliliter 04/01/2016 No longer Active cyanocobalamin (vit B-12) 1,000 mcg/mL injection solution RxNorm: 072923 1Milliliter 03/05/2016 No longer Active cyanocobalamin (vit B-12) 1,000 mcg/mL injection solution RxNorm: 349834 Milliliter 01/29/2016 No longer Active cyanocobalamin (vit B-12) 1,000 mcg/mL injection solution RxNorm: 656950 Milliliter 01/02/2016 No longer Active cyanocobalamin (vit B-12) 1,000 mcg/mL injection solution RxNorm: 965559 Milliliter 10/30/2015 No longer Active cyanocobalamin (B12)-cobamamide 5,000 mcg-100 mcg sublingual tablet RxNorm: 323856 Tablet 10/02/2015 No longer Active cyanocobalamin (vit B-12) 1,000 mcg/mL injection solution RxNorm: 272825 Milliliter 08/29/2015 No longer Active cyanocobalamin (vit B-12) 1,000 mcg/mL injection solution RxNorm: 953290 Milliliter 07/31/2015 No longer Active cyanocobalamin (vit B-12) 1,000 mcg/mL injection solution RxNorm: 750222 Milliliter 06/05/2015 No longer Active cyanocobalamin (vit B-12) 1,000 mcg/mL injection solution RxNorm: 806990 Milliliter 05/01/2015 No longer Active cyanocobalamin (vit B-12) 1,000 mcg/mL injection solution RxNorm: 672919 Milliliter 04/03/2015 No longer Active cyanocobalamin (vit B-12) 1,000 mcg/mL injection solution RxNorm: 538220 Milliliter 02/28/2015 No longer Active cyanocobalamin (vit B-12) 1,000 mcg/mL injection solution RxNorm: 541447 Milliliter 01/30/2015 No longer Active cyanocobalamin (vit B-12) 1,000 mcg/mL injection solution RxNorm: 183498 1Milliliter 01/02/2015 No longer Active cyanocobalamin (vit B-12) 1,000 mcg/mL injection solution RxNorm: 552880 1Milliliter 11/28/2014 No longer Active cyanocobalamin (vit B-12) 1,000 mcg/mL injection solution RxNorm: 982234 Milliliter 10/31/2014 No longer Active cyanocobalamin (vit B-12) 1,000 mcg/mL injection solution RxNorm: 920391 1Milliliterdaily 10/03/2014 No longer Active cyanocobalamin (vit B-12) 1,000 mcg/mL injection solution RxNorm: 811263 Milliliter 08/30/2014 No longer Active cyanocobalamin (vit B-12) 1,000 mcg/mL injection solution RxNorm: 310387 Milliliter 08/02/2014 No longer Active cyanocobalamin (vit B-12) 1,000 mcg/mL injection kit RxNorm: 081342 Milliliter 07/04/2014 No longer Active cyanocobalamin (vit B-12) 1,000 mcg/mL injection solution RxNorm: 664204 Milliliter 05/30/2014 No longer Active cyanocobalamin (vit B-12) 1,000 mcg/mL injection solution RxNorm: 872936 Milliliter 05/02/2014 No longer Active cyanocobalamin (vit B-12) 1,000 mcg/mL injection solution RxNorm: 050801 Milliliter 04/05/2014 No longer Active cyanocobalamin (vit B-12) 1,000 mcg/mL injection solution RxNorm: 731958 Milliliter 03/07/2014 No longer Active cyanocobalamin (vit B-12) 1,000 mcg/mL injection solution RxNorm: 487931 1Milliliter 02/01/2014 No longer Active cyanocobalamin (vit B-12) 1,000 mcg/mL injection solution RxNorm: 911992 1Milliliter 12/30/2013 No longer Active cyanocobalamin (vit B-12) 1,000 mcg/mL injection solution RxNorm: 595108 Milliliter 11/30/2013 No longer Active cyanocobalamin (vit B-12) 1,000 mcg/mL injection solution RxNorm: 210725 1Milliliter 11/02/2013 No longer Active Vitamin B-12 1,000 mcg/mL injection solution RxNorm: 860961 Milliliter 08/31/2013 No longer Active Vitamin B-12 1,000 mcg/mL injection solution RxNorm: 484865 1Milliliter 08/04/2013 No longer Active Vitamin B-12 1,000 mcg/mL injection solution RxNorm: 646983 Milliliter 07/06/2013 No longer Active cyanocobalamin (vit B-12) 1,000 mcg/mL injection solution RxNorm: 127850 Milliliter 05/31/2013 No longer Active cyanocobalamin (vit B-12) 1,000 mcg/mL injection kit RxNorm: 322507 Milliliter 05/04/2013 No longer Active cyanocobalamin (vitamin B-12) 1,000 mcg/mL Injection RxNorm: 325931 Milliliter 03/30/2013 No longer Active cyanocobalamin (vitamin B-12) 1,000 mcg/mL Injection RxNorm: 525432 Milliliter 02/02/2013 No longer Active cyanocobalamin (vitamin B-12) 1,000 mcg/mL Injection RxNorm: 149163 Milliliter 12/29/2012 No longer Active cyanocobalamin (vitamin B-12) 1,000 mcg/mL Injection RxNorm: 012461 Milliliter 12/01/2012 No longer Active Vitamin B-12 1,000 mcg tablet RxNorm: 594398 Tablet 11/03/2012 No longer Active Vitamin B-12 1,000 mcg/mL Injection RxNorm: 773907 1Milliliter 09/30/2012 No longer Active Vitamin B-12 1,000 mcg/mL Injection RxNorm: 337341 1Milliliter 09/08/2012 No longer Active cyanocobalamin (vitamin B-12) 1,000 mcg/mL Injection RxNorm: 695866 1Milliliter 08/25/2012 No longer Active cyanocobalamin (vitamin B-12) 1,000 mcg/mL Injection RxNorm: 378129 1Milliliter 08/11/2012 No longer Active cyanocobalamin (vitamin B-12) 1,000 mcg/mL Injection RxNorm: 037084 1Milliliter 07/21/2012 No longer Active Vitamin B-12 1,000 mcg/mL Injection RxNorm: 474418 Milliliter 07/07/2012 No longer Active cyanocobalamin (vitamin B-12) 1,000 mcg/mL Injection RxNorm: 558309 1Milliliter 06/25/2012 No longer Active Vitamin B-12 1,000 mcg/mL Injection RxNorm: 387873 1Milliliter 06/09/2012 No longer Active Vitamin B-12 1,000 mcg/mL Injection RxNorm: 350941 Milliliter 05/25/2012 No longer Active Vitamin B-12 1,000 mcg/mL Injection RxNorm: 549898 Milliliter 05/12/2012 No longer Active Vitamin B-12 1,000 mcg/mL Injection RxNorm: 630809 Milliliter 04/20/2012 No longer Active Vitamin B-12 1,000 mcg/mL Injection RxNorm: 783368 Milliliter 04/07/2012 No longer Active Vitamin B-12 1,000 mcg/mL Injection RxNorm: 344548 Milliliter 03/10/2012 No longer Active Vitamin B-12 1,000 mcg/mL Injection RxNorm: 375945 Milliliter 02/18/2012 No longer Active Vitamin B-12 1,000 mcg/mL Injection RxNorm: 929440 Milliliter 02/04/2012 No longer Active Vitamin B-12 1,000 mcg/mL Injection RxNorm: 321342 Milliliter 01/21/2012 No longer Active Vitamin B-12 1,000 mcg/mL Injection RxNorm: 754311 Milliliter 01/07/2012 No longer Active Vitamin B-12 1,000 mcg/mL Injection RxNorm: 298050 Milliliter 12/17/2011 No longer Active Immunizations Vaccine [...] Vitamin B 12 deficiency ICD-9: 266.2 02/28/2015 Medication dose changed ICD-9: V58.69 01/16/2015 Schizophrenia ICD-9: 295.90 01/16/2015 Leg pain ICD-9: 729.5 01/16/2015 DEPRESSIVE DISORDER NEC ICD-9: 311 01/16/2015 [...] Code Item Item Code Result Date B12 [id number] B12 637.00 pg/ml 07/31/2015 FOLIC ACID 7166743 FOLIC ACID >24.0 NG/ML 08/25/2012 VIT B 12 0819474 VIT B 12 1591 PG/ML 08/25/2012 HOMOCYS 9901322 HOMOCYS 6.8 UMOL/L 08/25/2012 TSH 8010367 TSH 1.386 uIU/ML 07/07/2012 CBC 7960648 WBC 6.4 10e9/L 07/07/2012 CBC 2594055 RBC 4.92 10e12/L 07/07/2012 CBC 8115936 HGB 15.0 g/dL 07/07/2012 CBC 8471848 HCT DET 43.3 % 07/07/2012 CBC 5902819 MCV 88.0 fL 07/07/2012 CBC 4177462 MCH 30.5 pg 07/07/2012 CBC 5534835 MCHC 34.6 g/dL 07/07/2012 CBC 4627124 PLT 180 10e9/L 07/07/2012 CBC 1118873 MPV 10.0 fL 07/07/2012 CBC 6594720 KENRICK % 59.0 % 07/07/2012 CBC 4943221 LY % 24.1 % 07/07/2012 CBC 7591665 MON % 12.5 % 07/07/2012 CBC 1163320 EOS % 4.1 % 07/07/2012 CBC 4548803 BASO % 0.3 % 07/07/2012 CBC 0807647 RDW 13.4 % 07/07/2012 CBC [id number] ABS KENRICK 3.78 10e9/L 07/07/2012 CBC [id number] ABS LYMPH 1.54 10e9/L 07/07/2012 CBC [id number] ABS MONO 0.80 10e9/L 07/07/2012 CBC [id number] ABS EOS 0.26 10e9/L 07/07/2012 CBC 1198973 ABS BASO 0.02 10e9/L 07/07/2012 CBC 5738613 RDW-SD 42.9 fL 07/07/2012 CHEM 14 7878862 AST 29 U/L 07/07/2012 CHEM 14 5363078 ALT 29 U/L 07/07/2012 CHEM 14 3454003 BUN 9 MG/DL 07/07/2012 CHEM 14 4899438 ALBUMIN 4.1 GM/DL 07/07/2012 CHEM 14 0029101 CHLORIDE 103 MMOL/L 07/07/2012 CHEM 14 5902522 BILI TOT 0.3 MG/DL 07/07/2012 CHEM 14 6264588 ALK PHOS 88 U/L 07/07/2012 CHEM 14 2820062 SODIUM 141 MMOL/L 07/07/2012 CHEM 14 0283329 CREATININE 1.38 MG/DL 07/07/2012 CHEM 14 4667381 CALCIUM 9.3 MG/DL 07/07/2012 CHEM 14 2680811 POTASSIUM 3.7 MMOL/L 07/07/2012 CHEM 14 0000710 PROT TOT 6.4 GM/DL 07/07/2012 CHEM 14 7537949 GLUCOSE 76 MG/DL 07/07/2012 CHEM 14 3163962 BICARB 28 MMOL/L 07/07/2012 CHEM 14 7342861 ANION GAP 10 MMOL/L 07/07/2012 GFR CALC 7556282 GFR AA >60 ML/MIN 07/07/2012 GFR CALC 1221429 GFR NON-AA 52.0L ML/MIN 07/07/2012 B12 FOLAT 4585119 VIT B 12 211 PG/ML 12/10/2011 B12 FOLAT 1483867 FOLIC ACID 3.9 NG/ML 12/10/2011 GFR CALC 7918684 GFR AA >60 ML/MIN 12/10/2011 GFR CALC 9910433 GFR NON-AA >60 ML/MIN 12/10/2011 CPK 0814824 CPK 135 U/L 12/10/2011 CHEM 14 8799040 AST 62 U/L 12/10/2011 CHEM 14 6968050 ALT 114 U/L 12/10/2011 CHEM 14 8401513 BUN 10 MG/DL 12/10/2011 CHEM 14 6322704 ALBUMIN 3.7 GM/DL 12/10/2011 CHEM 14 9098574 CHLORIDE 103 MMOL/L 12/10/2011 CHEM 14 0017591 BILI TOT 0.5 MG/DL 12/10/2011 CHEM 14 3738521 ALK PHOS 129 U/L 12/10/2011 CHEM 14 7922941 SODIUM 140 MMOL/L 12/10/2011 CHEM 14 6316758 CREATININE 1.17 MG/DL 12/10/2011 CHEM 14 20280102 CALCIUM 8.8 MG/DL 12/10/2011 CHEM 14 20280102 POTASSIUM 3.4 MMOL/L 12/10/2011 CHEM 14 20280102 PROT TOT 5.8 GM/DL 12/10/2011 CHEM 14 20280102 GLUCOSE 84 MG/DL 12/10/2011 CHEM 14 20280102 BICARB 26 MMOL/L 12/10/2011 CHEM 14 8381590 ANION GAP 11 MMOL/L 12/10/2011 URINALYSIS NONAUTO W/O SCOPE 18600 Specific [place] 1.005 DateTime(Free Text in Aprima) URINALYSIS NONAUTO W/O SCOPE 28049 PH 6 DateTime(Free Text in Aprima) URINALYSIS NONAUTO W/O SCOPE 57075 GLUCOSE neg DateTime(Free Text in Aprima) URINALYSIS NONAUTO W/O SCOPE 96692 Protein neg DateTime(Free Text in Aprima) URINALYSIS NONAUTO W/O SCOPE 72835 Blood neg DateTime(Free Text in Aprima) URINALYSIS NONAUTO W/O SCOPE 38372 Bilirubin neg DateTime(Free Text in Aprima) URINALYSIS NONAUTO W/O SCOPE 58873 Ketones neg DateTime(Free Text in Aprima) URINALYSIS NONAUTO W/O SCOPE 01426 Urobilinogen neg DateTime(Free Text in Aprima) URINALYSIS NONAUTO W/O SCOPE 95339 Nitrite neg DateTime(Free Text in Aprima) URINALYSIS NONAUTO W/O SCOPE 77087 Leukocytes neg DateTime(Free Text in Aprima) URINALYSIS NONAUTO W/O SCOPE 77109 Specific [place] 1.010 DateTime(Free Text in Aprima) URINALYSIS NONAUTO W/O SCOPE 81427 PH 6.5 DateTime(Free Text in Aprima) URINALYSIS NONAUTO W/O SCOPE 21087 GLUCOSE neg DateTime(Free Text in Aprima) URINALYSIS NONAUTO W/O SCOPE 62867 Protein neg DateTime(Free Text in Aprima) URINALYSIS NONAUTO W/O SCOPE 73573 Blood neg DateTime(Free Text in Aprima) URINALYSIS NONAUTO W/O SCOPE 81394 Bilirubin neg DateTime(Free Text in Aprima) URINALYSIS NONAUTO W/O SCOPE 59926 Ketones neg DateTime(Free Text in ) URINALYSIS NONAUTO W/O SCOPE 41308 Urobilinogen neg DateTime(Free Text in ) URINALYSIS NONAUTO W/O SCOPE 13744 Nitrite neg DateTime(Free Text in Aprima) URINALYSIS NONAUTO W/O SCOPE 61438 Leukocytes neg DateTime(Free Text in ) Review [...] recall three words at five minutes 11/05/2017 [facility] exam points Full Exam - General [...] recall three words at five minutes 01/16/2015 [facility] exam points Full Exam - General [...] recall three words at five minutes 03/02/2013 [facility] exam points Full Exam - Dermatology [...] recall three words at five minutes 07/07/2012 [facility] exam points Full Exam - General [...] digits 01/07/2012 None Full Exam - General 1995 Psychiatric cognition/memory Immediate memory: unable to recall three words at five minutes 01/07/2012 [facility] exam points Full Exam - General 1995 Constitutional general appearance Overall: well developed 12/17/2011 None Full Exam - General 1995 Constitutional general appearance Overall: in no acute distress 12/17/2011 None Full Exam - General 1995 Constitutional general appearance Overall: well nourished 12/17/2011 None Full Exam - General 1995 Eyes conjunctiva/eyelids Overall: conjunctiva clear 12/17/2011 None [...] atraumatic 12/17/2011 None Full Exam - General 1995 [...] recall three words at five minutes 12/17/2011 [facility] exam points 13/30 Full Exam - General 1994 Constitutional general [...] three words at five minutes 12/10/2011 [facility] exam points Full Exam - General [...] recall three words at five minutes 11/26/2011 [facility] exam points Procedures Procedure Codes Date THER/PROPH/DIAG INJ SC/IM CPT-4: 69882 08/28/2018 VITAMIN B12 INJECTION CPT- 4: J3420 08/28/2018 THER/PROPH/DIAG INJ SC/IM CPT-4: 58414 07/31/2018 VITAMIN B12 INJECTION CPT- 4: J3420 07/31/2018 THER/PROPH/DIAG INJ SC/IM CPT-4: 68261 07/01/2018 VITAMIN B12 INJECTION CPT- 4: J3420 07/01/2018 ADMIN INFLUENZA VIRUS VAC CPT-4: G0008 2018 FLU VACC PRSV FREE INC ANTIG CPT-4: 80314 2018 THER/PROPH/DIAG INJ SC/IM CPT-4: 02628 2018 VITAMIN B12 INJECTION CPT- 4: J3420 2018 THER/PROPH/DIAG INJ SC/IM CPT-4: 88724 03/30/2018 VITAMIN B12 INJECTION CPT- 4: J3420 03/30/2018 THER/PROPH/DIAG INJ SC/IM CPT-4: 34086 03/03/2018 VITAMIN B12 INJECTION CPT- 4: J3420 03/03/2018 THER/PROPH/DIAG INJ SC/IM CPT-4: 44545 01/28/2018 VITAMIN B12 INJECTION CPT- 4: J3420 01/28/2018 THER/PROPH/DIAG INJ SC/IM CPT-4: 29908 12/29/2017 VITAMIN B12 INJECTION CPT- 4: J3420 12/29/2017 THER/PROPH/DIAG INJ SC/IM CPT-4: 51158 12/01/2017 VITAMIN B12 INJECTION CPT- 4: J3420 12/01/2017 VITAMIN B12 INJECTION CPT- 4: J3420 10/28/2017 THER/PROPH/DIAG INJ SC/IM CPT-4: 66987 10/28/2017 THER/PROPH/DIAG INJ SC/IM CPT-4: 08757 09/29/2017 VITAMIN B12 INJECTION CPT- 4: J3420 09/29/2017 THER/PROPH/DIAG INJ SC/IM CPT-4: 76147 09/02/2017 VITAMIN B12 INJECTION CPT- 4: J3420 09/02/2017 THER/PROPH/DIAG INJ SC/IM CPT-4: 13324 08/04/2017 VITAMIN B12 INJECTION CPT- 4: J3420 08/04/2017 THER/PROPH/DIAG INJ SC/IM CPT-4: 72125 07/01/2017 VITAMIN B12 INJECTION CPT- 4: J3420 07/01/2017 THER/PROPH/DIAG INJ SC/IM CPT-4: 45768 05/30/2017 VITAMIN B12 INJECTION CPT- 4: J3420 05/30/2017 THER/PROPH/DIAG INJ SC/IM CPT-4: 72554 2017 ADMIN INFLUENZA VIRUS VAC CPT-4: G0008 2017 TOBACCO-USE ENVIRONMENTAL PROTECTION OFFICER 3-[address]: 515933110 CPT-4: G0436 2017 VITAMIN B12 INJECTION CPT- 4: J3420 2017 FLU VACC PRSV FREE INC ANTIG CPT-4: 12375 2017 TOBACCO-USE ENVIRONMENTAL PROTECTION OFFICER 3-[address]: 012418226 CPT-4: G0436 03/31/2017 VITAMIN B12 INJECTION CPT- 4: J3420 03/31/2017 THER/PROPH/DIAG INJ SC/IM CPT-4: 45014 02/28/2017 VITAMIN B12 INJECTION CPT- 4: J3420 02/28/2017 THER/PROPH/DIAG INJ SC/IM CPT-4: 06356 02/03/2017 VITAMIN B12 INJECTION CPT- 4: J3420 02/03/2017 TOBACCO-USE ENVIRONMENTAL PROTECTION OFFICER 3-[address]: 058395040 CPT-4: G0436 12/30/2016 THER/PROPH/DIAG INJ SC/IM CPT-4: 97529 12/30/2016 VITAMIN B12 INJECTION CPT- 4: J3420 12/30/2016 THER/PROPH/DIAG INJ SC/IM CPT-4: 96544 12/02/2016 VITAMIN B12 INJECTION CPT- 4: J3420 12/02/2016 THER/PROPH/DIAG INJ SC/IM CPT-4: 13880 10/29/2016 VITAMIN B12 INJECTION CPT- 4: J3420 10/29/2016 THER/PROPH/DIAG INJ SC/IM CPT-4: 37649 10/01/2016 VITAMIN B12 INJECTION CPT- 4: J3420 10/01/2016 TOBACCO-USE ENVIRONMENTAL PROTECTION OFFICER 3-[address]: 412301320 CPT-4: G0436 09/02/2016 VITAMIN B12 INJECTION CPT- 4: J3420 09/02/2016 THER/PROPH/DIAG INJ SC/IM CPT-4: 68795 09/02/2016 THER/PROPH/DIAG INJ SC/IM CPT-4: 18671 08/05/2016 VITAMIN B12 INJECTION CPT- 4: J3420 08/05/2016 THER/PROPH/DIAG INJ SC/IM CPT-4: 14520 07/02/2016 VITAMIN B12 INJECTION CPT- 4: J3420 07/02/2016 VITAMIN B12 INJECTION CPT- 4: J3420 06/03/2016 THER/PROPH/DIAG INJ SC/IM CPT-4: 20467 06/03/2016 THER/PROPH/DIAG INJ SC/IM CPT-4: 56117 2016 VITAMIN B12 INJECTION CPT- 4: J3420 2016 THER/PROPH/DIAG INJ SC/IM CPT-4: 65774 04/01/2016 VITAMIN B12 INJECTION CPT- 4: J3420 04/01/2016 VITAMIN B12 INJECTION CPT- 4: J3420 03/05/2016 THER/PROPH/DIAG INJ SC/IM CPT-4: 73823 03/05/2016 TOBACCO-USE ENVIRONMENTAL PROTECTION OFFICER 3-[address]: 833085973 CPT-4: G0436 01/29/2016 THER/PROPH/DIAG INJ SC/IM CPT-4: 80309 01/29/2016 VITAMIN B12 INJECTION CPT- 4: J3420 01/29/2016 THER/PROPH/DIAG INJ SC/IM CPT-4: 02711 01/02/2016 VITAMIN B12 INJECTION CPT- 4: J3420 01/02/2016 VITAMIN B12 INJECTION CPT- 4: J3420 12/04/2015 THER/PROPH/DIAG INJ SC/IM CPT-4: 29709 12/04/2015 THER/PROPH/DIAG INJ SC/IM CPT-4: 10618 10/30/2015 VITAMIN B12 INJECTION CPT- 4: J3420 10/30/2015 PPPS, SUBSEQ VISIT CPT- 4: G0439 10/11/2015 TOBACCO-USE ENVIRONMENTAL PROTECTION OFFICER 3-[address]: 067947709 CPT-4: G0436 10/11/2015 TOBACCO-USE ENVIRONMENTAL PROTECTION OFFICER 3-[address]: 522672675 CPT-4: G0436 10/02/2015 THER/PROPH/DIAG INJ SC/IM CPT-4: 22710 10/02/2015 VITAMIN B12 INJECTION CPT- 4: J3420 10/02/2015 THER/PROPH/DIAG INJ SC/IM CPT-4: 77334 08/29/2015 VITAMIN B12 INJECTION CPT- 4: J3420 08/29/2015 THER/PROPH/DIAG INJ SC/IM CPT-4: 13434 07/31/2015 VITAMIN B12 INJECTION CPT- 4: J3420 07/31/2015 THER/PROPH/DIAG INJ SC/IM CPT-4: 90314 07/03/2015 VITAMIN B12 INJECTION CPT- 4: J3420 07/03/2015 THER/PROPH/DIAG INJ SC/IM CPT-4: 95131 06/05/2015 VITAMIN B12 INJECTION CPT- 4: J3420 06/05/2015 VITAMIN B12 INJECTION CPT- 4: J3420 05/01/2015 THER/PROPH/DIAG INJ SC/IM CPT-4: 86003 05/01/2015 THER/PROPH/DIAG INJ SC/IM CPT-4: 32277 04/03/2015 VITAMIN B12 INJECTION CPT- 4: J3420 04/03/2015 THER/PROPH/DIAG INJ SC/IM CPT-4: 44200 02/28/2015 VITAMIN B12 INJECTION CPT- 4: J3420 02/28/2015 THER/PROPH/DIAG INJ SC/IM CPT-4: 19026 01/30/2015 VITAMIN B12 INJECTION CPT- 4: J3420 01/30/2015 VITAMIN B12 INJECTION CPT- 4: J3420 01/02/2015 THER/PROPH/DIAG INJ SC/IM CPT-4: 66159 01/02/2015 THER/PROPH/DIAG INJ SC/IM CPT-4: 37373 11/28/2014 VITAMIN B12 INJECTION CPT- 4: J3420 11/28/2014 THER/PROPH/DIAG INJ SC/IM CPT-4: 25405 10/31/2014 VITAMIN B12 INJECTION CPT- 4: J3420 10/31/2014 THER/PROPH/DIAG INJ SC/IM CPT-4: 51619 10/03/2014 VITAMIN B12 INJECTION CPT- 4: J3420 10/03/2014 THER/PROPH/DIAG INJ SC/IM CPT-4: 83500 08/30/2014 VITAMIN B12 INJECTION CPT- 4: J3420 08/30/2014 THER/PROPH/DIAG INJ SC/IM CPT-4: 05670 08/02/2014 VITAMIN B12 INJECTION CPT- 4: J3420 08/02/2014 THER/PROPH/DIAG INJ SC/IM CPT-4: 20126 07/04/2014 VITAMIN B12 INJECTION CPT- 4: J3420 07/04/2014 THER/PROPH/DIAG INJ SC/IM CPT-4: 05865 05/30/2014 VITAMIN B12 INJECTION CPT- 4: J3420 05/30/2014 THER/PROPH/DIAG INJ SC/IM CPT-4: 16187 05/02/2014 VITAMIN B12 INJECTION CPT- 4: J3420 05/02/2014 THER/PROPH/DIAG INJ SC/IM CPT-4: 65246 04/05/2014 THER/PROPH/DIAG INJ SC/IM CPT-4: 36665 03/07/2014 VITAMIN B12 INJECTION CPT- 4: J3420 03/07/2014 THER/PROPH/DIAG INJ SC/IM CPT-4: 03439 02/01/2014 VITAMIN B12 INJECTION CPT- 4: J3420 02/01/2014 VITAMIN B12 INJECTION CPT- 4: J3420 12/30/2013 THER/PROPH/DIAG INJ SC/IM CPT-4: 32766 12/30/2013 THER/PROPH/DIAG INJ SC/IM CPT-4: 90233 11/30/2013 VITAMIN B12 INJECTION CPT- 4: J3420 11/30/2013 THER/PROPH/DIAG INJ SC/IM CPT-4: 41431 11/02/2013 VITAMIN B12 INJECTION CPT- 4: J3420 11/02/2013 THER/PROPH/DIAG INJ SC/IM CPT-4: 04569 08/31/2013 VITAMIN B12 INJECTION CPT- 4: J3420 08/31/2013 THER/PROPH/DIAG INJ SC/IM CPT-4: 46802 08/04/2013 VITAMIN B12 INJECTION CPT- 4: J3420 08/04/2013 VITAMIN B12 INJECTION CPT- 4: J3420 07/06/2013 THER/PROPH/DIAG INJ SC/IM CPT-4: 04208 07/06/2013 THER/PROPH/DIAG INJ SC/IM CPT-4: 34940 05/31/2013 VITAMIN B12 INJECTION CPT- 4: J3420 05/31/2013 ADMIN INFLUENZA VIRUS VAC CPT-4: G0008 05/04/2013 FLULAVAL VACC, 3 YRS & >, IM CPT-4: Q2036 05/04/2013 THER/PROPH/DIAG INJ SC/IM CPT-4: 51783 05/04/2013 VITAMIN B12 INJECTION CPT- 4: J3420 05/04/2013 THER/PROPH/DIAG INJ SC/IM CPT-4: 33832 03/30/2013 VITAMIN B12 INJECTION CPT- 4: J3420 03/30/2013 THER/PROPH/DIAG INJ SC/IM CPT-4: 01218 03/02/2013 VITAMIN B12 INJECTION CPT- 4: J3420 03/02/2013 [id number] EST. PATIENT, LEVEL IV CPT-4: 84049 03/02/2013 THER/PROPH/DIAG INJ SC/IM CPT-4: 07539 02/02/2013 VITAMIN B12 INJECTION CPT- 4: J3420 02/02/2013 THER/PROPH/DIAG INJ SC/IM CPT-4: 00853 12/29/2012 VITAMIN B12 INJECTION CPT- 4: J3420 12/29/2012 TRIAMCINOLONE ACET INJ NOS CPT-4: J3301 12/01/2012 VITAMIN B12 INJECTION CPT- 4: J3420 12/01/2012 VITAMIN B12 INJECTION CPT- 4: J3420 11/03/2012 THER/PROPH/DIAG INJ SC/IM CPT-4: 68934 11/03/2012 THER/PROPH/DIAG INJ SC/IM CPT-4: 29570 09/30/2012 VITAMIN B12 INJECTION CPT- 4: J3420 09/30/2012 PRESCRIP TRANSMIT VIA ERX SY CPT-4: G8553 09/30/2012 VITAMIN B12 INJECTION CPT- 4: J3420 09/08/2012 THER/PROPH/DIAG INJ SC/IM CPT-4: 58884 09/08/2012 THER/PROPH/DIAG INJ SC/IM CPT-4: 54604 08/25/2012 ROUTINE VENIPUNCTURE CPT- 4: 25137 08/25/2012 VITAMIN B12 INJECTION CPT- 4: J3420 08/25/2012 THER/PROPH/DIAG INJ SC/IM CPT-4: 02462 08/11/2012 VITAMIN B12 INJECTION CPT- 4: J3420 08/11/2012 VITAMIN B12 INJECTION CPT- 4: J3420 07/21/2012 THER/PROPH/DIAG INJ SC/IM CPT-4: 68601 07/21/2012 THER/PROPH/DIAG INJ SC/IM CPT-4: 57817 07/07/2012 VITAMIN B12 INJECTION CPT- 4: J3420 07/07/2012 ROUTINE VENIPUNCTURE CPT- 4: 43868 07/07/2012 VITAMIN B12 INJECTION CPT- 4: J3420 06/25/2012 THER/PROPH/DIAG INJ SC/IM CPT-4: 16265 06/25/2012 VITAMIN B12 INJECTION CPT- 4: J3420 06/09/2012 THER/PROPH/DIAG INJ SC/IM CPT-4: 43857 06/09/2012 VITAMIN B12 INJECTION CPT- 4: J3420 05/25/2012 THER/PROPH/DIAG INJ SC/IM CPT-4: 29077 05/25/2012 VITAMIN B12 INJECTION CPT- 4: J3420 05/12/2012 THER/PROPH/DIAG INJ SC/IM CPT-4: 52449 05/12/2012 VITAMIN B12 INJECTION CPT- 4: J3420 04/20/2012 THER/PROPH/DIAG INJ SC/IM CPT-4: 30203 04/20/2012 THER/PROPH/DIAG INJ SC/IM CPT-4: 40121 04/07/2012 VITAMIN B12 INJECTION CPT- 4: J3420 04/07/2012 VITAMIN B12 INJECTION CPT- 4: J3420 03/10/2012 THER/PROPH/DIAG INJ SC/IM CPT-4: 66313 03/10/2012 VITAMIN B12 INJECTION CPT- 4: J3420 02/18/2012 THER/PROPH/DIAG INJ SC/IM CPT-4: 35724 02/18/2012 THER/PROPH/DIAG INJ SC/IM CPT-4: 01446 02/04/2012 VITAMIN B12 INJECTION CPT- 4: J3420 02/04/2012 THER/PROPH/DIAG INJ SC/IM CPT-4: 10510 01/21/2012 VITAMIN B12 INJECTION CPT- 4: J3420 01/21/2012 VITAMIN B12 INJECTION CPT- 4: J3420 01/07/2012 VITAMIN B12 INJECTION CPT- 4: J3420 12/17/2011 URINALYSIS NONAUTO W/O SCOPE CPT-4: 86565 12/10/2011 ROUTINE VENIPUNCTURE CPT- 4: 71648 12/10/2011 URINALYSIS NONAUTO W/O SCOPE CPT-4: 68821 11/26/2011 Vital Signs Date Vital 11/05/2017 Blood Pressure 1: 136/82 Code: 8480-6 BMI: 25.7 Code: 22728-5 Heart Rate 1: 78 bpm Height: 5'7" SpO2: 97% Weight: 164 lbs 10/28/2017 Height: 5'7" 12/18/2015 Blood Pressure 1: 140/68 Code: 8480-6 BMI: 25.7 Code: 20775-5 Heart Rate 1: 83 bpm Height: 5'7" SpO2: 95% Weight: 164 lbs 10/11/2015 Blood Pressure 1: 128/80 Code: 8480-6 BMI: 26.0 Code: 85300-3 Heart Rate 1: 80 bpm Height: 5'7" SpO2: 97% Waist Measure (cm): 89 cm Weight: 166 lbs 01/16/2015 Blood Pressure 1: 122/84 Code: 8480-6 BMI: 25.7 Code: 85361-4 Heart Rate 1: 68 bpm Height: 5'7" SpO2: 95% Weight: 164 lbs 08/02/2014 Blood Pressure 1: 140/86 Code: 8480-6 BMI: 25.1 Code: 38372-0 Heart Rate 1: 64 bpm Height: 5'7" Weight: 160 lbs 03/02/2013 Blood Pressure 1: 108/74 Code: 8480-6 BMI: 28.3 Code: 11957-7 Heart Rate 1: 80 bpm Height: 5'7" Weight: 181 lbs 09/30/2012 Blood Pressure 1: 126/74 Code: 8480-6 Heart Rate 1: 64 bpm Weight: 07/07/2012 Blood Pressure 1: 130/84 Code: 8480-6 BMI: 26.6 Code: 29805-1 Heart Rate 1: 80 bpm Height: 5'7" [...] 1: 110/68 Code: 8480-6 BMI: 25.7 Code: 94214-6 Heart Rate 1: 68 bpm Height: 5'7" [...] data Encounters Encounter Performer Location Codes Date 68285 EST. PATIENT, LEVEL III Diagnosis: Other schizophrenia[ICD10: F20.89] Diagnosis: Generalized anxiety disorder[ICD10: F41.1] Diagnosis: Major depressive disorder, single episode, moderate[ICD10: F32.1] Susan Vitale MD, [facility] CPT-4: 87165 11/05/2017 11082 EST. PATIENT, LEVEL III Diagnosis: Encounter for follow-up examination after completed treatment for conditions other than malignant neoplasm[ICD10: Z09] [facility] CPT-4: 18446 12/18/2015 [id number] EST. PATIENT, LEVEL IV Diagnosis: Cellulitis of right lower limb[ICD10: L03.115] Diagnosis: Vitamin B12 deficiency anemia due to intrinsic factor deficiency[ICD10: D51.0] [facility] CPT-4: 09954 12/04/2015 ([id number]) Miscellaneous no charge Diagnosis: Vitamin B deficiency, unspecified[ICD10: E53.9] [facility] CPT-4: 92225 07/31/2015 ([id number]) 10789 EST. PATIENT, LEVEL IV Diagnosis: Schizophrenia[ICD9: 295.90] Diagnosis: DEPRESSIVE DISORDER NEC[ICD9: 311] Diagnosis: Medication dose changed[ICD9: V58.69] Diagnosis: Leg pain[ICD9: 729.5] Loren Vitale MD, [facility] CPT-4: 76853 01/16/2015 ([id number]) 38186 EST. PATIENT, LEVEL III Diagnosis: Rash[ICD9: 782.1] Camille Vitale MD, [facility] CPT-4: 60861 08/02/2014 ([id number]) Miscellaneous no charge Diagnosis: SCHIZO NOS, CHRN[ICD9: 295.92] Loren Vitale MD, [facility] CPT-4: 91660 05/03/2013 ([id number]) 94899 EST. PATIENT, LEVEL III Diagnosis: Rash[ICD9: 782.1] Diagnosis: B-COMPLEX DEFIC NEC[ICD9: 266.2] Loren Vitale MD, [facility] CPT-4: 54642 09/30/2012 ([id number]) 37458 EST. PATIENT, LEVEL IV Diagnosis: SCHIZO NOS, CHRN[ICD9: 295.92] Diagnosis: DEMEN NOS W/O BEHV DSTRB[ICD9: 294.20] Loren Vitale MD, [facility] CPT-4: 75829 07/07/2012 ([id number]) 55307 EST. PATIENT, LEVEL IV Diagnosis: DEMEN NOS W/O BEHV DSTRB[ICD9: 294.20] Diagnosis: SCHIZO NOS, CHRN[ICD9: 295.92] Diagnosis: Vitamin B 12 deficiency[ICD9: 266.2] Loren Vitale MD, [facility] CPT- 4: 81671 01/07/2012 ([id number]) 10884 EST. PATIENT, LEVEL IV Diagnosis: DEMEN NOS W/O BEHV DSTRB[ICD9: 294.20] Diagnosis: ALTERED MENTAL STATUS[ICD9: 780.97] Diagnosis: Myalgia[ICD9: 729.1] Loren Vitale MD, [facility] CPT-4: 35697 12/17/2011 ([id number]) 65632 EST. PATIENT, LEVEL IV Diagnosis: Orthostatic hypotension[ICD9: 458.0] Diagnosis: Hypokalemia[ICD9: 276.8] Diagnosis: DEMEN NOS W/O BEHV DSTRB[ICD9: 294.20] Diagnosis: SCHIZO NOS, CHRN[ICD9: 295.92] Diagnosis: ALTERED MENTAL STATUS[ICD9: 780.97] [facility] CPT-4: 55160 12/10/2011 OFFICE/OUTPATIENT VISIT NEW Diagnosis: Schizophrenia, chronic condition[ICD9: 295.92] Diagnosis: Encounter for long-term (current) use of other high-risk medications[ICD9: V58.69] [facility] CPT-4: 62595 11/26/2011 Plan of Care Planned Activity Notes Codes Status Date Patient Education: Patient Medication Summary Completed 08/28/2018 [...] medications. 11/05/2017 Appointment: Susan Rudd WPtel: [phone] [facility] [place] ([place] min) [facility] 11/05/2017 Patient Education: Patient Medication Summary [...] in pain. 12/18/2015 Appointment: Susan Rudd WPtel: [facility] [place] (30 min) [facility] 12/18/2015 Patient Education: Patient Medication Summary [...] in pain. 12/04/2015 Appointment: Susan Rudd WPtel: [address] [place], [place] [id number] (10 min) [facility] 12/04/2015 Patient Education: Patient Medication Summary Completed [...] paperwork for health care surrogate. 10/11/2015 Appointment: [facility] - Annual Wellness Visit 10/11/2015 [...] labs. 01/16/2015 Appointment: [phone] [place] (15 min) Moderate 01/16/2015 Patient Education: Patient Medication Summary Completed 01/16/2015 Appointment: Injection 01/02/2015 Patient Education: Patient Medication Summary Completed 01/02/2015 Patient Education: Patient Medication Summary Completed 11/28/2014 Patient Education: Patient Medication Summary Completed 10/31/2014 Patient Education: Patient Medication Summary Completed 10/03/2014 Patient Education: Patient Medication Summary Completed 08/30/2014 Visit Plan: [id number] cream to affected area twice daily as directed-call if rash does not completely resolve B12 deficiency-B12 injection today in the office 08/02/2014 Appointment: Camille Devi [facility]Ptel[facility] [phone] [facility] [place] [address] [place] S[place] 08/02/2014 Patient Education: Patient Medication Summary Completed 08/02/2014 Patient Education: Patient Medication Summary Completed 07/04/2014 Patient Education: Patient Medication Summary Completed 05/30/2014 Appointment: Loren Vitale [facility]el[facility] [phone] [facility] [place] [place] Injection 05/02/2014 Patient Education: Patient Medication Summary Completed 05/02/2014 Patient Education: Patient Medication Summary Completed 04/05/2014 Appointment: Camille Devi WPtel: [phone] [facility] [address] [place] Injection 03/07/2014 Patient Education: Patient Medication Summary Completed 03/07/2014 Appointment: Loren Vitale [facility]el[facility] [phone] [facility] [place] [place] In[place] 02/01/2014 Patient Education: Patient Medication Summary Completed 02/01/2014 Appointment: Loren Vitlae [facility]el[facility] [phone] [facility] [place] [place] Injection 12/30/2013 Patient Education: Patient Medication Summary Completed 12/30/2013 Appointment: Loren Vitale [facility]el[place] [phone] [facility] [place] [place] Injection 11/30/2013 Patient Education: Patient Medication Summary Completed 11/30/2013 Appointment: Camille Devi WPtel: [phone] [facility] [address] [place] Injection 11/02/2013 Patient Education: Patient Medication Summary Completed 11/02/2013 Appointment: Loren Vitale [facility]Ptel: [phone] [facility] [place] [place] Injection 09/28/2013 Appointment: Veronica Vitaley [facility]el[place] [phone] [facility] [place] [place] Injection 08/31/2013 Patient Education: Patient Medication Summary Completed 08/31/2013 Patient Education: Patient Medication Summary Completed 08/04/2013 Appointment: Loren Vitale [facility]el[place] [phone] [facility] [place] [place] Injection 08/03/2013 Appointment: Loren Vitale WPtel: [phone] [facility] [place] [place] Injection 07/06/2013 Patient Education: Patient Medication Summary Completed 07/06/2013 Appointment: Camille Devi WPtel: [phone] [facility] [address] [place] Injection 05/31/2013 Patient Education: Patient Medication Summary Completed 05/31/2013 Appointment: Camille Devi WPtel: [phone] [facility] [address] [place] Injection 05/04/2013 Patient Education: Patient Medication [...] psychiatrist. 05/03/2013 Appointment: Loren Vitale [facility]el[facility] [phone] [facility] [place] [place] Other 05/03/2013 Patient Education: Patient Medication Summary Completed 05/03/2013 Appointment: Camille Devi WPtel: [phone] [facility] [address] [place] Injection 03/30/2013 Patient Education: Patient Medication [...] He is to see Dr. Treviño at [facility]. 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 03/02/2013 Appointment: Loren Vitale [facility]Ptel[facility] [phone] [facility] [place] [place] Follow up 03/02/2013 Patient Education: Patient Medication Summary Completed 03/02/2013 Appointment: Loren Vitale WPtel: [phone] [facility] [place] [place] Injection 02/02/2013 Patient Education: Patient Medication Summary Completed 02/02/2013 Patient Education: Patient Medication Summary Completed 12/29/2012 Appointment: Camille Devi WPtel: [phone] [facility] [address] [place] Injection 12/01/2012 Patient Education: Patient Medication Summary Completed 12/01/2012 Appointment: Loren Vitale [facility]Ptel[facility] [phone] [facility] [place] [place] In[place] 11/03/2012 Patient Education: Patient Medication Summary Completed 11/03/2012 Visit Plan: Rash-discussed natural and expected course of this diagnosis and to alert me if symptoms do not follow expected course, or if any worse. RX sent to patient's pharmacy and instructed on use. B12 def-injection today in the office 09/30/2012 Appointment: [phone] [facility] [place] Other 09/30/2012 Patient Education: Patient Medication Summary Completed 09/30/2012 Patient Education: Patient Medication Summary Completed 09/08/2012 Appointment: Camille Devi WPtel: [phone] [facility] [place] [place] Injection 08/25/2012 Patient Education: Patient Medication Summary Completed 08/25/2012 Appointment: Loren Vitale [facility]el[facility] [phone] [facility] [place] [place] 08/11/2012 Patient Education: Patient Medication Summary Completed 08/11/2012 Appointment: Loren Vitale [facility]el[place] [phone] [facility] [place] [place] 07/21/2012 Patient Education: Patient Medication [...] He is to see Dr. Treviño at [facility]. 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 07/07/2012 Appointment: Loren Vitale WPtel: [facility] [place] [place] Follow up 07/07/2012 Patient Education: Patient Medication Summary Completed 07/07/2012 Patient Education: Patient Medication Summary Completed 06/25/2012 Patient Education: Patient Medication Summary Completed 06/09/2012 Patient Education: Patient Medication Summary Completed 05/25/2012 Appointment: Loren Vitale WPtel: [phone] [facility] [place] [place] Injection 05/12/2012 Patient Education: Patient Medication Summary Completed 05/12/2012 Patient Education: Patient Medication Summary Completed 04/20/2012 Appointment: Camille Devi WPtel: [phone] [facility] [phone] [place] Injection 04/07/2012 Patient Education: Patient Medication Summary Completed 04/07/2012 Appointment: Camille Devi WPtel: [phone] [facility] [address] [place] Injection 03/24/2012 Appointment: Camille Devi WPtel: [phone] [facility] [address] [place] Injection 03/10/2012 Patient Education: Patient Medication Summary Completed 03/10/2012 Appointment: Loren Vitale [facility]Ptel: [phone] [facility] [place] [place] 02/18/2012 Patient Education: Patient Medication Summary Completed 02/18/2012 Appointment: Loren Vitale [facility]Ptel: [phone] [facility] [place] [place] 02/04/2012 Patient Education: Patient Medication Summary Completed 02/04/2012 Appointment: Loren Vitale [facility]Ptel: [phone] [facility] [place] [place] 01/21/2012 Patient Education: Patient Medication [...] normal. 01/07/2012 Appointment: Loren Vitale [facility]Ptel: [phone] [facility] [place] [place] Other 01/07/2012 Patient Education: Patient Medication [...] rosa of Juan's psychiatrist who is in [place], but he is apparently on vacation to the [facility] and may not respond until he gets back in December. I think that Juan's medications need adjusted and that is the largest part of his new symptoms. 12/17/2011 Appointment: Loren Vitale WPtel: [phone] [facility] [place] [place] 12/17/2011 Patient Education: Patient Medication Summary [...] assistance. 12/10/2011 Appointment: Camille Devi WPtel: [phone] [phone] Work-in 12/10/2011 Patient Education: Patient Medication Summary [...] first get [place] the [place] prior to starting on the [place]. His UA was negative. Time based documentation -I spent over 60 minutes with the patient in discussion of the disease process, expected course, and overall prognosis for the patient's disease state. The patient/family expressed understanding. 11/26/2011 Appointment: Loren Vitale [facility]Ptel: [phone] [facility] [place] [place] New Patient 11/26/2011 Patient Education: Patient [...] He is to see Dr. Treviño at [facility]. B 12 deficiency and folate deficiency [...] disease state. The patient/family expressed understanding. . Rjiq-tyalcsaq-dqfzaclwrwbxk cream to affected area twice daily as [...] rosa of Juan's psychiatrist who is in [place], but he is apparently on vacation to the [facility] and may not respond until he [...] He is to see Dr. Treviño at [facility]. B 12 deficiency and folate deficiency [...]
--- OUTSIDE RECORDS SUMMARY | 2018-12-22 16:03 | XMS REPORT | CCD ---
Author Author Loren Vitale MD, [facility] Address [address] [place] [address] Phone Care Team Providers [facility] [place] Superintendent Name Role Phone PP Unavailable CCM Unavailable Summary Purpose Interface Exchange Insurance Providers Payer name Policy type / Coverage type Covered democrat ID Effective Begin Date Effective End Date WPS Medicare Part B Medicare Part B [id number] Unknown [place] [employer] Medicare Part B [id number] Unknown Family history Sister Diagnosis Age At Onset No Family Disease Entered N/A First cousin Diagnosis Age At Onset No Family Disease Entered N/A Mother Diagnosis Age At Onset Dementia Unknown Social History Social History Element Codes Description Effective Dates Marital status Unknown Single 11/26/[address]: 09569453 Current every day smoker 2 packs daily 11/26/[address]: 800704595 Never drinks alcohol 11/26/2011 Has the patient [...] V04.81 ICD-10: Z23 Active 2018 Unknown Vitamin B12 deficiency anemia due to intrinsic factor deficiency ICD-9: 281.0 ICD-10: D51.0 Active 07/01/2016 Unknown Vitamin B deficiency, unspecified ICD-9: 266.2 ICD-10: E53.9 Active 01/28/2016 Unknown Generalized anxiety disorder ICD-9: 300.00 ICD-10: F41.1 Active 11/05/2017 Unknown Major depressive disorder, single episode, unspecified ICD-9: 311 ICD-10: F32.9 Active 11/05/2017 Unknown Other schizophrenia ICD- 9: 295.90 ICD-10: F20.89 Active 11/05/2017 Unknown Vitamin B12 deficiency anemia, unspecified ICD-9: 281.1 ICD-10: D51.9 Active 2015 Unknown Encounter for immunization ICD-9: V03.9 ICD-10: [...] ICD-9: V04.81 ICD-10: Z23 2018 Active Vitamin B12 deficiency anemia due to intrinsic factor deficiency ICD-9: 281.0 ICD-10: D51.0 07/01/2016 Active Vitamin B deficiency, unspecified ICD-9: 266.2 ICD-10: E53.9 01/28/2016 Active Generalized anxiety disorder ICD-9: 300.00 ICD-10: F41.1 11/05/2017 Active Major depressive disorder, single episode, unspecified ICD-9: 311 ICD-10: F32.9 11/05/2017 Active Other schizophrenia ICD- 9: 295.90 ICD-10: F20.89 11/05/2017 Active Vitamin B12 deficiency anemia, unspecified ICD-9: 281.1 ICD-10: D51.9 2015 Active Encounter for immunization ICD-9: V03.9 ICD-10: [...] (vit B-12) 1,000 mcg/mL injection solution RxNorm: 944785 Milliliter(s) Inj 07/01/2018 07/01/2018 Inactive cyanocobalamin (vit B-12) 1,000 mcg/mL injection solution RxNorm: 227548 Milliliter(s) Inj 2018 2018 Inactive Wellbutrin SR 100 mg tablet, 12 hr sustained-release RxNorm: 964395 TAKE ONE TABLET BY MOUTH EVERY NIGHT AT BEDTIME 04/28/2018 10/24/2018 Active cyanocobalamin (vit B-12) 1,000 mcg/mL injection solution RxNorm: 541296 Milliliter(s) Inj 03/30/2018 03/30/2018 Inactive cyanocobalamin (vit B-12) 1,000 mcg/mL injection solution RxNorm: 239326 1 Milliliter(s) Inj 03/03/2018 03/03/2018 Inactive cyanocobalamin (vit B-12) 1,000 mcg/mL injection solution RxNorm: 078700 1 Milliliter(s) Inj 01/28/2018 01/28/2018 Inactive cyanocobalamin (vit B-12) 1,000 mcg/mL injection solution RxNorm: 285631 Milliliter(s) Inj 12/29/2017 12/29/2017 Inactive cyanocobalamin (vit B-12) 1,000 mcg/mL injection solution RxNorm: 717627 1 Milliliter(s) Inj 12/01/2017 12/01/2017 Inactive Wellbutrin SR 100 mg tablet, 12 hr sustained-release RxNorm: 451442 TAKE ONE TABLET BY MOUTH EVERY NIGHT AT BEDTIME 10/28/2017 04/25/2018 Inactive cyanocobalamin (vit B-12) 1,000 mcg/mL injection solution RxNorm: 065795 1 Milliliter(s) Inj 10/28/2017 10/28/2017 Inactive cyanocobalamin (vit B-12) 1,000 mcg/mL injection solution RxNorm: 707211 Milliliter(s) Inj 09/29/2017 09/29/2017 Inactive cyanocobalamin (vit B-12) 1,000 mcg/mL injection solution RxNorm: 721130 Milliliter(s) Inj 09/02/2017 09/02/2017 Inactive cyanocobalamin (vit B-12) 1,000 mcg/mL injection solution RxNorm: 501667 Milliliter(s) Inj 08/04/2017 08/04/2017 Inactive cyanocobalamin (vit B-12) 1,000 mcg/mL injection solution RxNorm: 027476 1 Milliliter(s) Inj 07/01/2017 07/01/2017 Inactive cyanocobalamin (vit B-12) 1,000 mcg/mL injection solution RxNorm: 739817 Milliliter(s) Inj 05/30/2017 05/30/2017 Inactive cyanocobalamin (vit B-12) 1,000 mcg/mL injection solution RxNorm: 111828 1 Milliliter(s) Inj 2017 2017 Inactive Wellbutrin SR 100 mg tablet, 12 hr sustained-release RxNorm: 649711 TAKE ONE TABLET BY MOUTH EVERY NIGHT AT BEDTIME 04/23/2017 10/19/2017 Inactive cyanocobalamin (vit B-12) 1,000 mcg/mL injection solution RxNorm: 117139 Milliliter(s) Inj 03/31/2017 03/31/2017 Inactive cyanocobalamin (vit B-12) 1,000 mcg/mL injection solution RxNorm: 303838 Milliliter(s) Inj 02/28/2017 02/28/2017 Inactive cyanocobalamin (vit B-12) 1,000 mcg/mL injection solution RxNorm: 286754 Milliliter(s) Inj 02/03/2017 02/03/2017 Inactive cyanocobalamin (vit B-12) 1,000 mcg/mL injection solution RxNorm: 369125 1 Milliliter(s) Inj 12/30/2016 12/30/2016 Inactive cyanocobalamin (vit B-12) 1,000 mcg/mL injection solution RxNorm: 170334 1 Milliliter(s) Inj 12/02/2016 12/02/2016 Inactive Wellbutrin SR 100 mg tablet, 12 hr sustained-release RxNorm: 594458 TAKE ONE TABLET BY MOUTH EVERY NIGHT AT BEDTIME 10/30/2016 04/22/2017 Inactive cyanocobalamin (vit B-12) 1,000 mcg/mL injection solution RxNorm: 326004 Milliliter(s) Inj 10/29/2016 10/29/2016 Inactive cyanocobalamin (vit B-12) 1,000 mcg/mL injection solution RxNorm: 850228 1 Milliliter(s) Inj 10/01/2016 10/01/2016 Inactive cyanocobalamin (vit B-12) 1,000 mcg/mL injection solution RxNorm: 852829 Milliliter(s) Inj 09/02/2016 09/02/2016 Inactive cyanocobalamin (vit B-12) 1,000 mcg/mL injection solution RxNorm: 773391 Milliliter(s) Inj 08/05/2016 08/05/2016 Inactive cyanocobalamin (vit B-12) 1,000 mcg/mL injection solution RxNorm: 756742 1 Milliliter(s) Inj 07/02/2016 07/02/2016 Inactive cyanocobalamin (vit B-12) 1,000 mcg/mL injection solution RxNorm: 961998 Milliliter(s) Inj 06/03/2016 06/03/2016 Inactive cyanocobalamin (vit B-12) 1,000 mcg/mL injection solution RxNorm: 315321 Milliliter(s) Inj 2016 2016 Inactive Wellbutrin SR 100 mg tablet,sustained-release RxNorm: 101898 1 Tablet(s) PO QHS 04/01/2016 10/27/2016 Inactive cyanocobalamin (vit B-12) 1,000 mcg/mL injection solution RxNorm: 271452 Milliliter(s) Inj 04/01/2016 04/01/2016 Inactive cyanocobalamin (vit B-12) 1,000 mcg/mL injection solution RxNorm: 866709 1 Milliliter(s) Inj 03/05/2016 03/05/2016 Inactive cyanocobalamin (vit B-12) 1,000 mcg/mL injection solution RxNorm: 992756 Milliliter(s) Inj 01/29/2016 01/29/2016 Inactive cyanocobalamin (vit B-12) 1,000 mcg/mL injection solution RxNorm: 249472 Milliliter(s) Inj 01/02/2016 01/02/2016 Inactive mupirocin 2 % topical ointment RxNorm: 309012 1 Application TOP BID 12/04/2015 No Stop Date Active doxycycline hyclate 100 mg capsule RxNorm: 2666187 1 Capsule(s) PO BID 12/04/2015 12/13/2015 Inactive cyanocobalamin (vit B-12) 1,000 mcg/mL injection solution RxNorm: 817746 Milliliter(s) Inj 10/30/2015 10/30/2015 Inactive cyanocobalamin (B12)-cobamamide 5,000 mcg-100 mcg sublingual tablet RxNorm: 497792 Tablet(s) SL 10/02/2015 10/02/2015 Inactive Wellbutrin SR 100 mg tablet,sustained-release RxNorm: 573976 1 Tablet(s) PO QHS 09/08/2015 03/31/2016 Inactive cyanocobalamin (vit B-12) 1,000 mcg/mL injection solution RxNorm: 906228 Milliliter(s) Inj 08/29/2015 08/29/2015 Inactive cyanocobalamin (vit B-12) 1,000 mcg/mL injection solution RxNorm: 636425 Milliliter(s) Inj 07/31/2015 07/31/2015 Inactive cyanocobalamin (vit B-12) 1,000 mcg/mL injection solution RxNorm: 322657 Milliliter(s) Inj 06/05/2015 06/05/2015 Inactive cyanocobalamin (vit B-12) 1,000 mcg/mL injection solution RxNorm: 457781 Milliliter(s) Inj 05/01/2015 05/01/2015 Inactive cyanocobalamin (vit B-12) 1,000 mcg/mL injection solution RxNorm: 399757 Milliliter(s) Inj 04/03/2015 04/03/2015 Inactive cyanocobalamin (vit B-12) 1,000 mcg/mL injection solution RxNorm: 912742 Milliliter(s) Inj 02/28/2015 02/28/2015 Inactive cyanocobalamin (vit B-12) 1,000 mcg/mL injection solution RxNorm: 336864 Milliliter(s) Inj 01/30/2015 01/30/2015 Inactive Wellbutrin SR 100 mg tablet,sustained-release RxNorm: 595210 1 Tablet(s) PO QHS 01/16/2015 08/13/2015 Inactive cyanocobalamin (vit B-12) 1,000 mcg/mL injection solution RxNorm: 347280 1 Milliliter(s) Inj 01/02/2015 01/02/2015 Inactive cyanocobalamin (vit B-12) 1,000 mcg/mL injection solution RxNorm: 118447 1 Milliliter(s) Inj 11/28/2014 11/28/2014 Inactive cyanocobalamin (vit B-12) 1,000 mcg/mL injection solution RxNorm: 926629 Milliliter(s) Inj 10/31/2014 10/31/2014 Inactive [SAVINGS FOR NON-COVERED DRUGS -- BIN:271979, PCN: [id number], Group: XXXXX, ID# [id number], Questions: . THIS IS NOT INSURANCE.] cyanocobalamin (vit B-12) 1,000 mcg/mL injection solution RxNorm: 082692 1 Milliliter(s) Inj daily 10/03/2014 10/03/2014 Inactive [SAVINGS FOR NON-COVERED DRUGS -- BIN:720873, PCN: ASPROD1, Group: XXXXX, ID# [id number], Questions: . THIS IS NOT INSURANCE.] cyanocobalamin (vit B-12) 1,000 mcg/mL injection solution RxNorm: 511497 Milliliter(s) Inj 08/30/2014 08/30/2014 Inactive [SAVINGS FOR NON-COVERED DRUGS -- BIN:044486, PCN: ASPROD1, Group: XXXXX, ID# [id number], Questions: . THIS IS NOT INSURANCE.] nystatin-triamcinolone 100,000 unit/g-0.1 % topical cream RxNorm: 8932646 1 Application TOP BID 08/02/2014 08/08/2014 Inactive [SAVINGS FOR UNINSURED PATIENTS -- BIN:784097, PCN: ASPROD1, Group: [id number], ID# [id number], Process claim through Verific[employer], for questions: . THIS IS NOT INSURANCE.] cyanocobalamin (vit B-12) 1,000 mcg/mL injection solution RxNorm: 074014 Milliliter(s) Inj 08/02/2014 08/02/2014 Inactive [SAVINGS FOR UNINSURED PATIENTS -- BIN:525388, PCN: ASPROD1, Group: [id number], ID# [id number], Process claim through MedImp[employer], for questions: . THIS IS NOT INSURANCE.] cyanocobalamin (vit B-12) 1,000 mcg/mL injection kit RxNorm: 552464 Milliliter(s) Inj 07/04/2014 07/04/2014 Inactive [SAVINGS FOR UNINSURED PATIENTS -- BIN:675636, PCN: ASPROD1, Group: [id number], ID# [id number], Process claim through [employer], for questions: . THIS IS NOT INSURANCE.] cyanocobalamin (vit B-12) 1,000 mcg/mL injection solution RxNorm: 683833 Milliliter(s) Inj 05/30/2014 05/30/2014 Inactive cyanocobalamin (vit B-12) 1,000 mcg/mL injection solution RxNorm: 845291 Milliliter(s) Inj 05/02/2014 05/02/2014 Inactive cyanocobalamin (vit B-12) 1,000 mcg/mL injection solution RxNorm: 086040 Milliliter(s) Inj 04/05/2014 04/05/2014 Inactive cyanocobalamin (vit B-12) 1,000 mcg/mL injection solution RxNorm: 077564 Milliliter(s) Inj 03/07/2014 03/07/2014 Inactive cyanocobalamin (vit B-12) 1,000 mcg/mL injection solution RxNorm: 748098 1 Milliliter(s) Inj 02/01/2014 02/01/2014 Inactive cyanocobalamin (vit B-12) 1,000 mcg/mL injection solution RxNorm: 444062 1 Milliliter(s) Inj 12/30/2013 12/30/2013 Inactive [SAVINGS FOR UNINSURED PATIENTS -- BIN:917151, PCN: ASPROD1, Group: [id number], ID# [id number], Process claim through [employer], for questions: . THIS IS NOT INSURANCE.] cyanocobalamin (vit B-12) 1,000 mcg/mL injection solution RxNorm: 442973 Milliliter(s) Inj 11/30/2013 11/30/2013 Inactive cyanocobalamin (vit B-12) 1,000 mcg/mL injection solution RxNorm: 878989 1 Milliliter(s) Inj 11/02/2013 11/02/2013 Inactive Vitamin B-12 1,000 mcg/mL injection solution RxNorm: 723074 Milliliter(s) Inj 08/31/2013 08/31/2013 Inactive Vitamin B-12 1,000 mcg/mL injection solution RxNorm: 173533 1 Milliliter(s) Inj 08/04/2013 08/04/2013 Inactive Vitamin B-12 1,000 mcg/mL injection solution RxNorm: 211430 Milliliter(s) Inj 07/06/2013 07/06/2013 Inactive cyanocobalamin (vit B-12) 1,000 mcg/mL injection solution RxNorm: 643281 Milliliter(s) Inj 05/31/2013 05/31/2013 Inactive cyanocobalamin (vit B-12) 1,000 mcg/mL injection kit RxNorm: 014649 Milliliter(s) Inj 05/04/2013 05/04/2013 Inactive cyanocobalamin (vitamin B-12) 1,000 mcg/mL Injection RxNorm: 157106 Milliliter(s) Inj 03/30/2013 03/30/2013 Inactive cyanocobalamin (vitamin B-12) 1,000 mcg/mL Injection RxNorm: 549414 Milliliter(s) Inj 02/02/2013 02/02/2013 Inactive cyanocobalamin (vitamin B-12) 1,000 mcg/mL Injection RxNorm: 536841 Milliliter(s) Inj 12/29/2012 12/29/2012 Inactive cyanocobalamin (vitamin B-12) 1,000 mcg/mL Injection RxNorm: 696666 Milliliter(s) Inj 12/01/2012 12/01/2012 Inactive Vitamin B-12 1,000 mcg tablet RxNorm: 610343 Tablet(s) PO 11/03/2012 11/03/2012 Inactive Vitamin B-12 1,000 mcg/mL Injection RxNorm: 560766 1 Milliliter(s) Inj 09/30/2012 09/30/2012 Inactive triamcinolone acetonide 0.1 % Topical Cream RxNorm: 7495284 1 Application TOP BID 09/30/2012 10/13/2012 Inactive Vitamin B-12 1,000 mcg/mL Injection RxNorm: 070091 1 Milliliter(s) Inj 09/08/2012 09/08/2012 Inactive cyanocobalamin (vitamin B-12) 1,000 mcg/mL Injection RxNorm: 409677 1 Milliliter(s) Inj 08/25/2012 08/25/2012 Inactive cyanocobalamin (vitamin B-12) 1,000 mcg/mL Injection RxNorm: 330140 1 Milliliter(s) Inj 08/11/2012 08/11/2012 Inactive cyanocobalamin (vitamin B-12) 1,000 mcg/mL Injection RxNorm: 199926 1 Milliliter(s) Inj 07/21/2012 07/21/2012 Inactive Vitamin B-12 1,000 mcg/mL Injection RxNorm: 116891 Milliliter(s) Inj 07/07/2012 07/07/2012 Inactive cyanocobalamin (vitamin B-12) 1,000 mcg/mL Injection RxNorm: 466250 1 Milliliter(s) Inj 06/25/2012 06/25/2012 Inactive Vitamin B-12 1,000 mcg/mL Injection RxNorm: 405828 1 Milliliter(s) Inj 06/09/2012 06/09/2012 Inactive Vitamin B-12 1,000 mcg/mL Injection RxNorm: 928855 Milliliter(s) Inj 05/25/2012 05/25/2012 Inactive Vitamin B-12 1,000 mcg/mL Injection RxNorm: 750711 Milliliter(s) Inj 05/12/2012 05/12/2012 Inactive Vitamin B-12 1,000 mcg/mL Injection RxNorm: 266348 Milliliter(s) Inj 04/20/2012 04/20/2012 Inactive Vitamin B-12 1,000 mcg/mL Injection RxNorm: 485991 Milliliter(s) Inj 04/07/2012 04/07/2012 Inactive Vitamin B-12 1,000 mcg/mL Injection RxNorm: 465510 Milliliter(s) Inj 03/10/2012 03/10/2012 Inactive Vitamin B-12 1,000 mcg/mL Injection RxNorm: 345074 Milliliter(s) Inj 02/18/2012 02/18/2012 Inactive Vitamin B-12 1,000 mcg/mL Injection RxNorm: 081021 Milliliter(s) Inj 02/04/2012 02/04/2012 Inactive Vitamin B-12 1,000 mcg/mL Injection RxNorm: 051298 Milliliter(s) Inj 01/21/2012 01/21/2012 Inactive Vitamin B-12 1,000 mcg/mL Injection RxNorm: 124971 Milliliter(s) Inj 01/07/2012 01/07/2012 Inactive Vitamin B-12 1,000 mcg/mL Injection RxNorm: 404420 Milliliter(s) Inj 12/17/2011 12/17/2011 Inactive KCL 10 meq RxNorm: 1 PO daily 12/12/2011 12/16/2011 Inactive Vitamin B-12 1,000 mcg/mL Injection RxNorm: 635796 1 Milliliter(s) Inj monthly No Start Date Active Wellbutrin SR 200 mg Tab RxNorm: 204314 1 Tablet(s) PO daily No Start Date Active Anafranil 25 mg Cap RxNorm: 904173 1 Capsule(s) PO daily No Start Date Active Stelazine 5 mg Tab RxNorm: 670904 1 Tablet(s) PO BID No Start Date Active clonazepam 1 mg Tab RxNorm: 540916 1 Tablet(s) PO BID No Start Date Active risperidone 3 mg Tab RxNorm: 460233 Tablet(s) PO No Start Date Active 2 on even days 3 on odd days Cogentin 1 mg Tab RxNorm: 010549 1 Tablet(s) PO TID No Start Date Active Medication Administered Medication Codes Instructions Start Date Status cyanocobalamin (vit B-12) 1,000 mcg/mL injection solution RxNorm: 586304 Milliliter 07/01/2018 Active cyanocobalamin (vit B-12) 1,000 mcg/mL injection solution RxNorm: 533935 Milliliter 2018 No longer Active cyanocobalamin (vit B-12) 1,000 mcg/mL injection solution RxNorm: 207427 Milliliter 03/30/2018 No longer Active cyanocobalamin (vit B-12) 1,000 mcg/mL injection solution RxNorm: 335218 1Milliliter 03/03/2018 No longer Active cyanocobalamin (vit B-12) 1,000 mcg/mL injection solution RxNorm: 703483 1Milliliter 01/28/2018 No longer Active cyanocobalamin (vit B-12) 1,000 mcg/mL injection solution RxNorm: 470143 Milliliter 12/29/2017 No longer Active cyanocobalamin (vit B-12) 1,000 mcg/mL injection solution RxNorm: 027942 1Milliliter 12/01/2017 No longer Active cyanocobalamin (vit B-12) 1,000 mcg/mL injection solution RxNorm: 287592 1Milliliter 10/28/2017 No longer Active cyanocobalamin (vit B-12) 1,000 mcg/mL injection solution RxNorm: 773828 Milliliter 09/29/2017 No longer Active cyanocobalamin (vit B-12) 1,000 mcg/mL injection solution RxNorm: 697008 Milliliter 09/02/2017 No longer Active cyanocobalamin (vit B-12) 1,000 mcg/mL injection solution RxNorm: 341369 Milliliter 08/04/2017 No longer Active cyanocobalamin (vit B-12) 1,000 mcg/mL injection solution RxNorm: 342803 1Milliliter 07/01/2017 No longer Active cyanocobalamin (vit B-12) 1,000 mcg/mL injection solution RxNorm: 753998 Milliliter 05/30/2017 No longer Active cyanocobalamin (vit B-12) 1,000 mcg/mL injection solution RxNorm: 275918 1Milliliter 2017 No longer Active cyanocobalamin (vit B-12) 1,000 mcg/mL injection solution RxNorm: 554814 Milliliter 03/31/2017 No longer Active cyanocobalamin (vit B-12) 1,000 mcg/mL injection solution RxNorm: 975642 Milliliter 02/28/2017 No longer Active cyanocobalamin (vit B-12) 1,000 mcg/mL injection solution RxNorm: 929344 Milliliter 02/03/2017 No longer Active cyanocobalamin (vit B-12) 1,000 mcg/mL injection solution RxNorm: 563074 1Milliliter 12/30/2016 No longer Active cyanocobalamin (vit B-12) 1,000 mcg/mL injection solution RxNorm: 613395 1Milliliter 12/02/2016 No longer Active cyanocobalamin (vit B-12) 1,000 mcg/mL injection solution RxNorm: 346510 Milliliter 10/29/2016 No longer Active cyanocobalamin (vit B-12) 1,000 mcg/mL injection solution RxNorm: 991923 1Milliliter 10/01/2016 No longer Active cyanocobalamin (vit B-12) 1,000 mcg/mL injection solution RxNorm: 156410 Milliliter 09/02/2016 No longer Active cyanocobalamin (vit B-12) 1,000 mcg/mL injection solution RxNorm: 733459 Milliliter 08/05/2016 No longer Active cyanocobalamin (vit B-12) 1,000 mcg/mL injection solution RxNorm: 019624 1Milliliter 07/02/2016 No longer Active cyanocobalamin (vit B-12) 1,000 mcg/mL injection solution RxNorm: 113361 Milliliter 06/03/2016 No longer Active cyanocobalamin (vit B-12) 1,000 mcg/mL injection solution RxNorm: 943627 Milliliter 2016 No longer Active cyanocobalamin (vit B-12) 1,000 mcg/mL injection solution RxNorm: 277209 Milliliter 04/01/2016 No longer Active cyanocobalamin (vit B-12) 1,000 mcg/mL injection solution RxNorm: 452393 1Milliliter 03/05/2016 No longer Active cyanocobalamin (vit B-12) 1,000 mcg/mL injection solution RxNorm: 440690 Milliliter 01/29/2016 No longer Active cyanocobalamin (vit B-12) 1,000 mcg/mL injection solution RxNorm: 402377 Milliliter 01/02/2016 No longer Active cyanocobalamin (vit B-12) 1,000 mcg/mL injection solution RxNorm: 003074 Milliliter 10/30/2015 No longer Active cyanocobalamin (B12)-cobamamide 5,000 mcg-100 mcg sublingual tablet RxNorm: 684854 Tablet 10/02/2015 No longer Active cyanocobalamin (vit B-12) 1,000 mcg/mL injection solution RxNorm: 620969 Milliliter 08/29/2015 No longer Active cyanocobalamin (vit B-12) 1,000 mcg/mL injection solution RxNorm: 830856 Milliliter 07/31/2015 No longer Active cyanocobalamin (vit B-12) 1,000 mcg/mL injection solution RxNorm: 205744 Milliliter 06/05/2015 No longer Active cyanocobalamin (vit B-12) 1,000 mcg/mL injection solution RxNorm: 775453 Milliliter 05/01/2015 No longer Active cyanocobalamin (vit B-12) 1,000 mcg/mL injection solution RxNorm: 278397 Milliliter 04/03/2015 No longer Active cyanocobalamin (vit B-12) 1,000 mcg/mL injection solution RxNorm: 899558 Milliliter 02/28/2015 No longer Active cyanocobalamin (vit B-12) 1,000 mcg/mL injection solution RxNorm: 313923 Milliliter 01/30/2015 No longer Active cyanocobalamin (vit B-12) 1,000 mcg/mL injection solution RxNorm: 487849 1Milliliter 01/02/2015 No longer Active cyanocobalamin (vit B-12) 1,000 mcg/mL injection solution RxNorm: 898996 1Milliliter 11/28/2014 No longer Active cyanocobalamin (vit B-12) 1,000 mcg/mL injection solution RxNorm: 617267 Milliliter 10/31/2014 No longer Active cyanocobalamin (vit B-12) 1,000 mcg/mL injection solution RxNorm: 580824 1Milliliterdaily 10/03/2014 No longer Active cyanocobalamin (vit B-12) 1,000 mcg/mL injection solution RxNorm: 853001 Milliliter 08/30/2014 No longer Active cyanocobalamin (vit B-12) 1,000 mcg/mL injection solution RxNorm: 265718 Milliliter 08/02/2014 No longer Active cyanocobalamin (vit B-12) 1,000 mcg/mL injection kit RxNorm: 565008 Milliliter 07/04/2014 No longer Active cyanocobalamin (vit B-12) 1,000 mcg/mL injection solution RxNorm: 118461 Milliliter 05/30/2014 No longer Active cyanocobalamin (vit B-12) 1,000 mcg/mL injection solution RxNorm: 313128 Milliliter 05/02/2014 No longer Active cyanocobalamin (vit B-12) 1,000 mcg/mL injection solution RxNorm: 435022 Milliliter 04/05/2014 No longer Active cyanocobalamin (vit B-12) 1,000 mcg/mL injection solution RxNorm: 641709 Milliliter 03/07/2014 No longer Active cyanocobalamin (vit B-12) 1,000 mcg/mL injection solution RxNorm: 233722 1Milliliter 02/01/2014 No longer Active cyanocobalamin (vit B-12) 1,000 mcg/mL injection solution RxNorm: 265441 1Milliliter 12/30/2013 No longer Active cyanocobalamin (vit B-12) 1,000 mcg/mL injection solution RxNorm: 505664 Milliliter 11/30/2013 No longer Active cyanocobalamin (vit B-12) 1,000 mcg/mL injection solution RxNorm: 156740 1Milliliter 11/02/2013 No longer Active Vitamin B-12 1,000 mcg/mL injection solution RxNorm: 530327 Milliliter 08/31/2013 No longer Active Vitamin B-12 1,000 mcg/mL injection solution RxNorm: 773024 1Milliliter 08/04/2013 No longer Active Vitamin B-12 1,000 mcg/mL injection solution RxNorm: 029898 Milliliter 07/06/2013 No longer Active cyanocobalamin (vit B-12) 1,000 mcg/mL injection solution RxNorm: 797785 Milliliter 05/31/2013 No longer Active cyanocobalamin (vit B-12) 1,000 mcg/mL injection kit RxNorm: 111584 Milliliter 05/04/2013 No longer Active cyanocobalamin (vitamin B-12) 1,000 mcg/mL Injection RxNorm: 366366 Milliliter 03/30/2013 No longer Active cyanocobalamin (vitamin B-12) 1,000 mcg/mL Injection RxNorm: 649051 Milliliter 02/02/2013 No longer Active cyanocobalamin (vitamin B-12) 1,000 mcg/mL Injection RxNorm: 178429 Milliliter 12/29/2012 No longer Active cyanocobalamin (vitamin B-12) 1,000 mcg/mL Injection RxNorm: 863878 Milliliter 12/01/2012 No longer Active Vitamin B-12 1,000 mcg tablet RxNorm: 076012 Tablet 11/03/2012 No longer Active Vitamin B-12 1,000 mcg/mL Injection RxNorm: 207710 1Milliliter 09/30/2012 No longer Active Vitamin B-12 1,000 mcg/mL Injection RxNorm: 552957 1Milliliter 09/08/2012 No longer Active cyanocobalamin (vitamin B-12) 1,000 mcg/mL Injection RxNorm: 793792 1Milliliter 08/25/2012 No longer Active cyanocobalamin (vitamin B-12) 1,000 mcg/mL Injection RxNorm: 716559 1Milliliter 08/11/2012 No longer Active cyanocobalamin (vitamin B-12) 1,000 mcg/mL Injection RxNorm: 086576 1Milliliter 07/21/2012 No longer Active Vitamin B-12 1,000 mcg/mL Injection RxNorm: 388290 Milliliter 07/07/2012 No longer Active cyanocobalamin (vitamin B-12) 1,000 mcg/mL Injection RxNorm: 996025 1Milliliter 06/25/2012 No longer Active Vitamin B-12 1,000 mcg/mL Injection RxNorm: 683438 1Milliliter 06/09/2012 No longer Active Vitamin B-12 1,000 mcg/mL Injection RxNorm: 465727 Milliliter 05/25/2012 No longer Active Vitamin B-12 1,000 mcg/mL Injection RxNorm: 206479 Milliliter 05/12/2012 No longer Active Vitamin B-12 1,000 mcg/mL Injection RxNorm: 265078 Milliliter 04/20/2012 No longer Active Vitamin B-12 1,000 mcg/mL Injection RxNorm: 736546 Milliliter 04/07/2012 No longer Active Vitamin B-12 1,000 mcg/mL Injection RxNorm: 902728 Milliliter 03/10/2012 No longer Active Vitamin B-12 1,000 mcg/mL Injection RxNorm: 219095 Milliliter 02/18/2012 No longer Active Vitamin B-12 1,000 mcg/mL Injection RxNorm: 245219 Milliliter 02/04/2012 No longer Active Vitamin B-12 1,000 mcg/mL Injection RxNorm: 696651 Milliliter 01/21/2012 No longer Active Vitamin B-12 1,000 mcg/mL Injection RxNorm: 560655 Milliliter 01/07/2012 No longer Active Vitamin B-12 1,000 mcg/mL Injection RxNorm: 248090 Milliliter 12/17/2011 No longer Active Immunizations Vaccine [...] immunization ICD-10: Z23 ICD-9: V04.81 2018 Vitamin B12 deficiency anemia due to 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 2018 Vitamin B deficiency, unspecified ICD-10: E53.9 ICD-9: 266.2 12/29/2017 Major depressive disorder, single episode, moderate ICD-10: F32.1 ICD-9: 296.22 11/05/2017 Generalized anxiety disorder ICD-10: F41.1 ICD-9: 300.00 11/05/2017 Other schizophrenia ICD-10: F20.89 ICD-9: 295.90 11/05/2017 Vitamin B12 deficiency anemia, unspecified ICD-10: D51.9 ICD-9: 281.1 09/02/2017 Encounter for immunization ICD-10: Z23 ICD-9: V03.9 [...] 05/04/2013 SCHIZO NOS, CHRN ICD-9: 295.92 05/03/2013 Myalgia ICD-9: 729.1 12/17/2011 ALTERED MENTAL STATUS ICD-9: 780.97 12/17/2011 Hypokalemia ICD-9: 276.8 12/10/2011 Orthostatic hypotension [...] Code Item Item Code Result Date B12 Lii094 B12 637.00 pg/ml 07/31/2015 FOLIC ACID 5373953 FOLIC ACID >24.0 NG/ML 08/25/2012 VIT B 12 3957375 VIT B 12 1591 PG/ML 08/25/2012 HOMOCYS 0864599 HOMOCYS 6.8 UMOL/L 08/25/2012 TSH 1151027 TSH 1.386 uIU/ML 07/07/2012 CBC 1762525 WBC 6.4 10e9/L 07/07/2012 CBC 5282069 RBC 4.92 10e12/L 07/07/2012 CBC 9833007 HGB 15.0 g/dL 07/07/2012 CBC 0334394 HCT DET 43.3 % 07/07/2012 CBC 0283649 MCV 88.0 fL 07/07/2012 CBC 3723215 MCH 30.5 pg 07/07/2012 CBC 7427903 MCHC 34.6 g/dL 07/07/2012 CBC 0850536 PLT 180 10e9/L 07/07/2012 CBC 0052753 MPV 10.0 fL 07/07/2012 CBC 4876453 KENRICK % 59.0 % 07/07/2012 CBC 5556897 LY % 24.1 % 07/07/2012 CBC 4806021 MON % 12.5 % 07/07/2012 CBC 0072019 EOS % 4.1 % 07/07/2012 CBC 1412805 BASO % 0.3 % 07/07/2012 CBC 8560060 RDW 13.4 % 07/07/2012 CBC 5808550 ABS KENRICK 3.78 10e9/L 07/07/2012 CBC 9344586 ABS LYMPH 1.54 10e9/L 07/07/2012 CBC 4050248 ABS MONO 0.80 10e9/L 07/07/2012 CBC 6455515 ABS EOS 0.26 10e9/L 07/07/2012 CBC 4284633 ABS BASO 0.02 10e9/L 07/07/2012 CBC 6031412 RDW-SD 42.9 fL 07/07/2012 CHEM 14 2245643 AST 29 U/L 07/07/2012 CHEM 14 5659749 ALT 29 U/L 07/07/2012 CHEM 14 2705299 BUN 9 MG/DL 07/07/2012 CHEM 14 6063885 ALBUMIN 4.1 GM/DL 07/07/2012 CHEM 14 7973832 CHLORIDE 103 MMOL/L 07/07/2012 CHEM 14 2171847 BILI TOT 0.3 MG/DL 07/07/2012 CHEM 14 9462694 ALK PHOS 88 U/L 07/07/2012 CHEM 14 0834204 SODIUM 141 MMOL/L 07/07/2012 CHEM 14 3152444 CREATININE 1.38 MG/DL 07/07/2012 CHEM 14 2257852 CALCIUM 9.3 MG/DL 07/07/2012 CHEM 14 0402422 POTASSIUM 3.7 MMOL/L 07/07/2012 CHEM 14 4410008 PROT TOT 6.4 GM/DL 07/07/2012 CHEM 14 4074830 GLUCOSE 76 MG/DL 07/07/2012 CHEM 14 0981875 BICARB 28 MMOL/L 07/07/2012 CHEM 14 0392320 ANION GAP 10 MMOL/L 07/07/2012 GFR CALC 7646910 GFR AA >60 ML/MIN 07/07/2012 GFR CALC 6990340 GFR NON-AA 52.0L ML/MIN 07/07/2012 B12 FOLAT 9571117 VIT B 12 211 PG/ML 12/10/2011 B12 FOLAT 8759871 FOLIC ACID 3.9 NG/ML 12/10/2011 GFR CALC 7675341 GFR AA >60 ML/MIN 12/10/2011 GFR CALC 9172035 GFR NON-AA >60 ML/MIN 12/10/2011 CPK 3128879 CPK 135 U/L 12/10/2011 CHEM 14 8981378 AST 62 U/L 12/10/2011 CHEM 14 9066432 ALT 114 U/L 12/10/2011 CHEM 14 7144621 BUN 10 MG/DL 12/10/2011 CHEM 14 4782145 ALBUMIN 3.7 GM/DL 12/10/2011 CHEM 14 1426088 CHLORIDE 103 MMOL/L 12/10/2011 CHEM 14 1647897 BILI TOT 0.5 MG/DL 12/10/2011 CHEM 14 3753738 ALK PHOS 129 U/L 12/10/2011 CHEM 14 2339761 SODIUM 140 MMOL/L 12/10/2011 CHEM 14 6255937 CREATININE 1.17 MG/DL 12/10/2011 CHEM 14 0693727 CALCIUM 8.8 MG/DL 12/10/2011 CHEM 14 8462316 POTASSIUM 3.4 MMOL/L 12/10/2011 CHEM 14 9120359 PROT TOT 5.8 GM/DL 12/10/2011 CHEM 14 4764863 GLUCOSE 84 MG/DL 12/10/2011 CHEM 14 9651213 BICARB 26 MMOL/L 12/10/2011 CHEM 14 9505058 ANION GAP 11 MMOL/L 12/10/2011 URINALYSIS NONAUTO W/O SCOPE 66557 Specific [place] 1.005 DateTime(Free Text in Aprima) URINALYSIS NONAUTO W/O SCOPE 78254 PH 6 DateTime(Free Text in Aprima) URINALYSIS NONAUTO W/O SCOPE 99572 GLUCOSE neg DateTime(Free Text in Aprima) URINALYSIS NONAUTO W/O SCOPE 63212 Protein neg DateTime(Free Text in Aprima) URINALYSIS NONAUTO W/O SCOPE 31314 Blood neg DateTime(Free Text in Aprima) URINALYSIS NONAUTO W/O SCOPE 10823 Bilirubin neg DateTime(Free Text in Aprima) URINALYSIS NONAUTO W/O SCOPE 66457 Ketones neg DateTime(Free Text in Aprima) URINALYSIS NONAUTO W/O SCOPE 87440 Urobilinogen neg DateTime(Free Text in Aprima) URINALYSIS NONAUTO W/O SCOPE 33960 Nitrite neg DateTime(Free Text in Aprima) URINALYSIS NONAUTO W/O SCOPE 44924 Leukocytes neg DateTime(Free Text in Aprima) URINALYSIS NONAUTO W/O SCOPE 10896 Specific [place] 1.010 DateTime(Free Text in Aprima) URINALYSIS NONAUTO W/O SCOPE 27882 PH 6.5 DateTime(Free Text in Aprima) URINALYSIS NONAUTO W/O SCOPE 23704 GLUCOSE neg DateTime(Free Text in Aprima) URINALYSIS NONAUTO W/O SCOPE 75713 Protein neg DateTime(Free Text in Aprima) URINALYSIS NONAUTO W/O SCOPE 12761 Blood neg DateTime(Free Text in Aprima) URINALYSIS NONAUTO W/O SCOPE 03915 Bilirubin neg DateTime(Free Text in Aprima) URINALYSIS NONAUTO W/O SCOPE 96908 Ketones neg DateTime(Free Text in Aprima) URINALYSIS NONAUTO W/O SCOPE 17025 Urobilinogen neg DateTime(Free Text in Aprima) URINALYSIS NONAUTO W/O SCOPE 83655 Nitrite neg DateTime(Free Text in Aprima) URINALYSIS NONAUTO W/O SCOPE 46967 Leukocytes neg DateTime(Free Text in Aprima) Review [...] recall three words at five minutes 11/05/2017 [facility] exam points Full Exam - [...] developed 08/02/2014 None Full Exam - General 1995 Constitutional general appearance Overall: in no acute distress 08/02/2014 None Full Exam - General 1995 Constitutional general appearance Overall: well nourished 08/02/2014 [...] recall three words at five minutes 03/02/2013 [facility] Sat exam points Full Exam - Dermatology Constitutional [...] recall three words at five minutes 01/07/2012 [facility] exam points Full Exam - [...] three words at five minutes 12/17/2011 [facility] exam points Full Exam - [...] recall three words at five minutes 12/10/2011 [facility] exam points Full Exam - [...] three words at five minutes 11/26/2011 [facility] exam points Procedures Procedure Codes Date THER/PROPH/DIAG INJ SC/IM CPT-4: 92011 07/01/2018 VITAMIN B12 INJECTION CPT- 4: J3420 07/01/2018 ADMIN INFLUENZA VIRUS VAC CPT-4: G0008 2018 FLU VACC PRSV FREE INC ANTIG CPT-4: 95842 2018 THER/PROPH/DIAG INJ SC/IM CPT-4: 68831 2018 VITAMIN B12 INJECTION CPT- 4: J3420 2018 THER/PROPH/DIAG INJ SC/IM CPT-4: 68310 03/30/2018 VITAMIN B12 INJECTION CPT- 4: J3420 03/30/2018 THER/PROPH/DIAG INJ SC/IM CPT-4: 07217 03/03/2018 VITAMIN B12 INJECTION CPT- 4: J3420 03/03/2018 THER/PROPH/DIAG INJ SC/IM CPT-4: 50816 01/28/2018 VITAMIN B12 INJECTION CPT- 4: J3420 01/28/2018 THER/PROPH/DIAG INJ SC/IM CPT-4: 53935 12/29/2017 VITAMIN B12 INJECTION CPT- 4: J3420 12/29/2017 THER/PROPH/DIAG INJ SC/IM CPT-4: 57457 12/01/2017 VITAMIN B12 INJECTION CPT- 4: J3420 12/01/2017 VITAMIN B12 INJECTION CPT- 4: J3420 10/28/2017 THER/PROPH/DIAG INJ SC/IM CPT-4: 74696 10/28/2017 THER/PROPH/DIAG INJ SC/IM CPT-4: 34949 09/29/2017 VITAMIN B12 INJECTION CPT- 4: J3420 09/29/2017 THER/PROPH/DIAG INJ SC/IM CPT-4: 81914 09/02/2017 VITAMIN B12 INJECTION CPT- 4: J3420 09/02/2017 THER/PROPH/DIAG INJ SC/IM CPT-4: 37815 08/04/2017 VITAMIN B12 INJECTION CPT- 4: J3420 08/04/2017 THER/PROPH/DIAG INJ SC/IM CPT-4: 71346 07/01/2017 VITAMIN B12 INJECTION CPT- 4: J3420 07/01/2017 THER/PROPH/DIAG INJ SC/IM CPT-4: 27226 05/30/2017 VITAMIN B12 INJECTION CPT- 4: J3420 05/30/2017 THER/PROPH/DIAG INJ SC/IM CPT-4: 51151 2017 ADMIN INFLUENZA VIRUS VAC CPT-4: G0008 2017 TOBACCO-USE CORRECTIONS SERGEANT 3-[address]: 057391127 CPT-4: G0436 2017 VITAMIN B12 INJECTION CPT- 4: J3420 2017 FLU VACC PRSV FREE INC ANTIG CPT-4: 24506 2017 TOBACCO-USE CORRECTIONS SERGEANT 3-[address]: 106764295 CPT-4: G0436 03/31/2017 VITAMIN B12 INJECTION CPT- 4: J3420 03/31/2017 THER/PROPH/DIAG INJ SC/IM CPT-4: 06816 02/28/2017 VITAMIN B12 INJECTION CPT- 4: J3420 02/28/2017 THER/PROPH/DIAG INJ SC/IM CPT-4: 90162 02/03/2017 VITAMIN B12 INJECTION CPT- 4: J3420 02/03/2017 TOBACCO-USE CORRECTIONS SERGEANT 3-[address]: 631548785 CPT-4: G0436 12/30/2016 THER/PROPH/DIAG INJ SC/IM CPT-4: 15962 12/30/2016 VITAMIN B12 INJECTION CPT- 4: J3420 12/30/2016 THER/PROPH/DIAG INJ SC/IM CPT-4: 60921 12/02/2016 VITAMIN B12 INJECTION CPT- 4: J3420 12/02/2016 THER/PROPH/DIAG INJ SC/IM CPT-4: 54421 10/29/2016 VITAMIN B12 INJECTION CPT- 4: J3420 10/29/2016 THER/PROPH/DIAG INJ SC/IM CPT-4: 81414 10/01/2016 VITAMIN B12 INJECTION CPT- 4: J3420 10/01/2016 TOBACCO-USE CORRECTIONS SERGEANT 3-[address]: 566511905 CPT-4: G0436 09/02/2016 VITAMIN B12 INJECTION CPT- 4: J3420 09/02/2016 THER/PROPH/DIAG INJ SC/IM CPT-4: 97777 09/02/2016 THER/PROPH/DIAG INJ SC/IM CPT-4: 74313 08/05/2016 VITAMIN B12 INJECTION CPT- 4: J3420 08/05/2016 THER/PROPH/DIAG INJ SC/IM CPT-4: 27588 07/02/2016 VITAMIN B12 INJECTION CPT- 4: J3420 07/02/2016 VITAMIN B12 INJECTION CPT- 4: J3420 06/03/2016 THER/PROPH/DIAG INJ SC/IM CPT-4: 67806 06/03/2016 THER/PROPH/DIAG INJ SC/IM CPT-4: 23306 2016 VITAMIN B12 INJECTION CPT- 4: J3420 2016 THER/PROPH/DIAG INJ SC/IM CPT-4: 04322 04/01/2016 VITAMIN B12 INJECTION CPT- 4: J3420 04/01/2016 VITAMIN B12 INJECTION CPT- 4: J3420 03/05/2016 THER/PROPH/DIAG INJ SC/IM CPT-4: 24844 03/05/2016 TOBACCO-USE CORRECTIONS SERGEANT 3-[address]: 656600830 CPT-4: G0436 01/29/2016 THER/PROPH/DIAG INJ SC/IM CPT-4: 72988 01/29/2016 VITAMIN B12 INJECTION CPT- 4: J3420 01/29/2016 THER/PROPH/DIAG INJ SC/IM CPT-4: 77338 01/02/2016 VITAMIN B12 INJECTION CPT- 4: J3420 01/02/2016 VITAMIN B12 INJECTION CPT- 4: J3420 12/04/2015 THER/PROPH/DIAG INJ SC/IM CPT-4: 19659 12/04/2015 THER/PROPH/DIAG INJ SC/IM CPT-4: 21752 10/30/2015 VITAMIN B12 INJECTION CPT- 4: J3420 10/30/2015 PPPS, SUBSEQ VISIT CPT- 4: G0439 10/11/2015 TOBACCO-USE CORRECTIONS SERGEANT 3-[address]: 428892347 CPT-4: G0436 10/11/2015 TOBACCO-USE CORRECTIONS SERGEANT 3-[address]: 798807057 CPT-4: G0436 10/02/2015 THER/PROPH/DIAG INJ SC/IM CPT-4: 92928 10/02/2015 VITAMIN B12 INJECTION CPT- 4: J3420 10/02/2015 THER/PROPH/DIAG INJ SC/IM CPT-4: 41808 08/29/2015 VITAMIN B12 INJECTION CPT- 4: J3420 08/29/2015 THER/PROPH/DIAG INJ SC/IM CPT-4: 04781 07/31/2015 VITAMIN B12 INJECTION CPT- 4: J3420 07/31/2015 THER/PROPH/DIAG INJ SC/IM CPT-4: 65433 07/03/2015 VITAMIN B12 INJECTION CPT- 4: J3420 07/03/2015 THER/PROPH/DIAG INJ SC/IM CPT-4: 55009 06/05/2015 VITAMIN B12 INJECTION CPT- 4: J3420 06/05/2015 VITAMIN B12 INJECTION CPT- 4: J3420 05/01/2015 THER/PROPH/DIAG INJ SC/IM CPT-4: 09982 05/01/2015 THER/PROPH/DIAG INJ SC/IM CPT-4: 59909 04/03/2015 VITAMIN B12 INJECTION CPT- 4: J3420 04/03/2015 THER/PROPH/DIAG INJ SC/IM CPT-4: 42745 02/28/2015 VITAMIN B12 INJECTION CPT- 4: J3420 02/28/2015 THER/PROPH/DIAG INJ SC/IM CPT-4: 56833 01/30/2015 VITAMIN B12 INJECTION CPT- 4: J3420 01/30/2015 VITAMIN B12 INJECTION CPT- 4: J3420 01/02/2015 THER/PROPH/DIAG INJ SC/IM CPT-4: 01631 01/02/2015 THER/PROPH/DIAG INJ SC/IM CPT-4: 35088 11/28/2014 VITAMIN B12 INJECTION CPT- 4: J3420 11/28/2014 THER/PROPH/DIAG INJ SC/IM CPT-4: 56979 10/31/2014 VITAMIN B12 INJECTION CPT- 4: J3420 10/31/2014 THER/PROPH/DIAG INJ SC/IM CPT-4: 50194 10/03/2014 VITAMIN B12 INJECTION CPT- 4: J3420 10/03/2014 THER/PROPH/DIAG INJ SC/IM CPT-4: 88533 08/30/2014 VITAMIN B12 INJECTION CPT- 4: J3420 08/30/2014 THER/PROPH/DIAG INJ SC/IM CPT-4: 83382 08/02/2014 VITAMIN B12 INJECTION CPT- 4: J3420 08/02/2014 THER/PROPH/DIAG INJ SC/IM CPT-4: 82591 07/04/2014 VITAMIN B12 INJECTION CPT- 4: J3420 07/04/2014 THER/PROPH/DIAG INJ SC/IM CPT-4: 61179 05/30/2014 VITAMIN B12 INJECTION CPT- 4: J3420 05/30/2014 THER/PROPH/DIAG INJ SC/IM CPT-4: 28113 05/02/2014 VITAMIN B12 INJECTION CPT- 4: J3420 05/02/2014 THER/PROPH/DIAG INJ SC/IM CPT-4: 95690 04/05/2014 THER/PROPH/DIAG INJ SC/IM CPT-4: 58790 03/07/2014 VITAMIN B12 INJECTION CPT- 4: J3420 03/07/2014 THER/PROPH/DIAG INJ SC/IM CPT-4: 45377 02/01/2014 VITAMIN B12 INJECTION CPT- 4: J3420 02/01/2014 VITAMIN B12 INJECTION CPT- 4: J3420 12/30/2013 THER/PROPH/DIAG INJ SC/IM CPT-4: 36428 12/30/2013 THER/PROPH/DIAG INJ SC/IM CPT-4: 03681 11/30/2013 VITAMIN B12 INJECTION CPT- 4: J3420 11/30/2013 THER/PROPH/DIAG INJ SC/IM CPT-4: 33914 11/02/2013 VITAMIN B12 INJECTION CPT- 4: J3420 11/02/2013 THER/PROPH/DIAG INJ SC/IM CPT-4: 54332 08/31/2013 VITAMIN B12 INJECTION CPT- 4: J3420 08/31/2013 THER/PROPH/DIAG INJ SC/IM CPT-4: 52008 08/04/2013 VITAMIN B12 INJECTION CPT- 4: J3420 08/04/2013 VITAMIN B12 INJECTION CPT- 4: J3420 07/06/2013 THER/PROPH/DIAG INJ SC/IM CPT-4: 47318 07/06/2013 THER/PROPH/DIAG INJ SC/IM CPT-4: 09614 05/31/2013 VITAMIN B12 INJECTION CPT- 4: J3420 05/31/2013 ADMIN INFLUENZA VIRUS VAC CPT-4: G0008 05/04/2013 FLULAVAL VACC, 3 YRS & >, IM CPT-4: Q2036 05/04/2013 THER/PROPH/DIAG INJ SC/IM CPT-4: 06177 05/04/2013 VITAMIN B12 INJECTION CPT- 4: J3420 05/04/2013 THER/PROPH/DIAG INJ SC/IM CPT-4: 44190 03/30/2013 VITAMIN B12 INJECTION CPT- 4: J3420 03/30/2013 THER/PROPH/DIAG INJ SC/IM CPT-4: 04051 03/02/2013 VITAMIN B12 INJECTION CPT- 4: J3420 03/02/2013 [id number] EST. PATIENT, LEVEL IV CPT-4: 34100 03/02/2013 THER/PROPH/DIAG INJ SC/IM CPT-4: 99470 02/02/2013 VITAMIN B12 INJECTION CPT- 4: J3420 02/02/2013 THER/PROPH/DIAG INJ SC/IM CPT-4: 00397 12/29/2012 VITAMIN B12 INJECTION CPT- 4: J3420 12/29/2012 TRIAMCINOLONE ACET INJ NOS CPT-4: J3301 12/01/2012 VITAMIN B12 INJECTION CPT- 4: J3420 12/01/2012 VITAMIN B12 INJECTION CPT- 4: J3420 11/03/2012 THER/PROPH/DIAG INJ SC/IM CPT-4: 82781 11/03/2012 THER/PROPH/DIAG INJ SC/IM CPT-4: 92318 09/30/2012 VITAMIN B12 INJECTION CPT- 4: J3420 09/30/2012 PRESCRIP TRANSMIT VIA ERX SY CPT-4: G8553 09/30/2012 VITAMIN B12 INJECTION CPT- 4: J3420 09/08/2012 THER/PROPH/DIAG INJ SC/IM CPT-4: 22797 09/08/2012 THER/PROPH/DIAG INJ SC/IM CPT-4: 25690 08/25/2012 ROUTINE VENIPUNCTURE CPT- 4: 67902 08/25/2012 VITAMIN B12 INJECTION CPT- 4: J3420 08/25/2012 THER/PROPH/DIAG INJ SC/IM CPT-4: 63942 08/11/2012 VITAMIN B12 INJECTION CPT- 4: J3420 08/11/2012 VITAMIN B12 INJECTION CPT- 4: J3420 07/21/2012 THER/PROPH/DIAG INJ SC/IM CPT-4: 22050 07/21/2012 THER/PROPH/DIAG INJ SC/IM CPT-4: 53765 07/07/2012 VITAMIN B12 INJECTION CPT- 4: J3420 07/07/2012 ROUTINE VENIPUNCTURE CPT- 4: 15504 07/07/2012 VITAMIN B12 INJECTION CPT- 4: J3420 06/25/2012 THER/PROPH/DIAG INJ SC/IM CPT-4: 62353 06/25/2012 VITAMIN B12 INJECTION CPT- 4: J3420 06/09/2012 THER/PROPH/DIAG INJ SC/IM CPT-4: 95120 06/09/2012 VITAMIN B12 INJECTION CPT- 4: J3420 05/25/2012 THER/PROPH/DIAG INJ SC/IM CPT-4: 16348 05/25/2012 VITAMIN B12 INJECTION CPT- 4: J3420 05/12/2012 THER/PROPH/DIAG INJ SC/IM CPT-4: 00023 05/12/2012 VITAMIN B12 INJECTION CPT- 4: J3420 04/20/2012 THER/PROPH/DIAG INJ SC/IM CPT-4: 85130 04/20/2012 THER/PROPH/DIAG INJ SC/IM CPT-4: 44325 04/07/2012 VITAMIN B12 INJECTION CPT- 4: J3420 04/07/2012 VITAMIN B12 INJECTION CPT- 4: J3420 03/10/2012 THER/PROPH/DIAG INJ SC/IM CPT-4: 17878 03/10/2012 VITAMIN B12 INJECTION CPT- 4: J3420 02/18/2012 THER/PROPH/DIAG INJ SC/IM CPT-4: 69840 02/18/2012 THER/PROPH/DIAG INJ SC/IM CPT-4: 80970 02/04/2012 VITAMIN B12 INJECTION CPT- 4: J3420 02/04/2012 THER/PROPH/DIAG INJ SC/IM CPT-4: 30972 01/21/2012 VITAMIN B12 INJECTION CPT- 4: J3420 01/21/2012 VITAMIN B12 INJECTION CPT- 4: J3420 01/07/2012 VITAMIN B12 INJECTION CPT- 4: J3420 12/17/2011 URINALYSIS NONAUTO W/O SCOPE CPT-4: 58421 12/10/2011 ROUTINE VENIPUNCTURE CPT- 4: 71370 12/10/2011 URINALYSIS NONAUTO W/O SCOPE CPT-4: 71931 11/26/2011 Vital Signs Date Vital 11/05/2017 Blood Pressure 1: 136/82 Code: 8480-6 BMI: 25.7 Code: 68124-6 Heart Rate 1: 78 bpm Height: 5'7" SpO2: 97% Weight: 164 lbs 10/28/2017 Height: 5'7" 12/18/2015 Blood Pressure 1: 140/68 Code: 8480-6 BMI: 25.7 Code: 19953-0 Heart Rate 1: 83 bpm Height: 5'7" SpO2: 95% Weight: 164 lbs 10/11/2015 Blood Pressure 1: 128/80 Code: 8480-6 BMI: 26.0 Code: 28983-6 Heart Rate 1: 80 bpm Height: 5'7" SpO2: 97% Waist Measure (cm): 89 cm Weight: 166 lbs 01/16/2015 Blood Pressure 1: 122/84 Code: 8480-6 BMI: 25.7 Code: 16453-8 Heart Rate 1: 68 bpm Height: 5'7" SpO2: 95% Weight: 164 lbs 08/02/2014 Blood Pressure 1: 140/86 Code: 8480-6 BMI: 25.1 Code: 15859-9 Heart Rate 1: 64 bpm Height: 5'7" Weight: 160 lbs 03/02/2013 Blood Pressure 1: 108/74 Code: 8480-6 BMI: 28.3 Code: 37956-9 Heart Rate 1: 80 bpm Height: 5'7" Weight: 181 lbs 09/30/2012 Blood Pressure 1: 126/74 Code: 8480-6 Heart Rate 1: 64 bpm Weight: 07/07/2012 Blood Pressure 1: 130/84 Code: 8480-6 BMI: 26.6 Code: 34144-7 Heart Rate 1: 80 bpm Height: 5'7" [...] 1: 110/68 Code: 8480-6 BMI: 25.7 Code: 96170-4 Heart Rate 1: 68 bpm Height: 5'7" [...] single episode, moderate[ICD10: F32.1] Susan Vitale MD, [facility] CPT-4: 54297 11/05/2017 [id number] EST. PATIENT, LEVEL III Diagnosis: Encounter for follow-up examination after completed treatment for conditions other than malignant neoplasm[ICD10: Z09] Susan Vitale MD, [facility] CPT-4: 79693 12/18/2015 33654 EST. PATIENT, LEVEL IV Diagnosis: Cellulitis of right lower limb[ICD10: L03.115] Diagnosis: Vitamin B12 deficiency anemia due to intrinsic factor deficiency[ICD10: D51.0] Loren Vitale MD, [facility] CPT-4: 44109 12/04/2015 ([id number]) Miscellaneous no charge Diagnosis: Vitamin B deficiency, unspecified[ICD10: E53.9] Loren Vitale MD, [facility] CPT-4: 91046 07/31/2015 ([id number]) 88627 EST. PATIENT, LEVEL IV Diagnosis: Schizophrenia[ICD9: 295.90] Diagnosis: DEPRESSIVE DISORDER NEC[ICD9: 311] Diagnosis: Medication dose changed[ICD9: V58.69] Diagnosis: Leg pain[ICD9: 729.5] Loren Vitale MD, [facility] CPT-4: 55683 01/16/2015 ([id number]) 45025 EST. PATIENT, LEVEL III Diagnosis: Rash[ICD9: 782.1] [facility] CPT-4: 99953 08/02/2014 ([id number]) Miscellaneous no charge Diagnosis: SCHIZO NOS, CHRN[ICD9: 295.92] Loren Vitale MD, [facility] CPT-4: 64282 05/03/2013 ([id number]) 00286 EST. PATIENT, LEVEL III Diagnosis: Rash[ICD9: 782.1] Diagnosis: B-COMPLEX DEFIC NEC[ICD9: 266.2] Loren Vitale MD, [facility] CPT-4: 51329 09/30/2012 [id number]) 81400 EST. PATIENT, LEVEL IV Diagnosis: SCHIZO NOS, CHRN[ICD9: 295.92] Diagnosis: DEMEN NOS W/O BEHV DSTRB[ICD9: 294.20] Loren Vitale MD, [facility] CPT-4: 87511 07/07/2012 [id number]) 25235 EST. PATIENT, LEVEL IV Diagnosis: DEMEN NOS W/O BEHV DSTRB[ICD9: 294.20] Diagnosis: SCHIZO NOS, CHRN[ICD9: 295.92] Diagnosis: Vitamin B 12 deficiency[ICD9: 266.2] Loren Vitale MD, [facility] CPT- 4: 48779 01/07/2012 ([id number]) 35568 EST. PATIENT, LEVEL IV Diagnosis: DEMEN NOS W/O BEHV DSTRB[ICD9: 294.20] Diagnosis: ALTERED MENTAL STATUS[ICD9: 780.97] Diagnosis: Myalgia[ICD9: 729.1] Loren Vitale MD, [facility] CPT-4: 79949 12/17/2011 [id number]) 52802 EST. PATIENT, LEVEL IV Diagnosis: Orthostatic hypotension[ICD9: 458.0] Diagnosis: Hypokalemia[ICD9: 276.8] Diagnosis: DEMEN NOS W/O BEHV DSTRB[ICD9: 294.20] Diagnosis: SCHIZO NOS, CHRN[ICD9: 295.92] Diagnosis: ALTERED MENTAL STATUS[ICD9: 780.97] Camille Vitale MD, [facility] CPT-4: 17221 12/10/2011 OFFICE/OUTPATIENT VISIT NEW Diagnosis: Schizophrenia, chronic condition[ICD9: 295.92] Diagnosis: Encounter for long-term (current) use of other high-risk medications[ICD9: V58.69] [facility] CPT-4: 89163 11/26/2011 Plan of Care Planned Activity Notes Codes Status Date Patient Education: Patient Medication Summary Completed 07/01/2018 [...] medications. 11/05/2017 Appointment: [phone] [id number] ([facility] min) [facility] 11/05/2017 Patient Education: Patient Medication Summary Completed [...] pain. 12/18/2015 Appointment: [phone] (30 min) Complex 12/18/2015 Patient Education: [...] in pain. 12/04/2015 Appointment: Susan Rudd WPtel[facility] (10 min) Simple 12/04/2015 Patient Education: [...] paperwork for health care surrogate. 10/11/2015 Appointment: [facility] - Annual Wellness Visit 10/11/2015 Patient Education: [...] check labs. 01/16/2015 Appointment: Loren Vitale WPtel: [facility] [place] (15 min) Moderate 01/16/2015 Patient Education: Patient Medication Summary Completed 01/16/2015 Appointment: Injection 01/02/2015 Patient Education: Patient Medication Summary Completed 01/02/2015 Patient Education: Patient Medication Summary Completed 11/28/2014 Patient Education: Patient Medication Summary Completed 10/31/2014 Patient Education: Patient Medication Summary Completed 10/03/2014 Patient Education: Patient Medication Summary Completed 08/30/2014 Visit Plan: Mciz-ijyhrfkz-nzcannywyvyrv cream to affected area twice daily as directed-call if rash does not completely resolve B12 deficiency-B12 injection today in the office 08/02/2014 Appointment: Camille Devi WPtel: [phone] [place] Sick 08/02/2014 Patient Education: Patient Medication Summary Completed 08/02/2014 Patient Education: Patient Medication Summary Completed 07/04/2014 Patient Education: Patient Medication Summary Completed 05/30/2014 Appointment: Loren Vitale WPtel: [facility] [place] Injection 05/02/2014 Patient Education: Patient Medication Summary Completed 05/02/2014 Patient Education: Patient Medication Summary Completed 04/05/2014 Appointment: Camille Devi WPtel: [address] [place], [place] [phone] [place] Injection 03/07/2014 Patient Education: Patient Medication Summary Completed 03/07/2014 Appointment: [phone] [place] Injection 02/01/2014 Patient Education: Patient Medication Summary Completed 02/01/2014 Appointment: [phone] [place] Injection 12/30/2013 Patient Education: Patient Medication Summary Completed 12/30/2013 Appointment: [phone] [place] Injection 11/30/2013 Patient Education: Patient Medication Summary Completed 11/30/2013 [facility]ment: [phone] [place] Injection 11/02/2013 Patient Education: Patient Medication Summary Completed 11/02/2013 Appointment: [facility] Vitale [facility]Ptel[phone] [facility] [place] Injection 09/28/2013 Appointment: [facility] Vitale [facility]Ptel[phone] [facility] [place] Injection 08/31/2013 Patient Education: Patient Medication Summary Completed 08/31/2013 Patient Education: Patient Medication Summary Completed 08/04/2013 Appointment: [facility] Vitale [facility]el[phone] [facility] [place] Injection 08/03/2013 Appointment: [facility] Vitale [phone] [facility] [place] Injection 07/06/2013 Patient Education: Patient Medication Summary Completed 07/06/2013 App[facility]ment: [phone] [phone] [place] Injection 05/31/2013 Patient Education: Patient Medication Summary Completed 05/31/2013 Appointment: Camille Devi WPtel: [phone] [phone] [place] Injection 05/04/2013 Patient Education: Patient Medication [...] psychiatrist. 05/03/2013 Appointment: [facility] Vitale [facility]Ptel[phone] [facility] [place] Other 05/03/2013 Patient Education: Patient Medication Summary Completed 05/03/2013 [facility]ment: [phone] [place] Injection 03/30/2013 Patient Education: Patient [...] He is to see Dr. Treviño at [facility]. 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 03/02/2013 Appointment: Loren Vitale WPtel: [phone] [facility] [place] Follow up 03/02/2013 Patient Education: Patient Medication Summary Completed 03/02/2013 Appointment: Loren Vitale [facility]Ptel: [phone] [facility] [place] Injection 02/02/2013 Patient Education: Patient Medication Summary Completed 02/02/2013 Patient Education: Patient Medication Summary Completed 12/29/2012 App[facility]ment: [phone] [phone] [place] Injection 12/01/2012 Patient Education: Patient Medication Summary Completed 12/01/2012 Appointment: [facility] Vitale [facility]el[phone] [facility] [place] Injection 11/03/2012 Patient Education: Patient Medication Summary Completed 11/03/2012 Visit Plan: Rash-discussed natural and expected course of this diagnosis and to alert me if symptoms do not follow expected course, or if any worse. RX sent to patient's pharmacy and instructed on use. B12 def-injection today in the office 09/30/2012 Appointment: [phone] [facility] [place] Other 09/30/2012 Patient Education: Patient Medication Summary Completed 09/30/2012 Patient Education: Patient Medication Summary Completed 09/08/2012 [facility]ment[phone] [id number] [place] Injection 08/25/2012 Patient Education: Patient Medication Summary Completed 08/25/2012 Appointment: [phone] [facility] [place] Injection 08/11/2012 Patient Education: Patient Medication Summary Completed 08/11/2012 Appointment: [phone] [place] Injection 07/21/2012 Patient Education: Patient Medication [...] He is to see Dr. Treviño at [facility]. 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 07/07/2012 Appointment: [facility] Vit[facility]el[phone] [facility] [place] Follow up 07/07/2012 Patient Education: Patient Medication Summary Completed 07/07/2012 Patient Education: Patient Medication Summary Completed 06/25/2012 Patient Education: Patient Medication Summary Completed 06/09/2012 Patient Education: Patient Medication Summary Completed 05/25/2012 [facility]ment[phone] [place] [facility] 05/12/2012 Patient Education: Patient Medication Summary Completed 05/12/2012 Patient Education: Patient Medication Summary Completed 04/20/2012 [facility]ment: [phone] [phone] [place] Injection 04/07/2012 Patient Education: Patient Medication Summary Completed 04/07/2012 [facility]ment[phone] [id number] [place] Injection 03/24/2012 Appointment: [phone] [id number] [place] Injection 03/10/2012 Patient Education: Patient Medication Summary Completed 03/10/2012 App[facility]ment: [phone] [place]jection 02/18/2012 Patient Education: Patient Medication Summary Completed 02/18/2012 Appointment: [facility]el[phone] [facility] [place] Injection 02/04/2012 Patient Education: Patient Medication Summary Completed 02/04/2012 Appointment: [facility] Vit[facility]el: [phone] [facility] [place] 01/21/2012 Patient Education: Patient Medication [...] normal. 01/07/2012 Appointment: [phone] Other 01/07/2012 Patient Education: Patient Medication Summary [...] new symptoms. 12/17/2011 Appointment: Loren Vitale WPtel: [phone] [phone] Other 12/17/2011 Patient Education: Patient Medication Summary [...] about assistance. 12/10/2011 Appointment: Camille Devi WPtel: [phone] [facility]-in 12/10/2011 Patient Education: Patient Medication [...] understanding. 11/26/2011 Appointment: [facility] Vitale [facility]Ptel[phone] [facility] New Patient 11/26/2011 Patient Education: Patient Medication Summary Completed 11/26/2011 Instructions Comment . Pt's brother was explained to that [...] largest part of his new symptoms. . Dementia with Behaviors - I have [...] He is to see Dr. Treviño at [facility]. 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 . Npyi-wawtyour-hmypixfvtpsxt cream to affected area twice daily as [...] keep his B12 levels at normal. . Vascular Dementia - Pt with slowly progressive pattern. I have discussed with pt and family the prognosis of this disease state and the need for the family to anticipate further decline with behavior changes. Continue with current plan of treatment. Schizophrenia - pt to continue with his current medications. He is to see Dr. Treviño at [facility]. 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 . Hypotension-discussed natural and expected course of [...] of the lesion, increase in pain. . Schizophrenia - continue with chronic home [...] exposure. No change in current medications. . Schizophrenia - continue with chronic home [...]
--- OUTSIDE RECORDS SUMMARY | 2018-12-22 16:06 | XMS REPORT | CCD ---
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 Name Role Phone PP Unavailable CCM Unavailable Summary Purpose Interface Exchange Insurance Providers Payer name Policy type / Coverage type Covered alliance party ID Effective Begin Date Effective End Date WPS Medicare Part B Medicare Part B [id number] Unknown [place] [employer] Medicare Part B [id number] Unknown Family history Sister Diagnosis Age At Onset No Family Disease Entered N/A First cousin Diagnosis Age At Onset No Family Disease Entered N/A Mother Diagnosis Age At Onset Dementia Unknown Social History Social History Element Codes Description Effective Dates Marital status Unknown Single 11/26/[address]: 24717330 Current every day smoker 2 packs daily 11/26/[address]: 481784937 Never drinks alcohol 11/26/2011 Has the patient ever used illegal drugs? Unknown Has never used illegal drugs 11/26/2011 Allergies, Adverse Reactions, Alerts Substance Reaction Codes Entered Date Inactivated Date Status * NO KNOWN FOOD ALLERGIES Unknown 11/26/2011 No Inactive Date Active * NO KNOWN DRUG ALLERGIES Unknown 11/26/2011 No Inactive Date Active Past Medical History Illness Codes Condition Status Onset Date Resolved Date Encounter for immunization ICD-9: V04.81 ICD-10: Z23 [...] Active 06/02/2016 Unknown Encounter for immunization ICD-9: V03.9 ICD-10: [...] Problems Condition Codes Effective Dates Condition Status Encounter for immunization ICD-9: V04.81 ICD-10: Z23 [...] D51.8 06/02/2016 Active Encounter for immunization ICD-9: V03.9 ICD-10: [...] (vit B-12) 1,000 mcg/mL injection solution RxNorm: 680079 Milliliter(s) Inj 2018 2018 Inactive Wellbutrin SR 100 mg tablet, 12 hr sustained-release RxNorm: 240652 TAKE ONE TABLET BY MOUTH EVERY NIGHT AT BEDTIME 04/28/2018 10/24/2018 Active cyanocobalamin (vit B-12) 1,000 mcg/mL injection solution RxNorm: 998656 Milliliter(s) Inj 03/30/2018 03/30/2018 Inactive cyanocobalamin (vit B-12) 1,000 mcg/mL injection solution RxNorm: 020198 1 Milliliter(s) Inj 03/03/2018 03/03/2018 Inactive cyanocobalamin (vit B-12) 1,000 mcg/mL injection solution RxNorm: 529984 1 Milliliter(s) Inj 01/28/2018 01/28/2018 Inactive cyanocobalamin (vit B-12) 1,000 mcg/mL injection solution RxNorm: 333492 Milliliter(s) Inj 12/29/2017 12/29/2017 Inactive cyanocobalamin (vit B-12) 1,000 mcg/mL injection solution RxNorm: 197125 1 Milliliter(s) Inj 12/01/2017 12/01/2017 Inactive Wellbutrin SR 100 mg tablet, 12 hr sustained-release RxNorm: 578850 TAKE ONE TABLET BY MOUTH EVERY NIGHT AT BEDTIME 10/28/2017 04/25/2018 Inactive cyanocobalamin (vit B-12) 1,000 mcg/mL injection solution RxNorm: 308090 1 Milliliter(s) Inj 10/28/2017 10/28/2017 Inactive cyanocobalamin (vit B-12) 1,000 mcg/mL injection solution RxNorm: 813763 Milliliter(s) Inj 09/29/2017 09/29/2017 Inactive cyanocobalamin (vit B-12) 1,000 mcg/mL injection solution RxNorm: 123357 Milliliter(s) Inj 09/02/2017 09/02/2017 Inactive cyanocobalamin (vit B-12) 1,000 mcg/mL injection solution RxNorm: 274336 Milliliter(s) Inj 08/04/2017 08/04/2017 Inactive cyanocobalamin (vit B-12) 1,000 mcg/mL injection solution RxNorm: 933847 1 Milliliter(s) Inj 07/01/2017 07/01/2017 Inactive cyanocobalamin (vit B-12) 1,000 mcg/mL injection solution RxNorm: 544138 Milliliter(s) Inj 05/30/2017 05/30/2017 Inactive cyanocobalamin (vit B-12) 1,000 mcg/mL injection solution RxNorm: 715522 1 Milliliter(s) Inj 2017 2017 Inactive Wellbutrin SR 100 mg tablet, 12 hr sustained-release RxNorm: 318939 TAKE ONE TABLET BY MOUTH EVERY NIGHT AT BEDTIME 04/23/2017 10/19/2017 Inactive cyanocobalamin (vit B-12) 1,000 mcg/mL injection solution RxNorm: 337227 Milliliter(s) Inj 03/31/2017 03/31/2017 Inactive cyanocobalamin (vit B-12) 1,000 mcg/mL injection solution RxNorm: 687357 Milliliter(s) Inj 02/28/2017 02/28/2017 Inactive cyanocobalamin (vit B-12) 1,000 mcg/mL injection solution RxNorm: 322523 Milliliter(s) Inj 02/03/2017 02/03/2017 Inactive cyanocobalamin (vit B-12) 1,000 mcg/mL injection solution RxNorm: 040968 1 Milliliter(s) Inj 12/30/2016 12/30/2016 Inactive cyanocobalamin (vit B-12) 1,000 mcg/mL injection solution RxNorm: 379090 1 Milliliter(s) Inj 12/02/2016 12/02/2016 Inactive Wellbutrin SR 100 mg tablet, 12 hr sustained-release RxNorm: 242211 TAKE ONE TABLET BY MOUTH EVERY NIGHT AT BEDTIME 10/30/2016 04/22/2017 Inactive cyanocobalamin (vit B-12) 1,000 mcg/mL injection solution RxNorm: 174314 Milliliter(s) Inj 10/29/2016 10/29/2016 Inactive cyanocobalamin (vit B-12) 1,000 mcg/mL injection solution RxNorm: 510988 1 Milliliter(s) Inj 10/01/2016 10/01/2016 Inactive cyanocobalamin (vit B-12) 1,000 mcg/mL injection solution RxNorm: 438124 Milliliter(s) Inj 09/02/2016 09/02/2016 Inactive cyanocobalamin (vit B-12) 1,000 mcg/mL injection solution RxNorm: 531571 Milliliter(s) Inj 08/05/2016 08/05/2016 Inactive cyanocobalamin (vit B-12) 1,000 mcg/mL injection solution RxNorm: 954222 1 Milliliter(s) Inj 07/02/2016 07/02/2016 Inactive cyanocobalamin (vit B-12) 1,000 mcg/mL injection solution RxNorm: 883081 Milliliter(s) Inj 06/03/2016 06/03/2016 Inactive cyanocobalamin (vit B-12) 1,000 mcg/mL injection solution RxNorm: 377529 Milliliter(s) Inj 2016 2016 Inactive Wellbutrin SR 100 mg tablet,sustained-release RxNorm: 476810 1 Tablet(s) PO QHS 04/01/2016 10/27/2016 Inactive cyanocobalamin (vit B-12) 1,000 mcg/mL injection solution RxNorm: 671694 Milliliter(s) Inj 04/01/2016 04/01/2016 Inactive cyanocobalamin (vit B-12) 1,000 mcg/mL injection solution RxNorm: 318328 1 Milliliter(s) Inj 03/05/2016 03/05/2016 Inactive cyanocobalamin (vit B-12) 1,000 mcg/mL injection solution RxNorm: 917866 Milliliter(s) Inj 01/29/2016 01/29/2016 Inactive cyanocobalamin (vit B-12) 1,000 mcg/mL injection solution RxNorm: 962050 Milliliter(s) Inj 01/02/2016 01/02/2016 Inactive mupirocin 2 % topical ointment RxNorm: 058932 1 Application TOP BID 12/04/2015 No Stop Date Active doxycycline hyclate 100 mg capsule RxNorm: 7748200 1 Capsule(s) PO BID 12/04/2015 12/13/2015 Inactive cyanocobalamin (vit B-12) 1,000 mcg/mL injection solution RxNorm: 367570 Milliliter(s) Inj 10/30/2015 10/30/2015 Inactive cyanocobalamin (B12)-cobamamide 5,000 mcg-100 mcg sublingual tablet RxNorm: 211321 Tablet(s) SL 10/02/2015 10/02/2015 Inactive Wellbutrin SR 100 mg tablet,sustained-release RxNorm: 623006 1 Tablet(s) PO QHS 09/08/2015 03/31/2016 Inactive cyanocobalamin (vit B-12) 1,000 mcg/mL injection solution RxNorm: 247722 Milliliter(s) Inj 08/29/2015 08/29/2015 Inactive cyanocobalamin (vit B-12) 1,000 mcg/mL injection solution RxNorm: 495628 Milliliter(s) Inj 07/31/2015 07/31/2015 Inactive cyanocobalamin (vit B-12) 1,000 mcg/mL injection solution RxNorm: 996509 Milliliter(s) Inj 06/05/2015 06/05/2015 Inactive cyanocobalamin (vit B-12) 1,000 mcg/mL injection solution RxNorm: 834467 Milliliter(s) Inj 05/01/2015 05/01/2015 Inactive cyanocobalamin (vit B-12) 1,000 mcg/mL injection solution RxNorm: 972970 Milliliter(s) Inj 04/03/2015 04/03/2015 Inactive cyanocobalamin (vit B-12) 1,000 mcg/mL injection solution RxNorm: 308086 Milliliter(s) Inj 02/28/2015 02/28/2015 Inactive cyanocobalamin (vit B-12) 1,000 mcg/mL injection solution RxNorm: 717913 Milliliter(s) Inj 01/30/2015 01/30/2015 Inactive Wellbutrin SR 100 mg tablet,sustained-release RxNorm: 509613 1 Tablet(s) PO QHS 01/16/2015 08/13/2015 Inactive cyanocobalamin (vit B-12) 1,000 mcg/mL injection solution RxNorm: 257840 1 Milliliter(s) Inj 01/02/2015 01/02/2015 Inactive cyanocobalamin (vit B-12) 1,000 mcg/mL injection solution RxNorm: 261676 1 Milliliter(s) Inj 11/28/2014 11/28/2014 Inactive cyanocobalamin (vit B-12) 1,000 mcg/mL injection solution RxNorm: 974102 Milliliter(s) Inj 10/31/2014 10/31/2014 Inactive [SAVINGS FOR NON-COVERED DRUGS -- BIN:174730, PCN: ASPROD1, Group: XXXXX, ID# [id number], Questions: . THIS IS NOT INSURANCE.] cyanocobalamin (vit B-12) 1,000 mcg/mL injection solution RxNorm: 922412 1 Milliliter(s) Inj daily 10/03/2014 10/03/2014 Inactive [SAVINGS FOR NON-COVERED DRUGS -- BIN:255285, PCN: ASPROD1, Group: XXXXX, ID# [id number], Questions: . THIS IS NOT INSURANCE.] cyanocobalamin (vit B-12) 1,000 mcg/mL injection solution RxNorm: 232599 Milliliter(s) Inj 08/30/2014 08/30/2014 Inactive [SAVINGS FOR NON-COVERED DRUGS -- BIN:937205, PCN: ASPROD1, Group: XXXXX, ID# [id number], Questions: . THIS IS NOT INSURANCE.] nystatin-triamcinolone 100,000 unit/g-0.1 % topical cream RxNorm: 6600269 1 Application TOP BID 08/02/2014 08/08/2014 Inactive [SAVINGS FOR UNINSURED PATIENTS -- BIN:512988, PCN: ASPROD1, Group: [id number], ID# [id number], Process claim through [employer], for questions: . THIS IS NOT INSURANCE.] cyanocobalamin (vit B-12) 1,000 mcg/mL injection solution RxNorm: 093340 Milliliter(s) Inj 08/02/2014 08/02/2014 Inactive [SAVINGS FOR UNINSURED PATIENTS -- BIN:288292, PCN: ASPROD1, Group: [id number], ID# [id number], Process claim through [employer], for questions: . THIS IS NOT INSURANCE.] cyanocobalamin (vit B-12) 1,000 mcg/mL injection kit RxNorm: 190492 Milliliter(s) Inj 07/04/2014 07/04/2014 Inactive [SAVINGS FOR UNINSURED PATIENTS -- BIN:408843, PCN: ASPROD1, Group: [id number], ID# [id number], Process claim through [employer], for questions: . THIS IS NOT INSURANCE.] cyanocobalamin (vit B-12) 1,000 mcg/mL injection solution RxNorm: 541997 Milliliter(s) Inj 05/30/2014 05/30/2014 Inactive cyanocobalamin (vit B-12) 1,000 mcg/mL injection solution RxNorm: 415832 Milliliter(s) Inj 05/02/2014 05/02/2014 Inactive cyanocobalamin (vit B-12) 1,000 mcg/mL injection solution RxNorm: 271096 Milliliter(s) Inj 04/05/2014 04/05/2014 Inactive cyanocobalamin (vit B-12) 1,000 mcg/mL injection solution RxNorm: 678570 Milliliter(s) Inj 03/07/2014 03/07/2014 Inactive cyanocobalamin (vit B-12) 1,000 mcg/mL injection solution RxNorm: 865956 1 Milliliter(s) Inj 02/01/2014 02/01/2014 Inactive cyanocobalamin (vit B-12) 1,000 mcg/mL injection solution RxNorm: 737648 1 Milliliter(s) Inj 12/30/2013 12/30/2013 Inactive [SAVINGS FOR UNINSURED PATIENTS -- BIN:841303, PCN: ASPROD1, Group: [id number], ID# [id number], Process claim through [employer], for questions: . THIS IS NOT INSURANCE.] cyanocobalamin (vit B-12) 1,000 mcg/mL injection solution RxNorm: 281275 Milliliter(s) Inj 11/30/2013 11/30/2013 Inactive cyanocobalamin (vit B-12) 1,000 mcg/mL injection solution RxNorm: 719317 1 Milliliter(s) Inj 11/02/2013 11/02/2013 Inactive Vitamin B-12 1,000 mcg/mL injection solution RxNorm: 769208 Milliliter(s) Inj 08/31/2013 08/31/2013 Inactive Vitamin B-12 1,000 mcg/mL injection solution RxNorm: 902381 1 Milliliter(s) Inj 08/04/2013 08/04/2013 Inactive Vitamin B-12 1,000 mcg/mL injection solution RxNorm: 347158 Milliliter(s) Inj 07/06/2013 07/06/2013 Inactive cyanocobalamin (vit B-12) 1,000 mcg/mL injection solution RxNorm: 223833 Milliliter(s) Inj 05/31/2013 05/31/2013 Inactive cyanocobalamin (vit B-12) 1,000 mcg/mL injection kit RxNorm: 296992 Milliliter(s) Inj 05/04/2013 05/04/2013 Inactive cyanocobalamin (vitamin B-12) 1,000 mcg/mL Injection RxNorm: 600624 Milliliter(s) Inj 03/30/2013 03/30/2013 Inactive cyanocobalamin (vitamin B-12) 1,000 mcg/mL Injection RxNorm: 584170 Milliliter(s) Inj 02/02/2013 02/02/2013 Inactive cyanocobalamin (vitamin B-12) 1,000 mcg/mL Injection RxNorm: 450511 Milliliter(s) Inj 12/29/2012 12/29/2012 Inactive cyanocobalamin (vitamin B-12) 1,000 mcg/mL Injection RxNorm: 044156 Milliliter(s) Inj 12/01/2012 12/01/2012 Inactive Vitamin B-12 1,000 mcg tablet RxNorm: 529819 Tablet(s) PO 11/03/2012 11/03/2012 Inactive Vitamin B-12 1,000 mcg/mL Injection RxNorm: 357053 1 Milliliter(s) Inj 09/30/2012 09/30/2012 Inactive triamcinolone acetonide 0.1 % Topical Cream RxNorm: 0908891 1 Application TOP BID 09/30/2012 10/13/2012 Inactive Vitamin B-12 1,000 mcg/mL Injection RxNorm: 321846 1 Milliliter(s) Inj 09/08/2012 09/08/2012 Inactive cyanocobalamin (vitamin B-12) 1,000 mcg/mL Injection RxNorm: 030483 1 Milliliter(s) Inj 08/25/2012 08/25/2012 Inactive cyanocobalamin (vitamin B-12) 1,000 mcg/mL Injection RxNorm: 740829 1 Milliliter(s) Inj 08/11/2012 08/11/2012 Inactive cyanocobalamin (vitamin B-12) 1,000 mcg/mL Injection RxNorm: 774570 1 Milliliter(s) Inj 07/21/2012 07/21/2012 Inactive Vitamin B-12 1,000 mcg/mL Injection RxNorm: 941256 Milliliter(s) Inj 07/07/2012 07/07/2012 Inactive cyanocobalamin (vitamin B-12) 1,000 mcg/mL Injection RxNorm: 487194 1 Milliliter(s) Inj 06/25/2012 06/25/2012 Inactive Vitamin B-12 1,000 mcg/mL Injection RxNorm: 982518 1 Milliliter(s) Inj 06/09/2012 06/09/2012 Inactive Vitamin B-12 1,000 mcg/mL Injection RxNorm: 356507 Milliliter(s) Inj 05/25/2012 05/25/2012 Inactive Vitamin B-12 1,000 mcg/mL Injection RxNorm: 073154 Milliliter(s) Inj 05/12/2012 05/12/2012 Inactive Vitamin B-12 1,000 mcg/mL Injection RxNorm: 692509 Milliliter(s) Inj 04/20/2012 04/20/2012 Inactive Vitamin B-12 1,000 mcg/mL Injection RxNorm: 369847 Milliliter(s) Inj 04/07/2012 04/07/2012 Inactive Vitamin B-12 1,000 mcg/mL Injection RxNorm: 403066 Milliliter(s) Inj 03/10/2012 03/10/2012 Inactive Vitamin B-12 1,000 mcg/mL Injection RxNorm: 567361 Milliliter(s) Inj 02/18/2012 02/18/2012 Inactive Vitamin B-12 1,000 mcg/mL Injection RxNorm: 002473 Milliliter(s) Inj 02/04/2012 02/04/2012 Inactive Vitamin B-12 1,000 mcg/mL Injection RxNorm: 620071 Milliliter(s) Inj 01/21/2012 01/21/2012 Inactive Vitamin B-12 1,000 mcg/mL Injection RxNorm: 321602 Milliliter(s) Inj 01/07/2012 01/07/2012 Inactive Vitamin B-12 1,000 mcg/mL Injection RxNorm: 308232 Milliliter(s) Inj 12/17/2011 12/17/2011 Inactive KCL 10 meq RxNorm: 1 PO daily 12/12/2011 12/16/2011 Inactive Vitamin B-12 1,000 mcg/mL Injection RxNorm: 188084 1 Milliliter(s) Inj monthly No Start Date Active Wellbutrin SR 200 mg Tab RxNorm: 154192 1 Tablet(s) PO daily No Start Date Active Anafranil 25 mg Cap RxNorm: 906377 1 Capsule(s) PO daily No Start Date Active Stelazine 5 mg Tab RxNorm: 809668 1 Tablet(s) PO BID No Start Date Active clonazepam 1 mg Tab RxNorm: 011419 1 Tablet(s) PO BID No Start Date Active risperidone 3 mg Tab RxNorm: 009009 Tablet(s) PO No Start Date Active 2 on even days 3 on odd days Cogentin 1 mg Tab RxNorm: 297827 1 Tablet(s) PO TID No Start Date Active Medication Administered Medication Codes Instructions Start Date Status cyanocobalamin (vit B-12) 1,000 mcg/mL injection solution RxNorm: 823125 Milliliter 2018 Active cyanocobalamin (vit B-12) 1,000 mcg/mL injection solution RxNorm: 809211 Milliliter 03/30/2018 No longer Active cyanocobalamin (vit B-12) 1,000 mcg/mL injection solution RxNorm: 126705 1Milliliter 03/03/2018 No longer Active cyanocobalamin (vit B-12) 1,000 mcg/mL injection solution RxNorm: 144250 1Milliliter 01/28/2018 No longer Active cyanocobalamin (vit B-12) 1,000 mcg/mL injection solution RxNorm: 293511 Milliliter 12/29/2017 No longer Active cyanocobalamin (vit B-12) 1,000 mcg/mL injection solution RxNorm: 235098 1Milliliter 12/01/2017 No longer Active cyanocobalamin (vit B-12) 1,000 mcg/mL injection solution RxNorm: 946300 1Milliliter 10/28/2017 No longer Active cyanocobalamin (vit B-12) 1,000 mcg/mL injection solution RxNorm: 842966 Milliliter 09/29/2017 No longer Active cyanocobalamin (vit B-12) 1,000 mcg/mL injection solution RxNorm: 471084 Milliliter 09/02/2017 No longer Active cyanocobalamin (vit B-12) 1,000 mcg/mL injection solution RxNorm: 910030 Milliliter 08/04/2017 No longer Active cyanocobalamin (vit B-12) 1,000 mcg/mL injection solution RxNorm: 188981 1Milliliter 07/01/2017 No longer Active cyanocobalamin (vit B-12) 1,000 mcg/mL injection solution RxNorm: 298802 Milliliter 05/30/2017 No longer Active cyanocobalamin (vit B-12) 1,000 mcg/mL injection solution RxNorm: 013121 1Milliliter 2017 No longer Active cyanocobalamin (vit B-12) 1,000 mcg/mL injection solution RxNorm: 698714 Milliliter 03/31/2017 No longer Active cyanocobalamin (vit B-12) 1,000 mcg/mL injection solution RxNorm: 196580 Milliliter 02/28/2017 No longer Active cyanocobalamin (vit B-12) 1,000 mcg/mL injection solution RxNorm: 099215 Milliliter 02/03/2017 No longer Active cyanocobalamin (vit B-12) 1,000 mcg/mL injection solution RxNorm: 146271 1Milliliter 12/30/2016 No longer Active cyanocobalamin (vit B-12) 1,000 mcg/mL injection solution RxNorm: 727464 1Milliliter 12/02/2016 No longer Active cyanocobalamin (vit B-12) 1,000 mcg/mL injection solution RxNorm: 255249 Milliliter 10/29/2016 No longer Active cyanocobalamin (vit B-12) 1,000 mcg/mL injection solution RxNorm: 403848 1Milliliter 10/01/2016 No longer Active cyanocobalamin (vit B-12) 1,000 mcg/mL injection solution RxNorm: 400190 Milliliter 09/02/2016 No longer Active cyanocobalamin (vit B-12) 1,000 mcg/mL injection solution RxNorm: 883056 Milliliter 08/05/2016 No longer Active cyanocobalamin (vit B-12) 1,000 mcg/mL injection solution RxNorm: 020382 1Milliliter 07/02/2016 No longer Active cyanocobalamin (vit B-12) 1,000 mcg/mL injection solution RxNorm: 400210 Milliliter 06/03/2016 No longer Active cyanocobalamin (vit B-12) 1,000 mcg/mL injection solution RxNorm: 743883 Milliliter 2016 No longer Active cyanocobalamin (vit B-12) 1,000 mcg/mL injection solution RxNorm: 512362 Milliliter 04/01/2016 No longer Active cyanocobalamin (vit B-12) 1,000 mcg/mL injection solution RxNorm: 170050 1Milliliter 03/05/2016 No longer Active cyanocobalamin (vit B-12) 1,000 mcg/mL injection solution RxNorm: 290815 Milliliter 01/29/2016 No longer Active cyanocobalamin (vit B-12) 1,000 mcg/mL injection solution RxNorm: 853574 Milliliter 01/02/2016 No longer Active cyanocobalamin (vit B-12) 1,000 mcg/mL injection solution RxNorm: 993049 Milliliter 10/30/2015 No longer Active cyanocobalamin (B12)-cobamamide 5,000 mcg-100 mcg sublingual tablet RxNorm: 327027 Tablet 10/02/2015 No longer Active cyanocobalamin (vit B-12) 1,000 mcg/mL injection solution RxNorm: 415089 Milliliter 08/29/2015 No longer Active cyanocobalamin (vit B-12) 1,000 mcg/mL injection solution RxNorm: 430152 Milliliter 07/31/2015 No longer Active cyanocobalamin (vit B-12) 1,000 mcg/mL injection solution RxNorm: 215118 Milliliter 06/05/2015 No longer Active cyanocobalamin (vit B-12) 1,000 mcg/mL injection solution RxNorm: 055448 Milliliter 05/01/2015 No longer Active cyanocobalamin (vit B-12) 1,000 mcg/mL injection solution RxNorm: 509066 Milliliter 04/03/2015 No longer Active cyanocobalamin (vit B-12) 1,000 mcg/mL injection solution RxNorm: 658705 Milliliter 02/28/2015 No longer Active cyanocobalamin (vit B-12) 1,000 mcg/mL injection solution RxNorm: 651720 Milliliter 01/30/2015 No longer Active cyanocobalamin (vit B-12) 1,000 mcg/mL injection solution RxNorm: 076182 1Milliliter 01/02/2015 No longer Active cyanocobalamin (vit B-12) 1,000 mcg/mL injection solution RxNorm: 770390 1Milliliter 11/28/2014 No longer Active cyanocobalamin (vit B-12) 1,000 mcg/mL injection solution RxNorm: 826397 Milliliter 10/31/2014 No longer Active cyanocobalamin (vit B-12) 1,000 mcg/mL injection solution RxNorm: 997300 1Milliliterdaily 10/03/2014 No longer Active cyanocobalamin (vit B-12) 1,000 mcg/mL injection solution RxNorm: 885157 Milliliter 08/30/2014 No longer Active cyanocobalamin (vit B-12) 1,000 mcg/mL injection solution RxNorm: 446273 Milliliter 08/02/2014 No longer Active cyanocobalamin (vit B-12) 1,000 mcg/mL injection kit RxNorm: 101342 Milliliter 07/04/2014 No longer Active cyanocobalamin (vit B-12) 1,000 mcg/mL injection solution RxNorm: 178013 Milliliter 05/30/2014 No longer Active cyanocobalamin (vit B-12) 1,000 mcg/mL injection solution RxNorm: 499937 Milliliter 05/02/2014 No longer Active cyanocobalamin (vit B-12) 1,000 mcg/mL injection solution RxNorm: 743039 Milliliter 04/05/2014 No longer Active cyanocobalamin (vit B-12) 1,000 mcg/mL injection solution RxNorm: 438133 Milliliter 03/07/2014 No longer Active cyanocobalamin (vit B-12) 1,000 mcg/mL injection solution RxNorm: 589063 1Milliliter 02/01/2014 No longer Active cyanocobalamin (vit B-12) 1,000 mcg/mL injection solution RxNorm: 096674 1Milliliter 12/30/2013 No longer Active cyanocobalamin (vit B-12) 1,000 mcg/mL injection solution RxNorm: 885983 Milliliter 11/30/2013 No longer Active cyanocobalamin (vit B-12) 1,000 mcg/mL injection solution RxNorm: 753946 1Milliliter 11/02/2013 No longer Active Vitamin B-12 1,000 mcg/mL injection solution RxNorm: 556549 Milliliter 08/31/2013 No longer Active Vitamin B-12 1,000 mcg/mL injection solution RxNorm: 891324 1Milliliter 08/04/2013 No longer Active Vitamin B-12 1,000 mcg/mL injection solution RxNorm: 970637 Milliliter 07/06/2013 No longer Active cyanocobalamin (vit B-12) 1,000 mcg/mL injection solution RxNorm: 726720 Milliliter 05/31/2013 No longer Active cyanocobalamin (vit B-12) 1,000 mcg/mL injection kit RxNorm: 610022 Milliliter 05/04/2013 No longer Active cyanocobalamin (vitamin B-12) 1,000 mcg/mL Injection RxNorm: 280052 Milliliter 03/30/2013 No longer Active cyanocobalamin (vitamin B-12) 1,000 mcg/mL Injection RxNorm: 920820 Milliliter 02/02/2013 No longer Active cyanocobalamin (vitamin B-12) 1,000 mcg/mL Injection RxNorm: 665910 Milliliter 12/29/2012 No longer Active cyanocobalamin (vitamin B-12) 1,000 mcg/mL Injection RxNorm: 560017 Milliliter 12/01/2012 No longer Active Vitamin B-12 1,000 mcg tablet RxNorm: 468900 Tablet 11/03/2012 No longer Active Vitamin B-12 1,000 mcg/mL Injection RxNorm: 013965 1Milliliter 09/30/2012 No longer Active Vitamin B-12 1,000 mcg/mL Injection RxNorm: 324724 1Milliliter 09/08/2012 No longer Active cyanocobalamin (vitamin B-12) 1,000 mcg/mL Injection RxNorm: 313794 1Milliliter 08/25/2012 No longer Active cyanocobalamin (vitamin B-12) 1,000 mcg/mL Injection RxNorm: 581660 1Milliliter 08/11/2012 No longer Active cyanocobalamin (vitamin B-12) 1,000 mcg/mL Injection RxNorm: 340385 1Milliliter 07/21/2012 No longer Active Vitamin B-12 1,000 mcg/mL Injection RxNorm: 167068 Milliliter 07/07/2012 No longer Active cyanocobalamin (vitamin B-12) 1,000 mcg/mL Injection RxNorm: 314102 1Milliliter 06/25/2012 No longer Active Vitamin B-12 1,000 mcg/mL Injection RxNorm: 027335 1Milliliter 06/09/2012 No longer Active Vitamin B-12 1,000 mcg/mL Injection RxNorm: 171436 Milliliter 05/25/2012 No longer Active Vitamin B-12 1,000 mcg/mL Injection RxNorm: 764797 Milliliter 05/12/2012 No longer Active Vitamin B-12 1,000 mcg/mL Injection RxNorm: 629493 Milliliter 04/20/2012 No longer Active Vitamin B-12 1,000 mcg/mL Injection RxNorm: 909567 Milliliter 04/07/2012 No longer Active Vitamin B-12 1,000 mcg/mL Injection RxNorm: 313515 Milliliter 03/10/2012 No longer Active Vitamin B-12 1,000 mcg/mL Injection RxNorm: 482511 Milliliter 02/18/2012 No longer Active Vitamin B-12 1,000 mcg/mL Injection RxNorm: 923326 Milliliter 02/04/2012 No longer Active Vitamin B-12 1,000 mcg/mL Injection RxNorm: 359071 Milliliter 01/21/2012 No longer Active Vitamin B-12 1,000 mcg/mL Injection RxNorm: 301491 Milliliter 01/07/2012 No longer Active Vitamin B-12 1,000 mcg/mL Injection RxNorm: 832392 Milliliter 12/17/2011 No longer Active Immunizations Vaccine Codes Date Status Influenza CVX: 141 2017 completed Influenza CVX: 141 05/01/2016 completed Pneumococcal CVX: 33 11/21/2015 completed PPD Unknown 07/31/2015 completed Influenza CVX: 141 05/04/2013 completed PPD Unknown 05/03/2013 completed Pneumococcal CVX: 33 11/04/2012 completed Tetanus/Diptheria CVX: 28 11/04/2012 completed Assessments Condition Codes Effective Dates Encounter for immunization ICD-10: Z23 ICD-9: V04.81 [...] anemia, unspecified ICD-10: D51.9 ICD-9: 281.1 09/02/2017 Other vitamin B12 deficiency anemias ICD-10: D51.8 ICD-9: 281.1 08/04/2017 Encounter for immunization ICD-10: Z23 ICD-9: V03.9 [...] Code Item Item Code Result Date B12 [id number] B12 637.00 pg/ml 07/31/2015 FOLIC ACID 7582985 FOLIC ACID >24.0 NG/ML 08/25/2012 VIT B 12 5279158 VIT B 12 1591 PG/ML 08/25/2012 HOMOCYS 2757811 HOMOCYS 6.8 UMOL/L 08/25/2012 TSH 3313919 TSH 1.386 uIU/ML 07/07/2012 CBC 1880357 WBC 6.4 10e9/L 07/07/2012 CBC 2128371 RBC 4.92 10e12/L 07/07/2012 CBC 7728141 HGB 15.0 g/dL 07/07/2012 CBC 6763654 HCT DET 43.3 % 07/07/2012 CBC [id number] MCV 88.0 fL 07/07/2012 CBC [id number] MCH 30.5 pg 07/07/2012 CBC [id number] MCHC 34.6 g/dL 07/07/2012 CBC 9157007 PLT 180 10e9/L 07/07/2012 CBC 5362441 MPV 10.0 fL 07/07/2012 CBC 0034253 KENRICK % 59.0 % 07/07/2012 CBC 4059736 LY % 24.1 % 07/07/2012 CBC 5508756 MON % 12.5 % 07/07/2012 CBC 8375562 EOS % 4.1 % 07/07/2012 CBC 0932585 BASO % 0.3 % 07/07/2012 CBC 1197454 RDW 13.4 % 07/07/2012 CBC 6126969 ABS KENRICK 3.78 10e9/L 07/07/2012 CBC 8050327 ABS LYMPH 1.54 10e9/L 07/07/2012 CBC 2322920 ABS MONO 0.80 10e9/L 07/07/2012 CBC 4393170 ABS EOS 0.26 10e9/L 07/07/2012 CBC 6762954 ABS BASO 0.02 10e9/L 07/07/2012 CBC 3152498 RDW-SD 42.9 fL 07/07/2012 CHEM 14 5942445 AST 29 U/L 07/07/2012 CHEM 14 9322220 ALT 29 U/L 07/07/2012 CHEM 14 8411114 BUN 9 MG/DL 07/07/2012 CHEM 14 3960448 ALBUMIN 4.1 GM/DL 07/07/2012 CHEM 14 7226574 CHLORIDE 103 MMOL/L 07/07/2012 CHEM 14 3000656 BILI TOT 0.3 MG/DL 07/07/2012 CHEM 14 8812532 ALK PHOS 88 U/L 07/07/2012 CHEM 14 3606525 SODIUM 141 MMOL/L 07/07/2012 CHEM 14 0334596 CREATININE 1.38 MG/DL 07/07/2012 CHEM 14 8048439 CALCIUM 9.3 MG/DL 07/07/2012 CHEM 14 0104575 POTASSIUM 3.7 MMOL/L 07/07/2012 CHEM 14 8447547 PROT TOT 6.4 GM/DL 07/07/2012 CHEM 14 7858143 GLUCOSE 76 MG/DL 07/07/2012 CHEM 14 1469216 BICARB 28 MMOL/L 07/07/2012 CHEM 14 7541985 ANION GAP 10 MMOL/L 07/07/2012 GFR CALC 3739616 GFR AA >60 ML/MIN 07/07/2012 GFR CALC 1737244 GFR NON-AA 52.0L ML/MIN 07/07/2012 B12 FOLAT 6956537 VIT B 12 211 PG/ML 12/10/2011 B12 FOLAT 3099970 FOLIC ACID 3.9 NG/ML 12/10/2011 GFR CALC 0707197 GFR AA >60 ML/MIN 12/10/2011 GFR CALC 3564781 GFR NON-AA >60 ML/MIN 12/10/2011 CPK 5492520 CPK 135 U/L 12/10/2011 CHEM 14 6293002 AST 62 U/L 12/10/2011 CHEM 14 1792415 ALT 114 U/L 12/10/2011 CHEM 14 7135050 BUN 10 MG/DL 12/10/2011 CHEM 14 0271357 ALBUMIN 3.7 GM/DL 12/10/2011 CHEM 14 2868349 CHLORIDE 103 MMOL/L 12/10/2011 CHEM 14 8497549 BILI TOT 0.5 MG/DL 12/10/2011 CHEM 14 1170336 ALK PHOS 129 U/L 12/10/2011 CHEM 14 0053050 SODIUM 140 MMOL/L 12/10/2011 CHEM 14 5968718 CREATININE 1.17 MG/DL 12/10/2011 CHEM 14 6066537 CALCIUM 8.8 MG/DL 12/10/2011 CHEM 14 8508490 POTASSIUM 3.4 MMOL/L 12/10/2011 CHEM 14 4321733 PROT TOT 5.8 GM/DL 12/10/2011 CHEM 14 6034780 GLUCOSE 84 MG/DL 12/10/2011 CHEM 14 4622568 BICARB 26 MMOL/L 12/10/2011 CHEM 14 9123584 ANION GAP 11 MMOL/L 12/10/2011 URINALYSIS NONAUTO W/O SCOPE 61974 Specific [place] 1.005 DateTime(Free Text in Aprima) URINALYSIS NONAUTO W/O SCOPE 37649 PH 6 DateTime(Free Text in Aprima) URINALYSIS NONAUTO W/O SCOPE 70301 GLUCOSE neg DateTime(Free Text in Aprima) URINALYSIS NONAUTO W/O SCOPE 32646 Protein neg DateTime(Free Text in Aprima) URINALYSIS NONAUTO W/O SCOPE 79453 Blood neg DateTime(Free Text in Aprima) URINALYSIS NONAUTO W/O SCOPE 79849 Bilirubin neg DateTime(Free Text in Aprima) URINALYSIS NONAUTO W/O SCOPE 25092 Ketones neg DateTime(Free Text in Aprima) URINALYSIS NONAUTO W/O SCOPE 40757 Urobilinogen neg DateTime(Free Text in Aprima) URINALYSIS NONAUTO W/O SCOPE 35631 Nitrite neg DateTime(Free Text in Aprima) URINALYSIS NONAUTO W/O SCOPE 68947 Leukocytes neg DateTime(Free Text in Aprima) URINALYSIS NONAUTO W/O SCOPE 45717 Specific [place] 1.010 DateTime(Free Text in Aprima) URINALYSIS NONAUTO W/O SCOPE 62768 PH 6.5 DateTime(Free Text in Aprima) URINALYSIS NONAUTO W/O SCOPE 17634 GLUCOSE neg DateTime(Free Text in Aprima) URINALYSIS NONAUTO W/O SCOPE 14556 Protein neg DateTime(Free Text in Aprima) URINALYSIS NONAUTO W/O SCOPE 13410 Blood neg DateTime(Free Text in Aprima) URINALYSIS NONAUTO W/O SCOPE 07149 Bilirubin neg DateTime(Free Text in Aprima) URINALYSIS NONAUTO W/O SCOPE 74707 Ketones neg DateTime(Free Text in Aprima) URINALYSIS NONAUTO W/O SCOPE 43267 Urobilinogen neg DateTime(Free Text in Aprima) URINALYSIS NONAUTO W/O SCOPE 72927 Nitrite neg DateTime(Free Text in Aprima) URINALYSIS NONAUTO W/O SCOPE 44379 Leukocytes neg DateTime(Free Text in Apr) Review [...] recall three words at five minutes 11/05/2017 [facility] exam points Full Exam - General [...] recall three words at five minutes 01/16/2015 [facility] exam points Full Exam - General [...] three words at five minutes 03/02/2013 [facility] exam points Full Exam - Dermatology [...] recall three words at five minutes 07/07/2012 [facility] exam points Full Exam - General 1994 Ears/Nose/Throat otoscopic [...] three words at five minutes 01/07/2012 [facility] exam points Full Exam - General [...] accomodation 12/17/2011 None Full Exam - General 1995 Respiratory auscultation Overall: breath sounds clear bilaterally 12/17/2011 None Full Exam - General 1995 Respiratory respiratory effort/rhythm Overall: no retractions 12/17/2011 None Full Exam - General 1995 Respiratory respiratory effort/rhythm Overall: normal rate 12/17/2011 None Full Exam - General 1995 Cardiovascular extremities Overall: no clubbing 12/17/2011 None Full Exam - General 1995 Cardiovascular extremities Edema present: pitting 12/17/2011 None [...] recall three words at five minutes 12/17/2011 [facility] exam points 30 Full Exam - General 1994 Constitutional general [...] recall three words at five minutes 12/10/2011 [facility] exam points [...] tenderness 11/26/2011 None Full Exam - General 1995 Abdomen [...] recall three words at five minutes 11/26/2011 [facility] exam points Procedures Procedure Codes Date ADMIN INFLUENZA VIRUS VAC CPT-4: G0008 2018 FLU VACC PRSV FREE INC ANTIG CPT-4: 45823 2018 THER/PROPH/DIAG INJ SC/IM CPT-4: 40905 2018 VITAMIN B12 INJECTION CPT- 4: J3420 2018 THER/PROPH/DIAG INJ SC/IM CPT-4: 82245 03/30/2018 VITAMIN B12 INJECTION CPT- 4: J3420 03/30/2018 THER/PROPH/DIAG INJ SC/IM CPT-4: 36926 03/03/2018 VITAMIN B12 INJECTION CPT- 4: J3420 03/03/2018 THER/PROPH/DIAG INJ SC/IM CPT-4: 28948 01/28/2018 VITAMIN B12 INJECTION CPT- 4: J3420 01/28/2018 THER/PROPH/DIAG INJ SC/IM CPT-4: 97130 12/29/2017 VITAMIN B12 INJECTION CPT- 4: J3420 12/29/2017 THER/PROPH/DIAG INJ SC/IM CPT-4: 95160 12/01/2017 VITAMIN B12 INJECTION CPT- 4: J3420 12/01/2017 VITAMIN B12 INJECTION CPT- 4: J3420 10/28/2017 THER/PROPH/DIAG INJ SC/IM CPT-4: 86447 10/28/2017 THER/PROPH/DIAG INJ SC/IM CPT-4: 55789 09/29/2017 VITAMIN B12 INJECTION CPT- 4: J3420 09/29/2017 THER/PROPH/DIAG INJ SC/IM CPT-4: 97024 09/02/2017 VITAMIN B12 INJECTION CPT- 4: J3420 09/02/2017 THER/PROPH/DIAG INJ SC/IM CPT-4: 99718 08/04/2017 VITAMIN B12 INJECTION CPT- 4: J3420 08/04/2017 THER/PROPH/DIAG INJ SC/IM CPT-4: 46043 07/01/2017 VITAMIN B12 INJECTION CPT- 4: J3420 07/01/2017 THER/PROPH/DIAG INJ SC/IM CPT-4: 11751 05/30/2017 VITAMIN B12 INJECTION CPT- 4: J3420 05/30/2017 THER/PROPH/DIAG INJ SC/IM CPT-4: 12323 2017 ADMIN INFLUENZA VIRUS VAC CPT-4: G0008 2017 TOBACCO-USE CUSTOMER DEVELOPMENT MANAGER 3-[address]: 360081834 CPT-4: G0436 2017 VITAMIN B12 INJECTION CPT- 4: J3420 2017 FLU VACC PRSV FREE INC ANTIG CPT-4: 65485 2017 TOBACCO-USE CUSTOMER DEVELOPMENT MANAGER 3-[address]: 775876476 CPT-4: G0436 03/31/2017 VITAMIN B12 INJECTION CPT- 4: J3420 03/31/2017 THER/PROPH/DIAG INJ SC/IM CPT-4: 99342 02/28/2017 VITAMIN B12 INJECTION CPT- 4: J3420 02/28/2017 THER/PROPH/DIAG INJ SC/IM CPT-4: 81700 02/03/2017 VITAMIN B12 INJECTION CPT- 4: J3420 02/03/2017 TOBACCO-USE CUSTOMER DEVELOPMENT MANAGER 3-[address]: 624004176 CPT-4: G0436 12/30/2016 THER/PROPH/DIAG INJ SC/IM CPT-4: 63212 12/30/2016 VITAMIN B12 INJECTION CPT- 4: J3420 12/30/2016 THER/PROPH/DIAG INJ SC/IM CPT-4: 05051 12/02/2016 VITAMIN B12 INJECTION CPT- 4: J3420 12/02/2016 THER/PROPH/DIAG INJ SC/IM CPT-4: 64528 10/29/2016 VITAMIN B12 INJECTION CPT- 4: J3420 10/29/2016 THER/PROPH/DIAG INJ SC/IM CPT-4: 22046 10/01/2016 VITAMIN B12 INJECTION CPT- 4: J3420 10/01/2016 TOBACCO-USE CUSTOMER DEVELOPMENT MANAGER 3-[address]: 086156886 CPT-4: G0436 09/02/2016 VITAMIN B12 INJECTION CPT- 4: J3420 09/02/2016 THER/PROPH/DIAG INJ SC/IM CPT-4: 39157 09/02/2016 THER/PROPH/DIAG INJ SC/IM CPT-4: 67997 08/05/2016 VITAMIN B12 INJECTION CPT- 4: J3420 08/05/2016 THER/PROPH/DIAG INJ SC/IM CPT-4: 99969 07/02/2016 VITAMIN B12 INJECTION CPT- 4: J3420 07/02/2016 VITAMIN B12 INJECTION CPT- 4: J3420 06/03/2016 THER/PROPH/DIAG INJ SC/IM CPT-4: 34785 06/03/2016 THER/PROPH/DIAG INJ SC/IM CPT-4: 02669 2016 VITAMIN B12 INJECTION CPT- 4: J3420 2016 THER/PROPH/DIAG INJ SC/IM CPT-4: 70353 04/01/2016 VITAMIN B12 INJECTION CPT- 4: J3420 04/01/2016 VITAMIN B12 INJECTION CPT- 4: J3420 03/05/2016 THER/PROPH/DIAG INJ SC/IM CPT-4: 14974 03/05/2016 TOBACCO-USE CUSTOMER DEVELOPMENT MANAGER 3-[address]: 396010549 CPT-4: G0436 01/29/2016 THER/PROPH/DIAG INJ SC/IM CPT-4: 17851 01/29/2016 VITAMIN B12 INJECTION CPT- 4: J3420 01/29/2016 THER/PROPH/DIAG INJ SC/IM CPT-4: 48127 01/02/2016 VITAMIN B12 INJECTION CPT- 4: J3420 01/02/2016 VITAMIN B12 INJECTION CPT- 4: J3420 12/04/2015 THER/PROPH/DIAG INJ SC/IM CPT-4: 82133 12/04/2015 THER/PROPH/DIAG INJ SC/IM CPT-4: 65549 10/30/2015 VITAMIN B12 INJECTION CPT- 4: J3420 10/30/2015 PPPS, SUBSEQ VISIT CPT- 4: G0439 10/11/2015 TOBACCO-USE CUSTOMER DEVELOPMENT MANAGER 3-[address]: 594889148 CPT-4: G0436 10/11/2015 TOBACCO-USE CUSTOMER DEVELOPMENT MANAGER 3-[address]: 119177845 CPT-4: G0436 10/02/2015 THER/PROPH/DIAG INJ SC/IM CPT-4: 42218 10/02/2015 VITAMIN B12 INJECTION CPT- 4: J3420 10/02/2015 THER/PROPH/DIAG INJ SC/IM CPT-4: 20819 08/29/2015 VITAMIN B12 INJECTION CPT- 4: J3420 08/29/2015 THER/PROPH/DIAG INJ SC/IM CPT-4: 49267 07/31/2015 VITAMIN B12 INJECTION CPT- 4: J3420 07/31/2015 THER/PROPH/DIAG INJ SC/IM CPT-4: 17016 07/03/2015 VITAMIN B12 INJECTION CPT- 4: J3420 07/03/2015 THER/PROPH/DIAG INJ SC/IM CPT-4: 01944 06/05/2015 VITAMIN B12 INJECTION CPT- 4: J3420 06/05/2015 VITAMIN B12 INJECTION CPT- 4: J3420 05/01/2015 THER/PROPH/DIAG INJ SC/IM CPT-4: 86115 05/01/2015 THER/PROPH/DIAG INJ SC/IM CPT-4: 77384 04/03/2015 VITAMIN B12 INJECTION CPT- 4: J3420 04/03/2015 THER/PROPH/DIAG INJ SC/IM CPT-4: 40760 02/28/2015 VITAMIN B12 INJECTION CPT- 4: J3420 02/28/2015 THER/PROPH/DIAG INJ SC/IM CPT-4: 44390 01/30/2015 VITAMIN B12 INJECTION CPT- 4: J3420 01/30/2015 VITAMIN B12 INJECTION CPT- 4: J3420 01/02/2015 THER/PROPH/DIAG INJ SC/IM CPT-4: 89102 01/02/2015 THER/PROPH/DIAG INJ SC/IM CPT-4: 24888 11/28/2014 VITAMIN B12 INJECTION CPT- 4: J3420 11/28/2014 THER/PROPH/DIAG INJ SC/IM CPT-4: 56423 10/31/2014 VITAMIN B12 INJECTION CPT- 4: J3420 10/31/2014 THER/PROPH/DIAG INJ SC/IM CPT-4: 39299 10/03/2014 VITAMIN B12 INJECTION CPT- 4: J3420 10/03/2014 THER/PROPH/DIAG INJ SC/IM CPT-4: 17204 08/30/2014 VITAMIN B12 INJECTION CPT- 4: J3420 08/30/2014 THER/PROPH/DIAG INJ SC/IM CPT-4: 25665 08/02/2014 VITAMIN B12 INJECTION CPT- 4: J3420 08/02/2014 THER/PROPH/DIAG INJ SC/IM CPT-4: 89285 07/04/2014 VITAMIN B12 INJECTION CPT- 4: J3420 07/04/2014 THER/PROPH/DIAG INJ SC/IM CPT-4: 83518 05/30/2014 VITAMIN B12 INJECTION CPT- 4: J3420 05/30/2014 THER/PROPH/DIAG INJ SC/IM CPT-4: 24948 05/02/2014 VITAMIN B12 INJECTION CPT- 4: J3420 05/02/2014 THER/PROPH/DIAG INJ SC/IM CPT-4: 06010 04/05/2014 THER/PROPH/DIAG INJ SC/IM CPT-4: 21357 03/07/2014 VITAMIN B12 INJECTION CPT- 4: J3420 03/07/2014 THER/PROPH/DIAG INJ SC/IM CPT-4: 34935 02/01/2014 VITAMIN B12 INJECTION CPT- 4: J3420 02/01/2014 VITAMIN B12 INJECTION CPT- 4: J3420 12/30/2013 THER/PROPH/DIAG INJ SC/IM CPT-4: 10370 12/30/2013 THER/PROPH/DIAG INJ SC/IM CPT-4: 19501 11/30/2013 VITAMIN B12 INJECTION CPT- 4: J3420 11/30/2013 THER/PROPH/DIAG INJ SC/IM CPT-4: 09666 11/02/2013 VITAMIN B12 INJECTION CPT- 4: J3420 11/02/2013 THER/PROPH/DIAG INJ SC/IM CPT-4: 76705 08/31/2013 VITAMIN B12 INJECTION CPT- 4: J3420 08/31/2013 THER/PROPH/DIAG INJ SC/IM CPT-4: 26664 08/04/2013 VITAMIN B12 INJECTION CPT- 4: J3420 08/04/2013 VITAMIN B12 INJECTION CPT- 4: J3420 07/06/2013 THER/PROPH/DIAG INJ SC/IM CPT-4: 14296 07/06/2013 THER/PROPH/DIAG INJ SC/IM CPT-4: 96100 05/31/2013 VITAMIN B12 INJECTION CPT- 4: J3420 05/31/2013 ADMIN INFLUENZA VIRUS VAC CPT-4: G0008 05/04/2013 FLULAVAL VACC, 3 YRS & >, IM CPT-4: Q2036 05/04/2013 THER/PROPH/DIAG INJ SC/IM CPT-4: 94219 05/04/2013 VITAMIN B12 INJECTION CPT- 4: J3420 05/04/2013 THER/PROPH/DIAG INJ SC/IM CPT-4: 41560 03/30/2013 VITAMIN B12 INJECTION CPT- 4: J3420 03/30/2013 THER/PROPH/DIAG INJ SC/IM CPT-4: 44500 03/02/2013 VITAMIN B12 INJECTION CPT- 4: J3420 03/02/2013 [id number] EST. PATIENT, LEVEL IV CPT-4: 38749 03/02/2013 THER/PROPH/DIAG INJ SC/IM CPT-4: 60295 02/02/2013 VITAMIN B12 INJECTION CPT- 4: J3420 02/02/2013 THER/PROPH/DIAG INJ SC/IM CPT-4: 37133 12/29/2012 VITAMIN B12 INJECTION CPT- 4: J3420 12/29/2012 TRIAMCINOLONE ACET INJ NOS CPT-4: J3301 12/01/2012 VITAMIN B12 INJECTION CPT- 4: J3420 12/01/2012 VITAMIN B12 INJECTION CPT- 4: J3420 11/03/2012 THER/PROPH/DIAG INJ SC/IM CPT-4: 12548 11/03/2012 THER/PROPH/DIAG INJ SC/IM CPT-4: 09777 09/30/2012 VITAMIN B12 INJECTION CPT- 4: J3420 09/30/2012 PRESCRIP TRANSMIT VIA ERX SY CPT-4: G8553 09/30/2012 VITAMIN B12 INJECTION CPT- 4: J3420 09/08/2012 THER/PROPH/DIAG INJ SC/IM CPT-4: 52732 09/08/2012 THER/PROPH/DIAG INJ SC/IM CPT-4: 20642 08/25/2012 ROUTINE VENIPUNCTURE CPT- 4: 51697 08/25/2012 VITAMIN B12 INJECTION CPT- 4: J3420 08/25/2012 THER/PROPH/DIAG INJ SC/IM CPT-4: 17331 08/11/2012 VITAMIN B12 INJECTION CPT- 4: J3420 08/11/2012 VITAMIN B12 INJECTION CPT- 4: J3420 07/21/2012 THER/PROPH/DIAG INJ SC/IM CPT-4: 67381 07/21/2012 THER/PROPH/DIAG INJ SC/IM CPT-4: 05126 07/07/2012 VITAMIN B12 INJECTION CPT- 4: J3420 07/07/2012 ROUTINE VENIPUNCTURE CPT- 4: 66740 07/07/2012 VITAMIN B12 INJECTION CPT- 4: J3420 06/25/2012 THER/PROPH/DIAG INJ SC/IM CPT-4: 55748 06/25/2012 VITAMIN B12 INJECTION CPT- 4: J3420 06/09/2012 THER/PROPH/DIAG INJ SC/IM CPT-4: 77560 06/09/2012 VITAMIN B12 INJECTION CPT- 4: J3420 05/25/2012 THER/PROPH/DIAG INJ SC/IM CPT-4: 30867 05/25/2012 VITAMIN B12 INJECTION CPT- 4: J3420 05/12/2012 THER/PROPH/DIAG INJ SC/IM CPT-4: 66503 05/12/2012 VITAMIN B12 INJECTION CPT- 4: J3420 04/20/2012 THER/PROPH/DIAG INJ SC/IM CPT-4: 43399 04/20/2012 THER/PROPH/DIAG INJ SC/IM CPT-4: 32407 04/07/2012 VITAMIN B12 INJECTION CPT- 4: J3420 04/07/2012 VITAMIN B12 INJECTION CPT- 4: J3420 03/10/2012 THER/PROPH/DIAG INJ SC/IM CPT-4: 97977 03/10/2012 VITAMIN B12 INJECTION CPT- 4: J3420 02/18/2012 THER/PROPH/DIAG INJ SC/IM CPT-4: 48555 02/18/2012 THER/PROPH/DIAG INJ SC/IM CPT-4: 30308 02/04/2012 VITAMIN B12 INJECTION CPT- 4: J3420 02/04/2012 THER/PROPH/DIAG INJ SC/IM CPT-4: 28642 01/21/2012 VITAMIN B12 INJECTION CPT- 4: J3420 01/21/2012 VITAMIN B12 INJECTION CPT- 4: J3420 01/07/2012 VITAMIN B12 INJECTION CPT- 4: J3420 12/17/2011 URINALYSIS NONAUTO W/O SCOPE CPT-4: 11880 12/10/2011 ROUTINE VENIPUNCTURE CPT- 4: 58042 12/10/2011 URINALYSIS NONAUTO W/O SCOPE CPT-4: 34338 11/26/2011 Vital Signs Date Vital 11/05/2017 Blood Pressure 1: 136/82 Code: 8480-6 BMI: 25.7 Code: 35084-7 Heart Rate 1: 78 bpm Height: 5'7" SpO2: 97% Weight: 164 lbs 10/28/2017 Height: 5'7" 12/18/2015 Blood Pressure 1: 140/68 Code: 8480-6 BMI: 25.7 Code: 05439-6 Heart Rate 1: 83 bpm Height: 5'7" SpO2: 95% Weight: 164 lbs 10/11/2015 Blood Pressure 1: 128/80 Code: 8480-6 BMI: 26.0 Code: 76857-4 Heart Rate 1: 80 bpm Height: 5'7" SpO2: 97% Waist Measure (cm): 89 cm Weight: 166 lbs 01/16/2015 Blood Pressure 1: 122/84 Code: 8480-6 BMI: 25.7 Code: 07299-6 Heart Rate 1: 68 bpm Height: 5'7" SpO2: 95% Weight: 164 lbs 08/02/2014 Blood Pressure 1: 140/86 Code: 8480-6 BMI: 25.1 Code: 07352-1 Heart Rate 1: 64 bpm Height: 5'7" Weight: 160 lbs 03/02/2013 Blood Pressure 1: 108/74 Code: 8480-6 BMI: 28.3 Code: 34222-4 Heart Rate 1: 80 bpm Height: 5'7" Weight: 181 lbs 09/30/2012 Blood Pressure 1: 126/74 Code: 8480-6 Heart Rate 1: 64 bpm Weight: 07/07/2012 Blood Pressure 1: 130/84 Code: 8480-6 BMI: 26.6 Code: 32201-5 Heart Rate 1: 80 bpm Height: 5'7" [...] 1: 110/68 Code: 8480-6 BMI: 25.7 Code: 75709-4 Heart Rate 1: 68 bpm Height: 5'7" [...] data Encounters Encounter Performer Location Codes Date 40592 EST. PATIENT, LEVEL III Diagnosis: Other schizophrenia[ICD10: F20.89] Diagnosis: Generalized anxiety disorder[ICD10: F41.1] Diagnosis: Major depressive disorder, single episode, moderate[ICD10: F32.1] [facility] CPT-4: 23169 11/05/2017 [id number] EST. PATIENT, LEVEL III Diagnosis: Encounter for follow-up examination after completed treatment for conditions other than malignant neoplasm[ICD10: Z09] Susan Vitale MD, [facility] CPT-4: 52446 12/18/2015 [id number] EST. PATIENT, LEVEL IV Diagnosis: Cellulitis of right lower limb[ICD10: L03.115] Diagnosis: Vitamin B12 deficiency anemia due to intrinsic factor deficiency[ICD10: D51.0] Loren Vitale MD, [facility] CPT-4: 93768 12/04/2015 ([id number]) Miscellaneous no charge Diagnosis: Vitamin B deficiency, unspecified[ICD10: E53.9] Loren Vitale MD, [facility] CPT-4: 85812 07/31/2015 ([id number]) 54568 EST. PATIENT, LEVEL IV Diagnosis: Schizophrenia[ICD9: 295.90] Diagnosis: DEPRESSIVE DISORDER NEC[ICD9: 311] Diagnosis: Medication dose changed[ICD9: V58.69] Diagnosis: Leg pain[ICD9: 729.5] Loren Vitale MD, [facility] CPT-4: 72203 01/16/2015 ([id number]) 39824 EST. PATIENT, LEVEL III Diagnosis: Rash[ICD9: 782.1] Camille Vitale MD, [facility] CPT-4: 47271 08/02/2014 ([id number]) Miscellaneous no charge Diagnosis: SCHIZO NOS, CHRN[ICD9: 295.92] Loren Vitale MD, [facility] CPT-4: 86217 05/03/2013 ([id number]) 37742 EST. PATIENT, LEVEL III Diagnosis: Rash[ICD9: 782.1] Diagnosis: B-COMPLEX DEFIC NEC[ICD9: 266.2] Loren Vitale MD, [facility] CPT-4: 53452 09/30/2012 ([id number]) 93220 EST. PATIENT, LEVEL IV Diagnosis: SCHIZO NOS, CHRN[ICD9: 295.92] Diagnosis: DEMEN NOS W/O BEHV DSTRB[ICD9: 294.20] Loren Vitale MD, [facility] CPT-4: 91298 07/07/2012 ([id number]) 46249 EST. PATIENT, LEVEL IV Diagnosis: DEMEN NOS W/O BEHV DSTRB[ICD9: 294.20] Diagnosis: SCHIZO NOS, CHRN[ICD9: 295.92] Diagnosis: Vitamin B 12 deficiency[ICD9: 266.2] Loren Vitale MD, [facility] CPT- 4: 15535 01/07/2012 ([id number] 04327 EST. PATIENT, LEVEL IV Diagnosis: DEMEN NOS W/O BEHV DSTRB[ICD9: 294.20] Diagnosis: ALTERED MENTAL STATUS[ICD9: 780.97] Diagnosis: Myalgia[ICD9: 729.1] Loren Vitale MD, [facility] CPT-4: 08332 12/17/2011 [id number] [id number] EST. PATIENT, LEVEL IV Diagnosis: Orthostatic hypotension[ICD9: 458.0] Diagnosis: Hypokalemia[ICD9: 276.8] Diagnosis: DEMEN NOS W/O BEHV DSTRB[ICD9: 294.20] Diagnosis: SCHIZO NOS, CHRN[ICD9: 295.92] Diagnosis: ALTERED MENTAL STATUS[ICD9: 780.97] Camille Vitale MD, [facility] CPT-4: 16290 12/10/2011 OFFICE/OUTPATIENT VISIT NEW Diagnosis: Schizophrenia, chronic condition[ICD9: 295.92] Diagnosis: Encounter for long-term (current) use of other high-risk medications[ICD9: V58.69] Loren Vitale MD, [facility] CPT-4: 34917 11/26/2011 Plan of Care Planned Activity Notes Codes Status Date Patient Education: Patient Medication Summary Completed 2018 [...] medications. 11/05/2017 [phone] [id number] ([facility] 11/05/2017 Patient Education: Patient Medication Summary [...] pain. 12/18/2015 Appointment: [id number] ([facility] min) Complex 12/18/2015 Patient Education: [...] in pain. 12/04/2015 Appointment: [facility]udd [phone] [facility] [place] (10 min) Simple 12/04/2015 [...] paperwork for health care surrogate. 10/11/2015 Appointment: [facility] - Annual Wellness Visit 10/11/2015 Patient Education: [...] labs. 01/16/2015 [facility]ment[phone] [place] (15 min) Moderate 01/16/2015 Patient Education: Patient Medication Summary Completed 01/16/2015 Appointment: Injection 01/02/2015 Patient Education: Patient Medication Summary Completed 01/02/2015 Patient Education: Patient Medication Summary Completed 11/28/2014 Patient Education: Patient Medication Summary Completed 10/31/2014 Patient Education: Patient Medication Summary Completed 10/03/2014 Patient Education: Patient Medication Summary Completed 08/30/2014 Visit Plan: Wiko-nycguumv-yizfzkxtacwlw cream to affected area twice daily as directed-call if rash does not completely resolve B12 deficiency-B12 injection today in the office 08/02/2014 Appointment: Camille Devi [facility]el[facility] [phone] [id number] [place] Sick 08/02/2014 Patient Education: Patient Medication Summary Completed 08/02/2014 Patient Education: Patient Medication Summary Completed 07/04/2014 Patient Education: Patient Medication Summary Completed 05/30/2014 App[facility]ment: [phone] [place] Injection 05/02/2014 Patient Education: Patient Medication Summary Completed 05/02/2014 Patient Education: Patient Medication Summary Completed 04/05/2014 Appointment: Cam[facility] Devi [facility]el[facility] [phone] [id number] [place] Injection 03/07/2014 Patient Education: Patient Medication Summary Completed 03/07/2014 [facility]ment: [phone] [place] [facility] 02/01/2014 Patient Education: Patient Medication Summary Completed 02/01/2014 App[facility]ment: [phone] [place] [facility] 12/30/2013 Patient Education: Patient Medication Summary Completed 12/30/2013 Appointment: [facility]el[phone] [place] [facility] 11/30/2013 Patient Education: Patient Medication Summary Completed 11/30/2013 Appointment: Camille Devi [facility]el: [phone] [id number] [place] Injection 11/02/2013 Patient Education: Patient Medication Summary Completed 11/02/2013 Appointment: [facility]el: [phone] [facility] [place] In[facility] 09/28/2013 Appointment: [facility]el[phone] [facility] [place] [facility] 08/31/2013 Patient Education: Patient Medication Summary Completed 08/31/2013 Patient Education: Patient Medication Summary Completed 08/04/2013 Appointment: [facility]el: [phone] [facility] [place] [facility] 08/03/2013 Appointment: [facility]Ptel: [phone] [place] [facility] 07/06/2013 Patient Education: Patient Medication Summary Completed 07/06/2013 Appointment: Camille Devi [facility]Ptel: [phone] [phone] [place] Injection 05/31/2013 Patient Education: Patient Medication Summary Completed 05/31/2013 Appointment: Camille Devi WPtel: [phone] [place] Injection 05/04/2013 Patient Education: [...] psychiatrist. 05/03/2013 Appointment: [facility]Ptel: [phone] [facility] [place] Other 05/03/2013 Patient Education: Patient Medication Summary Completed 05/03/2013 Appointment: Cam[facility] Devi [facility]Ptel: [phone] [phone] [place] Injection 03/30/2013 Patient Education: [...] He is to see Dr. Treviño at [facility]. 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 03/02/2013 Appointment: Loren Vitale WPtel: [facility] [facility] 03/02/2013 Patient Education: Patient Medication Summary Completed 03/02/2013 Appointment: [facility]ale [facility]Ptel: [phone] [facility] [place] Injection 02/02/2013 Patient Education: Patient Medication Summary Completed 02/02/2013 Patient Education: Patient Medication Summary Completed 12/29/2012 Appointment: Camille Devi WPtel: [phone] [facility] [place] Injection 12/01/2012 Patient Education: Patient Medication Summary Completed 12/01/2012 App[facility]ment: [phone] [facility] [place] In[facility] 11/03/2012 Patient Education: Patient Medication Summary Completed 11/03/2012 Visit Plan: Rash-discussed natural and expected course of this diagnosis and to alert me if symptoms do not follow expected course, or if any worse. RX sent to patient's pharmacy and instructed on use. B12 def-injection today in the office 09/30/2012 Appointment: [facility] [phone] [facility] [place] Other 09/30/2012 Patient Education: Patient Medication Summary Completed 09/30/2012 Patient Education: Patient Medication Summary Completed 09/08/2012 App[facility]ment: [phone] [id number] [place] Injection 08/25/2012 Patient Education: Patient Medication Summary Completed 08/25/2012 Appointment: [facility]el[facility] [phone] [facility] [place] Injection 08/11/2012 Patient Education: Patient Medication Summary Completed 08/11/2012 App[facility]ment: [phone] [facility] [place] Injection 07/21/2012 Patient Education: [...] He is to see Dr. Treviño at [facility]. 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 07/07/2012 Appointment: [facility]el[facility] [phone] [facility] [place] Follow up 07/07/2012 Patient Education: Patient Medication Summary Completed 07/07/2012 Patient Education: Patient Medication Summary Completed 06/25/2012 Patient Education: Patient Medication Summary Completed 06/09/2012 Patient Education: Patient Medication Summary Completed 05/25/2012 Appointment: [facility]el[facility] [phone] [facility] [place] Injection 05/12/2012 Patient Education: Patient Medication Summary Completed 05/12/2012 Patient Education: Patient Medication Summary Completed 04/20/2012 Appointment: Cam[facility] Dev[facility]el[facility] [phone] [id number] [place] Injection 04/07/2012 Patient Education: Patient Medication Summary Completed 04/07/2012 Appointment: [facility]el: [phone] [facility] [place] Injection 03/24/2012 Appointment: Marito Camille [facility]el[facility] [phone] [id number] [place] Injection 03/10/2012 Patient Education: Patient Medication Summary Completed 03/10/2012 App[facility]ment: [facility]el: [phone] [facility] [place] [facility] 02/18/2012 Patient Education: Patient Medication Summary Completed 02/18/2012 App[facility]ment: [facility]el[phone] [facility] [place] [facility]jection 02/04/2012 Patient Education: Patient Medication Summary Completed 02/04/2012 Appointment: Loren Vitale WPtel: [phone] [facility] [place] Injection 01/21/2012 Patient Education: Patient [...] normal. 01/07/2012 Appointment: [facility]el: [phone] [facility] [place] Other 01/07/2012 Patient Education: [...] ahold of Juan's psychiatrist who is in [place], but he is apparently on vacation to the [facility] and may not respond until he gets back in December. I think that Juan's medications need adjusted and that is the largest part of his new symptoms. 12/17/2011 Appointment: Loren Vitale WPtel: [facility] Other 12/17/2011 Patient Education: Patient [...] about assistance. 12/10/2011 Appointment: Camille Devi WPtel: [facility] [place] Work-in 12/10/2011 Patient Education: Patient Medication Summary [...] expressed understanding. 11/26/2011 Appointment: [facility] Vitale [facility]Ptel: [phone] [facility] New Patient 11/26/2011 Patient Education: [...] He is to see Dr. Treviño at [facility]. 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 . Rash-discussed natural and expected course of this diagnosis and to alert me if symptoms do not follow expected course, or if any worse. RX sent to patient's pharmacy and instructed on use. B12 def-injection today in the office . Obyf-iqnjerpa-bdsquidmhxess cream to affected area twice daily as directed-call if rash does not completely resolve B12 deficiency-B12 injection today in the office . Abscess/Cellulitis - right inner thigh lesion resolved - The patient is to call for any change in symptoms, increase in size of the lesion, increase in pain. . Pt's brother was explained to that [...] be scheduled. I will attempt to get wilsonold of Juan's psychiatrist who is in [place], but he is apparently on vacation to the [facility] and may not respond until he gets back in December. I think that Juan's medications need adjusted and that is the largest part of his new symptoms. . Vascular Dementia - Pt with slowly [...] keep his B12 levels at normal. . 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 His UA was negative. Time based documentation -I spent over 60 minutes with the patient in discussion of the disease process, expected course, and overall prognosis for the patient's disease state. The patient/family expressed understanding. . Schizophrenia - continue with chronic home [...] exposure. No change in current medications. . Abscess/Cellulitis - The patient was instructed in appropriate wound care. The patient was instructed to use the antibiotic ointment as per RX. The patient is to call for any change in symptoms, increase in size of the lesion, increase in pain. . Medicare Exam - today we discussed [...] [employer] paperwork for health care surrogate. . Hypotension-discussed natural and expected course of [...] and speak with them about assistance. . Vascular Dementia - Pt with slowly progressive pattern. I have discussed with pt and family the prognosis of this disease state and the need for the family to anticipate further decline with behavior changes. Continue with current plan of treatment. Schizophrenia - pt to continue with his current medications. He is to see Dr. Treviño at [facility] soon. B 12 deficiency and folate deficiency - [...]
--- OUTSIDE RECORDS SUMMARY | 2018-12-22 16:09 | XMS REPORT | CCD ---
Author Author Loren Vitale MD, [facility] Address [address] [place] [address] Phone Care Team Providers Care Patient Care Associate Name Role Phone PP Unavailable CCM Unavailable Summary Purpose Interface Exchange Insurance Providers Payer name Policy type / Coverage type Covered green party ID Effective Begin Date Effective End Date WPS Medicare Part B Medicare Part B [id number] Unknown [place] [employer] Medicare Part B [id number] Unknown Family history Sister Diagnosis Age At Onset No Family Disease Entered N/A First cousin Diagnosis Age At Onset No Family Disease Entered N/A Mother Diagnosis Age At Onset Dementia Unknown Social History Social History Element Codes Description Effective Dates Marital status Unknown Single 11/26/[address]: 08292847 Current every day smoker 2 packs daily 11/26/[address]: 348025485 Never drinks alcohol 11/26/2011 Has the patient [...] 100 mg tablet, 12 hr sustained-release RxNorm: 707481 TAKE ONE TABLET BY MOUTH EVERY NIGHT AT BEDTIME 04/28/2018 10/24/2018 Active cyanocobalamin (vit B-12) 1,000 mcg/mL injection solution RxNorm: 396919 Milliliter(s) Inj 03/30/2018 03/30/2018 Inactive cyanocobalamin (vit B-12) 1,000 mcg/mL injection solution RxNorm: 813210 1 Milliliter(s) Inj 03/03/2018 03/03/2018 Inactive cyanocobalamin (vit B-12) 1,000 mcg/mL injection solution RxNorm: 669162 1 Milliliter(s) Inj 01/28/2018 01/28/2018 Inactive cyanocobalamin (vit B-12) 1,000 mcg/mL injection solution RxNorm: 986553 Milliliter(s) Inj 12/29/2017 12/29/2017 Inactive cyanocobalamin (vit B-12) 1,000 mcg/mL injection solution RxNorm: 603536 1 Milliliter(s) Inj 12/01/2017 12/01/2017 Inactive Wellbutrin SR 100 mg tablet, 12 hr sustained-release RxNorm: 676347 TAKE ONE TABLET BY MOUTH EVERY NIGHT AT BEDTIME 10/28/2017 04/25/2018 Inactive cyanocobalamin (vit B-12) 1,000 mcg/mL injection solution RxNorm: 882835 1 Milliliter(s) Inj 10/28/2017 10/28/2017 Inactive cyanocobalamin (vit B-12) 1,000 mcg/mL injection solution RxNorm: 990702 Milliliter(s) Inj 09/29/2017 09/29/2017 Inactive cyanocobalamin (vit B-12) 1,000 mcg/mL injection solution RxNorm: 582355 Milliliter(s) Inj 09/02/2017 09/02/2017 Inactive cyanocobalamin (vit B-12) 1,000 mcg/mL injection solution RxNorm: 140310 Milliliter(s) Inj 08/04/2017 08/04/2017 Inactive cyanocobalamin (vit B-12) 1,000 mcg/mL injection solution RxNorm: 390579 1 Milliliter(s) Inj 07/01/2017 07/01/2017 Inactive cyanocobalamin (vit B-12) 1,000 mcg/mL injection solution RxNorm: 818059 Milliliter(s) Inj 05/30/2017 05/30/2017 Inactive cyanocobalamin (vit B-12) 1,000 mcg/mL injection solution RxNorm: 823433 1 Milliliter(s) Inj 2017 2017 Inactive Wellbutrin SR 100 mg tablet, 12 hr sustained-release RxNorm: 524079 TAKE ONE TABLET BY MOUTH EVERY NIGHT AT BEDTIME 04/23/2017 10/19/2017 Inactive cyanocobalamin (vit B-12) 1,000 mcg/mL injection solution RxNorm: 650435 Milliliter(s) Inj 03/31/2017 03/31/2017 Inactive cyanocobalamin (vit B-12) 1,000 mcg/mL injection solution RxNorm: 281510 Milliliter(s) Inj 02/28/2017 02/28/2017 Inactive cyanocobalamin (vit B-12) 1,000 mcg/mL injection solution RxNorm: 926007 Milliliter(s) Inj 02/03/2017 02/03/2017 Inactive cyanocobalamin (vit B-12) 1,000 mcg/mL injection solution RxNorm: 473741 1 Milliliter(s) Inj 12/30/2016 12/30/2016 Inactive cyanocobalamin (vit B-12) 1,000 mcg/mL injection solution RxNorm: 628852 1 Milliliter(s) Inj 12/02/2016 12/02/2016 Inactive Wellbutrin SR 100 mg tablet, 12 hr sustained-release RxNorm: 605824 TAKE ONE TABLET BY MOUTH EVERY NIGHT AT BEDTIME 10/30/2016 04/22/2017 Inactive cyanocobalamin (vit B-12) 1,000 mcg/mL injection solution RxNorm: 110425 Milliliter(s) Inj 10/29/2016 10/29/2016 Inactive cyanocobalamin (vit B-12) 1,000 mcg/mL injection solution RxNorm: 521296 1 Milliliter(s) Inj 10/01/2016 10/01/2016 Inactive cyanocobalamin (vit B-12) 1,000 mcg/mL injection solution RxNorm: 228770 Milliliter(s) Inj 09/02/2016 09/02/2016 Inactive cyanocobalamin (vit B-12) 1,000 mcg/mL injection solution RxNorm: 635370 Milliliter(s) Inj 08/05/2016 08/05/2016 Inactive cyanocobalamin (vit B-12) 1,000 mcg/mL injection solution RxNorm: 682183 1 Milliliter(s) Inj 07/02/2016 07/02/2016 Inactive cyanocobalamin (vit B-12) 1,000 mcg/mL injection solution RxNorm: 996981 Milliliter(s) Inj 06/03/2016 06/03/2016 Inactive cyanocobalamin (vit B-12) 1,000 mcg/mL injection solution RxNorm: 150387 Milliliter(s) Inj 2016 2016 Inactive Wellbutrin SR 100 mg tablet,sustained-release RxNorm: 643398 1 Tablet(s) PO QHS 04/01/2016 10/27/2016 Inactive cyanocobalamin (vit B-12) 1,000 mcg/mL injection solution RxNorm: 333807 Milliliter(s) Inj 04/01/2016 04/01/2016 Inactive cyanocobalamin (vit B-12) 1,000 mcg/mL injection solution RxNorm: 729478 1 Milliliter(s) Inj 03/05/2016 03/05/2016 Inactive cyanocobalamin (vit B-12) 1,000 mcg/mL injection solution RxNorm: 853699 Milliliter(s) Inj 01/29/2016 01/29/2016 Inactive cyanocobalamin (vit B-12) 1,000 mcg/mL injection solution RxNorm: 307774 Milliliter(s) Inj 01/02/2016 01/02/2016 Inactive mupirocin 2 % topical ointment RxNorm: 260814 1 Application TOP BID 12/04/2015 No Stop Date Active doxycycline hyclate 100 mg capsule RxNorm: 1225163 1 Capsule(s) PO BID 12/04/2015 12/13/2015 Inactive cyanocobalamin (vit B-12) 1,000 mcg/mL injection solution RxNorm: 481757 Milliliter(s) Inj 10/30/2015 10/30/2015 Inactive cyanocobalamin (B12)-cobamamide 5,000 mcg-100 mcg sublingual tablet RxNorm: 026475 Tablet(s) SL 10/02/2015 10/02/2015 Inactive Wellbutrin SR 100 mg tablet,sustained-release RxNorm: 123644 1 Tablet(s) PO QHS 09/08/2015 03/31/2016 Inactive cyanocobalamin (vit B-12) 1,000 mcg/mL injection solution RxNorm: 133360 Milliliter(s) Inj 08/29/2015 08/29/2015 Inactive cyanocobalamin (vit B-12) 1,000 mcg/mL injection solution RxNorm: 552607 Milliliter(s) Inj 07/31/2015 07/31/2015 Inactive cyanocobalamin (vit B-12) 1,000 mcg/mL injection solution RxNorm: 728542 Milliliter(s) Inj 06/05/2015 06/05/2015 Inactive cyanocobalamin (vit B-12) 1,000 mcg/mL injection solution RxNorm: 283875 Milliliter(s) Inj 05/01/2015 05/01/2015 Inactive cyanocobalamin (vit B-12) 1,000 mcg/mL injection solution RxNorm: 033927 Milliliter(s) Inj 04/03/2015 04/03/2015 Inactive cyanocobalamin (vit B-12) 1,000 mcg/mL injection solution RxNorm: 698984 Milliliter(s) Inj 02/28/2015 02/28/2015 Inactive cyanocobalamin (vit B-12) 1,000 mcg/mL injection solution RxNorm: 599887 Milliliter(s) Inj 01/30/2015 01/30/2015 Inactive Wellbutrin SR 100 mg tablet,sustained-release RxNorm: 026847 1 Tablet(s) PO QHS 01/16/2015 08/13/2015 Inactive cyanocobalamin (vit B-12) 1,000 mcg/mL injection solution RxNorm: 596664 1 Milliliter(s) Inj 01/02/2015 01/02/2015 Inactive cyanocobalamin (vit B-12) 1,000 mcg/mL injection solution RxNorm: 631071 1 Milliliter(s) Inj 11/28/2014 11/28/2014 Inactive cyanocobalamin (vit B-12) 1,000 mcg/mL injection solution RxNorm: 274232 Milliliter(s) Inj 10/31/2014 10/31/2014 Inactive [SAVINGS FOR NON-COVERED DRUGS -- BIN:692249, PCN: ASPROD1, Group: XXXXX, ID# [id number], Questions: . THIS IS NOT INSURANCE.] cyanocobalamin (vit B-12) 1,000 mcg/mL injection solution RxNorm: 930294 1 Milliliter(s) Inj daily 10/03/2014 10/03/2014 Inactive [SAVINGS FOR NON-COVERED DRUGS -- BIN:360783, PCN: ASPROD1, Group: XXXXX, ID# [id number], Questions: . THIS IS NOT INSURANCE.] cyanocobalamin (vit B-12) 1,000 mcg/mL injection solution RxNorm: 874976 Milliliter(s) Inj 08/30/2014 08/30/2014 Inactive [SAVINGS FOR NON-COVERED DRUGS -- BIN:939637, PCN: ASPROD1, Group: XXXXX, ID# [id number], Questions: . THIS IS NOT INSURANCE.] nystatin-triamcinolone 100,000 unit/g-0.1 % topical cream RxNorm: 9548861 1 Application TOP BID 08/02/2014 08/08/2014 Inactive [SAVINGS FOR UNINSURED PATIENTS -- BIN:011749, PCN: ASPROD1, Group: [id number], ID# [id number], Process claim through MedImp[employer], for questions: . THIS IS NOT INSURANCE.] cyanocobalamin (vit B-12) 1,000 mcg/mL injection solution RxNorm: 922342 Milliliter(s) Inj 08/02/2014 08/02/2014 Inactive [SAVINGS FOR UNINSURED PATIENTS -- BIN:201139, PCN: ASPROD1, Group: [id number], ID# [id number], Process claim through [employer], for questions: . THIS IS NOT INSURANCE.] cyanocobalamin (vit B-12) 1,000 mcg/mL injection kit RxNorm: 279528 Milliliter(s) Inj 07/04/2014 07/04/2014 Inactive [SAVINGS FOR UNINSURED PATIENTS -- BIN:367343, PCN: ASPROD1, Group: [id number], ID# [id number], Process claim through [employer], for questions: . THIS IS NOT INSURANCE.] cyanocobalamin (vit B-12) 1,000 mcg/mL injection solution RxNorm: 839179 Milliliter(s) Inj 05/30/2014 05/30/2014 Inactive cyanocobalamin (vit B-12) 1,000 mcg/mL injection solution RxNorm: 255076 Milliliter(s) Inj 05/02/2014 05/02/2014 Inactive cyanocobalamin (vit B-12) 1,000 mcg/mL injection solution RxNorm: 206248 Milliliter(s) Inj 04/05/2014 04/05/2014 Inactive cyanocobalamin (vit B-12) 1,000 mcg/mL injection solution RxNorm: 630825 Milliliter(s) Inj 03/07/2014 03/07/2014 Inactive cyanocobalamin (vit B-12) 1,000 mcg/mL injection solution RxNorm: 343046 1 Milliliter(s) Inj 02/01/2014 02/01/2014 Inactive cyanocobalamin (vit B-12) 1,000 mcg/mL injection solution RxNorm: 314806 1 Milliliter(s) Inj 12/30/2013 12/30/2013 Inactive [SAVINGS FOR UNINSURED PATIENTS -- BIN:690370, PCN: ASPROD1, Group: [id number], ID# [id number], Process claim through [employer], for questions: . THIS IS NOT INSURANCE.] cyanocobalamin (vit B-12) 1,000 mcg/mL injection solution RxNorm: 811440 Milliliter(s) Inj 11/30/2013 11/30/2013 Inactive cyanocobalamin (vit B-12) 1,000 mcg/mL injection solution RxNorm: 901980 1 Milliliter(s) Inj 11/02/2013 11/02/2013 Inactive Vitamin B-12 1,000 mcg/mL injection solution RxNorm: 494689 Milliliter(s) Inj 08/31/2013 08/31/2013 Inactive Vitamin B-12 1,000 mcg/mL injection solution RxNorm: 871861 1 Milliliter(s) Inj 08/04/2013 08/04/2013 Inactive Vitamin B-12 1,000 mcg/mL injection solution RxNorm: 349349 Milliliter(s) Inj 07/06/2013 07/06/2013 Inactive cyanocobalamin (vit B-12) 1,000 mcg/mL injection solution RxNorm: 310057 Milliliter(s) Inj 05/31/2013 05/31/2013 Inactive cyanocobalamin (vit B-12) 1,000 mcg/mL injection kit RxNorm: 500418 Milliliter(s) Inj 05/04/2013 05/04/2013 Inactive cyanocobalamin (vitamin B-12) 1,000 mcg/mL Injection RxNorm: 030786 Milliliter(s) Inj 03/30/2013 03/30/2013 Inactive cyanocobalamin (vitamin B-12) 1,000 mcg/mL Injection RxNorm: 682227 Milliliter(s) Inj 02/02/2013 02/02/2013 Inactive cyanocobalamin (vitamin B-12) 1,000 mcg/mL Injection RxNorm: 709627 Milliliter(s) Inj 12/29/2012 12/29/2012 Inactive cyanocobalamin (vitamin B-12) 1,000 mcg/mL Injection RxNorm: 523960 Milliliter(s) Inj 12/01/2012 12/01/2012 Inactive Vitamin B-12 1,000 mcg tablet RxNorm: 313458 Tablet(s) PO 11/03/2012 11/03/2012 Inactive Vitamin B-12 1,000 mcg/mL Injection RxNorm: 846781 1 Milliliter(s) Inj 09/30/2012 09/30/2012 Inactive triamcinolone acetonide 0.1 % Topical Cream RxNorm: 6428479 1 Application TOP BID 09/30/2012 10/13/2012 Inactive Vitamin B-12 1,000 mcg/mL Injection RxNorm: 805197 1 Milliliter(s) Inj 09/08/2012 09/08/2012 Inactive cyanocobalamin (vitamin B-12) 1,000 mcg/mL Injection RxNorm: 845232 1 Milliliter(s) Inj 08/25/2012 08/25/2012 Inactive cyanocobalamin (vitamin B-12) 1,000 mcg/mL Injection RxNorm: 729288 1 Milliliter(s) Inj 08/11/2012 08/11/2012 Inactive cyanocobalamin (vitamin B-12) 1,000 mcg/mL Injection RxNorm: 260877 1 Milliliter(s) Inj 07/21/2012 07/21/2012 Inactive Vitamin B-12 1,000 mcg/mL Injection RxNorm: 568518 Milliliter(s) Inj 07/07/2012 07/07/2012 Inactive cyanocobalamin (vitamin B-12) 1,000 mcg/mL Injection RxNorm: 729510 1 Milliliter(s) Inj 06/25/2012 06/25/2012 Inactive Vitamin B-12 1,000 mcg/mL Injection RxNorm: 034897 1 Milliliter(s) Inj 06/09/2012 06/09/2012 Inactive Vitamin B-12 1,000 mcg/mL Injection RxNorm: 495237 Milliliter(s) Inj 05/25/2012 05/25/2012 Inactive Vitamin B-12 1,000 mcg/mL Injection RxNorm: 453061 Milliliter(s) Inj 05/12/2012 05/12/2012 Inactive Vitamin B-12 1,000 mcg/mL Injection RxNorm: 863022 Milliliter(s) Inj 04/20/2012 04/20/2012 Inactive Vitamin B-12 1,000 mcg/mL Injection RxNorm: 023128 Milliliter(s) Inj 04/07/2012 04/07/2012 Inactive Vitamin B-12 1,000 mcg/mL Injection RxNorm: 552668 Milliliter(s) Inj 03/10/2012 03/10/2012 Inactive Vitamin B-12 1,000 mcg/mL Injection RxNorm: 847847 Milliliter(s) Inj 02/18/2012 02/18/2012 Inactive Vitamin B-12 1,000 mcg/mL Injection RxNorm: 037619 Milliliter(s) Inj 02/04/2012 02/04/2012 Inactive Vitamin B-12 1,000 mcg/mL Injection RxNorm: 047385 Milliliter(s) Inj 01/21/2012 01/21/2012 Inactive Vitamin B-12 1,000 mcg/mL Injection RxNorm: 329601 Milliliter(s) Inj 01/07/2012 01/07/2012 Inactive Vitamin B-12 1,000 mcg/mL Injection RxNorm: 245872 Milliliter(s) Inj 12/17/2011 12/17/2011 Inactive KCL 10 meq RxNorm: 1 PO daily 12/12/2011 12/16/2011 Inactive Vitamin B-12 1,000 mcg/mL Injection RxNorm: 680881 1 Milliliter(s) Inj monthly No Start Date Active Wellbutrin SR 200 mg Tab RxNorm: 421383 1 Tablet(s) PO daily No Start Date Active Anafranil 25 mg Cap RxNorm: 379416 1 Capsule(s) PO daily No Start Date Active Stelazine 5 mg Tab RxNorm: 975012 1 Tablet(s) PO BID No Start Date Active clonazepam 1 mg Tab RxNorm: 458679 1 Tablet(s) PO BID No Start Date Active risperidone 3 mg Tab RxNorm: 223913 Tablet(s) PO No Start Date Active 2 on even days 3 on odd days Cogentin 1 mg Tab RxNorm: 696310 1 Tablet(s) PO TID No Start Date Active Medication Administered Medication Codes Instructions Start Date Status cyanocobalamin (vit B-12) 1,000 mcg/mL injection solution RxNorm: 200287 Milliliter 03/30/2018 No longer Active cyanocobalamin (vit B-12) 1,000 mcg/mL injection solution RxNorm: 518827 1Milliliter 03/03/2018 No longer Active cyanocobalamin (vit B-12) 1,000 mcg/mL injection solution RxNorm: 082632 1Milliliter 01/28/2018 No longer Active cyanocobalamin (vit B-12) 1,000 mcg/mL injection solution RxNorm: 831250 Milliliter 12/29/2017 No longer Active cyanocobalamin (vit B-12) 1,000 mcg/mL injection solution RxNorm: 665509 1Milliliter 12/01/2017 No longer Active cyanocobalamin (vit B-12) 1,000 mcg/mL injection solution RxNorm: 680534 1Milliliter 10/28/2017 No longer Active cyanocobalamin (vit B-12) 1,000 mcg/mL injection solution RxNorm: 742583 Milliliter 09/29/2017 No longer Active cyanocobalamin (vit B-12) 1,000 mcg/mL injection solution RxNorm: 346084 Milliliter 09/02/2017 No longer Active cyanocobalamin (vit B-12) 1,000 mcg/mL injection solution RxNorm: 986038 Milliliter 08/04/2017 No longer Active cyanocobalamin (vit B-12) 1,000 mcg/mL injection solution RxNorm: 694842 1Milliliter 07/01/2017 No longer Active cyanocobalamin (vit B-12) 1,000 mcg/mL injection solution RxNorm: 580266 Milliliter 05/30/2017 No longer Active cyanocobalamin (vit B-12) 1,000 mcg/mL injection solution RxNorm: 203460 1Milliliter 2017 No longer Active cyanocobalamin (vit B-12) 1,000 mcg/mL injection solution RxNorm: 895224 Milliliter 03/31/2017 No longer Active cyanocobalamin (vit B-12) 1,000 mcg/mL injection solution RxNorm: 863740 Milliliter 02/28/2017 No longer Active cyanocobalamin (vit B-12) 1,000 mcg/mL injection solution RxNorm: 510352 Milliliter 02/03/2017 No longer Active cyanocobalamin (vit B-12) 1,000 mcg/mL injection solution RxNorm: 203355 1Milliliter 12/30/2016 No longer Active cyanocobalamin (vit B-12) 1,000 mcg/mL injection solution RxNorm: 663470 1Milliliter 12/02/2016 No longer Active cyanocobalamin (vit B-12) 1,000 mcg/mL injection solution RxNorm: 885192 Milliliter 10/29/2016 No longer Active cyanocobalamin (vit B-12) 1,000 mcg/mL injection solution RxNorm: 706117 1Milliliter 10/01/2016 No longer Active cyanocobalamin (vit B-12) 1,000 mcg/mL injection solution RxNorm: 773605 Milliliter 09/02/2016 No longer Active cyanocobalamin (vit B-12) 1,000 mcg/mL injection solution RxNorm: 961578 Milliliter 08/05/2016 No longer Active cyanocobalamin (vit B-12) 1,000 mcg/mL injection solution RxNorm: 187482 1Milliliter 07/02/2016 No longer Active cyanocobalamin (vit B-12) 1,000 mcg/mL injection solution RxNorm: 906986 Milliliter 06/03/2016 No longer Active cyanocobalamin (vit B-12) 1,000 mcg/mL injection solution RxNorm: 398166 Milliliter 2016 No longer Active cyanocobalamin (vit B-12) 1,000 mcg/mL injection solution RxNorm: 849239 Milliliter 04/01/2016 No longer Active cyanocobalamin (vit B-12) 1,000 mcg/mL injection solution RxNorm: 599881 1Milliliter 03/05/2016 No longer Active cyanocobalamin (vit B-12) 1,000 mcg/mL injection solution RxNorm: 518500 Milliliter 01/29/2016 No longer Active cyanocobalamin (vit B-12) 1,000 mcg/mL injection solution RxNorm: 072452 Milliliter 01/02/2016 No longer Active cyanocobalamin (vit B-12) 1,000 mcg/mL injection solution RxNorm: 053134 Milliliter 10/30/2015 No longer Active cyanocobalamin (B12)-cobamamide 5,000 mcg-100 mcg sublingual tablet RxNorm: 020023 Tablet 10/02/2015 No longer Active cyanocobalamin (vit B-12) 1,000 mcg/mL injection solution RxNorm: 340074 Milliliter 08/29/2015 No longer Active cyanocobalamin (vit B-12) 1,000 mcg/mL injection solution RxNorm: 592945 Milliliter 07/31/2015 No longer Active cyanocobalamin (vit B-12) 1,000 mcg/mL injection solution RxNorm: 567913 Milliliter 06/05/2015 No longer Active cyanocobalamin (vit B-12) 1,000 mcg/mL injection solution RxNorm: 393309 Milliliter 05/01/2015 No longer Active cyanocobalamin (vit B-12) 1,000 mcg/mL injection solution RxNorm: 263331 Milliliter 04/03/2015 No longer Active cyanocobalamin (vit B-12) 1,000 mcg/mL injection solution RxNorm: 538160 Milliliter 02/28/2015 No longer Active cyanocobalamin (vit B-12) 1,000 mcg/mL injection solution RxNorm: 911163 Milliliter 01/30/2015 No longer Active cyanocobalamin (vit B-12) 1,000 mcg/mL injection solution RxNorm: 691505 1Milliliter 01/02/2015 No longer Active cyanocobalamin (vit B-12) 1,000 mcg/mL injection solution RxNorm: 402923 1Milliliter 11/28/2014 No longer Active cyanocobalamin (vit B-12) 1,000 mcg/mL injection solution RxNorm: 724825 Milliliter 10/31/2014 No longer Active cyanocobalamin (vit B-12) 1,000 mcg/mL injection solution RxNorm: 007551 1Milliliterdaily 10/03/2014 No longer Active cyanocobalamin (vit B-12) 1,000 mcg/mL injection solution RxNorm: 672328 Milliliter 08/30/2014 No longer Active cyanocobalamin (vit B-12) 1,000 mcg/mL injection solution RxNorm: 436376 Milliliter 08/02/2014 No longer Active cyanocobalamin (vit B-12) 1,000 mcg/mL injection kit RxNorm: 243875 Milliliter 07/04/2014 No longer Active cyanocobalamin (vit B-12) 1,000 mcg/mL injection solution RxNorm: 337599 Milliliter 05/30/2014 No longer Active cyanocobalamin (vit B-12) 1,000 mcg/mL injection solution RxNorm: 101052 Milliliter 05/02/2014 No longer Active cyanocobalamin (vit B-12) 1,000 mcg/mL injection solution RxNorm: 002308 Milliliter 04/05/2014 No longer Active cyanocobalamin (vit B-12) 1,000 mcg/mL injection solution RxNorm: 526318 Milliliter 03/07/2014 No longer Active cyanocobalamin (vit B-12) 1,000 mcg/mL injection solution RxNorm: 492542 1Milliliter 02/01/2014 No longer Active cyanocobalamin (vit B-12) 1,000 mcg/mL injection solution RxNorm: 562919 1Milliliter 12/30/2013 No longer Active cyanocobalamin (vit B-12) 1,000 mcg/mL injection solution RxNorm: 534812 Milliliter 11/30/2013 No longer Active cyanocobalamin (vit B-12) 1,000 mcg/mL injection solution RxNorm: 835867 1Milliliter 11/02/2013 No longer Active Vitamin B-12 1,000 mcg/mL injection solution RxNorm: 895836 Milliliter 08/31/2013 No longer Active Vitamin B-12 1,000 mcg/mL injection solution RxNorm: 568379 1Milliliter 08/04/2013 No longer Active Vitamin B-12 1,000 mcg/mL injection solution RxNorm: 885348 Milliliter 07/06/2013 No longer Active cyanocobalamin (vit B-12) 1,000 mcg/mL injection solution RxNorm: 438640 Milliliter 05/31/2013 No longer Active cyanocobalamin (vit B-12) 1,000 mcg/mL injection kit RxNorm: 689330 Milliliter 05/04/2013 No longer Active cyanocobalamin (vitamin B-12) 1,000 mcg/mL Injection RxNorm: 725916 Milliliter 03/30/2013 No longer Active cyanocobalamin (vitamin B-12) 1,000 mcg/mL Injection RxNorm: 468676 Milliliter 02/02/2013 No longer Active cyanocobalamin (vitamin B-12) 1,000 mcg/mL Injection RxNorm: 297945 Milliliter 12/29/2012 No longer Active cyanocobalamin (vitamin B-12) 1,000 mcg/mL Injection RxNorm: 528043 Milliliter 12/01/2012 No longer Active Vitamin B-12 1,000 mcg tablet RxNorm: 875125 Tablet 11/03/2012 No longer Active Vitamin B-12 1,000 mcg/mL Injection RxNorm: 611416 1Milliliter 09/30/2012 No longer Active Vitamin B-12 1,000 mcg/mL Injection RxNorm: 890709 1Milliliter 09/08/2012 No longer Active cyanocobalamin (vitamin B-12) 1,000 mcg/mL Injection RxNorm: 357468 1Milliliter 08/25/2012 No longer Active cyanocobalamin (vitamin B-12) 1,000 mcg/mL Injection RxNorm: 054929 1Milliliter 08/11/2012 No longer Active cyanocobalamin (vitamin B-12) 1,000 mcg/mL Injection RxNorm: 633434 1Milliliter 07/21/2012 No longer Active Vitamin B-12 1,000 mcg/mL Injection RxNorm: 299560 Milliliter 07/07/2012 No longer Active cyanocobalamin (vitamin B-12) 1,000 mcg/mL Injection RxNorm: 756139 1Milliliter 06/25/2012 No longer Active Vitamin B-12 1,000 mcg/mL Injection RxNorm: 021490 1Milliliter 06/09/2012 No longer Active Vitamin B-12 1,000 mcg/mL Injection RxNorm: 337418 Milliliter 05/25/2012 No longer Active Vitamin B-12 1,000 mcg/mL Injection RxNorm: 653162 Milliliter 05/12/2012 No longer Active Vitamin B-12 1,000 mcg/mL Injection RxNorm: 419275 Milliliter 04/20/2012 No longer Active Vitamin B-12 1,000 mcg/mL Injection RxNorm: 879214 Milliliter 04/07/2012 No longer Active Vitamin B-12 1,000 mcg/mL Injection RxNorm: 011541 Milliliter 03/10/2012 No longer Active Vitamin B-12 1,000 mcg/mL Injection RxNorm: 919298 Milliliter 02/18/2012 No longer Active Vitamin B-12 1,000 mcg/mL Injection RxNorm: 377491 Milliliter 02/04/2012 No longer Active Vitamin B-12 1,000 mcg/mL Injection RxNorm: 176925 Milliliter 01/21/2012 No longer Active Vitamin B-12 1,000 mcg/mL Injection RxNorm: 561822 Milliliter 01/07/2012 No longer Active Vitamin B-12 1,000 mcg/mL Injection RxNorm: 311108 Milliliter 12/17/2011 No longer Active Immunizations Vaccine [...] 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 03/30/2018 Vitamin B deficiency, unspecified ICD-10: E53.9 ICD-9: [...] Visit Reason For Visit Effective Dates Notes depression 11/05/2017 vaccination against influenza 2017 sores 12/18/2015 sores 12/04/2015 Annual Medicare Wellness Exam 10/11/2015 leg pain/sciatica 01/16/2015 right side skin lesion 08/02/2014 vaccination against influenza 05/04/2013 psychosis 03/02/2013 rash 09/30/2012 memory loss 07/07/2012 memory loss 01/07/2012 memory loss 12/17/2011 mental status change 12/10/2011 memory loss 11/26/2011 Results Observation Observation Code Item Item Code Result Date B12 Sae905 B12 637.00 pg/ml 07/31/2015 FOLIC ACID 0812376 FOLIC ACID >24.0 NG/ML 08/25/2012 VIT B 12 6260913 VIT B 12 1591 PG/ML 08/25/2012 HOMOCYS 8463183 HOMOCYS 6.8 UMOL/L 08/25/2012 TSH 4475044 TSH 1.386 uIU/ML 07/07/2012 CBC 8834758 WBC 6.4 10e9/L 07/07/2012 CBC 6116842 RBC 4.92 10e12/L 07/07/2012 CBC 9649219 HGB 15.0 g/dL 07/07/2012 CBC 5770926 HCT DET 43.3 % 07/07/2012 CBC 3029921 MCV 88.0 fL 07/07/2012 CBC 3514263 MCH 30.5 pg 07/07/2012 CBC 3717915 MCHC 34.6 g/dL 07/07/2012 CBC 0669120 PLT 180 10e9/L 07/07/2012 CBC 1501211 MPV 10.0 fL 07/07/2012 CBC 2813798 KENRICK % 59.0 % 07/07/2012 CBC 9509349 LY % 24.1 % 07/07/2012 CBC 3310427 MON % 12.5 % 07/07/2012 CBC 2268869 EOS % 4.1 % 07/07/2012 CBC 1519402 BASO % 0.3 % 07/07/2012 CBC 9723525 RDW 13.4 % 07/07/2012 CBC 2930273 ABS KENRICK 3.78 10e9/L 07/07/2012 CBC 8057340 ABS LYMPH 1.54 10e9/L 07/07/2012 CBC 8304174 ABS MONO 0.80 10e9/L 07/07/2012 CBC 1956999 ABS EOS 0.26 10e9/L 07/07/2012 CBC [id number] ABS BASO 0.02 10e9/L 07/07/2012 CBC 8414354 RDW-SD 42.9 fL 07/07/2012 CHEM 14 5474000 AST 29 U/L 07/07/2012 CHEM 14 7710999 ALT 29 U/L 07/07/2012 CHEM 14 9149463 BUN 9 MG/DL 07/07/2012 CHEM 14 4794639 ALBUMIN 4.1 GM/DL 07/07/2012 CHEM 14 6537247 CHLORIDE 103 MMOL/L 07/07/2012 CHEM 14 2450145 BILI TOT 0.3 MG/DL 07/07/2012 CHEM 14 0805491 ALK PHOS 88 U/L 07/07/2012 CHEM 14 [id number] SODIUM 141 MMOL/L 07/07/2012 CHEM 14 0129695 CREATININE 1.38 MG/DL 07/07/2012 CHEM 14 6100258 CALCIUM 9.3 MG/DL 07/07/2012 CHEM 14 4409889 POTASSIUM 3.7 MMOL/L 07/07/2012 CHEM 14 6552459 PROT TOT 6.4 GM/DL 07/07/2012 CHEM 14 8228939 GLUCOSE 76 MG/DL 07/07/2012 CHEM 14 5775971 BICARB 28 MMOL/L 07/07/2012 CHEM 14 4487454 ANION GAP 10 MMOL/L 07/07/2012 GFR CALC 9359708 GFR AA >60 ML/MIN 07/07/2012 GFR CALC 1463944 GFR NON-AA 52.0L ML/MIN 07/07/2012 B12 FOLAT 4322262 VIT B 12 211 PG/ML 12/10/2011 B12 FOLAT 6077866 FOLIC ACID 3.9 NG/ML 12/10/2011 GFR CALC 4993925 GFR AA >60 ML/MIN 12/10/2011 GFR CALC 2792786 GFR NON-AA >60 ML/MIN 12/10/2011 CPK 2986365 CPK 135 U/L 12/10/2011 CHEM 14 6651313 AST 62 U/L 12/10/2011 CHEM 14 3802090 ALT 114 U/L 12/10/2011 CHEM 14 7505259 BUN 10 MG/DL 12/10/2011 CHEM 14 1789158 ALBUMIN 3.7 GM/DL 12/10/2011 CHEM 14 4694089 CHLORIDE 103 MMOL/L 12/10/2011 CHEM 14 5086190 BILI TOT 0.5 MG/DL 12/10/2011 CHEM 14 1613054 ALK PHOS 129 U/L 12/10/2011 CHEM 14 6474761 SODIUM 140 MMOL/L 12/10/2011 CHEM 14 7394889 CREATININE 1.17 MG/DL 12/10/2011 CHEM 14 5335831 CALCIUM 8.8 MG/DL 12/10/2011 CHEM 14 9914956 POTASSIUM 3.4 MMOL/L 12/10/2011 CHEM 14 5561808 PROT TOT 5.8 GM/DL 12/10/2011 CHEM 14 5262416 GLUCOSE 84 MG/DL 12/10/2011 CHEM 14 8394126 BICARB 26 MMOL/L 12/10/2011 CHEM 14 0650647 ANION GAP 11 MMOL/L 12/10/2011 URINALYSIS NONAUTO W/O SCOPE 93537 Specific [place] 1.005 DateTime(Free Text in Aprima) URINALYSIS NONAUTO W/O SCOPE 74342 PH 6 DateTime(Free Text in Aprima) URINALYSIS NONAUTO W/O SCOPE 87348 GLUCOSE neg DateTime(Free Text in Aprima) URINALYSIS NONAUTO W/O SCOPE 31739 Protein neg DateTime(Free Text in Aprima) URINALYSIS NONAUTO W/O SCOPE 45813 Blood neg DateTime(Free Text in Aprima) URINALYSIS NONAUTO W/O SCOPE 33436 Bilirubin neg DateTime(Free Text in Aprima) URINALYSIS NONAUTO W/O SCOPE 58110 Ketones neg DateTime(Free Text in Aprima) URINALYSIS NONAUTO W/O SCOPE 07472 Urobilinogen neg DateTime(Free Text in Aprima) URINALYSIS NONAUTO W/O SCOPE 35598 Nitrite neg DateTime(Free Text in Aprima) URINALYSIS NONAUTO W/O SCOPE 82229 Leukocytes neg DateTime(Free Text in Aprima) URINALYSIS NONAUTO W/O SCOPE 96973 Specific [place] 1.010 DateTime(Free Text in Aprima) URINALYSIS NONAUTO W/O SCOPE 13352 PH 6.5 DateTime(Free Text in Aprima) URINALYSIS NONAUTO W/O SCOPE 18848 GLUCOSE neg DateTime(Free Text in Apr) URINALYSIS NONAUTO W/O SCOPE 05917 Protein neg DateTime(Free Text in Aprima) URINALYSIS NONAUTO W/O SCOPE 10009 Blood neg DateTime(Free Text in Aprima) URINALYSIS NONAUTO W/O SCOPE 19789 Bilirubin neg DateTime(Free Text in Apr) URINALYSIS NONAUTO W/O SCOPE 67932 Ketones neg DateTime(Free Text in Aprima) URINALYSIS NONAUTO W/O SCOPE 29137 Urobilinogen neg DateTime(Free Text in Aprima) URINALYSIS NONAUTO W/O SCOPE 78880 Nitrite neg DateTime(Free Text in ) URINALYSIS NONAUTO W/O SCOPE 56872 Leukocytes neg DateTime(Free Text in ) Review [...] three words at five minutes 11/05/2017 [facility] exam points Full Exam - [...] recall three words at five minutes 01/16/2015 [facility] exam points Full Exam - General 1994 [...] recall three words at five minutes 03/02/2013 [facility] exam points Full Exam - Dermatology Constitutional [...] recall three words at five minutes 07/07/2012 [facility] exam points 13/30 Full Exam - General 1995 Ears/Nose/Throat otoscopic [...] recall three words at five minutes 01/07/2012 [facility] exam points Full Exam - General 1994 [...] recall three words at five minutes 12/17/2011 [facility] exam points Full Exam - General 1994 [...] three words at five minutes 12/10/2011 [facility] exam points Full Exam - [...] recall three words at five minutes 11/26/2011 [facility] exam points Procedures Procedure Codes Date THER/PROPH/DIAG INJ SC/IM CPT-4: 86198 03/30/2018 VITAMIN B12 INJECTION CPT- 4: J3420 03/30/2018 THER/PROPH/DIAG INJ SC/IM CPT-4: 22797 03/03/2018 VITAMIN B12 INJECTION CPT- 4: J3420 03/03/2018 THER/PROPH/DIAG INJ SC/IM CPT-4: 88978 01/28/2018 VITAMIN B12 INJECTION CPT- 4: J3420 01/28/2018 THER/PROPH/DIAG INJ SC/IM CPT-4: 12108 12/29/2017 VITAMIN B12 INJECTION CPT- 4: J3420 12/29/2017 THER/PROPH/DIAG INJ SC/IM CPT-4: 79632 12/01/2017 VITAMIN B12 INJECTION CPT- 4: J3420 12/01/2017 VITAMIN B12 INJECTION CPT- 4: J3420 10/28/2017 THER/PROPH/DIAG INJ SC/IM CPT-4: 53606 10/28/2017 THER/PROPH/DIAG INJ SC/IM CPT-4: 57101 09/29/2017 VITAMIN B12 INJECTION CPT- 4: J3420 09/29/2017 THER/PROPH/DIAG INJ SC/IM CPT-4: 46413 09/02/2017 VITAMIN B12 INJECTION CPT- 4: J3420 09/02/2017 THER/PROPH/DIAG INJ SC/IM CPT-4: 67118 08/04/2017 VITAMIN B12 INJECTION CPT- 4: J3420 08/04/2017 THER/PROPH/DIAG INJ SC/IM CPT-4: 67681 07/01/2017 VITAMIN B12 INJECTION CPT- 4: J3420 07/01/2017 THER/PROPH/DIAG INJ SC/IM CPT-4: 76408 05/30/2017 VITAMIN B12 INJECTION CPT- 4: J3420 05/30/2017 THER/PROPH/DIAG INJ SC/IM CPT-4: 45997 2017 ADMIN INFLUENZA VIRUS VAC CPT-4: G0008 2017 TOBACCO-USE TUBE ROOM CASHIER 3-[address]: 181212910 CPT-4: G0436 2017 VITAMIN B12 INJECTION CPT- 4: J3420 2017 FLU VACC PRSV FREE INC ANTIG CPT-4: 44680 2017 TOBACCO-USE TUBE ROOM CASHIER 3-[address]: 303920086 CPT-4: G0436 03/31/2017 VITAMIN B12 INJECTION CPT- 4: J3420 03/31/2017 THER/PROPH/DIAG INJ SC/IM CPT-4: 53024 02/28/2017 VITAMIN B12 INJECTION CPT- 4: J3420 02/28/2017 THER/PROPH/DIAG INJ SC/IM CPT-4: 12905 02/03/2017 VITAMIN B12 INJECTION CPT- 4: J3420 02/03/2017 TOBACCO-USE TUBE ROOM CASHIER 3-[address]: 528414869 CPT-4: G0436 12/30/2016 THER/PROPH/DIAG INJ SC/IM CPT-4: 90313 12/30/2016 VITAMIN B12 INJECTION CPT- 4: J3420 12/30/2016 THER/PROPH/DIAG INJ SC/IM CPT-4: 04857 12/02/2016 VITAMIN B12 INJECTION CPT- 4: J3420 12/02/2016 THER/PROPH/DIAG INJ SC/IM CPT-4: 12383 10/29/2016 VITAMIN B12 INJECTION CPT- 4: J3420 10/29/2016 THER/PROPH/DIAG INJ SC/IM CPT-4: 78545 10/01/2016 VITAMIN B12 INJECTION CPT- 4: J3420 10/01/2016 TOBACCO-USE TUBE ROOM CASHIER 3-[address]: 827358226 CPT-4: G0436 09/02/2016 VITAMIN B12 INJECTION CPT- 4: J3420 09/02/2016 THER/PROPH/DIAG INJ SC/IM CPT-4: 81595 09/02/2016 THER/PROPH/DIAG INJ SC/IM CPT-4: 53567 08/05/2016 VITAMIN B12 INJECTION CPT- 4: J3420 08/05/2016 THER/PROPH/DIAG INJ SC/IM CPT-4: 69177 07/02/2016 VITAMIN B12 INJECTION CPT- 4: J3420 07/02/2016 VITAMIN B12 INJECTION CPT- 4: J3420 06/03/2016 THER/PROPH/DIAG INJ SC/IM CPT-4: 45757 06/03/2016 THER/PROPH/DIAG INJ SC/IM CPT-4: 05380 2016 VITAMIN B12 INJECTION CPT- 4: J3420 2016 THER/PROPH/DIAG INJ SC/IM CPT-4: 45874 04/01/2016 VITAMIN B12 INJECTION CPT- 4: J3420 04/01/2016 VITAMIN B12 INJECTION CPT- 4: J3420 03/05/2016 THER/PROPH/DIAG INJ SC/IM CPT-4: 74329 03/05/2016 TOBACCO-USE 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 ROOM 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 3-[address]: 546283393 CPT-4: G0436 01/29/2016 THER/PROPH/DIAG INJ SC/IM CPT-4: 11043 01/29/2016 VITAMIN B12 INJECTION CPT- 4: J3420 01/29/2016 THER/PROPH/DIAG INJ SC/IM CPT-4: 87203 01/02/2016 VITAMIN B12 INJECTION CPT- 4: J3420 01/02/2016 VITAMIN B12 INJECTION CPT- 4: J3420 12/04/2015 THER/PROPH/DIAG INJ SC/IM CPT-4: 96495 12/04/2015 THER/PROPH/DIAG INJ SC/IM CPT-4: 89796 10/30/2015 VITAMIN B12 INJECTION CPT- 4: J3420 10/30/2015 PPPS, SUBSEQ VISIT CPT- 4: G0439 10/11/2015 TOBACCO-USE TUBE ROOM CASHIER 3-[address]: 930856971 CPT-4: G0436 10/11/2015 TOBACCO-USE TUBE ROOM CASHIER 3-[address]: 884103640 CPT-4: G0436 10/02/2015 THER/PROPH/DIAG INJ SC/IM CPT-4: 36797 10/02/2015 VITAMIN B12 INJECTION CPT- 4: J3420 10/02/2015 THER/PROPH/DIAG INJ SC/IM CPT-4: 49712 08/29/2015 VITAMIN B12 INJECTION CPT- 4: J3420 08/29/2015 THER/PROPH/DIAG INJ SC/IM CPT-4: 50143 07/31/2015 VITAMIN B12 INJECTION CPT- 4: J3420 07/31/2015 THER/PROPH/DIAG INJ SC/IM CPT-4: 83621 07/03/2015 VITAMIN B12 INJECTION CPT- 4: J3420 07/03/2015 THER/PROPH/DIAG INJ SC/IM CPT-4: 65949 06/05/2015 VITAMIN B12 INJECTION CPT- 4: J3420 06/05/2015 VITAMIN B12 INJECTION CPT- 4: J3420 05/01/2015 THER/PROPH/DIAG INJ SC/IM CPT-4: 58272 05/01/2015 THER/PROPH/DIAG INJ SC/IM CPT-4: 61582 04/03/2015 VITAMIN B12 INJECTION CPT- 4: J3420 04/03/2015 THER/PROPH/DIAG INJ SC/IM CPT-4: 60307 02/28/2015 VITAMIN B12 INJECTION CPT- 4: J3420 02/28/2015 THER/PROPH/DIAG INJ SC/IM CPT-4: 17137 01/30/2015 VITAMIN B12 INJECTION CPT- 4: J3420 01/30/2015 VITAMIN B12 INJECTION CPT- 4: J3420 01/02/2015 THER/PROPH/DIAG INJ SC/IM CPT-4: 89889 01/02/2015 THER/PROPH/DIAG INJ SC/IM CPT-4: 36452 11/28/2014 VITAMIN B12 INJECTION CPT- 4: J3420 11/28/2014 THER/PROPH/DIAG INJ SC/IM CPT-4: 80662 10/31/2014 VITAMIN B12 INJECTION CPT- 4: J3420 10/31/2014 THER/PROPH/DIAG INJ SC/IM CPT-4: 70827 10/03/2014 VITAMIN B12 INJECTION CPT- 4: J3420 10/03/2014 THER/PROPH/DIAG INJ SC/IM CPT-4: 58252 08/30/2014 VITAMIN B12 INJECTION CPT- 4: J3420 08/30/2014 THER/PROPH/DIAG INJ SC/IM CPT-4: 78315 08/02/2014 VITAMIN B12 INJECTION CPT- 4: J3420 08/02/2014 THER/PROPH/DIAG INJ SC/IM CPT-4: 65436 07/04/2014 VITAMIN B12 INJECTION CPT- 4: J3420 07/04/2014 THER/PROPH/DIAG INJ SC/IM CPT-4: 24300 05/30/2014 VITAMIN B12 INJECTION CPT- 4: J3420 05/30/2014 THER/PROPH/DIAG INJ SC/IM CPT-4: 03047 05/02/2014 VITAMIN B12 INJECTION CPT- 4: J3420 05/02/2014 THER/PROPH/DIAG INJ SC/IM CPT-4: 19036 04/05/2014 THER/PROPH/DIAG INJ SC/IM CPT-4: 55854 03/07/2014 VITAMIN B12 INJECTION CPT- 4: J3420 03/07/2014 THER/PROPH/DIAG INJ SC/IM CPT-4: 56906 02/01/2014 VITAMIN B12 INJECTION CPT- 4: J3420 02/01/2014 VITAMIN B12 INJECTION CPT- 4: J3420 12/30/2013 THER/PROPH/DIAG INJ SC/IM CPT-4: 30844 12/30/2013 THER/PROPH/DIAG INJ SC/IM CPT-4: 34590 11/30/2013 VITAMIN B12 INJECTION CPT- 4: J3420 11/30/2013 THER/PROPH/DIAG INJ SC/IM CPT-4: 63600 11/02/2013 VITAMIN B12 INJECTION CPT- 4: J3420 11/02/2013 THER/PROPH/DIAG INJ SC/IM CPT-4: 54850 08/31/2013 VITAMIN B12 INJECTION CPT- 4: J3420 08/31/2013 THER/PROPH/DIAG INJ SC/IM CPT-4: 70952 08/04/2013 VITAMIN B12 INJECTION CPT- 4: J3420 08/04/2013 VITAMIN B12 INJECTION CPT- 4: J3420 07/06/2013 THER/PROPH/DIAG INJ SC/IM CPT-4: 93538 07/06/2013 THER/PROPH/DIAG INJ SC/IM CPT-4: 60684 05/31/2013 VITAMIN B12 INJECTION CPT- 4: J3420 05/31/2013 ADMIN INFLUENZA VIRUS VAC CPT-4: G0008 05/04/2013 FLULAVAL VACC, 3 YRS & >, IM CPT-4: Q2036 05/04/2013 THER/PROPH/DIAG INJ SC/IM CPT-4: 62606 05/04/2013 VITAMIN B12 INJECTION CPT- 4: J3420 05/04/2013 THER/PROPH/DIAG INJ SC/IM CPT-4: 97478 03/30/2013 VITAMIN B12 INJECTION CPT- 4: J3420 03/30/2013 THER/PROPH/DIAG INJ SC/IM CPT-4: 84889 03/02/2013 VITAMIN B12 INJECTION CPT- 4: J3420 03/02/2013 [id number] EST. PATIENT, LEVEL IV CPT-4: 89964 03/02/2013 THER/PROPH/DIAG INJ SC/IM CPT-4: 08467 02/02/2013 VITAMIN B12 INJECTION CPT- 4: J3420 02/02/2013 THER/PROPH/DIAG INJ SC/IM CPT-4: 98740 12/29/2012 VITAMIN B12 INJECTION CPT- 4: J3420 12/29/2012 TRIAMCINOLONE ACET INJ NOS CPT-4: J3301 12/01/2012 VITAMIN B12 INJECTION CPT- 4: J3420 12/01/2012 VITAMIN B12 INJECTION CPT- 4: J3420 11/03/2012 THER/PROPH/DIAG INJ SC/IM CPT-4: 95848 11/03/2012 THER/PROPH/DIAG INJ SC/IM CPT-4: 16417 09/30/2012 VITAMIN B12 INJECTION CPT- 4: J3420 09/30/2012 PRESCRIP TRANSMIT VIA ERX SY CPT-4: G8553 09/30/2012 VITAMIN B12 INJECTION CPT- 4: J3420 09/08/2012 THER/PROPH/DIAG INJ SC/IM CPT-4: 09494 09/08/2012 THER/PROPH/DIAG INJ SC/IM CPT-4: 77848 08/25/2012 ROUTINE VENIPUNCTURE CPT- 4: 81591 08/25/2012 VITAMIN B12 INJECTION CPT- 4: J3420 08/25/2012 THER/PROPH/DIAG INJ SC/IM CPT-4: 32947 08/11/2012 VITAMIN B12 INJECTION CPT- 4: J3420 08/11/2012 VITAMIN B12 INJECTION CPT- 4: J3420 07/21/2012 THER/PROPH/DIAG INJ SC/IM CPT-4: 04527 07/21/2012 THER/PROPH/DIAG INJ SC/IM CPT-4: 85196 07/07/2012 VITAMIN B12 INJECTION CPT- 4: J3420 07/07/2012 ROUTINE VENIPUNCTURE CPT- 4: 45855 07/07/2012 VITAMIN B12 INJECTION CPT- 4: J3420 06/25/2012 THER/PROPH/DIAG INJ SC/IM CPT-4: 63105 06/25/2012 VITAMIN B12 INJECTION CPT- 4: J3420 06/09/2012 THER/PROPH/DIAG INJ SC/IM CPT-4: 37504 06/09/2012 VITAMIN B12 INJECTION CPT- 4: J3420 05/25/2012 THER/PROPH/DIAG INJ SC/IM CPT-4: 77505 05/25/2012 VITAMIN B12 INJECTION CPT- 4: J3420 05/12/2012 THER/PROPH/DIAG INJ SC/IM CPT-4: 70105 05/12/2012 VITAMIN B12 INJECTION CPT- 4: J3420 04/20/2012 THER/PROPH/DIAG INJ SC/IM CPT-4: 11811 04/20/2012 THER/PROPH/DIAG INJ SC/IM CPT-4: 34767 04/07/2012 VITAMIN B12 INJECTION CPT- 4: J3420 04/07/2012 VITAMIN B12 INJECTION CPT- 4: J3420 03/10/2012 THER/PROPH/DIAG INJ SC/IM CPT-4: 24922 03/10/2012 VITAMIN B12 INJECTION CPT- 4: J3420 02/18/2012 THER/PROPH/DIAG INJ SC/IM CPT-4: 19231 02/18/2012 THER/PROPH/DIAG INJ SC/IM CPT-4: 77663 02/04/2012 VITAMIN B12 INJECTION CPT- 4: J3420 02/04/2012 THER/PROPH/DIAG INJ SC/IM CPT-4: 03798 01/21/2012 VITAMIN B12 INJECTION CPT- 4: J3420 01/21/2012 VITAMIN B12 INJECTION CPT- 4: J3420 01/07/2012 VITAMIN B12 INJECTION CPT- 4: J3420 12/17/2011 URINALYSIS NONAUTO W/O SCOPE CPT-4: 52153 12/10/2011 ROUTINE VENIPUNCTURE CPT- 4: 97787 12/10/2011 URINALYSIS NONAUTO W/O SCOPE CPT-4: 22210 11/26/2011 Vital Signs Date Vital 11/05/2017 Blood Pressure 1: 136/82 Code: 8480-6 BMI: 25.7 Code: 34552-1 Heart Rate 1: 78 bpm Height: 5'7" SpO2: 97% Weight: 164 lbs 10/28/2017 Height: 5'7" 12/18/2015 Blood Pressure 1: 140/68 Code: 8480-6 BMI: 25.7 Code: 91968-7 Heart Rate 1: 83 bpm Height: 5'7" SpO2: 95% Weight: 164 lbs 10/11/2015 Blood Pressure 1: 128/80 Code: 8480-6 BMI: 26.0 Code: 42592-6 Heart Rate 1: 80 bpm Height: 5'7" SpO2: 97% Waist Measure (cm): 89 cm Weight: 166 lbs 01/16/2015 Blood Pressure 1: 122/84 Code: 8480-6 BMI: 25.7 Code: 12186-1 Heart Rate 1: 68 bpm Height: 5'7" SpO2: 95% Weight: 164 lbs 08/02/2014 Blood Pressure 1: 140/86 Code: 8480-6 BMI: 25.1 Code: 58665-7 Heart Rate 1: 64 bpm Height: 5'7" Weight: 160 lbs 03/02/2013 Blood Pressure 1: 108/74 Code: 8480-6 BMI: 28.3 Code: 86116-4 Heart Rate 1: 80 bpm Height: 5'7" Weight: 181 lbs 09/30/2012 Blood Pressure 1: 126/74 Code: 8480-6 Heart Rate 1: 64 bpm Weight: 07/07/2012 Blood Pressure 1: 130/84 Code: 8480-6 BMI: 26.6 Code: 73332-6 Heart Rate 1: 80 bpm Height: 5'7" [...] 1: 110/68 Code: 8480-6 BMI: 25.7 Code: 44042-9 Heart Rate 1: 68 bpm Height: 5'7" [...] Annual Medicare Wellness Exam Handling Stress usually asnto effectively 10/11/2015 None Annual Medicare Wellness Exam [...] data Encounters Encounter Performer Location Codes Date 42629 EST. PATIENT, LEVEL III Diagnosis: Other schizophrenia[ICD10: F20.89] Diagnosis: Generalized anxiety disorder[ICD10: F41.1] Diagnosis: Major depressive disorder, single episode, moderate[ICD10: F32.1] [facility] CPT-4: 33851 11/05/2017 [id number] EST. PATIENT, LEVEL III Diagnosis: Encounter for follow-up examination after completed treatment for conditions other than malignant neoplasm[ICD10: Z09] [facility] CPT-4: 90606 12/18/2015 [id number] EST. PATIENT, LEVEL IV Diagnosis: Cellulitis of right lower limb[ICD10: L03.115] Diagnosis: Vitamin B12 deficiency anemia due to intrinsic factor deficiency[ICD10: D51.0] [facility] CPT-4: 63233 12/04/2015 ([id number]) Miscellaneous no charge Diagnosis: Vitamin B deficiency, unspecified[ICD10: E53.9] [facility] CPT-4: 27587 07/31/2015 ([id number]) 28603 EST. PATIENT, LEVEL IV Diagnosis: Schizophrenia[ICD9: 295.90] Diagnosis: DEPRESSIVE DISORDER NEC[ICD9: 311] Diagnosis: Medication dose changed[ICD9: V58.69] Diagnosis: Leg pain[ICD9: 729.5] [facility] CPT-4: 68607 01/16/2015 ([id number]) 04972 EST. PATIENT, LEVEL III Diagnosis: Rash[ICD9: 782.1] Camille Vitale MD, [facility] CPT-4: 47793 08/02/2014 ([id number]) Miscellaneous no charge Diagnosis: SCHIZO NOS, CHRN[ICD9: 295.92] Loren Vitale MD, [facility] CPT-4: 86207 05/03/2013 ([id number]) 42715 EST. PATIENT, LEVEL III Diagnosis: Rash[ICD9: 782.1] Diagnosis: B-COMPLEX DEFIC NEC[ICD9: 266.2] Loren Vitale MD, [facility] CPT-4: 96005 09/30/2012 ([id number]) 00540 EST. PATIENT, LEVEL IV Diagnosis: SCHIZO NOS, CHRN[ICD9: 295.92] Diagnosis: DEMEN NOS W/O BEHV DSTRB[ICD9: 294.20] Loren Vitale MD, [facility] CPT-4: 92347 07/07/2012 ([id number]) 44661 EST. PATIENT, LEVEL IV Diagnosis: DEMEN NOS W/O BEHV DSTRB[ICD9: 294.20] Diagnosis: SCHIZO NOS, CHRN[ICD9: 295.92] Diagnosis: Vitamin B 12 deficiency[ICD9: 266.2] Loren Vitale MD, [facility] CPT- 4: 53024 01/07/2012 ([id number]) 30653 EST. PATIENT, LEVEL IV Diagnosis: DEMEN NOS W/O BEHV DSTRB[ICD9: 294.20] Diagnosis: ALTERED MENTAL STATUS[ICD9: 780.97] Diagnosis: Myalgia[ICD9: 729.1] Loren Vitale MD, [facility] CPT-4: 56588 12/17/2011 ([id number]) 25829 EST. PATIENT, LEVEL IV Diagnosis: Orthostatic hypotension[ICD9: 458.0] Diagnosis: Hypokalemia[ICD9: 276.8] Diagnosis: DEMEN NOS W/O BEHV DSTRB[ICD9: 294.20] Diagnosis: SCHIZO NOS, CHRN[ICD9: 295.92] Diagnosis: ALTERED MENTAL STATUS[ICD9: 780.97] [facility] CPT-4: 47812 12/10/2011 OFFICE/OUTPATIENT VISIT NEW Diagnosis: Schizophrenia, chronic condition[ICD9: 295.92] Diagnosis: Encounter for long-term (current) use of other high-risk medications[ICD9: V58.69] [facility] CPT-4: 43914 11/26/2011 Plan of Care Planned Activity Notes Codes Status Date Appointment: Injection 03/30/2018 Patient Education: Patient Medication [...] medications. 11/05/2017 Appointment: [facility]udd [facility] [phone] [facility] [place] ([place] min) [facility] 11/05/2017 Patient Education: Patient Medication Summary [...] pain. 12/18/2015 Appointment: Susan Rudd WPtel[facility] [phone] [facility] [place] [place] (30 min) Complex 12/18/2015 Patient Education: Patient [...] pain. 12/04/2015 Appointment: Susan Rudd WPtel: [phone] [facility] [place] [place] (10 min) Simple 12/04/2015 Patient Education: Patient [...] paperwork for health care surrogate. 10/11/2015 Appointment: [facility] - Annual Wellness Visit 10/11/2015 Patient Education: [...] check labs. 01/16/2015 Appointment: Loren Vitale WPtel: [facility] (15 min) Moderate 01/16/2015 Patient Education: Patient Medication Summary Completed 01/16/2015 Appointment: Injection 01/02/2015 Patient Education: Patient Medication Summary Completed 01/02/2015 Patient Education: Patient Medication Summary Completed 11/28/2014 Patient Education: Patient Medication Summary Completed 10/31/2014 Patient Education: Patient Medication Summary Completed 10/03/2014 Patient Education: Patient Medication Summary Completed 08/30/2014 Visit Plan: Krij-lqxbqbgj-vvlpukkcnnopc cream to affected area twice daily as directed-call if rash does not completely resolve B12 deficiency-B12 injection today in the office 08/02/2014 Appointment: Camille Devi WPtel: [facility] [phone] Sick 08/02/2014 Patient Education: Patient Medication Summary Completed 08/02/2014 Patient Education: Patient Medication Summary Completed 07/04/2014 Patient Education: Patient Medication Summary Completed 05/30/2014 Appointment: [facility] [phone] [facility] [place] Injection 05/02/2014 Patient Education: Patient Medication Summary Completed 05/02/2014 Patient Education: Patient Medication Summary Completed 04/05/2014 Appointment: Camille Devi WPtel: [phone] [facility] [place] [place] [place] Injection 03/07/2014 Patient Education: Patient Medication Summary Completed 03/07/2014 Appointment: [facility] [phone] [facility] [place] Injection 02/01/2014 Patient Education: Patient Medication Summary Completed 02/01/2014 Appointment: [facility]el[facility] [phone] [facility] [place] Injection 12/30/2013 Patient Education: Patient Medication Summary Completed 12/30/2013 Appointment: [facility]Ptel: [phone] [facility] [place] In[place] 11/30/2013 Patient Education: Patient Medication Summary Completed 11/30/2013 Appointment: Camille Devi WPtel: [phone] [facility] [place] [place] Injection 11/02/2013 Patient Education: Patient Medication Summary Completed 11/02/2013 Appointment: [facility]ale [facility]Ptel: [phone] [facility] [place] Injection 09/28/2013 Appointment: [facility]ale [facility]Ptel: [phone] [facility] [place] Injection 08/31/2013 Patient Education: Patient Medication Summary Completed 08/31/2013 Patient Education: Patient Medication Summary Completed 08/04/2013 Appointment: Loren Vitale WPtel: [phone] [facility] [place] [facility] 08/03/2013 Appointment: Loren Vitale WPtel: [phone] [facility] [place] 07/06/2013 Patient Education: Patient Medication Summary Completed 07/06/2013 Appointment: Camille Devi WPtel: [phone] [facility] [place] [place] Injection 05/31/2013 Patient Education: Patient Medication Summary Completed 05/31/2013 Appointment: Camille Devi WPtel: [phone] [facility] [place] [place] [place] Injection 05/04/2013 Patient Education: Patient Medication [...] psychiatrist. 05/03/2013 Appointment: Loren Vitale WPtel: [phone] [facility] Other 05/03/2013 Patient Education: Patient Medication Summary Completed 05/03/2013 Appointment: Camille Devi WPtel: [phone] [facility] [place] [place] [place] Injection 03/30/2013 Patient Education: Patient Medication [...] is to see Dr. Treviño at [facility]. 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 03/02/2013 Appointment: Loren Vitale WPtel: [phone] [facility] [place] Follow up 03/02/2013 Patient Education: Patient Medication Summary Completed 03/02/2013 Appointment: Loren Vitale WPtel: [facility] [place] Injection 02/02/2013 Patient Education: Patient Medication Summary Completed 02/02/2013 Patient Education: Patient Medication Summary Completed 12/29/2012 Appointment: Camille Devi WPtel: [facility]5 [phone] [place] Injection 12/01/2012 Patient Education: Patient Medication Summary Completed 12/01/2012 Appointment: Loren Vitale WPtel: [phone] [facility] [place] Injection 11/03/2012 Patient Education: Patient Medication Summary Completed 11/03/2012 Visit Plan: Rash-discussed natural and expected course of this diagnosis and to alert me if symptoms do not follow expected course, or if any worse. RX sent to patient's pharmacy and instructed on use. B12 def-injection today in the office 09/30/2012 Appointment: Loren Vitale WPtel: [facility] [place] Other 09/30/2012 Patient Education: Patient Medication Summary Completed 09/30/2012 Patient Education: Patient Medication Summary Completed 09/08/2012 Appointment: Camille Devi WPtel: [facility] [place] [place] Injection 08/25/2012 Patient Education: Patient Medication Summary Completed 08/25/2012 Appointment: Loren Vitale WPtel: [phone] [facility] [place] 08/11/2012 Patient Education: Patient Medication Summary Completed 08/11/2012 Appointment: Loren Vitale WPtel: [phone] [facility] [place] Injection 07/21/2012 Patient Education: Patient Medication [...] is to see Dr. Treviño at [facility]. 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 07/07/2012 Appointment: Loren Vitale WPtel: [phone] [facility] [place] Follow up 07/07/2012 Patient Education: Patient Medication Summary Completed 07/07/2012 Patient Education: Patient Medication Summary Completed 06/25/2012 Patient Education: Patient Medication Summary Completed 06/09/2012 Patient Education: Patient Medication Summary Completed 05/25/2012 Appointment: [facility]el: [phone] [id number] [place] Injection 05/12/2012 Patient Education: Patient Medication Summary Completed 05/12/2012 Patient Education: Patient Medication Summary Completed 04/20/2012 Appointment: Cam[facility]i [facility]el[id number] [place] Injection 04/07/2012 Patient Education: Patient Medication Summary Completed 04/07/2012 Appointment: Camille Devi [facility]el[id number] [place] Injection 03/24/2012 Appointment: Camille Devi [facility]Ptel: [phone] [place] Injection 03/10/2012 Patient Education: Patient Medication Summary Completed 03/10/2012 Appointment: [facility]el[phone] [id number] [place] In[facility] 02/18/2012 Patient Education: Patient Medication Summary Completed 02/18/2012 Appointment: [facility]el: [phone] [id number] [place] Injection 02/04/2012 Patient Education: Patient Medication Summary Completed 02/04/2012 Appointment: [facility]el: [phone] [id number] [place] [facility] 01/21/2012 Patient Education: Patient Medication [...] at normal. 01/07/2012 Appointment: Loren Vitale WPtel: [facility] Other 01/07/2012 Patient Education: Patient Medication [...] ahold of Juan's psychiatrist who is in [place], but he is apparently on vacation to the [facility] and may not respond until he gets back in December. I think that Juan's medications need adjusted and that is the largest part of his new symptoms. 12/17/2011 Appointment: Loren Vitale WPtel: [facility] Other 12/17/2011 Patient Education: Patient Medication Summary [...] and speak with them about assistance. 12/10/2011 Visit Plan: Hypotension-discussed natural and expected [...] exam, and the assessment and plan. 12/10/2011 Appointment: Camille Devi WPtel: [phone] [facility] [place] [address] Work-in 12/10/2011 Patient Education: Patient Medication Summary [...] understanding. 11/26/2011 Appointment: Loren Vitale WPtel: [phone] [facility] [place] New Patient 11/26/2011 Patient Education: Patient [...] ahold of Juan's psychiatrist who is in [place], but he is apparently on vacation to the [facility] and may not respond until he gets [...] is to see Dr. Treviño at [facility]. 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 . Toho-kdhhkppk-pzklrusekegsq cream to affected area twice daily as [...] situational exposure. No change in current medications. Recommend SKIL worker to assist with daily [...] is to see Dr. Treviño at [facility]. B 12 deficiency and folate deficiency - [...] physical exam, and the assessment and plan. . Discussed with Rubén that Juan does [...]
[2018-12-22 16:10] LABS: ALANINE AMINOTRANSFERASE 16 U/L (0-55); ALBUMIN 3.8 GM/DL (3.2-4.5); ALKALINE PHOSPHATASE 81 U/L (40-136); AMMONIA 20 UMOL/L (11-32); AMYLASE 111 U/L (25-125); BILIRUBIN,TOTAL 0.6 MG/DL (0.1-1.0); BUN/CREATININE RATIO 13; CALCIUM 9.3 MG/DL (8.5-10.1); CARBON DIOXIDE 26 MMOL/L (21-32); CHLORIDE 97 MMOL/L (98-107); CREATININE SERUM 1.19 MG/DL (0.60-1.30); GFR ESTIMATED 60; GLUCOSE 108 MG/DL (70-105); LIPASE 17 U/L (8-78); MAGNESIUM 2.1 MG/DL (1.8-2.4); POTASSIUM 3.2 MMOL/L (3.6-5.0); SODIUM 136 MMOL/L (135-145); TOTAL PROTEIN 6.9 GM/DL (6.4-8.2)
[2018-12-22 16:12] LABS: INR 1.2 (0.8-1.4); PROTHROMBIN TIME PATIENT 15.7 SEC (12.2-14.7)
--- OUTSIDE RECORDS SUMMARY | 2018-12-22 16:12 | XMS REPORT | CCD ---
Author Author Loren Vitale MD, [facility] Address [address] [place] [address] Phone Care Team Providers Care Speech Coach Name Role Phone PP Unavailable CCM Unavailable Summary Purpose Interface Exchange Insurance Providers Payer name Policy type / Coverage type Covered libertarian ID Effective Begin Date Effective End Date WPS Medicare Part B Medicare Part B [id number] 2013 Unknown [place] [employer] Medicare Part B [id number] Unknown Family history Sister Diagnosis Age At Onset No Family Disease Entered N/A First cousin Diagnosis Age At Onset No Family Disease Entered N/A Mother Diagnosis Age At Onset Dementia Unknown Social History Social History Element Codes Description Effective Dates Marital status Unknown Single 11/26/[address]: 82677645 Current every day smoker 2 packs daily 11/26/[address]: 090182766 Never drinks alcohol 11/26/2011 Has the patient [...] ICD-10: E53.9 Active 01/28/2016 Unknown Encounter for immunization ICD-9: V03.9 ICD-10: [...] 266.2 ICD-10: E53.9 01/28/2016 Active Encounter for immunization ICD-9: V03.9 ICD-10: [...] (vit B-12) 1,000 mcg/mL injection solution RxNorm: 883075 Milliliter(s) Inj 08/04/2017 08/04/2017 Inactive cyanocobalamin (vit B-12) 1,000 mcg/mL injection solution RxNorm: 336210 1 Milliliter(s) Inj 07/01/2017 07/01/2017 Inactive cyanocobalamin (vit B-12) 1,000 mcg/mL injection solution RxNorm: 083954 Milliliter(s) Inj 05/30/2017 05/30/2017 Inactive cyanocobalamin (vit B-12) 1,000 mcg/mL injection solution RxNorm: 143457 1 Milliliter(s) Inj 2017 2017 Inactive Wellbutrin SR 100 mg tablet, 12 hr sustained-release RxNorm: 602211 TAKE ONE TABLET BY MOUTH EVERY NIGHT AT BEDTIME 04/23/2017 10/19/2017 Active cyanocobalamin (vit B-12) 1,000 mcg/mL injection solution RxNorm: 974321 Milliliter(s) Inj 03/31/2017 03/31/2017 Inactive cyanocobalamin (vit B-12) 1,000 mcg/mL injection solution RxNorm: 702668 Milliliter(s) Inj 02/28/2017 02/28/2017 Inactive cyanocobalamin (vit B-12) 1,000 mcg/mL injection solution RxNorm: 756585 Milliliter(s) Inj 02/03/2017 02/03/2017 Inactive cyanocobalamin (vit B-12) 1,000 mcg/mL injection solution RxNorm: 210240 1 Milliliter(s) Inj 12/30/2016 12/30/2016 Inactive cyanocobalamin (vit B-12) 1,000 mcg/mL injection solution RxNorm: 003660 1 Milliliter(s) Inj 12/02/2016 12/02/2016 Inactive Wellbutrin SR 100 mg tablet, 12 hr sustained-release RxNorm: 407209 TAKE ONE TABLET BY MOUTH EVERY NIGHT AT BEDTIME 10/30/2016 04/22/2017 Inactive cyanocobalamin (vit B-12) 1,000 mcg/mL injection solution RxNorm: 722357 Milliliter(s) Inj 10/29/2016 10/29/2016 Inactive cyanocobalamin (vit B-12) 1,000 mcg/mL injection solution RxNorm: 480044 1 Milliliter(s) Inj 10/01/2016 10/01/2016 Inactive cyanocobalamin (vit B-12) 1,000 mcg/mL injection solution RxNorm: 279640 Milliliter(s) Inj 09/02/2016 09/02/2016 Inactive cyanocobalamin (vit B-12) 1,000 mcg/mL injection solution RxNorm: 095738 Milliliter(s) Inj 08/05/2016 08/05/2016 Inactive cyanocobalamin (vit B-12) 1,000 mcg/mL injection solution RxNorm: 876643 1 Milliliter(s) Inj 07/02/2016 07/02/2016 Inactive cyanocobalamin (vit B-12) 1,000 mcg/mL injection solution RxNorm: 986584 Milliliter(s) Inj 06/03/2016 06/03/2016 Inactive cyanocobalamin (vit B-12) 1,000 mcg/mL injection solution RxNorm: 928219 Milliliter(s) Inj 2016 2016 Inactive Wellbutrin SR 100 mg tablet,sustained-release RxNorm: 524406 1 Tablet(s) PO QHS 04/01/2016 10/27/2016 Inactive cyanocobalamin (vit B-12) 1,000 mcg/mL injection solution RxNorm: 299762 Milliliter(s) Inj 04/01/2016 04/01/2016 Inactive cyanocobalamin (vit B-12) 1,000 mcg/mL injection solution RxNorm: 402630 1 Milliliter(s) Inj 03/05/2016 03/05/2016 Inactive cyanocobalamin (vit B-12) 1,000 mcg/mL injection solution RxNorm: 395871 Milliliter(s) Inj 01/29/2016 01/29/2016 Inactive cyanocobalamin (vit B-12) 1,000 mcg/mL injection solution RxNorm: 722398 Milliliter(s) Inj 01/02/2016 01/02/2016 Inactive mupirocin 2 % topical ointment RxNorm: 376319 1 Application TOP BID 12/04/2015 No Stop Date Active doxycycline hyclate 100 mg capsule RxNorm: 4230755 1 Capsule(s) PO BID 12/04/2015 12/13/2015 Inactive cyanocobalamin (vit B-12) 1,000 mcg/mL injection solution RxNorm: 856497 Milliliter(s) Inj 10/30/2015 10/30/2015 Inactive cyanocobalamin (B12)-cobamamide 5,000 mcg-100 mcg sublingual tablet RxNorm: 127494 Tablet(s) SL 10/02/2015 10/02/2015 Inactive Wellbutrin SR 100 mg tablet,sustained-release RxNorm: 494005 1 Tablet(s) PO QHS 09/08/2015 03/31/2016 Inactive cyanocobalamin (vit B-12) 1,000 mcg/mL injection solution RxNorm: 401976 Milliliter(s) Inj 08/29/2015 08/29/2015 Inactive cyanocobalamin (vit B-12) 1,000 mcg/mL injection solution RxNorm: 094192 Milliliter(s) Inj 07/31/2015 07/31/2015 Inactive cyanocobalamin (vit B-12) 1,000 mcg/mL injection solution RxNorm: 828065 Milliliter(s) Inj 06/05/2015 06/05/2015 Inactive cyanocobalamin (vit B-12) 1,000 mcg/mL injection solution RxNorm: 643054 Milliliter(s) Inj 05/01/2015 05/01/2015 Inactive cyanocobalamin (vit B-12) 1,000 mcg/mL injection solution RxNorm: 038479 Milliliter(s) Inj 04/03/2015 04/03/2015 Inactive cyanocobalamin (vit B-12) 1,000 mcg/mL injection solution RxNorm: 652676 Milliliter(s) Inj 02/28/2015 02/28/2015 Inactive cyanocobalamin (vit B-12) 1,000 mcg/mL injection solution RxNorm: 216748 Milliliter(s) Inj 01/30/2015 01/30/2015 Inactive Wellbutrin SR 100 mg tablet,sustained-release RxNorm: 970946 1 Tablet(s) PO QHS 01/16/2015 08/13/2015 Inactive cyanocobalamin (vit B-12) 1,000 mcg/mL injection solution RxNorm: 412759 1 Milliliter(s) Inj 01/02/2015 01/02/2015 Inactive cyanocobalamin (vit B-12) 1,000 mcg/mL injection solution RxNorm: 175380 1 Milliliter(s) Inj 11/28/2014 11/28/2014 Inactive cyanocobalamin (vit B-12) 1,000 mcg/mL injection solution RxNorm: 815017 Milliliter(s) Inj 10/31/2014 10/31/2014 Inactive [SAVINGS FOR NON-COVERED DRUGS -- BIN:599702, PCN: ASPROD1, Group: XXXXX, ID# [id number], Questions: . THIS IS NOT INSURANCE.] cyanocobalamin (vit B-12) 1,000 mcg/mL injection solution RxNorm: 823411 1 Milliliter(s) Inj daily 10/03/2014 10/03/2014 Inactive [SAVINGS FOR NON-COVERED DRUGS -- BIN:489219, PCN: ASPROD1, Group: XXXXX, ID# [id number], Questions: . THIS IS NOT INSURANCE.] cyanocobalamin (vit B-12) 1,000 mcg/mL injection solution RxNorm: 730724 Milliliter(s) Inj 08/30/2014 08/30/2014 Inactive [SAVINGS FOR NON-COVERED DRUGS -- BIN:709705, PCN: ASPROD1, Group: XXXXX, ID# [id number], Questions: . THIS IS NOT INSURANCE.] nystatin-triamcinolone 100,000 unit/g-0.1 % topical cream RxNorm: 6665203 1 Application TOP BID 08/02/2014 08/08/2014 Inactive [SAVINGS FOR UNINSURED PATIENTS -- BIN:426611, PCN: ASPROD1, Group: [id number], ID# [id number], Process claim through [employer], for questions: . THIS IS NOT INSURANCE.] cyanocobalamin (vit B-12) 1,000 mcg/mL injection solution RxNorm: 805159 Milliliter(s) Inj 08/02/2014 08/02/2014 Inactive [SAVINGS FOR UNINSURED PATIENTS -- BIN:807760, PCN: ASPROD1, Group: [id number], ID# [id number], Process claim through [employer], for questions: . THIS IS NOT INSURANCE.] cyanocobalamin (vit B-12) 1,000 mcg/mL injection kit RxNorm: 172304 Milliliter(s) Inj 07/04/2014 07/04/2014 Inactive [SAVINGS FOR UNINSURED PATIENTS -- BIN:430695, PCN: ASPROD1, Group: [id number], ID# [id number], Process claim through [employer], for questions: . THIS IS NOT INSURANCE.] cyanocobalamin (vit B-12) 1,000 mcg/mL injection solution RxNorm: 522366 Milliliter(s) Inj 05/30/2014 05/30/2014 Inactive cyanocobalamin (vit B-12) 1,000 mcg/mL injection solution RxNorm: 080289 Milliliter(s) Inj 05/02/2014 05/02/2014 Inactive cyanocobalamin (vit B-12) 1,000 mcg/mL injection solution RxNorm: 002991 Milliliter(s) Inj 04/05/2014 04/05/2014 Inactive cyanocobalamin (vit B-12) 1,000 mcg/mL injection solution RxNorm: 003785 Milliliter(s) Inj 03/07/2014 03/07/2014 Inactive cyanocobalamin (vit B-12) 1,000 mcg/mL injection solution RxNorm: 451864 1 Milliliter(s) Inj 02/01/2014 02/01/2014 Inactive cyanocobalamin (vit B-12) 1,000 mcg/mL injection solution RxNorm: 114557 1 Milliliter(s) Inj 12/30/2013 12/30/2013 Inactive [SAVINGS FOR UNINSURED PATIENTS -- BIN:081911, PCN: ASPROD1, Group: [id number], ID# [id number], Process claim through [employer], for questions: . THIS IS NOT INSURANCE.] cyanocobalamin (vit B-12) 1,000 mcg/mL injection solution RxNorm: 735281 Milliliter(s) Inj 11/30/2013 11/30/2013 Inactive cyanocobalamin (vit B-12) 1,000 mcg/mL injection solution RxNorm: 071327 1 Milliliter(s) Inj 11/02/2013 11/02/2013 Inactive Vitamin B-12 1,000 mcg/mL injection solution RxNorm: 447885 Milliliter(s) Inj 08/31/2013 08/31/2013 Inactive Vitamin B-12 1,000 mcg/mL injection solution RxNorm: 367229 1 Milliliter(s) Inj 08/04/2013 08/04/2013 Inactive Vitamin B-12 1,000 mcg/mL injection solution RxNorm: 554278 Milliliter(s) Inj 07/06/2013 07/06/2013 Inactive cyanocobalamin (vit B-12) 1,000 mcg/mL injection solution RxNorm: 620073 Milliliter(s) Inj 05/31/2013 05/31/2013 Inactive cyanocobalamin (vit B-12) 1,000 mcg/mL injection kit RxNorm: 950161 Milliliter(s) Inj 05/04/2013 05/04/2013 Inactive cyanocobalamin (vitamin B-12) 1,000 mcg/mL Injection RxNorm: 206968 Milliliter(s) Inj 03/30/2013 03/30/2013 Inactive cyanocobalamin (vitamin B-12) 1,000 mcg/mL Injection RxNorm: 128954 Milliliter(s) Inj 02/02/2013 02/02/2013 Inactive cyanocobalamin (vitamin B-12) 1,000 mcg/mL Injection RxNorm: 475673 Milliliter(s) Inj 12/29/2012 12/29/2012 Inactive cyanocobalamin (vitamin B-12) 1,000 mcg/mL Injection RxNorm: 120455 Milliliter(s) Inj 12/01/2012 12/01/2012 Inactive Vitamin B-12 1,000 mcg tablet RxNorm: 100889 Tablet(s) PO 11/03/2012 11/03/2012 Inactive Vitamin B-12 1,000 mcg/mL Injection RxNorm: 297123 1 Milliliter(s) Inj 09/30/2012 09/30/2012 Inactive triamcinolone acetonide 0.1 % Topical Cream RxNorm: 8884556 1 Application TOP BID 09/30/2012 10/13/2012 Inactive Vitamin B-12 1,000 mcg/mL Injection RxNorm: 897666 1 Milliliter(s) Inj 09/08/2012 09/08/2012 Inactive cyanocobalamin (vitamin B-12) 1,000 mcg/mL Injection RxNorm: 613198 1 Milliliter(s) Inj 08/25/2012 08/25/2012 Inactive cyanocobalamin (vitamin B-12) 1,000 mcg/mL Injection RxNorm: 295859 1 Milliliter(s) Inj 08/11/2012 08/11/2012 Inactive cyanocobalamin (vitamin B-12) 1,000 mcg/mL Injection RxNorm: 251115 1 Milliliter(s) Inj 07/21/2012 07/21/2012 Inactive Vitamin B-12 1,000 mcg/mL Injection RxNorm: 183547 Milliliter(s) Inj 07/07/2012 07/07/2012 Inactive cyanocobalamin (vitamin B-12) 1,000 mcg/mL Injection RxNorm: 044837 1 Milliliter(s) Inj 06/25/2012 06/25/2012 Inactive Vitamin B-12 1,000 mcg/mL Injection RxNorm: 444250 1 Milliliter(s) Inj 06/09/2012 06/09/2012 Inactive Vitamin B-12 1,000 mcg/mL Injection RxNorm: 274142 Milliliter(s) Inj 05/25/2012 05/25/2012 Inactive Vitamin B-12 1,000 mcg/mL Injection RxNorm: 545401 Milliliter(s) Inj 05/12/2012 05/12/2012 Inactive Vitamin B-12 1,000 mcg/mL Injection RxNorm: 554061 Milliliter(s) Inj 04/20/2012 04/20/2012 Inactive Vitamin B-12 1,000 mcg/mL Injection RxNorm: 112066 Milliliter(s) Inj 04/07/2012 04/07/2012 Inactive Vitamin B-12 1,000 mcg/mL Injection RxNorm: 575307 Milliliter(s) Inj 03/10/2012 03/10/2012 Inactive Vitamin B-12 1,000 mcg/mL Injection RxNorm: 734656 Milliliter(s) Inj 02/18/2012 02/18/2012 Inactive Vitamin B-12 1,000 mcg/mL Injection RxNorm: 440483 Milliliter(s) Inj 02/04/2012 02/04/2012 Inactive Vitamin B-12 1,000 mcg/mL Injection RxNorm: 414235 Milliliter(s) Inj 01/21/2012 01/21/2012 Inactive Vitamin B-12 1,000 mcg/mL Injection RxNorm: 492275 Milliliter(s) Inj 01/07/2012 01/07/2012 Inactive Vitamin B-12 1,000 mcg/mL Injection RxNorm: 516825 Milliliter(s) Inj 12/17/2011 12/17/2011 Inactive KCL 10 meq RxNorm: 1 PO daily 12/12/2011 12/16/2011 Inactive Vitamin B-12 1,000 mcg/mL Injection RxNorm: 054824 1 Milliliter(s) Inj monthly No Start Date Active Wellbutrin SR 200 mg Tab RxNorm: 873067 1 Tablet(s) PO daily No Start Date Active Anafranil 25 mg Cap RxNorm: 562172 1 Capsule(s) PO daily No Start Date Active Stelazine 5 mg Tab RxNorm: 426360 1 Tablet(s) PO BID No Start Date Active clonazepam 1 mg Tab RxNorm: 706452 1 Tablet(s) PO BID No Start Date Active risperidone 3 mg Tab RxNorm: 344677 Tablet(s) PO No Start Date Active 2 on even days 3 on odd days Cogentin 1 mg Tab RxNorm: 693116 1 Tablet(s) PO TID No Start Date Active Medication Administered Medication Codes Instructions Start Date Status cyanocobalamin (vit B-12) 1,000 mcg/mL injection solution RxNorm: 794747 Milliliter 08/04/2017 Active cyanocobalamin (vit B-12) 1,000 mcg/mL injection solution RxNorm: 561183 1Milliliter 07/01/2017 No longer Active cyanocobalamin (vit B-12) 1,000 mcg/mL injection solution RxNorm: 198305 Milliliter 05/30/2017 No longer Active cyanocobalamin (vit B-12) 1,000 mcg/mL injection solution RxNorm: 055874 1Milliliter 2017 No longer Active cyanocobalamin (vit B-12) 1,000 mcg/mL injection solution RxNorm: 555127 Milliliter 03/31/2017 No longer Active cyanocobalamin (vit B-12) 1,000 mcg/mL injection solution RxNorm: 410496 Milliliter 02/28/2017 No longer Active cyanocobalamin (vit B-12) 1,000 mcg/mL injection solution RxNorm: 360218 Milliliter 02/03/2017 No longer Active cyanocobalamin (vit B-12) 1,000 mcg/mL injection solution RxNorm: 069680 1Milliliter 12/30/2016 No longer Active cyanocobalamin (vit B-12) 1,000 mcg/mL injection solution RxNorm: 485065 1Milliliter 12/02/2016 No longer Active cyanocobalamin (vit B-12) 1,000 mcg/mL injection solution RxNorm: 335838 Milliliter 10/29/2016 No longer Active cyanocobalamin (vit B-12) 1,000 mcg/mL injection solution RxNorm: 489454 1Milliliter 10/01/2016 No longer Active cyanocobalamin (vit B-12) 1,000 mcg/mL injection solution RxNorm: 634764 Milliliter 09/02/2016 No longer Active cyanocobalamin (vit B-12) 1,000 mcg/mL injection solution RxNorm: 231530 Milliliter 08/05/2016 No longer Active cyanocobalamin (vit B-12) 1,000 mcg/mL injection solution RxNorm: 283481 1Milliliter 07/02/2016 No longer Active cyanocobalamin (vit B-12) 1,000 mcg/mL injection solution RxNorm: 898451 Milliliter 06/03/2016 No longer Active cyanocobalamin (vit B-12) 1,000 mcg/mL injection solution RxNorm: 236446 Milliliter 2016 No longer Active cyanocobalamin (vit B-12) 1,000 mcg/mL injection solution RxNorm: 066885 Milliliter 04/01/2016 No longer Active cyanocobalamin (vit B-12) 1,000 mcg/mL injection solution RxNorm: 091181 1Milliliter 03/05/2016 No longer Active cyanocobalamin (vit B-12) 1,000 mcg/mL injection solution RxNorm: 393897 Milliliter 01/29/2016 No longer Active cyanocobalamin (vit B-12) 1,000 mcg/mL injection solution RxNorm: 848584 Milliliter 01/02/2016 No longer Active cyanocobalamin (vit B-12) 1,000 mcg/mL injection solution RxNorm: 945170 Milliliter 10/30/2015 No longer Active cyanocobalamin (B12)-cobamamide 5,000 mcg-100 mcg sublingual tablet RxNorm: 543655 Tablet 10/02/2015 No longer Active cyanocobalamin (vit B-12) 1,000 mcg/mL injection solution RxNorm: 002178 Milliliter 08/29/2015 No longer Active cyanocobalamin (vit B-12) 1,000 mcg/mL injection solution RxNorm: 390213 Milliliter 07/31/2015 No longer Active cyanocobalamin (vit B-12) 1,000 mcg/mL injection solution RxNorm: 298102 Milliliter 06/05/2015 No longer Active cyanocobalamin (vit B-12) 1,000 mcg/mL injection solution RxNorm: 933841 Milliliter 05/01/2015 No longer Active cyanocobalamin (vit B-12) 1,000 mcg/mL injection solution RxNorm: 424872 Milliliter 04/03/2015 No longer Active cyanocobalamin (vit B-12) 1,000 mcg/mL injection solution RxNorm: 968728 Milliliter 02/28/2015 No longer Active cyanocobalamin (vit B-12) 1,000 mcg/mL injection solution RxNorm: 517042 Milliliter 01/30/2015 No longer Active cyanocobalamin (vit B-12) 1,000 mcg/mL injection solution RxNorm: 102845 1Milliliter 01/02/2015 No longer Active cyanocobalamin (vit B-12) 1,000 mcg/mL injection solution RxNorm: 476607 1Milliliter 11/28/2014 No longer Active cyanocobalamin (vit B-12) 1,000 mcg/mL injection solution RxNorm: 819349 Milliliter 10/31/2014 No longer Active cyanocobalamin (vit B-12) 1,000 mcg/mL injection solution RxNorm: 530255 1Milliliterdaily 10/03/2014 No longer Active cyanocobalamin (vit B-12) 1,000 mcg/mL injection solution RxNorm: 915003 Milliliter 08/30/2014 No longer Active cyanocobalamin (vit B-12) 1,000 mcg/mL injection solution RxNorm: 680397 Milliliter 08/02/2014 No longer Active cyanocobalamin (vit B-12) 1,000 mcg/mL injection kit RxNorm: 811003 Milliliter 07/04/2014 No longer Active cyanocobalamin (vit B-12) 1,000 mcg/mL injection solution RxNorm: 756401 Milliliter 05/30/2014 No longer Active cyanocobalamin (vit B-12) 1,000 mcg/mL injection solution RxNorm: 772655 Milliliter 05/02/2014 No longer Active cyanocobalamin (vit B-12) 1,000 mcg/mL injection solution RxNorm: 637116 Milliliter 04/05/2014 No longer Active cyanocobalamin (vit B-12) 1,000 mcg/mL injection solution RxNorm: 767441 Milliliter 03/07/2014 No longer Active cyanocobalamin (vit B-12) 1,000 mcg/mL injection solution RxNorm: 124007 1Milliliter 02/01/2014 No longer Active cyanocobalamin (vit B-12) 1,000 mcg/mL injection solution RxNorm: 190409 1Milliliter 12/30/2013 No longer Active cyanocobalamin (vit B-12) 1,000 mcg/mL injection solution RxNorm: 351402 Milliliter 11/30/2013 No longer Active cyanocobalamin (vit B-12) 1,000 mcg/mL injection solution RxNorm: 815992 1Milliliter 11/02/2013 No longer Active Vitamin B-12 1,000 mcg/mL injection solution RxNorm: 836729 Milliliter 08/31/2013 No longer Active Vitamin B-12 1,000 mcg/mL injection solution RxNorm: 300730 1Milliliter 08/04/2013 No longer Active Vitamin B-12 1,000 mcg/mL injection solution RxNorm: 784548 Milliliter 07/06/2013 No longer Active cyanocobalamin (vit B-12) 1,000 mcg/mL injection solution RxNorm: 758432 Milliliter 05/31/2013 No longer Active cyanocobalamin (vit B-12) 1,000 mcg/mL injection kit RxNorm: 593533 Milliliter 05/04/2013 No longer Active cyanocobalamin (vitamin B-12) 1,000 mcg/mL Injection RxNorm: 333848 Milliliter 03/30/2013 No longer Active cyanocobalamin (vitamin B-12) 1,000 mcg/mL Injection RxNorm: 550056 Milliliter 02/02/2013 No longer Active cyanocobalamin (vitamin B-12) 1,000 mcg/mL Injection RxNorm: 674244 Milliliter 12/29/2012 No longer Active cyanocobalamin (vitamin B-12) 1,000 mcg/mL Injection RxNorm: 924073 Milliliter 12/01/2012 No longer Active Vitamin B-12 1,000 mcg tablet RxNorm: 823227 Tablet 11/03/2012 No longer Active Vitamin B-12 1,000 mcg/mL Injection RxNorm: 630929 1Milliliter 09/30/2012 No longer Active Vitamin B-12 1,000 mcg/mL Injection RxNorm: 761739 1Milliliter 09/08/2012 No longer Active cyanocobalamin (vitamin B-12) 1,000 mcg/mL Injection RxNorm: 204904 1Milliliter 08/25/2012 No longer Active cyanocobalamin (vitamin B-12) 1,000 mcg/mL Injection RxNorm: 700233 1Milliliter 08/11/2012 No longer Active cyanocobalamin (vitamin B-12) 1,000 mcg/mL Injection RxNorm: 305526 1Milliliter 07/21/2012 No longer Active Vitamin B-12 1,000 mcg/mL Injection RxNorm: 690916 Milliliter 07/07/2012 No longer Active cyanocobalamin (vitamin B-12) 1,000 mcg/mL Injection RxNorm: 482045 1Milliliter 06/25/2012 No longer Active Vitamin B-12 1,000 mcg/mL Injection RxNorm: 551980 1Milliliter 06/09/2012 No longer Active Vitamin B-12 1,000 mcg/mL Injection RxNorm: 712687 Milliliter 05/25/2012 No longer Active Vitamin B-12 1,000 mcg/mL Injection RxNorm: 329894 Milliliter 05/12/2012 No longer Active Vitamin B-12 1,000 mcg/mL Injection RxNorm: 344243 Milliliter 04/20/2012 No longer Active Vitamin B-12 1,000 mcg/mL Injection RxNorm: 943033 Milliliter 04/07/2012 No longer Active Vitamin B-12 1,000 mcg/mL Injection RxNorm: 512444 Milliliter 03/10/2012 No longer Active Vitamin B-12 1,000 mcg/mL Injection RxNorm: 669394 Milliliter 02/18/2012 No longer Active Vitamin B-12 1,000 mcg/mL Injection RxNorm: 547616 Milliliter 02/04/2012 No longer Active Vitamin B-12 1,000 mcg/mL Injection RxNorm: 936213 Milliliter 01/21/2012 No longer Active Vitamin B-12 1,000 mcg/mL Injection RxNorm: 541974 Milliliter 01/07/2012 No longer Active Vitamin B-12 1,000 mcg/mL Injection RxNorm: 835528 Milliliter 12/17/2011 No longer Active Immunizations Vaccine Codes Date Status Influenza CVX: 141 2017 completed Influenza CVX: 141 05/01/2016 completed Pneumococcal CVX: 33 11/21/2015 completed PPD Unknown 07/31/2015 completed Influenza CVX: 141 05/04/2013 completed PPD Unknown 05/03/2013 completed Pneumococcal CVX: 33 11/04/2012 completed Tetanus/Diptheria CVX: 28 11/04/2012 completed Assessments Condition Codes Effective Dates Other vitamin B12 deficiency anemias ICD-10: D51.8 ICD-9: 281.1 08/04/2017 Vitamin B12 deficiency anemia due to 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 07/01/2017 Vitamin B deficiency, unspecified ICD-10: E53.9 ICD-9: 266.2 05/30/2017 Encounter for immunization ICD-10: Z23 ICD-9: V03.9 [...] Visit Effective Dates Notes vaccination against influenza 2017 sores 12/18/2015 sores 12/04/2015 Annual Medicare Wellness Exam 10/11/2015 leg pain/sciatica 01/16/2015 right side skin lesion 08/02/2014 vaccination against influenza 05/04/2013 psychosis 03/02/2013 rash 09/30/2012 memory loss 07/07/2012 memory loss 01/07/2012 memory loss 12/17/2011 mental status change 12/10/2011 memory loss 11/26/2011 Results Observation Observation Code Item Item Code Result Date B12 Hlj249 B12 637.00 pg/ml 07/31/2015 FOLIC ACID 5343420 FOLIC ACID >24.0 NG/ML 08/25/2012 VIT B 12 3391232 VIT B 12 1591 PG/ML 08/25/2012 HOMOCYS 3305928 HOMOCYS 6.8 UMOL/L 08/25/2012 TSH 3160315 TSH 1.386 uIU/ML 07/07/2012 CBC 5787192 WBC 6.4 10e9/L 07/07/2012 CBC 2687705 RBC 4.92 10e12/L 07/07/2012 CBC 1673147 HGB 15.0 g/dL 07/07/2012 CBC 9807299 HCT DET 43.3 % 07/07/2012 CBC 1101459 MCV 88.0 fL 07/07/2012 CBC 5749912 MCH 30.5 pg 07/07/2012 CBC 2959843 MCHC 34.6 g/dL 07/07/2012 CBC 0323204 PLT 180 10e9/L 07/07/2012 CBC 9065466 MPV 10.0 fL 07/07/2012 CBC 0202432 KENRICK % 59.0 % 07/07/2012 CBC 9967926 LY % 24.1 % 07/07/2012 CBC 4949430 MON % 12.5 % 07/07/2012 CBC 5830457 EOS % 4.1 % 07/07/2012 CBC 0790609 BASO % 0.3 % 07/07/2012 CBC 7021529 RDW 13.4 % 07/07/2012 CBC 7087358 ABS KENRICK 3.78 10e9/L 07/07/2012 CBC 0268227 ABS LYMPH 1.54 10e9/L 07/07/2012 CBC 1879172 ABS MONO 0.80 10e9/L 07/07/2012 CBC 8416630 ABS EOS 0.26 10e9/L 07/07/2012 CBC 0224623 ABS BASO 0.02 10e9/L 07/07/2012 CBC 7276886 RDW-SD 42.9 fL 07/07/2012 CHEM 14 9940044 AST 29 U/L 07/07/2012 CHEM 14 8683191 ALT 29 U/L 07/07/2012 CHEM 14 3115555 BUN 9 MG/DL 07/07/2012 CHEM 14 5436753 ALBUMIN 4.1 GM/DL 07/07/2012 CHEM 14 8459513 CHLORIDE 103 MMOL/L 07/07/2012 CHEM 14 9542371 BILI TOT 0.3 MG/DL 07/07/2012 CHEM 14 5563795 ALK PHOS 88 U/L 07/07/2012 CHEM 14 6578856 SODIUM 141 MMOL/L 07/07/2012 CHEM 14 3556658 CREATININE 1.38 MG/DL 07/07/2012 CHEM 14 0076794 CALCIUM 9.3 MG/DL 07/07/2012 CHEM 14 9345287 POTASSIUM 3.7 MMOL/L 07/07/2012 CHEM 14 2555573 PROT TOT 6.4 GM/DL 07/07/2012 CHEM 14 3664883 GLUCOSE 76 MG/DL 07/07/2012 CHEM 14 9706473 BICARB 28 MMOL/L 07/07/2012 CHEM 14 2991311 ANION GAP 10 MMOL/L 07/07/2012 GFR CALC 8915358 GFR AA >60 ML/MIN 07/07/2012 GFR CALC 6148453 GFR NON-AA 52.0L ML/MIN 07/07/2012 B12 FOLAT 6099384 VIT B 12 211 PG/ML 12/10/2011 B12 FOLAT 8334775 FOLIC ACID 3.9 NG/ML 12/10/2011 GFR CALC 7301735 GFR AA >60 ML/MIN 12/10/2011 GFR CALC 1310868 GFR NON-AA >60 ML/MIN 12/10/2011 CPK 7400151 CPK 135 U/L 12/10/2011 CHEM 14 4150041 AST 62 U/L 12/10/2011 CHEM 14 0036830 ALT 114 U/L 12/10/2011 CHEM 14 4906643 BUN 10 MG/DL 12/10/2011 CHEM 14 8260070 ALBUMIN 3.7 GM/DL 12/10/2011 CHEM 14 3614762 CHLORIDE 103 MMOL/L 12/10/2011 CHEM 14 1869747 BILI TOT 0.5 MG/DL 12/10/2011 CHEM 14 8796948 ALK PHOS 129 U/L 12/10/2011 CHEM 14 1462523 SODIUM 140 MMOL/L 12/10/2011 CHEM 14 1876180 CREATININE 1.17 MG/DL 12/10/2011 CHEM 14 5874229 CALCIUM 8.8 MG/DL 12/10/2011 CHEM 14 0438858 POTASSIUM 3.4 MMOL/L 12/10/2011 CHEM 14 7965855 PROT TOT 5.8 GM/DL 12/10/2011 CHEM 14 5596289 GLUCOSE 84 MG/DL 12/10/2011 CHEM 14 7707891 BICARB 26 MMOL/L 12/10/2011 CHEM 14 7500218 ANION GAP 11 MMOL/L 12/10/2011 URINALYSIS NONAUTO W/O SCOPE 32839 Specific [place] 1.005 DateTime(Free Text in Aprima) URINALYSIS NONAUTO W/O SCOPE 89855 PH 6 DateTime(Free Text in Aprima) URINALYSIS NONAUTO W/O SCOPE 04328 GLUCOSE neg DateTime(Free Text in Aprima) URINALYSIS NONAUTO W/O SCOPE 97049 Protein neg DateTime(Free Text in Aprima) URINALYSIS NONAUTO W/O SCOPE 96375 Blood neg DateTime(Free Text in Aprima) URINALYSIS NONAUTO W/O SCOPE 72489 Bilirubin neg DateTime(Free Text in Aprima) URINALYSIS NONAUTO W/O SCOPE 40963 Ketones neg DateTime(Free Text in Aprima) URINALYSIS NONAUTO W/O SCOPE 41466 Urobilinogen neg DateTime(Free Text in Aprima) URINALYSIS NONAUTO W/O SCOPE 35592 Nitrite neg DateTime(Free Text in Aprima) URINALYSIS NONAUTO W/O SCOPE 82887 Leukocytes neg DateTime(Free Text in Aprima) URINALYSIS NONAUTO W/O SCOPE 30950 Specific [place] 1.010 DateTime(Free Text in Aprima) URINALYSIS NONAUTO W/O SCOPE 61502 PH 6.5 DateTime(Free Text in Aprima) URINALYSIS NONAUTO W/O SCOPE 58617 GLUCOSE neg DateTime(Free Text in Aprima) URINALYSIS NONAUTO W/O SCOPE 35592 Protein neg DateTime(Free Text in Aprima) URINALYSIS NONAUTO W/O SCOPE 25303 Blood neg DateTime(Free Text in Aprima) URINALYSIS NONAUTO W/O SCOPE 41007 Bilirubin neg DateTime(Free Text in Aprima) URINALYSIS NONAUTO W/O SCOPE 03540 Ketones neg DateTime(Free Text in Aprima) URINALYSIS NONAUTO W/O SCOPE 42314 Urobilinogen neg DateTime(Free Text in Aprima) URINALYSIS NONAUTO W/O SCOPE 10478 Nitrite neg DateTime(Free Text in Aprima) URINALYSIS NONAUTO W/O SCOPE 73121 Leukocytes neg DateTime(Free Text in ) Review [...] recall three words at five minutes 01/16/2015 [facility] exam points Full Exam - General [...] recall three words at five minutes 03/02/2013 [facility] exam points Full Exam - Dermatology [...] digits 07/07/2012 None Full Exam - General 1994 Psychiatric cognition/memory Immediate memory: unable to recall three words at five minutes 07/07/2012 [facility] exam points Full Exam - General [...] congruent 01/07/2012 None Full Exam - General 1995 [...] recall three words at five minutes 01/07/2012 [facility] exam points Full Exam - General [...] recall three words at five minutes 12/17/2011 [facility] exam points 30 Full Exam - General [...] at five minutes 12/10/2011 [facility] exam points Full [...] large 11/26/2011 None Full Exam - General 1995 Ears/Nose/Throat oral cavity/pharynx/larynx Hard palate: a normal [...] recall three words at five minutes 11/26/2011 [facility] exam points Procedures Procedure Codes Date THER/PROPH/DIAG INJ SC/IM CPT-4: 37408 08/04/2017 VITAMIN B12 INJECTION CPT- 4: J3420 08/04/2017 THER/PROPH/DIAG INJ SC/IM CPT-4: 24202 07/01/2017 VITAMIN B12 INJECTION CPT- 4: J3420 07/01/2017 THER/PROPH/DIAG INJ SC/IM CPT-4: 72987 05/30/2017 VITAMIN B12 INJECTION CPT- 4: J3420 05/30/2017 THER/PROPH/DIAG INJ SC/IM CPT-4: 77631 2017 ADMIN INFLUENZA VIRUS VAC CPT-4: G0008 2017 TOBACCO-USE RISK ANALYST 3-[address]: 604727748 CPT-4: G0436 2017 VITAMIN B12 INJECTION CPT- 4: J3420 2017 FLU VACC PRSV FREE INC ANTIG CPT-4: 21984 2017 TOBACCO-USE RISK ANALYST 3-[address]: 910289946 CPT-4: G0436 03/31/2017 VITAMIN B12 INJECTION CPT- 4: J3420 03/31/2017 THER/PROPH/DIAG INJ SC/IM CPT-4: 62552 02/28/2017 VITAMIN B12 INJECTION CPT- 4: J3420 02/28/2017 THER/PROPH/DIAG INJ SC/IM CPT-4: 65272 02/03/2017 VITAMIN B12 INJECTION CPT- 4: J3420 02/03/2017 TOBACCO-USE RISK ANALYST 3-[address]: 203392490 CPT-4: G0436 12/30/2016 THER/PROPH/DIAG INJ SC/IM CPT-4: 47532 12/30/2016 VITAMIN B12 INJECTION CPT- 4: J3420 12/30/2016 THER/PROPH/DIAG INJ SC/IM CPT-4: 36959 12/02/2016 VITAMIN B12 INJECTION CPT- 4: J3420 12/02/2016 THER/PROPH/DIAG INJ SC/IM CPT-4: 99639 10/29/2016 VITAMIN B12 INJECTION CPT- 4: J3420 10/29/2016 THER/PROPH/DIAG INJ SC/IM CPT-4: 56752 10/01/2016 VITAMIN B12 INJECTION CPT- 4: J3420 10/01/2016 TOBACCO-USE RISK ANALYST 3-[address]: 611290793 CPT-4: G0436 09/02/2016 VITAMIN B12 INJECTION CPT- 4: J3420 09/02/2016 THER/PROPH/DIAG INJ SC/IM CPT-4: 93125 09/02/2016 THER/PROPH/DIAG INJ SC/IM CPT-4: 09903 08/05/2016 VITAMIN B12 INJECTION CPT- 4: J3420 08/05/2016 THER/PROPH/DIAG INJ SC/IM CPT-4: 24784 07/02/2016 VITAMIN B12 INJECTION CPT- 4: J3420 07/02/2016 VITAMIN B12 INJECTION CPT- 4: J3420 06/03/2016 THER/PROPH/DIAG INJ SC/IM CPT-4: 84287 06/03/2016 THER/PROPH/DIAG INJ SC/IM CPT-4: 08066 2016 VITAMIN B12 INJECTION CPT- 4: J3420 2016 THER/PROPH/DIAG INJ SC/IM CPT-4: 58736 04/01/2016 VITAMIN B12 INJECTION CPT- 4: J3420 04/01/2016 VITAMIN B12 INJECTION CPT- 4: J3420 03/05/2016 THER/PROPH/DIAG INJ SC/IM CPT-4: 31868 03/05/2016 TOBACCO-USE RISK ANALYST 3-[address]: 175440284 CPT-4: G0436 01/29/2016 THER/PROPH/DIAG INJ SC/IM CPT-4: 06150 01/29/2016 VITAMIN B12 INJECTION CPT- 4: J3420 01/29/2016 THER/PROPH/DIAG INJ SC/IM CPT-4: 09466 01/02/2016 VITAMIN B12 INJECTION CPT- 4: J3420 01/02/2016 VITAMIN B12 INJECTION CPT- 4: J3420 12/04/2015 THER/PROPH/DIAG INJ SC/IM CPT-4: 07063 12/04/2015 THER/PROPH/DIAG INJ SC/IM CPT-4: 32840 10/30/2015 VITAMIN B12 INJECTION CPT- 4: J3420 10/30/2015 PPPS, SUBSEQ VISIT CPT- 4: G0439 10/11/2015 TOBACCO-USE RISK ANALYST 3-[address]: 366477797 CPT-4: G0436 10/11/2015 TOBACCO-USE RISK ANALYST 3-[address]: 087999247 CPT-4: G0436 10/02/2015 THER/PROPH/DIAG INJ SC/IM CPT-4: 54265 10/02/2015 VITAMIN B12 INJECTION CPT- 4: J3420 10/02/2015 THER/PROPH/DIAG INJ SC/IM CPT-4: 08237 08/29/2015 VITAMIN B12 INJECTION CPT- 4: J3420 08/29/2015 THER/PROPH/DIAG INJ SC/IM CPT-4: 29526 07/31/2015 VITAMIN B12 INJECTION CPT- 4: J3420 07/31/2015 THER/PROPH/DIAG INJ SC/IM CPT-4: 64421 07/03/2015 VITAMIN B12 INJECTION CPT- 4: J3420 07/03/2015 THER/PROPH/DIAG INJ SC/IM CPT-4: 97945 06/05/2015 VITAMIN B12 INJECTION CPT- 4: J3420 06/05/2015 VITAMIN B12 INJECTION CPT- 4: J3420 05/01/2015 THER/PROPH/DIAG INJ SC/IM CPT-4: 09569 05/01/2015 THER/PROPH/DIAG INJ SC/IM CPT-4: 48112 04/03/2015 VITAMIN B12 INJECTION CPT- 4: J3420 04/03/2015 THER/PROPH/DIAG INJ SC/IM CPT-4: 54772 02/28/2015 VITAMIN B12 INJECTION CPT- 4: J3420 02/28/2015 THER/PROPH/DIAG INJ SC/IM CPT-4: 98356 01/30/2015 VITAMIN B12 INJECTION CPT- 4: J3420 01/30/2015 VITAMIN B12 INJECTION CPT- 4: J3420 01/02/2015 THER/PROPH/DIAG INJ SC/IM CPT-4: 08013 01/02/2015 THER/PROPH/DIAG INJ SC/IM CPT-4: 82405 11/28/2014 VITAMIN B12 INJECTION CPT- 4: J3420 11/28/2014 THER/PROPH/DIAG INJ SC/IM CPT-4: 49513 10/31/2014 VITAMIN B12 INJECTION CPT- 4: J3420 10/31/2014 THER/PROPH/DIAG INJ SC/IM CPT-4: 54543 10/03/2014 VITAMIN B12 INJECTION CPT- 4: J3420 10/03/2014 THER/PROPH/DIAG INJ SC/IM CPT-4: 28236 08/30/2014 VITAMIN B12 INJECTION CPT- 4: J3420 08/30/2014 THER/PROPH/DIAG INJ SC/IM CPT-4: 69813 08/02/2014 VITAMIN B12 INJECTION CPT- 4: J3420 08/02/2014 THER/PROPH/DIAG INJ SC/IM CPT-4: 00398 07/04/2014 VITAMIN B12 INJECTION CPT- 4: J3420 07/04/2014 THER/PROPH/DIAG INJ SC/IM CPT-4: 55073 05/30/2014 VITAMIN B12 INJECTION CPT- 4: J3420 05/30/2014 THER/PROPH/DIAG INJ SC/IM CPT-4: 54613 05/02/2014 VITAMIN B12 INJECTION CPT- 4: J3420 05/02/2014 THER/PROPH/DIAG INJ SC/IM CPT-4: 42100 04/05/2014 THER/PROPH/DIAG INJ SC/IM CPT-4: 00325 03/07/2014 VITAMIN B12 INJECTION CPT- 4: J3420 03/07/2014 THER/PROPH/DIAG INJ SC/IM CPT-4: 29300 02/01/2014 VITAMIN B12 INJECTION CPT- 4: J3420 02/01/2014 VITAMIN B12 INJECTION CPT- 4: J3420 12/30/2013 THER/PROPH/DIAG INJ SC/IM CPT-4: 17225 12/30/2013 THER/PROPH/DIAG INJ SC/IM CPT-4: 20207 11/30/2013 VITAMIN B12 INJECTION CPT- 4: J3420 11/30/2013 THER/PROPH/DIAG INJ SC/IM CPT-4: 93394 11/02/2013 VITAMIN B12 INJECTION CPT- 4: J3420 11/02/2013 THER/PROPH/DIAG INJ SC/IM CPT-4: 84210 08/31/2013 VITAMIN B12 INJECTION CPT- 4: J3420 08/31/2013 THER/PROPH/DIAG INJ SC/IM CPT-4: 62076 08/04/2013 VITAMIN B12 INJECTION CPT- 4: J3420 08/04/2013 VITAMIN B12 INJECTION CPT- 4: J3420 07/06/2013 THER/PROPH/DIAG INJ SC/IM CPT-4: 59847 07/06/2013 THER/PROPH/DIAG INJ SC/IM CPT-4: 80872 05/31/2013 VITAMIN B12 INJECTION CPT- 4: J3420 05/31/2013 ADMIN INFLUENZA VIRUS VAC CPT-4: G0008 05/04/2013 FLULAVAL VACC, 3 YRS & >, IM CPT-4: Q2036 05/04/2013 THER/PROPH/DIAG INJ SC/IM CPT-4: 68108 05/04/2013 VITAMIN B12 INJECTION CPT- 4: J3420 05/04/2013 THER/PROPH/DIAG INJ SC/IM CPT-4: 22988 03/30/2013 VITAMIN B12 INJECTION CPT- 4: J3420 03/30/2013 THER/PROPH/DIAG INJ SC/IM CPT-4: 73634 03/02/2013 VITAMIN B12 INJECTION CPT- 4: J3420 03/02/2013 66516 EST. PATIENT, LEVEL IV CPT-4: 87454 03/02/2013 THER/PROPH/DIAG INJ SC/IM CPT-4: 27433 02/02/2013 VITAMIN B12 INJECTION CPT- 4: J3420 02/02/2013 THER/PROPH/DIAG INJ SC/IM CPT-4: 98990 12/29/2012 VITAMIN B12 INJECTION CPT- 4: J3420 12/29/2012 TRIAMCINOLONE ACET INJ NOS CPT-4: J3301 12/01/2012 VITAMIN B12 INJECTION CPT- 4: J3420 12/01/2012 VITAMIN B12 INJECTION CPT- 4: J3420 11/03/2012 THER/PROPH/DIAG INJ SC/IM CPT-4: 41319 11/03/2012 THER/PROPH/DIAG INJ SC/IM CPT-4: 91008 09/30/2012 VITAMIN B12 INJECTION CPT- 4: J3420 09/30/2012 PRESCRIP TRANSMIT VIA ERX SY CPT-4: G8553 09/30/2012 VITAMIN B12 INJECTION CPT- 4: J3420 09/08/2012 THER/PROPH/DIAG INJ SC/IM CPT-4: 87677 09/08/2012 THER/PROPH/DIAG INJ SC/IM CPT-4: 57974 08/25/2012 ROUTINE VENIPUNCTURE CPT- 4: 68610 08/25/2012 VITAMIN B12 INJECTION CPT- 4: J3420 08/25/2012 THER/PROPH/DIAG INJ SC/IM CPT-4: 86659 08/11/2012 VITAMIN B12 INJECTION CPT- 4: J3420 08/11/2012 VITAMIN B12 INJECTION CPT- 4: J3420 07/21/2012 THER/PROPH/DIAG INJ SC/IM CPT-4: 99701 07/21/2012 THER/PROPH/DIAG INJ SC/IM CPT-4: 85973 07/07/2012 VITAMIN B12 INJECTION CPT- 4: J3420 07/07/2012 ROUTINE VENIPUNCTURE CPT- 4: 65483 07/07/2012 VITAMIN B12 INJECTION CPT- 4: J3420 06/25/2012 THER/PROPH/DIAG INJ SC/IM CPT-4: 11094 06/25/2012 VITAMIN B12 INJECTION CPT- 4: J3420 06/09/2012 THER/PROPH/DIAG INJ SC/IM CPT-4: 21759 06/09/2012 VITAMIN B12 INJECTION CPT- 4: J3420 05/25/2012 THER/PROPH/DIAG INJ SC/IM CPT-4: 65092 05/25/2012 VITAMIN B12 INJECTION CPT- 4: J3420 05/12/2012 THER/PROPH/DIAG INJ SC/IM CPT-4: 05426 05/12/2012 VITAMIN B12 INJECTION CPT- 4: J3420 04/20/2012 THER/PROPH/DIAG INJ SC/IM CPT-4: 30920 04/20/2012 THER/PROPH/DIAG INJ SC/IM CPT-4: 96431 04/07/2012 VITAMIN B12 INJECTION CPT- 4: J3420 04/07/2012 VITAMIN B12 INJECTION CPT- 4: J3420 03/10/2012 THER/PROPH/DIAG INJ SC/IM CPT-4: 21132 03/10/2012 VITAMIN B12 INJECTION CPT- 4: J3420 02/18/2012 THER/PROPH/DIAG INJ SC/IM CPT-4: 57216 02/18/2012 THER/PROPH/DIAG INJ SC/IM CPT-4: 15696 02/04/2012 VITAMIN B12 INJECTION CPT- 4: J3420 02/04/2012 THER/PROPH/DIAG INJ SC/IM CPT-4: 88902 01/21/2012 VITAMIN B12 INJECTION CPT- 4: J3420 01/21/2012 VITAMIN B12 INJECTION CPT- 4: J3420 01/07/2012 VITAMIN B12 INJECTION CPT- 4: J3420 12/17/2011 URINALYSIS NONAUTO W/O SCOPE CPT-4: 63505 12/10/2011 ROUTINE VENIPUNCTURE CPT- 4: 29057 12/10/2011 URINALYSIS NONAUTO W/O SCOPE CPT-4: 97193 11/26/2011 Vital Signs Date Vital 12/18/2015 Blood Pressure 1: 140/68 Code: 8480-6 BMI: 25.7 Code: 12417-1 Heart Rate 1: 83 bpm Height: 5'7" SpO2: 95% Weight: 164 lbs 10/11/2015 Blood Pressure 1: 128/80 Code: 8480-6 BMI: 26.0 Code: 55840-0 Heart Rate 1: 80 bpm Height: 5'7" SpO2: 97% Waist Measure (cm): 89 cm Weight: 166 lbs 01/16/2015 Blood Pressure 1: 122/84 Code: 8480-6 BMI: 25.7 Code: 59300-6 Heart Rate 1: 68 bpm Height: 5'7" SpO2: 95% Weight: 164 lbs 08/02/2014 Blood Pressure 1: 140/86 Code: 8480-6 BMI: 25.1 Code: 17935-8 Heart Rate 1: 64 bpm Height: 5'7" Weight: 160 lbs 03/02/2013 Blood Pressure 1: 108/74 Code: 8480-6 BMI: 28.3 Code: 98269-1 Heart Rate 1: 80 bpm Height: 5'7" Weight: 181 lbs 09/30/2012 Blood Pressure 1: 126/74 Code: 8480-6 Heart Rate 1: 64 bpm Weight: 07/07/2012 Blood Pressure 1: 130/84 Code: 8480-6 BMI: 26.6 Code: 43670-2 Heart Rate 1: 80 bpm Height: 5'7" [...] 1: 110/68 Code: 8480-6 BMI: 25.7 Code: 03502-6 Heart Rate 1: 68 bpm Height: 5'7" Weight: 164 lbs Functional Status No Functional Status data History of Present Illness Symptom Name Status Result Effective Date Notes vaccination against influenza Location deltoid- Lt 2017 [...] data Encounters Encounter Performer Location Codes Date 70475 EST. PATIENT, LEVEL III Diagnosis: Encounter for follow-up examination after completed treatment for conditions other than malignant neoplasm[ICD10: Z09] [facility] CPT-4: 30521 12/18/2015 [id number] EST. PATIENT, LEVEL IV Diagnosis: Cellulitis of right lower limb[ICD10: L03.115] Diagnosis: Vitamin B12 deficiency anemia due to intrinsic factor deficiency[ICD10: D51.0] [facility] CPT-4: 61619 12/04/2015 ([id number]) Miscellaneous no charge Diagnosis: Vitamin B deficiency, unspecified[ICD10: E53.9] [facility] CPT-4: 64607 07/31/2015 ([id number]) 97051 EST. PATIENT, LEVEL IV Diagnosis: Schizophrenia[ICD9: 295.90] Diagnosis: DEPRESSIVE DISORDER NEC[ICD9: 311] Diagnosis: Medication dose changed[ICD9: V58.69] Diagnosis: Leg pain[ICD9: 729.5] Loren Vitale MD, [facility] CPT-4: 37158 01/16/2015 ([id number]) 18693 EST. PATIENT, LEVEL III Diagnosis: Rash[ICD9: 782.1] Camille Vitale MD, [facility] CPT-4: 78800 08/02/2014 ([id number]) Miscellaneous no charge Diagnosis: SCHIZO NOS, CHRN[ICD9: 295.92] Loren Vitale MD, [facility] CPT-4: 45913 05/03/2013 ([id number]) 90908 EST. PATIENT, LEVEL III Diagnosis: Rash[ICD9: 782.1] Diagnosis: B-COMPLEX DEFIC NEC[ICD9: 266.2] Loren Vitale MD, [facility] CPT-4: 92548 09/30/2012 ([id number]) 90026 EST. PATIENT, LEVEL IV Diagnosis: SCHIZO NOS, CHRN[ICD9: 295.92] Diagnosis: DEMEN NOS W/O BEHV DSTRB[ICD9: 294.20] Loren Vitale MD, [facility] CPT-4: 74106 07/07/2012 ([id number]) 48666 EST. PATIENT, LEVEL IV Diagnosis: DEMEN NOS W/O BEHV DSTRB[ICD9: 294.20] Diagnosis: SCHIZO NOS, CHRN[ICD9: 295.92] Diagnosis: Vitamin B 12 deficiency[ICD9: 266.2] Loren Vitale MD, [facility] CPT- 4: 14458 01/07/2012 ([id number]) 20719 EST. PATIENT, LEVEL IV Diagnosis: DEMEN NOS W/O BEHV DSTRB[ICD9: 294.20] Diagnosis: ALTERED MENTAL STATUS[ICD9: 780.97] Diagnosis: Myalgia[ICD9: 729.1] Loren Vitale MD, [facility] CPT-4: 15426 12/17/2011 ([id number]) 61771 EST. PATIENT, LEVEL IV Diagnosis: Orthostatic hypotension[ICD9: 458.0] Diagnosis: Hypokalemia[ICD9: 276.8] Diagnosis: DEMEN NOS W/O BEHV DSTRB[ICD9: 294.20] Diagnosis: SCHIZO NOS, CHRN[ICD9: 295.92] Diagnosis: ALTERED MENTAL STATUS[ICD9: 780.97] [facility] CPT-4: 00700 12/10/2011 OFFICE/OUTPATIENT VISIT NEW Diagnosis: Schizophrenia, chronic condition[ICD9: 295.92] Diagnosis: Encounter for long-term (current) use of other high-risk medications[ICD9: V58.69] [facility] CPT-4: 15381 11/26/2011 Plan of Care Planned Activity Notes Codes Status Date Patient Education: Patient Medication Summary Completed 08/04/2017 [...] pain. 12/18/2015 [phone] [facility] ([facility] 12/18/2015 Patient Education: Patient Medication Summary Completed [...] pain. 12/04/2015 App[facility]ment[facility] [phone] [facility] ([facility] min) Simple 12/04/2015 Patient Education: [...] paperwork for health care surrogate. 10/11/2015 Appointment: [facility] - Annual Wellness Visit 10/11/2015 Patient [...] labs. 01/16/2015 [facility]ment[facility] [phone] [facility] [place] (15 min) Moderate 01/16/2015 Patient Education: Patient Medication Summary Completed 01/16/2015 Appointment: Injection 01/02/2015 Patient Education: Patient Medication Summary Completed 01/02/2015 Patient Education: Patient Medication Summary Completed 11/28/2014 Patient Education: Patient Medication Summary Completed 10/31/2014 Patient Education: Patient Medication Summary Completed 10/03/2014 Patient Education: Patient Medication Summary Completed 08/30/2014 Visit Plan: Ubof-ytoyvhio-snuxoyexwbslz cream to affected area twice daily as directed-call if rash does not completely resolve B12 deficiency-B12 injection today in the office 08/02/2014 Appointment: Camille Devi WPtel: [phone] [place] Sick 08/02/2014 Patient Education: Patient Medication Summary Completed 08/02/2014 Patient Education: Patient Medication Summary Completed 07/04/2014 Patient Education: Patient Medication Summary Completed 05/30/2014 Appointment: Loren Vitale WPtel[facility] [place] Injection 05/02/2014 Patient Education: Patient Medication Summary Completed 05/02/2014 Patient Education: Patient Medication Summary Completed 04/05/2014 Appointment: Camille Devi WPtel: [phone] [phone] [place] Injection 03/07/2014 Patient Education: Patient Medication Summary Completed 03/07/2014 Appointment: [facility] [phone] [facility] [place] In[facility] 02/01/2014 Patient Education: Patient Medication Summary Completed 02/01/2014 [facility]ment: [facility] [phone] [facility] [place] In[facility] 12/30/2013 Patient Education: Patient Medication Summary Completed 12/30/2013 [facility]ment[facility] [phone] [facility] [place] [facility] 11/30/2013 Patient Education: Patient Medication Summary Completed 11/30/2013 Appointment: [facility] [phone] [phone] [place] Injection 11/02/2013 Patient Education: Patient Medication Summary Completed 11/02/2013 Appointment: [facility] [phone] [facility] [place] In[facility] 09/28/2013 Appointment: [facility] [phone] [facility] [place] [facility] 08/31/2013 Patient Education: Patient Medication Summary Completed 08/31/2013 Patient Education: Patient Medication Summary Completed 08/04/2013 Appointment: [facility] [phone] [facility] [place] In[facility] 08/03/2013 Appointment: [facility] [phone] [facility] [place] [facility] 07/06/2013 Patient Education: Patient Medication Summary Completed 07/06/2013 Appointment: [facility] [phone] [phone] [place] Injection 05/31/2013 Patient Education: Patient Medication Summary Completed 05/31/2013 Appointment: [facility]el[facility] [phone] [phone] [place] Injection 05/04/2013 Patient Education: [...] psychiatrist. 05/03/2013 Appointment: [facility] [phone] [facility] [place] Other 05/03/2013 Patient Education: Patient Medication Summary Completed 05/03/2013 Appointment: Camille Devi WPtel: [phone] [phone] [place] Injection 03/30/2013 Patient Education: Patient Medication [...] deficiency. 03/02/2013 Appointment: Loren [facility] [phone] [facility] Follow up 03/02/2013 Patient Education: Patient Medication Summary Completed 03/02/2013 Appointment: [facility] [phone] [facility] [place] Injection 02/02/2013 Patient Education: Patient Medication Summary Completed 02/02/2013 Patient Education: Patient Medication Summary Completed 12/29/2012 Appointment: [facility] D[facility]Ptel[facility] [phone] [phone] [place] Injection 12/01/2012 Patient Education: Patient Medication Summary Completed 12/01/2012 Appointment: [facility] [phone] [facility] [place] [facility] 11/03/2012 Patient Education: Patient Medication Summary Completed 11/03/2012 Visit Plan: Rash-discussed natural and expected course of this diagnosis and to alert me if symptoms do not follow expected course, or if any worse. RX sent to patient's pharmacy and instructed on use. B12 def-injection today in the office 09/30/2012 Appointment: [facility] [phone] [facility] [place] Other 09/30/2012 Patient Education: Patient Medication Summary Completed 09/30/2012 Patient Education: Patient Medication Summary Completed 09/08/2012 Appointment: [facility]Ptel[facility] [phone] [phone] [place] Injection 08/25/2012 Patient Education: Patient Medication Summary Completed 08/25/2012 Appointment: [facility] [phone] [facility] [place] Injection 08/11/2012 Patient Education: Patient Medication Summary Completed 08/11/2012 Appointment: Loren [facility] [phone] [facility] [place] Injection 07/21/2012 Patient Education: Patient [...] deficiency. 07/07/2012 Appointment: Loren [facility] [phone] [facility] [place] Follow up 07/07/2012 Patient Education: Patient Medication Summary Completed 07/07/2012 Patient Education: Patient Medication Summary Completed 06/25/2012 Patient Education: Patient Medication Summary Completed 06/09/2012 Patient Education: Patient Medication Summary Completed 05/25/2012 Appointment: [facility] [phone] [facility] [place] Injection 05/12/2012 Patient Education: Patient Medication Summary Completed 05/12/2012 Patient Education: Patient Medication Summary Completed 04/20/2012 Appointment: [facility]Ptel[facility] [phone] [phone] [place] Injection 04/07/2012 Patient Education: Patient Medication Summary Completed 04/07/2012 Appointment: [facility]i [facility]Ptel[facility] [phone] [phone] [place] Injection 03/24/2012 Appointment: [facility]i [facility]Ptel[facility] [phone] [phone] [place] Injection 03/10/2012 Patient Education: Patient Medication Summary Completed 03/10/2012 Appointment: [facility] [phone] [facility] [place] Injection 02/18/2012 Patient Education: Patient Medication Summary Completed 02/18/2012 Appointment: [facility] [phone] [facility] [place] Injection 02/04/2012 Patient Education: Patient Medication Summary Completed 02/04/2012 Appointment: [facility] [phone] [facility] [place] Injection 01/21/2012 Patient Education: Patient [...] normal. 01/07/2012 Appointment: Loren [facility] [phone] [facility] [place] Other 01/07/2012 Patient Education: Patient [...] he is apparently on vacation to the [facility] and may not respond until he gets back in December. I think that Juan's medications need adjusted and that is the largest part of his new symptoms. 12/17/2011 Appointment: Loren Vitale WPtel[facility] Other 12/17/2011 Patient Education: Patient Medication [...] about assistance. 12/10/2011 Appointment: Camille Devi WPtel: [address] [place], [place] [phone] [place] Work-in 12/10/2011 Patient Education: Patient Medication [...] first get his labs [place] from the [place] prior to starting on the [place]. His UA was negative. Time based documentation -I spent over 60 minutes with the patient in discussion of the disease process, expected course, and overall prognosis for the patient's disease state. The patient/family expressed understanding. 11/26/2011 Appointment: Loren Vitale WPtel[facility] [address] [id number] [place] New Patient 11/26/2011 Patient Education: [...] he is apparently on vacation to the [facility] and may not respond until he gets back in December. I think that Juan's medications need adjusted and that is the largest part of his new symptoms. . Jses-xlghswam-zplushhxxqnax cream to affected area twice daily as [...] care surrogate. . Discussed with Rubén that Jaun does indeed need a new psychiatrist. From [...]
[2018-12-22 16:14] LABS: BAND NEUTROPHILS 4 %; EOSINOPHILS % (MANUAL) 1 %; LYMPHOCYTES % (MANUAL) 4 %; MONOCYTES % (MANUAL) 5 %; NEUTROPHILS % (MANUAL) 86 %; RBC MORPH NORMAL
--- OUTSIDE RECORDS SUMMARY | 2018-12-22 16:15 | XMS REPORT ---
Author Author Migration, Doctor Organization [facility] Address Unknown Phone Unavailable Care Team Providers Care Heating Unit Installer Name Role Phone Migration, Doctor Unavailable Unavailable PROBLEMS Type Condition ICD9-CM Code [id number] Code Onset Dates Condition Status SNOMED Code Problem Encounter for long-term (current) use of other medications V58.69 Active 168264003 Problem Paranoid schizophrenia, unspecified condition 295.30 Active [id number] ALLERGIES No Information ENCOUNTERS Encounter Location Date Diagnosis [facility] [id number] [place] [phone] Sep, [facility] [id number] [place] [phone] Sep, [facility] [id number] [place] [phone] Jun, [facility] [id number] [place] [phone] Jun, [facility] [id number] [place] [phone] Feb, [facility] [id number] [place] [phone] Sep, [facility] [id number] [place] [phone] Sep, [facility] [id number] [place] [phone] Jul, [facility] [id number] [place] [phone] Jun, [facility] [id number] [place] [phone] Jun, IMMUNIZATIONS No Known Immunizations SOCIAL HISTORY Never Assessed REASON FOR VISIT EMR-[facility] [place] PLAN OF CARE VITAL SIGNS MEDICATIONS Unknown Medications RESULTS No Results PROCEDURES No Known procedures INSTRUCTIONS MEDICATIONS ADMINISTERED No Known Medications
--- OUTSIDE RECORDS SUMMARY | 2018-12-22 16:15 | XMS REPORT ---
Author Author Migration, Doctor Organization 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 Role Phone Migration, Doctor Unavailable Unavailable PROBLEMS Type Condition ICD9-CM Code [id number] Code Onset Dates Condition Status SNOMED Code Problem Encounter for long-term (current) use of other medications V58.69 Active 211798687 Problem Paranoid schizophrenia, unspecified condition 295.30 Active [id number] ALLERGIES No Information ENCOUNTERS Encounter Location Date Diagnosis [facility] [id number] [place] [phone] Sep, [facility] [id number] [place] [phone] Sep, [facility] [id number] [place] [phone] Jun, [facility] [id number] [place] [phone] Jun, [facility] [id number] [place] [phone] Feb, [facility] [id number] [place] [phone] Sep, [facility] [id number] [place] [phone] Sep, [facility] [id number] [place] [phone] Jul, [facility] [id number] [place] [phone] Jun, [facility] [id number] [place] [phone] Jun, IMMUNIZATIONS No Known Immunizations SOCIAL HISTORY Never Assessed REASON FOR VISIT [facility] PLAN OF CARE VITAL SIGNS MEDICATIONS Medication Instructions Dosage Frequency Start Date End Date Duration Status Clonazepam 1 mg 1 Tablet by Oral route 2 times per dayone in the morning and one at bedtime Jun, Active Anafranil 25 mg 1 Capsule by Oral route 1 time per dayin the morning Jun, Active trifluoperazine 5 mg 1 Tablet by Oral route 2 times per dayin the morning and evening Jun, Active benztropine 1 mg 1 Tablet by Oral route 3 times per day Jun, Active Risperidone 3 mg 1 Tablet by Oral route 2 times per dayon even days Jun, Active Wellbutrin SR 200 mg 1 Tablet by Oral route 1 time per dayin the morning Jun, Active RESULTS No Results PROCEDURES No Known procedures INSTRUCTIONS MEDICATIONS ADMINISTERED No Known Medications
--- OUTSIDE RECORDS SUMMARY | 2018-12-22 16:15 | XMS REPORT ---
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 Role Phone Migration, Doctor Unavailable Unavailable PROBLEMS Type Condition ICD9-CM Code HKK48-NN Code Onset Dates Condition Status SNOMED Code Problem Encounter for long-term (current) use of other medications V58.69 Active 842622205 Problem Paranoid schizophrenia, unspecified condition 295.30 Active [id number] ALLERGIES No Information ENCOUNTERS Encounter Location Date Diagnosis [facility] [place] [id number] [place] [phone] Sep, [facility] [place] [id number] [place] [phone] Sep, [facility] [place] [id number] [place] [phone] Jun, [facility] [place] [id number] [place] [phone] Jun, [facility] [place] [id number] [place] [phone] Feb, [facility] [place] [id number] [place] [phone] Sep, [facility] [place] [id number] [place] [phone] Sep, [facility] [place] [id number] [place] [phone] Jul, [facility] [place] [id number] [place] [phone] Jun, [facility] [place] [id number] [place] [phone] Jun, IMMUNIZATIONS No Known Immunizations SOCIAL HISTORY Never Assessed REASON FOR VISIT EMR-[facility] [place] PLAN OF CARE VITAL SIGNS MEDICATIONS Unknown Medications RESULTS No Results PROCEDURES No Known procedures INSTRUCTIONS MEDICATIONS ADMINISTERED No Known Medications
--- OUTSIDE RECORDS SUMMARY | 2018-12-22 16:15 | XMS REPORT | CCD ---
Author Author Loren Vitale MD, [facility] Address [address] [place] [address] Phone Care Team Providers [employer] In[employer] Name Role Phone PP Unavailable CCM Unavailable Summary Purpose Interface Exchange Insurance Providers Payer name Policy type / Coverage type Covered libertarian ID Effective Begin Date Effective End Date WPS Medicare Part B Medicare Part B [id number] 2013 Unknown [place] [employer] Medicare Part B [id number] Unknown Family history Sister Diagnosis Age At Onset No Family Disease Entered N/A First cousin Diagnosis Age At Onset No Family Disease Entered N/A Mother Diagnosis Age At Onset Dementia Unknown Social History Social History Element Codes Description Effective Dates Marital status Unknown Single 11/26/[address]: 08733948 Current every day smoker 2 packs daily 11/26/[address]: 886263915 Never drinks alcohol 11/26/2011 Has the patient [...] (vit B-12) 1,000 mcg/mL injection solution RxNorm: 180808 Milliliter(s) Inj 08/04/2017 08/04/2017 Inactive cyanocobalamin (vit B-12) 1,000 mcg/mL injection solution RxNorm: 846832 1 Milliliter(s) Inj 07/01/2017 07/01/2017 Inactive cyanocobalamin (vit B-12) 1,000 mcg/mL injection solution RxNorm: 888187 Milliliter(s) Inj 05/30/2017 05/30/2017 Inactive cyanocobalamin (vit B-12) 1,000 mcg/mL injection solution RxNorm: 381263 1 Milliliter(s) Inj 2017 2017 Inactive Wellbutrin SR 100 mg tablet, 12 hr sustained-release RxNorm: 129020 TAKE ONE TABLET BY MOUTH EVERY NIGHT AT BEDTIME 04/23/2017 10/19/2017 Active cyanocobalamin (vit B-12) 1,000 mcg/mL injection solution RxNorm: 616810 Milliliter(s) Inj 03/31/2017 03/31/2017 Inactive cyanocobalamin (vit B-12) 1,000 mcg/mL injection solution RxNorm: 979748 Milliliter(s) Inj 02/28/2017 02/28/2017 Inactive cyanocobalamin (vit B-12) 1,000 mcg/mL injection solution RxNorm: 568689 Milliliter(s) Inj 02/03/2017 02/03/2017 Inactive cyanocobalamin (vit B-12) 1,000 mcg/mL injection solution RxNorm: 458824 1 Milliliter(s) Inj 12/30/2016 12/30/2016 Inactive cyanocobalamin (vit B-12) 1,000 mcg/mL injection solution RxNorm: 623185 1 Milliliter(s) Inj 12/02/2016 12/02/2016 Inactive Wellbutrin SR 100 mg tablet, 12 hr sustained-release RxNorm: 605725 TAKE ONE TABLET BY MOUTH EVERY NIGHT AT BEDTIME 10/30/2016 04/22/2017 Inactive cyanocobalamin (vit B-12) 1,000 mcg/mL injection solution RxNorm: 054651 Milliliter(s) Inj 10/29/2016 10/29/2016 Inactive cyanocobalamin (vit B-12) 1,000 mcg/mL injection solution RxNorm: 103857 1 Milliliter(s) Inj 10/01/2016 10/01/2016 Inactive cyanocobalamin (vit B-12) 1,000 mcg/mL injection solution RxNorm: 295921 Milliliter(s) Inj 09/02/2016 09/02/2016 Inactive cyanocobalamin (vit B-12) 1,000 mcg/mL injection solution RxNorm: 709161 Milliliter(s) Inj 08/05/2016 08/05/2016 Inactive cyanocobalamin (vit B-12) 1,000 mcg/mL injection solution RxNorm: 772008 1 Milliliter(s) Inj 07/02/2016 07/02/2016 Inactive cyanocobalamin (vit B-12) 1,000 mcg/mL injection solution RxNorm: 486597 Milliliter(s) Inj 06/03/2016 06/03/2016 Inactive cyanocobalamin (vit B-12) 1,000 mcg/mL injection solution RxNorm: 124991 Milliliter(s) Inj 2016 2016 Inactive Wellbutrin SR 100 mg tablet,sustained-release RxNorm: 251273 1 Tablet(s) PO QHS 04/01/2016 10/27/2016 Inactive cyanocobalamin (vit B-12) 1,000 mcg/mL injection solution RxNorm: 021162 Milliliter(s) Inj 04/01/2016 04/01/2016 Inactive cyanocobalamin (vit B-12) 1,000 mcg/mL injection solution RxNorm: 155018 1 Milliliter(s) Inj 03/05/2016 03/05/2016 Inactive cyanocobalamin (vit B-12) 1,000 mcg/mL injection solution RxNorm: 283701 Milliliter(s) Inj 01/29/2016 01/29/2016 Inactive cyanocobalamin (vit B-12) 1,000 mcg/mL injection solution RxNorm: 579819 Milliliter(s) Inj 01/02/2016 01/02/2016 Inactive mupirocin 2 % topical ointment RxNorm: 614974 1 Application TOP BID 12/04/2015 No Stop Date Active doxycycline hyclate 100 mg capsule RxNorm: 2084889 1 Capsule(s) PO BID 12/04/2015 12/13/2015 Inactive cyanocobalamin (vit B-12) 1,000 mcg/mL injection solution RxNorm: 345819 Milliliter(s) Inj 10/30/2015 10/30/2015 Inactive cyanocobalamin (B12)-cobamamide 5,000 mcg-100 mcg sublingual tablet RxNorm: 366598 Tablet(s) SL 10/02/2015 10/02/2015 Inactive Wellbutrin SR 100 mg tablet,sustained-release RxNorm: 230577 1 Tablet(s) PO QHS 09/08/2015 03/31/2016 Inactive cyanocobalamin (vit B-12) 1,000 mcg/mL injection solution RxNorm: 827534 Milliliter(s) Inj 08/29/2015 08/29/2015 Inactive cyanocobalamin (vit B-12) 1,000 mcg/mL injection solution RxNorm: 555941 Milliliter(s) Inj 07/31/2015 07/31/2015 Inactive cyanocobalamin (vit B-12) 1,000 mcg/mL injection solution RxNorm: 462637 Milliliter(s) Inj 06/05/2015 06/05/2015 Inactive cyanocobalamin (vit B-12) 1,000 mcg/mL injection solution RxNorm: 748168 Milliliter(s) Inj 05/01/2015 05/01/2015 Inactive cyanocobalamin (vit B-12) 1,000 mcg/mL injection solution RxNorm: 798791 Milliliter(s) Inj 04/03/2015 04/03/2015 Inactive cyanocobalamin (vit B-12) 1,000 mcg/mL injection solution RxNorm: 846887 Milliliter(s) Inj 02/28/2015 02/28/2015 Inactive cyanocobalamin (vit B-12) 1,000 mcg/mL injection solution RxNorm: 053584 Milliliter(s) Inj 01/30/2015 01/30/2015 Inactive Wellbutrin SR 100 mg tablet,sustained-release RxNorm: 223392 1 Tablet(s) PO QHS 01/16/2015 08/13/2015 Inactive cyanocobalamin (vit B-12) 1,000 mcg/mL injection solution RxNorm: 605984 1 Milliliter(s) Inj 01/02/2015 01/02/2015 Inactive cyanocobalamin (vit B-12) 1,000 mcg/mL injection solution RxNorm: 088810 1 Milliliter(s) Inj 11/28/2014 11/28/2014 Inactive cyanocobalamin (vit B-12) 1,000 mcg/mL injection solution RxNorm: 144211 Milliliter(s) Inj 10/31/2014 10/31/2014 Inactive [SAVINGS FOR NON-COVERED DRUGS -- BIN:625117, PCN: ASPROD1, Group: XXXXX, ID# [id number], Questions: . THIS IS NOT INSURANCE.] cyanocobalamin (vit B-12) 1,000 mcg/mL injection solution RxNorm: 182671 1 Milliliter(s) Inj daily 10/03/2014 10/03/2014 Inactive [SAVINGS FOR NON-COVERED DRUGS -- BIN:390551, PCN: ASPROD1, Group: XXXXX, ID# [id number], Questions: . THIS IS NOT INSURANCE.] cyanocobalamin (vit B-12) 1,000 mcg/mL injection solution RxNorm: 771316 Milliliter(s) Inj 08/30/2014 08/30/2014 Inactive [SAVINGS FOR NON-COVERED DRUGS -- BIN:090647, PCN: ASPROD1, Group: XXXXX, ID# [id number], Questions: . THIS IS NOT INSURANCE.] nystatin-triamcinolone 100,000 unit/g-0.1 % topical cream RxNorm: 9517363 1 Application TOP BID 08/02/2014 08/08/2014 Inactive [SAVINGS FOR UNINSURED PATIENTS -- BIN:941214, PCN: ASPROD1, Group: [id number], ID# [id number], Process claim through [employer], for questions: . THIS IS NOT INSURANCE.] cyanocobalamin (vit B-12) 1,000 mcg/mL injection solution RxNorm: 124764 Milliliter(s) Inj 08/02/2014 08/02/2014 Inactive [SAVINGS FOR UNINSURED PATIENTS -- BIN:485932, PCN: ASPROD1, Group: [id number], ID# [id number], Process claim through [employer], for questions: . THIS IS NOT INSURANCE.] cyanocobalamin (vit B-12) 1,000 mcg/mL injection kit RxNorm: 193676 Milliliter(s) Inj 07/04/2014 07/04/2014 Inactive [SAVINGS FOR UNINSURED PATIENTS -- BIN:177820, PCN: ASPROD1, Group: [id number], ID# [id number], Process claim through [employer], for questions: . THIS IS NOT INSURANCE.] cyanocobalamin (vit B-12) 1,000 mcg/mL injection solution RxNorm: 247062 Milliliter(s) Inj 05/30/2014 05/30/2014 Inactive cyanocobalamin (vit B-12) 1,000 mcg/mL injection solution RxNorm: 647657 Milliliter(s) Inj 05/02/2014 05/02/2014 Inactive cyanocobalamin (vit B-12) 1,000 mcg/mL injection solution RxNorm: 737794 Milliliter(s) Inj 04/05/2014 04/05/2014 Inactive cyanocobalamin (vit B-12) 1,000 mcg/mL injection solution RxNorm: 815148 Milliliter(s) Inj 03/07/2014 03/07/2014 Inactive cyanocobalamin (vit B-12) 1,000 mcg/mL injection solution RxNorm: 943625 1 Milliliter(s) Inj 02/01/2014 02/01/2014 Inactive cyanocobalamin (vit B-12) 1,000 mcg/mL injection solution RxNorm: 257085 1 Milliliter(s) Inj 12/30/2013 12/30/2013 Inactive [SAVINGS FOR UNINSURED PATIENTS -- BIN:228208, PCN: ASPROD1, Group: [id number], ID# [id number], Process claim through [employer], for questions: . THIS IS NOT INSURANCE.] cyanocobalamin (vit B-12) 1,000 mcg/mL injection solution RxNorm: 776987 Milliliter(s) Inj 11/30/2013 11/30/2013 Inactive cyanocobalamin (vit B-12) 1,000 mcg/mL injection solution RxNorm: 694927 1 Milliliter(s) Inj 11/02/2013 11/02/2013 Inactive Vitamin B-12 1,000 mcg/mL injection solution RxNorm: 865580 Milliliter(s) Inj 08/31/2013 08/31/2013 Inactive Vitamin B-12 1,000 mcg/mL injection solution RxNorm: 297970 1 Milliliter(s) Inj 08/04/2013 08/04/2013 Inactive Vitamin B-12 1,000 mcg/mL injection solution RxNorm: 172403 Milliliter(s) Inj 07/06/2013 07/06/2013 Inactive cyanocobalamin (vit B-12) 1,000 mcg/mL injection solution RxNorm: 938373 Milliliter(s) Inj 05/31/2013 05/31/2013 Inactive cyanocobalamin (vit B-12) 1,000 mcg/mL injection kit RxNorm: 443576 Milliliter(s) Inj 05/04/2013 05/04/2013 Inactive cyanocobalamin (vitamin B-12) 1,000 mcg/mL Injection RxNorm: 122681 Milliliter(s) Inj 03/30/2013 03/30/2013 Inactive cyanocobalamin (vitamin B-12) 1,000 mcg/mL Injection RxNorm: 659768 Milliliter(s) Inj 02/02/2013 02/02/2013 Inactive cyanocobalamin (vitamin B-12) 1,000 mcg/mL Injection RxNorm: 281597 Milliliter(s) Inj 12/29/2012 12/29/2012 Inactive cyanocobalamin (vitamin B-12) 1,000 mcg/mL Injection RxNorm: 401821 Milliliter(s) Inj 12/01/2012 12/01/2012 Inactive Vitamin B-12 1,000 mcg tablet RxNorm: 371563 Tablet(s) PO 11/03/2012 11/03/2012 Inactive Vitamin B-12 1,000 mcg/mL Injection RxNorm: 556186 1 Milliliter(s) Inj 09/30/2012 09/30/2012 Inactive triamcinolone acetonide 0.1 % Topical Cream RxNorm: 2211111 1 Application TOP BID 09/30/2012 10/13/2012 Inactive Vitamin B-12 1,000 mcg/mL Injection RxNorm: 975450 1 Milliliter(s) Inj 09/08/2012 09/08/2012 Inactive cyanocobalamin (vitamin B-12) 1,000 mcg/mL Injection RxNorm: 650883 1 Milliliter(s) Inj 08/25/2012 08/25/2012 Inactive cyanocobalamin (vitamin B-12) 1,000 mcg/mL Injection RxNorm: 295590 1 Milliliter(s) Inj 08/11/2012 08/11/2012 Inactive cyanocobalamin (vitamin B-12) 1,000 mcg/mL Injection RxNorm: 442427 1 Milliliter(s) Inj 07/21/2012 07/21/2012 Inactive Vitamin B-12 1,000 mcg/mL Injection RxNorm: 929178 Milliliter(s) Inj 07/07/2012 07/07/2012 Inactive cyanocobalamin (vitamin B-12) 1,000 mcg/mL Injection RxNorm: 760466 1 Milliliter(s) Inj 06/25/2012 06/25/2012 Inactive Vitamin B-12 1,000 mcg/mL Injection RxNorm: 983676 1 Milliliter(s) Inj 06/09/2012 06/09/2012 Inactive Vitamin B-12 1,000 mcg/mL Injection RxNorm: 247385 Milliliter(s) Inj 05/25/2012 05/25/2012 Inactive Vitamin B-12 1,000 mcg/mL Injection RxNorm: 188250 Milliliter(s) Inj 05/12/2012 05/12/2012 Inactive Vitamin B-12 1,000 mcg/mL Injection RxNorm: 910651 Milliliter(s) Inj 04/20/2012 04/20/2012 Inactive Vitamin B-12 1,000 mcg/mL Injection RxNorm: 159725 Milliliter(s) Inj 04/07/2012 04/07/2012 Inactive Vitamin B-12 1,000 mcg/mL Injection RxNorm: 122814 Milliliter(s) Inj 03/10/2012 03/10/2012 Inactive Vitamin B-12 1,000 mcg/mL Injection RxNorm: 837145 Milliliter(s) Inj 02/18/2012 02/18/2012 Inactive Vitamin B-12 1,000 mcg/mL Injection RxNorm: 112748 Milliliter(s) Inj 02/04/2012 02/04/2012 Inactive Vitamin B-12 1,000 mcg/mL Injection RxNorm: 453776 Milliliter(s) Inj 01/21/2012 01/21/2012 Inactive Vitamin B-12 1,000 mcg/mL Injection RxNorm: 855282 Milliliter(s) Inj 01/07/2012 01/07/2012 Inactive Vitamin B-12 1,000 mcg/mL Injection RxNorm: 540653 Milliliter(s) Inj 12/17/2011 12/17/2011 Inactive KCL 10 meq RxNorm: 1 PO daily 12/12/2011 12/16/2011 Inactive Vitamin B-12 1,000 mcg/mL Injection RxNorm: 901319 1 Milliliter(s) Inj monthly No Start Date Active Wellbutrin SR 200 mg Tab RxNorm: 584282 1 Tablet(s) PO daily No Start Date Active Anafranil 25 mg Cap RxNorm: 780212 1 Capsule(s) PO daily No Start Date Active Stelazine 5 mg Tab RxNorm: 670477 1 Tablet(s) PO BID No Start Date Active clonazepam 1 mg Tab RxNorm: 564311 1 Tablet(s) PO BID No Start Date Active risperidone 3 mg Tab RxNorm: 641265 Tablet(s) PO No Start Date Active 2 on even days 3 on odd days Cogentin 1 mg Tab RxNorm: 297561 1 Tablet(s) PO TID No Start Date Active Medication Administered Medication Codes Instructions Start Date Status cyanocobalamin (vit B-12) 1,000 mcg/mL injection solution RxNorm: 948215 Milliliter 08/04/2017 No longer Active cyanocobalamin (vit B-12) 1,000 mcg/mL injection solution RxNorm: 162191 1Milliliter 07/01/2017 No longer Active cyanocobalamin (vit B-12) 1,000 mcg/mL injection solution RxNorm: 817979 Milliliter 05/30/2017 No longer Active cyanocobalamin (vit B-12) 1,000 mcg/mL injection solution RxNorm: 820883 1Milliliter 2017 No longer Active cyanocobalamin (vit B-12) 1,000 mcg/mL injection solution RxNorm: 478416 Milliliter 03/31/2017 No longer Active cyanocobalamin (vit B-12) 1,000 mcg/mL injection solution RxNorm: 536232 Milliliter 02/28/2017 No longer Active cyanocobalamin (vit B-12) 1,000 mcg/mL injection solution RxNorm: 756209 Milliliter 02/03/2017 No longer Active cyanocobalamin (vit B-12) 1,000 mcg/mL injection solution RxNorm: 474091 1Milliliter 12/30/2016 No longer Active cyanocobalamin (vit B-12) 1,000 mcg/mL injection solution RxNorm: 006216 1Milliliter 12/02/2016 No longer Active cyanocobalamin (vit B-12) 1,000 mcg/mL injection solution RxNorm: 029933 Milliliter 10/29/2016 No longer Active cyanocobalamin (vit B-12) 1,000 mcg/mL injection solution RxNorm: 947952 1Milliliter 10/01/2016 No longer Active cyanocobalamin (vit B-12) 1,000 mcg/mL injection solution RxNorm: 302261 Milliliter 09/02/2016 No longer Active cyanocobalamin (vit B-12) 1,000 mcg/mL injection solution RxNorm: 080187 Milliliter 08/05/2016 No longer Active cyanocobalamin (vit B-12) 1,000 mcg/mL injection solution RxNorm: 121776 1Milliliter 07/02/2016 No longer Active cyanocobalamin (vit B-12) 1,000 mcg/mL injection solution RxNorm: 546159 Milliliter 06/03/2016 No longer Active cyanocobalamin (vit B-12) 1,000 mcg/mL injection solution RxNorm: 626208 Milliliter 2016 No longer Active cyanocobalamin (vit B-12) 1,000 mcg/mL injection solution RxNorm: 055954 Milliliter 04/01/2016 No longer Active cyanocobalamin (vit B-12) 1,000 mcg/mL injection solution RxNorm: 170737 1Milliliter 03/05/2016 No longer Active cyanocobalamin (vit B-12) 1,000 mcg/mL injection solution RxNorm: 557860 Milliliter 01/29/2016 No longer Active cyanocobalamin (vit B-12) 1,000 mcg/mL injection solution RxNorm: 215464 Milliliter 01/02/2016 No longer Active cyanocobalamin (vit B-12) 1,000 mcg/mL injection solution RxNorm: 066515 Milliliter 10/30/2015 No longer Active cyanocobalamin (B12)-cobamamide 5,000 mcg-100 mcg sublingual tablet RxNorm: 592589 Tablet 10/02/2015 No longer Active cyanocobalamin (vit B-12) 1,000 mcg/mL injection solution RxNorm: 622327 Milliliter 08/29/2015 No longer Active cyanocobalamin (vit B-12) 1,000 mcg/mL injection solution RxNorm: 872986 Milliliter 07/31/2015 No longer Active cyanocobalamin (vit B-12) 1,000 mcg/mL injection solution RxNorm: 458220 Milliliter 06/05/2015 No longer Active cyanocobalamin (vit B-12) 1,000 mcg/mL injection solution RxNorm: 711016 Milliliter 05/01/2015 No longer Active cyanocobalamin (vit B-12) 1,000 mcg/mL injection solution RxNorm: 040760 Milliliter 04/03/2015 No longer Active cyanocobalamin (vit B-12) 1,000 mcg/mL injection solution RxNorm: 160541 Milliliter 02/28/2015 No longer Active cyanocobalamin (vit B-12) 1,000 mcg/mL injection solution RxNorm: 064810 Milliliter 01/30/2015 No longer Active cyanocobalamin (vit B-12) 1,000 mcg/mL injection solution RxNorm: 869693 1Milliliter 01/02/2015 No longer Active cyanocobalamin (vit B-12) 1,000 mcg/mL injection solution RxNorm: 263406 1Milliliter 11/28/2014 No longer Active cyanocobalamin (vit B-12) 1,000 mcg/mL injection solution RxNorm: 114111 Milliliter 10/31/2014 No longer Active cyanocobalamin (vit B-12) 1,000 mcg/mL injection solution RxNorm: 614926 1Milliliterdaily 10/03/2014 No longer Active cyanocobalamin (vit B-12) 1,000 mcg/mL injection solution RxNorm: 593454 Milliliter 08/30/2014 No longer Active cyanocobalamin (vit B-12) 1,000 mcg/mL injection solution RxNorm: 469618 Milliliter 08/02/2014 No longer Active cyanocobalamin (vit B-12) 1,000 mcg/mL injection kit RxNorm: 998988 Milliliter 07/04/2014 No longer Active cyanocobalamin (vit B-12) 1,000 mcg/mL injection solution RxNorm: 891179 Milliliter 05/30/2014 No longer Active cyanocobalamin (vit B-12) 1,000 mcg/mL injection solution RxNorm: 438513 Milliliter 05/02/2014 No longer Active cyanocobalamin (vit B-12) 1,000 mcg/mL injection solution RxNorm: 211933 Milliliter 04/05/2014 No longer Active cyanocobalamin (vit B-12) 1,000 mcg/mL injection solution RxNorm: 236990 Milliliter 03/07/2014 No longer Active cyanocobalamin (vit B-12) 1,000 mcg/mL injection solution RxNorm: 425336 1Milliliter 02/01/2014 No longer Active cyanocobalamin (vit B-12) 1,000 mcg/mL injection solution RxNorm: 220396 1Milliliter 12/30/2013 No longer Active cyanocobalamin (vit B-12) 1,000 mcg/mL injection solution RxNorm: 294025 Milliliter 11/30/2013 No longer Active cyanocobalamin (vit B-12) 1,000 mcg/mL injection solution RxNorm: 781204 1Milliliter 11/02/2013 No longer Active Vitamin B-12 1,000 mcg/mL injection solution RxNorm: 727544 Milliliter 08/31/2013 No longer Active Vitamin B-12 1,000 mcg/mL injection solution RxNorm: 663230 1Milliliter 08/04/2013 No longer Active Vitamin B-12 1,000 mcg/mL injection solution RxNorm: 997026 Milliliter 07/06/2013 No longer Active cyanocobalamin (vit B-12) 1,000 mcg/mL injection solution RxNorm: 315833 Milliliter 05/31/2013 No longer Active cyanocobalamin (vit B-12) 1,000 mcg/mL injection kit RxNorm: 996113 Milliliter 05/04/2013 No longer Active cyanocobalamin (vitamin B-12) 1,000 mcg/mL Injection RxNorm: 373602 Milliliter 03/30/2013 No longer Active cyanocobalamin (vitamin B-12) 1,000 mcg/mL Injection RxNorm: 608278 Milliliter 02/02/2013 No longer Active cyanocobalamin (vitamin B-12) 1,000 mcg/mL Injection RxNorm: 468100 Milliliter 12/29/2012 No longer Active cyanocobalamin (vitamin B-12) 1,000 mcg/mL Injection RxNorm: 841760 Milliliter 12/01/2012 No longer Active Vitamin B-12 1,000 mcg tablet RxNorm: 893777 Tablet 11/03/2012 No longer Active Vitamin B-12 1,000 mcg/mL Injection RxNorm: 407611 1Milliliter 09/30/2012 No longer Active Vitamin B-12 1,000 mcg/mL Injection RxNorm: 361861 1Milliliter 09/08/2012 No longer Active cyanocobalamin (vitamin B-12) 1,000 mcg/mL Injection RxNorm: 952086 1Milliliter 08/25/2012 No longer Active cyanocobalamin (vitamin B-12) 1,000 mcg/mL Injection RxNorm: 045594 1Milliliter 08/11/2012 No longer Active cyanocobalamin (vitamin B-12) 1,000 mcg/mL Injection RxNorm: 732678 1Milliliter 07/21/2012 No longer Active Vitamin B-12 1,000 mcg/mL Injection RxNorm: 000824 Milliliter 07/07/2012 No longer Active cyanocobalamin (vitamin B-12) 1,000 mcg/mL Injection RxNorm: 876626 1Milliliter 06/25/2012 No longer Active Vitamin B-12 1,000 mcg/mL Injection RxNorm: 920360 1Milliliter 06/09/2012 No longer Active Vitamin B-12 1,000 mcg/mL Injection RxNorm: 484071 Milliliter 05/25/2012 No longer Active Vitamin B-12 1,000 mcg/mL Injection RxNorm: 321694 Milliliter 05/12/2012 No longer Active Vitamin B-12 1,000 mcg/mL Injection RxNorm: 805717 Milliliter 04/20/2012 No longer Active Vitamin B-12 1,000 mcg/mL Injection RxNorm: 426140 Milliliter 04/07/2012 No longer Active Vitamin B-12 1,000 mcg/mL Injection RxNorm: 781575 Milliliter 03/10/2012 No longer Active Vitamin B-12 1,000 mcg/mL Injection RxNorm: 444690 Milliliter 02/18/2012 No longer Active Vitamin B-12 1,000 mcg/mL Injection RxNorm: 787650 Milliliter 02/04/2012 No longer Active Vitamin B-12 1,000 mcg/mL Injection RxNorm: 260056 Milliliter 01/21/2012 No longer Active Vitamin B-12 1,000 mcg/mL Injection RxNorm: 382677 Milliliter 01/07/2012 No longer Active Vitamin B-12 1,000 mcg/mL Injection RxNorm: 870200 Milliliter 12/17/2011 No longer Active Immunizations Vaccine [...] Code Item Item Code Result Date B12 [id number] B12 637.00 pg/ml 07/31/2015 FOLIC ACID 6847937 FOLIC ACID >24.0 NG/ML 08/25/2012 VIT B 12 9801470 VIT B 12 1591 PG/ML 08/25/2012 HOMOCYS 0593516 HOMOCYS 6.8 UMOL/L 08/25/2012 TSH 0245563 TSH 1.386 uIU/ML 07/07/2012 CBC 5065989 WBC 6.4 10e9/L 07/07/2012 CBC 5702607 RBC 4.92 10e12/L 07/07/2012 CBC 3294440 HGB 15.0 g/dL 07/07/2012 CBC 5054966 HCT DET 43.3 % 07/07/2012 CBC 2437046 MCV 88.0 fL 07/07/2012 CBC 7792306 MCH 30.5 pg 07/07/2012 CBC 3954651 MCHC 34.6 g/dL 07/07/2012 CBC 4491662 PLT 180 10e9/L 07/07/2012 CBC 3732212 MPV 10.0 fL 07/07/2012 CBC 0374988 KENRICK % 59.0 % 07/07/2012 CBC 4273381 LY % 24.1 % 07/07/2012 CBC 9492115 MON % 12.5 % 07/07/2012 CBC 6973881 EOS % 4.1 % 07/07/2012 CBC 9679294 BASO % 0.3 % 07/07/2012 CBC 3835388 RDW 13.4 % 07/07/2012 CBC 0137230 ABS KENRICK 3.78 10e9/L 07/07/2012 CBC 4430359 ABS LYMPH 1.54 10e9/L 07/07/2012 CBC 9616527 ABS MONO 0.80 10e9/L 07/07/2012 CBC 7018982 ABS EOS 0.26 10e9/L 07/07/2012 CBC 7832762 ABS BASO 0.02 10e9/L 07/07/2012 CBC 7371784 RDW-SD 42.9 fL 07/07/2012 CHEM 14 4323435 AST 29 U/L 07/07/2012 CHEM 14 3227182 ALT 29 U/L 07/07/2012 CHEM 14 3532644 BUN 9 MG/DL 07/07/2012 CHEM 14 9353316 ALBUMIN 4.1 GM/DL 07/07/2012 CHEM 14 9831955 CHLORIDE 103 MMOL/L 07/07/2012 CHEM 14 3653739 BILI TOT 0.3 MG/DL 07/07/2012 CHEM 14 5524787 ALK PHOS 88 U/L 07/07/2012 CHEM 14 5165720 SODIUM 141 MMOL/L 07/07/2012 CHEM 14 3050330 CREATININE 1.38 MG/DL 07/07/2012 CHEM 14 0784239 CALCIUM 9.3 MG/DL 07/07/2012 CHEM 14 5649004 POTASSIUM 3.7 MMOL/L 07/07/2012 CHEM 14 3397756 PROT TOT 6.4 GM/DL 07/07/2012 CHEM 14 7094514 GLUCOSE 76 MG/DL 07/07/2012 CHEM 14 0854165 BICARB 28 MMOL/L 07/07/2012 CHEM 14 2165828 ANION GAP 10 MMOL/L 07/07/2012 GFR CALC 1663126 GFR AA >60 ML/MIN 07/07/2012 GFR CALC 7399702 GFR NON-AA 52.0L ML/MIN 07/07/2012 B12 FOLAT 0119433 VIT B 12 211 PG/ML 12/10/2011 B12 FOLAT 2908485 FOLIC ACID 3.9 NG/ML 12/10/2011 GFR CALC 9997715 GFR AA >60 ML/MIN 12/10/2011 GFR CALC 2196225 GFR NON-AA >60 ML/MIN 12/10/2011 CPK 1478834 CPK 135 U/L 12/10/2011 CHEM 14 4842951 AST 62 U/L 12/10/2011 CHEM 14 5575007 ALT 114 U/L 12/10/2011 CHEM 14 8485508 BUN 10 MG/DL 12/10/2011 CHEM 14 9633034 ALBUMIN 3.7 GM/DL 12/10/2011 CHEM 14 3956387 CHLORIDE 103 MMOL/L 12/10/2011 CHEM 14 4846552 BILI TOT 0.5 MG/DL 12/10/2011 CHEM 14 9051753 ALK PHOS 129 U/L 12/10/2011 CHEM 14 4218258 SODIUM 140 MMOL/L 12/10/2011 CHEM 14 8779994 CREATININE 1.17 MG/DL 12/10/2011 CHEM 14 6841273 CALCIUM 8.8 MG/DL 12/10/2011 CHEM 14 7049730 POTASSIUM 3.4 MMOL/L 12/10/2011 CHEM 14 0305976 PROT TOT 5.8 GM/DL 12/10/2011 CHEM 14 0141851 GLUCOSE 84 MG/DL 12/10/2011 CHEM 14 2797743 BICARB 26 MMOL/L 12/10/2011 CHEM 14 4224229 ANION GAP 11 MMOL/L 12/10/2011 URINALYSIS NONAUTO W/O SCOPE 06760 Specific [place] 1.005 DateTime(Free Text in Aprima) URINALYSIS NONAUTO W/O SCOPE 03509 PH 6 DateTime(Free Text in Aprima) URINALYSIS NONAUTO W/O SCOPE 42806 GLUCOSE neg DateTime(Free Text in Aprima) URINALYSIS NONAUTO W/O SCOPE 97808 Protein neg DateTime(Free Text in Aprima) URINALYSIS NONAUTO W/O SCOPE 21038 Blood neg DateTime(Free Text in Aprima) URINALYSIS NONAUTO W/O SCOPE 42247 Bilirubin neg DateTime(Free Text in Aprima) URINALYSIS NONAUTO W/O SCOPE 68336 Ketones neg DateTime(Free Text in Aprima) URINALYSIS NONAUTO W/O SCOPE 34236 Urobilinogen neg DateTime(Free Text in Aprima) URINALYSIS NONAUTO W/O SCOPE 18143 Nitrite neg DateTime(Free Text in Aprima) URINALYSIS NONAUTO W/O SCOPE 13889 Leukocytes neg DateTime(Free Text in Aprima) URINALYSIS NONAUTO W/O SCOPE 44087 Specific [place] 1.010 DateTime(Free Text in Aprima) URINALYSIS NONAUTO W/O SCOPE 51921 PH 6.5 DateTime(Free Text in Aprima) URINALYSIS NONAUTO W/O SCOPE 93748 GLUCOSE neg DateTime(Free Text in Aprima) URINALYSIS NONAUTO W/O SCOPE 86973 Protein neg DateTime(Free Text in Aprima) URINALYSIS NONAUTO W/O SCOPE 66627 Blood neg DateTime(Free Text in Aprima) URINALYSIS NONAUTO W/O SCOPE 74768 Bilirubin neg DateTime(Free Text in Aprima) URINALYSIS NONAUTO W/O SCOPE 48321 Ketones neg DateTime(Free Text in Aprima) URINALYSIS NONAUTO W/O SCOPE 71792 Urobilinogen neg DateTime(Free Text in Aprima) URINALYSIS NONAUTO W/O SCOPE 94323 Nitrite neg DateTime(Free Text in Aprima) URINALYSIS NONAUTO W/O SCOPE 38569 Leukocytes neg DateTime(Free Text in ) Review [...] three words at five minutes 01/16/2015 [facility] exam points Full Exam - General [...] three words at five minutes 03/02/2013 [facility] exam points Full Exam - Dermatology [...] three words at five minutes 07/07/2012 [facility] exam points Full Exam - General [...] three words at five minutes 01/07/2012 [facility] exam points Full Exam - General [...] three words at five minutes 12/17/2011 [facility] exam points 13/30 Full Exam - General [...] words at five minutes 12/10/2011 [facility] exam points Full [...] three words at five minutes 11/26/2011 [facility] exam points Procedures Procedure Codes Date THER/PROPH/DIAG INJ SC/IM CPT-4: 35871 08/04/2017 VITAMIN B12 INJECTION CPT- 4: J3420 08/04/2017 THER/PROPH/DIAG INJ SC/IM CPT-4: 66780 07/01/2017 VITAMIN B12 INJECTION CPT- 4: J3420 07/01/2017 THER/PROPH/DIAG INJ SC/IM CPT-4: 72141 05/30/2017 VITAMIN B12 INJECTION CPT- 4: J3420 05/30/2017 THER/PROPH/DIAG INJ SC/IM CPT-4: 85764 2017 ADMIN INFLUENZA VIRUS VAC CPT-4: G0008 2017 TOBACCO-USE WIC SITE COORDINATOR 3-[address]: 574697472 CPT-4: G0436 2017 VITAMIN B12 INJECTION CPT- 4: J3420 2017 FLU VACC PRSV FREE INC ANTIG CPT-4: 71120 2017 TOBACCO-USE WIC SITE COORDINATOR 3-[address]: 108850282 CPT-4: G0436 03/31/2017 VITAMIN B12 INJECTION CPT- 4: J3420 03/31/2017 THER/PROPH/DIAG INJ SC/IM CPT-4: 95411 02/28/2017 VITAMIN B12 INJECTION CPT- 4: J3420 02/28/2017 THER/PROPH/DIAG INJ SC/IM CPT-4: 03649 02/03/2017 VITAMIN B12 INJECTION CPT- 4: J3420 02/03/2017 TOBACCO-USE WIC SITE COORDINATOR 3-[address]: 731715448 CPT-4: G0436 12/30/2016 THER/PROPH/DIAG INJ SC/IM CPT-4: 31137 12/30/2016 VITAMIN B12 INJECTION CPT- 4: J3420 12/30/2016 THER/PROPH/DIAG INJ SC/IM CPT-4: 30889 12/02/2016 VITAMIN B12 INJECTION CPT- 4: J3420 12/02/2016 THER/PROPH/DIAG INJ SC/IM CPT-4: 36897 10/29/2016 VITAMIN B12 INJECTION CPT- 4: J3420 10/29/2016 THER/PROPH/DIAG INJ SC/IM CPT-4: 20605 10/01/2016 VITAMIN B12 INJECTION CPT- 4: J3420 10/01/2016 TOBACCO-USE WIC SITE COORDINATOR 3-[address]: 007054855 CPT-4: G0436 09/02/2016 VITAMIN B12 INJECTION CPT- 4: J3420 09/02/2016 THER/PROPH/DIAG INJ SC/IM CPT-4: 68002 09/02/2016 THER/PROPH/DIAG INJ SC/IM CPT-4: 94898 08/05/2016 VITAMIN B12 INJECTION CPT- 4: J3420 08/05/2016 THER/PROPH/DIAG INJ SC/IM CPT-4: 65191 07/02/2016 VITAMIN B12 INJECTION CPT- 4: J3420 07/02/2016 VITAMIN B12 INJECTION CPT- 4: J3420 06/03/2016 THER/PROPH/DIAG INJ SC/IM CPT-4: 44715 06/03/2016 THER/PROPH/DIAG INJ SC/IM CPT-4: 61569 2016 VITAMIN B12 INJECTION CPT- 4: J3420 2016 THER/PROPH/DIAG INJ SC/IM CPT-4: 11149 04/01/2016 VITAMIN B12 INJECTION CPT- 4: J3420 04/01/2016 VITAMIN B12 INJECTION CPT- 4: J3420 03/05/2016 THER/PROPH/DIAG INJ SC/IM CPT-4: 33423 03/05/2016 TOBACCO-USE WIC SITE COORDINATOR 3-[address]: 247443295 CPT-4: G0436 01/29/2016 THER/PROPH/DIAG INJ SC/IM CPT-4: 84194 01/29/2016 VITAMIN B12 INJECTION CPT- 4: J3420 01/29/2016 THER/PROPH/DIAG INJ SC/IM CPT-4: 58568 01/02/2016 VITAMIN B12 INJECTION CPT- 4: J3420 01/02/2016 VITAMIN B12 INJECTION CPT- 4: J3420 12/04/2015 THER/PROPH/DIAG INJ SC/IM CPT-4: 32781 12/04/2015 THER/PROPH/DIAG INJ SC/IM CPT-4: 52266 10/30/2015 VITAMIN B12 INJECTION CPT- 4: J3420 10/30/2015 PPPS, SUBSEQ VISIT CPT- 4: G0439 10/11/2015 TOBACCO-USE WIC SITE COORDINATOR 3-[address]: 956733461 CPT-4: G0436 10/11/2015 TOBACCO-USE WIC SITE COORDINATOR 3-[address]: 825958523 CPT-4: G0436 10/02/2015 THER/PROPH/DIAG INJ SC/IM CPT-4: 05081 10/02/2015 VITAMIN B12 INJECTION CPT- 4: J3420 10/02/2015 THER/PROPH/DIAG INJ SC/IM CPT-4: 73696 08/29/2015 VITAMIN B12 INJECTION CPT- 4: J3420 08/29/2015 THER/PROPH/DIAG INJ SC/IM CPT-4: 38919 07/31/2015 VITAMIN B12 INJECTION CPT- 4: J3420 07/31/2015 THER/PROPH/DIAG INJ SC/IM CPT-4: 62313 07/03/2015 VITAMIN B12 INJECTION CPT- 4: J3420 07/03/2015 THER/PROPH/DIAG INJ SC/IM CPT-4: 93738 06/05/2015 VITAMIN B12 INJECTION CPT- 4: J3420 06/05/2015 VITAMIN B12 INJECTION CPT- 4: J3420 05/01/2015 THER/PROPH/DIAG INJ SC/IM CPT-4: 42771 05/01/2015 THER/PROPH/DIAG INJ SC/IM CPT-4: 06407 04/03/2015 VITAMIN B12 INJECTION CPT- 4: J3420 04/03/2015 THER/PROPH/DIAG INJ SC/IM CPT-4: 54265 02/28/2015 VITAMIN B12 INJECTION CPT- 4: J3420 02/28/2015 THER/PROPH/DIAG INJ SC/IM CPT-4: 35529 01/30/2015 VITAMIN B12 INJECTION CPT- 4: J3420 01/30/2015 VITAMIN B12 INJECTION CPT- 4: J3420 01/02/2015 THER/PROPH/DIAG INJ SC/IM CPT-4: 92717 01/02/2015 THER/PROPH/DIAG INJ SC/IM CPT-4: 01593 11/28/2014 VITAMIN B12 INJECTION CPT- 4: J3420 11/28/2014 THER/PROPH/DIAG INJ SC/IM CPT-4: 87691 10/31/2014 VITAMIN B12 INJECTION CPT- 4: J3420 10/31/2014 THER/PROPH/DIAG INJ SC/IM CPT-4: 89130 10/03/2014 VITAMIN B12 INJECTION CPT- 4: J3420 10/03/2014 THER/PROPH/DIAG INJ SC/IM CPT-4: 41087 08/30/2014 VITAMIN B12 INJECTION CPT- 4: J3420 08/30/2014 THER/PROPH/DIAG INJ SC/IM CPT-4: 48443 08/02/2014 VITAMIN B12 INJECTION CPT- 4: J3420 08/02/2014 THER/PROPH/DIAG INJ SC/IM CPT-4: 89852 07/04/2014 VITAMIN B12 INJECTION CPT- 4: J3420 07/04/2014 THER/PROPH/DIAG INJ SC/IM CPT-4: 86154 05/30/2014 VITAMIN B12 INJECTION CPT- 4: J3420 05/30/2014 THER/PROPH/DIAG INJ SC/IM CPT-4: 11067 05/02/2014 VITAMIN B12 INJECTION CPT- 4: J3420 05/02/2014 THER/PROPH/DIAG INJ SC/IM CPT-4: 13332 04/05/2014 THER/PROPH/DIAG INJ SC/IM CPT-4: 82614 03/07/2014 VITAMIN B12 INJECTION CPT- 4: J3420 03/07/2014 THER/PROPH/DIAG INJ SC/IM CPT-4: 32805 02/01/2014 VITAMIN B12 INJECTION CPT- 4: J3420 02/01/2014 VITAMIN B12 INJECTION CPT- 4: J3420 12/30/2013 THER/PROPH/DIAG INJ SC/IM CPT-4: 54255 12/30/2013 THER/PROPH/DIAG INJ SC/IM CPT-4: 93945 11/30/2013 VITAMIN B12 INJECTION CPT- 4: J3420 11/30/2013 THER/PROPH/DIAG INJ SC/IM CPT-4: 18457 11/02/2013 VITAMIN B12 INJECTION CPT- 4: J3420 11/02/2013 THER/PROPH/DIAG INJ SC/IM CPT-4: 36332 08/31/2013 VITAMIN B12 INJECTION CPT- 4: J3420 08/31/2013 THER/PROPH/DIAG INJ SC/IM CPT-4: 04006 08/04/2013 VITAMIN B12 INJECTION CPT- 4: J3420 08/04/2013 VITAMIN B12 INJECTION CPT- 4: J3420 07/06/2013 THER/PROPH/DIAG INJ SC/IM CPT-4: 22643 07/06/2013 THER/PROPH/DIAG INJ SC/IM CPT-4: 60704 05/31/2013 VITAMIN B12 INJECTION CPT- 4: J3420 05/31/2013 ADMIN INFLUENZA VIRUS VAC CPT-4: G0008 05/04/2013 FLULAVAL VACC, 3 YRS & >, IM CPT-4: Q2036 05/04/2013 THER/PROPH/DIAG INJ SC/IM CPT-4: 02524 05/04/2013 VITAMIN B12 INJECTION CPT- 4: J3420 05/04/2013 THER/PROPH/DIAG INJ SC/IM CPT-4: 90046 03/30/2013 VITAMIN B12 INJECTION CPT- 4: J3420 03/30/2013 THER/PROPH/DIAG INJ SC/IM CPT-4: 67189 03/02/2013 VITAMIN B12 INJECTION CPT- 4: J3420 03/02/2013 13459 EST. PATIENT, LEVEL IV CPT-4: 81900 03/02/2013 THER/PROPH/DIAG INJ SC/IM CPT-4: 21635 02/02/2013 VITAMIN B12 INJECTION CPT- 4: J3420 02/02/2013 THER/PROPH/DIAG INJ SC/IM CPT-4: 68960 12/29/2012 VITAMIN B12 INJECTION CPT- 4: J3420 12/29/2012 TRIAMCINOLONE ACET INJ NOS CPT-4: J3301 12/01/2012 VITAMIN B12 INJECTION CPT- 4: J3420 12/01/2012 VITAMIN B12 INJECTION CPT- 4: J3420 11/03/2012 THER/PROPH/DIAG INJ SC/IM CPT-4: 90650 11/03/2012 THER/PROPH/DIAG INJ SC/IM CPT-4: 51625 09/30/2012 VITAMIN B12 INJECTION CPT- 4: J3420 09/30/2012 PRESCRIP TRANSMIT VIA ERX SY CPT-4: G8553 09/30/2012 VITAMIN B12 INJECTION CPT- 4: J3420 09/08/2012 THER/PROPH/DIAG INJ SC/IM CPT-4: 21131 09/08/2012 THER/PROPH/DIAG INJ SC/IM CPT-4: 54887 08/25/2012 ROUTINE VENIPUNCTURE CPT- 4: 88816 08/25/2012 VITAMIN B12 INJECTION CPT- 4: J3420 08/25/2012 THER/PROPH/DIAG INJ SC/IM CPT-4: 81352 08/11/2012 VITAMIN B12 INJECTION CPT- 4: J3420 08/11/2012 VITAMIN B12 INJECTION CPT- 4: J3420 07/21/2012 THER/PROPH/DIAG INJ SC/IM CPT-4: 81533 07/21/2012 THER/PROPH/DIAG INJ SC/IM CPT-4: 84399 07/07/2012 VITAMIN B12 INJECTION CPT- 4: J3420 07/07/2012 ROUTINE VENIPUNCTURE CPT- 4: 87236 07/07/2012 VITAMIN B12 INJECTION CPT- 4: J3420 06/25/2012 THER/PROPH/DIAG INJ SC/IM CPT-4: 38715 06/25/2012 VITAMIN B12 INJECTION CPT- 4: J3420 06/09/2012 THER/PROPH/DIAG INJ SC/IM CPT-4: 07824 06/09/2012 VITAMIN B12 INJECTION CPT- 4: J3420 05/25/2012 THER/PROPH/DIAG INJ SC/IM CPT-4: 69197 05/25/2012 VITAMIN B12 INJECTION CPT- 4: J3420 05/12/2012 THER/PROPH/DIAG INJ SC/IM CPT-4: 06589 05/12/2012 VITAMIN B12 INJECTION CPT- 4: J3420 04/20/2012 THER/PROPH/DIAG INJ SC/IM CPT-4: 56795 04/20/2012 THER/PROPH/DIAG INJ SC/IM CPT-4: 86315 04/07/2012 VITAMIN B12 INJECTION CPT- 4: J3420 04/07/2012 VITAMIN B12 INJECTION CPT- 4: J3420 03/10/2012 THER/PROPH/DIAG INJ SC/IM CPT-4: 03089 03/10/2012 VITAMIN B12 INJECTION CPT- 4: J3420 02/18/2012 THER/PROPH/DIAG INJ SC/IM CPT-4: 91708 02/18/2012 THER/PROPH/DIAG INJ SC/IM CPT-4: 02153 02/04/2012 VITAMIN B12 INJECTION CPT- 4: J3420 02/04/2012 THER/PROPH/DIAG INJ SC/IM CPT-4: 49784 01/21/2012 VITAMIN B12 INJECTION CPT- 4: J3420 01/21/2012 VITAMIN B12 INJECTION CPT- 4: J3420 01/07/2012 VITAMIN B12 INJECTION CPT- 4: J3420 12/17/2011 URINALYSIS NONAUTO W/O SCOPE CPT-4: 95741 12/10/2011 ROUTINE VENIPUNCTURE CPT- 4: 22805 12/10/2011 URINALYSIS NONAUTO W/O SCOPE CPT-4: 99259 11/26/2011 Vital Signs Date Vital 12/18/2015 Blood Pressure 1: 140/68 Code: 8480-6 BMI: 25.7 Code: 94977-8 Heart Rate 1: 83 bpm Height: 5'7" SpO2: 95% Weight: 164 lbs 10/11/2015 Blood Pressure 1: 128/80 Code: 8480-6 BMI: 26.0 Code: 83040-8 Heart Rate 1: 80 bpm Height: 5'7" SpO2: 97% Waist Measure (cm): 89 cm Weight: 166 lbs 01/16/2015 Blood Pressure 1: 122/84 Code: 8480-6 BMI: 25.7 Code: 50458-1 Heart Rate 1: 68 bpm Height: 5'7" SpO2: 95% Weight: 164 lbs 08/02/2014 Blood Pressure 1: 140/86 Code: 8480-6 BMI: 25.1 Code: 15686-3 Heart Rate 1: 64 bpm Height: 5'7" Weight: 160 lbs 03/02/2013 Blood Pressure 1: 108/74 Code: 8480-6 BMI: 28.3 Code: 38955-5 Heart Rate 1: 80 bpm Height: 5'7" Weight: 181 lbs 09/30/2012 Blood Pressure 1: 126/74 Code: 8480-6 Heart Rate 1: 64 bpm Weight: 07/07/2012 Blood Pressure 1: 130/84 Code: 8480-6 BMI: 26.6 Code: 29145-5 Heart Rate 1: 80 bpm Height: 5'7" [...] 1: 110/68 Code: 8480-6 BMI: 25.7 Code: 60663-9 Heart Rate 1: 68 bpm Height: 5'7" [...] data Encounters Encounter Performer Location Codes Date 30834 EST. PATIENT, LEVEL III Diagnosis: Encounter for follow-up examination after completed treatment for conditions other than malignant neoplasm[ICD10: Z09] [facility] CPT-4: 38544 12/18/2015 24602 EST. PATIENT, LEVEL IV Diagnosis: Cellulitis of right lower limb[ICD10: L03.115] Diagnosis: Vitamin B12 deficiency anemia due to intrinsic factor deficiency[ICD10: D51.0] [facility] CPT-4: 14763 12/04/2015 ([id number]) Miscellaneous no charge Diagnosis: Vitamin B deficiency, unspecified[ICD10: E53.9] [facility] CPT-4: 85559 07/31/2015 ([id number]) 82764 EST. PATIENT, LEVEL IV Diagnosis: Schizophrenia[ICD9: 295.90] Diagnosis: DEPRESSIVE DISORDER NEC[ICD9: 311] Diagnosis: Medication dose changed[ICD9: V58.69] Diagnosis: Leg pain[ICD9: 729.5] Loren Vitale MD, [facility] CPT-4: 25243 01/16/2015 ([id number]) 26251 EST. PATIENT, LEVEL III Diagnosis: Rash[ICD9: 782.1] Camille Vitale MD, [facility] CPT-4: 28457 08/02/2014 ([id number]) Miscellaneous no charge Diagnosis: SCHIZO NOS, CHRN[ICD9: 295.92] Loren Vitale MD, [facility] CPT-4: 76727 05/03/2013 ([id number]) 31455 EST. PATIENT, LEVEL III Diagnosis: Rash[ICD9: 782.1] Diagnosis: B-COMPLEX DEFIC NEC[ICD9: 266.2] Loren Vitale MD, [facility] CPT-4: 43298 09/30/2012 ([id number]) 29091 EST. PATIENT, LEVEL IV Diagnosis: SCHIZO NOS, CHRN[ICD9: 295.92] Diagnosis: DEMEN NOS W/O BEHV DSTRB[ICD9: 294.20] Loren Vitale MD, [facility] CPT-4: 77439 07/07/2012 ([id number]) 76108 EST. PATIENT, LEVEL IV Diagnosis: DEMEN NOS W/O BEHV DSTRB[ICD9: 294.20] Diagnosis: SCHIZO NOS, CHRN[ICD9: 295.92] Diagnosis: Vitamin B 12 deficiency[ICD9: 266.2] Loren Vitale MD, [facility] CPT- 4: 55276 01/07/2012 ([id number]) 92736 EST. PATIENT, LEVEL IV Diagnosis: DEMEN NOS W/O BEHV DSTRB[ICD9: 294.20] Diagnosis: ALTERED MENTAL STATUS[ICD9: 780.97] Diagnosis: Myalgia[ICD9: 729.1] Loren Vitale MD, [facility] CPT-4: 58026 12/17/2011 ([id number]) 55956 EST. PATIENT, LEVEL IV Diagnosis: Orthostatic hypotension[ICD9: 458.0] Diagnosis: Hypokalemia[ICD9: 276.8] Diagnosis: DEMEN NOS W/O BEHV DSTRB[ICD9: 294.20] Diagnosis: SCHIZO NOS, CHRN[ICD9: 295.92] Diagnosis: ALTERED MENTAL STATUS[ICD9: 780.97] [facility] CPT-4: 49602 12/10/2011 OFFICE/OUTPATIENT VISIT NEW Diagnosis: Schizophrenia, chronic condition[ICD9: 295.92] Diagnosis: Encounter for long-term (current) use of other high-risk medications[ICD9: V58.69] [facility] CPT-4: 91803 11/26/2011 Plan of Care Planned Activity Notes Codes Status Date Appointment: Injection 08/04/2017 Patient Education: Patient Medication [...] Education: Smoking and Tobacco Addiction Completed 01/02/2016 [phone] [facility] ([facility]) Complex 12/18/2015 Patient Education: Patient Medication Summary Completed 12/18/2015 Patient Education: Smoking and Tobacco Addiction Completed 12/18/2015 Appointment: [phone] [facility] [place] (10 min) Simple 12/04/2015 Patient Education: Patient Medication Summary Completed 12/04/2015 Patient Education: Smoking and Tobacco Addiction Completed 12/04/2015 Appointment: Injection 10/30/2015 Patient Education: Patient Medication Summary Completed 10/30/2015 Patient Education: Smoking and Tobacco Addiction Completed 10/30/2015 Appointment: [facility] - Annual Wellness Visit 10/11/2015 Patient Education: [...] Patient Education: Patient Medication Summary Completed 01/30/2015 Appointment: Loren Vitale WPtel: [facility] [place] (15 min) Moderate 01/16/2015 Patient Education: Patient Medication Summary Completed 01/16/2015 Appointment: Injection 01/02/2015 Patient Education: Patient Medication Summary Completed 01/02/2015 Patient Education: Patient Medication Summary Completed 11/28/2014 Patient Education: Patient Medication Summary Completed 10/31/2014 Patient Education: Patient Medication Summary Completed 10/03/2014 Patient Education: Patient Medication Summary Completed 08/30/2014 Appointment: Camille Devi WPtel: [facility] [phone] [place] Sick 08/02/2014 Patient Education: Patient Medication Summary Completed 08/02/2014 Patient Education: Patient Medication Summary Completed 07/04/2014 Patient Education: Patient Medication Summary Completed 05/30/2014 Appointment: Loren Vitale WPtel: [facility] [place] Injection 05/02/2014 Patient Education: Patient Medication Summary Completed 05/02/2014 Patient Education: Patient Medication Summary Completed 04/05/2014 Appointment: Camille Devi WPtel: [phone] [place] Injection 03/07/2014 Patient Education: Patient Medication Summary Completed 03/07/2014 Appointment: Loren Vitale WPtel: [phone] [facility] [place] Injection 02/01/2014 Patient Education: Patient Medication Summary Completed 02/01/2014 Appointment: Loren Vitale WPtel: [phone] [facility] [place] Injection 12/30/2013 Patient Education: Patient Medication Summary Completed 12/30/2013 Appointment: Loren Vitale WPtel: [phone] [facility] [place] Injection 11/30/2013 Patient Education: Patient Medication Summary Completed 11/30/2013 App[facility]ment: [phone] [phone] [place] Injection 11/02/2013 Patient Education: Patient Medication Summary Completed 11/02/2013 Appointment: Loren Vitale WPtel: [phone] [facility] [place] Injection 09/28/2013 Appointment: Loren Vitale WPtel: [phone] [facility] [place] Injection 08/31/2013 Patient Education: Patient Medication Summary Completed 08/31/2013 Patient Education: Patient Medication Summary Completed 08/04/2013 Appointment: Loren Vitale WPtel: [phone] [facility] [place] Injection 08/03/2013 Appointment: Loren Vitale WPtel: [phone] [facility] [place] Injection 07/06/2013 Patient Education: Patient Medication Summary Completed 07/06/2013 Appointment: [facility] [phone] [phone] [place] Injection 05/31/2013 Patient Education: Patient Medication Summary Completed 05/31/2013 Appointment: Camille Devi WPtel: [phone] [phone] [place] Injection 05/04/2013 Patient Education: Patient Medication Summary Completed 05/04/2013 Appointment: Loren Vitale WPtel: [phone] [facility] [place] Other 05/03/2013 Patient Education: Patient Medication Summary Completed 05/03/2013 Appointment: [facility] [phone] [phone] [place] Injection 03/30/2013 Patient Education: Patient Medication Summary Completed 03/30/2013 Appointment: Loren Vitale WPtel: [facility] [place] Follow up 03/02/2013 Patient Education: Patient Medication Summary Completed 03/02/2013 Appointment: Loren Vitale WPtel: [facility] [place] Injection 02/02/2013 Patient Education: Patient Medication Summary Completed 02/02/2013 Patient Education: Patient Medication Summary Completed 12/29/2012 Appointment: [facility] [phone] [phone] [place] Injection 12/01/2012 Patient Education: Patient Medication Summary Completed 12/01/2012 Appointment: Loren Vitale WPtel: [facility] [place] [place] Injection 11/03/2012 Patient Education: Patient Medication Summary Completed 11/03/2012 Appointment: Loren Vitale WPtel: [facility] [place] Other 09/30/2012 Patient Education: Patient Medication Summary Completed 09/30/2012 Patient Education: Patient Medication Summary Completed 09/08/2012 Appointment: [facility] [phone] [phone] [place] Injection 08/25/2012 Patient Education: Patient Medication Summary Completed 08/25/2012 Appointment: Loren Vitale WPtel: [facility] [place] [place] Injection 08/11/2012 Patient Education: Patient Medication Summary Completed 08/11/2012 Appointment: Loren Vitale WPtel: [phone] [facility] [place] Injection 07/21/2012 Patient Education: Patient Medication Summary Completed 07/21/2012 Appointment: Loren Vitale WPtel: [phone] [facility] [place] Follow up 07/07/2012 Patient Education: Patient Medication Summary Completed 07/07/2012 Patient Education: Patient Medication Summary Completed 06/25/2012 Patient Education: Patient Medication Summary Completed 06/09/2012 Patient Education: Patient Medication Summary Completed 05/25/2012 Appointment: Loren Vitale WPtel: [phone] [facility] [place] Injection 05/12/2012 Patient Education: Patient Medication Summary Completed 05/12/2012 Patient Education: Patient Medication Summary Completed 04/20/2012 Appointment: [facility] [phone] [phone] [place] Injection 04/07/2012 Patient Education: Patient Medication Summary Completed 04/07/2012 Appointment: [facility] [phone] [phone] [place] Injection 03/24/2012 Appointment: [facility] [phone] [phone] [place] Injection 03/10/2012 Patient Education: Patient Medication Summary Completed 03/10/2012 Appointment: Loren Vitlae WPtel: [phone] [facility] [place] Injection 02/18/2012 Patient Education: Patient Medication Summary Completed 02/18/2012 Appointment: Loren Vitale WPtel: [phone] [facility] [place] Injection 02/04/2012 Patient Education: Patient Medication Summary Completed 02/04/2012 Appointment: Loren Vitale WPtel: [facility] [place] Injection 01/21/2012 Patient Education: Patient Medication Summary Completed 01/21/2012 Appointment: Loren Vitale WPtel: [facility] Other 01/07/2012 Patient Education: Patient Medication Summary Completed 01/07/2012 Appointment: Loren Vitale WPtel: [facility] Other 12/17/2011 Patient Education: Patient Medication Summary Completed 12/17/2011 Appointment: Camille Devi WPtel: [facility] [phone] [facility]-in 12/10/2011 Patient Education: Patient Medication Summary Completed 12/10/2011 Appointment: Loren Vitale WPtel: [facility] [place] New Patient 11/26/2011 Patient Education: Patient Medication Summary Completed 11/26/2011 Instructions No Instructions
--- OUTSIDE RECORDS SUMMARY | 2018-12-22 16:16 | XMS REPORT | Continuity of Care Document ---
Author Organization Unknown Address Unknown Allergies Active Description Code Type Severity Reaction Onset Reported/Identified Relationship to Patient Clinical Status Yes No Known Drug Allergies [id number] Drug Allergy Unknown N/A 12/06/2018 Medications There is no data. 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 07/24/2012 MOSES REYNOSO DO V58.69 MEDICATION HIGH RISK 10/18/2014 Ot 295.90 10/18/2014 Ot 435.9 10/18/2014 Ot 780.93 11/18/2014 CYNDI KASPER, MOSES Ot 786.2 12/06/2018 CYNDI KASPER, MOSES Ot 786.2 COUGH 12/09/2018 FA[place]O BE[place] MD Ot E86.1 HYPOVOLEMIA 12/09/2018 [place]O [place] MD Ot E87.1 HYPO-OSMOLALITY AND HYPONATREMIA 12/09/2018 [place]O [place] MD Ot E87.6 HYPOKALEMIA 12/09/2018 [place]O [place] MD Ot F03.90 UNSPECIFIED DEMENTIA WITHOUT BEHAVIORAL 12/09/2018 [place]O [place] MD Ot F17.210 NICOTINE DEPENDENCE, CIGARETTES, UNCOMPL 12/09/2018 [place] MD Ot 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 12/09/2018 [place]O [place] MD Ot F32.9 MAJOR DEPRESSIVE DISORDER, SINGLE EPISOD 12/09/2018 [place]O [place] MD Ot F41.9 ANXIETY DISORDER, UNSPECIFIED 12/09/2018 [place] MD Ot J06.9 ACUTE UPPER RESPIRATORY INFECTION, UNSPE 12/09/2018 [place]O [place] MD Ot R40.0 SOMNOLENCE 12/09/2018 [place]O [place] MD Ot R79.82 ELEVATED C-REACTIVE PROTEIN (CRP) 12/09/2018 [place]O [place] MD Ot R79.89 OTHER SPECIFIED ABNORMAL FINDINGS OF BLO 12/09/2018 [place] MD Ot Z66 DO NOT RESUSCITATE 12/10/2018 [place] MD Ot E86.1 HYPOVOLEMIA 12/10/2018 [place] MD Ot E87.1 HYPO-OSMOLALITY AND HYPONATREMIA 12/10/2018 [place] MD Ot E87.6 HYPOKALEMIA 12/10/2018 [place] MD Ot F03.90 UNSPECIFIED DEMENTIA WITHOUT BEHAVIORAL 12/10/2018 [place] MD Ot F17.210 NICOTINE DEPENDENCE, CIGARETTES, UNCOMPL 12/10/2018 [place] MD Ot 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 12/10/2018 [place] MD Ot F32.9 MAJOR DEPRESSIVE DISORDER, SINGLE EPISOD 12/10/2018 [place] MD Ot F41.9 ANXIETY DISORDER, UNSPECIFIED 12/10/2018 [place] MD Ot J06.9 ACUTE UPPER RESPIRATORY INFECTION, UNSPE 12/10/2018 [place] MD Ot R40.0 SOMNOLENCE 12/10/2018 [place] MD Ot R79.82 ELEVATED C-REACTIVE PROTEIN (CRP) 12/10/2018 [place] MD Ot R79.89 OTHER SPECIFIED ABNORMAL FINDINGS OF BLO 12/10/2018 [place] MD Ot Z66 DO NOT RESUSCITATE 12/10/2018 [place] MD Ot E86.1 HYPOVOLEMIA 12/10/2018 [place] MD Ot E87.1 HYPO-OSMOLALITY AND HYPONATREMIA 12/10/2018 [place] MD Ot E87.6 HYPOKALEMIA 12/10/2018 [place] MD Ot F03.90 UNSPECIFIED DEMENTIA WITHOUT BEHAVIORAL 12/10/2018 [place] MD Ot F17.210 NICOTINE DEPENDENCE, CIGARETTES, UNCOMPL 12/10/2018 [place] MD Ot 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 12/10/2018 [place] MD Ot F32.9 MAJOR DEPRESSIVE DISORDER, SINGLE EPISOD 12/10/2018 [place] MD Ot F41.9 ANXIETY DISORDER, UNSPECIFIED 12/10/2018 [place] MD Ot I10 ESSENTIAL (PRIMARY) HYPERTENSION 12/10/2018 [place] MD Ot J06.9 ACUTE UPPER RESPIRATORY INFECTION, UNSPE 12/10/2018 [place] MD Ot M62.82 RHABDOMYOLYSIS 12/10/2018 [place] MD Ot R26.81 UNSTEADINESS ON FEET 12/10/2018 [place] MD Ot R40.0 SOMNOLENCE 12/10/2018 [place] MD Ot R53.1 WEAKNESS 12/10/2018 [place] MD Ot R79.82 ELEVATED C-REACTIVE PROTEIN (CRP) 12/10/2018 [place] MD Ot R79.89 OTHER SPECIFIED ABNORMAL FINDINGS OF BLO 12/10/2018 [place] MD Ot Z66 DO NOT RESUSCITATE 12/10/2018 [place] MD Ot Z91.81 HISTORY OF FALLING Procedures Code [place] [address] FOLATE 08/27/2012 30407 VIT B 12 08/27/2012 69533 HOMOCYSTINE 08/27/2012 28770 ROUTINE VENIPUNCTURE 03/04/2013 01699 GLUCOSE 03/04/2013 81144 LIPID PANEL 03/04/2013 Results Test Result Range Complete blood count (CBC) with automated white blood cell (WBC) differential - 12/06/18 09:21 Blood leukocytes automated count (number/volume) 7.9 10*3/uL 4.3-11.0 Blood erythrocytes automated count (number/volume) 5.01 10*6/uL 4.35-5.85 Venous blood hemoglobin measurement (mass/volume) 15.2 g/dL 13.3-17.7 Blood hematocrit (volume fraction) 44 % 40-54 Automated erythrocyte mean corpuscular volume 88 [foz_us] 80-99 Automated erythrocyte mean corpuscular hemoglobin (mass per erythrocyte) 30 pg 25-34 Automated erythrocyte mean corpuscular hemoglobin concentration measurement (mass/volume) 35 g/dL 32-36 Automated erythrocyte distribution width ratio 12.7 % 10.0- 14.5 Automated blood platelet count (count/volume) 193 10*3/uL 130-400 Automated blood platelet mean volume measurement 9.2 [foz_us] 7.4-10.4 Automated blood neutrophils/100 leukocytes 74 % 42-75 Automated blood lymphocytes/100 leukocytes 10 % 12-44 Blood monocytes/100 leukocytes 16 % 0-12 Automated blood eosinophils/100 leukocytes 0 % 0-10 Automated blood basophils/100 leukocytes 0 % 0-10 Blood neutrophils automated count (number/volume) 5.9 10*3 1.8-7.8 Blood lymphocytes automated count (number/volume) 0.8 10*3 1.0-4.0 Blood monocytes automated count (number/volume) 1.3 10*3 0.0- 1.0 Automated eosinophil count 0.0 10*3/uL 0.0-0.3 Automated blood basophil count (count/volume) 0.0 10*3/uL 0.0-0.1 Comprehensive metabolic panel - 12/06/18 09:21 Serum or plasma sodium measurement (moles/volume) 136 mmol/L 135-145 Serum or plasma potassium measurement (moles/volume) 3.8 mmol/L 3.6-5.0 Serum or plasma chloride measurement (moles/volume) 99 mmol/L 98-107 Carbon dioxide 26 mmol/L 21-32 Serum or plasma anion gap determination (moles/volume) 11 mmol/L 5-14 Serum or plasma urea nitrogen measurement (mass/volume) 10 mg/dL 7-18 Serum or plasma creatinine measurement (mass/volume) 1.18 mg/dL 0.60-1.30 Serum or plasma urea nitrogen/creatinine mass ratio 8 NRG Serum or plasma creatinine measurement with calculation of estimated glomerular filtration rate > NRG Serum or plasma glucose measurement (mass/volume) 98 mg/dL 70-105 Serum or plasma calcium measurement (mass/volume) 9.6 mg/dL 8.5-10.1 Serum or plasma total bilirubin measurement (mass/volume) 0.6 mg/dL 0.1-1.0 Serum or plasma alkaline phosphatase measurement (enzymatic activity/volume) 96 U/L 40-136 Serum or plasma aspartate aminotransferase measurement (enzymatic activity/volume) 32 U/L 5-34 Serum or plasma alanine aminotransferase measurement (enzymatic activity/volume) 20 U/L 0-55 Serum or plasma protein measurement (mass/volume) 7.0 g/dL 6.4-8.2 Serum or plasma albumin measurement (mass/volume) 4.0 g/dL 3.2-4.5 CALCIUM CORRECTED 9.6 mg/dL 8.5-10.1 Magnesium - 12/06/18 09:21 Magnesium 2.2 mg/dL 1.8-2.4 Serum or plasma thyrotropin measurement by detection limit <=0.05 miu/l (units/volume) - 12/06/18 09:21 Serum or plasma thyrotropin measurement by detection limit <=0.05 miu/l (units/volume) 1.23 u[iU]/mL 0.35-4.94 Serum or plasma C reactive protein measurement (mass/volume) - 12/06/18 09:21 Serum or plasma C reactive protein measurement (mass/volume) 12.28 mg/dL 0.00-0.50 Serum or plasma ethanol measurement (mass/volume) - 12/06/18 09:21 Serum or plasma ethanol measurement (mass/volume) < mg/dL <10 Complete urinalysis with reflex to culture - 12/06/18 09:35 Urine color determination YELLOW NRG Urine clarity determination CLEAR NRG Urine pH measurement by test strip 7 5-9 Specific gravity of urine by test strip 1.010 1.016-1.022 Urine protein assay by test strip, semi-quantitative NEGATIVE NEGATIVE Urine glucose detection by automated test strip NEGATIVE NEGATIVE Erythrocytes detection in urine sediment by light microscopy NEGATIVE NEGATIVE Urine ketones detection by automated test strip NEGATIVE NEGATIVE Urine nitrite detection by test strip NEGATIVE NEGATIVE Urine total bilirubin detection by test strip NEGATIVE NEGATIVE Urine urobilinogen measurement by automated test strip (mass/volume) 1 mg/dL NORMAL Urine leukocyte esterase detection by dipstick NEGATIVE NEGATIVE Automated urine sediment erythrocyte count by microscopy (number/high power field) NONE NRG Automated urine sediment leukocyte count by microscopy (number/high power field) NONE NRG Bacteria detection in urine sediment by light microscopy NEGATIVE NRG Squamous epithelial cells detection in urine sediment by light microscopy NONE NRG Crystals detection in urine sediment by light microscopy NONE NRG Casts detection in urine sediment by light microscopy NONE NRG Mucus detection in urine sediment by light microscopy NEGATIVE NRG Complete urinalysis with reflex to culture NO NRG Urine drug screening test - 12/06/18 09:35 Urine phencyclidine detection by screening method NEGATIVE NEGATIVE Urine benzodiazepines detection by screening method NEGATIVE NEGATIVE Urine cocaine detection NEGATIVE NEGATIVE Urine amphetamines detection by screening method NEGATIVE NEGATIVE Urine methamphetamine detection by screening method NEGATIVE NEGATIVE Urine cannabinoids detection by screening method NEGATIVE NEGATIVE Urine opiates detection by screening method NEGATIVE NEGATIVE Urine barbiturates detection NEGATIVE NEGATIVE Screening urine tricyclic antidepressants detection NEGATIVE NEGATIVE Urine methadone detection by screening method NEGATIVE NEGATIVE Urine oxycodone detection NEGATIVE NEGATIVE Urine propoxyphene detection NEGATIVE NEGATIVE Serum or plasma creatine kinase measurement (enzymatic activity/volume) - 12/06/18 13:39 Serum or plasma creatine kinase measurement (enzymatic activity/volume) 804 U/L 30-200 Blood lactic acid measurement (moles/volume) - 12/06/18 13:55 Blood lactic acid measurement (moles/volume) 1.57 mmol/L 0.50- 2.00 Bacterial blood culture - 12/06/18 13:55 Bacterial blood culture NG NRG Bacterial blood culture - 12/06/18 14:24 Bacterial blood culture NG NRG Complete blood count (CBC) with automated white blood cell (WBC) differential - 12/07/18 04:03 Blood leukocytes automated count (number/volume) 6.7 10*3/uL 4.3-11.0 Blood erythrocytes automated count (number/volume) 4.59 10*6/uL 4.35-5.85 Venous blood hemoglobin measurement (mass/volume) 13.7 g/dL 13.3-17.7 Blood hematocrit (volume fraction) 40 % 40-54 Automated erythrocyte mean corpuscular volume 87 [foz_us] 80-99 Automated erythrocyte mean corpuscular hemoglobin (mass per erythrocyte) 30 pg 25-34 Automated erythrocyte mean corpuscular hemoglobin concentration measurement (mass/volume) 35 g/dL 32-36 Automated erythrocyte distribution width ratio 12.3 % 10.0- 14.5 Automated blood platelet count (count/volume) 195 10*3/uL 130-400 Automated blood platelet mean volume measurement 9.0 [foz_us] 7.4-10.4 Automated blood neutrophils/100 leukocytes 68 % 42-75 Automated blood lymphocytes/100 leukocytes 15 % 12-44 Blood monocytes/100 leukocytes 16 % 0-12 Automated blood eosinophils/100 leukocytes 0 % 0-10 Automated blood basophils/100 leukocytes 0 % 0-10 Blood neutrophils automated count (number/volume) 4.6 10*3 1.8-7.8 Blood lymphocytes automated count (number/volume) 1.0 10*3 1.0-4.0 Blood monocytes automated count (number/volume) 1.1 10*3 0.0- 1.0 Automated eosinophil count 0.0 10*3/uL 0.0-0.3 Automated blood basophil count (count/volume) 0.0 10*3/uL 0.0-0.1 Whole blood basic metabolic panel - 12/07/18 04:03 Serum or plasma sodium measurement (moles/volume) 132 mmol/L 135-145 Serum or plasma potassium measurement (moles/volume) 3.5 mmol/L 3.6-5.0 Serum or plasma chloride measurement (moles/volume) 100 mmol/L 98-107 Carbon dioxide 22 mmol/L 21-32 Serum or plasma anion gap determination (moles/volume) 10 mmol/L 5-14 Serum or plasma urea nitrogen measurement (mass/volume) 8 mg/dL 7-18 Serum or plasma creatinine measurement (mass/volume) 0.85 mg/dL 0.60-1.30 Serum or plasma urea nitrogen/creatinine mass ratio 9 NRG Serum or plasma creatinine measurement with calculation of estimated glomerular filtration rate > NRG Serum or plasma glucose measurement (mass/volume) 111 mg/dL 70-105 Serum or plasma calcium measurement (mass/volume) 8.8 mg/dL 8.5-10.1 Serum or plasma C reactive protein measurement (mass/volume) - 12/07/18 04:03 Serum or plasma C reactive protein measurement (mass/volume) 12.78 mg/dL 0.00-0.50 Tick identification panel - 12/07/18 10:31 Serum Ehrlichia chaffeensis IgG antibody detection <1:16 <1:16 Serum Ehrlichia chaffeensis IgM antibody detection <1:10 <1:10 Serum Rickettsia rickettsii IgG antibody assay (units/volume) < <1:16 Dickey spotted fever panel < <1:10 Francisella tularensis antibody assay <1:20 NRG LYME AB G M 0.07 % 0.00-0.89 Interpretation of Lyme disease antibody assay Negative Negative West Nile virus antibody panel (IgG and IgM) - 12/07/18 10:31 Serum West Nile virus IgM antibody assay 0.02 % 0.00-0.89 West Nile virus IgG antibody detection 0.63 0.00-1.29 Serum or plasma creatine kinase measurement (enzymatic activity/volume) - 12/07/18 21:50 Serum or plasma creatine kinase measurement (enzymatic activity/volume) 563 U/L 30-200 Automated blood complete blood count (hemogram) panel - 12/08/18 03:45 Blood leukocytes automated count (number/volume) 7.7 10*3/uL 4.3-11.0 Blood erythrocytes automated count (number/volume) 4.90 10*6/uL 4.35-5.85 Venous blood hemoglobin measurement (mass/volume) 14.9 g/dL 13.3-17.7 Blood hematocrit (volume fraction) 42 % 40-54 Automated erythrocyte mean corpuscular volume 86 [foz_us] 80-99 Automated erythrocyte mean corpuscular hemoglobin (mass per erythrocyte) 30 pg 25-34 Automated erythrocyte mean corpuscular hemoglobin concentration measurement (mass/volume) 35 g/dL 32-36 Automated erythrocyte distribution width ratio 12.2 % 10.0- 14.5 Automated blood platelet count (count/volume) 203 10*3/uL 130-400 Automated blood platelet mean volume measurement 9.3 [foz_us] 7.4-10.4 Comprehensive metabolic panel - 12/08/18 03:45 Serum or plasma sodium measurement (moles/volume) 137 mmol/L 135-145 Serum or plasma potassium measurement (moles/volume) 4.0 mmol/L 3.6-5.0 Serum or plasma chloride measurement (moles/volume) 104 mmol/L 98-107 Carbon dioxide 24 mmol/L 21-32 Serum or plasma anion gap determination (moles/volume) 9 mmol/L 5-14 Serum or plasma urea nitrogen measurement (mass/volume) 8 mg/dL 7-18 Serum or plasma creatinine measurement (mass/volume) 0.82 mg/dL 0.60-1.30 Serum or plasma urea nitrogen/creatinine mass ratio 10 NRG Serum or plasma creatinine measurement with calculation of estimated glomerular filtration rate > NRG Serum or plasma glucose measurement (mass/volume) 101 mg/dL 70-105 Serum or plasma calcium measurement (mass/volume) 9.2 mg/dL 8.5-10.1 Serum or plasma total bilirubin measurement (mass/volume) 0.4 mg/dL 0.1-1.0 Serum or plasma alkaline phosphatase measurement (enzymatic activity/volume) 90 U/L 40-136 Serum or plasma aspartate aminotransferase measurement (enzymatic activity/volume) 40 U/L 5-34 Serum or plasma alanine aminotransferase measurement (enzymatic activity/volume) 27 U/L 0-55 Serum or plasma protein measurement (mass/volume) 6.1 g/dL 6.4-8.2 Serum or plasma albumin measurement (mass/volume) 3.4 g/dL 3.2-4.5 CALCIUM CORRECTED 9.7 mg/dL 8.5-10.1 Serum or plasma C reactive protein measurement (mass/volume) - 12/08/18 03:45 Serum or plasma C reactive protein measurement (mass/volume) 10.74 mg/dL 0.00-0.50 Erythrocyte sedimentation rate by westergren method - 12/08/18 03:45 Erythrocyte sedimentation rate by westergren method 35 mm 0-30 Serum or plasma creatine kinase MB measurement (enzymatic activity/volume) - 12/09/18 06:20 Serum or plasma creatine kinase MB measurement (enzymatic activity/volume) 3.3 ng/mL <6.6 Serum or plasma C reactive protein measurement (mass/volume) - 12/09/18 06:20 Serum or plasma C reactive protein measurement (mass/volume) 7.58 mg/dL 0.00-0.50 Serum or plasma creatine kinase measurement (enzymatic activity/volume) - 12/10/18 05:05 Serum or plasma creatine kinase measurement (enzymatic activity/volume) 120 U/L 30-200 Serum or plasma C reactive protein measurement (mass/volume) - 12/10/18 05:05 Serum or plasma C reactive protein measurement (mass/volume) 7.01 mg/dL 0.00-0.50 Encounters ACCT No. Visit Date/Time Discharge Status Pt. Type Provider Facility Loc./Unit Complaint [id number] 03/04/2013 12:13:00 03/04/2013 23:59:59 [facility] Outpatient MOSES REYNOSO DO [id number] 03/04/2013 12:13:00 03/04/2013 23:59:59 [facility] Outpatient MOSES REYNOSO DO [id number] 07/24/2012 15:30:00 07/24/2012 23:59:59 [facility] Outpatient [id number] 10/22/2012 10:48:00 Document Registration 0000 2017 12:54:18 2017 23:59:59 [facility] Outpatient [id number] 12/06/2018 13:40:00 12/10/2018 14:11:00 DIS Outpatient BAYLEE KASPER, FAUSTO Watson [facility] 4TH AMS, URI, COUGH, WEAKNESS [id number] 10/18/2014 11:44:00 10/18/2014 23:59:59 CLS Outpatient MOSES HANNA MD [facility] RAD CHRONIC COUGH [id number] 12/19/2011 09:09:00 Document Registration
[2018-12-22 16:29] LABS: CREATINE KINASE MB 1.7 NG/ML (<6.6)
--- NOTE | 2018-12-22 16:35 | Diagnostic Imaging Report ---
INDICATION: Abdominal distention. EXAMINATION: Portable chest at 4:27 PM. FINDINGS: The heart size and pulmonary vascularity are normal. There is some atelectasis at the left lung base. The right lung is clear. There is no effusion or pneumothorax. IMPRESSION: Left basilar atelectasis. Dictated by: Dictated on workstation # [id number]
--- NOTE | 2018-12-22 16:51 | ED General ---
General Chief Complaint: Abdominal/GI Problems Stated Complaint: ABD ISSUES Source of Information: EMS, Old Records (ALL PMH IS FROM ADMIT ON 12/06/18) Exam Limitations: Other (PT IS POOR HISTORIAN AND UNABLE TO GIVE ANY RELIABLE INFORMATION) History of Present Illness Date Seen by Provider: Dec 22, 2018 Time Seen by Provider: 15:28 Initial Comments PT ARRIVES VIA EMS FROM HOME HOME HEALTH NURSE CALLED EMS WAS REPORTED TO EMS BY HOME HEALTH NURSE THAT PT HAS HAD LOOSE STOOLS FOR A DAY AND A HALF--UNKNOWN # OF STOOLS ALSO IS REPORTED THAT ABDOMEN IS DISTENDED NO REPORTED VOMITING TEMP 99 PT HAS HAD DECREASED ACTIVITY, FOR UNKNOWN LENGTH OF TIME PT HAS DENIED PAIN IS UNKNOWN WHEN PT LAST ATE/DRANK OR VOIDED PT HAS HISTORY OF PARANOID SCHIZOPHRENIA AND EARLY DEMENTIA PT ADMITTED 12/06-12/10/18 FOR ALTERED MENTAL STATUS. WAS DX WITH RHA BDOMYOLYSIS, WITH ELEVATED CRP AND ELEVATED MYOGLOBIN, WITH LOW SODIUM AND LOW POTASSIUM PT LIVES BY HIMSELF, WITH A BROTHER AND SISTER WHO LOOK AFTER HIM, AND ALSO HAS A HOME HEALTH NURSE. PT IS VERY DROWSY AND LETHARGIC ON ARRIVAL, DOES NOT OPEN EYES OR MAKE ANY NOISE WHEN MOVED FROM EMS CART TO ER CART PT DOES YELL AND CURSE ON IV STICK, OTHERWISE PT DOES NOT REALLY TALK BRIEFLY OPENS EYES TO VOICE ON ARRIVAL, THEN QUICKLY CLOSES HIS EYES AGAIN PCP: DR. BEACH Allergies and Home Medications Allergies Coded Allergies: No Known Drug Allergies (Unverified , 12/06/18) Home Medications Azithromycin 250 Mg Tablet, 250 MG PO DAILY@1500 Prescribed by: FAUSTO BEACH on 12/10/18 0930 Benztropine Mesylate 1 Mg Tablet, 1 MG PO DAILY, (Reported) Benztropine Mesylate 1 Mg Tablet, 2 MG PO HS, (Reported) TAKES 2 (1MG) TABLETS Bupropion HCl 200 Mg Tablet.er, 200 MG PO DAILY, (Reported) Clomipramine HCl 25 Mg Capsule, 25 MG PO HS, (Reported) Clonazepam 1 Mg Tablet, 1 MG PO BID, (Reported) Gentamicin Sulfate 5 Ml Drops, 0 ML OP Q2H 2 drops into bilateral eyes q 4 hours x 5 days Prescribed by: FAUSTO BEACH on 12/10/18 0930 Metoprolol Tartrate 25 Mg Tablet, 25 MG PO BID Prescribed by: FAUSTO BEACH on 12/10/18 0930 Risperidone 3 Mg Tablet, PO UD, (Reported) TAKES 3MG TWICE DAILY ON EVEN DAYS ALTERNATING EVERY OTHER DAY WITH 3MG AM AND 6MG PM ON ODD DAYS. Trifluoperazine HCl 5 Mg Tablet, 5 MG PO BID, (Reported) Patient Home Medication List Home Medication List Reviewed: Yes Review of Systems Review of Systems Constitutional: fever, malaise, weakness, other (PT NOT ANSWERING ANY QUESTIONS) Gastrointestinal: see HPI, diarrhea Past Uxdkggc-Brfwjg-Fbwuxr Hx Patient Social History Alcohol Use: Denies Use Recreational Drug Use: No Smoking Status: Current Everyday Smoker Type Used: Cigarettes 2nd Hand Smoke Exposure: Yes Recent Foreign Travel: No Contact w/Someone Who Travel: No Recent Hopitalizations: No Immunizations Up To Date Date of Pneumonia Vaccine: Dec 27, 2014 Seasonal Allergies Seasonal Allergies: No Past Medical History Surgeries: Yes (esophageal surgery for acid reflux) Tonsillectomy Respiratory: No Cardiac: No Neurological: Yes Dementia Reproductive Disorders: No Sexually Transmitted Disease: No HIV/AIDS: No Genitourinary: No Gastrointestinal: No Musculoskeletal: No Endocrine: No HEENT: No Loss of Vision: Denies Hearing Impairment: Denies Cancer: No Psychosocial: Yes (PARANOID SCHIZOPHRENIA, EARLLY DEMENTIA) Schizophrenia Integumentary: No Blood Disorders: No Family Medical History Heart Disease, Cancer, Diabetes, Hypertension Physical Exam Vital Signs Vital Signs - First Documented 12/22/18 15:26 Temp 100.4 Pulse 100 Resp 15 B/P (MAP) 130/76 (94) Pulse Ox 90 O2 Delivery Room Air Capillary Refill : Height, Weight, BMI Height: 5'8.00" Weight: 159lbs. 6.0oz. [id number]; 24.2 BMI Method:Stated General Appearance: Other (VERY DROWSY/LETHARGIC, OPENS EYES BRIEFLY TO VOICE. DOES YELL/CURSE WITH IV STICK AND YELLS / TALKS WITH CATHETER PLACEMENT; THEN GOES RIGHT BACK TO SLEEP/LETHARGIC STATE. + ODOR OF SMOKE. ) HEENT: Other (CONJUNCTIVA VERY INFLAMED BILATERALLY, NO DRAINAGE OR MATTING OR PERIORBITAL EDEMA) Neck: Non Tender Respiratory: Normal Breath Sounds, No Accessory Muscle Use, No Respiratory Distress Cardiovascular: Tachycardia (100) Gastrointestinal: Abnormal Bowel Sounds (RARE, HIGH-PITCHED/TYMPANIC), Distended (AND VERY FIRM), Tenderness (DIFFUSE TENDERNESS) Back: No CVA Tenderness Extremity: Pedal Edema (TRACE BILATERALLY) Neurologic/Psychiatric: Other (MENTATION NOTED ABOVE. GROSSLY MOVES ALL EXTREMITIES EQUALLY, BUT NOT REALLY TALKING OR FOLLOWING COMMANDS. ) Skin: Normal Color, Warm/Dry Focused Exam Lactate Level 12/22/18 15:35: Lactic Acid Level 1.40 Lactic Acid Level Laboratory Tests Test 12/22/18 15:35 Lactic Acid Level 1.40 MMOL/L (0.50-2.00) Progress/Results/Core Measures Suspected Sepsis SIRS Temperature: Pulse: Respiratory Rate: Laboratory Tests 12/22/18 15:35: White Blood Count 15.6H Blood Pressure / Mean: 12/22/18 15:35: Lactic Acid Level 1.40 Laboratory Tests 12/22/18 15:35: Creatinine 1.19, INR Comment 1.2, Platelet Count 228, Total Bilirubin 0.6 Results/Orders Lab Results Laboratory Tests Test 12/22/18 15:35 12/22/18 17:30 Range/Units White Blood Count 15.6 H 4.3-11.0 10^3/uL Red Blood Count 4.76 4.35-5.85 10^6/uL Hemoglobin 14.4 13.3-17.7 G/DL Hematocrit 42 40-54 % Mean Corpuscular Volume 88 80-99 FL Mean Corpuscular Hemoglobin 30 25-34 PG Mean Corpuscular Hemoglobin Concent 34 32-36 G/DL Red Cell Distribution Width 12.4 10.0-14.5 % Platelet Count 228 130-400 10^3/uL Mean Platelet Volume 8.9 7.4-10.4 FL Neutrophils (%) (Auto) 87 H 42-75 % Lymphocytes (%) (Auto) 4 L 12-44 % Monocytes (%) (Auto) 9 0-12 % Eosinophils (%) (Auto) 0 0-10 % Basophils (%) (Auto) 0 0-10 % Neutrophils # (Auto) 13.6 H 1.8-7.8 X 10^3 Lymphocytes # (Auto) 0.6 L 1.0-4.0 X 10^3 Monocytes # (Auto) 1.4 H 0.0-1.0 X 10^3 Eosinophils # (Auto) 0.0 0.0-0.3 10^3/uL Basophils # (Auto) 0.0 0.0-0.1 10^3/uL Neutrophils % (Manual) 86 % Lymphocytes % (Manual) 4 % Monocytes % (Manual) 5 % Eosinophils % (Manual) 1 % Band Neutrophils 4 % Blood Morphology Comment NORMAL Prothrombin Time 15.7 H 12.2-14.7 SEC INR Comment 1.2 0.8-1.4 Activated Partial Thromboplast Time 38 H 24-35 SEC Sodium Level 136 135-145 MMOL/L Potassium Level 3.2 L 3.6-5.0 MMOL/L Chloride Level 97 L 98-107 MMOL/L Carbon Dioxide Level 26 21-32 MMOL/L Anion Gap 13 5-14 MMOL/L Blood Urea Nitrogen 16 7-18 MG/DL Creatinine 1.19 0.60-1.30 MG/DL Estimat Glomerular Filtration Rate 60 BUN/Creatinine Ratio 13 Glucose Level 108 H 70-105 MG/DL Lactic Acid Level 1.40 0.50-2.00 MMOL/L Calcium Level 9.3 8.5-10.1 MG/DL Corrected Calcium 9.5 8.5-10.1 MG/DL Magnesium Level 2.1 1.8-2.4 MG/DL Total Bilirubin 0.6 0.1-1.0 MG/DL Aspartate Amino Transf (AST/SGOT) 24 5-34 U/L Alanine Aminotransferase (ALT/SGPT) 16 0-55 U/L Alkaline Phosphatase 81 40-136 U/L Ammonia 20 11-32 UMOL/L Total Creatine Kinase 451 H 30-200 U/L Creatine Kinase MB 1.7 <6.6 NG/ML Myoglobin 262.5 H 10.0-92.0 NG/ML C-Reactive Protein High Sensitivity 20.65 H 0.00-0.50 MG/DL Total Protein 6.9 6.4-8.2 GM/DL Albumin 3.8 3.2-4.5 GM/DL Amylase Level 111 25-125 U/L Lipase 17 8-78 U/L Thyroid Stimulating Hormone (TSH) 1.92 0.35-4.94 UIU/ML Serum Alcohol < 10 <10 MG/DL Urine Color YELLOW Urine Clarity CLEAR Urine pH 6 5-9 Urine Specific [place] 1.020 1.016-1.022 Urine Protein 1+ H NEGATIVE Urine Glucose (UA) NEGATIVE NEGATIVE Urine Ketones 2+ H NEGATIVE Urine Nitrite NEGATIVE NEGATIVE Urine Bilirubin NEGATIVE NEGATIVE Urine Urobilinogen NORMAL NORMAL MG/DL Urine Leukocyte Esterase NEGATIVE NEGATIVE Urine RBC (Auto) NEGATIVE NEGATIVE Urine RBC RARE /HPF Urine WBC RARE /HPF Urine Squamous Epithelial Cells RARE /HPF Urine Crystals NONE /LPF Urine Bacteria TRACE /HPF Urine Casts NONE /LPF Urine Mucus MODERATE H /LPF Urine Culture Indicated NO Urine Opiates Screen NEGATIVE NEGATIVE Urine Oxycodone Screen NEGATIVE NEGATIVE Urine Methadone Screen NEGATIVE NEGATIVE Urine Propoxyphene Screen NEGATIVE NEGATIVE Urine Barbiturates Screen NEGATIVE NEGATIVE Ur Tricyclic Antidepressants Screen NEGATIVE NEGATIVE Urine Phencyclidine Screen NEGATIVE NEGATIVE Urine Amphetamines Screen NEGATIVE NEGATIVE Urine Methamphetamines Screen NEGATIVE NEGATIVE Urine Benzodiazepines Screen NEGATIVE NEGATIVE Urine Cocaine Screen NEGATIVE NEGATIVE Urine Cannabinoids Screen NEGATIVE NEGATIVE My Orders Orders - KIMMY BLACK DO Ed Iv/Invasive Line Start (12/22/18 15:31) Catheter(Urinary) Insert & Ass 03,15 (12/22/18 15:31) Monitor-Rhythm Ecg Trace Only (12/22/18 15:31) Chest 1 View, Ap/Pa Only (12/22/18 15:31) Alcohol (12/22/18 15:31) Ammonia (12/22/18 15:31) Amylase (12/22/18 15:31) Cbc With Automated Diff (12/22/18 15:31) Comprehensive Metabolic Panel (12/22/18 15:31) Drug Screen Stat (Urine) (12/22/18 15:31) Lactic Acid Analyzer (12/22/18 15:31) Lipase (12/22/18 15:31) Magnesium (12/22/18 15:31) Protime With Inr (12/22/18 15:31) Partial Thromboplastin Time (12/22/18 15:31) Ua Culture If Indicated (12/22/18 15:31) Ed Iv/Invasive Line Start (12/22/18 15:31) Lactated Ringers (Lr 1000 Ml Iv Solution (12/22/18 15:31) Ekg Tracing (12/22/18 15:31) O2 (12/22/18 15:31) Blood Culture (12/22/18 15:31) Creatine Kinase (12/22/18 15:49) Creatine Kinase Mb (12/22/18 15:49) Hs C Reactive Protein (12/22/18 15:49) Thyroid Stimulating Hormone (12/22/18 15:49) Myoglobin Serum (12/22/18 15:49) Manual Differential (12/22/18 15:35) Ct Abdomen/Pelvis Wo (12/22/18 16:12) Cefepime Injection (Maxipime Injection) (12/22/18 17:45) Medications Given in ED Current Medications Medications Dose Ordered Sig/Lisette Route Start Time Stop Time Status Last Admin Dose Admin Lactated Ringer's 1,000 ml @ 0 mls/hr Q0M ONCE IV 12/22/18 15:31 12/22/18 15:35 DC 12/22/18 16:57 1,000 MLS/HR Vital Signs/I&O 12/22/18 15:26 Temp 100.4 Pulse 100 Resp 15 B/P (MAP) 130/76 (94) Pulse Ox 90 O2 Delivery Room Air Capillary Refill : Progress Note : Progress Note INITIAL O2 SATS 89-90% ON ROOM AIR--UP TO 96-97% ON 2L/NC NO DYSPNEA OR ANY RESPIRATORY SYMPTOMS DURING ER STAY NO DETERIORATION IN PT'S CONDITION DURING ER STAY AG CATHETER PLACED, WITH IMMEDIATE RETURN OF > 1000 ML VERY DARK URINE ECG Initial ECG Impression Date: Dec 22, 2018 Initial ECG Impression Time: 15:56 Initial ECG Rate: 100 Initial ECG Rhythm: S.Tach (LAFB) Diagnostic Imaging Comments CXR--ATELECTASIS LEFT BASE CT ABDOMEN/PELVIS--PATCHY INFILTRATES LLL C/W PNEUMONIA, SIGNIFICANT DIFFUSE GASEOUS DISTENTION OF COLON, CANNOT R/O DISTAL COLONIC OBSTRUCTION, BUT NO WALL THICKENING OR PNEUMATOSIS, NO FREE AIR. NO MASSES. SIGNIFICANT BLADDER DISTENTION PER RADIOLOGIST REPORTS AT 1738 Reviewed: Reviewed by Me Departure Communication (Admissions) 1744--SPOKE WITH DR. SALMON, COVERING FOR DR. BEACH, ACCEPTS PT FOR ADMIT. Impression Primary Impression: LLL pneumonia Additional Impressions: Hypoxia Altered mental status URINARY RETENTION/BLADDER OUTLET OBSTRUCTION COLONIC ILEUS HX OF DEMENTIA AND PARANOID SCHIZOPHRENIA Elevated C-reactive protein (CRP) Elevated myoglobin level Mild dehydration Hypokaluria Smoker Elevated CK Disposition: ADMITTED INPATIENT Condition: Stable Admissions Decision to Admit Reason: Admit from ER (General) Decision to Admit/Date: Dec 22, 2018 Time/Decision to Admit Time: 17:45 Departure-Patient Inst. Referrals: NO,LOCAL PHYSICIAN (PCP/Family) Primary Care Physician KIMMY BLACK DO Dec 22, 2018 16:51
--- NOTE | 2018-12-22 17:10 | NUR ---
pt to ct
--- NOTE | 2018-12-22 17:33 | Diagnostic Imaging Report ---
PROCEDURE: CT abdomen and pelvis without contrast. TECHNIQUE: Multiple contiguous axial images were obtained through the abdomen and pelvis without the use of intravenous contrast. Auto Exposure Controls were utilized during the CT exam to meet ALARA standards for radiation dose reduction. INDICATION: Abdominal distention. FINDINGS: A patchy airspace infiltrate is identified in the left lower lobe, suggestive of pneumonia. No discrete liver mass is identified. The gallbladder is unremarkable. No biliary ductal dilatation is seen. Pancreas and spleen are unremarkable. No adrenal mass is detected. No renal calculi or hydronephrosis is detected. The infrarenal abdominal aorta is aneurysmal measuring 3.6 x 4.0 cm. This terminates above the bifurcation. There is significant bladder distention. There is global distention to the colon. There is moderate stool in the cecum. Ascending, transverse, and descending colon appear to be diffusely gaseous distended. There is significant distention to the sigmoid colon as well. There is a focal area of narrowing near the junction of the descending colon and sigmoid; however, the sigmoid colon distal to this level is significantly distended, and therefore this is likely not the site of obstruction. No wall thickening or pneumatosis is seen. Small bowel loops are not abnormally dilated. There is no free fluid in the abdomen. No fluid collection or free air is seen. IMPRESSION: 1. Left lower lobe pneumonia. 2. There is significant diffuse gaseous distention to the colon. A distal colonic obstruction cannot be entirely excluded. No wall thickening or pneumatosis is seen. There is no free air. 3. Significant bladder distention. Dictated by: Dictated on workstation # [id number]
[2018-12-22 17:38] LABS: BILIRUBIN,URINE NEGATIVE (NEGATIVE); CLARITY,URINE CLEAR; COLOR,URINE YELLOW; GLUCOSE, URINE (UA) NEGATIVE (NEGATIVE); KETONES,URINE 2+ (NEGATIVE); LEUKOCYTE ESTERASE ,URINE NEGATIVE (NEGATIVE); NITRITE,URINE NEGATIVE (NEGATIVE); PH,URINE 6 (5-9); PROTEIN,URINE 1+ (NEGATIVE); UROBILINOGEN,URINE NORMAL (NORMAL)
[2018-12-22] MEDS ORDERED: CEFEPIME INJECTION 2,000 MG in WATER (STERILE) FOR INJECTION 20 ML IV ONE (17:45)
[2018-12-22 17:51] LABS: BACTERIA,URINE TRACE /HPF; RBC,URINE RARE /HPF; SQUAMOUS EPITHELIAL CELL,UR RARE /HPF; WBC,URINE RARE /HPF
[2018-12-22 18:00] LABS: AMPHETAMINE SCREEN, URINE NEGATIVE (NEGATIVE); BARBITURATE SCREEN URINE NEGATIVE (NEGATIVE); BENZODIAZEPINES SCREEN URINE NEGATIVE (NEGATIVE); CANNABINOID SCREEN, URINE NEGATIVE (NEGATIVE); COCAINE SCREEN URINE NEGATIVE (NEGATIVE); METHADONE STAT NEGATIVE (NEGATIVE); METHAMPHETAMINE SCREEN URINE S NEGATIVE (NEGATIVE); OPIATE SCREEN URINE NEGATIVE (NEGATIVE); OXYCODONE STAT NEGATIVE (NEGATIVE); PROPOXYPHENE STAT NEGATIVE (NEGATIVE); TRICYCLIC ANTIDEPRESSANTS SCRE NEGATIVE (NEGATIVE)
[2018-12-22] MEDS ORDERED: CEFEPIME 2 GM (MAXIPIME) VIAL ONE (18:22)
[2018-12-22] MEDS ORDERED: WATER (STERILE) FOR INJECTION 20 ML ONE (18:23)
--- NOTE | 2018-12-22 18:37 | NUR ---
LAEYDA GUTIERREZ admitted to room 421-1, with an admitting diagnosis of pna, on 12/22/18 from ED via stretcher , accompanied by staff and family.ALEYDA GUTIERREZ introduced to surroundings, call light, bed controls, phone, TV, temperature control, lights, meal times, smoking policy, visitor policy, side rail policy, bathrooms and showers. Patient Rights given to patient in the handbook. ALEYDA GUTIERREZ verbalizes understanding that [facility] is not responsible for the loss or damage to any personal effects or valuables that are kept in the patients posession during their hospitalization. The following Patient Care Plans and discharge were discussed with the patient and family. ALEYDA GUTIERREZ verbalizes understanding of Interdisciplinary Patient Education. Patient and family were informed about the Rapid Response Team and its purpose.
[2018-12-22] MEDS ORDERED: NICOTINE 21 MG (NICODERM) PATCH ONE (19:11)
[2018-12-22 19:13] VITALS: BP 164/81
[2018-12-22 19:19] VITALS: BP 164/81
[2018-12-22] MEDS ORDERED: ONDANSETRON 4 MG/2 ML (SDV) Z0FRAN IV PRN (19:30)
[2018-12-22] MEDS ORDERED: CATHETER FLUSH 10 ML SYR IV PRN (19:30)
--- NOTE | 2018-12-22 19:44 | NUR ---
PT HOME MEDICATIONS REVIEWED WITH PATIENT'S FAMILY. DR SALMON WAS CALLED, ORDERED TO START HOME MEDS.
[2018-12-22] MEDS ORDERED: BUPR100T7 PO (19:50)
[2018-12-22] MEDS: D5 1/2 NS W/KCL 20 MEQ/L 1,000 ML IV SCH (20:28)
--- NOTE | 2018-12-22 20:59 | History & Physicial ---
History of Present Illness History of Present Illness Reason for visit/HPI History from sister and brother. Yesterday patient had memory loss. Patient all of a sudden was semiconscious. Patient stopped eating and stop drinking water stopped taking his medicine. Patient couldn't walk anymore. Today patient was brought in by EMS. Patient abdomen was distended. Patient had loose stool. Patient has a history of paranoid schizophrenia and early demented. Patient lives alone. Brother and sister watched over patient. CAT scan shows bladder distention. Patient also has significant gaseous distention of colon Date of Admission Dec 22, 2018 at 17:44 Time Seen by a Provider: 20:54 I consulted on this patient on 12/22/18 20:54 Attending Physician Roger Salmon DO Admitting Physician Fausto Vitale MD Consult Allergies and Home Medications Allergies Coded Allergies: No Known Drug Allergies (Unverified , 12/06/18) Home Medications Benztropine Mesylate 1 Mg Tablet, 1 MG PO DAILY, (Reported) Benztropine Mesylate 1 Mg Tablet, 2 MG PO HS, (Reported) TAKES 2 (1MG) TABLETS Bupropion HCl 200 Mg Tablet.er, 200 MG PO DAILY, (Reported) Bupropion HCl 100 Mg Tablet.er, 100 MG PO HS, (Reported) Clomipramine HCl 25 Mg Capsule, 25 MG PO HS, (Reported) Clonazepam 1 Mg Tablet, 1 MG PO BID, (Reported) Metoprolol Tartrate 25 Mg Tablet, 25 MG PO BID Prescribed by: FAUSTO VITALE on 12/10/18 0930 Risperidone 3 Mg Tablet, PO UD, (Reported) TAKES 3MG TWICE DAILY ON EVEN DAYS ALTERNATING EVERY OTHER DAY WITH 3MG AM AND 6MG PM ON ODD DAYS. Patient Home Medication List Home Medication List Reviewed: Yes Past Vuwelgb-Lahpel-Dcgtll Hx Patient Social History Marrital Status: single Alcohol Use: Denies Use Recreational Drug Use: No Smoking Status: Current Everyday Smoker Type Used: Cigarettes 2nd Hand Smoke Exposure: Yes Physical Abuse Screen: No Sexual Abuse: No Recent Foreign Travel: No Contact w/other who traveled: No Recent Hopitalizations: Yes Recent Infectious Disease Expo: No Immunizations Up To Date Date of Pneumonia Vaccine: Dec 27, 2014 Seasonal Allergies Seasonal Allergies: No Surgeries Yes (esophageal surgery for acid reflux) Tonsillectomy Respiratory No Currently Using CPAP: No Cardiovascular No Neurological Yes Dementia Reproductive System Hx Reproductive Disorders: No Sexually Transmitted Disease: No HIV/AIDS: No Genitourinary No Gastrointestinal No Musculoskeletal No Endocrine History of Endocrine Disorders: No HEENT History of HEENT Disorders: No Loss of Vision: Denies Hearing Impairment: Denies Cancer No Psychosocial History of Psychiatric Problem: Yes (PARANOID SCHIZOPHRENIA, EARLLY DEMENTIA) Behavioral Health Disorders: Schizophrenia Integumentary History of Skin or Integumenta: No Blood Transfusions History of Blood Disorders: No Family Medical History Significant Family History: Heart Disease, Cancer, Diabetes, Hypertension Review of Systems Constitutional: fever, malaise, weakness EENTM: no symptoms reported Respiratory: no symptoms reported Cardiovascular: no symptoms reported Gastrointestinal: other (Attention) Genitourinary: other (Urinary retention) Physical Exam Vital Signs Vital Signs - First Documented 12/22/18 12/22/18 15:26 18:40 Temp 100.4 Pulse 100 Resp 15 B/P (MAP) 130/76 (94) Pulse Ox 90 O2 Delivery Room Air O2 Flow Rate 2.00 Capillary Refill : Less Than 3 Seconds Height, Weight, BMI Height: 5'0.00" Weight: 159lbs. 9.0oz. 72.187225kg; 31.2 BMI Method:Stated General Appearance: No Apparent Distress, WD/WN Eyes: Bilateral Eye Normal Inspection HEENT: Normal ENT Inspection Neck: Full Range of Motion, Normal Inspection Respiratory: Chest Non Tender, No Accessory Muscle Use, No Respiratory Distress, Decreased Breath Sounds Cardiovascular: Regular Rate, Rhythm, No Murmur Gastrointestinal: Soft, Distended Assessment/Plan Assessment and Plan Left lower lobe pneumonia. Hypertension. Leukocytosis. Hypokalemia. Bladder distention. Colonic ileus. Paranoid schizophrenia. Dementia. Inability to walk Admission Diagnosis Admission Status: Inpatient Order (span 2 midnights) Reason for Inpatient Admission: Pneumonia. Acute mental status change. Urinary retention. Dementia. Clinical Quality Measures DVT/VTE Risk/Contraindication: Risk Factor Score Per Nursin RFS Level Per Nursing on Admit: 4+=Very High ROGER SALMON DO Dec 22, 2018 20:59
[2018-12-22] MEDS ORDERED: BUPROPION HCL 100 MG PO SCH (21:00)
[2018-12-22] MEDS ORDERED: CLOMIPRAMINE HCL 25 MG PO SCH (21:00)
[2018-12-22] MEDS ORDERED: NON-FORMULARY MEDICATION 1 EA EA (Benztropine Mesylate 2 MG) PO SCH (21:00)
[2018-12-22] MEDS ORDERED: NON-FORMULARY MEDICATION 1 EA EA (Clonazepam 1 MG) PO SCH (21:00)
[2018-12-22] MEDS: meTOprolol TARTRATE 25 MG (LOPRESSOR) TABLET PO SCH (21:38)
[2018-12-22] MEDS: buPROPion SR 100 MG (WELLBUTRIN SR) TAB PO SCH (21:38)
[2018-12-22] MEDS: BENZTROPINE MESYLATE 1 MG (COGENTIN) TAB PO SCH (21:38)
[2018-12-22] MEDS: clonazePAM 1 MG (KlonoPIN) TAB PO SCH (21:38)
[2018-12-22] MEDS: ENOXAPARIN 40 MG/0.4 ML (LOVENOX) SYR SC SCH (22:27)
[2018-12-23] VITALS (7 sets, daily range): BP systolic 120–159; BP diastolic 55–79
[2018-12-23] MEDS: D5 1/2 NS W/KCL 20 MEQ/L 1,000 ML IV SCH ×4 (03:15→20:19)
[2018-12-23 05:09] LABS: BASOPHILS % (AUTO) 0 % (0-10); EOSINOPHILS % (AUTO) 0 % (0-10); HEMATOCRIT 38 % (40-54); HEMOGLOBIN 12.8 G/DL (13.3-17.7); LYMPHOCYTES # (AUTO) 0.9 X 10^3 (1.0-4.0); LYMPHOCYTES % (AUTO) 8 % (12-44); MEAN CORPUSCULAR HEMOGLOBIN 30 PG (25-34); MEAN CORPUSCULAR HGB CONC 34 G/DL (32-36); MEAN CORPUSCULAR VOLUME 87 FL (80-99); MONOCYTES # (AUTO) 1.3 X 10^3 (0.0-1.0); MONOCYTES % (AUTO) 11 % (0-12); NEUTROPHILS % (AUTO) 81 % (42-75); PLATELET COUNT 196 10^3/uL (130-400); RED CELL DISTRIBUTION WIDTH 12.2 % (10.0-14.5); WHITE BLOOD COUNT 12.3 10^3/uL (4.3-11.0)
[2018-12-23 05:33] LABS: ALANINE AMINOTRANSFERASE 12 U/L (0-55); ALKALINE PHOSPHATASE 75 U/L (40-136); BILIRUBIN,TOTAL 0.5 MG/DL (0.1-1.0); BUN/CREATININE RATIO 13; CALCIUM 8.4 MG/DL (8.5-10.1); CARBON DIOXIDE 25 MMOL/L (21-32); CHLORIDE 101 MMOL/L (98-107); CREATININE SERUM 0.89 MG/DL (0.60-1.30); GFR ESTIMATED > 60; GLUCOSE 114 MG/DL (70-105); POTASSIUM 3.1 MMOL/L (3.6-5.0); SODIUM 135 MMOL/L (135-145); TOTAL PROTEIN 5.4 GM/DL (6.4-8.2)
--- NOTE | 2018-12-23 07:41 | Diagnostic Imaging Report ---
INDICATION: Pneumonia. Comparison with 12/22/2018. Findings: There has been partial clearing of left basilar infiltrate since previous exam. No new infiltrate. The heart is not enlarged. No pulmonary edema. No pneumothorax. No pleural effusion. IMPRESSION: Partial clearing of left basilar infiltrate and/or atelectasis. Dictated by: Dictated on workstation # [id number]
--- NOTE | 2018-12-23 08:07 | Progress Note (SOAP) ---
Subjective Time Seen by a Provider: 08:03 Subjective/Events-last exam History by sister. Cough is better. Slight bowel movement last night. Slept most at night. Patient taking fluids. Sr. states patient not able to walk now. Abdomen is soft better. Focused Exam Lactate Level 12/22/18 15:35: Lactic Acid Level 1.40 12/23/18 05:00: Lactic Acid Level 0.83 Lactic Acid Level Laboratory Tests Test 12/23/18 05:00 Lactic Acid Level 0.83 MMOL/L (0.50-2.00) Objective Exam Vital Signs Date Time Temp Pulse Resp B/P (MAP) Pulse Ox O2 Delivery O2 Flow Rate FiO2 12/23/18 07:10 79 12/23/18 03:53 98.3 74 20 120/55 (76) 94 Nasal Cannula 2.00 12/23/18 01:00 74 12/23/18 00:07 98.8 78 20 131/63 (85) 95 12/22/18 20:19 99 12/22/18 19:56 Nasal Cannula 2.00 12/22/18 19:21 Nasal Cannula 2.00 12/22/18 19:19 99.4 102 20 164/81 96 Nasal Cannula 2.00 12/22/18 19:13 99.4 102 22 164/81 (108) 96 Nasal Cannula 2.00 12/22/18 18:40 100.4 101 15 128/80 (96) 94 Nasal Cannula 2.00 12/22/18 15:26 100.4 100 15 130/76 (94) 90 Room Air I & O 12/23/18 07:00 Intake Total 2690 ml Output Total 2100 ml Balance 590 ml Capillary Refill : Less Than 3 Seconds General Appearance: No Apparent Distress, WD/WN HEENT: Normal ENT Inspection Neck: Normal Inspection, Non Tender Respiratory: Lungs Clear, No Accessory Muscle Use Cardiovascular: Regular Rate, Rhythm, No Murmur Gastrointestinal: non tender, soft Results Lab Laboratory Tests 12/22/18 15:35: White Blood Count 15.6H, Red Blood Count 4.76, Hemoglobin 14.4, Hematocrit 42, Mean Corpuscular Volume 88, Mean Corpuscular Hemoglobin 30, Mean Corpuscular Hemoglobin Concent 34, Red Cell Distribution Width 12.4, Platelet Count 228, Mean Platelet Volume 8.9, Neutrophils (%) (Auto) 87H, Lymphocytes (%) (Auto) 4L, Monocytes (%) (Auto) 9, Eosinophils (%) (Auto) 0, Basophils (%) (Auto) 0, Neutrophils # (Auto) 13.6H, Lymphocytes # (Auto) 0.6L, Monocytes # (Auto) 1.4H, Eosinophils # (Auto) 0.0, Basophils # (Auto) 0.0, Neutrophils % (Manual) 86, Lymphocytes % (Manual) 4, Monocytes % (Manual) 5, Eosinophils % (Manual) 1, Band Neutrophils 4, Blood Morphology Comment NORMAL, Prothrombin Time 15.7H, INR Comment 1.2, Activated Partial Thromboplast Time 38H, Sodium Level 136, Potassium Level 3.2L, Chloride Level 97L, Carbon Dioxide Level 26, Anion Gap 13, Blood Urea Nitrogen 16, Creatinine 1.19, Estimat Glomerular Filtration Rate 60, BUN/Creatinine Ratio 13, Glucose Level 108H, Lactic Acid Level 1.40, Calcium Level 9.3, Corrected Calcium 9.5, Magnesium Level 2.1, Total Bilirubin 0.6, Aspartate Amino Transf (AST/SGOT) 24, Alanine Aminotransferase (ALT/SGPT) 16, Alkaline Phosphatase 81, Ammonia 20, Total Creatine Kinase 451H, Creatine Kinase MB 1.7, Myoglobin 262.5H, C-Reactive Protein High Sensitivity 20.65H, Total Protein 6.9, Albumin 3.8, Amylase Level 111, Lipase 17, Thyroid Stimulating Hormone (TSH) 1.92, Serum Alcohol < 10 12/22/18 17:30: Urine Color YELLOW, Urine Clarity CLEAR, Urine pH 6, Urine Specific [place] 1.020, Urine Protein 1+H, Urine Glucose (UA) NEGATIVE, Urine Ketones 2+H, Urine Nitrite NEGATIVE, Urine Bilirubin NEGATIVE, Urine Urobilinogen NORMAL, Urine Leukocyte Esterase NEGATIVE, Urine RBC (Auto) NEGATIVE, Urine RBC RARE, Urine WBC RARE, Urine Squamous Epithelial Cells RARE, Urine Crystals NONE, Urine Bacteria TRACE, Urine Casts NONE, Urine Mucus MODERATEH, Urine Culture Indicated NO, Urine Opiates Screen NEGATIVE, Urine Oxycodone Screen NEGATIVE, Urine Methadone Screen NEGATIVE, Urine Propoxyphene Screen NEGATIVE, Urine Barbiturates Screen NEGATIVE, Ur Tricyclic Antidepressants Screen NEGATIVE, Urine Phencyclidine Screen NEGATIVE, Urine Amphetamines Screen NEGATIVE, Urine Methamphetamines Screen NEGATIVE, Urine Benzodiazepines Screen NEGATIVE, Urine Cocaine Screen NEGATIVE, Urine Cannabinoids Screen NEGATIVE 12/23/18 05:00: White Blood Count 12.3H, Red Blood Count 4.31L, Hemoglobin 12.8L, Hematocrit 38L , Mean Corpuscular Volume 87, Mean Corpuscular Hemoglobin 30, Mean Corpuscular Hemoglobin Concent 34, Red Cell Distribution Width 12.2, Platelet Count 196, Mean Platelet Volume 9.0, Neutrophils (%) (Auto) 81H, Lymphocytes (%) (Auto) 8L, Monocytes (%) (Auto) 11, Eosinophils (%) (Auto) 0, Basophils (%) (Auto) 0, Neutrophils # (Auto) 10.0H, Lymphocytes # (Auto) 0.9L, Monocytes # (Auto) 1.3H, Eosinophils # (Auto) 0.0, Basophils # (Auto) 0.0, Sodium Level 135, Potassium Level 3.1L, Chloride Level 101, Carbon Dioxide Level 25, Anion Gap 9, Blood Urea Nitrogen 12, Creatinine 0.89, Estimat Glomerular Filtration Rate > 60, BUN/Creatinine Ratio 13, Glucose Level 114H, Lactic Acid Level 0.83, Calcium Level 8.4L, Corrected Calcium 9.2, Total Bilirubin 0.5, Aspartate Amino Transf (AST/SGOT) 20, Alanine Aminotransferase (ALT/SGPT) 12, Alkaline Phosphatase 75, C-Reactive Protein High Sensitivity > 16.00H, Total Protein 5.4L, Albumin 3.0L Assessment/Plan Assessment/Plan Assess & Plan/Chief Complaint Patient awake this morning. Pneumonia. Urinary obstruction. Schizophrenia. Dehydration improving. Hypokalemia Clinical Quality Measures Admission Status Admission Dx Left lower lobe pneumonia. Hypertension. Leukocytosis. Hypokalemia. Bladder distention. Colonic ileus. Paranoid schizophrenia. Dementia. Inability to walk DVT/VTE Risk/Contraindication: Risk Factor Score Per Nursin RFS Level Per Nursing on Admit: 4+=Very High RICHELLE SALMON DO Dec 23, 2018 08:07
[2018-12-23 08:30] LABS: CREATINE KINASE MB 1.3 NG/ML (<6.6)
[2018-12-23] MEDS: meTOprolol TARTRATE 25 MG (LOPRESSOR) TABLET PO SCH ×2 (08:34→20:22)
[2018-12-23] MEDS: clonazePAM 1 MG (KlonoPIN) TAB PO SCH ×2 (08:34→20:23)
[2018-12-23] MEDS: buPROPion SR 100 MG (WELLBUTRIN SR) TAB PO SCH ×2 (08:34→20:22)
[2018-12-23] MEDS: BENZTROPINE MESYLATE 1 MG (COGENTIN) TAB PO SCH ×2 (08:35→20:23)
[2018-12-23] MEDS ORDERED: NON-FORMULARY MEDICATION 1 EA EA (Benztropine Mesylate 1 MG) PO SCH (09:00)
[2018-12-23] MEDS ORDERED: NON-FORMULARY MEDICATION 1 EA EA (Bupropion HCl (Wellbutrin Sr) 200 MG) PO SCH (09:00)
[2018-12-23] MEDS: NICOTINE 21 MG (NICODERM) PATCH TD SCH (09:12)
[2018-12-23] MEDS: NICOTINE PATCH REMOVAL TP SCH (09:12)
[2018-12-23] MEDS: POTASSIUM CL 10MEQ/50ML IVPB 50 ML IV SCH ×3 (09:16→14:12)
--- NOTE | 2018-12-23 09:35 | Diagnostic Imaging Report ---
INDICATION: Ileus. TIME OF EXAM: 9:01 AM. 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 FINDINGS: There continues to be significant gaseous distention of primarily colonic bowel loops throughout the abdomen. Distention of the sigmoid is noted. No bowel wall thickening or pneumatosis is seen. The small bowel does not appear to be distended. IMPRESSION: Continued diffuse colonic distention, consistent with either distal obstruction versus ileus. Continued progress films are recommended. Dictated by: Dictated on workstation # [id number]
[2018-12-23] MEDS ORDERED: NICO-588 TD (09:50)
--- NOTE | 2018-12-23 09:52 | NUR ---
REVIEWED MED REC WITH HOME MED LIST FROM PATIENTS BROTHER. HE ADMINISTERS THE PATIENTS MEDS. THEY GET THE FROM THE MD IN [place]. [facility]. THEY STATE HE WAS ALSO USING NICOTINE PATCHES AT HOME AND RECENTLY STARTED SO HE WAS ON THE FIRST STEP.
--- NOTE | 2018-12-23 12:09 | NUR ---
Pt s Yazidi. Cardiology Coordinator offered prayer and blessing to pt's while pt slept.
[2018-12-23] MEDS: RT-ALBUTEROL/IPRATROPIUM 3 ML (DUONEB) VIAL INH SCH ×3 (12:40→19:59)
[2018-12-23] MEDS ORDERED: RT-ALBUTEROL/IPRATROPIUM 3 ML (DUONEB) VIAL INH PRN (13:00)
--- NOTE | 2018-12-23 14:04 | NUR ---
CM/SS, reviewed EMR and visited with patient's siblings, Rubén and Hetal Mccloud. 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 He has been maintained home alone and with his siblings for his adult life due to paranoid schizophrenia and now, early dementia. He had a screening during the most recent hospital stay by [facility] ([facility] but patient was not admitted to their unit. He did go home with his siblings and [facility] RN and PT. Hetal describes a show of great improvement for a period of time, independent ambulation and improved care for self. She went on to say patient was saying that his belly "did not feel right down there" over a few days prior to the obvious extension/bloating. Following patient and family for results of diagnostics and best care plan options. Patient was borderline home vs SNF last stay, but with his mental health history siblings advocated for him to return home. Patient is established for his psychiatric care through Dr. Randell Pedraza MD, Aditya Mcginnis.
[2018-12-23] MEDS: CEFEPIME 2,000 MG/SWFI 20 ML IV PUSH IV SCH ×2 (18:32)
[2018-12-23] MEDS: ENOXAPARIN 40 MG/0.4 ML (LOVENOX) SYR SC SCH (20:20)
[2018-12-23] MEDS: ACETAMINOPHEN 500 MG TAB (TYLENOL) PO PRN (20:22)
--- NOTE | 2018-12-23 22:06 | Consultation (Surgery) ---
History of Present Illness History of Present Illness Patient Consulted On(ernesto/time) 12/23/18 22:00 Date Seen by Provider: Dec 23, 2018 Time Seen by Provider: 17:01 History of Present Illness Consult requested by Dr. Madera for colonic distention. Patient is a 68 year old male who is not able to provide any history. Sister at beside and states that she believes his abdomen has been a problem for at least 3 or more days. His abdomen has been really distended. She states today it seems that it may have gone down a little. She states he does not seem to have much pain with it. He has had poor oral intake lately. He had a ct scan demonstrating left lower lobe pneumonia, and significant gaseous distention of colon. He has a smear of a bowel movement yesterday that was reported to me. It is unclear if he is passing flatus. Had recent hospitalization at beginning of month. Allergies and Home Medications Allergies Coded Allergies: No Known Drug Allergies (Unverified , 12/06/18) Home Medications Benztropine Mesylate 1 Mg Tablet, 1 MG PO DAILY, (Reported) Benztropine Mesylate 1 Mg Tablet, 2 MG PO HS, (Reported) TAKES 2 (1MG) TABLETS Bupropion HCl 200 Mg Tablet.er, 200 MG PO DAILY, (Reported) Bupropion HCl 100 Mg Tablet.er, 100 MG PO HS, (Reported) Clomipramine HCl 25 Mg Capsule, 25 MG PO HS, (Reported) Clonazepam 1 Mg Tablet, 1 MG PO BID, (Reported) Metoprolol Tartrate 25 Mg Tablet, 25 MG PO BID Prescribed by: FAUSTO BEACH on 12/10/18 0930 Nicotine 1 Each Patch.td24, 21 MG TD DAILY, (Reported) Risperidone 3 Mg Tablet, PO UD, (Reported) TAKES 3MG TWICE DAILY ON EVEN DAYS ALTERNATING EVERY OTHER DAY WITH 3MG AM AND 6MG PM ON ODD DAYS. Patient Home Medication List Home Medication List Reviewed: Yes Past Clqmydu-Sqjjhl-Pzobcp Hx Patient Social History Alcohol Use: Denies Use Recreational Drug Use: No Smoking Status: Current Everyday Smoker Type Used: Cigarettes 2nd Hand Smoke Exposure: Yes Recent Foreign Travel: No Contact w/Someone Who Travel: No Recent Infectious Disease Expo: No Recent Hopitalizations: Yes Physical Abuse Screen: No Sexual Abuse: No Immunizations Up To Date Date of Pneumonia Vaccine: Dec 27, 2014 Seasonal Allergies Seasonal Allergies: No Surgeries History of Surgeries: Yes (esophageal surgery for acid reflux) Surgeries: Tonsillectomy Respiratory History of Respiratory Disorde: No Cardiovascular History of Cardiac Disorders: No Neurological History of Neurological Disord: Yes Neurological Disorders: Dementia Reproductive System Hx Reproductive Disorders: No Sexually Transmitted Disease: No HIV/AIDS: No Genitourinary History of Genitourinary Disor: No Gastrointestinal History of Gastrointestinal Di: No Musculoskeletal History of Musculoskeletal Dis: No Endocrine History of Endocrine Disorders: No HEENT History of HEENT Disorders: No Loss of Vision: Denies Hearing Impairment: Denies Cancer History of Cancer: No Psychosocial History of Psychiatric Problem: Yes (PARANOID SCHIZOPHRENIA, EARLLY DEMENTIA) Behavioral Health Disorders: Schizophrenia Integumentary History of Skin or Integumenta: No Blood Transfusions History of Blood Disorders: No Family Medical History Significant Family History: Heart Disease, Cancer, Diabetes, Hypertension Review of Systems-General ROS-Unable to Obtain: patient not communicating Physical Exam-General Problems Physical Exam Vital Signs Vital Signs - First Documented 12/22/18 12/22/18 12/23/18 15:26 18:40 07:20 Temp 100.4 Pulse 100 Resp 15 B/P (MAP) 130/76 (94) Pulse Ox 90 O2 Delivery Room Air O2 Flow Rate 2.00 FiO2 28 Capillary Refill : Less Than 3 Seconds General Appearance: no apparent distress (laying in bed) HEENT: PERRL/EOMI, normal ENT inspection Neck: non-tender, supple Respiratory: chest non-tender, no respiratory distress, no accessory muscle use Cardiovascular: regular rate, rhythm Gastrointestinal: no organomegaly, no pulsatile mass, distended (no significant tenderness) Rectal: other (no masses, rectal vault dilated, on exam large amount of gas and liquid stool evacuated) Back: no CVA tenderness Extremities: non-tender, normal inspection Neurologic/Psychiatric: alert; No normal mood/affect, No oriented x 3 Skin: normal color, warm/dry Lymphatic: no adenopathy Data Review Labs Laboratory Tests 12/23/18 05:00: White Blood Count 12.3H, Red Blood Count 4.31L, Hemoglobin 12.8L, Hematocrit 38L , Mean Corpuscular Volume 87, Mean Corpuscular Hemoglobin 30, Mean Corpuscular Hemoglobin Concent 34, Red Cell Distribution Width 12.2, Platelet Count 196, Mean Platelet Volume 9.0, Neutrophils (%) (Auto) 81H, Lymphocytes (%) (Auto) 8L, Monocytes (%) (Auto) 11, Eosinophils (%) (Auto) 0, Basophils (%) (Auto) 0, Neutrophils # (Auto) 10.0H, Lymphocytes # (Auto) 0.9L, Monocytes # (Auto) 1.3H, Eosinophils # (Auto) 0.0, Basophils # (Auto) 0.0, Sodium Level 135, Potassium Level 3.1L, Chloride Level 101, Carbon Dioxide Level 25, Anion Gap 9, Blood Urea Nitrogen 12, Creatinine 0.89, Estimat Glomerular Filtration Rate > 60, BUN/Creatinine Ratio 13, Glucose Level 114H, Lactic Acid Level 0.83, Calcium Level 8.4L, Corrected Calcium 9.2, Total Bilirubin 0.5, Aspartate Amino Transf (AST/SGOT) 20, Alanine Aminotransferase (ALT/SGPT) 12, Alkaline Phosphatase 75, Total Creatine Kinase 284H, Creatine Kinase MB 1.3, Myoglobin 117.6H, C-Reactive Protein High Sensitivity > 16.00H, Total Protein 5.4L, Albumin 3.0L Microbiology 12/22/18 Blood Culture - Preliminary, Resulted No growth Assessment/Plan Assessment/Plan Assessment/Plan Left lower lobe pneumonia. 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 Leukocytosis. Hypokalemia. Bladder distention. Paranoid schizophrenia. Dementia. Currently family stating abdomen is less distended would follow radiologically may need colonoscopy to evaluate and possibly decompress if becomes more distended no surgical intervention at this time will follow medical management Clinical Quality Measures DVT/VTE Risk/Contraindication: Risk Factor Score Per Nursin RFS Level Per Nursing on Admit: 4+=Very High MANAN AYOUB DO Dec 23, 2018 22:06
[2018-12-24] VITALS (7 sets, daily range): BP systolic 132–179; BP diastolic 69–90
[2018-12-24] MEDS: fentaNYL INJECTION 100 MCG/2 ML AMP IV PRN ×2 (00:11→14:28)
[2018-12-24] MEDS: D5 1/2 NS W/KCL 20 MEQ/L 1,000 ML IV SCH ×4 (02:09→23:00)
[2018-12-24 05:17] LABS: BASOPHILS % (AUTO) 0 % (0-10); EOSINOPHILS # (AUTO) 0.1 10^3/uL (0.0-0.3); EOSINOPHILS % (AUTO) 1 % (0-10); HEMATOCRIT 37 % (40-54); HEMOGLOBIN 12.7 G/DL (13.3-17.7); LYMPHOCYTES % (AUTO) 10 % (12-44); MEAN CORPUSCULAR HEMOGLOBIN 30 PG (25-34); MEAN CORPUSCULAR HGB CONC 35 G/DL (32-36); MEAN CORPUSCULAR VOLUME 86 FL (80-99); MEAN PLATELET VOLUME 9.4 FL (7.4-10.4); MONOCYTES # (AUTO) 1.1 X 10^3 (0.0-1.0); MONOCYTES % (AUTO) 12 % (0-12); NEUTROPHILS # (AUTO) 7.2 X 10^3 (1.8-7.8); NEUTROPHILS % (AUTO) 77 % (42-75); PLATELET COUNT 183 10^3/uL (130-400); RED CELL DISTRIBUTION WIDTH 11.7 % (10.0-14.5); WHITE BLOOD COUNT 9.4 10^3/uL (4.3-11.0)
[2018-12-24 05:38] LABS: ALANINE AMINOTRANSFERASE 18 U/L (0-55); ALBUMIN 2.9 GM/DL (3.2-4.5); ALKALINE PHOSPHATASE 79 U/L (40-136); BILIRUBIN,TOTAL 0.5 MG/DL (0.1-1.0); BUN/CREATININE RATIO 9; CALCIUM 8.4 MG/DL (8.5-10.1); CARBON DIOXIDE 24 MMOL/L (21-32); CHLORIDE 100 MMOL/L (98-107); CREATININE SERUM 0.79 MG/DL (0.60-1.30); GFR ESTIMATED > 60; GLUCOSE 98 MG/DL (70-105); POTASSIUM 3.4 MMOL/L (3.6-5.0); SODIUM 133 MMOL/L (135-145); TOTAL PROTEIN 5.3 GM/DL (6.4-8.2)
[2018-12-24] MEDS: RT-ALBUTEROL/IPRATROPIUM 3 ML (DUONEB) VIAL INH SCH ×4 (08:10→20:15)
--- NOTE | 2018-12-24 08:32 | Progress Note ---
Subjective Date Seen by a Provider: Dec 24, 2018 Time Seen by a Provider: 08:10 Subjective/Events-last exam PT CONFUSED, NOT ABLE TO ADEQUATELY ANSWER QUESTIONS. DISCUSSION WITH HIS SISTER AND BROTHER TODAY - THEY BOTH UNDERSTAND THAT HE IS ILL AND HIS MEDICATIONS FOR SCHIZOPHRENIA ARE CAUSING ISSUES WITH HIS MUSCLES. Review of Systems General: No Chills; Fatigue, Malaise Pulmonary: No Dyspnea, No Cough Cardiovascular: No: Chest Pain Gastrointestinal: No: Nausea Neurological: Weakness, Confusion Focused Exam Lactate Level 12/22/18 15:35: Lactic Acid Level 1.40 12/23/18 05:00: Lactic Acid Level 0.83 Objective Exam Last Set of Vital Signs Vital Signs Date Time Temp Pulse Resp B/P (MAP) Pulse Ox O2 Delivery O2 Flow Rate FiO2 12/24/18 08:10 93 Nasal Cannula 2.00 12/24/18 07:03 65 12/24/18 04:00 98.0 22 159/77 (104) 12/23/18 07:20 28 Capillary Refill : Less Than 3 Seconds I&O Intake and Output 12/24/18 00:00 Intake Total 3370 ml Output Total 1325 ml Balance 2045 ml Intake Oral 200 ml IV Total 3170 ml Output Urine Total 1325 ml # Bowel Movements 3 General: Other (AROUSABLE, BUT NOT ALERT) HEENT: Atraumatic Neck: Supple Lungs: Clear to Auscultation Heart: Regular Rate Abdomen: Normal Bowel Sounds, Soft Psych/Mental Status: Other (CONFUSED) Results Lab Laboratory Tests 12/24/18 04:50: White Blood Count 9.4, Red Blood Count 4.25L, Hemoglobin 12.7L, Hematocrit 37L, Mean Corpuscular Volume 86, Mean Corpuscular Hemoglobin 30, Mean Corpuscular Hemoglobin Concent 35, Red Cell Distribution Width 11.7, Platelet Count 183, Mean Platelet Volume 9.4, Neutrophils (%) (Auto) 77H, Lymphocytes (%) (Auto) 10L , Monocytes (%) (Auto) 12, Eosinophils (%) (Auto) 1, Basophils (%) (Auto) 0, Neutrophils # (Auto) 7.2, Lymphocytes # (Auto) 1.0, Monocytes # (Auto) 1.1H, Eosinophils # (Auto) 0.1, Basophils # (Auto) 0.0, Sodium Level 133L, Potassium Level 3.4L, Chloride Level 100, Carbon Dioxide Level 24, Anion Gap 9, Blood Urea Nitrogen 7, Creatinine 0.79, Estimat Glomerular Filtration Rate > 60, BUN/Creatinine Ratio 9, Glucose Level 98, Calcium Level 8.4L, Corrected Calcium 9.3, Total Bilirubin 0.5, Aspartate Amino Transf (AST/SGOT) 28, Alanine Ami notransferase (ALT/SGPT) 18, Alkaline Phosphatase 79, Total Protein 5.3L, Albumin 2.9L Microbiology 12/22/18 Blood Culture - Preliminary, Resulted No growth Assessment/Plan Assessment/Plan Assess & Plan/Chief Complaint LEFT LOWER LOBE PNEUMONIA COLONIC DISTENTION HYPERTENSION PARANOID SCHIZOPHRENIA TOBACCOISM RHABDOMYOLYSIS TARDIVE DYSKINESIA LEFT LOWER LOBE PNEUMONIA - PT ON IV ANTIBIOTICS, MONITOR CHEST XRAYS. COLONIC DISTENTION - DEFER TO DR. AYOUB HYPERTENSION - ANTIHYPERTENSIVES NEEDED TO GAIN CONTROL OF PRESSURE. PARANOID SCHIZOPHRENIA - HOLDING ANTIPSYCHOTIC MEDICATIONS AT THIS TIME DUE TO HIS TARDIVE DYSKINESIA AND RHABDOMYOLYSIS - HE WILL NEED INPATIENT ADMISSION TO A PSYCHIATRIC UNIT FOR MEDICATION ADJUSTMENTS. TOBACCOISM Clinical Quality Measures DVT/VTE Risk/Contraindication: Risk Factor Score Per Nursin RFS Level Per Nursing on Admit: 4+=Very High FAUSTO BEACH MD Dec 24, 2018 08:32
[2018-12-24] MEDS: clonazePAM 1 MG (KlonoPIN) TAB PO SCH ×3 (09:16→20:31)
[2018-12-24] MEDS: BENZTROPINE MESYLATE 1 MG (COGENTIN) TAB PO SCH ×2 (09:16→20:32)
[2018-12-24] MEDS: meTOprolol TARTRATE 25 MG (LOPRESSOR) TABLET PO SCH ×2 (09:16→20:31)
[2018-12-24] MEDS: NICOTINE 21 MG (NICODERM) PATCH TD SCH ×2 (09:17→10:21)
[2018-12-24] MEDS: NICOTINE PATCH REMOVAL TP SCH (09:17)
[2018-12-24] MEDS: buPROPion SR 100 MG (WELLBUTRIN SR) TAB PO SCH ×2 (09:17→20:32)
--- NOTE | 2018-12-24 11:51 | NUR ---
[employer] Post Order Clerk offered prayer and blessing to pt's while pt slept.
--- NOTE | 2018-12-24 12:59 | NUR ---
CM/SS, respond to consult after visit with Dr. Vitale this a.m. She has requested [facility] again assess patient for admission for Rx review due to suspected influence on chemistry panel. Referral initiated with [facility]/Pushpa Haque from Unit visited patient here last hospitalization. Will request that Haider partner with Dr. Vitale, Dr. James, and Care Management team in process description writer's absence regarding next steps.
--- NOTE | 2018-12-24 13:33 | NUR ---
FAMILY HAS A LOT OF QUESTIONS REGARDING [facility]. ENCOURAGED THEM TO TALK WITH SOCIAL WORK REGARDING THESE MATTERS THEY CAN BETTER ADVISE AND INSTRUCT THEM ON THE PROCESS.
--- NOTE | 2018-12-24 14:39 | NUR ---
PT BECOMING MORE RESTLESS AND CONTINUES TO SET BED ALARM OFF. MESSAGE TO DR. BEACH ABOUT PT NOT RECEIVING ANY PSYCH MEDS THIS MORNING. FAMILY CONCERNED HE WILL GET WORSE TONIGHT. ADVISED FAMILY I AM WAITING FOR TO CONTACT BACK.
--- NOTE | 2018-12-24 16:38 | Diagnostic Imaging Report ---
INDICATION: Abdominal distention. TIME OF EXAM: 01:36 p.m. Correlation is made with prior study one day earlier. FINDINGS: The degree of gaseous distention to the colon has improved since yesterday. There continues to be moderate distention of the sigmoid. No wall thickening or pneumatosis is seen. IMPRESSION: Improved gaseous distention to the colon when compared with exam one day earlier. Dictated by: Dictated on workstation # [id number]
[2018-12-24] MEDS: CEFEPIME 2,000 MG/SWFI 20 ML IV PUSH IV SCH ×2 (17:26)
[2018-12-24] MEDS: ENOXAPARIN 40 MG/0.4 ML (LOVENOX) SYR SC SCH (20:32)
--- NOTE | 2018-12-24 20:37 | Progress Note ---
Subjective Date Seen by a Provider: Dec 24, 2018 Time Seen by a Provider: 08:41 Subjective/Events-last exam patient with abdomen slightly less distended. Does not seem to be having much discomfort or pain. Patient not verbalizing. Abdominal x rays have demonstrated less distention of the colon. Can't rule out distal obstruction. Focused Exam Lactate Level 12/22/18 15:35: Lactic Acid Level 1.40 12/23/18 05:00: Lactic Acid Level 0.83 Objective Exam Vital Signs Date Time Temp Pulse Resp B/P (MAP) Pulse Ox O2 Delivery O2 Flow Rate FiO2 12/24/18 20:15 92 Room Air 12/24/18 19:51 99.6 86 22 166/90 (115) 96 Room Air 12/24/18 19:00 90 12/24/18 16:00 98.5 91 18 156/75 (102) 95 Nasal Cannula 2.00 12/24/18 15:37 92 Nasal Cannula 2.00 12/24/18 12:46 98.0 74 20 179/77 (111) 100 Nasal Cannula 3.00 12/24/18 12:46 84 12/24/18 11:40 96 Nasal Cannula 2.00 12/24/18 08:10 93 Nasal Cannula 2.00 12/24/18 08:00 98.4 73 18 160/79 (106) 97 Nasal Cannula 2.00 12/24/18 08:00 96 Nasal Cannula 2.00 12/24/18 07:03 65 12/24/18 04:00 98.0 72 22 159/77 (104) 96 Nasal Cannula 2.00 12/24/18 01:00 76 12/24/18 00:00 97.8 66 20 132/79 (96) 97 Nasal Cannula 2.00 I & O 12/24/18 07:00 Intake Total 3270 ml Output Total 2875 ml Balance 395 ml Capillary Refill : Less Than 3 Seconds General Appearance: No Apparent Distress, WD/WN HEENT: Normal ENT Inspection Neck: Normal Inspection, Non Tender Respiratory: Lungs Clear, No Accessory Muscle Use Cardiovascular: Regular Rate, Rhythm, No Murmur Gastrointestinal: no organomegaly, no pulsatile mass, distended (no significant tenderness slightly less distended than yesterday) Extremity: Pedal Edema (TRACE BILATERALLY) Neurologic/Psychiatric: Alert (moves extremities nonverbal), Other Skin: Normal Color, Warm/Dry Lymphatic: No Adenopathy Results Lab Laboratory Tests 12/24/18 04:50: White Blood Count 9.4, Red Blood Count 4.25L, Hemoglobin 12.7L, Hematocrit 37L, Mean Corpuscular Volume 86, Mean Corpuscular Hemoglobin 30, Mean Corpuscular Hemoglobin Concent 35, Red Cell Distribution Width 11.7, Platelet Count 183, Mean Platelet Volume 9.4, Neutrophils (%) (Auto) 77H, Lymphocytes (%) (Auto) 10L , Monocytes (%) (Auto) 12, Eosinophils (%) (Auto) 1, Basophils (%) (Auto) 0, Neutrophils # (Auto) 7.2, Lymphocytes # (Auto) 1.0, Monocytes # (Auto) 1.1H, Eosinophils # (Auto) 0.1, Basophils # (Auto) 0.0, Sodium Level 133L, Potassium Level 3.4L, Chloride Level 100, Carbon Dioxide Level 24, Anion Gap 9, Blood Urea Nitrogen 7, Creatinine 0.79, Estimat Glomerular Filtration Rate > 60, BUN/Creatinine Ratio 9, Glucose Level 98, Calcium Level 8.4L, Corrected Calcium 9.3, Total Bilirubin 0.5, Aspartate Amino Transf (AST/SGOT) 28, Alanine Aminotransferase (ALT/SGPT) 18, Alkaline Phosphatase 79, Total Protein 5.3L, Albumin 2.9L Microbiology 12/22/18 Blood Culture - Preliminary, Resulted No growth 12/24/18 C. difficile GDH Antigen & Toxins - Final, Complete Assessment/Plan Assessment/Plan Assessment/Plan Left lower lobe pneumonia. 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 Leukocytosis. Hypokalemia. Bladder distention. Paranoid schizophrenia. Dementia. abdomen is less distended minimally discussed doing flexible sigmoidoscopy to rule out distal obstruction tomorrow fleets enema to clear no surgical intervention at this time will follow medical management Clinical Quality Measures DVT/VTE Risk/Contraindication: Risk Factor Score Per Nursin RFS Level Per Nursing on Admit: 4+=Very High MANAN AYOUB DO Dec 24, 2018 20:37
[2018-12-25 04:39] VITALS: BP 145/73
[2018-12-25] MEDS: D5 1/2 NS W/KCL 20 MEQ/L 1,000 ML IV SCH ×3 (05:40→20:20)
[2018-12-25] MEDS: RT-ALBUTEROL/IPRATROPIUM 3 ML (DUONEB) VIAL INH SCH ×4 (07:00→18:24)
[2018-12-25 08:00] VITALS: BP 163/90
[2018-12-25] MEDS: clonazePAM 1 MG (KlonoPIN) TAB PO SCH ×3 (09:00→20:21)
[2018-12-25] MEDS: buPROPion SR 100 MG (WELLBUTRIN SR) TAB PO SCH ×2 (09:00→20:21)
[2018-12-25] MEDS: BENZTROPINE MESYLATE 1 MG (COGENTIN) TAB PO SCH ×2 (09:00→20:21)
--- NOTE | 2018-12-25 09:27 | NUR ---
Fr Karis gee pt yesterday.
[2018-12-25] MEDS: NICOTINE PATCH REMOVAL TP SCH (10:03)
[2018-12-25] MEDS: NICOTINE 21 MG (NICODERM) PATCH TD SCH (10:03)
[2018-12-25 10:27] VITALS: BP 171/77
--- NOTE | 2018-12-25 11:00 | Progress Note ---
Subjective Date Seen by a Provider: Dec 25, 2018 Time Seen by a Provider: 10:58 Subjective/Events-last exam Sister states couple large bm's last night. Abdomen less distended. Currently NPO Planning for flex sig today. Focused Exam Lactate Level 12/22/18 15:35: Lactic Acid Level 1.40 12/23/18 05:00: Lactic Acid Level 0.83 Objective Exam Vital Signs Date Time Temp Pulse Resp B/P (MAP) Pulse Ox O2 Delivery O2 Flow Rate FiO2 12/25/18 10:41 91 Room Air 12/25/18 10:27 171/77 (108) 12/25/18 08:00 98.4 71 18 163/90 (114) 97 Room Air 12/25/18 07:18 85 12/25/18 04:39 97.6 70 21 145/73 (97) 93 Room Air 12/25/18 01:00 75 12/24/18 23:25 97.7 68 21 136/69 (91) 94 Room Air 12/24/18 20:50 Room Air 12/24/18 20:15 92 Room Air 12/24/18 19:51 99.6 86 22 166/90 (115) 96 Room Air 12/24/18 19:00 90 12/24/18 16:00 98.5 91 18 156/75 (102) 95 Nasal Cannula 2.00 12/24/18 15:37 92 Nasal Cannula 2.00 12/24/18 12:46 98.0 74 20 179/77 (111) 100 Nasal Cannula 3.00 12/24/18 12:46 84 12/24/18 11:40 96 Nasal Cannula 2.00 I & O 12/25/18 07:00 Intake Total 3530 ml Output Total 5675 ml Balance -2145 ml Capillary Refill : Less Than 3 Seconds General Appearance: No Apparent Distress, WD/WN HEENT: Normal ENT Inspection Neck: Normal Inspection, Non Tender Respiratory: Lungs Clear, No Accessory Muscle Use Cardiovascular: Regular Rate, Rhythm, No Murmur Gastrointestinal: no organomegaly, no pulsatile mass, distended (no significant tenderness slightly less distended than yesterday) Extremity: Pedal Edema (TRACE BILATERALLY) Neurologic/Psychiatric: Alert (moves extremities nonverbal), Other Skin: Normal Color, Warm/Dry Lymphatic: No Adenopathy Results Lab Microbiology 12/22/18 Blood Culture - Preliminary, Resulted No growth 12/24/18 C. difficile GDH Antigen & Toxins - Final, Complete Assessment/Plan Assessment/Plan Assessment/Plan Left lower lobe pneumonia. 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 Leukocytosis. Hypokalemia. Bladder distention. Paranoid schizophrenia. Dementia. abdomen slowly improving discussed doing flexible sigmoidoscopy to rule out distal obstruction today fleets enema to clear no surgical intervention at this time NPO medical management Clinical Quality Measures DVT/VTE Risk/Contraindication: Risk Factor Score Per Nursin RFS Level Per Nursing on Admit: 4+=Very High MANAN AYOUB DO Dec 25, 2018 11:00
[2018-12-25 12:59] VITALS: BP 166/78
[2018-12-25] MEDS ORDERED: meTOprolol TARTRATE 25 MG (LOPRESSOR) TABLET PO NR (13:30)
--- NOTE | 2018-12-25 13:30 | Progress Note ---
Subjective Date Seen by a Provider: Dec 25, 2018 Time Seen by a Provider: 10:40 Subjective/Events-last exam PT IS STILL UNABLE TO PARTICIPATE IN CONVERSATION AND HIS FAMILY IS IN THE ROOM. HIS SISTER IS CONCERNED ABOUT ALEYDA WAKING UP MORE AND POSSIBLY BECOMING COMBATIVE. HE REPORTEDLY HAS BEEN MOVING HIS ARMS MORE AND IS MORE RESTLESS. Review of Systems General: Fatigue HEENT: No Head Aches Pulmonary: No Dyspnea, No Cough Cardiovascular: No: Edema Gastrointestinal: No: Vomiting Neurological: Weakness, Confusion Focused Exam Lactate Level 12/22/18 15:35: Lactic Acid Level 1.40 12/23/18 05:00: Lactic Acid Level 0.83 Objective Exam Last Set of Vital Signs Vital Signs Date Time Temp Pulse Resp B/P (MAP) Pulse Ox O2 Delivery O2 Flow Rate FiO2 12/25/18 12:59 97.6 87 18 166/78 (107) 96 Room Air 12/24/18 16:00 2.00 12/23/18 07:20 28 Capillary Refill : Less Than 3 Seconds I&O Intake and Output 12/25/18 00:00 Intake Total 4530 ml Output Total 5525 ml Balance -995 ml Intake Oral 510 ml IV Total 4020 ml Output Urine Total 5525 ml # Bowel Movements 5 General: Other (AROUSABLE, BUT NOT ALERT) HEENT: Atraumatic Neck: Supple Lungs: Clear to Auscultation Heart: Regular Rate Abdomen: Normal Bowel Sounds, Soft Neuro: Other (MOVING ARMS AND LEGS RESTLESSLY) Psych/Mental Status: Other (CONFUSED) Results Lab Microbiology 12/22/18 Blood Culture - Preliminary, Resulted No growth 12/24/18 C. difficile GDH Antigen & Toxins - Final, Complete Assessment/Plan Assessment/Plan Assess & Plan/Chief Complaint LEFT LOWER LOBE PNEUMONIA COLONIC DISTENTION HYPERTENSION PARANOID SCHIZOPHRENIA TOBACCOISM RHABDOMYOLYSIS TARDIVE DYSKINESIA LEFT LOWER LOBE PNEUMONIA - PT ON IV ANTIBIOTICS, MONITOR CHEST XRAYS - CLEARING PER LAST CHEST XRAY. COLONIC DISTENTION - DEFER TO DR. AYOUB - PLAN FOR FLEX SIG TODAY. HYPERTENSION - ANTIHYPERTENSIVES NEEDED TO GAIN CONTROL OF PRESSURE. PARANOID SCHIZOPHRENIA - HOLDING ANTIPSYCHOTIC MEDICATIONS AT THIS TIME DUE TO HIS TARDIVE DYSKINESIA AND RHABDOMYOLYSIS - HE WILL NEED INPATIENT ADMISSION TO A PSYCHIATRIC UNIT FOR MEDICATION ADJUSTMENTS. I HAVE BEEN INFORMED THAT HE WILL NOT BE ACCEPTED TO [facility] BECAUSE OF A CONVERSATION WITH HIS SIBLING INDICATING THAT THEY WANTED TO MAKE SURE THAT DR. HANNA WAS KEPT IN THE LOOP AND MEDICATION CHANGES WERE APPROVED BY DR. HANNA. THE SIBLINGS WERE UPSET WHEN I TOLD THEM THIS - THEY STATED THAT THEY DID NOT WANT TO KEEP ALEYDA FROM GETTING TO A FACILITY THAT HE NEEDED TO BE ADMITTED TO AND THEY WERE NOT TRYING TO BE DEMANDING, JUST ADVOCATING THAT DR. HANNA BE KEPT IN THE LOOP ON HIS CARE. TOBACCOISM Clinical Quality Measures DVT/VTE Risk/Contraindication: Risk Factor Score Per Nursin RFS Level Per Nursing on Admit: 4+=Very High FAUSTO BEACH MD Dec 25, 2018 13:30
[2018-12-25] MEDS ORDERED: FLEET ENEMA ADULT 1 EA BTL ONE ×2 (15:05→15:28)
[2018-12-25] MEDS ORDERED: LACTATED RINGERS 1,000 ML IV ONE (15:10)
[2018-12-25] MEDS: FLEET ENEMA ADULT 1 EA BTL PR PRN ×2 (15:15→15:35)
[2018-12-25] MEDS ORDERED: PROPOFOL INJECTION 50 ML IV ONE (16:06)
[2018-12-25 16:50] VITALS: BP 173/84
[2018-12-25] MEDS: CEFEPIME 2,000 MG/SWFI 20 ML IV PUSH IV SCH ×2 (17:26)
[2018-12-25 19:56] VITALS: BP 119/70
[2018-12-25] MEDS: ACETAMINOPHEN 500 MG TAB (TYLENOL) PO PRN (20:20)
[2018-12-25] MEDS: ENOXAPARIN 40 MG/0.4 ML (LOVENOX) SYR SC SCH (20:20)
[2018-12-25] MEDS: meTOprolol TARTRATE 50 MG (LOPRESSOR) TAB PO SCH (20:21)
[2018-12-25] MEDS ORDERED: meTOprolol TARTRATE 25 MG (LOPRESSOR) TABLET PO SCH (21:00)
--- NOTE | 2018-12-25 21:19 | OPERATIVE REPORT ---
DATE OF SERVICE: 12/25/2018 PREOPERATIVE DIAGNOSIS: Colonic distention, possible distal colonic obstruction. POSTOPERATIVE DIAGNOSIS: Normal rectum and sigmoid. PROCEDURE: Flexible sigmoidoscopy. SURGEON: Manan Mc DO ANESTHESIA: Per INSTITUTION LIBRARIAN. ESTIMATED BLOOD LOSS: None. COMPLICATIONS: None. INDICATIONS: The patient is a 68-year-old male, who has had colonic distention with a possibility of a distal colonic obstruction. Risks and benefits of flexible sigmoidoscopy were discussed with the patient's family, who wished to proceed with procedure. Consent was signed in the chart. DESCRIPTION OF PROCEDURE: The patient was taken to the endoscopy suite, placed in left lateral recumbent position. Timeout was performed. Enemas had been performed prior for prep. Digital rectal exam was performed, which is demonstrating significant hemorrhoidal disease. Scope was inserted in the rectum and began to be advanced through the rectum into the sigmoid colon and into the portion of the descending colon. Still a fair amount of stool throughout the descending and a portion of the sigmoid colon. Scope was continuously retracted back. There was no evidence of any obstruction or narrowing. The colon was irrigated and suctioned trying to reduce the amount of stool present throughout the descending and sigmoid colon, which the stool was fairly hard and difficult to remove for visual improvement with these measures. Scope was slowly retracted back. There were no polyps, masses, ulcerations or obstructions visualized in the descending, sigmoid and the rectum. Once at the rectum, scope was inserted and retracted multiple times, noting no other pathology. Scope was then slowly retracted back until completely removed. The patient tolerated procedure well without any complications. RECOMMENDATIONS: The patient to continue to monitor for any obstructive symptoms. Also to continue to monitor for increasing amount of distention of the colon. If he has any return of these symptoms, he should be re-evaluated at that time. Job ID: [id number] DocumentID: [id number] Dictated Date: 12/25/2018 19:18:04 Ornamental Rail Installer Date: 12/25/2018 20:38:44 Dictated By: MANAN MC DO [facility] HOSPITALJeremy
[2018-12-26] VITALS: BP 124/53
[2018-12-26] MEDS: D5 1/2 NS W/KCL 20 MEQ/L 1,000 ML IV SCH ×3 (03:10→17:42)
[2018-12-26 03:43] VITALS: BP 138/72
[2018-12-26 05:05] LABS: HEMOGLOBIN 13.3 G/DL (13.3-17.7); MEAN PLATELET VOLUME 9.8 FL (7.4-10.4); RED CELL DISTRIBUTION WIDTH 11.7 % (10.0-14.5); WHITE BLOOD COUNT 9.6 10^3/uL (4.3-11.0)
[2018-12-26 05:32] LABS: ALANINE AMINOTRANSFERASE 32 U/L (0-55); ALKALINE PHOSPHATASE 72 U/L (40-136); BILIRUBIN,TOTAL 0.4 MG/DL (0.1-1.0); BUN/CREATININE RATIO 12; CALCIUM 8.7 MG/DL (8.5-10.1); CARBON DIOXIDE 24 MMOL/L (21-32); CHLORIDE 98 MMOL/L (98-107); CREATINE KINASE 378 U/L (30-200); CREATININE SERUM 0.83 MG/DL (0.60-1.30); GFR ESTIMATED > 60; GLUCOSE 88 MG/DL (70-105); POTASSIUM 3.7 MMOL/L (3.6-5.0); SODIUM 132 MMOL/L (135-145); TOTAL PROTEIN 5.6 GM/DL (6.4-8.2)
[2018-12-26] MEDS: RT-ALBUTEROL/IPRATROPIUM 3 ML (DUONEB) VIAL INH SCH ×2 (07:33→19:34)
[2018-12-26 08:00] VITALS: BP 157/77
[2018-12-26] MEDS: meTOprolol TARTRATE 50 MG (LOPRESSOR) TAB PO SCH ×2 (10:03→20:26)
[2018-12-26] MEDS: BENZTROPINE MESYLATE 1 MG (COGENTIN) TAB PO SCH ×2 (10:03→20:26)
[2018-12-26] MEDS: NICOTINE 21 MG (NICODERM) PATCH TD SCH (10:03)
[2018-12-26] MEDS: buPROPion SR 100 MG (WELLBUTRIN SR) TAB PO SCH ×2 (10:03→20:26)
[2018-12-26] MEDS: NICOTINE PATCH REMOVAL TP SCH (10:03)
[2018-12-26] MEDS: clonazePAM 1 MG (KlonoPIN) TAB PO SCH ×3 (10:03→20:26)
[2018-12-26 12:00] VITALS: BP 135/68
--- NOTE | 2018-12-26 12:35 | Progress Note-Hospitalist ---
Subjective HPI/CC On Admission Date Seen by Provider: Dec 26, 2018 Time Seen by Provider: 10:30 Subjective/Events-last exam Patient sleeping with sister at bedside Sister concerned about his coughing but he is being treated for pneumonia Has shaking episodes every once while she is concerned about that Very complex issues considering the severity of his mental illness and requiring medication discontinuation due to rhabdomyolysis Overall prognosis is guarded Check meds and labs Nursing has no concerns Review of Systems General: Fatigue Pulmonary: Cough Objective Exam Vital Signs Vital Signs Date Time Temp Pulse Resp B/P (MAP) Pulse Ox O2 Delivery O2 Flow Rate FiO2 12/26/18 13:00 58 12/26/18 12:00 99.0 18 135/68 (90) 96 Room Air 12/26/18 09:50 21 12/25/18 16:35 10 Capillary Refill : Less Than 3 Seconds General Appearance: No Apparent Distress, WD/WN HEENT: Normal ENT Inspection Neck: Normal Inspection, Non Tender Respiratory: Lungs Clear, No Accessory Muscle Use Cardiovascular: Regular Rate, Rhythm, No Murmur Gastrointestinal: Soft, Distended Back: No CVA Tenderness Extremity: Pedal Edema (TRACE BILATERALLY) Neurologic/Psychiatric: Alert (moves extremities nonverbal), Other Skin: Normal Color, Warm/Dry Lymphatic: No Adenopathy Results/Procedures Lab Laboratory Tests 12/26/18 04:15 12/26/18 04:25 Patient resulted labs reviewed. Assessment/Plan Assessment and Plan Assess & Plan/Chief Complaint Assessment: LLL Pneumonia on abx Ogilvies syndrome s/p flex sigmoid HTN Rhabdomyolysis Severe Schizophrenia Tardive Dyskinesia Plan: Ambulate Psych treatment needed Diagnosis/Problems Diagnosis/Problems (1) LLL pneumonia Status: Acute Qualifiers: Pneumonia type: due to unspecified organism Qualified Codes: J18.1 - Lobar pneumonia, unspecified organism (2) Mild dehydration Status: Acute (3) Elevated CK Status: Acute (4) Elevated myoglobin level Status: Acute (5) Elevated C-reactive protein (CRP) Status: Acute (6) Altered mental status Status: Acute (7) Hypoxia Status: Acute (8) Schizophrenia Status: Acute (9) Generalized weakness Status: Acute (10) Altered mental status Status: Acute Clinical Quality Measures DVT/VTE Risk/Contraindication: Risk Factor Score Per Nursin RFS Level Per Nursing on Admit: 4+=Very High AYLIN MARTINEZ DO Dec 26, 2018 12:35
--- NOTE | 2018-12-26 14:31 | Progress Note ---
Subjective Time Seen by a Provider: 13:42 Subjective/Events-last exam Pt seen and examined, sleeping comfortably in bed. Family at bedside states he looks normal; "normal for the hospital". He denies any abdominal pain and they state his belly is much smaller. Review of Systems General: No Chills, No Night Sweats Pulmonary: No Dyspnea, No Cough Cardiovascular: No: Chest Pain, Palpitations Gastrointestinal: No: Nausea, Vomiting, Abdominal Pain Objective Exam Vital Signs Date Time Temp Pulse Resp B/P (MAP) Pulse Ox O2 Delivery O2 Flow Rate FiO2 12/26/18 13:00 58 12/26/18 12:00 99.0 59 18 135/68 (90) 96 Room Air 12/26/18 09:50 84 94 21 12/26/18 09:00 Room Air 12/26/18 08:00 98.6 76 20 157/77 (103) 96 Room Air 12/26/18 07:34 92 Room Air 12/26/18 07:00 77 12/26/18 03:43 99.2 74 21 138/72 (94) 94 Room Air 12/26/18 01:00 68 12/26/18 00:00 98.8 63 22 124/53 (76) 93 Room Air 12/25/18 20:20 101.6 12/25/18 20:00 Room Air 12/25/18 19:56 101.6 105 20 119/70 (86) 93 Room Air 12/25/18 19:00 104 12/25/18 18:25 Room Air 12/25/18 16:50 97.3 92 20 173/84 (113) 98 Room Air 12/25/18 16:35 79 16 97 OxyMask 10 12/25/18 16:30 79 16 97 OxyMask 10 I & O 12/26/18 07:00 Intake Total 1000 ml Output Total 950 ml Balance 50 ml Capillary Refill : Less Than 3 Seconds General Appearance: No Apparent Distress, WD/WN Respiratory: Lungs Clear, No Accessory Muscle Use Cardiovascular: Regular Rate, Rhythm, No Murmur Gastrointestinal: soft, no organomegaly, no pulsatile mass, distended Extremity: Pedal Edema (TRACE BILATERALLY) Neurologic/Psychiatric: Alert (moves extremities nonverbal) Skin: Normal Color, Warm/Dry Lymphatic: No Adenopathy Results Lab Laboratory Tests 12/26/18 04:15: Sodium Level 132L, Potassium Level 3.7, Chloride Level 98, Carbon Dioxide Level 24, Anion Gap 10, Blood Urea Nitrogen 10, Creatinine 0.83, Estimat Glomerular Filtration Rate > 60, BUN/Creatinine Ratio 12, Glucose Level 88, Calcium Level 8.7, Corrected Calcium 9.5, Total Bilirubin 0.4, Aspartate Amino Transf (AST/SGOT) 39H, Alanine Aminotransferase (ALT/SGPT) 32, Alkaline Phosphatase 72, Total Creatine Kinase 378H, Total Protein 5.6L, Albumin 3.0L 12/26/18 04:25: White Blood Count 9.6, Red Blood Count 4.42, Hemoglobin 13.3, Hematocrit 37L, Mean Corpuscular Volume 84, Mean Corpuscular Hemoglobin 30, Mean Corpuscular Hemoglobin Concent 36, Red Cell Distribution Width 11.7, Platelet Count 251, Mean Platelet Volume 9.8 Microbiology 12/22/18 Blood Culture - Preliminary, Resulted No growth 12/24/18 C. difficile GDH Antigen & Toxins - Final, Complete Assessment/Plan Assessment/Plan Assessment/Plan LLL Pneumonia Ogilvies syndrome - nothing seen in sigmoid area to cause obstruction HTN Hx of Schizophrenia Tardive Dykinesia Plan is to continue IV ABX for pneumonia and follow on CXR. Ambulating will help with large bowel ileus. Continue all other home meds for pt's other medical conditions. No other surgical intervention needed at this time. Clinical Quality Measures DVT/VTE Risk/Contraindication: Risk Factor Score Per Nursin RFS Level Per Nursing on Admit: 4+=Very High MARTÍNEZ JAIME DO Dec 26, 2018 14:31
[2018-12-26 16:00] VITALS: BP 138/65
[2018-12-26] MEDS: CEFEPIME 2,000 MG/SWFI 20 ML IV PUSH IV SCH ×2 (17:42)
[2018-12-26 19:58] VITALS: BP 158/73
[2018-12-26] MEDS: ENOXAPARIN 40 MG/0.4 ML (LOVENOX) SYR SC SCH (20:27)
[2018-12-27] MEDS: D5 1/2 NS W/KCL 20 MEQ/L 1,000 ML IV SCH ×4 (00:14→20:33)
[2018-12-27 00:32] VITALS: BP 172/94
[2018-12-27 04:00] VITALS: BP 145/74
[2018-12-27 08:00] VITALS: BP 138/63
[2018-12-27] MEDS: NICOTINE 21 MG (NICODERM) PATCH TD SCH (08:50)
[2018-12-27] MEDS: clonazePAM 1 MG (KlonoPIN) TAB PO SCH ×3 (08:51→21:37)
[2018-12-27] MEDS: meTOprolol TARTRATE 50 MG (LOPRESSOR) TAB PO SCH ×2 (08:51→21:37)
[2018-12-27] MEDS: NICOTINE PATCH REMOVAL TP SCH (08:51)
[2018-12-27] MEDS: buPROPion SR 100 MG (WELLBUTRIN SR) TAB PO SCH ×2 (08:51→21:37)
[2018-12-27] MEDS: BENZTROPINE MESYLATE 1 MG (COGENTIN) TAB PO SCH ×2 (08:51→21:37)
--- NOTE | 2018-12-27 09:37 | Progress Note ---
Subjective Time Seen by a Provider: 09:12 Subjective/Events-last exam Pt seen with family at bedside, they state no changes. He is sleepy, but does not appear to be in any pain. Family states still no BM. Review of Systems General: No Chills, No Night Sweats Pulmonary: No Dyspnea; Cough Cardiovascular: No: Chest Pain, Palpitations Gastrointestinal: No: Nausea, Vomiting, Abdominal Pain Objective Exam Vital Signs Date Time Temp Pulse Resp B/P (MAP) Pulse Ox O2 Delivery O2 Flow Rate FiO2 12/27/18 07:03 72 12/27/18 04:00 98.5 62 23 145/74 (97) 96 Room Air 12/27/18 01:00 61 12/27/18 00:32 98.8 59 20 172/94 (120) 95 Room Air 12/26/18 20:30 Room Air 12/26/18 19:58 98.6 61 18 158/73 (101) 94 Room Air 12/26/18 19:34 94 Room Air 12/26/18 19:00 65 12/26/18 16:00 98.5 65 22 138/65 (89) 98 Room Air 12/26/18 13:00 58 12/26/18 12:00 99.0 59 18 135/68 (90) 96 Room Air 12/26/18 09:50 84 94 21 I & O 12/27/18 07:00 Intake Total 1710 ml Output Total 3925 ml Balance -2215 ml Capillary Refill : Less Than 3 Seconds General Appearance: No Apparent Distress, WD/WN Neck: Normal Inspection, Non Tender Respiratory: Lungs Clear, No Accessory Muscle Use, No Respiratory Distress Cardiovascular: Regular Rate, Rhythm, No Murmur Gastrointestinal: non tender, soft (does not appear to be distended at all, very soft), no organomegaly, no pulsatile mass Extremity: Pedal Edema (TRACE BILATERALLY) Neurologic/Psychiatric: Alert (moves extremities nonverbal), Other Skin: Normal Color, Warm/Dry Lymphatic: No Adenopathy Results Lab Microbiology 12/22/18 Blood Culture - Preliminary, Resulted No growth 12/24/18 C. difficile GDH Antigen & Toxins - Final, Complete 12/24/18 MRSA Screen - Final, Complete Assessment/Plan Assessment/Plan Assessment/Plan LLL Pneumonia Ogilvies syndrome - resolved HTN Hx of Schizophrenia Tardive Dykinesia Plan is to continue IV ABX for pneumonia and follow on CXR. Will start soft diet. Continue all other home meds for pt's other medical conditions. No other surgical intervention needed at this time. Clinical Quality Measures DVT/VTE Risk/Contraindication: Risk Factor Score Per Nursin RFS Level Per Nursing on Admit: 4+=Very High MARTÍNEZ JAIME DO Dec 27, 2018 09:37
--- NOTE | 2018-12-27 11:00 | Progress Note-Hospitalist ---
Subjective HPI/CC On Admission Date Seen by Provider: Dec 27, 2018 Time Seen by Provider: 10:00 Subjective/Events-last exam Patient about the same but is waking up little more Advancing diet to a soft diet rather than just clear liquids which will be helpful Lactulose twice daily will be started to start bowel movements We'll discontinue telemetry since not necessary to monitor and that way right now Sister at the bedside along with brother and sister asked me the same question about the cough that I readdressed yesterday so she seems to have very poor short-term memory recall Patient appears to be very debilitated and unsure what the next step will be for him Tolerating antibiotics well We'll check labs in the morning Review of Systems General: Fatigue Pulmonary: Cough Neurological: Confusion Objective Exam Vital Signs Vital Signs Date Time Temp Pulse Resp B/P (MAP) Pulse Ox O2 Delivery O2 Flow Rate FiO2 12/27/18 08:00 Room Air 12/27/18 08:00 98.6 66 18 138/63 (88) 92 12/26/18 09:50 21 12/25/18 16:35 10 Capillary Refill : Less Than 3 Seconds General Appearance: No Apparent Distress, WD/WN, Chronically ill Neck: Normal Inspection, Non Tender Respiratory: Lungs Clear, No Accessory Muscle Use, No Respiratory Distress Cardiovascular: Regular Rate, Rhythm, No Murmur Gastrointestinal: Soft, Distended Back: No CVA Tenderness Extremity: Pedal Edema (TRACE BILATERALLY) Neurologic/Psychiatric: Alert (moves extremities nonverbal), Other Skin: Normal Color, Warm/Dry Lymphatic: No Adenopathy Results/Procedures Lab Patient resulted labs reviewed. Assessment/Plan Assessment and Plan Assess & Plan/Chief Complaint Assessment: LLL Pneumonia on abx Ogilvies syndrome s/p flex sigmoid HTN Rhabdomyolysis Severe Schizophrenia Tardive Dyskinesia Plan: Ambulate Psych treatment needed Lactulose to begin bowel function Soft diet advanced DC telemetry Very debilitated Diagnosis/Problems Diagnosis/Problems (1) LLL pneumonia Status: Acute Qualifiers: Pneumonia type: due to unspecified organism Qualified Codes: J18.1 - Lobar pneumonia, unspecified organism (2) Mild dehydration Status: Acute (3) Elevated CK Status: Acute (4) Elevated myoglobin level Status: Acute (5) Elevated C-reactive protein (CRP) Status: Acute (6) Altered mental status Status: Acute (7) Hypoxia Status: Acute (8) Schizophrenia Status: Acute (9) Generalized weakness Status: Acute (10) Altered mental status Status: Acute Clinical Quality Measures DVT/VTE Risk/Contraindication: Risk Factor Score Per Nursin RFS Level Per Nursing on Admit: 4+=Very High AYLIN MARTINEZ DO Dec 27, 2018 10:59
[2018-12-27] MEDS: RT-ALBUTEROL/IPRATROPIUM 3 ML (DUONEB) VIAL INH SCH ×2 (11:40→19:15)
[2018-12-27 12:00] VITALS: BP 164/96
[2018-12-27 16:00] VITALS: BP 167/83
[2018-12-27] MEDS: CEFEPIME 2,000 MG/SWFI 20 ML IV PUSH IV SCH ×2 (17:52)
[2018-12-27 20:00] VITALS: BP 146/74
[2018-12-27] MEDS: ENOXAPARIN 40 MG/0.4 ML (LOVENOX) SYR SC SCH (21:37)
[2018-12-28] VITALS (7 sets, daily range): BP systolic 120–169; BP diastolic 62–84
[2018-12-28] MEDS: D5 1/2 NS W/KCL 20 MEQ/L 1,000 ML IV SCH ×2 (03:21→10:03)
[2018-12-28 05:38] LABS: BASOPHILS % (AUTO) 0 % (0-10); EOSINOPHILS # (AUTO) 0.2 10^3/uL (0.0-0.3); EOSINOPHILS % (AUTO) 2 % (0-10); HEMATOCRIT 39 % (40-54); HEMOGLOBIN 13.6 G/DL (13.3-17.7); LYMPHOCYTES # (AUTO) 1.1 X 10^3 (1.0-4.0); LYMPHOCYTES % (AUTO) 15 % (12-44); MEAN CORPUSCULAR HEMOGLOBIN 29 PG (25-34); MEAN CORPUSCULAR HGB CONC 35 G/DL (32-36); MEAN CORPUSCULAR VOLUME 84 FL (80-99); MEAN PLATELET VOLUME 9.8 FL (7.4-10.4); MONOCYTES # (AUTO) 0.9 X 10^3 (0.0-1.0); MONOCYTES % (AUTO) 13 % (0-12); NEUTROPHILS # (AUTO) 5.1 X 10^3 (1.8-7.8); NEUTROPHILS % (AUTO) 70 % (42-75); PLATELET COUNT 254 10^3/uL (130-400); RED CELL DISTRIBUTION WIDTH 11.8 % (10.0-14.5); WHITE BLOOD COUNT 7.4 10^3/uL (4.3-11.0)
[2018-12-28 06:00] LABS: ALANINE AMINOTRANSFERASE 48 U/L (0-55); ALBUMIN 3.1 GM/DL (3.2-4.5); ALKALINE PHOSPHATASE 69 U/L (40-136); BILIRUBIN,TOTAL 0.3 MG/DL (0.1-1.0); BUN/CREATININE RATIO 9; CARBON DIOXIDE 24 MMOL/L (21-32); CHLORIDE 100 MMOL/L (98-107); CREATININE SERUM 0.86 MG/DL (0.60-1.30); GFR ESTIMATED > 60; GLUCOSE 101 MG/DL (70-105); POTASSIUM 4.2 MMOL/L (3.6-5.0); SODIUM 132 MMOL/L (135-145); TOTAL PROTEIN 5.7 GM/DL (6.4-8.2)
[2018-12-28] MEDS: RT-ALBUTEROL/IPRATROPIUM 3 ML (DUONEB) VIAL INH SCH ×2 (07:49→19:38)
[2018-12-28] MEDS: buPROPion SR 100 MG (WELLBUTRIN SR) TAB PO SCH ×2 (08:34→20:19)
[2018-12-28] MEDS: meTOprolol TARTRATE 50 MG (LOPRESSOR) TAB PO SCH ×2 (08:34→20:19)
[2018-12-28] MEDS: clonazePAM 1 MG (KlonoPIN) TAB PO SCH ×3 (08:34→20:19)
[2018-12-28] MEDS: BENZTROPINE MESYLATE 1 MG (COGENTIN) TAB PO SCH ×2 (08:34→20:19)
[2018-12-28] MEDS: NICOTINE PATCH REMOVAL TP SCH (08:35)
[2018-12-28] MEDS: NICOTINE 21 MG (NICODERM) PATCH TD SCH (08:35)
[2018-12-28] MEDS ORDERED: SENN-141 PO (09:07)
[2018-12-28] MEDS ORDERED: METO50TA15 PO (09:07)
--- NOTE | 2018-12-28 09:10 | Discharge Inst-Complex ---
PDI Med Rec & Follow Up Appt. New Medications: Sennosides (Senna) 8.6 Mg Tablet 8.6 MG PO BID, #60 TAB 6 Refills Metoprolol Tartrate (Metoprolol Tartrate) 50 Mg Tablet 50 MG PO BID, #30 TAB 6 Refills Continued Medications: Benztropine Mesylate (Benztropine Mesylate) 1 Mg Tablet 1 MG PO DAILY, TAB Benztropine Mesylate (Benztropine Mesylate) 1 Mg Tablet 2 MG PO HS, TAB TAKES 2 (1MG) TABLETS Bupropion HCl (Wellbutrin Sr) 200 Mg Tablet.er 200 MG PO DAILY, TAB Bupropion HCl (Wellbutrin Sr) 100 Mg Tablet.er 100 MG PO HS, TAB Clonazepam (Clonazepam) 1 Mg Tablet 1 MG PO BID, TAB Nicotine (Nicotine Patch) 1 Each Patch.td24 21 MG TD DAILY, PATCH Discontinued Medications: Clomipramine HCl (Anafranil) 25 Mg Capsule 25 MG PO HS, CAP Metoprolol Tartrate (Metoprolol Tartrate) 25 Mg Tablet 25 MG PO BID, #60 TAB 6 Refills Risperidone (Risperidone) 3 Mg Tablet PO UD, TAB TAKES 3MG TWICE DAILY ON EVEN DAYS ALTERNATING EVERY OTHER DAY WITH 3MG AM AND 6MG PM ON ODD DAYS. Activity, Diet and PDI Resume Normal Activity: Yes Discharge Diet: Regular Diet Drink 6-8 Glasses of Fluid/Day: Yes Driving Instructions: No Driving/Refer to Return to The Hospital For: ANY CONCERN FOR ACUTE ILLNESS OR LIFETHREATENING ILLNESS Symptoms to Reoprt to : Appetite Changes, Fever Over 101 Degrees F, Pain/Pressure in Chest, Shortness of Breath For Problems or Questions: Contact Your Physician, Go to Emergency Room FAUSTO BEACH MD Dec 28, 2018 09:10
--- NOTE | 2018-12-28 09:14 | Discharge Summary ---
Diagnosis/Chief Complaint Date of Admission Dec 22, 2018 at 17:44 Date of Discharge Discharge Date: Dec 28, 2018 Discharge Time: 1300 Admission Diagnosis Admission Diagnosis LEFT LOWER LOBE PNEUMONIA COLONIC DISTENTION HYPERTENSION PARANOID SCHIZOPHRENIA TOBACCOISM RHABDOMYOLYSIS TARDIVE DYSKINESIA Discharge Diagnosis LEFT LOWER LOBE PNEUMONIA COLONIC DISTENTION HYPERTENSION PARANOID SCHIZOPHRENIA TOBACCOISM RHABDOMYOLYSIS TARDIVE DYSKINESIA Reason Hospital Visit PT ARRIVES VIA EMS FROM HOME HOME HEALTH NURSE CALLED EMS WAS REPORTED TO EMS BY HOME HEALTH NURSE THAT PT HAS HAD LOOSE STOOLS FOR A DAY AND A HALF--UNKNOWN # OF STOOLS ALSO IS REPORTED THAT ABDOMEN IS DISTENDED NO REPORTED VOMITING TEMP 99 PT HAS HAD DECREASED ACTIVITY, FOR UNKNOWN LENGTH OF TIME PT HAS DENIED PAIN IS UNKNOWN WHEN PT LAST ATE/DRANK OR VOIDED PT HAS HISTORY OF PARANOID SCHIZOPHRENIA AND EARLY DEMENTIA PT ADMITTED 12/06-12/10/18 FOR ALTERED MENTAL STATUS. WAS DX WITH RHABDOMYOLYSIS, WITH ELEVATED CRP AND ELEVATED MYOGLOBIN, WITH LOW SODIUM AND LOW POTASSIUM PT LIVES BY HIMSELF, WITH A BROTHER AND SISTER WHO LOOK AFTER HIM, AND ALSO HAS A HOME HEALTH NURSE. PT IS VERY DROWSY AND LETHARGIC ON ARRIVAL, DOES NOT OPEN EYES OR MAKE ANY NOISE WHEN MOVED FROM EMS CART TO ER CART PT DOES YELL AND CURSE ON IV STICK, OTHERWISE PT DOES NOT REALLY TALK BRIEFLY OPENS EYES TO VOICE ON ARRIVAL, THEN QUICKLY CLOSES HIS EYES AGAIN Discharge Summary Discharge Physical Examination Allergies: Coded Allergies: No Known Drug Allergies (Unverified , 12/06/18) Vitals & I&Os Vital Signs Date Time Temp Pulse Resp B/P (MAP) Pulse Ox O2 Delivery O2 Flow Rate FiO2 12/28/18 08:00 98.0 76 24 126/62 (83) 93 Room Air 12/26/18 09:50 21 12/25/18 16:35 10 General Appearance: Alert, Other (ORIENTED TO PERSON, NOT PLACE OR TIME) HEENT: Atraumatic, Mucous Memb Moist/[place] Respiratory: Clear to Auscultation Cardiovascular: Regular Rate Abdominal: Normal Bowel Sounds, Soft Extremities: No Clubbing, No Cyanosis, No Edema Skin: No Breakdown Neuro: Normal Speech Psych/Mental Status: Mood NL, Other (GROGGY BUT ALERT TO VOICE AND ABLE TO ANSWER TO NAME AND ANSWER QUESTIONS) Hospital Course Was the Problem List Reviewed?: Yes LEFT LOWER LOBE PNEUMONIA COLONIC DISTENTION HYPERTENSION PARANOID SCHIZOPHRENIA TOBACCOISM RHABDOMYOLYSIS TARDIVE DYSKINESIA LEFT LOWER LOBE PNEUMONIA - PT ON IV ANTIBIOTICS, MONITOR CHEST XRAYS - CLEARING PER LAST CHEST XRAY. COLONIC DISTENTION - DEFER TO DR. AYOUB - PLAN FOR FLEX SIG TODAY. HYPERTENSION - ANTIHYPERTENSIVES NEEDED TO GAIN CONTROL OF PRESSURE. PARANOID SCHIZOPHRENIA - HOLDING ANTIPSYCHOTIC MEDICATIONS AT THIS TIME DUE TO HIS TARDIVE DYSKINESIA AND RHABDOMYOLYSIS - HE WILL NEED INPATIENT ADMISSION TO A PSYCHIATRIC UNIT FOR MEDICATION ADJUSTMENTS. I HAVE BEEN INFORMED THAT HE WILL NOT BE ACCEPTED TO [facility] BECAUSE OF A CONVERSATION WITH HIS SIBLING INDICATING THAT THEY WANTED TO MAKE SURE THAT DR. HANNA WAS KEPT IN THE LOOP AND MEDICATION CHANGES WERE APPROVED BY DR. HANNA. THE SIBLINGS WERE UPSET WHEN I TOLD THEM THIS - THEY STATED THAT THEY DID NOT WANT TO KEEP ALEYDA FROM GETTING TO A FACILITY THAT HE NEEDED TO BE ADMITTED TO AND THEY WERE NOT TRYING TO BE DEMANDING, JUST ADVOCATING THAT DR. HANNA BE KEPT IN THE LOOP ON HIS CARE. TOBACCOISM Pending Labs Laboratory Tests 12/28/18 05:00: White Blood Count 7.4, Red Blood Count 4.67, Hemoglobin 13.6, Hematocrit 39, Mean Corpuscular Volume 84, Mean Corpuscular Hemoglobin 29, Mean Corpuscular Hemoglobin Concent 35, Red Cell Distribution Width 11.8, Platelet Count 254, Mean Platelet Volume 9.8, Neutrophils (%) (Auto) 70, Lymphocytes (%) (Auto) 15, Monocytes (%) (Auto) 13, Eosinophils (%) (Auto) 2, Basophils (%) (Auto) 0, Neutrophils # (Auto) 5.1, Lymphocytes # (Auto) 1.1, Monocytes # (Auto) 0.9, Eosinophils # (Auto) 0.2, Basophils # (Auto) 0.0, Sodium Level 132, Potassium Level 4.2, Chloride Level 100, Carbon Dioxide Level 24, Anion Gap 8, Blood Urea Nitrogen 8, Creatinine 0.86, Estimat Glomerular Filtration Rate > 60, BUN/Creatinine Ratio 9, Glucose Level 101, Calcium Level 9.0, Corrected Calcium 9.7, Total Bilirubin 0.3, Aspartate Amino Transf (AST/SGOT) 46, Alanine Aminotransferase (ALT/SGPT) 48, Alkaline Phosphatase 69, Total Creatine Kinase 70, Myoglobin 58.6, Total Protein 5.7, Albumin 3.1 Discharge Condition at discharge IMPROVED Instructions to patient/family Please see electronic discharge instructions given to patient. Discharge Medications Reviewed and agree with Discharge Medication list on patient's Discharge Instruction sheet Clinical Quality Measures DVT/VTE Risk/Contraindication: Risk Factor Score Per Nursin RFS Level Per Nursing on Admit: 4+=Very High FAUSTO BEACH MD Dec 28, 2018 09:14
--- NOTE | 2018-12-28 10:53 | NUR ---
For a brief moment pt was alert enough to take communion with his sister.
--- NOTE | 2018-12-28 14:06 | Progress Note ---
Subjective Date Seen by a Provider: Dec 28, 2018 Time Seen by a Provider: 12:00 Subjective/Events-last exam Patient is having flatus and bowel movements family states. Patient abdomen is soft and not distended at this time. Patient is tolerating soft diet. Family present at bedside and have no new complaints or issues. Patient still nonverbal. Objective Exam Vital Signs Date Time Temp Pulse Resp B/P (MAP) Pulse Ox O2 Delivery O2 Flow Rate FiO2 12/28/18 12:00 98.0 52 24 147/68 (94) 94 Room Air 12/28/18 08:00 Room Air 12/28/18 08:00 98.0 76 24 126/62 (83) 93 Room Air 12/28/18 07:49 95 Room Air 12/28/18 05:19 97.8 54 18 152/74 (100) 92 Room Air 12/28/18 04:00 97.9 69 18 155/80 (105) 94 Room Air 12/28/18 00:57 97.9 69 18 155/80 (105) 94 Room Air 12/27/18 20:00 Room Air 12/27/18 20:00 97.9 69 18 146/74 (98) 93 Room Air 12/27/18 19:15 93 Room Air 12/27/18 16:00 98.4 59 22 167/83 (111) 97 Room Air I & O 12/28/18 07:00 Intake Total 525 ml Output Total 3950 ml Balance -3425 ml Capillary Refill : Less Than 3 Seconds General Appearance: No Apparent Distress, WD/WN, Chronically ill Neck: Normal Inspection, Non Tender Respiratory: Chest Non Tender, No Accessory Muscle Use, No Respiratory Distress Cardiovascular: Regular Rate, Rhythm, No Murmur Gastrointestinal: non tender, soft, no organomegaly, no pulsatile mass; No distended Extremity: Non Tender Neurologic/Psychiatric: Alert (moves extremities nonverbal), Other Skin: Normal Color, Warm/Dry Lymphatic: No Adenopathy Results Lab Laboratory Tests 12/28/18 05:00: White Blood Count 7.4, Red Blood Count 4.67, Hemoglobin 13.6, Hematocrit 39L, Mean Corpuscular Volume 84, Mean Corpuscular Hemoglobin 29, Mean Corpuscular Hemoglobin Concent 35, Red Cell Distribution Width 11.8, Platelet Count 254, Mean Platelet Volume 9.8, Neutrophils (%) (Auto) 70, Lymphocytes (%) (Auto) 15, Monocytes (%) (Auto) 13H, Eosinophils (%) (Auto) 2, Basophils (%) (Auto) 0, Neutrophils # (Auto) 5.1, Lymphocytes # (Auto) 1.1, Monocytes # (Auto) 0.9, Eosinophils # (Auto) 0.2, Basophils # (Auto) 0.0, Sodium Level 132L, Potassium Level 4.2, Chloride Level 100, Carbon Dioxide Level 24, Anion Gap 8, Blood Urea Nitrogen 8, Creatinine 0.86, Estimat Glomerular Filtration Rate > 60, BUN/Creatinine Ratio 9, Glucose Level 101, Calcium Level 9.0, Corrected Calcium 9.7, Total Bilirubin 0.3, Aspartate Amino Transf (AST/SGOT) 46H, Alanine Aminotransferase (ALT/SGPT) 48, Alkaline Phosphatase 69, Total Creatine Kinase 70, Myoglobin 58.6, Total Protein 5.7L, Albumin 3.1L Microbiology 12/22/18 Blood Culture - Preliminary, Resulted No growth 12/24/18 C. difficile GDH Antigen & Toxins - Final, Complete 12/24/18 MRSA Screen - Final, Complete Assessment/Plan Assessment/Plan Assessment/Plan LLL Pneumonia Ogilvies syndrome - resolved HTN Hx of Schizophrenia Tardive Dykinesia Patient bowel issues resolved. He has any return should be reevaluated at that time. We'll sign off. Okay for patient to be discharged from surgical standpoint. Clinical Quality Measures DVT/VTE Risk/Contraindication: Risk Factor Score Per Nursin RFS Level Per Nursing on Admit: 4+=Very High MANAN AYOUB DO Dec 28, 2018 14:06
--- NOTE | 2018-12-28 18:14 | NUR ---
CM/SS, resumed discharge planning throughout the day. PLAN: Patient has been accepted to [facility] tomorrow for Medicare chcf and therapies. CARE Assessment completed, processed with [facility]. Faxed CARE to [facility], prepared packet to accompany patient. Staff to fax final orders and make transport arrangements with [facility]. SUMMARY: Attempted referral process this a.m. with [facility], no beds and none anticipated. The ideal for patient would have been admission to unit where his established psychiatrist, Dr. Matt Pedraza, practices. Patient was not yet ambulatory which hinders placement acceptance. He is sluggish and drowsy, but did show some improvement throughout the day. Several intermittent visits with his siblings and a cousin, Lilian Olvera. Considering all options, we all agreed patient needed to get stronger in order to participate and communicate with behavioral health. Amazingly, patient has never been hospitalized for his mental illness. The proposal at this time is that psychotropics need review and adjustment or titration. [place] has informed MLF/Jaelyn of the importance to get an appointment with Dr. Pedraza so that he can weigh in on Rx planning. Family very appreciative and as always very attentive to patient. They do understand patient likely will never live alone again unless he is safely able to do so. The desire is that he would be able to return to live with them, but he will be in very close proximity to them if he can settle at the care home permanently.
[2018-12-28] MEDS: CEFEPIME 2,000 MG/SWFI 20 ML IV PUSH IV SCH ×2 (18:46)
[2018-12-28] MEDS: ENOXAPARIN 40 MG/0.4 ML (LOVENOX) SYR SC SCH (20:19)
[2018-12-29] VITALS: BP 118/72
[2018-12-29 04:00] VITALS: BP 153/70
[2018-12-29 08:00] VITALS: BP 154/76
[2018-12-29] MEDS: RT-ALBUTEROL/IPRATROPIUM 3 ML (DUONEB) VIAL INH SCH (08:02)
[2018-12-29] MEDS: meTOprolol TARTRATE 50 MG (LOPRESSOR) TAB PO SCH (09:01)
[2018-12-29] MEDS: BENZTROPINE MESYLATE 1 MG (COGENTIN) TAB PO SCH (09:01)
[2018-12-29] MEDS: clonazePAM 1 MG (KlonoPIN) TAB PO SCH (09:01)
[2018-12-29] MEDS: NICOTINE PATCH REMOVAL TP SCH (09:02)
[2018-12-29] MEDS: NICOTINE 21 MG (NICODERM) PATCH TD SCH (09:02)
[2018-12-29] MEDS: buPROPion SR 100 MG (WELLBUTRIN SR) TAB PO SCH (09:02)
--- NOTE | 2018-12-29 09:06 | Discharge Inst-Skilled Nursing ---
Discharge Inst-Skilled NF Patient Instructions Patient Problems: paranoid schizophrenia hypertension generalized debility recurrent rhabdomyolysis due to medication Consult/Follow Up/Orders Skilled NF Admit to: [facility] Certification (SNF) I certify that SNF services are required to be given on an inpatient basis because of the above named patient's need for group home care on a continui ng basis for the conditions(s) for which he/she was receiving inpatient hospital services prior to his/her transfer to the SNF. Group Home Facility Order: Nursing Services, Inspector Assembly-Evaluate & Treat, Physical Therapy-Evaluate & Treat, Speech Language-Evaluate & Treat Oxygen Delivery Method: Room Air Discharge Diet: Regular Diet Daily Activity as Tolerated: Yes New & Resume Previous Orders Fausto Vitale Dec 29, 2018 09:05 FAUSTO VITALE MD Dec 29, 2018 09:06
[2018-12-29] MEDS ORDERED: CLON1TAB13 PO (09:07)
--- NOTE | 2018-12-29 09:19 | Physical Therapy Evaluation ---
PT Evaluation-General Medical Diagnosis Admission Date Dec 22, 2018 at 17:44 Medical Diagnosis: pneumonia/hypoxia/AMS Onset Date: Dec 22, 2018 Therapy Diagnosis Therapy Diagnosis: debility/weakness Height/Weight Height (Feet): 5 Height (Inches): 0.00 Weight (Pounds): 142 Weight (Ounces): 9.0 Precautions Precautions/Isolations: Fall Prevention Weight Bear Status Right Lower Extremity: Right Weight Bearing/Tolerated Left Lower Extremity: Left Weight Bearing/Tolerated Referral Physician: Iam Reason for Referral: Evaluation/Treatment Medical History Pertinent Medical History: Dementia, HTN, Smoking Additional Medical History paranoid schizophrenia Current History EMS secondary to abdominal issues Reviewed History: Yes Social History Home: Apartment Prior/Core FIM Prior Level of Function Therapy Code Descriptions/Definitions Functional [place] Measure: 0=Not Assessed/NA 4=Minimal Assistance 1=Total Assistance 5=Supervision or Setup 2=Maximal Assistance 6=Modified [place] 3=Moderate Assistance 7=Complete [place] Therapy Quality Codes: 6 Independent with activity with or without an assistive device 5 Patient requires set up or clean up by helper. Patient completes activity by themselves 4 Supervision or touching assist (CGA). [place] provide cues , steadying assist 3 The helper provides less than half the effort to complete the activity 2 The helper provides more than half the effort to complete the activity 1 Dependent. The helper does all the effort to complete an activity 7 Patient refused to complete or attempt activity 9 The patient did not perform the activity before the current illness or injury 88 Not attempted due to Medical conditions or safety concerns Functional Abilities and Goals: Independent: Patient completed the activities by him/herself, with or without an assistive device, with no assistance from a helper. Needed Some Help: Patient needed partial assistance from another person to complete activities. Dependent: A helper completed the activities for the patient. Unknown: Not Applicable: Bed Mobility: 4 Transfers (B,C,W/C) (FIM): 4 Gait: 1 Indoor Mobility (Ambulation): Needed Some Help Stairs: Not [place] Prior Devices Use: Manual wheelchair, Walker PT Evaluation-Current Subjective Patient is very lethargic, however, agrees to up in chair. Family present Pain Numeric Pain Scale: 0-No Pain Location: No Pain Reported Objective Patient Orientation: Confused Problem Solving: Poor Attachments: IV ROM/Strength ROM Lower Extremities bilateral LE WFL Strength Lower Extremities 3-/5 grossly bilaterally Integumentary/Posture Bowel Incontinence: Yes Bladder Incontinence: Yes Posture cervical flexion posture Neuromuscular (Tone, Coordination, Reflexes) diminished with all due to inactivity and illness Sensory Vision: Functional Hearing: Impaired Sensation Right Lower Extremit: Impaired Sensation Left Lower Extremity: Impaired Transfers Therapy Code Descriptions/Definitions Functional [place] Measure: 0=Not Assessed/NA 4=Minimal Assistance 1=Total Assistance 5=Supervision or Setup 2=Maximal Assistance 6=Modified [place] 3=Moderate Assistance 7=Complete [place] Transfers (B, C, W/C) (FIM): 2 Scootin Rollin Supine to/from Sit: 2 Sit to/from Stand: 2 bed t/f WC(FIM only if WC use): 2 max assist with all SPT bed to recliner Balance Sitting Static: Fair Sitting Dynamic: Fair Standing Static: Poor Standing Dynamic: Poor Assessment/Needs 68 y.o. male, is currently unsafe to assess gait, will transfer to [place] on this date for continued care. Rehab Potential: Guarded PT Plan Treatment/Plan Treatment Plan: Discontinue PT, goals met Treatment Plan: Other Treatment Duration: Dec 29, 2018 Frequency: 1 time per week Estimated Hrs Per Day: .25 hour per day Patient and/or Family Agrees t: Yes Discharge Recommendations Therapy D/C Recommendations: Alf Placement, Senior Living (TCU/NH) Time/GCodes Time In: 800 Time Out: 814 Total Billed Treatment Time: 14 [facility] BRYANT SCHWARZ PT Dec 29, 2018 09:19
--- NOTE | 2018-12-29 10:17 | NUR ---
Patient is discharging to [facility] for custodial home placement today. [facility] has called et notified us that they will pick the patient up between 11-12p.m. today. I notified family at bedside et primary care nurse Laura with anticipated picked edge sewing machine operator time. Finalized discharge orders faxed to [facility] et placed in red discharge packet.
== END 2018-12-29 11:25 | DRG 391 ==
LOC: EDUNIT# 15:26 → ER 15:27 → 4TH 17:44 → EDPENDDISTM 12-29 10:00 → EDPENDDISDT 12-29 10:00
PROVIDERS: ADMIT Family Medicine; ATTEND Family Medicine
PROC: 0DJD8ZZ Inspection of Lower Intestinal Tract, Via Natural or Artificial Opening Endoscopic (ICD-10-PCS; principal; 2018-12-25 16:00)
DX: K59.8 Other specified functional intestinal disorders (principal); J18.1 Lobar pneumonia, unspecified organism; F20.0 Paranoid schizophrenia; M62.82 Rhabdomyolysis; G24.01 Drug induced subacute dyskinesia; T43.505A Adverse effect of unspecified antipsychotics and neuroleptics, initial encounter; R09.02 Hypoxemia; N32.89 Other specified disorders of bladder; R33.8 Other retention of urine; I10 Essential (primary) hypertension; E86.0 Dehydration; K64.9 Unspecified hemorrhoids; E87.6 Hypokalemia; F03.90 Unspecified dementia, unspecified severity, without behavioral disturbance, psychotic disturbance, mood disturbance, and anxiety; R26.2 Difficulty in walking, not elsewhere classified; F17.210 Nicotine dependence, cigarettes, uncomplicated; R79.82 Elevated C-reactive protein (CRP); R53.81 Other malaise; R79.89 Other specified abnormal findings of blood chemistry
CPT/HCPCS: 36415; 71045; 74018; 74176; 80053; 80306; 80320; 81000; 82140; 82150; 82550; 82553; 83605; 83690; 83735; 83874; 84443; 85007; 85025; 85027; 85610; 85730; 86141; 87040; 87081; 87324; 87449; 93005; 93041; 94640; 94760; 96361; 96365

== ENCOUNTER 2019-01-07 00:24 | Emergency (ER) | payer MEDICARE, OTHER ==
[~2019-01-07] VITALS: Ht 152.4 cm; Wt 64.7 kg
[~2019-01-07 00:24] MED LIST changes: +BUPR100T7 PO; +METO50TA15 PO; +NICO-588 TD; +SENN-141 PO
--- NOTE | 2019-01-07 00:25 | NUR ---
brought in by [facility] from detention for complaint of increased anxiety. pt denies complaints at this time. reports feeling tired.
--- NOTE | 2019-01-07 00:33 | ED Psychosocial ---
General Chief Complaint: Psych/Social Disorder Stated Complaint: ANXIETY Source: patient, EMS, care home records Exam Limitations: no limitations History of Present Illness Date Seen by Provider: Jan 07, 2019 Time Seen by Provider: 00:26 Initial Comments Patient presents to ER from care home with his EMS and medical records and report by his primary care doctor, Dr. Vitale that he has been off his primary psych medications for his schizophrenia for the past 2 weeks. He's been stable on for years but then had an episode of rhabdomyolysis and every time they are restarted he apparently goes back and rhabdo. Patient was not having any pain nausea shortness of breath he just says that he has been a little irritable today and wants to sleep. EMS said he's not been a problem or aggressive or belligerent. Dr. Vitale but the patient medically cleared and sent for psychiatry to help manage his psychiatric medicines on an inpatient basis. Patient is closely accompanied by his brother and sisters abdomen with him all day and has been agitated. They noted that his belly is more distended and in the past she had an ileus that because distention. They do not know the last time he had a bowel movement. The patient cannot answer the question and care home staff also did not volunteer this information. Allergies and Home Medications Allergies Coded Allergies: No Known Drug Allergies (Unverified , 12/06/18) Home Medications Benztropine Mesylate 1 Mg Tablet, 1 MG PO DAILY, (Reported) Benztropine Mesylate 1 Mg Tablet, 2 MG PO HS, (Reported) TAKES 2 (1MG) TABLETS Bupropion HCl 200 Mg Tablet.er, 200 MG PO DAILY, (Reported) Bupropion HCl 100 Mg Tablet.er, 100 MG PO HS, (Reported) Clonazepam 1 Mg Tablet, 1 MG PO BID Prescribed by: FAUSTO VITALE on 12/29/18906 Metoprolol Tartrate 50 Mg Tablet, 50 MG PO BID Prescribed by: FAUSTO VITALE on 12/28/18906 Nicotine 1 Each Patch.td24, 21 MG TD DAILY, (Reported) Sennosides 8.6 Mg Tablet, 8.6 MG PO BID Prescribed by: FAUSTO VITALE on 12/28/18 09 Patient Home Medication List Home Medication List Reviewed: Yes Review of Systems Constitutional: No chills, No fever EENTM: No hearing loss, No ear pain Respiratory: No cough, No short of breath Cardiovascular: No chest pain, No edema Gastrointestinal: No abdominal pain, No constipation, No nausea, No vomiting Past Dlieepw-Lmxtzd-Rsptby Hx Patient Social History Alcohol Use: Denies Use Recreational Drug Use: No Type Used: Cigarettes 2nd Hand Smoke Exposure: Yes Recent Foreign Travel: No Contact w/Someone Who Travel: No Recent Hopitalizations: Yes Immunizations Up To Date Date of Pneumonia Vaccine: Dec 27, 2014 Seasonal Allergies Seasonal Allergies: No Past Medical History Surgeries: Yes (esophageal surgery for acid reflux) Tonsillectomy Respiratory: No Currently Using CPAP: No Cardiac: No Neurological: Yes Dementia Reproductive Disorders: No Sexually Transmitted Disease: No HIV/AIDS: No Genitourinary: No Gastrointestinal: No Musculoskeletal: No Endocrine: No HEENT: No Loss of Vision: Denies Hearing Impairment: Denies Cancer: No Psychosocial: Yes (PARANOID SCHIZOPHRENIA, EARLLY DEMENTIA) Schizophrenia Integumentary: No Blood Disorders: No Family Medical History Heart Disease, Cancer, Diabetes, Hypertension Physical Exam Vital Signs - First Documented 01/07/19 00:25 Temp 98.3 Pulse 63 Resp 18 B/P (MAP) 130/75 (93) Pulse Ox 98 O2 Delivery Room Air Capillary Refill : Height, Weight, BMI Height: 5'0.00" Weight: 142lbs. 9.0oz. [id number]; 31.2 BMI Method:Stated General Appearance: WD/WN, no apparent distress, other (somnolent) HEENT: PERRL/EOMI, normal ENT inspection, TMs normal, pharynx normal Neck: full range of motion, normal inspection Respiratory: lungs clear, normal breath sounds, no respiratory distress, no accessory muscle use Cardiovascular: normal peripheral pulses, regular rate, rhythm Peripheral Pulses: 2+ Radial Pulses (R), 2+ Radial Pulses (L) Gastrointestinal: non tender, soft Neurologic/Psychiatric: [facility] [employer] II-XII nml as tested, no motor/sensory deficits, alert, normal mood/affect, oriented x 3, other Appearance/Memory: appropriate appearance, no memory impairment Behavior/Eye Contact: cooperative (irritable with questioning), normal speech, avoids eye contact Thoughts/Hallucinations: No delusions; visual hallucinations (reaching for things that aren't there.) Skin: normal color, warm/dry Progress/Results/Core Measures Results/Orders Lab Results Laboratory Tests Test 01/07/19 00:30 Range/Units White Blood Count 8.7 4.3-11.0 10^3/uL Red Blood Count 4.85 4.35-5.85 10^6/uL Hemoglobin 14.3 13.3-17.7 G/DL Hematocrit 41 40-54 % Mean Corpuscular Volume 85 80-99 FL Mean Corpuscular Hemoglobin 30 25-34 PG Mean Corpuscular Hemoglobin Concent 35 32-36 G/DL Red Cell Distribution Width 12.4 10.0-14.5 % Platelet Count 278 130-400 10^3/uL Mean Platelet Volume 8.9 7.4-10.4 FL Neutrophils (%) (Auto) 71 42-75 % Lymphocytes (%) (Auto) 17 12-44 % Monocytes (%) (Auto) 9 0-12 % Eosinophils (%) (Auto) 3 0-10 % Basophils (%) (Auto) 0 0-10 % Neutrophils # (Auto) 6.2 1.8-7.8 X 10^3 Lymphocytes # (Auto) 1.5 1.0-4.0 X 10^3 Monocytes # (Auto) 0.8 0.0-1.0 X 10^3 Eosinophils # (Auto) 0.3 0.0-0.3 10^3/uL Basophils # (Auto) 0.0 0.0-0.1 10^3/uL Sodium Level 136 135-145 MMOL/L Potassium Level 3.5 L 3.6-5.0 MMOL/L Chloride Level 100 98-107 MMOL/L Carbon Dioxide Level 24 21-32 MMOL/L Anion Gap 12 5-14 MMOL/L Blood Urea Nitrogen 12 7-18 MG/DL Creatinine 1.25 0.60-1.30 MG/DL Estimat Glomerular Filtration Rate 57 BUN/Creatinine Ratio 10 Glucose Level 90 70-105 MG/DL Calcium Level 9.4 8.5-10.1 MG/DL Corrected Calcium 9.7 8.5-10.1 MG/DL Total Bilirubin 0.5 0.1-1.0 MG/DL Aspartate Amino Transf (AST/SGOT) 25 5-34 U/L Alanine Aminotransferase (ALT/SGPT) 21 0-55 U/L Alkaline Phosphatase 90 40-136 U/L Total Creatine Kinase 217 H 30-200 U/L Total Protein 6.5 6.4-8.2 GM/DL Albumin 3.6 3.2-4.5 GM/DL Salicylates Level < 5.0 L 5.0-20.0 MG/DL Acetaminophen Level < 10 L 10-30 UG/ML Serum Alcohol < 10 <10 MG/DL My Orders Orders - SHEY LAWRENCE Ua Culture If Indicated (01/07/19 00:30) Cbc With Automated Diff (01/07/19:30) Comprehensive Metabolic Panel (01/07/19:30) Alcohol (01/07/19:30) Drug Screen Stat (Urine) (01/07/19:30) Acetaminophen (01/07/19:30) Salicylate (01/07/19:30) Ekg Tracing (01/07/19:30) Ed Iv/Invasive Line Start (01/07/19 00:30) Monitor-Rhythm Ecg Trace Only (01/07/19:30) Bh Status Checks/Observation Q15M (01/07/19 00:30) Ed Iv/Invasive Line Start (01/07/19 00:30) Creatine Kinase (01/07/19 00:30) Nicotine Patch (Nicoderm Patch) (01/07/19 01:45) Lorazepam Injection (Ativan Injection) (01/07/19 01:45) Ed Iv/Invasive Line Start (01/07/19 01:42) Lactated Ringers (Lr 1000 Ml Iv Solution (01/07/19 01:42) Ct Abdomen/Pelvis Wo (01/07/19 01:52) Haloperidol Injection (Haldol Injectio (01/07/19 03:45) Diphenhydramine Injection (Benadryl Inje (01/07/19 03:45) Medications Given in ED Current Medications Medications Dose Ordered Sig/Lisette Route Start Time Stop Time Status Last Admin Dose Admin Diphenhydramine HCl 25 mg ONCE ONCE IVP 01/07/19 03:45 01/07/19 03:47 DC 01/07/19 03:47 25 MG Haloperidol Lactate 5 mg ONCE ONCE IV 01/07/19 03:45 01/07/19 03:47 DC 01/07/19 03:47 5 MG Lactated Ringer's 1,000 ml @ 0 mls/hr Q0M ONCE IV 01/07/19 01:42 01/07/19 01:45 DC 01/07/19 02:06 0 MLS/HR Lorazepam 0.5 mg ONCE ONCE IVP 01/07/19 01:45 01/07/19 01:46 DC 01/07/19 02:06 0.5 MG Nicotine 21 mg ONCE ONCE TD 01/07/19 01:45 01/07/19 01:46 DC 01/07/19 02:14 21 MG Vital Signs/I&O 01/07/19 00:25 Temp 98.3 Pulse 63 Resp 18 B/P (MAP) 130/75 (93) Pulse Ox 98 O2 Delivery Room Air Progress Progress Note #1: Time: 01:06 Progress Note EKG, labs. We have offered something for anxiety however the patient says he is not anxious he just wants to sleep and does not appear to need anything right now. After a medical clearance workup including CK we will discuss inpatient placement for close follow-up with psychiatry. The patient is okay with this plan. Notably the patient was calm at rest, answering questions appropriately and making his wishes known. When the patient's brother and sister arrived they cut him off before he has an opportunity to answer questions and he has been visibly agitated. Progress Note #2: Time: 02:59 Progress Note [facility] [place] has no beds. [facility] has no beds. They recommended they might have discharges in the morning and we'll put him on their list. Initial ECG Impression Date: Jan 07, 2019 Initial ECG Impression Time: 00:41 Initial ECG Rate: 68 Initial ECG Rhythm: Normal Sinus Initial ECG Intervals: QT (477) Initial ECG Impression: Normal, Nonspecific Changes Initial ECG Comparisson: Unchanged Comment Left anterior fascicular block which is stable. No clinically significant ST elevation or depression. Diagnostic Imaging Diagonstic Imaging: CT (noncontrast) Plain Films/CT/US/NM/MRI: abdomen, pelvis Comments Movement artifact but no acute process within the abdomen or pelvis. Resolving airspace opacities of the left lung base. Reviewed: Reviewed [place] Hawk Study, Reviewed by Me Departure Impression Primary Impression: Psychosis Qualified Codes: F20.0 - Paranoid schizophrenia Additional Impressions: Schizophrenia Qualified Codes: F20.0 - Paranoid schizophrenia History of rhabdomyolysis Disposition: HOME, SELF-CARE Condition: Stable Departure-Patient Inst. Decision time for Depature: 04:13 Referrals: FAUSTO VITALE MD (PCP/Family) Primary Care Physician Patient Instructions: Schizophrenia Add. Discharge Instructions: Please collect a urinalysis with culture if indicated. Called Jaswinder rabago and Alanna rabago in the morning. Seek inpatient placement related to the patient's inability to tolerate his chronic psych meds secondary to rhabdomyolysis. If the patient has psychotic her agitated behavior try redirection and assess and meet his needs. If unsuccessful and call Dr. Vitale for orders. All discharge instructions reviewed with patient and/or family. Voiced understanding. SHEY LAWRENCE Jan 07, 2019 00:33
[2019-01-07 00:38] LABS: BASOPHILS % (AUTO) 0 % (0-10); EOSINOPHILS # (AUTO) 0.3 10^3/uL (0.0-0.3); EOSINOPHILS % (AUTO) 3 % (0-10); HEMATOCRIT 41 % (40-54); HEMOGLOBIN 14.3 G/DL (13.3-17.7); LYMPHOCYTES # (AUTO) 1.5 X 10^3 (1.0-4.0); LYMPHOCYTES % (AUTO) 17 % (12-44); MEAN CORPUSCULAR HEMOGLOBIN 30 PG (25-34); MEAN CORPUSCULAR HGB CONC 35 G/DL (32-36); MEAN CORPUSCULAR VOLUME 85 FL (80-99); MEAN PLATELET VOLUME 8.9 FL (7.4-10.4); MONOCYTES # (AUTO) 0.8 X 10^3 (0.0-1.0); MONOCYTES % (AUTO) 9 % (0-12); NEUTROPHILS # (AUTO) 6.2 X 10^3 (1.8-7.8); NEUTROPHILS % (AUTO) 71 % (42-75); PLATELET COUNT 278 10^3/uL (130-400); RED CELL DISTRIBUTION WIDTH 12.4 % (10.0-14.5); WHITE BLOOD COUNT 8.7 10^3/uL (4.3-11.0)
--- NOTE | 2019-01-07 00:40 | NUR ---
family at bedside.
[2019-01-07 00:59] LABS: ACETAMINOPHEN < 10 UG/ML (10-30); ALANINE AMINOTRANSFERASE 21 U/L (0-55); ALBUMIN 3.6 GM/DL (3.2-4.5); ALKALINE PHOSPHATASE 90 U/L (40-136); BILIRUBIN,TOTAL 0.5 MG/DL (0.1-1.0); BUN/CREATININE RATIO 10; CALCIUM 9.4 MG/DL (8.5-10.1); CARBON DIOXIDE 24 MMOL/L (21-32); CHLORIDE 100 MMOL/L (98-107); CREATINE KINASE 217 U/L (30-200); CREATININE SERUM 1.25 MG/DL (0.60-1.30); GFR ESTIMATED 57; GLUCOSE 90 MG/DL (70-105); POTASSIUM 3.5 MMOL/L (3.6-5.0); SALICYLATE < 5.0 MG/DL (5.0-20.0); SODIUM 136 MMOL/L (135-145); TOTAL PROTEIN 6.5 GM/DL (6.4-8.2)
[2019-01-07 01:15] VITALS: BP 139/79
[2019-01-07] MEDS ORDERED: LACTATED RINGERS 1,000 ML IV ONE (01:42)
[2019-01-07] MEDS ORDERED: LORazepam INJ 2 MG/ML (ATIVAN) VIAL IVP ONE (01:45)
[2019-01-07] MEDS ORDERED: NICOTINE 21 MG (NICODERM) PATCH TD ONE (01:45)
[2019-01-07 02:30] VITALS: BP 123/73
[2019-01-07] MEDS ORDERED: diphenhydrAMINE 50 MG/ML INJ (BENADRYL) IVP ONE (03:45)
[2019-01-07] MEDS ORDERED: HALOPERIDOL 5 MG/ML (HALDOL) AMP IV ONE (03:45)
--- NOTE | 2019-01-07 04:05 | NUR ---
rubens from [facility] called for ride for patient.
[2019-01-07 04:45] VITALS: BP 143/76
--- NOTE | 2019-01-07 06:19 | Diagnostic Imaging Report ---
PROCEDURE: CT abdomen and pelvis without contrast. TECHNIQUE: Multiple contiguous axial images were obtained through the abdomen and pelvis without the use of intravenous contrast. Auto Exposure Controls were utilized during the CT exam to meet ALARA standards for radiation dose reduction. INDICATION: Abdominal pain. FINDINGS: The recent CT abdomen/pelvis exam of 12/22/2018 noted marked distention of the colon by gas. The possibility of a mass involving the distal colon was raised. On this study, there is motion artifact and this does limit the sensitivity of this exam. There is much less distention of the colon by gas although there is still considerable dilatation of the ascending colon. There is gas in the small bowel tube. This is nonspecific in appearance. These findings may be secondary to an ileus. As on the prior study, there is marked distention of the urinary bladder. There is no pelvic mass or free fluid collection noted. The appendix was not well-visualized but there are no indirect signs of acute appendicitis. 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 The prostate gland is unchanged in size. The liver, spleen, pancreas, adrenals, kidneys, gallbladder and inferior vena cava were visualized are generally unremarkable. Surgical clips are again seen about the gastroesophageal junction. The stomach itself is partially filled with gas and fluid and difficult to assess. The prior exam did note left lower lobe pneumonia/atelectasis. The left lung base does seem much better aerated on this study. The bone windows are unremarkable for fracture or for destructive lesion. IMPRESSION: 1. There is much less distention of the colon by gas than noted on the prior exam. There is some gas in the small bowel. These findings are nonspecific. There is no sign of bowel obstruction. However, if further evaluation for distal colon lesion is desired, then either endoscopy or air-contrast enema would be recommended. 2. There is no acute abnormality of the abdomen or pelvis noted otherwise. 3. The left lung base does seem much better aerated than on the prior exam. There is still a small amount of residual pneumonia/atelectasis present. Dictated by: Dictated on workstation # [id number]
== END 2019-01-07 04:50 | disposition home or self-care (01) ==
LOC: EDUNIT# 00:24 → ER 00:26
DX: F20.0 Paranoid schizophrenia (principal); K21.9 Gastro-esophageal reflux disease without esophagitis; F03.90 Unspecified dementia, unspecified severity, without behavioral disturbance, psychotic disturbance, mood disturbance, and anxiety; Z77.22 Contact with and (suspected) exposure to environmental tobacco smoke (acute) (chronic); Z87.39 Personal history of other diseases of the musculoskeletal system and connective tissue; Z91.14 Patient's other noncompliance with medication regimen; Z90.89 Acquired absence of other organs; Z82.49 Family history of ischemic heart disease and other diseases of the circulatory system
CPT/HCPCS: 36415; 74176; 80053; 80320; 80329; 82550; 85025; 93005; 93041; 96361; 96374; 96375

== ENCOUNTER 2021-08-08 01:42 | Inpatient (IN) | payer MEDICARE, OTHER ==
[2021-08-08] VITALS (14 sets, daily range): BP systolic 100–166; BP diastolic 51–112
[~2021-08-08] VITALS: Ht 172.2 cm; Wt 67.4 kg
[~2021-08-08 01:42] MED LIST changes: -NICO-588 TD; +NICO-685 TD; -RISP3TAB3 PO; +RISP3TAB62 PO; -SENN-141 PO; +SENN-234 PO
--- NOTE | 2021-08-08 01:57 | ED Chest Pain ---
General Chief Complaint: Chest Pain Stated Complaint: CP/RESTLESS LEG SYNDROME Nursing Triage Note: TO ED VIA [facility] FROM [facility] TO ROOM 7. PER NX HOME PT HAD CP THAT STARTED AT 1800 THIS EVENING. NO CURRENT CP AT THIS TIME PER PT. Source: patient Exam Limitations: no limitations History of Present Illness Date Seen by Provider: Aug 08, 2021 Time Seen by Provider: 01:44 Initial Comments Patient ER by EMS from [facility] in [place], [place] with chief complaint that since 1800 yesterday evening he began to experience left- sided chest pain nonradiating. Patient has a history of schizophrenia and states that on the ride over here his pain went away and is now rating it as a nothing. It was quite severe earlier. EMS says he was dancing all over the cot but did not give him any aspirin or nitro. Patient says he is pain-free at this time. He is not having any nausea fevers chills cough shortness of air diarrhea or constipation. No known history of heart disease. Allergies and Home Medications Allergies Coded Allergies: No Known Drug Allergies (Unverified , 12/06/18) Patient Home Medication List Home Medication List Reviewed: Yes Acetaminophen (Tylenol Extra Strength) 500 Mg Tablet, 1,000 MG PO Q4H PRN for PAIN-MILD (1-4) OR TEMPATURE, (Reported) Entered as Reported by: JONATHAN CHADWICK on 08/08/211216 Last Action: Continued Pwhvl-K-Ffqapqylhbutb (Beano) 400 Unit Tablet, 400 UNIT PO TIDWM, (Reported) Entered as Reported by: JONATHAN CHADWICK on 08/08/211216 Last Action: Converted Aspirin (Aspirin EC) 81 Mg Tablet.dr, 81 MG PO DAILY Prescribed by: FAUSTO VITALE on 08/09/2122 Benztropine Mesylate (Benztropine Mesylate) 1 Mg Tablet, 1 MG PO TID, (Reported) Entered as Reported by: VALENTIN KIMBALL on 12/07/18 1105 Last Action: Continued Benztropine Mesylate (Benztropine Mesylate) 0.5 Mg Tablet, 0.5 MG PO 1600, (Reported) Entered as Reported by: JONATHAN CHADWICK on 08/08/211216 Last Action: Converted Bethanechol Chloride (Bethanechol Chloride) 25 Mg Tablet, 25 MG PO QIDACHS, (Reported) Entered as Reported by: JONATHAN CHADWICK on 08/08/211216 Last Action: Continued Clopidogrel Bisulfate (Clopidogrel) 75 Mg Tablet, 75 MG PO DAILY Prescribed by: FAUSTO VITALE on 08/09/21921 Cyanocobalamin (Cyanocobalamin Injection) 1,000 Mcg/Ml Inj, 1,000 MCG IM MONTHLY, (Reported) Entered as Reported by: JONATHAN CHADWICK on 08/08/211216 Last Action: Reviewed Fluoxetine HCl (Fluoxetine HCl) 20 Mg Capsule, 60 MG PO DAILY, (Reported) Entered as Reported by: JONATHAN CHADWICK on 08/08/211216 Last Action: Continued Lorazepam (Ativan) 0.5 Mg Tablet, 0.5 MG PO 0600,2100, (Reported) Entered as Reported by: JONATHAN CHADWICK on 08/08/211216 Last Action: Continued Lorazepam (Ativan) 1 Mg Tablet, 1 MG PO 1400, (Reported) Entered as Reported by: JONATHAN CHADWICK on 08/08/211234 Last Action: Continued Losartan Potassium (Losartan Potassium) 50 Mg Tablet, 50 MG PO DAILY, (Reported) Entered as Reported by: JONATHAN CHADWICK on 08/08/211216 Last Action: Continued Melatonin (Melatonin) 5 Mg Tablet, 10 MG PO HS, (Reported) Entered as Reported by: JONATHAN CHADWICK on 08/08/211216 Last Action: Converted Melatonin (Melatonin) 3 Mg Tablet, 3 MG PO UD PRN for IF PT AWAKENS BEFORE 0300, (Reported) Entered as Reported by: JONATHAN CHADWICK on 08/08/211234 Last Action: Edited Metoprolol Tartrate (Metoprolol Tartrate) 25 Mg Tablet, 12.5 MG PO BID, (Reported) Entered as Reported by: JONATHAN CHADWICK on 08/08/211216 Last Action: Continued Nicotine (Nicotine Patch) 1 Each Patch.dysq, 14 MG TD DAILY PRN for NICOTINE REPLACEMENT, (Reported) Entered as Reported by: JONATHAN CHADWICK on 08/08/211216 Last Action: Converted Nitroglycerin (Nitroglycerin) 0.4 Mg Tab.subl, 0.4 MG SL Q30M PRN for CHEST PAIN (ANGINA) Prescribed by: FAUSTO VITALE on 08/09/21924 Olanzapine (Olanzapine) 20 Mg Tablet, 20 MG PO HS, (Reported) Entered as Reported by: JONATHAN CHADWICK on 08/08/211216 Last Action: Converted Olanzapine (Olanzapine) 20 Mg Tablet, 5 MG PO 1400, (Reported) Entered as Reported by: JONATHAN CHADWICK on 08/08/211514 Last Action: Converted Phenazopyridine HCl (Pyridium) 100 Mg Tablet, 100 MG PO Q8H PRN for URINE RE TENTION, (Reported) Entered as Reported by: JONATHAN CHADWICK on 08/08/211216 Last Action: Continued Polyethylene Glycol 3350 (Miralax) 17 Gm Powd.pack, 8.5 GM PO DAILY, (Reported) Entered as Reported by: JONATHAN CHADWICK on 08/08/211216 Last Action: Continued Pramipexole Di-HCl (Pramipexole Dihydrochloride) 0.25 Mg Tablet, 0.25 MG PO HS, (Reported) Entered as Reported by: JONATHAN CHADWICK on 08/08/211216 Last Action: Converted Sennosides (Senna) 8.6 Mg Tablet, 8.6 MG PO BID, (Reported) Entered as Reported by: JONATHAN CHADWICK on 08/08/211216 Last Action: Continued Simethicone (Simethicone) 80 Mg Tab.chew, 80 MG PO BID, (Reported) Entered as Reported by: JONATHAN CHADWICK on 08/08/211216 Last Action: Continued Tamsulosin HCl (Flomax) 0.4 Mg Cap, 0.4 MG PO BID, (Reported) Entered as Reported by: JONATHAN CHADWICK on 08/08/211216 Last Action: Continued Discontinued Medications Benztropine Mesylate (Benztropine Mesylate) 1 Mg Tablet, 1 MG PO DAILY, (Reported) Discontinued Reason: No Longer Taking Entered as Reported by: VALENTIN KIMBALL on 12/07/181104 Last Action: Discontinued Bupropion HCl (Wellbutrin Sr) 200 Mg Tablet.er, 200 MG PO DAILY, (Reported) Discontinued Reason: No Longer Taking Entered as Reported by: BECKY LIU on 12/06/181106 Last Action: Discontinued Bupropion HCl (Wellbutrin Sr) 100 Mg Tablet.er, 100 MG PO HS, (Reported) Discontinued Reason: No Longer Taking Entered as Reported by: AFSANEH LAMAR on 12/22/181949 Last Action: Discontinued Clonazepam (Clonazepam) 1 Mg Tablet, 1 MG PO BID Discontinued Reason: No Longer Taking Prescribed by: FAUSTO VITALE on 12/29/18906 Last Action: Discontinued Lorazepam (Ativan) 0.5 Mg Tablet, 1 MG PO 1400, (Reported) Discontinued Reason: No Longer Taking Entered as Reported by: JONATHAN CHADWICK on 08/08/21 1217 Last Action: Discontinued Metoprolol Tartrate (Metoprolol Tartrate) 50 Mg Tablet, 50 MG PO BID Discontinued Reason: No Longer Taking Prescribed by: FAUSTO VITALE on 12/28/18906 Last Action: Discontinued Olanzapine (Olanzapine) 5 Mg Tablet, 5 MG PO 1600, (Reported) Discontinued Reason: No Longer Taking Entered as Reported by: JONATHAN CHADWICK on 08/08/21 1236 Last Action: Discontinued Sennosides (Senna) 8.6 Mg Tablet, 8.6 MG PO BID Discontinued Reason: No Longer Taking Prescribed by: FAUSTO VITALE on 12/28/18906 Last Action: Discontinued Review of Systems Review of Systems Constitutional: No chills, No diaphoresis, No fever EENTM: No Blurred Vision, No Double Vision Respiratory: Denies Cough, Denies Orthopnea, Denies Shortness of Air Cardiovascular: See HPI, Chest Pain; Denies Edema, Denies Lightheadedness, Denies Palpitations Gastrointestinal: Denies Constipated, Denies Diarrhea, Denies Nausea Genitourinary: Denies Burning, Denies Discharge, Denies Drainage Musculoskeletal: No back pain, No gout, No joint pain Skin: No change in color, No lumps Psychiatric/Neurological: Denies Anxiety, Denies Depressed, Denies Headache All Other Systems Reviewed Negative Unless Noted: Yes Past Madwmrv-Epcrtp-Qdkbxa Hx Patient Social History Tobacco Use?: No Use of E-Cig and/or Vaping dev: No Seasonal Allergies Seasonal Allergies: No Past Medical History Surgeries: Yes Tonsillectomy Respiratory: No Currently Using CPAP: No Cardiac: Yes Hypertension Neurological: Yes Dementia Reproductive Disorders: No Sexually Transmitted Disease: No HIV/AIDS: No Genitourinary: No Gastrointestinal: No Musculoskeletal: No Endocrine: No HEENT: No Loss of Vision: Denies Hearing Impairment: Denies Cancer: No Psychosocial: Yes (PARANOID SCHIZOPHRENIA, DEMENTIA) Schizophrenia Integumentary: No Blood Disorders: No Family Medical History Heart Disease, Cancer, Diabetes, Hypertension Physical Exam Vital Signs Vital Signs - First Documented 08/08/21 08/08/21 08/08/21 01:43 01:45 01:50 Temp 36.8 Pulse 87 Resp 20 B/P (MAP) 150/97 (114) Pulse Ox 87 O2 Delivery Nasal Cannula O2 Flow Rate 2.00 Capillary Refill : Less Than 3 Seconds Height, Weight, BMI Height: 5'0.00" Weight: 142lbs. 9.0oz. 64.284136ab; 31.2 BMI Method:Stated General Appearance: No Apparent Distress, WD/WN HEENT: PERRL/EOMI, Pharynx Normal, Moist Mucous Membranes Neck: Full Range of Motion, Normal Inspection Respiratory: Lungs Clear, Normal Breath Sounds, No Accessory Muscle Use, No Respiratory Distress Cardiovascular: Regular Rate, Rhythm, No Edema, Normal Peripheral Pulses Gastrointestinal: Normal Bowel Sounds, Non Tender, Soft Extremity: Normal Capillary Refill, Normal Inspection, No Pedal Edema Neurologic/Psychiatric: Alert, Oriented x3 Skin: Normal Color, Warm/Dry Progress/Results/Core Measures Results/Orders Lab Results Laboratory Tests Test 08/08/21 01:50 08/08/21 02:05 Range/Units White Blood Count 9.6 4.3-11.0 10^3/uL Red Blood Count 4.81 4.30-5.52 10^6/uL Hemoglobin 14.5 13.3-17.7 g/dL Hematocrit 43 40-54 % Mean Corpuscular Volume 90 80-99 fL Mean Corpuscular Hemoglobin 30 25-34 pg Mean Corpuscular Hemoglobin Concent 33 32-36 g/dL Red Cell Distribution Width 12.2 10.0-14.5 % Platelet Count 210 130-400 10^3/uL Mean Platelet Volume 9.2 9.0-12.2 fL Immature Granulocyte % (Auto) 0 % Neutrophils (%) (Auto) 77 H 42-75 % Lymphocytes (%) (Auto) 12 12-44 % Monocytes (%) (Auto) 9 0-12 % Eosinophils (%) (Auto) 2 0-10 % Basophils (%) (Auto) 0 0-10 % Neutrophils # (Auto) 7.4 1.8-7.8 10^3/uL Lymphocytes # (Auto) 1.2 1.0-4.0 10^3/uL Monocytes # (Auto) 0.8 0.0-1.0 10^3/uL Eosinophils # (Auto) 0.1 0.0-0.3 10^3/uL Basophils # (Auto) 0.0 0.0-0.1 10^3/uL Immature Granulocyte # (Auto) 0.0 0.0-0.1 10^3/uL Prothrombin Time 13.3 12.2-14.7 SEC INR Comment 1.0 0.8-1.4 Activated Partial Thromboplast Time 33 24-35 SEC Sodium Level 136 135-145 MMOL/L Potassium Level 3.9 3.6-5.0 MMOL/L Chloride Level 106 98-107 MMOL/L Carbon Dioxide Level 18 L 21-32 MMOL/L Anion Gap 12 5-14 MMOL/L Blood Urea Nitrogen 18 7-18 MG/DL Creatinine 1.15 0.60-1.30 MG/DL Estimat Glomerular Filtration Rate 67 BUN/Creatinine Ratio 16 Glucose Level 119 H 70-105 MG/DL Calcium Level 8.9 8.5-10.1 MG/DL Corrected Calcium 9.0 8.5-10.1 MG/DL Magnesium Level 2.2 1.6-2.4 MG/DL Total Bilirubin 0.4 0.1-1.0 MG/DL Aspartate Amino Transf (AST/SGOT) 19 5-34 U/L Alanine Aminotransferase (ALT/SGPT) 20 0-55 U/L Alkaline Phosphatase 98 40-136 U/L Myoglobin 186.7 H 10.0-92.0 NG/ML Troponin I 0.079 H <0.028 NG/ML B-Type Natriuretic Peptide 172.1 H <100.0 PG/ML Total Protein 6.7 6.4-8.2 GM/DL Albumin 3.9 3.2-4.5 GM/DL Influenza Type A (RT-PCR) Not Detected Not Detecte Influenza Type B (RT-PCR) Not Detected Not Detecte SARS-CoV-2 RNA (RT-PCR) Not Detected Not Detecte My Orders Orders - HOWARD,SHEY J Cbc With Automated Diff (08/08/21 01:49) Magnesium (08/08/21 01:49) Chest 1 View, Ap/Pa Only (08/08/21 01:49) Ekg Tracing (08/08/21 01:49) Comprehensive Metabolic Panel (08/08/21 01:49) Myoglobin Serum (08/08/21 01:49) Protime With Inr (08/08/21 01:49) Partial Thromboplastin Time (08/08/21 01:49) O2 (08/08/21 01:49) Monitor-Rhythm Ecg Trace Only (08/08/21 01:49) Ed Iv/Invasive Line Start (08/08/21 01:49) Bnp Darke (08/08/21 01:49) Troponin I Darke (08/08/21 01:49) Nitroglycerin 0.4 Mg Btl 25's (Nitrostat (08/08/21 02:00) Aspirin Chewable Tablet (Baby Aspirin Ch (08/08/21 02:00) Vital Signs/I&O 08/08/21 08/08/21 08/08/21 01:43 01:45 01:50 Temp 36.8 Pulse 87 Resp 20 B/P (MAP) 150/97 (114) Pulse Ox 87 O2 Delivery Nasal Cannula Room Air Nasal Cannula O2 Flow Rate 2.00 Blood Pressure Mean: 114 Diagnostic Imaging Diagonstic Imaging: Xray Plain Films/CT/US/NM/MRI: chest Comments [facility], [place] NAME: ALEYDA GUTIERREZ [facility] REC#: [id number] PT STATUS: ADM IN : 1950 PHYSICIAN: SHEY LAWRENCE MD ADMIT DATE: 08/08/21/ICU Signed Date of Exam:08/08/21 CHEST 1 VIEW, AP/PA ONLY EXAMINATION: Chest 1 view HISTORY: Chest pain COMPARISON: 12/23/2018 FINDINGS: Heart size and pulmonary vasculature are normal. There are patchy interstitial opacities seen throughout both lungs. No pleural effusion or pneumothorax. Degenerative changes of the thoracic spine. Osseous structures are otherwise intact. IMPRESSION: 1. Patchy interstitial opacities throughout both lungs which can be seen with atypical infection or pulmonary edema. Dictated by: Dictated on workstation # [id number] Dict: 08/08/21600 Trans: 08/08/21904 MIKAEL [id number] Interpreted by: CHRIS VANG DO Electronically signed by: CHRIS VANG DO 08/08/21904 Reviewed: Reviewed by Me Departure Communication (Admissions) Time/Spoke to Admitting Phy: 02:[address] Vitale she agrees with observation and consult cardiology. Time/Spoke to Consulting Phy: 02:00 Dr. Bauman recommends it is likely ischemia but not an STEMI. Lovenox, Plavix, aspirin, metoprolol and plan for catheterization in the morning after liquid breakfast. Impression Primary Impression: Acute coronary syndrome Disposition: ADMITTED INPATIENT Condition: Stable Admissions Decision to Admit Reason: Admit from ER (General) Decision to Admit/Date: Aug 08, 2021 Time/Decision to Admit Time: 02:03 Departure-Patient Inst. Referrals: FAUSTO VITALE MD (PCP/Family) Primary Care Physician Scripts Nitroglycerin (Nitroglycerin) 0.4 Mg Tab.subl 0.4 MG SL Q30M PRN for CHEST PAIN (ANGINA), #24 TAB 4 Refills Prov: FAUSTO VITALE MD 08/09/21 Aspirin (Aspirin EC) 81 Mg Tablet.dr 81 MG PO DAILY, #30 TAB 6 Refills Prov: FAUSTO VITALE MD 08/09/21 Clopidogrel Bisulfate (Clopidogrel) 75 Mg Tablet 75 MG PO DAILY, #30 TAB 6 Refills Prov: FAUSTO VITALE MD 08/09/21 SHEY LAWRENCE Aug 08, 2021 01:56
[2021-08-08 02:00] LABS: BASOPHILS % (AUTO) 0 % (0-10); EOSINOPHILS # (AUTO) 0.1 10^3/uL (0.0-0.3); EOSINOPHILS % (AUTO) 2 % (0-10); HEMATOCRIT 43 % (40-54); HEMOGLOBIN 14.5 g/dL (13.3-17.7); LYMPHOCYTES # (AUTO) 1.2 10^3/uL (1.0-4.0); LYMPHOCYTES % (AUTO) 12 % (12-44); MEAN CORPUSCULAR HEMOGLOBIN 30 pg (25-34); MEAN CORPUSCULAR HGB CONC 33 g/dL (32-36); MEAN CORPUSCULAR VOLUME 90 fL (80-99); MEAN PLATELET VOLUME 9.2 fL (9.0-12.2); MONOCYTES # (AUTO) 0.8 10^3/uL (0.0-1.0); MONOCYTES % (AUTO) 9 % (0-12); NEUTROPHILS # (AUTO) 7.4 10^3/uL (1.8-7.8); NEUTROPHILS % (AUTO) 77 % (42-75); PLATELET COUNT 210 10^3/uL (130-400); WHITE BLOOD COUNT 9.6 10^3/uL (4.3-11.0)
[2021-08-08] MEDS ORDERED: ASPIRIN 81 MG CHEW (CHILDREN'S ASA) PO ONE (02:00)
[2021-08-08] MEDS ORDERED: NITROGLYCERIN 0.4 MG SL TABS BTL 25'S SL PRN (02:00)
[2021-08-08 02:11] LABS: ALBUMIN 3.9 GM/DL (3.2-4.5); POTASSIUM 3.9 MMOL/L (3.6-5.0); PROTHROMBIN TIME PATIENT 13.3 SEC (12.2-14.7)
[2021-08-08 02:12] LABS: CALCIUM 8.9 MG/DL (8.5-10.1)
[2021-08-08 02:13] LABS: TOTAL PROTEIN 6.7 GM/DL (6.4-8.2)
[2021-08-08 02:15] LABS: BILIRUBIN,TOTAL 0.4 MG/DL (0.1-1.0)
[2021-08-08] MEDS ORDERED: meTOprolol SUCCINATE 100 MG (TOPROL XL) TAB PO ONE (02:15)
[2021-08-08] MEDS ORDERED: ENOXAPARIN 80 MG/0.8 ML (LOVENOX) SYR SC ONE (02:15)
[2021-08-08] MEDS ORDERED: CLOPIDOGREL 300 MG (PLAVIX) TABLET PO ONE (02:15)
[2021-08-08 02:17] LABS: CREATININE SERUM 1.15 MG/DL (0.60-1.30)
[2021-08-08 02:20] LABS: MAGNESIUM 2.2 MG/DL (1.6-2.4)
--- NOTE | 2021-08-08 02:47 | Tele-ICU Consult ---
History of Present Illness History of Present Illness Date Seen by Provider: Aug 08, 2021 Time Seen by Provider: 02:45 History of Present Illness 71 M presents with left sided chest pain, thought to have ACS, trop 0.079, BNP 179, on beta yolis, ASA, Plavix, Lovenox PMH schizophrenia EKG MARVEL, left obie block CXR mild congestion Allergies and Home Medications Allergies Coded Allergies: No Known Drug Allergies (Unverified , 12/06/18) Home Medications Benztropine Mesylate 1 Mg Tablet, 1 MG PO DAILY, (Reported) Benztropine Mesylate 1 Mg Tablet, 2 MG PO HS, (Reported) TAKES 2 (1MG) TABLETS Bupropion HCl 200 Mg Tablet.er, 200 MG PO DAILY, (Reported) Bupropion HCl 100 Mg Tablet.er, 100 MG PO HS, (Reported) Clonazepam 1 Mg Tablet, 1 MG PO BID Prescribed by: FAUSTO BEACH on 12/29/18 09 Metoprolol Tartrate 50 Mg Tablet, 50 MG PO BID Prescribed by: FAUSTO BEACH on 12/28/18 0907 Nicotine 1 Each Patch.td24, 21 MG TD DAILY, (Reported) Sennosides 8.6 Mg Tablet, 8.6 MG PO BID Prescribed by: FAUSTO BEACH on 12/28/18 0907 Past Medical/Social/Family Hx Immunizations Up To Date Influenza Vaccine Up-to-Date: Yes; Up-to-Date Date of Pneumonia Vaccine: Dec 27, 2014 Current Status Primary Language: Mosotho Preferred Spoken Language: Mosotho Review of Systems Constitutional: see HPI EENTM: see HPI Respiratory: see HPI Cardiovascular: see HPI Gastrointestinal: see HPI Genitourinary: see HPI Musculoskeletal: see HPI Skin: see HPI Psychiatric/Neurological: See HPI Focused Exam Height, Weight, BMI Height: 5'0.00" Weight: 142lbs. 9.0oz. 64.672495tn; 31.2 BMI Method:Stated Exam Exam Patient acknowledged, consented, and participated in this virtual visit which was conducted using real time audio/video Vital Signs Date Time Temp Pulse Resp B/P (MAP) Pulse Ox O2 Delivery O2 Flow Rate FiO2 08/08/21 01:50 Nasal Cannula 2.00 08/08/21 01:45 87 150/97 (114) 87 Room Air Height & Weight Height: 5'0.00" Weight: 142lbs. 9.0oz. 64.289094nc; 31.2 BMI Method:Stated General Appearance: No Apparent Distress HEENT: PERRL/EOMI, TMs Normal Respiratory: Chest Non Tender, Lungs Clear Cardiovascular: Regular Rate, Rhythm, No Edema Capillary Refill: Less Than 3 Seconds Results Lab Laboratory Tests 08/08/21 01:50 Assessment/Plan Assessment/Plan ACS-continue above meds Time spent with patient (mins): 20 DARIUS GRACIA MD Aug 08, 2021 02:47
[2021-08-08] MEDS ORDERED: LACTATED RINGERS 1,000 ML IV ONE (03:49)
[2021-08-08] MEDS ORDERED: ONDANSETRON 4 MG/2 ML (SDV) Z0FRAN IVP PRN (04:00)
[2021-08-08] MEDS ORDERED: morphine INJ 4 MG/ML 1 ML (VIAL/SYRINGE) IV PRN (04:00)
[2021-08-08] MEDS ORDERED: ACETAMINOPHEN 325 MG TABLET PO PRN (04:00)
[2021-08-08] MEDS: LACTATED RINGERS 1,000 ML IV SCH ×3 (04:15→18:20)
--- NOTE | 2021-08-08 06:03 | Diagnostic Imaging Report ---
EXAMINATION: Chest 1 view HISTORY: Chest pain COMPARISON: 12/23/2018 FINDINGS: Heart size and pulmonary vasculature are normal. There are patchy interstitial opacities seen throughout both lungs. No pleural effusion or pneumothorax. Degenerative changes of the thoracic spine. Osseous structures are otherwise intact. IMPRESSION: 1. Patchy interstitial opacities throughout both lungs which can be seen with atypical infection or pulmonary edema. Dictated by: Dictated on workstation # [id number]
--- NOTE | 2021-08-08 07:54 | History & Physical ---
LOGAN MURPHY 08/08/21 0754: History of Present Illness History of Present Illness Reason for visit/HPI CC: Chest pain HPI: Mr. Mccloud is a 71 year old male with a past medical history of schizophrenia who presented to the ED at [facility] with a chief complaint of chest pain. He is a resident at [facility]. This morning he was sleeping in bed and upon questioning would mumble and return to sleep. He was unable to answer questions or provide any history. Nursing reports that his level of consciousness varied throughout the night ranging from completely somnolent to alert and able to answer questions. Nursing also reports that he was given 100 mg of metoprolol causing his decreased heart rate and blood pressure. A CXR revealed patchy interstitial opacities characteristic of either atypical infection or edema. He is scheduled for a cardiac catheterization with Dr. Bauman this morning. HPI per ED: Patient ER by EMS from [facility] in [place], [place] with chief complaint that since 1800 yesterday evening he began to experience left-sided chest pain nonradiating. Patient has a history of schizophrenia and states that on the ride over here his pain went away and is now rating it as a nothing. It was quite severe earlier. EMS says he was dancing all over the cot but did not give him any aspirin or nitro. Patient says he is pain-free at this time. He is not having any nausea fevers chills cough shortness of air diarrhea or constipation. No known history of heart disease. Date of Admission Aug 08, 2021 at 02:05 Date Seen by a Provider: Aug 08, 2021 Time Seen by a Provider: 06:45 I consulted on this patient on 08/08/21 07:53 Attending Physician Fausto Vitale MD Admitting Physician Fausto Vitale MD Consult Allergies and Home Medications Allergies Coded Allergies: No Known Drug Allergies (Unverified , 12/06/18) Patient Home Medication List Acetaminophen (Tylenol Extra Strength) 500 Mg Tablet, 1,000 MG PO Q4H PRN for PAIN-MILD (1-4) OR TEMPATURE, (Reported) Entered as Reported by: JONATHAN CHADWICK on 08/08/21 1217 Last Action: Continued Lrzol-B-Keunbwedquoju (Beano) 400 Unit Tablet, 400 UNIT PO TIDWM, (Reported) Entered as Reported by: JONATHAN CHADWICK on 08/08/211216 Last Action: Converted Aspirin (Aspirin EC) 81 Mg Tablet.dr, 81 MG PO DAILY Prescribed by: FAUSTO VITALE on 08/09/21921 Benztropine Mesylate (Benztropine Mesylate) 1 Mg Tablet, 1 MG PO TID, (Reported) Entered as Reported by: VALENTIN KIMBALL on 12/07/181104 Last Action: Continued Benztropine Mesylate (Benztropine Mesylate) 0.5 Mg Tablet, 0.5 MG PO 1600, (Reported) Entered as Reported by: JONATHAN CHADWICK on 08/08/211216 Last Action: Converted Bethanechol Chloride (Bethanechol Chloride) 25 Mg Tablet, 25 MG PO QIDACHS, (Reported) Entered as Reported by: JONATHAN CHADWICK on 08/08/211216 Last Action: Continued Clopidogrel Bisulfate (Clopidogrel) 75 Mg Tablet, 75 MG PO DAILY Prescribed by: FAUSTO VITALE on 08/09/21921 Cyanocobalamin (Cyanocobalamin Injection) 1,000 Mcg/Ml Inj, 1,000 MCG IM MONTHLY, (Reported) Entered as Reported by: JONATHAN CHADWICK on 08/08/211216 Last Action: Reviewed Fluoxetine HCl (Fluoxetine HCl) 20 Mg Capsule, 60 MG PO DAILY, (Reported) Entered as Reported by: JONATHAN CHADWICK on 08/08/211216 Last Action: Continued Lorazepam (Ativan) 0.5 Mg Tablet, 0.5 MG PO 0600,2100, (Reported) Entered as Reported by: JONATHAN CHADWICK on 08/08/211216 Last Action: Continued Lorazepam (Ativan) 1 Mg Tablet, 1 MG PO 1400, (Reported) Entered as Reported by: JONATHAN CHADWICK on 08/08/211234 Last Action: Continued Losartan Potassium (Losartan Potassium) 50 Mg Tablet, 50 MG PO DAILY, (Reported) Entered as Reported by: JONATHAN CHADWICK on 08/08/211216 Last Action: Continued Melatonin (Melatonin) 5 Mg Tablet, 10 MG PO HS, (Reported) Entered as Reported by: JONATHAN CHADWICK on 08/08/211216 Last Action: Converted Melatonin (Melatonin) 3 Mg Tablet, 3 MG PO UD PRN for IF PT AWAKENS BEFORE 0300, (Reported) Entered as Reported by: JONATHAN CHADWICK on 08/08/21 123 Last Action: Edited Metoprolol Tartrate (Metoprolol Tartrate) 25 Mg Tablet, 12.5 MG PO BID, (Reported) Entered as Reported by: JONATHAN CHADWICK on 08/08/211216 Last Action: Continued Nicotine (Nicotine Patch) 1 Each Patch.dysq, 14 MG TD DAILY PRN for NICOTINE REPLACEMENT, (Reported) Entered as Reported by: JONATHAN CHADWICK on 08/08/211216 Last Action: Converted Nitroglycerin (Nitroglycerin) 0.4 Mg Tab.subl, 0.4 MG SL Q30M PRN for CHEST PAIN (ANGINA) Prescribed by: FAUSTO VITALE on 08/09/21 09 Olanzapine (Olanzapine) 20 Mg Tablet, 20 MG PO HS, (Reported) Entered as Reported by: JONATHAN CHADWICK on 08/08/211216 Last Action: Converted Olanzapine (Olanzapine) 20 Mg Tablet, 5 MG PO 1400, (Reported) Entered as Reported by: JONATHAN CHADWICK on 08/08/211514 Last Action: Converted Phenazopyridine HCl (Pyridium) 100 Mg Tablet, 100 MG PO Q8H PRN for URINE RETENTION, (Reported) Entered as Reported by: JONATHAN CHADWICK on 08/08/211216 Last Action: Continued Polyethylene Glycol 3350 (Miralax) 17 Gm Powd.pack, 8.5 GM PO DAILY, (Reported) Entered as Reported by: JONATHAN CHADWICK on 08/08/211216 Last Action: Continued Pramipexole Di-HCl (Pramipexole Dihydrochloride) 0.25 Mg Tablet, 0.25 MG PO HS, (Reported) Entered as Reported by: JONATHAN CHADWICK on 08/08/211216 Last Action: Converted Sennosides (Senna) 8.6 Mg Tablet, 8.6 MG PO BID, (Reported) Entered as Reported by: JONATHAN CHADWICK on 08/08/211216 Last Action: Continued Simethicone (Simethicone) 80 Mg Tab.chew, 80 MG PO BID, (Reported) Entered as Reported by: JONATHAN CHADWICK on 08/08/211216 Last Action: Continued Tamsulosin HCl (Flomax) 0.4 Mg Cap, 0.4 MG PO BID, (Reported) Entered as Reported by: JONATHAN CHADWICK on 08/08/211216 Last Action: Continued Discontinued Medications Benztropine Mesylate (Benztropine Mesylate) 1 Mg Tablet, 1 MG PO DAILY, (Reported) Discontinued Reason: No Longer Taking Entered as Reported by: VALENTIN KIMBALL on 12/07/18 1105 Last Action: Discontinued Bupropion HCl (Wellbutrin Sr) 200 Mg Tablet.er, 200 MG PO DAILY, (Reported) Discontinued Reason: No Longer Taking Entered as Reported by: BECKY LIU on 12/06/181106 Last Action: Discontinued Bupropion HCl (Wellbutrin Sr) 100 Mg Tablet.er, 100 MG PO HS, (Reported) Discontinued Reason: No Longer Taking Entered as Reported by: AFSANEH LAMAR on 12/22/181949 Last Action: Discontinued Clonazepam (Clonazepam) 1 Mg Tablet, 1 MG PO BID Discontinued Reason: No Longer Taking Prescribed by: FAUSTO VITALE on 12/29/18906 Last Action: Discontinued Lorazepam (Ativan) 0.5 Mg Tablet, 1 MG PO 1400, (Reported) Discontinued Reason: No Longer Taking Entered as Reported by: JONATHAN CHADWICK on 08/08/211216 Last Action: Discontinued Metoprolol Tartrate (Metoprolol Tartrate) 50 Mg Tablet, 50 MG PO BID Discontinued Reason: No Longer Taking Prescribed by: FAUSTO VITALE on 12/28/18906 Last Action: Discontinued Olanzapine (Olanzapine) 5 Mg Tablet, 5 MG PO 1600, (Reported) Discontinued Reason: No Longer Taking Entered as Reported by: JONATHAN CHADWICK on 08/08/21 1236 Last Action: Discontinued Sennosides (Senna) 8.6 Mg Tablet, 8.6 MG PO BID Discontinued Reason: No Longer Taking Prescribed by: FAUSTO VITALE on 12/28/18906 Last Action: Discontinued Past Ttcbdkm-Avhwlv-Rpzira Hx Immunizations Up To Date Date of Pneumonia Vaccine: Dec 27, 2014 Seasonal Allergies Seasonal Allergies: No Current Status Primary Language: South African Preferred Spoken Language: South African Past Medical History Surgeries: Tonsillectomy Currently Using CPAP: No Hypertension Dementia Sexually Transmitted Disease: No HIV/AIDS: No Loss of Vision: Denies Hearing Impairment: Denies Schizophrenia Blood Disorders: No Family Medical History Heart Disease, Cancer, Diabetes, Hypertension Review of Systems ROS-Unable to Obtain: Unable to obtain ROS, patient was not arousable for questions Physical Exam Vital Signs Vital Signs - First Documented 08/08/21 08/08/21 08/08/21 01:43 01:45 01:50 Temp 36.8 Pulse 87 Resp 20 B/P (MAP) 150/97 (114) Pulse Ox 87 O2 Delivery Nasal Cannula O2 Flow Rate 2.00 Capillary Refill : Less Than 3 Seconds Height, Weight, BMI Height: 5'0.00" Weight: 142lbs. 9.0oz. 64.687791pr; 22.72 BMI Method:Stated General Appearance: No Apparent Distress Neck: Normal Inspection; No Lymphadenopathy (L), No Lymphadenopathy (R) Respiratory: Chest Non Tender, Lungs Clear, Decreased Breath Sounds (Diminished breath sounds) Cardiovascular: No Edema, Normal Peripheral Pulses (Strong peripheral pulses), Bradycardia (HR around 45-55) Gastrointestinal: Normal Bowel Sounds, Non Tender, Soft Extremity: Normal Capillary Refill, Normal Inspection Neurologic/Psychiatric: No Alert, No Oriented x3; Other (Would slightly open eyes and mumble upon questioning but could not provide any history or answer questions) Skin: Normal Color, Warm/Dry Lymphatic: No Adenopathy (Head and neck) Assessment/Plan Assessment and Plan Assessment: Chest pain - NSTEMI vs. unstable angina - EKG did not show ST changes Elevated cardiac enzymes - Myoglobin 186.7 - Troponin 0.079 Elevated BNP - 172.1 Bradycardia - 2/2 medication Schizophrenia AMS Plan: Currently on IVF clopidogrel, aspirin, and morphine Cardiology consulted with Dr. Bauman Plan is for cardiac catheterization this morning with Dr. Bauman Results of heart cath with guide next steps in treatment Clinical Quality Measures AMI/AHF: ASA po Prior to arrival: No FAUSTO VITALE MD 08/10/212108: History of Present Illness History of Present Illness Reason for visit/HPI ALEYDA IS A 71 Y/O MALE WHO IS WELL KNOWN TO ME FROM CLINIC. HE PRESENTED TO THE HOSPITAL WITH CHEST PAIN WHICH HAD STARTED FROM SLEEP. HE REPORTS THAT HE DOES NOT REMEMBER ALL OF THE EVENTS BUT HE REMEMBERS THE PAIN IN HIS LEFT CHEST AND SHOULDER. STAFF REPORT FROM THE [facility] IS THAT HE HAD A CHANGE IN HIS MENTATION AND THEY CALLED THE AMBULANCE FOR TRANSFER. Date of Admission 08/08/21 Date Seen by a Provider: Aug 08, 2021 Time Seen by a Provider: 08:00 Attending Physician MD NYDIA Admitting Physician MD NYDIA Consult CARDIOLOGY Allergies and Home Medications Allergies Coded Allergies: No Known Drug Allergies (Unverified , 12/06/18) Patient Home Medication List Home Medication List Reviewed: Yes Acetaminophen (Tylenol Extra Strength) 500 Mg Tablet, 1,000 MG PO Q4H PRN for PAIN-MILD (1-4) OR TEMPATURE, (Reported) Entered as Reported by: JONATHAN CHADWICK on 08/08/211216 Last Action: Continued Jwads-E-Yeqvhilirpkrk (Beano) 400 Unit Tablet, 400 UNIT PO TIDWM, (Reported) Entered as Reported by: JONATHAN CHADWICK on 08/08/211216 Last Action: Converted Aspirin (Aspirin EC) 81 Mg Tablet.dr, 81 MG PO DAILY Prescribed by: FAUSTO VITALE on 08/09/21921 Benztropine Mesylate (Benztropine Mesylate) 1 Mg Tablet, 1 MG PO TID, (Reported) Entered as Reported by: VALENTIN KIMBALL on 12/07/18 1105 Last Action: Continued Benztropine Mesylate (Benztropine Mesylate) 0.5 Mg Tablet, 0.5 MG PO 1600, (Reported) Entered as Reported by: JONATHAN CHADWICK on 08/08/211216 Last Action: Converted Bethanechol Chloride (Bethanechol Chloride) 25 Mg Tablet, 25 MG PO QIDACHS, (Reported) Entered as Reported by: JONATHAN CHADWICK on 08/08/211216 Last Action: Continued Clopidogrel Bisulfate (Clopidogrel) 75 Mg Tablet, 75 MG PO DAILY Prescribed by: FAUSTO VITALE on 08/09/21921 Cyanocobalamin (Cyanocobalamin Injection) 1,000 Mcg/Ml Inj, 1,000 MCG IM MONTHLY, (Reported) Entered as Reported by: JONATHAN CHADWICK on 08/08/211216 Last Action: Reviewed Fluoxetine HCl (Fluoxetine HCl) 20 Mg Capsule, 60 MG PO DAILY, (Reported) Entered as Reported by: JONATHAN CHADWICK on 08/08/211216 Last Action: Continued Lorazepam (Ativan) 0.5 Mg Tablet, 0.5 MG PO 0600,2100, (Reported) Entered as Reported by: JONATHAN CHADWICK on 08/08/211216 Last Action: Continued Lorazepam (Ativan) 1 Mg Tablet, 1 MG PO 1400, (Reported) Entered as Reported by: JONATHAN CHADWICK on 08/08/211234 Last Action: Continued Losartan Potassium (Losartan Potassium) 50 Mg Tablet, 50 MG PO DAILY, (Reported) Entered as Reported by: JONATHAN CHADWICK on 08/08/211216 Last Action: Continued Melatonin (Melatonin) 5 Mg Tablet, 10 MG PO HS, (Reported) Entered as Reported by: JONATHAN CHADWICK on 08/08/211216 Last Action: Converted Melatonin (Melatonin) 3 Mg Tablet, 3 MG PO UD PRN for IF PT AWAKENS BEFORE 0300, (Reported) Entered as Reported by: JONATHAN CHADWICK on 08/08/211234 Last Action: Edited Metoprolol Tartrate (Metoprolol Tartrate) 25 Mg Tablet, 12.5 MG PO BID, (Reported) Entered as Reported by: JONATHAN CHADWICK on 08/08/211216 Last Action: Continued Nicotine (Nicotine Patch) 1 Each Patch.dysq, 14 MG TD DAILY PRN for NICOTINE REPLACEMENT, (Reported) Entered as Reported by: JONATHAN CHADWICK on 08/08/211216 Last Action: Converted Nitroglycerin (Nitroglycerin) 0.4 Mg Tab.subl, 0.4 MG SL Q30M PRN for CHEST PAIN (ANGINA) Prescribed by: FAUSTO VITALE on 08/09/21 09 Olanzapine (Olanzapine) 20 Mg Tablet, 20 MG PO HS, (Reported) Entered as Reported by: JONATHAN CHADWICK on 08/08/211216 Last Action: Converted Olanzapine (Olanzapine) 20 Mg Tablet, 5 MG PO 1400, (Reported) Entered as Reported by: JONATHAN CHADWICK on 08/08/211514 Last Action: Converted Phenazopyridine HCl (Pyridium) 100 Mg Tablet, 100 MG PO Q8H PRN for URINE RETENTION, (Reported) Entered as Reported by: JONATHAN CHADWICK on 08/08/211216 Last Action: Continued Polyethylene Glycol 3350 (Miralax) 17 Gm Powd.pack, 8.5 GM PO DAILY, (Reported) Entered as Reported by: JONATHAN CHADWICK on 08/08/211216 Last Action: Continued Pramipexole Di-HCl (Pramipexole Dihydrochloride) 0.25 Mg Tablet, 0.25 MG PO HS, (Reported) Entered as Reported by: JONATHAN CHADWICK on 08/08/211216 Last Action: Converted Sennosides (Senna) 8.6 Mg Tablet, 8.6 MG PO BID, (Reported) Entered as Reported by: JONATHAN CHADWICK on 08/08/211216 Last Action: Continued Simethicone (Simethicone) 80 Mg Tab.chew, 80 MG PO BID, (Reported) Entered as Reported by: JONATHAN CHADWICK on 08/08/211216 Last Action: Continued Tamsulosin HCl (Flomax) 0.4 Mg Cap, 0.4 MG PO BID, (Reported) Entered as Reported by: JONATHAN CHADWICK on 08/08/211216 Last Action: Continued Discontinued Medications Benztropine Mesylate (Benztropine Mesylate) 1 Mg Tablet, 1 MG PO DAILY, (Reported) Discontinued Reason: No Longer Taking Entered as Reported by: VALENTIN KIMBALL on 12/07/18 1105 Last Action: Discontinued Bupropion HCl (Wellbutrin Sr) 200 Mg Tablet.er, 200 MG PO DAILY, (Reported) Discontinued Reason: No Longer Taking Entered as Reported by: BECKY LIU on 12/06/181106 Last Action: Discontinued Bupropion HCl (Wellbutrin Sr) 100 Mg Tablet.er, 100 MG PO HS, (Reported) Discontinued Reason: No Longer Taking Entered as Reported by: AFSANEH LAMAR on 12/22/18 1950 Last Action: Discontinued Clonazepam (Clonazepam) 1 Mg Tablet, 1 MG PO BID Discontinued Reason: No Longer Taking Prescribed by: FAUSTO VITALE on 12/29/18 09 Last Action: Discontinued Lorazepam (Ativan) 0.5 Mg Tablet, 1 MG PO 1400, (Reported) Discontinued Reason: No Longer Taking Entered as Reported by: JONATHAN CHADWICK on 08/08/211216 Last Action: Discontinued Metoprolol Tartrate (Metoprolol Tartrate) 50 Mg Tablet, 50 MG PO BID Discontinued Reason: No Longer Taking Prescribed by: FAUSTO VITALE on 12/28/18906 Last Action: Discontinued Olanzapine (Olanzapine) 5 Mg Tablet, 5 MG PO 1600, (Reported) Discontinued Reason: No Longer Taking Entered as Reported by: JONATHAN CHADWICK on 08/08/21 1236 Last Action: Discontinued Sennosides (Senna) 8.6 Mg Tablet, 8.6 MG PO BID Discontinued Reason: No Longer Taking Prescribed by: FAUSTO VITALE on 12/28/18906 Last Action: Discontinued Past Atcsgyw-Ggqpou-Fjwywo Hx Patient Social History Marrital Status: single Number of Children: 0 Number of living children: 0 Living Status: LIVES AT [facility] Employed/Student: unemployed Tobacco Use?: Yes Tobacco type used: Cigarettes Smoking Status: Current Everyday Smoker Use of E-Cig and/or Vaping dev: No Current Status Implanted or Applied Medical D: None Past Medical History COPD Angina, Hypertension Chronic Constipation Loss of Vision: Denies Hearing Impairment: Hard of Hearing Anxiety, Schizophrenia Blood Disorders: No Adverse Reaction/Blood Tranf: No Family Medical History Reviewed Nursing Family Hx Heart Disease, Cancer Review of Systems Constitutional: other (ALERT) EENTM: no symptoms reported, other (NO THROAT PAIN, DRYNESS, HEADACHE) Respiratory: other (PT DENIES COUGH and shORTNESS OF BREATH) Cardiovascular: chest pain (IMPROVED) Gastrointestinal: No RUQ, No LUQ, No RLQ, No LLQ, No abdominal pain, No consti pation, No diarrhea, No dysphagia, No heartburn, No loss of appetite, No nausea, No vomiting Genitourinary: no symptoms reported Musculoskeletal: No back pain, No joint pain, No muscle pain, No muscle stiffness, No muscle cramps; muscle twitching, muscle weakness (GENERALIZED) Skin: lesions (SCRATCH TRIPLETT) Psychiatric/Neurological: Anxiety Physical Exam General Appearance: No Apparent Distress, WD/WN HEENT: PERRL/EOMI Neck: Full Range of Motion, Normal Inspection, Non Tender, Supple Respiratory: Chest Non Tender, No Accessory Muscle Use, No Respiratory Distress, Decreased Breath Sounds (DIFFUSELY) Cardiovascular: No Edema, Normal Peripheral Pulses (Strong peripheral pulses), Bradycardia (HR around 45-55) Gastrointestinal: Normal Bowel Sounds, No Organomegaly, No Pulsatile Mass, Non Tender, Soft Rectal: Deferred Extremity: Normal Capillary Refill, Other (SCRATCHES ON LEGS) Neurologic/Psychiatric: Alert, Oriented x3, No Motor/Sensory Deficits, Normal Mood/Affect Lymphatic: No Adenopathy (Head and neck) Assessment/Plan Assessment and Plan CHEST PAIN NSTEMI ELEVATED BNP BRADYCARDIA CHRONIC SCHIZOPHRENIA HYPERTENSION EXTRAPYRAMIDAL SYMPTOMS CHRONIC CONSTIPATION CHRONIC TOBACCOISM CHEST PAIN WITH NSTEMI AND ELEVATED BNP - CONTINUE WITH PLANS FOR HEART CATHETERIZATION TODAY - DISCUSSED WITH CARDIOLOGY - WILL ATTEMPT VIA WRIST IF POSSIBLE. BRADYCARDIA - PT ON METOPROLOL, HEART RATE STABLE AT THIS TIME. CHRONIC SCHIZOPHRENIA - CONTINUE WITH ANTIPSYCHOTIC USE. HYPERTENSION - PT ON METOPROLOL OUTPATIENT. EXTRAPYRAMIDAL SYMPTOMS - RESTART BENZTROPINE CHRONIC CONSTIPATION - WILL RESUME HOME regimEN CHRONIC TOBACCOISM Admission Diagnosis CHEST PAIN NSTEMI ELEVATED BNP BRADYCARDIA CHRONIC SCHIZOPHRENIA HYPERTENSION EXTRAPYRAMIDAL SYMPTOMS CHRONIC CONSTIPATION CHRONIC TOBACCOISM Admission Status: Inpatient Order (span 2 midnights) Reason for Inpatient Admission: ANTICIPATE AT LEAST 2 DAYS IN HOSPITAL FOR EVAL AND T[facility]ATMENT Supervisory-Addendum Brief Verification & Attestation Participated in pt care: history, MDM, physical Personally performed: exam, history, MDM, supervision of care Care discussed with: Medical Student Procedures: n/a Results interpretation: Verified all documentation DOCUMENTATION FOR dETAILS LOGAN MURPHY Aug 08, 2021 07:54 FAUSTO VITALE MD Aug 10, 2021 21:09
[2021-08-08] MEDS ORDERED: meTOproloL SUCCINATE 50 MG (TOPROL XL) TAB PO SCH (09:00)
--- NOTE | 2021-08-08 09:03 | Consultation-Cardiology ---
HPI-Cardiology Cardiology Consultation: Date of Consultation 08/08/21 Time Seen by a Provider: 08:30 Date of Admission 08-07-21 Attending Physician Fausto Vitale MD Admitting Physician Fausto Vitale MD Consulting Physician Howie Bauman MD HPI: Chief Complaint: Chest pain Mr. Mccloud is a 71 yr old male who reside at [facility]. He has been admitted to ICU 9 from the ED with EKG changes and chest pain. He reports he developed chest pain on Friday, mid-sternal without radiation. He reports he was just sitting at the time. He states he felt generally unwell at the time. He reports feeling SOB at the time. He reports having palpitations at the time of the chest pain. No syncope or near syncope. He is unsure of how long the symptoms lasted. He is currently not reporting any chest pain. He states he has not had symptoms like this before. Review of Systems-Cardiology Review of Systems Constitutional: No chills, No fever Eyes: No vision change Ears/Nose/Throat: No epistaxis, No recent hearing loss Respiratory: As described under HPI Cardiovascular: As described under HPI Gastrointestinal: As described under HPI; No constipation, No diarrhea, No vomiting Genitourinary: No dysuria, No hematuria Musculoskeletal: no symptoms reported Skin: No rash on exposed areas, No ulcerations on exposed areas Psychiatric/Neurological: anxiety, depression; No seizure, No focal weakness, No syncope Hematologic: No bleeding abnormalities [id number] Hx Patient Social History 2nd Hand Smoke Exposure: Yes Immunizations Up To Date Date of Pneumonia Vaccine: Dec 27, 2014 Past Medical History PMH As described under Assessment. Family Medical History Family Medical History: He reports no known family h/o CAD. Allergies and Home Medications Allergies Coded Allergies: No Known Drug Allergies (Unverified , 12/06/18) Patient Home Medication List Benztropine Mesylate (Benztropine Mesylate) 1 Mg Tablet, 1 MG PO DAILY, (Reported) Entered as Reported by: VALENTIN KIMBALL on 12/07/18 1105 Benztropine Mesylate (Benztropine Mesylate) 1 Mg Tablet, 2 MG PO HS, (Reported) Entered as Reported by: VALENTIN KIMBALL on 12/07/18 1104 Bupropion HCl (Wellbutrin Sr) 200 Mg Tablet.er, 200 MG PO DAILY, (Reported) Entered as Reported by: BECKY LIU on 12/06/18 1107 Bupropion HCl (Wellbutrin Sr) 100 Mg Tablet.er, 100 MG PO HS, (Reported) Entered as Reported by: AFSANEH LAMAR on 12/22/18 1950 Clonazepam (Clonazepam) 1 Mg Tablet, 1 MG PO BID Prescribed by: FAUSTO VITALE on 12/29/18906 Metoprolol Tartrate (Metoprolol Tartrate) 50 Mg Tablet, 50 MG PO BID Prescribed by: FAUSTO VITALE on 12/28/18906 Nicotine (Nicotine Patch) 1 Each Patch.td24, 21 MG TD DAILY, (Reported) Entered as Reported by: VALENTIN KIMBALL on 12/23/18 0950 Sennosides (Senna) 8.6 Mg Tablet, 8.6 MG PO BID Prescribed by: FAUSTO VITALE on 12/28/18 09 Physical Exam-Cardiology Physical Exam Vital Signs/I&O 08/08/21 08/08/21 08/08/21 08/08/21 01:43 01:45 01:50 03:30 Temp 36.8 36.8 Pulse 87 98 Resp 20 24 B/P (MAP) 150/97 (114) 137/111 Pulse Ox 87 98 O2 Delivery Nasal Cannula Room Air Nasal Cannula Nasal Cannula O2 Flow Rate 2.00 4.00 08/08/21 08/08/21 08/08/21 08/08/21 03:46 03:47 04:00 04:00 Temp 36.5 Pulse 92 66 79 Resp 16 16 B/P (MAP) 166/112 (130) 127/79 (95) Pulse Ox 94 97 91 O2 Delivery Room Air Nasal Cannula Nasal Cannula O2 Flow Rate 4.00 4.00 4.00 08/08/21 08/08/21 08/08/21 08/08/21 04:15 04:30 05:00 05:30 Pulse 64 48 52 48 Resp 26 23 24 14 B/P (MAP) 112/81 (91) 100/53 (69) 104/74 (84) 112/58 (76) Pulse Ox 96 97 94 95 O2 Delivery Nasal Cannula Nasal Cannula Nasal Cannula Nasal Cannula O2 Flow Rate 4.00 4.00 4.00 4.00 2/908/08/21 08/08/21 08/08/21 06:00 06:43 06:44 07:00 Pulse 48 59 Resp 18 B/P (MAP) 108/61 (77) Pulse Ox 98 97 O2 Delivery Nasal Cannula Nasal Cannula Nasal Cannula O2 Flow Rate 4.00 4.00 2.00 08/08/21 08/08/21 08/08/21 08/08/21 07:00 08:00 08:24 09:00 Temp 36.8 Pulse 47 67 53 Resp 15 23 17 B/P (MAP) 112/61 (78) 123/63 (83) 123/71 (88) Pulse Ox 95 95 99 O2 Delivery Nasal Cannula Nasal Cannula Nasal Cannula O2 Flow Rate 4.00 4.00 4.00 Capillary Refill : Less Than 3 Seconds Constitutional: AAO x 3, well-developed, well-nourished HEENT: hearing is well preserved, oral hygience is good Neck: No carotid bruit; carotid pulses are 2 + bilaterally Respiratory: No accessory muscle use, No respiratory distress; chest expansion is symmetric, chest is bilaterally symmetric, other (coarse breath sounds bases bilat) Cardiovascular: regular rate-rhythm; No JVD; bradycardia, S1 and S2 Gastrointestinal: No tender; soft, round, audible bowel sounds Extremities: no lower extremity edema bilateral Neurologic/Psychiatric: grossly intact Skin: No rash on exposed areas, No ulcerations on exposed areas; other (multiple excoriations to legs bilat) Data Review Labs Laboratory Tests 08/08/21 01:50: White Blood Count 9.6, Red Blood Count 4.81, Hemoglobin 14.5, Hematocrit 43, Mean Corpuscular Volume 90, Mean Corpuscular Hemoglobin 30, Mean Corpuscular Hemoglobin Concent 33, Red Cell Distribution Width 12.2, Platelet Count 210, Mean Platelet Volume 9.2, Immature Granulocyte % (Auto) 0, Neutrophils (%) (Auto) 77H, Lymphocytes (%) (Auto) 12, Monocytes (%) (Auto) 9, Eosinophils (%) (Auto) 2, Basophils (%) (Auto) 0, Neutrophils # (Auto) 7.4, Lymphocytes # (Auto) 1.2, Monocytes # (Auto) 0.8, Eosinophils # (Auto) 0.1, Basophils # (Auto) 0.0, Immature Granulocyte # (Auto) 0.0, Prothrombin Time 13.3, INR Comment 1.0, Activated Partial Thromboplast Time 33, Sodium Level 136, Potassium Level 3.9, Chloride Level 106, Carbon Dioxide Level 18L, Anion Gap 12, Blood Urea Nitrogen 18, Creatinine 1.15, Estimat Glomerular Filtration Rate 67, BUN/Creatinine Ratio 16, Glucose Level 119H, Calcium Level 8.9, Corrected Calcium 9.0, Magnesium Level 2.2, Total Bilirubin 0.4, Aspartate Amino Transf (AST/SGOT) 19, Alanine Aminotransferase (ALT/SGPT) 20, Alkaline Phosphatase 98, Myoglobin 186.7H, Troponin I 0.079H, B-Type Natriuretic Peptide 172.1H, Total Protein 6.7, Albumin 3.9 08/08/21 02:05: Influenza Type A (RT-PCR) Not Detected, Influenza Type B (RT-PCR) Not Detected, SARS-CoV-2 RNA (RT-PCR) Not Detected 08/08/21 08:19: Troponin I 6.172*H 08/08/21 09:35: Radiology NAME: ALEYDA [facility] REC#: [id number] PT STATUS: ADM IN : 1950 PHYSICIAN: SHEY LAWRENCE MD ADMIT DATE: 08/08/21/ICU Draft Date of Exam:08/08/21 CHEST 1 VIEW, AP/PA ONLY EXAMINATION: Chest 1 view HISTORY: Chest pain COMPARISON: 12/23/2018 FINDINGS: Heart size and pulmonary vasculature are normal. There are patchy interstitial opacities seen throughout both lungs. No pleural effusion or pneumothorax. Degenerative changes of the thoracic spine. Osseous structures are otherwise intact. IMPRESSION: 1. Patchy interstitial opacities throughout both lungs which can be seen with atypical infection or pulmonary edema. Dictated on workstation # [id number] Dict: 08/08/21 0601 Trans: 08/08/21 0603 MIKAEL [id number] Interpreted by: CHRIS VANG DO Electronically signed by: A/P-Cardiology Assessment/Admission Diagnosis NSTEMI Tobaccosim - cessation advised Schizophrenia Discussion and Recomendations NSTEMI - advise cardiac cath to eval coronary status - Echocardiogram to eval structure and function Monitor lab closely Replace electrolytes as indicated Reduce BB d/t episodes of sinus bradycardia (albeit asymptomatic) Continue ASA and Plavix Further recs will be based on his hospital course Clinical Quality Measures AMI/AHF: ASA po Prior to arrival: JAMES Daniel Aug 08, 2021 09:03
[2021-08-08] MEDS: ASPIRIN E.C. 81 MG (ECOTRIN) TAB PO SCH (09:10)
[2021-08-08] MEDS: CLOPIDOGREL 75 MG (PLAVIX) TABLET PO SCH (09:10)
[2021-08-08] MEDS ORDERED: NS IV 1000 ML 0 ML ONE (09:37)
[2021-08-08] MEDS ORDERED: fentaNYL INJ 100 MCG/2 ML AMP ONE ×2 (09:37→09:48)
[2021-08-08] MEDS ORDERED: LIDOCAINE 1% INJ 20 ML VIAL ONE (09:37)
[2021-08-08] MEDS ORDERED: HEParin (CATH LAB) 0 ML IV ONE ×2 (09:37→10:39)
[2021-08-08] MEDS ORDERED: NS IV 1000 ML 1,000 ML ONE (09:48)
[2021-08-08] MEDS ORDERED: VERAPAMIL 5 MG/2 ML (CALAN) VIAL IV ONE (09:48)
[2021-08-08] MEDS ORDERED: MIDAZOLAM 5 MG/5 ML (VERSED) VIAL ONE (09:48)
[2021-08-08] MEDS ORDERED: NITRO DRIP 25000 MCG/D5W 250 ML IV ONE (09:49)
[2021-08-08] MEDS ORDERED: HEParin 1000 UNIT/ML (10ML VIAL) FOR BOLUS ONE (09:49)
--- NOTE | 2021-08-08 09:49 | Conscious Sedation/ASA ---
Conscious Sedation Pre-Proced Time 09:48 ASA Score 3 For ASA 3 and 4: Consider anesthesia and medical clearance. Also, for patients with a history of failed moderate sedation consider anesthesia. Airway Lungs Heart ASA score ASA 1: a normal healthy patient ASA 2: a patient with a mild systemic disease (mid diabetes, controlled hypertension, obesity x ASA 3: a patient with a severe systemic disease that limits activity (angina, COPD, prior Myocardial infarction) ASA 4: a patient with an incapacitating disease that is a constant threat to life (CHF, renal failure) ASA 5: a moribund patient not expected to survive 24 hrs. (ruptured aneurysm) ASA 6: a declared brain- patient whose organs are being harvested. For emergent operations, add the letter E after the classification Mallampati Classification Grade 3 Sedation Plan Analgesia, Amnesia, Plan communicated to team members, Discussed options with patient/fam, Discussed risks with patient/fam The patient is an appropriate candidate to undergo the planned procedure, sedation, and anesthesia. The patient immediately re-assessed prior to indication. DONNA BUCKLEY MD Aug 08, 2021 09:49
[2021-08-08 09:58] LABS: INR 1.1 (0.8-1.4); PROTHROMBIN TIME PATIENT 14.1 SEC (12.2-14.7)
--- NOTE | 2021-08-08 10:40 | Cardiac Cath Report ---
Cardiac Cath Report Physician (s)/Granite Cutter Apprentice (s) Physician DONNA BUCKLEY MD Pre-Procedure Diagnosis Pre-Procedure Diagnosis: Non-ST elevation myocardial infarction Post-Procedure Note Procedure Start Date: Aug 08, 2021 Name of Procedure: Left heart catheterization Aortic arch angiogram Findings/Procedure Note PROCEDURE NOTE: 71-year-old gentleman with history of hypertension, tobaccoism, schizophrenia, admitted with chest pain, had elevation of troponin, scheduled for cardiac catheterization possible PTCA. After explaining the procedure to the patient, all pros and cons were explained, all questions were answered. The patient signed the consent and then he was placed on the cardiac catheterization laboratory. Groin was prepped SL fashion local anesthesia was used. Sheath placed in the right radial artery, [place] catheter was prolapsed to the left ventricular cavity, I had some difficulty advancing through the aortic arch. Pressure was measured, pullback LV to aorta was done. Engaged the right and left coronary system, angiogram was done. Left ventriculogram was not done. I evaluated the aortic arch due to the significant tortuosity and difficulty during the procedure At the end of the procedure the sheath was removed. Vascular band was used FINDINGS: Hemodynamics LV 109/9, end-diastolic pressure of 9 Aorta 114/65 mean of 85 ANATOMY: Left Main has severe stenosis distally Left Anterior Descending has ostial severe stenosis otherwise mild to moderate disease Left Circumflex has mild to moderate disease nonobstructive disease Right Coronary Artery has severe stenosis proximally LV Gram was not done, pressure was measured Aorta evaluation was done showing hypertensive changes in the aortic arch, no dissection or aneurysm, normal origin of the brachiocephalic artery, left carotid and left subclavian arteries. CONCLUSION: 1. Severe distal left main coronary artery stenosis extending to the ostium of the LAD 2. Severe proximal right coronary artery stenosis DISCUSSION AND RECOMMENDATION: Maximize medical therapy and arrange to transfer for evaluation for CABG Anesthesia Type: Conscious Sedation Estimated blood loss (mL): 10 ml Contrast Amount: 39 ml Total Radiation Dose: 280 mGy Post-Procedure Diagnosis Post-operative diagnosis: Non-ST elevation myocardial infarction Coronary artery disease Hypertension Hyperlipidemia DONNA BUCKLEY MD Aug 08, 2021 10:40
[2021-08-08] MEDS ORDERED: NS IV 1000 ML 1,000 ML IV SCH (10:45)
--- NOTE | 2021-08-08 11:55 | Consultation-Cardiology ---
HPI-Cardiology Cardiology Consultation: Date of Consultation 08/08/21 Time Seen by a Provider: 09:00 Date of Admission Attending Physician Fausto Vitale MD Admitting Physician Fausto Vitale MD Consulting Physician ALEXANDRA CHOE MD, MA, FACP, FACC, FSCAI, CCDS HPI: Chief Complaint: Chest pain Mr. Mccloud is a 71 yr old male who reside at [facility]. He has been admitted to ICU 9 from the ED with EKG changes and chest pain. He reports he developed chest pain on Friday, mid-sternal without radiation. He reports he was just sitting at the time. He states he felt generally unwell at the time. He reports feeling SOB at the time. He reports having palpitations at the time of the chest pain. No syncope or near syncope. He is unsure of how long the symptoms lasted. He is currently not reporting any chest pain. He states he has not had symptoms like this before. Review of Systems-Cardiology Review of Systems Constitutional: No chills, No fever Eyes: No vision change Ears/Nose/Throat: No epistaxis, No recent hearing loss Respiratory: As described under HPI Cardiovascular: As described under HPI Gastrointestinal: As described under HPI; No constipation, No diarrhea, No vomiting Genitourinary: No dysuria, No hematuria Musculoskeletal: no symptoms reported Skin: No rash on exposed areas, No ulcerations on exposed areas Psychiatric/Neurological: anxiety, depression; No seizure, No focal weakness, No syncope Hematologic: No bleeding abnormalities [id number]-[id number] Hx Patient Social History 2nd Hand Smoke Exposure: Yes Immunizations Up To Date Date of Pneumonia Vaccine: Dec 27, 2014 Past Medical History PMH As described under Assessment. Family Medical History Family Medical History: He reports no known family h/o CAD. Allergies and Home Medications Allergies Coded Allergies: No Known Drug Allergies (Unverified , 12/06/18) Patient Home Medication List Home Medication List Reviewed: Yes Benztropine Mesylate (Benztropine Mesylate) 1 Mg Tablet, 1 MG PO DAILY, (Reported) Entered as Reported by: VALENTIN KIMBALL on 12/07/18 1109 Benztropine Mesylate (Benztropine Mesylate) 1 Mg Tablet, 2 MG PO HS, (Reported) Entered as Reported by: VALENTIN KIMBALL on 12/07/18 1105 Bupropion HCl (Wellbutrin Sr) 200 Mg Tablet.er, 200 MG PO DAILY, (Reported) Entered as Reported by: BCEKY LIU on 12/06/18 1107 Bupropion HCl (Wellbutrin Sr) 100 Mg Tablet.er, 100 MG PO HS, (Reported) Entered as Reported by: AFSANEH LAMAR on 12/22/18 1950 Clonazepam (Clonazepam) 1 Mg Tablet, 1 MG PO BID Prescribed by: FAUSTO VITALE on 12/29/18 0907 Metoprolol Tartrate (Metoprolol Tartrate) 50 Mg Tablet, 50 MG PO BID Prescribed by: FAUSTO VITALE on 12/28/18 09 Nicotine (Nicotine Patch) 1 Each Patch.td24, 21 MG TD DAILY, (Reported) Entered as Reported by: VALENTIN KIMBALL on 12/23/18 0950 Sennosides (Senna) 8.6 Mg Tablet, 8.6 MG PO BID Prescribed by: FAUSTO VITALE on 12/28/18 0907 Physical Exam-Cardiology Physical Exam Vital Signs/I&O 08/08/21 08/08/21 08/08/21 08/08/21 01:43 01:45 01:50 03:30 Temp 36.8 36.8 Pulse 87 98 Resp 20 24 B/P (MAP) 150/97 (114) 137/111 Pulse Ox 87 98 O2 Delivery Nasal Cannula Room Air Nasal Cannula Nasal Cannula O2 Flow Rate 2.00 4.00 08/08/21 08/08/21 08/08/21 08/08/21 03:46 03:47 04:00 04:00 Temp 36.5 Pulse 92 66 79 Resp 16 16 B/P (MAP) 166/112 (130) 127/79 (95) Pulse Ox 94 97 91 O2 Delivery Room Air Nasal Cannula Nasal Cannula O2 Flow Rate 4.00 4.00 4.00 08/08/21 08/08/21 08/08/21 08/08/21 04:15 04:30 05:00 05:30 Pulse 64 48 52 48 Resp 26 23 24 14 B/P (MAP) 112/81 (91) 100/53 (69) 104/74 (84) 112/58 (76) Pulse Ox 96 97 94 95 O2 Delivery Nasal Cannula Nasal Cannula Nasal Cannula Nasal Cannula O2 Flow Rate 4.00 4.00 4.00 4.00 08/08/21 08/08/21 08/08/21 08/08/21 06:00 06:43 06:44 07:00 Pulse 48 59 Resp 18 B/P (MAP) 108/61 (77) Pulse Ox 98 97 O2 Delivery Nasal Cannula Nasal Cannula Nasal Cannula O2 Flow Rate 4.00 4.00 2.00 08/08/21 08/08/21 08/08/21 08/08/21 07:00 08:00 08:24 09:00 Temp 36.8 Pulse 47 67 53 Resp 15 23 17 B/P (MAP) 112/61 (78) 123/63 (83) 123/71 (88) Pulse Ox 95 95 99 O2 Delivery Nasal Cannula Nasal Cannula Nasal Cannula O2 Flow Rate 4.00 4.00 4.00 Capillary Refill : Less Than 3 Seconds Constitutional: AAO x 3, well-developed, well-nourished HEENT: hearing is well preserved, oral hygience is good Neck: No carotid bruit; carotid pulses are 2 + bilaterally Respiratory: No accessory muscle use, No respiratory distress; chest expansion is symmetric, chest is bilaterally symmetric, other (coarse breath sounds bases bilat) Cardiovascular: regular rate-rhythm; No JVD; bradycardia, S1 and S2 Gastrointestinal: No tender; soft, round, audible bowel sounds Extremities: no lower extremity edema bilateral Neurologic/Psychiatric: grossly intact Skin: No rash on exposed areas, No ulcerations on exposed areas; other (multiple excoriations to legs bilat) Data Review Labs Laboratory Tests 08/08/21 01:50: White Blood Count 9.6, Red Blood Count 4.81, Hemoglobin 14.5, Hematocrit 43, Mean Corpuscular Volume 90, Mean Corpuscular Hemoglobin 30, Mean Corpuscular Hemoglobin Concent 33, Red Cell Distribution Width 12.2, Platelet Count 210, Mean Platelet Volume 9.2, Immature Granulocyte % (Auto) 0, Neutrophils (%) (Auto) 77H, Lymphocytes (%) (Auto) 12, Monocytes (%) (Auto) 9, Eosinophils (%) (Auto) 2, Basophils (%) (Auto) 0, Neutrophils # (Auto) 7.4, Lymphocytes # (Auto) 1.2, Monocytes # (Auto) 0.8, Eosinophils # (Auto) 0.1, Basophils # (Auto) 0.0, Immature Granulocyte # (Auto) 0.0, Prothrombin Time 13.3, INR Comment 1.0, Activated Partial Thromboplast Time 33, Sodium Level 136, Potassium Level 3.9, Chloride Level 106, Carbon Dioxide Level 18L, Anion Gap 12, Blood Urea Nitrogen 18, Creatinine 1.15, Estimat Glomerular Filtration Rate 67, BUN/Creatinine Ratio 16, Glucose Level 119H, Calcium Level 8.9, Corrected Calcium 9.0, Magnesium Level 2.2, Total Bilirubin 0.4, Aspartate Amino Transf (AST/SGOT) 19, Alanine Aminotransferase (ALT/SGPT) 20, Alkaline Phosphatase 98, Myoglobin 186.7H, Troponin I 0.079H, B-Type Natriuretic Peptide 172.1H, Total Protein 6.7, Albumin 3.9 08/08/21 02:05: Influenza Type A (RT-PCR) Not Detected, Influenza Type B (RT-PCR) Not Detected, SARS-CoV-2 RNA (RT-PCR) Not Detected 08/08/21 08:19: Troponin I 6.172*H 08/08/21 09:35: Prothrombin Time 14.1, INR Comment 1.1, Activated Partial Thromboplast Time 47H A/P-Cardiology Assessment/Admission Diagnosis NSTEMI Tobaccosim - cessation advised Schizophrenia - treated, controlle Discussion and Recomendations NSTEMI - advise cardiac cath to eval coronary status - Echocardiogram to eval structure and function Monitor lab closely Replace electrolytes as indicated Reduce BB d/t episodes of sinus bradycardia (albeit asymptomatic) Continue ASA and Plavix Further recs will be based on his hospital course Clinical Quality Measures AMI/AHF: ASA po Prior to arrival: ALEXANDRA Fernandez MD FACP FAC CCDS Aug 08, 2021 11:55
[2021-08-08] MEDS ORDERED: MELA5TAB14 PO (12:17)
[2021-08-08] MEDS ORDERED: POLY17PO6 PO (12:17)
[2021-08-08] MEDS ORDERED: PRAM0.257 PO (12:17)
[2021-08-08] MEDS ORDERED: METO-333 PO (12:17)
[2021-08-08] MEDS ORDERED: LORA-404 PO ×2 (12:17)
[2021-08-08] MEDS ORDERED: [UNRECOGNIZED DRUG - CODE] PO (12:17)
[2021-08-08] MEDS ORDERED: SIME80TA16 PO (12:17)
[2021-08-08] MEDS ORDERED: BETH25TA2 PO (12:17)
[2021-08-08] MEDS ORDERED: FLUO20CA48 PO (12:17)
[2021-08-08] MEDS ORDERED: CNC1KV IM (12:17)
[2021-08-08] MEDS ORDERED: SENN-234 PO (12:17)
[2021-08-08] MEDS ORDERED: NICO-533 TD (12:17)
[2021-08-08] MEDS ORDERED: TMSL.4C PO (12:17)
[2021-08-08] MEDS ORDERED: PHEN-639 PO (12:17)
[2021-08-08] MEDS ORDERED: ACET-2267 PO (12:17)
[2021-08-08] MEDS ORDERED: BENZ0.5T42 PO (12:17)
[2021-08-08] MEDS ORDERED: LOSA50TA63 PO (12:17)
[2021-08-08] MEDS ORDERED: OLAN20TA34 PO ×2 (12:17→15:15)
[2021-08-08] MEDS ORDERED: MELA3TAB39 PO (12:35)
[2021-08-08] MEDS ORDERED: LORA-405 PO (12:35)
[2021-08-08] MEDS ORDERED: OLN5T PO (12:36)
[2021-08-08] MEDS ORDERED: ACETAMINOPHEN 500 MG TAB (TYLENOL) PO PRN (19:15)
[2021-08-08] MEDS ORDERED: PHENAZOPYRIDINE 100 MG (PYRIDIUM) TABLET PO PRN (19:15)
[2021-08-08] MEDS ORDERED: NON-FORMULARY MEDICATION 1 EA EA (Pramipexole Di-HCl (Pramipexole Dihydrochloride) 0.25 MG PO SCH (21:00)
[2021-08-08] MEDS ORDERED: NON-FORMULARY MEDICATION 1 EA EA (Olanzapine 20 MG) PO SCH (21:00)
[2021-08-08] MEDS ORDERED: NON-FORMULARY MEDICATION 1 EA EA (Melatonin 10 MG) PO SCH (21:00)
[2021-08-08] MEDS ORDERED: LORazepam 0.5 MG (ATIVAN) TABLET ONE (21:29)
[2021-08-08] MEDS ORDERED: meTOprolol TARTRATE 25 MG (LOPRESSOR) TABLET ONE (21:31)
[2021-08-08] MEDS: LORazepam 0.5 MG (ATIVAN) TABLET PO SCH (21:43)
[2021-08-08] MEDS: BENZTROPINE MESYLATE 1 MG (COGENTIN) TAB PO SCH (21:43)
[2021-08-08] MEDS: meTOprolol TARTRATE 25 MG (LOPRESSOR) TABLET PO SCH (21:43)
[2021-08-08] MEDS: SENNOSIDES 8.6 MG (SENOKOT) TAB PO SCH (21:43)
[2021-08-08] MEDS: TAMSULOSIN 0.4 MG (FLOMAX) CAP PO SCH (21:43)
[2021-08-08] MEDS: BETHANECHOL 25 MG (URECHOLINE) TAB PO SCH (21:43)
[2021-08-08] MEDS: SIMETHICONE 80 MG (MYLICON) CHEW PO SCH (21:46)
[2021-08-08] MEDS ORDERED: NICOTINE 14 MG (NICODERM) PATCH TD PRN (22:00)
[2021-08-09 04:00] VITALS: BP 123/62
[2021-08-09] MEDS: LACTATED RINGERS 1,000 ML IV SCH (04:39)
[2021-08-09 05:05] LABS: CALCIUM 8.3 MG/DL (8.5-10.1)
[2021-08-09 05:09] LABS: CREATININE SERUM 0.98 MG/DL (0.60-1.30)
[2021-08-09] MEDS: LORazepam 0.5 MG (ATIVAN) TABLET PO SCH (06:14)
[2021-08-09] MEDS: BETHANECHOL 25 MG (URECHOLINE) TAB PO SCH (06:14)
--- NOTE | 2021-08-09 07:53 | Progress Note ---
Subjective Subjective Date Seen by Provider: Aug 09, 2021 Time Seen by Provider: 07:20 Mr. Mccloud was awake this morning but was A&Ox1 only oriented to person. 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 This morning he denied pain and did not have any complaints. His medication list has been reconciled and his home meds were restarted. Yesterday he underwent heart catheterization with Dr. Jeronimo which showed multi-vessel disease which would require CABG. Family decided to not undergo intervention. His right wrist is covered with gauze. Review of Systems ROS Unable to Obtain: Unable to obtain ROS d/t patient level of awareness Objective Exam Vital Signs Vital Signs Date Time Temp Pulse Resp B/P (MAP) Pulse Ox O2 Delivery O2 Flow Rate FiO2 08/09/21 04:00 37.0 48 20 123/62 (82) 96 Room Air 08/08/21 23:57 36.6 54 18 107/51 (69) 97 Room Air 08/08/21 21:00 98 Nasal Cannula 3.00 08/08/21 20:25 37.4 08/08/21 20:00 52 17 127/53 (77) 98 Nasal Cannula 2.00 08/08/21 19:00 50 08/08/21 16:28 36.7 08/08/21 14:00 55 25 146/71 (96) 96 Nasal Cannula 4.00 08/08/21 12:58 36.2 08/08/21 12:22 41 08/08/21 12:00 44 12 113/63 (80) 97 Nasal Cannula 4.00 08/08/21 12:00 97 Nasal Cannula 3.00 08/08/21 09:00 53 17 123/71 (88) 99 Nasal Cannula 4.00 08/08/21 08:30 97 Nasal Cannula 3.00 08/08/21 08:24 36.8 08/08/21 08:00 67 23 123/63 (83) 95 Nasal Cannula 4.00 I & O 08/09/21 07:00 Intake Total 1200 ml Output Total 3950 ml Balance -2750 ml General Appearance: No Apparent Distress HEENT: PERRL/EOMI Neck: Normal Inspection; No Lymphadenopathy (L), No Lymphadenopathy (R) Respiratory: Chest Non Tender, Lungs Clear, Normal Breath Sounds, No Accessory Muscle Use, No Respiratory Distress Cardiovascular: No Edema, Normal Peripheral Pulses, Bradycardia Gastrointestinal: Normal Bowel Sounds, Non Tender, Soft Extremity: Normal Capillary Refill, Normal Inspection, Other (Cath placement was right wrist. Covered in gauze.) Neurologic/Psychiatric: No Alert, No Oriented x3 (Oriented only to person. Thought he was in [place] and did not know the year.) Skin: Normal Color, Warm/Dry Lymphatic: No Adenopathy (Head and neck) Results Lab Laboratory Tests 08/08/21 08:19: Troponin I 6.172*H 08/08/21 09:35: Prothrombin Time 14.1, INR Comment 1.1, Activated Partial Thromboplast Time 47H 08/09/21 04:25: Sodium Level 134L, Potassium Level 4.0, Chloride Level 106, Carbon Dioxide Level 20L, Anion Gap 8, Blood Urea Nitrogen 12, Creatinine 0.98, Estimat Glomerular Filtration Rate 81, BUN/Creatinine Ratio 12, Glucose Level 95, Calcium Level 8.3L, Triglycerides Level 79, Cholesterol Level 112, LDL Cholesterol Direct 68, VLDL Cholesterol 16, HDL Cholesterol 30L Assessment/Plan Assessment/Plan Assessment and Plan Assessment: Chest pain - NSTEMI - Heart cath report from Dr. Jeronimo showed NSTEMI with multi-vessel disease Elevated cardiac enzymes - Myoglobin 186.7 - Troponin 6.172 Elevated BNP - 172.1 Bradycardia - 2/2 medication Schizophrenia AMS Plan: Currently on IVF clopidogrel, aspirin, and morphine Home meds reconciled and restarted Heart catheterization done with Dr. Jeronimo via the right wrist showing multi-ve ssel disease - Severe distal left main coronary artery stenosis extending to the ostium of the LAD - Severe proximal right coronary artery stenosis Patient's family did not want to undergo intervention Consider d/c back to SNF with supportive care Clinical Quality Measures AMI/AHF: ASA po Prior to arrival: No Supervisory-Addendum Brief Verification & Attestation Participated in pt care: history, MDM, physical Personally performed: exam, history, MDM, supervision of care Care discussed with: Medical Student Procedures: n/a Results interpretation: Verified all documentation CHEST PAIN NSTEMI ELEVATED BNP BRADYCARDIA CHRONIC SCHIZOPHRENIA HYPERTENSION EXTRAPYRAMIDAL SYMPTOMS CHRONIC CONSTIPATION CHRONIC TOBACCOISM SEE DISCHARGE SUMMARY FOR DETAILS LOGAN MURPHY Aug 09, 2021 07:53 FAUSTO BEACH MD Aug 10, 2021 21:28
[2021-08-09] MEDS ORDERED: ALPHA D GALACTOSIDASE 400 UNIT PO SCH (08:00)
[2021-08-09] MEDS ORDERED: polyethylene glycoL POWDER 17 GM (MIRALAX) PACK PO SCH (09:00)
[2021-08-09] MEDS ORDERED: LOSARTAN 50 MG (COZAAR) TAB PO SCH (09:00)
[2021-08-09] MEDS ORDERED: FLUoxetine HCL 20 MG (PROzac) CAP PO SCH (09:00)
[2021-08-09 09:12] VITALS: BP 131/65
[2021-08-09] MEDS: CLOPIDOGREL 75 MG (PLAVIX) TABLET PO SCH (09:16)
[2021-08-09] MEDS: TAMSULOSIN 0.4 MG (FLOMAX) CAP PO SCH (09:17)
[2021-08-09] MEDS: ASPIRIN E.C. 81 MG (ECOTRIN) TAB PO SCH (09:17)
[2021-08-09] MEDS: BENZTROPINE MESYLATE 1 MG (COGENTIN) TAB PO SCH (09:17)
[2021-08-09] MEDS: SENNOSIDES 8.6 MG (SENOKOT) TAB PO SCH (09:18)
[2021-08-09] MEDS ORDERED: ASPI-1238 PO (09:22)
[2021-08-09] MEDS ORDERED: CLOP75TA28 PO (09:22)
--- NOTE | 2021-08-09 09:24 | Discharge Inst-Skilled Nursing ---
Discharge Inst-Skilled NF Reconcile Patient Problems Problems Reviewed?: Yes Patient Instructions Patient Problems: coronary artery disease hypertension tobaccoism schizophrenia Consult/Follow Up/Orders Follow Up Appt.: 1 wk [facility] 2-[address] dahl Skilled NF Admit to: [facility] Certification (SNF) I certify that SNF services are required to be given on an inpatient basis because of the above named patient's need for fdc care on a continuing basis for the conditions(s) for which he/she was receiving inpatient hospital services prior to his/her transfer to the SNF. Fdc Facility Order: Nursing Services Oxygen Delivery Method: Room Air Discharge Diet: Regular Diet Daily Activity as Tolerated: Yes Resuscitation Status: Do Not Resuscitate New & Resume Previous Orders New & Resume Previous Orders resume previous orders please ask jose daily about chest pain he has been instructed that if he has chest pain he is to ask for "chest pain pills" for his nitro Fausto Vitale Aug 09, 2021 09:22 FAUSTO VITALE MD Aug 09, 2021 09:24
[2021-08-09] MEDS ORDERED: NITR0.4T42 SL (09:25)
--- NOTE | 2021-08-09 09:27 | Discharge Summary ---
Diagnosis/Chief Complaint Date of Admission Aug 08, 2021 at 02:05 Date of Discharge Discharge Date: Aug 09, 2021 Discharge Time: 09 Admission Diagnosis Admission Diagnosis CHEST PAIN NSTEMI ELEVATED BNP BRADYCARDIA CHRONIC SCHIZOPHRENIA HYPERTENSION EXTRAPYRAMIDAL SYMPTOMS CHRONIC CONSTIPATION CHRONIC TOBACCOISM Discharge Diagnosis MULTIVESSEL CORONARY ARTERY DISEASE CHEST PAIN NSTEMI ELEVATED BNP BRADYCARDIA CHRONIC SCHIZOPHRENIA HYPERTENSION EXTRAPYRAMIDAL SYMPTOMS CHRONIC CONSTIPATION CHRONIC TOBACCOISM Reason Hospital Visit PT aDMITTED TO THE HOSPITAL WITH MENTAL STATUS CHANGES, ChEST PAIN/ANGINA, AND FOUND TO HAVE ABnORMAL CARDIAC ENZyMES ON EVAL IN THE ER, ADMITTED FOR NSTEMI Discharge Summary Procedures: HEART CATHETERIZATION Consultations CARDIOLOGY Discharge Physical Examination Allergies: Coded Allergies: No Known Drug Allergies (Unverified , 12/06/18) Vitals & I&Os Vital Signs Date Time Temp Pulse Resp B/P (MAP) Pulse Ox O2 Delivery O2 Flow Rate FiO2 08/09/21 11:00 08/09/21 09:12 49 18 93 Room Air 08/09/21 07:58 36.8 08/08/21 21:00 3.00 General Appearance: Alert, Oriented X3, Cooperative, No Acute Distress HEENT: Atraumatic, PERRLA, Mucous Memb Moist/[place] Respiratory: Clear to Auscultation, Normal Air Movement Cardiovascular: Regular Rate Abdominal: Normal Bowel Sounds, Soft, No Tenderness Extremities: No Clubbing, No Cyanosis Skin: Other (SCRATCHES ON ARMS AND LEGS FROM PT'S SELF SCRATCHING BEHAVIORS - DRY SKIN ON ARMS/LEGS) Neuro: Normal Speech, Cranial Nerves 3-12 NL Psych/Mental Status: Mental Status NL, Mood NL Hospital Course Was the Problem List Reviewed?: Yes CHEST PAIN NSTEMI ELEVATED BNP BRADYCARDIA CHRONIC SCHIZOPHRENIA HYPERTENSION EXTRAPYRAMIDAL SYMPTOMS CHRONIC CONSTIPATION CHRONIC TOBACCOISM CHEST PAIN WITH NSTEMI AND ELEVATED BNP - SEE HEART CATH DOCUMENTATION - -PT HAS exTENSIVE MULTIVESSEL DISEASE - THE PATIENT IS NOT INTERESTED, NOR IS HIS FAMILY INTERESTED IN BYPASS WHICH IS WHAT WOULD BE DEFINITIVE TREATMENT. HE IS AN ACTIVE TOBACCO USER, HIS FAMILY DOES NOT THINk THAT HE WOULD BE ABLE TO BE COMPLIANT WITH LEAVING HIS WOUNDS ALONE FROM BYPASS. FAMIly HAS DECiDED ON CONSERVATIVE MANAGEMENT AND EVENTUALLY HOSPICE. ANATOMY: Left Main has severe stenosis distally Left Anterior Descending has ostial severe stenosis otherwise mild to moderate disease Left Circumflex has mild to moderate disease nonobstructive disease Right Coronary Artery has severe stenosis proximally LV Gram was not done, pressure was measured Aorta evaluation was done showing hypertensive changes in the aortic arch, no dissection or aneurysm, normal origin of the brachiocephalic artery, left carotid and left subclavian arteries. CONCLUSION: 1. Severe distal left main coronary artery stenosis extending to the ostium of the LAD 2. Severe proximal right coronary artery stenosis BRADYCARDIA - PT ON METOPROLOL, HEART RATE STABLE AT THIS TIME. - WILL CONTINUE WITH METOPROLOL PER HOME REGIMEN, MONITOR HEART RATE. CHRONIC SCHIZOPHRENIA - CONTINUE WITH ANTIPSYCHOTIC USE. HYPERTENSION - PT ON METOPROLOL OUTPATIENT. EXTRAPYRAMIDAL SYMPTOMS - RESTART BENZTROPINE OUTPATIENT CHRONIC CONSTIPATION - WILL RESUME HOME regimEN CHRONIC TOBACCOISM Pending Labs Discharge Condition at discharge STABLE Instructions to patient/family Please see electronic discharge instructions given to patient. Discharge Medications Reviewed and agree with Discharge Medication list on patient's Discharge Instruction sheet Clinical Quality Measures AMI/AHF: ASA po Prior to arrival: FAUSTO Meehan MD Aug 09, 2021 09:27
[2021-08-09] MEDS: meTOprolol TARTRATE 25 MG (LOPRESSOR) TABLET PO SCH (09:36)
[2021-08-09] MEDS: SIMETHICONE 80 MG (MYLICON) CHEW PO SCH (09:36)
[2021-08-09] MEDS ORDERED: OLANZapine 5 MG (ZyPREXA) TAB PO SCH ×2 (14:00→21:00)
[2021-08-09] MEDS ORDERED: LORazepam 1 MG (ATIVAN) TAB PO SCH (14:00)
[2021-08-09] MEDS ORDERED: BENZTROPINE MESYLATE 1 MG (COGENTIN) TAB PO SCH (16:00)
[2021-08-09] MEDS ORDERED: MELATONIN 10 MG TABLET PO SCH (21:00)
[2021-08-09] MEDS ORDERED: PRAMIPEXOLE 0.5 MG TAB (MIRAPEX) PO SCH (21:00)
== END 2021-08-09 11:00 | disposition home or self-care (01) | DRG 281 ==
LOC: EDUNIT# 01:42 → ER 01:43 → ICU 02:05 → EDLOC 02:05
PROVIDERS: ADMIT Family Medicine; ATTEND Family Medicine
PROC: 4A023N7 Measurement of Cardiac Sampling and Pressure, Left Heart, Percutaneous Approach (ICD-10-PCS; principal; 2021-08-08)
PROC: B2111ZZ Fluoroscopy of Multiple Coronary Arteries using Low Osmolar Contrast (ICD-10-PCS; 2021-08-08)
PROC: B3101ZZ Fluoroscopy of Thoracic Aorta using Low Osmolar Contrast (ICD-10-PCS; 2021-08-08)
DX: I21.4 Non-ST elevation (NSTEMI) myocardial infarction (principal); G25.9 Extrapyramidal and movement disorder, unspecified; I25.10 Atherosclerotic heart disease of native coronary artery without angina pectoris; R00.1 Bradycardia, unspecified; F20.9 Schizophrenia, unspecified; I10 Essential (primary) hypertension; K59.09 Other constipation; F17.210 Nicotine dependence, cigarettes, uncomplicated; Z79.82 Long term (current) use of aspirin; F03.90 Unspecified dementia, unspecified severity, without behavioral disturbance, psychotic disturbance, mood disturbance, and anxiety; F41.9 Anxiety disorder, unspecified; J44.9 Chronic obstructive pulmonary disease, unspecified; Z20.822 Contact with and (suspected) exposure to COVID-19; E78.5 Hyperlipidemia, unspecified
CPT/HCPCS: 36221; 36415; 71045; 80048; 80053; 80061; 83735; 83874; 83880; 84484; 85025; 85610; 85730; 87636; 93005; 93041; 93306; 93458